=== PATIENT | female | born 1935 | race Caucasian/White ===

== ENCOUNTER 2017-04-18 17:55 | Inpatient (IN) | payer MEDICARE, BC ==
[2017-04-18 18:51] LABS: Basophils % (A) 1 %; CH 28.9; CHCM 33.1; Eosinophils # (A) 0.5 k/uL (0-0.7); Eosinophils % (A) 6 %; HCT 40.3 % (34.0-46.0); HGB 13.4 gm/dL (11.4-16.0); Luc # (Auto) 0.12; Luc % (Auto) 2; Lymphocytes % (A) 28 %; MCH 29.2 pg (25.0-35.0); MCHC 33.3 g/dL (31.0-37.0); MCV 87.7 fL (80.0-100.0); Mean Platelet Volume 7.5; Monocytes # (A) 0.5 k/uL (0-1.0); Monocytes % (A) 6 %; Neutrophils # (A) 4.2 k/uL (1.3-7.7); Neutrophils % (A) 58 %; RDW 13.8 % (11.5-15.5); WBC 7.3 k/uL (3.8-10.6); WBC (Perox) 7.12
--- NOTE | 2017-04-18 18:52 | XR ---
EXAMINATION TYPE: XR foot complete RT DATE OF EXAM: 04/18/2017 CLINICAL HISTORY: Nonhealing wound of the great toe. History of diabetes TECHNIQUE: Frontal, lateral, and oblique images of the right foot are obtained. COMPARISON: None FINDINGS: There is no acute fracture/dislocation evident in the right foot. The there is loss of renee int space of the fifth distal interphalangeal joint and to a lesser degree of the remaining distal in terphalangeal joints. Bridging osteophytes are seen of the fifth distal interphalangeal joint. Mild soft tissue swelling is seen of the first digit without evidence of subcutaneous emphysema or ra diopaque foreign body. No cortical disruption, cortical erosion, or periosteal reaction is seen. Vasc ular calcifications are noted of the dorsalis pedis artery and its branches. Prior fracture deformity is seen of the fifth metatarsal distally. IMPRESSION: 1. Soft tissue swelling of the first digit without evidence of periosteal reaction, subcutaneous emph ysema, or cortical erosion to suggest underlying osteomyelitis. 2. Prior fracture deformity of the right distal metatarsal. 3. Osteoarthritic changes. 4. There is no acute fracture or dislocation in the right foot.
[2017-04-18] MEDS ORDERED: LEVOFLOXACIN 750MG-D5W PMX 750 MG in DEXTROSE/WATER 1 150ML.BAG IVPB STA (19:00)
[2017-04-18] MEDS ORDERED: ACETAMINOPHEN TAB 325 MG TAB PO PRN ×2 (19:05→21:51)
[2017-04-18] MEDS ORDERED: NALOXONE 0.4 MG/ML 1 ML VIAL IV PRN (19:05)
--- NOTE | 2017-04-18 19:05 | ED ---
General Adult HPI - General Source: patient, family, RN notes reviewed Mode of arrival: wheelchair Limitations: physical limitation <Shaq Belcher - Last Filed: 04/18/17 19:03> <Mihai Cortez - Last Filed: 04/18/17 21:51> - General Chief complaint: Wound/Laceration Stated complaint: wound infection Time Seen by Provider: 04/18/17 18:15 - History of Present Illness Initial comments: 81-year-old female presents emergency Department with chief complaint of infection to her right foot. Patient states she's been dealing with this for a while now. Patient states she is seen in the wound Center by Dr. Khan and has had increase in her symptoms with new growth of pseudomonas. Patient was sent over here for admission. Denies any fevers or chills she does complain of increasing pain in her foot. (Shaq Belcher) - Related Data Home Medications Medication Instructions Recorded Confirmed Gabapentin [Neurontin] 100 mg PO TID 11/29/16 04/18/17 Insulin NPH/Reg Insulin 70/30 20 unit SQ W/SUPPER 11/29/16 04/18/17 [humuLIN 70/30 VIAL] Insulin NPH/Reg Insulin 70/30 35 unit SQ W/BRKFST 11/29/16 04/18/17 [humuLIN 70/30 VIAL] Vitamin B Complex 1 cap PO DAILY 11/29/16 04/18/17 metFORMIN HCL 1,000 mg PO BID-W/MEALS 11/29/16 04/18/17 Cholecalciferol [Vitamin D3] 1,000 unit PO DAILY 12/13/16 04/18/17 Nitroglycerin Sl Tabs [Nitrostat] 0.4 mg SUBLINGUAL Q5M PRN 12/13/16 04/18/17 Omeprazole [PriLOSEC] 40 mg PO AC-BRKFST 12/13/16 04/18/17 Pentoxifylline 400 mg PO TID 12/13/16 04/18/17 Sertraline HCl [Zoloft] 25 mg PO DAILY 12/13/16 04/18/17 Simvastatin [Zocor] 40 mg PO HS 12/13/16 04/18/17 Trospium Chloride [Sanctura] 20 mg PO HS 12/13/16 04/18/17 Acetaminophen Tab [Tylenol Tab] 325 mg PO Q6H PRN 03/21/17 04/18/17 Diltiazem Oral [Cardizem Oral] 30 mg PO TID 03/21/17 04/18/17 Furosemide [Lasix] 40 mg PO DAILY 03/21/17 04/18/17 Metoprolol Succinate (ER) [Toprol 25 mg PO BID 03/21/17 04/18/17 Xl] Potassium Chloride [K-Tab ER] 20 meq PO DAILY 03/21/17 04/18/17 Cephalexin [Keflex] 500 mg PO Q6H 04/11/17 04/18/17 Aspirin EC [Ecotrin Low Dose] 81 mg PO DAILY 04/18/17 04/18/17 Ibuprofen [Motrin] 200 mg PO BID PRN 04/18/17 04/18/17 Lisinopril [Zestril] 2.5 mg PO DAILY 04/18/17 04/18/17 Allergies Allergy/AdvReac Type Severity Reaction Status Date / Time morphine Allergy Rapid Verified 04/18/17 18:05 Heart Rate Review of Systems ROS Other: All systems not noted in ROS Statement are negative. <Shaq Belcher - Last Filed: 04/18/17 19:03> ROS Other: All systems not noted in ROS Statement are negative. <Mihai Cortez - Last Filed: 04/18/17 21:51> ROS Statement: Those systems with pertinent positive or pertinent negative responses have been documented in the HPI. Past Medical History Past Medical History: Coronary Artery Disease (CAD), Cancer, Diabetes Mellitus, Hearing Disorder / Deafness, Hypertension, Osteoarthritis (OA) Additional Past Medical History / Comment(s): diverticultis, rt arm fx, cervical cancer, pancreatitis, right foot infection History of Any Multi-Drug Resistant Organisms: None Reported, Other MDRO Date of last positivie culture/infection: 2016 MDRO Source:: right foot Past Surgical History: Bowel Resection, Hysterectomy, Orthopedic Surgery Past Anesthesia/Blood Transfusion Reactions: No Reported Reaction Past Psychological History: No Psychological Hx Reported Smoking Status: Former smoker Past Alcohol Use History: None Reported Past Drug Use History: None Reported - Past Family History Mother Family Medical History: No Reported History <Shaq Belcher - Last Filed: 04/18/17 19:03> General Exam Limitations: physical limitation General appearance: alert, in no apparent distress Neck exam: Present: normal inspection. Absent: tenderness, meningismus, lymphadenopathy Respiratory exam: Present: normal lung sounds bilaterally. Absent: respiratory distress, wheezes, rales, rhonchi, stridor Cardiovascular Exam: Present: regular rate, normal rhythm, normal heart sounds. Absent: systolic murmur, diastolic murmur, rubs, gallop, clicks Extremities exam: Present: other (Right foot there is a wound on the dorsal aspect of the foot just proximal to the first MTP approximately 1 cm deep 1 cm wide mildly tender) <Shaq Belcher - Last Filed: 04/18/17 19:03> Course <Shaq Belcher - Last Filed: 04/18/17 19:03> <Mihai Cortez - Last Filed: 04/18/17 21:51> Vital Signs 04/18/17 04/18/17 18:01 19:21 Temperature 97.0 F L 98.2 F Pulse Rate 77 69 Respiratory 16 20 Rate Blood Pressure 153/98 170/80 O2 Sat by Pulse 98 98 Oximetry - Reevaluation(s) Reevaluation #1: 04/18/17 21:50 21 4 3 times a day when necessary brought to my attention that patient question of a hives on the left forearm family is concerned about ALLERGIC reaction to quinolones patient has no chest pain no shortness of breath no tightening of the throat. On examination I did notice that there was area which looks like hives about 5 x 6 cm in size on the left forearm Levaquin was stopped patient was given Benadryl 50 mg IV there were no other signs of any systemic ALLERGIC reaction at this point Levaquin was discontinued and patient was started on is cefepime the patient was hemodynamically absolutely stable (Mihai Cortez) Medical Decision Making - Lab Data Result diagrams: 04/18/17 18:38 <Shaq Belcher - Last Filed: 04/18/17 19:03> - Lab Data Result diagrams: 04/18/17 18:38 04/18/17 20:08 <Mihai Cortez - Last Filed: 04/18/17 21:51> - Lab Data Lab Results 04/18/17 04/18/17 Range/Units 18:38 18:38 WBC 7.3 (3.8-10.6) k/uL RBC 4.60 (3.80-5.40) m/uL Hgb 13.4 (11.4-16.0) gm/dL Hct 40.3 (34.0-46.0) % MCV 87.7 (80.0-100.0) fL MCH 29.2 (25.0-35.0) pg MCHC 33.3 (31.0-37.0) g/dL RDW 13.8 (11.5-15.5) % Plt Count 203 (150-450) k/uL Neutrophils % 58 % Lymphocytes % 28 % Monocytes % 6 % Eosinophils % 6 % Basophils % 1 % Neutrophils # 4.2 (1.3-7.7) k/uL Lymphocytes # 2.0 (1.0-4.8) k/uL Monocytes # 0.5 (0-1.0) k/uL Eosinophils # 0.5 (0-0.7) k/uL Basophils # 0.0 (0-0.2) k/uL Plasma Lactic Acid [place] 2.0 (0.7-2.0) mmol/L Disposition <Shaq Belcher - Last Filed: 04/18/17 19:03> <Mihai Cortez - Last Filed: 04/18/17 21:51> Clinical Impression: Diabetic foot ulcer, Failure of outpatient treatment Disposition: ADMITTED IP TO THIS HOSP Condition: Good
[2017-04-18 20:43] LABS: Anion Gap 12 mmol/L; Blood Urea Nitrogen 19 mg/dL (7-17); Calcium 9.5 mg/dL (8.4-10.2); Carbon Dioxide 26 mmol/L (22-30); Chloride 103 mmol/L (98-107); Glucose 119 mg/dL (74-99); Non-African American GFR(MDRD) >60 (>60 ml/min/1.73 sqM); Potassium 4.6 mmol/L (3.5-5.1); Sodium 141 mmol/L (137-145)
[2017-04-18] MEDS ORDERED: diphenhydrAMINE 50 MG/ML 1 ML VIAL IVP STA ×2 (21:46→21:49)
[2017-04-18] MEDS ORDERED: CEFEPIME 2 GM in SODIUM CHLORIDE 0.9% 50 ML IVPB STA (21:48)
[2017-04-18] MEDS ORDERED: diphenhydrAMINE 50 MG/ML 1 ML VIAL IVP PRN (21:49)
[2017-04-18] MEDS ORDERED: NITROGLYCERIN SL TABS 0.4 MG TAB SUBLINGUAL PRN (21:51)
--- NOTE | 2017-04-18 23:02 | P.HPIM ---
History of Present Illness H&P Date: 04/18/17 Chief Complaint: Right foot History of presenting complaint: This is a pleasant 81-year-old patient of Dr. Ulysses Jaramillo. Chronic stable medical conditions include coronary artery disease, diabetes, hard of hearing, osteoarthritis, peripheral neuropathy. Patient is a long-standing wound on the ball of the right big toe and has been following at the wound care center by Dr. Luciano the probably every week. Now patient noticed that is becoming more painful red and is draining from it. Cultures taken last seen by Dr. Luciano showing Pseudomonas. Has patient is admitted to the hospital. Patient denies any fever nausea vomiting. Appetite is maintained. GEN.: None EYES: None HEENT: Decreased hearing NECK: None RESPIRATORY: None CARDIOVASCULAR: None GASTROINTESTINAL: None GENITOURINARY: None MUSCULOSKELETAL: Pain in the joints LYMPHATICS: None HEMATOLOGICAL: None PSYCHIATRY: None NEUROLOGICAL: Numbness in the feet Past medical history: Coronary artery disease, diabetes, [place] arthritis, diverticulitis, rectal cancer, peripheral neuropathy, recent pancreatitis Past surgical history: Recently stones removed leading to pancreatitis, bowel resection, hysterectomy, orthopedic surgery, cholecystectomy Social history: Patient's smoked for a smaller time remotely, no alcohol, lives by herself, uses a walker Family history: Reviewed, unremarkable VITAL SIGNS: 98.8, 74, 18, 121/46, 98% room air GENERAL: Average built BMI 31.9, sitting up, comfortable. EYES: Pupils equal. Conjunctiva normal. HEENT: External appearance of nose and ears normal, oral cavity grossly normal, decreased hearing. NECK: JVD not raised; masses not palpable. HEART: First and second heart sounds are normal; no edema. LUNGS: Respiratory rate normal; clear to auscultation. ABDOMEN: Soft, nontender, liver spleen not palpable, no masses palpable. LYMPHATICS: No lymph nodes palpable in the axilla and neck. PSYCH: Alert and oriented x3; mood and affect normal. NEUROLOGICAL: Cranial nerves grossly intact; no facial asymmetry, power grossly intact, decreased sensation distally especially the feet. DERMATOLOGICAL: Ulcer/wound with surrounding cellulitis around the ball of the big toe, with tenderness Investigations: White count 7.3, hemoglobin 13.4, potassium 4.6, BUN 19, creatinine 0.70 Wound culture growing pseudomonas aeruginosa from 1 week ago Assessment: Acute and chronic wound to diabetic ulcer following peripheral neuropathy at the ball of the right big toe and feet outpatient treatment no growing pseudomonas and culture, rule out ostia mellitus -Coronary artery disease -Diabetes mellitus type 2 chronically on insulin, causing peripheral neuropathy Chronically hard of hearing Primary osteoarthritis multiple joints bilateral special of the hands and knees Chronic gait dysfunction Pain: Consultation to ID and vascular surgery is done. Home medications be resumed. Accu-Cheks be followed. Patient started on IV cefepime. Care was discussed the patient and questions were answered. Past Medical History Past Medical History: Coronary Artery Disease (CAD), Cancer, Diabetes Mellitus, Hearing Disorder / Deafness, Hypertension, Osteoarthritis (OA) Additional Past Medical History / Comment(s): diverticultis, rt arm fx, cervical cancer, pancreatitis, right foot infection, gall stones and removal History of Any Multi-Drug Resistant Organisms: None Reported, Other MDRO Date of last positivie culture/infection: 2016 MDRO Source:: right foot Past Surgical History: Bowel Resection, Hysterectomy, Orthopedic Surgery Past Anesthesia/Blood Transfusion Reactions: No Reported Reaction Past Psychological History: No Psychological Hx Reported Smoking Status: Former smoker Past Alcohol Use History: None Reported Additional Past Alcohol Use History / Comment(s): Smoked sporadically for a few yrs, quit in her 30's. Past Drug Use History: None Reported - Past Family History Mother Family Medical History: No Reported History Medications and Allergies Home Medications Medication Instructions Recorded Confirmed Type Gabapentin [Neurontin] 100 mg PO TID 11/29/16 04/18/17 History Insulin NPH/Reg Insulin 70/30 20 unit SQ W/SUPPER 11/29/16 04/18/17 History [humuLIN 70/30 VIAL] Insulin NPH/Reg Insulin 70/30 35 unit SQ W/BRKFST 11/29/16 04/18/17 History [humuLIN 70/30 VIAL] Vitamin B Complex 1 cap PO DAILY 11/29/16 04/18/17 History metFORMIN HCL 1,000 mg PO BID-W/MEALS 11/29/16 04/18/17 History Cholecalciferol [Vitamin D3] 1,000 unit PO DAILY 12/13/16 04/18/17 History Nitroglycerin Sl Tabs [Nitrostat] 0.4 mg SUBLINGUAL Q5M PRN 12/13/16 04/18/17 History Omeprazole [PriLOSEC] 40 mg PO AC-BRKFST 12/13/16 04/18/17 History Pentoxifylline 400 mg PO TID 12/13/16 04/18/17 History Sertraline HCl [Zoloft] 25 mg PO DAILY 12/13/16 04/18/17 History Simvastatin [Zocor] 40 mg PO HS 12/13/16 04/18/17 History Trospium Chloride [Sanctura] 20 mg PO HS 12/13/16 04/18/17 History Acetaminophen Tab [Tylenol Tab] 325 mg PO Q6H PRN 03/21/17 04/18/17 History Diltiazem Oral [Cardizem Oral] 30 mg PO TID 03/21/17 04/18/17 History Furosemide [Lasix] 40 mg PO DAILY 03/21/17 04/18/17 History Metoprolol Succinate (ER) [Toprol 25 mg PO BID 03/21/17 04/18/17 History Xl] Potassium Chloride [K-Tab ER] 20 meq PO DAILY 03/21/17 04/18/17 History Cephalexin [Keflex] 500 mg PO Q6H 04/11/17 04/18/17 History Aspirin EC [Ecotrin Low Dose] 81 mg PO DAILY 04/18/17 04/18/17 History Ibuprofen [Motrin] 200 mg PO BID PRN 04/18/17 04/18/17 History Lisinopril [Zestril] 2.5 mg PO DAILY 04/18/17 04/18/17 History Allergies Allergy/AdvReac Type Severity Reaction Status Date / Time levofloxacin [From Levaquin] Allergy Mild Rash/Hives Unverified 04/18/17 22:05 morphine Allergy Rapid Verified 04/18/17 18:05 Heart Rate Results CBC & Chem 7: 04/18/17 18:38 04/18/17 20:08
[2017-04-18] MEDS: HYDROcodone/APAP 5-325MG 1 EACH TAB PO PRN (23:04)
[2017-04-18] MEDS: OXYBUTYNIN XL 5 MG TAB.ER.24 PO SCH (23:51)
[2017-04-18] MEDS: DILTIAZEM ORAL 30 MG TAB PO SCH (23:52)
[2017-04-18] MEDS: ATORVASTATIN 20 MG TAB PO SCH (23:52)
[2017-04-18] MEDS: GABAPENTIN 100 MG CAP PO SCH (23:52)
[2017-04-18] MEDS: PENTOXIFYLLINE 400 MG TABLET.ER PO SCH (23:53)
[2017-04-18] MEDS: METOPROLOL SUCCINATE (ER) 25 MG TAB.ER.24H PO SCH (23:53)
[2017-04-19] MEDS: IBUPROFEN 200 MG TAB PO PRN ×2 (03:30→08:33)
[2017-04-19] MEDS: HYDROcodone/APAP 5-325MG 1 EACH TAB PO PRN ×4 (03:32→21:00)
[2017-04-19 07:17] LABS: Glucose,Whole Blood 204 mg/dL (75-99)
[2017-04-19] MEDS: POTASSIUM CHLORIDE ER 20 MEQ TAB.ER PO SCH (07:56)
[2017-04-19] MEDS: DILTIAZEM ORAL 30 MG TAB PO SCH ×4 (07:56→20:56)
[2017-04-19] MEDS: GABAPENTIN 100 MG CAP PO SCH ×3 (07:56→20:56)
[2017-04-19] MEDS: ENOXAPARIN 40 MG/0.4 ML SYRINGE SQ SCH (07:56)
[2017-04-19] MEDS: metFORMIN 500 MG TAB PO SCH ×2 (07:56→17:27)
[2017-04-19] MEDS: LISINOPRIL 2.5 MG TAB PO SCH (07:56)
[2017-04-19] MEDS: PANTOPRAZOLE 40 MG TABLET PO SCH (07:56)
[2017-04-19] MEDS: PENTOXIFYLLINE 400 MG TABLET.ER PO SCH ×3 (07:56→17:27)
[2017-04-19] MEDS: METOPROLOL SUCCINATE (ER) 25 MG TAB.ER.24H PO SCH ×2 (07:56→20:55)
[2017-04-19] MEDS: INSULIN NPH/REG INSULIN 70/30 300 UNIT/3 ML VIAL SQ SCH ×2 (07:57→17:26)
[2017-04-19] MEDS: FUROSEMIDE 40 MG TAB PO SCH (07:57)
[2017-04-19] MEDS: SERTRALINE 25 MG TAB PO SCH (07:57)
[2017-04-19] MEDS: ASPIRIN 81 MG CHEW PO SCH (07:57)
[2017-04-19] MEDS ORDERED: CEFEPIME 2 GM in SODIUM CHLORIDE 0.9% 50 ML IVPB SCH (09:00)
[2017-04-19] MEDS: CHOLECALCIFEROL 1,000 UNIT TAB PO SCH (11:53)
[2017-04-19] MEDS: B COMPLEX-VIT C-VIT E-ZINC 1 EACH TAB PO SCH (11:53)
[2017-04-19 12:13] LABS: Glucose,Whole Blood 281 mg/dL (75-99)
[2017-04-19 12:47] VITALS: BMI 31.8
[2017-04-19] MEDS: COLLAGENASE 250 UNIT/GM OINTMENT 30 GM TUBE TOPICAL SCH (13:33)
[2017-04-19 13:43] LABS: Glucose,Whole Blood 238 mg/dL (75-99)
[2017-04-19 17:12] LABS: Glucose,Whole Blood 177 mg/dL (75-99)
[2017-04-19] MEDS ORDERED: LEVOFLOXACIN 750MG-D5W PMX 750 MG in DEXTROSE/WATER 1 150ML.BAG IVPB SCH (20:00)
[2017-04-19] MEDS: ATORVASTATIN 20 MG TAB PO SCH (20:55)
[2017-04-19] MEDS: OXYBUTYNIN XL 5 MG TAB.ER.24 PO SCH (20:55)
[2017-04-19 20:57] LABS: Glucose,Whole Blood 169 mg/dL (75-99)
[2017-04-20] MEDS: HYDROcodone/APAP 5-325MG 1 EACH TAB PO PRN ×4 (01:07→17:15)
[2017-04-20 07:49] LABS: Glucose,Whole Blood 107 mg/dL (75-99)
--- NOTE | 2017-04-20 08:15 | CONS ---
DATE OF SERVICE: 04/19/2017 Reason for consultation is right big toe diabetic foot infection with cellulitis. HISTORY OF PRESENT ILLNESS: The patient is an 81-year-old female who apparently did develop a wound on the dorsum aspect of the right big toe at the base which has been going on for a few weeks now. The patient was noticed to have more swelling and redness on the wound last Tuesday where the patient did have debridement of the wound done and she did have cultures obtained. She was subsequently started on oral Keflex. On evaluation yesterday, she was noticed to have worsening of the swelling and redness with the wound culture showing Pseudomonas aeruginosa. Hence, the patient has been admitted to the hospital. He was started on Cefepime and I was asked to see the patient for further recommendations regarding antibiotic therapy. Patient had been complaining of pain in the big toe to be mostly throbbing 6 to 7 out of 10 and no radiation. The patient did have very minimal drainage from it. Still had some surrounding swelling and redness, but denies any high grade fever or chills. The patient did have x-rays of the right foot done by the ER physician, which did show soft tissue swelling of the first digit without evidence of periosteal reaction, subcutaneous emphysema or cortical erosion. REVIEW OF SYSTEMS: CONSTITUTIONAL: Positive for weakness, but no high grade fever. EYES: No complaint. ENT: No complaint. RESPIRATORY: No complaint. CARDIOVASCULAR: No complaint. GENITOURINARY: No complaint. GASTROINTESTINAL: No complaint. MUSCULOSKELETAL: As per HPI. INTEGUMENTARY: As per HPI. PSYCHOLOGICAL: No complaint. ENDOCRINE: No complaint. NEUROLOGICAL: No complaint. PAST MEDICAL HISTORY: Significant for coronary artery disease, diabetes mellitus, osteoarthritis, diverticulitis,( ) cancer, peripheral neuropathy and pancreatitis. PAST SURGICAL HISTORY: ERCP and stone removal, bowel resection, hysterectomy, cholecystectomy. SOCIAL HISTORY: Remote history of smoking for a short time. No drinking or any drug use. FAMILY HISTORY: No pertinent findings were noticed. Allergies to LEVOFLOXACIN and MORPHINE. Medications include the patient is currently on Tylenol, [place], aspirin, Lipitor , cefepime, vitamin D3, Cardizem, Benadryl, Lovenox, Lasix, Neurontin, Advil, Humalog 70/30, Glucophage, Toprol XL, Nitrostat, Ditropan XL, Protonix and Zoloft. On examination, her blood pressure is 117/68 with a pulse of 90, temperature 96.9. She is 92% on room air. General description is an elderly female lying in bed, in no distress. No tachypnea or accessory muscle of respiration use. HEENT examination shows no pallor or scleral icterus. Oral mucous membranes dry. NECK: Trachea central. No thyromegaly. LUNGS: Unlabored breathing. Clear to auscultation anteriorly. HEART: S1, S2. Regular rate and rhythm. ABDOMEN: Soft. No tenderness. EXTREMITIES: No edema of feet. Examination of the right big toe on the dorsum, she did have a wound with slough tissue at the bases. Did have some surrounding erythema. The wound base was cleaned and recultured. NEUROLOGICALLY: The patient is awake, alert, oriented x3. Mood and affect normal. LABS: Hemoglobin is 13.4, white count is 7.3 with a BUN of 19, creatinine 0.70. Electrolytes have been normal. DIAGNOSTIC IMPRESSION AND PLAN: Patient with right diabetic foot infection with a nonhealing wound with secondary cellulitis with gram negative. Wound culture done on patient did show Pseudomonas aeruginosa. Unfortunately, the patient is resistant to LEVOFLOXACIN and cannot take the oral Cipro for treatment of the same. Subsequently, the patient will be admitted to the hospital and started on the cefepime. The x-ray is negative for any bony erosion. PLAN: 1. Local wound care with Santyl followed by moist dressing. 2. Switch antibiotic therapy to Fortaz 2 grams q.8 hour. 3. ( ) on clinical response and in view of her allergies to LEVOFLOXACIN , the patient will likely need a PICC line for outpatient IV antibiotic therapy. Thank you for this consultation. Will follow this patient along with you. WADE
[2017-04-20] MEDS: metFORMIN 500 MG TAB PO SCH ×2 (08:30→18:20)
[2017-04-20] MEDS: INSULIN NPH/REG INSULIN 70/30 300 UNIT/3 ML VIAL SQ SCH ×2 (08:30→18:20)
[2017-04-20] MEDS: LISINOPRIL 2.5 MG TAB PO SCH (08:31)
[2017-04-20] MEDS: METOPROLOL SUCCINATE (ER) 25 MG TAB.ER.24H PO SCH ×2 (08:31→21:48)
[2017-04-20] MEDS: ASPIRIN 81 MG CHEW PO SCH (08:31)
[2017-04-20] MEDS: GABAPENTIN 100 MG CAP PO SCH ×3 (08:31→21:50)
[2017-04-20] MEDS: DILTIAZEM ORAL 30 MG TAB PO SCH ×3 (08:31→21:50)
[2017-04-20] MEDS: POTASSIUM CHLORIDE ER 20 MEQ TAB.ER PO SCH (08:31)
[2017-04-20] MEDS: PANTOPRAZOLE 40 MG TABLET PO SCH (08:31)
[2017-04-20] MEDS: PENTOXIFYLLINE 400 MG TABLET.ER PO SCH ×3 (08:31→18:20)
[2017-04-20] MEDS: FUROSEMIDE 40 MG TAB PO SCH (08:31)
[2017-04-20] MEDS: SERTRALINE 25 MG TAB PO SCH (08:31)
[2017-04-20] MEDS: ENOXAPARIN 40 MG/0.4 ML SYRINGE SQ SCH ×2 (08:32→12:56)
[2017-04-20] MEDS: CHOLECALCIFEROL 1,000 UNIT TAB PO SCH (12:10)
[2017-04-20] MEDS: B COMPLEX-VIT C-VIT E-ZINC 1 EACH TAB PO SCH (12:10)
[2017-04-20 12:11] LABS: Glucose,Whole Blood 153 mg/dL (75-99)
[2017-04-20] MEDS: COLLAGENASE 250 UNIT/GM OINTMENT 30 GM TUBE TOPICAL SCH (16:27)
[2017-04-20 17:02] LABS: Glucose,Whole Blood 96 mg/dL (75-99)
[2017-04-20 21:10] LABS: Glucose,Whole Blood 76 mg/dL (75-99)
--- NOTE | 2017-04-20 21:21 | PN ---
DATE OF SERVICE: 04/20/2017 REASON FOR FOLLOWUP: Right big toe pseudomonas wound infection. INTERVAL HISTORY: The patient is afebrile. She denies significant chest pain or shortness of breath or cough. No abdominal pain or any worsening pain to the right big toe area. On examination, blood pressure is 106/73 with a pulse of 88, temperature 98. She is 90% on room air. General description is an elderly female lying in bed in no distress. RESPIRATORY SYSTEM: Unlabored breathing. Clear to auscultation anteriorly. HEART: S1, S2. Regular rate and rhythm. ABDOMEN: Soft. No tenderness. Right big toe swelling and redness are slightly improved. DIAGNOSTIC IMPRESSION AND PLAN: Patient with right big toe wound, diabetic foot wound, with secondary cellulitis ( ) patient with pseudomonas. Patient unfortunately is allergic to levofloxacin; hence no oral options are available. She will get a PICC line for outpatient IV antibiotic therapy in the form of Fortaz 2 grams q.8. PICC will be placed tomorrow once her blood culture is negative at 72 hours. WADE
[2017-04-20] MEDS: ATORVASTATIN 20 MG TAB PO SCH (21:48)
[2017-04-20] MEDS: OXYBUTYNIN XL 5 MG TAB.ER.24 PO SCH (21:50)
[2017-04-20] MEDS ORDERED: LACTULOSE 20 GM/30 ML CUP PO ONE (23:44)
[2017-04-20] MEDS ORDERED: SENNOSIDES 8.6 MG TAB PO PRN (23:45)
--- NOTE | 2017-04-20 23:46 | P.PN ---
<Destini Dent - Last Filed: 04/20/17 23:25> Progress Note - Text DATE OF SERVICE: 04/20/2017 PRESENTING COMPLAINT: Right foot pain INTERVAL HISTORY: 81-year-old female with a long-standing wound on the ball of the right big toe, noticed that it became more painful and red and had drainage coming from it. Cultures were taken and cultures revealed Pseudomonas. 04/20/2017: Patient continues to complain of pain to the right great toe. However states it is some better. Appetite is fair, ambulatory with some assistance to and from the bathroom. No BMs since day of admission. REVIEW OF SYSTEMS: Done for constitutional ,cardiovascular, GI, pulmonary dermatologic with relevant findings as above. CURRENT MEDICATIONS Tylenol, [place], aspirin, Lipitor, ceftaz edema, Santyl, Cardizem, Lasix, Neurontin, Glucophage, Toprol-XL. PHYSICAL EXAM VITAL SIGNS: Temperature 98.0 pulse 88, respirations 18, blood pressure 106/73, oxygen saturation 90% on room air. GENERAL APPEARANCE: Average build. Lying in bed, not in distress. EYES: Pupils equal. Conjunctiva normal. NECK: JVD not raised. Mass not palpable. RESPIRATORY: Respiratory effort normal. Lungs diminished to auscultation. CARDIOVASCULAR: First and second sounds normal. No edema. ABDOMEN: Soft. Liver and spleen not palpable. No tenderness. No mass palpable. PSYCHIATRY: Alert and oriented x3. Mood and affect normal. DERMATOLOGIC: Ulcer wound with surrounding cellulitis on the base of the right great toe tender to palpation. INVESTIGATIONS: None new ASSESSMENT: -Acute on chronic wound to diabetic ulcer following peripheral neuropathy at the ball of the right big toe and feet outpatient treatment no growing pseudomonas and culture, rule out ostia mellitus -Coronary artery disease -Diabetes mellitus type 2 chronically on insulin, causing peripheral neuropathy -Chronically hard of hearing -Primary osteoarthritis multiple joints bilateral special of the hands and knees -Chronic gait dysfunction PLAN: Right big toe wound with secondary cellulitis found with Pseudomonas. Patient has ALLERGIES to levofloxacin consequently there are no oral agents available once her blood cultures are negative for 72 hours decline will be placed and she will receive 2 g of Fortaz every 8 hours. Patient may require placement and extended care facility to receives said antibiotics. Plan of care has been discussed with the patient and she is agreeable. BRIDGE MANAGER statement: Patient was seen and examined by nurse practitioner eDstini Dent and all elements of the case discussed with attending Dr. Rogers <Gabino Rogers - Last Filed: 04/21/17 16:29> Progress Note - Text Attending note. Date of service-04/20/2017 This patient was seen and examined by me . I reviewed the note of my nurse practitioner, Ms. Dent. Discussed with her, additional findings as below. Comfortable. No new issues. Pain in the right foot a bit better. Getting IV antibiotics. On examination: Lungs-decreased breath sounds, cardiovascular-first seconds are normal, one to the right foot Investigations: Cultures-initially showing Pseudomonas Assessment and plan: Born on the right ball of foot initially growing Pseudomonas, on IV ceftaz. IDs planning a PICC line. Care was discussed with the patient probably will go to inpatient rehab
[2017-04-21 02:04] LABS: Glucose,Whole Blood 64 mg/dL (75-99)
[2017-04-21 02:12] LABS: Glucose,Whole Blood 87 mg/dL (75-99)
[2017-04-21 06:58] LABS: Glucose,Whole Blood 162 mg/dL (75-99)
[2017-04-21] MEDS: METOPROLOL SUCCINATE (ER) 25 MG TAB.ER.24H PO SCH ×2 (07:52→20:32)
[2017-04-21] MEDS: GABAPENTIN 100 MG CAP PO SCH ×3 (07:52→21:23)
[2017-04-21] MEDS: PENTOXIFYLLINE 400 MG TABLET.ER PO SCH ×3 (07:52→17:49)
[2017-04-21] MEDS: metFORMIN 500 MG TAB PO SCH ×2 (07:52→17:48)
[2017-04-21] MEDS: DILTIAZEM ORAL 30 MG TAB PO SCH ×3 (07:52→21:23)
[2017-04-21] MEDS: LISINOPRIL 2.5 MG TAB PO SCH (07:52)
[2017-04-21] MEDS: SERTRALINE 25 MG TAB PO SCH (07:52)
[2017-04-21] MEDS: ASPIRIN 81 MG CHEW PO SCH (07:53)
[2017-04-21] MEDS: PANTOPRAZOLE 40 MG TABLET PO SCH (07:53)
[2017-04-21] MEDS: POTASSIUM CHLORIDE ER 20 MEQ TAB.ER PO SCH (07:53)
[2017-04-21] MEDS: FUROSEMIDE 40 MG TAB PO SCH (07:53)
[2017-04-21] MEDS: HYDROcodone/APAP 5-325MG 1 EACH TAB PO PRN ×3 (07:57→20:43)
[2017-04-21] MEDS: INSULIN NPH/REG INSULIN 70/30 300 UNIT/3 ML VIAL SQ SCH ×2 (07:58→17:48)
[2017-04-21 09:07] LABS: Basophils % (A) 1 %; CH 28.5; CHCM 32.4; Eosinophils # (A) 0.4 k/uL (0-0.7); Eosinophils % (A) 6 %; HGB 13.4 gm/dL (11.4-16.0); Luc # (Auto) 0.15; Luc % (Auto) 2; Lymphocytes # (A) 1.6 k/uL (1.0-4.8); Lymphocytes % (A) 25 %; MCH 29.6 pg (25.0-35.0); MCHC 33.5 g/dL (31.0-37.0); MCV 88.3 fL (80.0-100.0); Mean Platelet Volume 7.3; Monocytes # (A) 0.5 k/uL (0-1.0); Monocytes % (A) 8 %; Neutrophils # (A) 3.9 k/uL (1.3-7.7); Neutrophils % (A) 59 %; RBC 4.53 m/uL (3.80-5.40); RDW 13.8 % (11.5-15.5); WBC 6.7 k/uL (3.8-10.6); WBC (Perox) 6.57
[2017-04-21 09:14] LABS: Anion Gap 11 mmol/L; Blood Urea Nitrogen 16 mg/dL (7-17); Calcium 9.3 mg/dL (8.4-10.2); Carbon Dioxide 28 mmol/L (22-30); Chloride 100 mmol/L (98-107); Glucose 235 mg/dL (74-99); Non-African American GFR(MDRD) >60 (>60 ml/min/1.73 sqM); Potassium 4.7 mmol/L (3.5-5.1); Sodium 139 mmol/L (137-145)
[2017-04-21] MEDS: COLLAGENASE 250 UNIT/GM OINTMENT 30 GM TUBE TOPICAL SCH (10:30)
[2017-04-21 12:05] LABS: Glucose,Whole Blood 148 mg/dL (75-99)
[2017-04-21] MEDS: B COMPLEX-VIT C-VIT E-ZINC 1 EACH TAB PO SCH (12:31)
[2017-04-21] MEDS: CHOLECALCIFEROL 1,000 UNIT TAB PO SCH (12:31)
[2017-04-21] MEDS ORDERED: LIDOCAINE 2% INJ 20 MG/ML SQ ONE (14:01)
[2017-04-21] MEDS: PIPERACILLIN-TAZOBACTAM 3.375 GM in DEXTROSE/WATER 1 50ML.BAG IVPB SCH ×2 (15:41→23:44)
[2017-04-21 17:41] LABS: Glucose,Whole Blood 120 mg/dL (75-99)
[2017-04-21] MEDS: ATORVASTATIN 20 MG TAB PO SCH (20:32)
[2017-04-21] MEDS: OXYBUTYNIN XL 5 MG TAB.ER.24 PO SCH (20:32)
[2017-04-21 20:53] LABS: Glucose,Whole Blood 143 mg/dL (75-99)
--- NOTE | 2017-04-21 23:43 | PN ---
DATE OF SERVICE: 04/21/2017 REASON FOR FOLLOWUP: Pseudomonas right big toe wound infection. INTERVAL HISTORY: The patient is afebrile. She is breathing comfortably. Denies any worsening pain to the right big toe area. The patient denies significant chest pain, shortness of breath or cough. No abdominal pain or any diarrhea. On examination, blood pressure 123/62 with a pulse of 82, temperature 98.6. She is 94% on room air. General description is an elderly female lying in bed in no distress. RESPIRATORY SYSTEM: Unlabored breathing. Clear to auscultation anteriorly. HEART: S1, S2. Regular rate and rhythm. ABDOMEN: Soft. No tenderness. Right big toe overall swelling and redness have slightly decreased. LABS: Hemoglobin is 13.4, white count 6.7 with a BUN of 16, creatinine 0.75. DIAGNOSTIC IMPRESSION AND PLAN: Patient with right big toe wound infection. Previous culture has been pseudomonas, but now the culture is showing a group D enterococcus. Antibiotic will be adjusted to Zosyn. That should cover both enterococcus as well as the pseudomonas. She is waiting for the PICC line for outpatient IV antibiotic therapy. There is currently no oral option available for the pseudomonas. MTDD
[2017-04-22] MEDS: HYDROcodone/APAP 5-325MG 1 EACH TAB PO PRN ×2 (04:57→12:41)
[2017-04-22 07:09] LABS: Glucose,Whole Blood 111 mg/dL (75-99)
[2017-04-22] MEDS: SERTRALINE 25 MG TAB PO SCH (07:49)
[2017-04-22] MEDS: PIPERACILLIN-TAZOBACTAM 3.375 GM in DEXTROSE/WATER 1 50ML.BAG IVPB SCH ×2 (07:49→14:43)
[2017-04-22] MEDS: FUROSEMIDE 40 MG TAB PO SCH (07:49)
[2017-04-22] MEDS: metFORMIN 500 MG TAB PO SCH (07:50)
[2017-04-22] MEDS: GABAPENTIN 100 MG CAP PO SCH (07:50)
[2017-04-22] MEDS: PENTOXIFYLLINE 400 MG TABLET.ER PO SCH ×2 (07:50→12:37)
[2017-04-22] MEDS: PANTOPRAZOLE 40 MG TABLET PO SCH (07:50)
[2017-04-22] MEDS: DILTIAZEM ORAL 30 MG TAB PO SCH (07:50)
[2017-04-22] MEDS: ASPIRIN 81 MG CHEW PO SCH (07:50)
[2017-04-22] MEDS: LISINOPRIL 2.5 MG TAB PO SCH (07:50)
[2017-04-22] MEDS: ENOXAPARIN 40 MG/0.4 ML SYRINGE SQ SCH (07:50)
[2017-04-22] MEDS: METOPROLOL SUCCINATE (ER) 25 MG TAB.ER.24H PO SCH (07:51)
[2017-04-22] MEDS: POTASSIUM CHLORIDE ER 20 MEQ TAB.ER PO SCH (07:51)
[2017-04-22] MEDS: INSULIN NPH/REG INSULIN 70/30 300 UNIT/3 ML VIAL SQ SCH (08:31)
--- NOTE | 2017-04-22 08:55 | PN ---
DATE OF SERVICE: 04/21/2017 PRESENTING COMPLAINT: Right foot wound. INTERVAL HISTORY: This is a patient with diabetic wound on the right foot from peripheral neuropathy. The cultures are now suggestive of group D enterococcus. Pain is better. Patient had a PICC line placed today. Antibiotics have been switched by Dr. Cortez. Tolerating a diet, comfortable. Review of systems done for constitutional, cardiovascular, GI, pulmonary, dermatological. Current medications are reviewed that include IV Zosyn. On examination, temperature 97.7, pulse 80, respirations 18, blood pressure 136/ 70, pulse ox 97% on room air. GENERAL APPEARANCE: Sitting up in bed, comfortable. EYES: Pupils equal, conjunctivae normal. NECK: JVD not raised, mass not palpable. RESPIRATORY EFFORT: None. LUNGS: Decreased breath sounds. CARDIOVASCULAR: First and second sound no edema. ABDOMEN: Soft, nontender. Liver and spleen not palpable. PSYCHIATRY: Alert and oriented x3. Mood and affect normal. DERMATOLOGY: Wound at the base of the right big toe. Local tenderness. INVESTIGATIONS: White count 6.7, potassium 4.7, would culture growing group D enterococcus. ASSESSMENT: 1. Acute on chronic wound to a diabetic ulcer from peripheral neuropathy on the ball of the right big toe, now growing Group D enterococcus. 2. Coronary artery disease. 3. 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 4. Chronically hard of hearing. 5. Primary osteoarthritis multiple joints, bilateral, especially of the hands and knees. 6. Chronic gait dysfunction. PLAN: Antibiotics have been switched to IV Zosyn. Patient has a PICC line in place. Looking [facility]. Care was discussed with the patient. WADE
--- NOTE | 2017-04-22 09:44 | PN ---
DATE OF SERVICE: 04/19/2017 PRESENTING COMPLAINT: Right foot infection. INTERVAL HISTORY: This patient was seen by me on 04/19/17. Patient has a diabetic wound on the right big toe ball. Pain is present. She is tolerating a diet, is on antibiotics. Full cultures are not back. ID is following the patient. Review of systems done for constitutional, cardiovascular, GI, pulmonary; relevant finding as above. Current medications are reviewed. On examination, temperature 96.9, pulse 90, respirations 18, blood pressure 117/ 68, pulse ox 92% on room air. GENERAL APPEARANCE: Sitting up in bed, comfortable. EYES: Pupils equal, conjunctivae normal. NECK: JVD not raised, mass not palpable. Respiratory effort normal. Lungs are clear. CARDIOVASCULAR SYSTEM: First and second sounds normal, no edema. ABDOMEN: Soft, nontender. Liver and spleen not palpable. PSYCHIATRY: Alert and oriented x3, mood and affect normal. EXTREMITIES: Wound on the ball of the right big toe, tenderness. INVESTIGATIONS: Accu-Cheks are noted. ASSESSMENT: 1. Acute on chronic wound with a diabetic ulcer following peripheral neuropathy at the ball of the right bit toe, having failed outpatient treatment Initial cultures showing pseudomonas. 2. Coronary artery disease. 3. Diabetes mellitus type 2, chronically on insulin, causing peripheral neuropathy. 4. Chronically hard of hearing. 5. Primary osteoarthritis multiple joints bilateral including the hands and knees. 6. Chronic gait dysfunction. PLAN: Continue medication and treatment plan. Care was discussed with the patient. Antibiotics will be coordinated by ID. WADE
[2017-04-22 12:15] LABS: Glucose,Whole Blood 121 mg/dL (75-99)
[2017-04-22] MEDS: COLLAGENASE 250 UNIT/GM OINTMENT 30 GM TUBE TOPICAL SCH (12:36)
[2017-04-22] MEDS: B COMPLEX-VIT C-VIT E-ZINC 1 EACH TAB PO SCH (12:36)
[2017-04-22] MEDS: CHOLECALCIFEROL 1,000 UNIT TAB PO SCH (12:36)
--- NOTE | 2017-04-22 12:50 | IR ---
PICC LINE PLACEMENT: HISTORY: Infection requiring long-term antibiotic therapy PROCEDURE: Ultrasound and fluoroscopic guidance of PICC line placement. COMPLICATIONS: None ANESTHESIA: 1. 1% Lidocaine locally. FINDINGS/TECHNIQUE: The procedure was explained to the patient. The risks, complications, benefits and alternatives were discussed and any questions were answered. Informed consent was obtained. The patient was placed supine on the fluoroscopic table and prepped and draped in the usual sterile critical access hospital ion. Utilizing a 21 gauge needle and sonographic and fluoroscopic guidance, access in the vein was achieved and there is placement of a 0.018 guidewire. The vein is patent. A 4-F sheath was placed o gabriel the guidewire. The guidewire and dilator were removed and a 4-F. PICC line was placed through th e sheath with the tip at the level of the SVC. The sheath was removed, the catheter was flushed and sutured into position. The patient was stable throughout the procedure and remained stable upon disc harge from the Department of Radiology. The vein puncture was patent under ultrasound. A hardin scale image was obtained to document patency of the vein punctured. All elements of the maximal barrier technique were utilized. FLUOROSCOPY TIME: 0.8 minute IMPRESSION: Successful PICC line placement under ultrasound and fluoroscopic guidance.
--- NOTE | 2017-04-22 14:15 | DS ---
FINAL DIAGNOSES: 1. Acute on chronic wound from diabetic ulcer following peripheral neuropathy at the ball of the right big toe having failed outpatient treatment. Cultures growing Enterococcus. 2. Coronary artery disease. 3. Diabetes mellitus type 2, chronically on insulin, causing peripheral neuropathy. 4. Chronically hard of hearing. 5. Primary osteoarthritis in multiple joints bilaterally including the hands and knees. 6. Chronic gait dysfunction. HOSPITAL COURSE: This patient follows with Dr. Oquendo as an outpatient with wound at the ball of the right big toe. It became more swollen and read and draining. Cultures came back positive for group B Enterococcus. PICC line was placed. Antibiotics were coordinated by Dr. Cortez doing much better at the time of discharge. On exam, lungs are clear. Cardiovascular: First and second sounds are normal. Some tenderness in the right toe wound at the right big toe. White count is 6.5, hemoglobin 13.4. DISCHARGE MEDICATIONS: 1. Zosyn 4.5 gram IV piggyback q.8 for two weeks with a weekly CBC and BMP. 2. Neurontin 100 mg p.o. t.i.d 3. Humulin 70/30 20 units with supper, 35 units with breakfast. 4. Vitamin B complex 1 capsule p.o. daily. 5. Metformin 1000 mg p.o b.i.d. 6. Nitrostat 0.4 sublingual q.5 p.r.n 7. Prilosec 40 mg p.o with breakfast. 8. ( ) 500 mg p.o t.i.d 9. Zoloft 25 mg p.o daily. 10. Zocor 40 mg p.o q.h.s 11. ( ) 20 mg p.o q.h.s 12. Tylenol 325 mg q.6 p.r.n 13. Cardizem 30 mg pot id 14. Lasix 40 mg p.o daily. 15. Toprol XL 25 mg p.o t.i.d 16. Potassium 20 mEq p.o daily. 17. Aspirin 81 mg p.o daily. 18. Motrin 200 mg p.o bid p.r.n 19. Zestril 2.5 p.o daily. 20. Santyl topical daily. 21. [place] 5 one tablet q.4 p.r.n. 22. Zosyn 4.5 grams IV piggyback q.8, 42. 23. Senokot 8.6 mg p.o bid p.r.n DISPOSITION: [place]. Follow with Dr. Ulysses Vega as an outpatient. [facility] , Dr. Cortez in one week. Follow with Dr. Oquendo in 3 weeks. Discharge planning more than 35 minutes. MTDD
[2017-04-22 14:30] VITALS: BP 113/62; PULSE 81; RESP 14; TEMP 97.7
--- NOTE | 2017-04-23 09:22 | PN ---
DATE OF SERVICE: 04/22/2017 REASON FOR FOLLOW UP: Right big toe diabetic foot infection with pseudomonas and enterococcus. INTERVAL HISTORY: The patient is afebrile. He is feeling better. The right big toe swelling and redness has improved after the patient was started on Zosyn yesterday. Denies significant chest pain, shortness of breath or cough. Has a PICC line. On examination, blood pressure 124/74 with a pulse of 83, temperature 98.9, she is 90% on room air. GENERAL DESCRIPTION: Middle-aged female up in the room in no distress. RESPIRATORY: Unlabored breathing. Clear to auscultation anteriorly. HEART: S1/S2 regular. ABDOMEN: Soft, no tenderness. Right foot swelling improved compared to yesterday. All cultures done here have been showing enterococcus. DIAGNOSTIC IMPRESSION: Patient right big toe ulcer with secondary cellulitis. Outpatient culture was positive for pseudomonas, culture in here showing enterococcus. Patient was on Fortaz, however, she did show much improvement compared to yesterday of which she was started on Zosyn. She will be continued on Zosyn.for at least two weeks. Local wound care with Santyl and outpatient follow up. WADE
== END 2017-04-22 16:17 | DRG 638 ==
LOC: EC 17:55 → 4MS4W 19:06
PROVIDERS: ADMIT Hospitalist; ATTEND Hospitalist
PROC: 02HV33Z Insertion of Infusion Device into Superior Vena Cava, Percutaneous Approach (ICD-10-PCS; principal; 2017-04-21 13:49)
DX: E11.628 Type 2 diabetes mellitus with other skin complications (principal); L03.115 Cellulitis of right lower limb; L97.519 Non-pressure chronic ulcer of other part of right foot with unspecified severity; E11.42 Type 2 diabetes mellitus with diabetic polyneuropathy; E11.621 Type 2 diabetes mellitus with foot ulcer; B96.5 Pseudomonas (aeruginosa) (mallei) (pseudomallei) as the cause of diseases classified elsewhere; I10 Essential (primary) hypertension; B95.2 Enterococcus as the cause of diseases classified elsewhere; I25.10 Atherosclerotic heart disease of native coronary artery without angina pectoris; R53.1 Weakness; M17.0 Bilateral primary osteoarthritis of knee; M19.041 Primary osteoarthritis, right hand; M19.042 Primary osteoarthritis, left hand; M79.1 Myalgia; H91.90 Unspecified hearing loss, unspecified ear; R26.9 Unspecified abnormalities of gait and mobility; Z79.899 Other long term (current) drug therapy; Z79.4 Long term (current) use of insulin; Z87.891 Personal history of nicotine dependence; Z85.41 Personal history of malignant neoplasm of cervix uteri; Z88.1 Allergy status to other antibiotic agents; Z88.5 Allergy status to narcotic agent; Z71.3 Dietary counseling and surveillance; Z85.048 Personal history of other malignant neoplasm of rectum, rectosigmoid junction, and anus; Z79.2 Long term (current) use of antibiotics; Z90.710 Acquired absence of both cervix and uterus; Z90.49 Acquired absence of other specified parts of digestive tract; Z86.19 Personal history of other infectious and parasitic diseases; Z87.19 Personal history of other diseases of the digestive system; Z87.81 Personal history of (healed) traumatic fracture; Z79.82 Long term (current) use of aspirin; Z79.1 Long term (current) use of non-steroidal anti-inflammatories (NSAID)
CPT/HCPCS: 36415; 36569; 76937; 77001; 80048; 83605; 85025; 87040; 87070; 87077; 87186; 87205; 96365; 99284

== ENCOUNTER 2017-11-10 13:30 | Inpatient (IN) | payer MEDICARE, BC ==
[2017-11-10] MEDS ORDERED: SODIUM CHLORIDE 0.9% 500 ML IV STA (13:56)
[2017-11-10] MEDS ORDERED: HYDROcodone/APAP 5-325MG 1 EACH TAB PO STA (13:57)
--- NOTE | 2017-11-10 14:28 | ED ---
General Adult HPI - General Chief complaint: Extremity Problem,Nontraumatic Stated complaint: Foot swelling Time Seen by Provider: 11/10/17 13:48 Source: patient, RN notes reviewed Mode of arrival: wheelchair - History of Present Illness Initial comments: 82-year-old female presents to the emergency department with a chief complaint of right foot redness and drainage. Patient states that she has had this on and off for the past year or so. Over the last today she's has increased pain increased drainage and redness to the area. She normally is no difficulty ambulating but recently she's had increased pain with ambulation to the right foot. Patient states there is no new falls traumas or injuries. She denies any chills. The home care nurse came to evaluate her and sent her in due to the increased redness and drainage. Patient denies any other symptoms at this time.Patient denies any recent fever, chills, shortness of breath, chest pain, back pain, abdominal pain, nausea vomiting, numbness or tingling, dysuria or hematuria, constipation or diarrhea, headaches or visual changes, or any other current symptoms. - Related Data Home Medications Medication Instructions Recorded Confirmed Gabapentin [Neurontin] 100 mg PO TID 11/29/16 11/10/17 Cholecalciferol [Vitamin D3] 1,000 unit PO DAILY 12/13/16 11/10/17 Nitroglycerin Sl Tabs [Nitrostat] 0.4 mg SUBLINGUAL Q5M PRN 12/13/16 11/10/17 Omeprazole [PriLOSEC] 40 mg PO DAILY 12/13/16 11/10/17 Pentoxifylline 400 mg PO TID 12/13/16 11/10/17 Sertraline HCl [Zoloft] 25 mg PO DAILY 12/13/16 11/10/17 Simvastatin [Zocor] 40 mg PO HS 12/13/16 11/10/17 Diltiazem Oral [Cardizem*] 30 mg PO TID 03/21/17 11/10/17 Furosemide [Lasix] 40 mg PO DAILY 03/21/17 11/10/17 Metoprolol Succinate (ER) [Toprol 75 mg PO BID 03/21/17 11/10/17 XL] Aspirin EC [Ecotrin Low Dose] 81 mg PO DAILY 04/18/17 11/10/17 Trospium Chloride [Sanctura] 20 mg PO HS 05/23/17 11/10/17 Ibuprofen [Motrin] 800 mg PO TID PRN 11/10/17 11/10/17 Insulin NPH/Reg Insulin 70/30 45 - 50 unit SQ HS 11/10/17 11/10/17 [humuLIN 70/30 VIAL] Insulin NPH/Reg Insulin 70/30 55 unit SQ DAILY 11/10/17 11/10/17 [humuLIN 70/30 VIAL] Lisinopril-Hctz 20-25 mg 1 tab PO DAILY 11/10/17 11/10/17 [Zestoretic 20-25] Nystatin 100,000 Unit/gm Powd 1 applic TOPICAL BID 11/10/17 11/10/17 [Mycostatin Powder] Potassium Chloride [K-Tab ER] 20 meq PO BID 11/10/17 11/10/17 SILVER sulfADIAZINE Cream 1 applic TOPICAL DAILY 11/10/17 11/10/17 [Silvadene 1% Cream] Thiamine [Vitamin B-1] 100 mg PO DAILY 11/10/17 11/10/17 Tolterodine Tartrate [Detrol LA] 4 mg PO DAILY 11/10/17 11/10/17 Vit C/E/Zn/Coppr/Lutein/Zeaxan 1 cap PO DAILY 11/10/17 11/10/17 [Preservision Areds 2 Softgel] metFORMIN HCL 1,000 mg PO BID 11/10/17 11/10/17 Allergies Allergy/AdvReac Type Severity Reaction Status Date / Time levofloxacin [From Levaquin] Allergy Mild Rash/Hives Verified 11/10/17 13:52 morphine Allergy Rapid Verified 11/10/17 13:52 Heart Rate Review of Systems ROS Statement: Those systems with pertinent positive or pertinent negative responses have been documented in the HPI. ROS Other: All systems not noted in ROS Statement are negative. Past Medical History Past Medical History: Atrial Fibrillation, Coronary Artery Disease (CAD), Cancer , Diabetes Mellitus, Hearing Disorder / Deafness, Hypertension, Osteoarthritis ( OA) Additional Past Medical History / Comment(s): diverticultis, rt arm fx, cervical cancer, pancreatitis, right foot infection, gall stones and removal, fx coccyx 08-29-17 History of Any Multi-Drug Resistant Organisms: None Reported Date of last positivie culture/infection: None MDRO Source:: None Past Surgical History: Bowel Resection, Hysterectomy, Orthopedic Surgery Additional Past Surgical History / Comment(s): Internal defibulator 09-15-17 Past Anesthesia/Blood Transfusion Reactions: No Reported Reaction Past Psychological History: No Psychological Hx Reported Smoking Status: Former smoker Past Alcohol Use History: None Reported Past Drug Use History: None Reported - Past Family History Mother Family Medical History: No Reported History General Exam - General Exam Comments Initial Comments: General: The patient is awake and alert, in no distress, and does not appear acutely ill. Neck: The neck is supple, there is no tenderness. Cardiovascular: There is a regular rate and rhythm. No murmur, rub or gallop is appreciated. Respiratory: Lungs are clear to auscultation, respirations are non-labored, breath sounds are equal. No wheezes, stridor, rales, or rhonchi. Musculoskeletal: Sensation intact with 2+ pulses throughout the right lower externa. Full range of motion of right knee right ankle and right foot. She does appear to have an open wound with some purulent drainage so stated some erythema around the area at the base of the right big toe. Some swelling noted. Neurological: CN II-XII intact, There are no obvious motor or sensory deficits. Coordination appears grossly intact. Speech is normal. Skin: Skin is warm and dry and no rashes or lesions are noted. Psychiatric: Normal mood and affect. Course Vital Signs 11/10/17 13:32 Temperature 98.1 F Pulse Rate 65 Respiratory 22 Rate Medical Decision Making - Medical Decision Making 82-year-old female presents to the emergency Department chief complaint of drainage and swelling around the right foot with associated redness. At this tenderness appear to be a right foot ulcer with associated cellulitis. Patient is also diabetic. At this time we will admit the patient due to her history of IV antibiotics for multiple weeks following an infection in the past. This was discussed with Dr. Rogers via Dr. Guadarrama who does agree to this plan. All questions have been answered. Patient will be admitted at this time. - Lab Data Result diagrams: 11/10/17 14:20 11/10/17 14:20 Lab Results 11/10/17 11/10/17 Range/Units 14:20 14:20 WBC 7.7 (3.8-10.6) k/uL RBC 4.67 (3.80-5.40) m/uL Hgb 13.7 (11.4-16.0) gm/dL Hct 41.1 (34.0-46.0) % MCV 88.1 (80.0-100.0) fL MCH 29.4 (25.0-35.0) pg MCHC 33.4 (31.0-37.0) g/dL RDW 13.0 (11.5-15.5) % Plt Count 187 (150-450) k/uL Neutrophils % 66 % Lymphocytes % 20 % Monocytes % 8 % Eosinophils % 4 % Basophils % 1 % Neutrophils # 5.1 (1.3-7.7) k/uL Lymphocytes # 1.5 (1.0-4.8) k/uL Monocytes # 0.6 (0-1.0) k/uL Eosinophils # 0.3 (0-0.7) k/uL Basophils # 0.1 (0-0.2) k/uL Sodium 142 (137-145) mmol/L Potassium 4.2 (3.5-5.1) mmol/L Chloride 102 (98-107) mmol/L Carbon Dioxide 30 (22-30) mmol/L Anion Gap 10 mmol/L BUN 27 H (7-17) mg/dL Creatinine 0.74 (0.52-1.04) mg/dL Est GFR (MDRD) Af Amer >60 (>60 ml/min/1.73 sqM) Est GFR (MDRD) Non-Af >60 (>60 ml/min/1.73 sqM) Glucose 65 L (74-99) mg/dL Calcium 9.5 (8.4-10.2) mg/dL Total Bilirubin 0.6 (0.2-1.3) mg/dL AST 19 (14-36) U/L ALT 29 (9-52) U/L Alkaline Phosphatase 86 (38-126) U/L Total Protein 6.7 (6.3-8.2) g/dL Albumin 3.9 (3.5-5.0) g/dL - Radiology Data Radiology results: report reviewed, image reviewed Disposition Clinical Impression: Cellulitis of right foot, Diabetic foot ulcer Disposition: ADMITTED IP TO THIS [facility] Condition: Stable Referrals: Ulysses Rose DO [Primary Care Provider] - 1-2 days Decision Date: 11/10/17 Decision Time: 15:54
[2017-11-10 14:56] LABS: Basophils # (A) 0.1 k/uL (0-0.2); Basophils % (A) 1 %; Eosinophils # (A) 0.3 k/uL (0-0.7); Eosinophils % (A) 4 %; HCT 41.1 % (34.0-46.0); HGB 13.7 gm/dL (11.4-16.0); Lymphocytes # (A) 1.5 k/uL (1.0-4.8); Lymphocytes % (A) 20 %; MCH 29.4 pg (25.0-35.0); MCHC 33.4 g/dL (31.0-37.0); MCV 88.1 fL (80.0-100.0); Mean Platelet Volume 7.4; Monocytes # (A) 0.6 k/uL (0-1.0); Monocytes % (A) 8 %; Neutrophils # (A) 5.1 k/uL (1.3-7.7); Neutrophils % (A) 66 %; Platelet Count 187 k/uL (150-450); RBC 4.67 m/uL (3.80-5.40); WBC 7.7 k/uL (3.8-10.6)
[2017-11-10 14:59] LABS: ALT 29 U/L (9-52); AST 19 U/L (14-36); Albumin 3.9 g/dL (3.5-5.0); Alkaline Phosphatase 86 U/L (38-126); Anion Gap 10 mmol/L; Blood Urea Nitrogen 27 mg/dL (7-17); Calcium 9.5 mg/dL (8.4-10.2); Carbon Dioxide 30 mmol/L (22-30); Chloride 102 mmol/L (98-107); Glucose 65 mg/dL (74-99); Potassium 4.2 mmol/L (3.5-5.1); Sodium 142 mmol/L (137-145); Total Bilirubin 0.6 mg/dL (0.2-1.3); Total Protein 6.7 g/dL (6.3-8.2)
--- NOTE | 2017-11-10 15:16 | XR ---
EXAMINATION TYPE: XR foot complete RT DATE OF EXAM: 11/10/2017 CLINICAL HISTORY: Right foot swelling and pain. Nonhealing wound right first digit. TECHNIQUE: Frontal, lateral, and oblique images of the right foot are obtained. COMPARISON: Right foot x-ray April 18, 2017. FINDINGS: Osseous structures are demineralized which is noted to lower radiographic sensitivity Ther e is no acute fracture/dislocation evident in the right foot. Hallex valgus positioning first metatar sophalangeal joint is present. There is marked flexion in fourth and fifth toes making evaluation at this level suboptimal. Bridging osteophytes are redemonstrated at level of fifth DIP joint. Moderate to large sized superior and inferior calcaneal spurs are redemonstrated. Anterior or dorsal vascular calcification is again seen. No new suspicious cortical destruction or periosteal reaction is identif ied. Moderate soft tissue swelling over right first digit remains present. IMPRESSION: There is no convincing radiographic evidence for acute osteomyelitis involving right jamel t in particular first toe. If clinical suspicion persists further investigation with three-phase bone scan or MRI may be warranted.
[2017-11-10] MEDS ORDERED: VANCOMYCIN IV PER PHARMACY 1 EACH MISC MISCELLANE PRN (15:43)
[2017-11-10] MEDS ORDERED: AMPICILLIN-SULBACTAM 3 GM in SODIUM CHLORIDE 0.9% 100 ML IVPB STA (15:45)
[2017-11-10] MEDS ORDERED: ONDANSETRON 4 MG/2 ML VIAL IVP PRN (15:54)
[2017-11-10] MEDS ORDERED: NALOXONE 0.4 MG/ML 1 ML VIAL IV PRN ×2 (15:54→22:35)
[2017-11-10] MEDS ORDERED: NITROGLYCERIN SL TABS 0.4 MG TAB SUBLINGUAL PRN (15:56)
[2017-11-10] MEDS ORDERED: VANCOMYCIN 1,750 MG in SODIUM CHLORIDE 0.9% 250 ML IVPB ONE (16:00)
[2017-11-10] MEDS: SODIUM CHLORIDE 0.45% 1,000 ML IV SCH (16:22)
[2017-11-10] MEDS: DILTIAZEM ORAL 30 MG TAB PO SCH ×2 (17:37→22:02)
[2017-11-10] MEDS: GABAPENTIN 100 MG CAP PO SCH ×2 (17:37→22:02)
[2017-11-10] MEDS: PENTOXIFYLLINE 400 MG TABLET.ER PO SCH ×2 (17:37→22:02)
[2017-11-10] MEDS ORDERED: TROSPIUM CHLORIDE 20 MG PO SCH (21:00)
[2017-11-10 21:51] LABS: Glucose,Whole Blood 145 mg/dL (75-99)
[2017-11-10] MEDS: METOPROLOL SUCCINATE (ER) 25 MG TAB.ER.24H PO SCH (22:03)
[2017-11-10] MEDS: POTASSIUM CHLORIDE ER 20 MEQ TAB.ER PO SCH (22:03)
[2017-11-10] MEDS: ATORVASTATIN 20 MG TAB PO SCH (22:03)
[2017-11-10] MEDS: IBUPROFEN 800 MG TAB PO PRN (22:03)
[2017-11-10] MEDS: NYSTATIN 100,000 UNIT/GM POWD 15 GM TOPICAL SCH (22:04)
[2017-11-10] MEDS ORDERED: CALCIUM CARBONATE 500 MG CHEWABLE PO PRN (22:35)
[2017-11-10] MEDS ORDERED: MELATONIN 3 MG TABLET PO PRN (22:35)
[2017-11-10] MEDS ORDERED: LORazepam 0.5 MG TAB PO PRN (22:35)
[2017-11-10] MEDS ORDERED: ACETAMINOPHEN TAB 325 MG TAB PO PRN (22:35)
[2017-11-10] MEDS ORDERED: LACTULOSE 20 GM/30 ML CUP PO PRN (22:35)
[2017-11-10] MEDS ORDERED: traMADol 50 MG TAB PO PRN (22:35)
--- NOTE | 2017-11-10 23:36 | HP ---
HISTORY AND PHYSICAL DATE OF ADMISSION: 11/10/2017 PRESENTING COMPLAINT: Right foot ulcer, painful. HISTORY OF PRESENTING COMPLAINT: This is a very pleasant 82-year-old patient of Dr. Ulysses Jaramillo. Chronic stable medical conditions include coronary artery disease, diabetes, hard of hearing, osteoarthritis, peripheral neuropathy. The patient has a chronic wound on the ball of the right big toe and follows weekly with Dr. Oquendo at the wound center. When she was last here in April, it had grown Pseudomonas. The patient has also seen Dr. Cortez from infectious disease and the final culture last admission was Enterococcus. The patient was treated with IV antibiotics. The patient 4 days ago did see Dr. Oquendo in the wound clinic, but the patient's toe is becoming much more painful, burning. The patient has poor circulation and has been draining a little bit on the dorsum and decided to come in, as she could not manage at home. Denies any fever. Appetite is fair. REVIEW OF SYSTEMS: CONSTITUTIONAL: None. HEENT: Decreased hearing. RESPIRATORY: None. CARDIOVASCULAR: None. GASTROINTESTINAL: None. MUSCULOSKELETAL: Aches and pains in different joints. DERMATOLOGICAL: As above. HEMATOLOGICAL: None. LYMPHATICS: None. PSYCHIATRY: None. NEUROLOGICAL: The patient has poor sensation in the right hand from a previous injury. PAST MEDICAL HISTORY: Atrial fibrillation, coronary artery disease, diabetes mellitus type 2, decreased hearing, hyperlipidemia, hypertension, diverticulitis, cervical cancer, pancreatitis, right foot infection, gallstones with removal, constipation, peripheral arterial disease. PAST SURGICAL HISTORY: AICD done a week ago, bowel resection, cholecystectomy, cardiac catheterization, left rotator cuff surgery , bilateral breast lumpectomy, right hand surgery with pins. SOCIAL HISTORY: Lives at a residential at [facility] in [place], has [facility], uses a walker or a 4-pronged cane. The patient does not smoke. No alcohol. FAMILY HISTORY: Coronary artery disease, diabetes. HOME MEDICATIONS: 1. [place] 20 mg q.h.s. 2. Zocor 40 mg q.h.s. 3. Nitrostat 0.4 sublingual q.5h p.r.n. 4. Humulin 70/30, 45-50 units subcu q.h.s. 5. Motrin 800 mg t.i.d. p.r.n. 6. Potassium 20 mEq p.o. b.i.d. 7. Lasix 40 mg a day. 8. Cardizem 70 mg p.o. t.i.d. 9. Detrol LA 4 mg a day. 10.Toprol-XL 75 mg b.i.d. 11.Aspirin 81 mg daily. 12.Insulin 70/30, 55 units in the morning. 13.Pamelor 100 mg a day. 14.Silvadene cream 1% topical daily. 15.Vitamin D3 1000 units p.o. daily. 16.Zoloft 25 mg p.o. daily. 17.Prilosec 40 mg p.o. daily. 18.Zestoretic 20/25, 1 tablet p.o. daily. 19.Neurontin 100 mg p.o. t.i.d. 20.Metformin 1000 mg b.i.d. 21.PreserVision 1 capsule p.o. daily. 22.Mycostatin topical b.i.d. 23.Pentoxifylline 500 mg t.i.d. ALLERGIES: To LEVAQUIN and MORPHINE. EXAMINATION: Temperature 96.5, pulse 72, respirations 16, blood pressure 120/68, pulse ox 96% on room air. GENERAL APPEARANCE: Well built, BMI 31.2. Lying in bed, tired-appearing. EYES: Pupils equal. Conjunctivae normal. HEENT: External nose and ears normal. Oral cavity normal. NECK: JVD not raised. Mass not palpable. RESPIRATORY: Effort normal. LUNGS: Fair entry. CARDIOVASCULAR: First and second sounds normal. No edema. ABDOMEN: Soft, nontender. Liver and spleen not palpable. LYMPHATIC: No lymph node palpable. PSYCHIATRY: Alert and oriented x3. Mood and affect normal. NEUROLOGICAL: Cranial nerves grossly intact. Decreased sensation in the right hand and the right hand is also weak distal to the rest. PULSES: Patient has got near absent pulses in both the feet. EXTREMITIES: The patient has got ulcer on the ball of the right big toe and also on the dorsum. Slight drainage on the dorsal aspect. Decreased sensation distally. INVESTIGATIONS: White count 7.7, hemoglobin 13.7. Potassium 4.2 BUN 27, creatinine 0.74. ASSESSMENT: 1. Acute flare up of a chronic wound on the right foot ball and also the dorsum being followed at the wound care center. Need to rule out underlying osteomyelitis, but there no fever, no white count. 2. Diabetes mellitus type 2, chronically on insulin, causing peripheral neuropathy. 3. Peripheral arterial disease. 4. Coronary artery disease. 5. Hyperlipidemia. 6. Essential hypertension. 7. Primary osteoarthritis. 8. Chronic urinary stress incontinence. 9. Essential hypertension. PLAN: Home medications are resumed, sliding insulin. Accu-Cheks will be followed. Dr. Oquendo and Dr. Cortez have been consulted. The patient has been put on IV Unasyn. Will order a bone scan to rule out any osteomyelitis. Because of the patient's neuropathic pain, will increase the patient's dose of Neurontin to 200 mg 3 times a day. Care was discussed with the patient. Questions were answered. MMODL / IJN: [id number] /
[2017-11-11 00:34] LABS: Glucose,Whole Blood 302 mg/dL (75-99)
[2017-11-11] MEDS: INSULIN NPH/REG INSULIN 70/30 300 UNIT/3 ML VIAL SQ SCH ×3 (00:35→22:15)
[2017-11-11] MEDS: AMPICILLIN-SULBACTAM 3 GM in SODIUM CHLORIDE 0.9% 100 ML IVPB SCH ×2 (02:10→10:18)
[2017-11-11] MEDS: SODIUM CHLORIDE 0.45% 1,000 ML IV SCH ×3 (05:35→23:26)
[2017-11-11] MEDS ORDERED: VANCOMYCIN 1,500 MG in SODIUM CHLORIDE 0.9% 250 ML IVPB SCH (06:00)
[2017-11-11] MEDS: DILTIAZEM ORAL 30 MG TAB PO SCH ×4 (06:14→22:14)
[2017-11-11 07:40] LABS: Glucose,Whole Blood 113 mg/dL (75-99)
[2017-11-11] MEDS: INSULIN ASPART 100 UNIT/ML 1 ML 10 ML VIAL SQ SCH ×3 (08:01→17:38)
[2017-11-11] MEDS: ASPIRIN 81 MG PO SCH (09:18)
[2017-11-11] MEDS: POTASSIUM CHLORIDE ER 20 MEQ TAB.ER PO SCH ×2 (09:18→22:15)
[2017-11-11] MEDS: FUROSEMIDE 40 MG TAB PO SCH (09:18)
[2017-11-11] MEDS: GABAPENTIN 100 MG CAP PO SCH ×3 (09:18→22:14)
[2017-11-11] MEDS: LISINOPRIL-HCTZ 20-25 MG 1 EACH TAB PO SCH (09:18)
[2017-11-11] MEDS: PANTOPRAZOLE 40 MG TABLET PO SCH (09:18)
[2017-11-11] MEDS: ENOXAPARIN 40 MG/0.4 ML SYRINGE SQ SCH (09:18)
[2017-11-11] MEDS: PENTOXIFYLLINE 400 MG TABLET.ER PO SCH ×3 (09:18→22:14)
[2017-11-11] MEDS: OXYBUTYNIN XL 5 MG TAB.ER.24 PO SCH (09:18)
[2017-11-11] MEDS: SERTRALINE 25 MG TAB PO SCH (09:18)
[2017-11-11] MEDS: METOPROLOL SUCCINATE (ER) 25 MG TAB.ER.24H PO SCH ×2 (09:19→22:14)
[2017-11-11] MEDS: NYSTATIN 100,000 UNIT/GM POWD 15 GM TOPICAL SCH ×2 (09:19→22:15)
[2017-11-11 10:00] VITALS: BMI 31.8
[2017-11-11 10:56] LABS: Basophils % (A) 0 %; Eosinophils # (A) 0.3 k/uL (0-0.7); Eosinophils % (A) 5 %; HCT 37.2 % (34.0-46.0); HGB 11.9 gm/dL (11.4-16.0); Lymphocytes # (A) 1.1 k/uL (1.0-4.8); Lymphocytes % (A) 18 %; MCH 28.5 pg (25.0-35.0); MCHC 32.1 g/dL (31.0-37.0); MCV 88.7 fL (80.0-100.0); Mean Platelet Volume 7.9; Monocytes # (A) 0.6 k/uL (0-1.0); Monocytes % (A) 10 %; Neutrophils % (A) 66 %; Platelet Count 149 k/uL (150-450); RBC 4.19 m/uL (3.80-5.40); RDW 13.3 % (11.5-15.5); WBC 6.1 k/uL (3.8-10.6)
[2017-11-11 11:21] LABS: ALT 28 U/L (9-52); AST 19 U/L (14-36); Albumin 2.8 g/dL (3.5-5.0); Alkaline Phosphatase 72 U/L (38-126); Anion Gap 9 mmol/L; Blood Urea Nitrogen 19 mg/dL (7-17); Calcium 8.1 mg/dL (8.4-10.2); Carbon Dioxide 26 mmol/L (22-30); Chloride 108 mmol/L (98-107); Glucose 131 mg/dL (74-99); Potassium 4.1 mmol/L (3.5-5.1); Sodium 143 mmol/L (137-145); Total Bilirubin 0.4 mg/dL (0.2-1.3); Total Protein 5.3 g/dL (6.3-8.2)
[2017-11-11 12:04] LABS: Glucose,Whole Blood 115 mg/dL (75-99)
[2017-11-11] MEDS: CHOLECALCIFEROL 1,000 UNIT TAB PO SCH (13:08)
[2017-11-11] MEDS: VIT A,C & E-LUTEIN-MINERALS 1 EACH TAB PO SCH (13:08)
[2017-11-11] MEDS: THIAMINE 100 MG TAB PO SCH (13:08)
[2017-11-11] MEDS: HYDROcodone/APAP 5-325MG 1 EACH TAB PO PRN ×2 (14:11→22:21)
--- NOTE | 2017-11-11 14:14 | NM ---
EXAMINATION TYPE: NM bone 3 phase DATE OF EXAM: 11/11/2017 COMPARISON: NONE HISTORY: Possible right first toe osteomyelitis Triple phase bone scintigraphy was performed following the injection of26.9 mCi Tc 99m MDP. Immediat e images and 5 hours post injection images acquired. FINDINGS: There is increased flow to the right foot. Increased soft tissue uptake noted. Increased uptake focally within the head of the first metatarsal. IMPRESSION: Findings compatible cellulitis and osteomyelitis of the right first digit.
--- NOTE | 2017-11-11 15:10 | CONS ---
CONSULTATION DATE OF CONSULTATION: 11/11/2017 REASON FOR CONSULTATION: Right foot wound and a question of osteomyelitis. HISTORY OF PRESENT ILLNESS: The patient is an 82-year-old female with a past medical history significant for a chronic nonhealing wound to the dorsal aspect of the right big toe that the patient has had for more than a year now. Patient did have a previous episode of wound infection with it and a culture that was positive for the Pseudomonas. The repeat did show enterococcus that was treated with IV antibiotic therapy. After resolution of her cellulitis, the patient continued to be [facility] Patient is now presenting to the [facility] ER on 11/10/2017 with the chief complaints of a right foot redness and drainage. Apparently, the patient has been having more swelling and redness of the right big toe. This started over the last few days prior to being admitted to the hospital. Pain described to be throbbing almost 10/10 and severe and she did have difficulty walking, bearing weight on that foot because of severe pain. The patient did mention she has significant drainage from it and radiation of the pain. The patient denies any high-grade fever, rigor or chills associated with it. The patient also had developed a superficial wound to the left foot on the big toe and the right lower leg area about a week now. No clear history of any trauma. With these symptoms, the patient was evaluated by the ER physician. The patient did have x-rays of the foot that did not show any evidence of an osteomyelitis of the right foot area. Patient did not have any high-grade fever, though white count was 7.7. Patient has been admitted to the hospital. She was started on Unasyn and vancomycin. Infectious Disease was consulted for further recommendation regarding antibiotic therapy. In the meantime, the patient also waiting for a bone scan noted by the admitting team. REVIEW OF SYSTEMS: CONSTITUTIONAL: Positive for weakness, no high-grade fever. EYES: No complaint. ENT: No complaint. RESPIRATORY: No complaint. CARDIOVASCULAR: No complaint. GENITOURINARY: No complaint. GASTROINTESTINAL: No complaint. MUSCULOSKELETAL: As per HPI. INTEGUMENTARY: As per HPI. PSYCHOLOGICAL: No complaint. ENDOCRINE: No complaint. NEUROLOGICAL: No complaint. PAST MEDICAL HISTORY: Significant for coronary artery disease, type 2 diabetes mellitus, hypertension, hyperlipidemia, atrial fibrillation, diverticulitis, colon cancer, pancreatitis, right foot infection secondary to Pseudomonas and enterococcus. PAST SURGERY HISTORY: Multiple debridement of the right foot wound, cardiac catheterization, cholecystectomy, bowel resection, AICD done, bilateral breast lumpectomy, right hand surgery. SOCIAL HISTORY: Denies any smoking, drinking, or drug use. He lives at the [facility] in [place]. FAMILY HISTORY: Positive for diabetes and coronary disease. ALLERGIES: To LEVOFLOXACIN and MORPHINE. MEDICATIONS: The patient is currently on vancomycin. She is on Unasyn, tramadol, saline, Silvadene cream, Zoloft, K-Dur, Protonix, Ditropan XL, Zofran, Mycostatin powder, Nitrostat, melatonin. Ativan, lactulose, Humulin, NovoLog, Motrin, Zestoretic, Neurontin, Lasix, Lovenox, Lipitor, aspirin, Tylenol and Beemer. PHYSICAL EXAMINATION: Blood pressure is 130/78 with a pulse of 68, temperature 96.9. She is 92% on room air. General description is an elderly female, up in the bed in no distress. No tachypnea or accessory muscle for respiration use. HEENT EXAMINATION: Shows no pallor or scleral icterus. Oral mucous membranes moist. No pharyngeal edema or thrush. NECK: Trachea central, no thyromegaly. LUNGS: Unlabored breathing, clear to auscultation anteriorly. No wheeze or crackle. HEART: S1, S2. Regular rate and rhythm. ABDOMEN: Soft, no tenderness. No organomegaly. EXTREMITIES: No edema of the feet. Examination of the right big toe, she did have a wound on the dorsal aspect with some swelling, minimal redness was noticed; however, significant tender to touch. No drainage. The patient also had a wound on the left lower leg and the left big toe area with no evidence of any surrounding redness or any slough tissue. Neurologically patient is awake, alert, oriented x3. Mood and affect normal. LABS: Hemoglobin is 11.9, white count of 6.1, BUN of 19, creatinine 0.59. Wound culture showing gram-negative bacilli. X-rays were negative for any bony changes. She did have a bone scan which is currently pending. Blood culture currently pending. DIAGNOSTIC IMPRESSION AND PLAN: Patient admitted to the hospital with right diabetic foot infection with Toñito's grade 3 in a patient who did have chronic nonhealing wound on the dorsal aspect of the right big toe with secondary cellulitis. No significant soft tissue was noticed. However, in view of the chronicity of this wound, underlying osteo will need to be ruled out. Wound culture now showing a gram-negative bacilli, in the previous episode of the Pseudomonas aeruginosa infection of the same site. PLAN: 1. We will discontinue the vancomycin to decrease risk of nephrotoxicity in the patient, currently wound culture not showing any gram-positive cocci. 2. We will discontinue the Unasyn with the wound culture showing gram-negative concern for possible Pseudomonas aeruginosa. 3. We will start the patient on Zosyn 3.375 g q.8 hours. 4. We will obtain a baseline sedimentation rate and CRP. 5. Will await for the bone scan to be finalized. 6. Depending upon the results of the bone scan, as well as the final culture, will determine her discharge antibiotic. Thank you for this consultation. Will follow this patient along with you. MMJOSIAHL / IJN: [id number] /
[2017-11-11] MEDS: PIPERACILLIN-TAZOBACTAM 3.375 GM in DEXTROSE/WATER 1 50ML.BAG IVPB SCH (16:03)
--- NOTE | 2017-11-11 16:32 | PN ---
PROGRESS NOTE DATE OF SERVICE: November 11, 2017. PRESENTING COMPLAINT: Right big toe ulcer. INTERVAL HISTORY: This is a patient presented with nonhealing ulcer of the right big toe with significant pain. No fever. I ordered a bone scan that has come back now positive showing for osteomyelitis. REVIEW OF SYSTEMS: Done for constitutional, cardiovascular, GI, pulmonary, relevant findings as above. CURRENT MEDICATIONS: Reviewed that include IV Zosyn. PHYSICAL EXAMINATION: On examination, afebrile, pulse 60, respiratory 20, blood pressure 130/78, pulse ox 92% on room air. General appearance: Sitting up in bed, awake. Eyes: Pupils equal. Conjunctivae normal. HEENT external appearance of nose and ears normal. Oral cavity normal. Neck JVD not raised. Mass not palpable. Respiratory effort: Lungs are clear. Cardiovascular: First and second sounds normal. No edema. ABDOMEN: Soft, nontender. Liver and spleen not palpable. Psychiatry: Alert and oriented times three. Mood and affect normal. Extremities: Ulcer on the right big toe both on the dorsum and on the plantar aspect with slight drainage. INVESTIGATIONS: White count 6.1, potassium 4.1, albumin 2.8, wound cultures growing gram-negative bacilli. Bone scan, possible osteomyelitis. ASSESSMENT: 1. Acute osteomyelitis of the head of the first metatarsal of the right foot with superficial wound culture growing gram-negative bacilli. 2. Diabetes mellitus type 2, chronically on insulin causing painful peripheral neuropathy. 3. Peripheral artery disease. 4. Coronary artery disease. 5. Hyperlipidemia. 6. Essential hypertension. 7. Primary osteoarthritis. 8. Chronic urinary stress incontinence. 9. Essential hypertension. PLAN: Keep the patient on IV Zosyn. The patient dose of Neurontin was doubled to 200 mg 3 times a day. Also [place] was added. Care was discussed with the patient. We will await further input from Infectious Disease, Dr. Cortez and antibiotics to be coordinated accordingly. MMODL / IJN: [id number] /
[2017-11-11 17:28] LABS: Glucose,Whole Blood 218 mg/dL (75-99)
[2017-11-11] MEDS: IBUPROFEN 800 MG TAB PO PRN (17:38)
[2017-11-11 21:36] LABS: Glucose,Whole Blood 264 mg/dL (75-99)
[2017-11-11] MEDS: ATORVASTATIN 20 MG TAB PO SCH (22:14)
[2017-11-12] MEDS: PIPERACILLIN-TAZOBACTAM 3.375 GM in DEXTROSE/WATER 1 50ML.BAG IVPB SCH ×3 (01:13→16:56)
[2017-11-12 07:05] LABS: Glucose,Whole Blood 75 mg/dL (75-99)
[2017-11-12] MEDS: INSULIN ASPART 100 UNIT/ML 1 ML 10 ML VIAL SQ SCH ×3 (08:07→17:52)
[2017-11-12] MEDS: ENOXAPARIN 40 MG/0.4 ML SYRINGE SQ SCH (08:12)
[2017-11-12] MEDS: GABAPENTIN 100 MG CAP PO SCH ×3 (08:13→21:55)
[2017-11-12] MEDS: HYDROcodone/APAP 5-325MG 1 EACH TAB PO PRN ×2 (08:13→17:53)
[2017-11-12] MEDS: OXYBUTYNIN XL 5 MG TAB.ER.24 PO SCH (08:14)
[2017-11-12] MEDS: POTASSIUM CHLORIDE ER 20 MEQ TAB.ER PO SCH ×2 (08:14→21:56)
[2017-11-12] MEDS: PANTOPRAZOLE 40 MG TABLET PO SCH (08:14)
[2017-11-12] MEDS: LISINOPRIL-HCTZ 20-25 MG 1 EACH TAB PO SCH (08:14)
[2017-11-12] MEDS: PENTOXIFYLLINE 400 MG TABLET.ER PO SCH ×3 (08:14→21:55)
[2017-11-12] MEDS: ASPIRIN 81 MG PO SCH (08:14)
[2017-11-12] MEDS: METOPROLOL SUCCINATE (ER) 25 MG TAB.ER.24H PO SCH ×2 (08:14→21:56)
[2017-11-12] MEDS: SERTRALINE 25 MG TAB PO SCH (08:14)
[2017-11-12] MEDS: DILTIAZEM ORAL 30 MG TAB PO SCH ×2 (08:14→16:57)
[2017-11-12] MEDS: FUROSEMIDE 40 MG TAB PO SCH (08:14)
--- NOTE | 2017-11-12 11:17 | CONS ---
CONSULTATION This is an 82-year-old female, she is well known to [facility]. She came to [facility] with history of redness of the right foot, big toe. Patient has an ulcer. She has [facility]. Patient had an angiogram in the past which showed severe infrapopliteal occlusive disease. We will review this angiogram again. She had a bone scan which showed cellulitis and osteo of the right big toe. Patient is on IV antibiotic. PHYSICAL EXAMINATION: Neck is supple, Trachea central. Chest is clear to auscultation. Abdomen is soft. Brachial and radial pulses were present. Femorals are 1+. Patient has a Doppler signal of the foot. Right foot has some redness and cellulitis with superficial ulcer on the dorsal aspect of the big toe. Mild tenderness noted. PLAN: Will continue with IV antibiotic and I will review the angiogram from the office and we will follow with you. MMODL / IJN: [id number] /
[2017-11-12] MEDS: SODIUM CHLORIDE 0.45% 1,000 ML IV SCH ×2 (11:38→18:15)
[2017-11-12 12:33] LABS: Glucose,Whole Blood 195 mg/dL (75-99)
[2017-11-12] MEDS: CHOLECALCIFEROL 1,000 UNIT TAB PO SCH (13:15)
[2017-11-12] MEDS: THIAMINE 100 MG TAB PO SCH (13:15)
[2017-11-12] MEDS: VIT A,C & E-LUTEIN-MINERALS 1 EACH TAB PO SCH (13:15)
[2017-11-12] MEDS: INSULIN NPH/REG INSULIN 70/30 300 UNIT/3 ML VIAL SQ SCH (13:15)
[2017-11-12] MEDS: IBUPROFEN 800 MG TAB PO PRN ×2 (13:16→21:59)
--- NOTE | 2017-11-12 15:54 | PN ---
PROGRESS NOTE DATE OF SERVICE: 11/12/2017 REASON FOR FOLLOWUP: Right diabetic foot infection with osteomyelitis. INTERVAL HISTORY: The patient is afebrile. Pain to the right leg to be slightly improved, controlled with pain medication. Still painful when she walks on it. Denies having any chest pain, shortness of breath. No cough. No abdominal pain, no diarrhea. PHYSICAL EXAMINATION: Blood pressure is 116/56 with a pulse of 58, temperature 97.2, she is 94% on room air. General description is an elderly female, lying in bed in no distress. RESPIRATORY SYSTEM: Unlabored breathing, clear to auscultation anteriorly. HEART: S1, S2. Regular rate and rhythm. ABDOMEN: Soft, no tenderness. Right foot still has swelling and redness especially at the first metatarsal head. No open wound on the dorsum. No drainage was noted. LABS: No new labs have been obtained today. Blood cultures from the wound with Pseudomonas aeruginosa. DIAGNOSTIC IMPRESSION AND PLAN: Patient with Pseudomonas aeruginosa right foot wound infection with secondary osteomyelitis, for which the patient will continue on Zosyn at this time. Await Vascular Surgery definitive consult for his surgical intervention; however, in view of the patient's allergies to LEVOFLOXACIN and oral option available, she will likely need a PICC line and outpatient antibiotic therapy. Duration will depend upon with the whether the patient has a course of amputation or no surgical intervention. MMODL / IJN: [id number] /
[2017-11-12] MEDS: NYSTATIN 100,000 UNIT/GM POWD 15 GM TOPICAL SCH ×2 (16:57→21:57)
[2017-11-12 17:35] LABS: Glucose,Whole Blood 97 mg/dL (75-99)
[2017-11-12 21:35] LABS: Glucose,Whole Blood 70 mg/dL (75-99)
[2017-11-12] MEDS: ATORVASTATIN 20 MG TAB PO SCH (21:56)
--- NOTE | 2017-11-12 23:21 | PN ---
PROGRESS NOTE DATE OF SERVICE: 11/12/2017 This 82-year-old woman who was admitted with possible acute osteomyelitis of the head of the 1st toe was admitted and is being closely monitored. Infectious Disease is evaluating the patient. No chest pain. No palpitations. No fever. EXAM: Alert and oriented x3. The pulse is 58, blood pressure 116/53, respirations 16, temperature 97.2, pulse ox 94% room air. HEENT: Conjunctivae normal. NECK: No jugular venous distention. CARDIOVASCULAR: S1, S2 muffled. RESPIRATORY: Breath sounds diminished in the bases. A few scattered rhonchi. No crackles. ABDOMEN: Soft, nontender. No mass palpable. LEGS: No edema. No swelling. Otherwise, right leg ulcer present in the left leg also. NERVOUS SYSTEM: No focal deficits. LABS: At this time show platelets 149. Other labs are noted. ASSESSMENT: 1. Acute osteomyelitis of the head of the 1st metatarsal of the right foot with a superficial wound and cellulitis growing Pseudomonas aeruginosa, which is poly sensitive. 2. Diabetes mellitus type 2, chronically on insulin, causing painful peripheral neuropathy. 3. Cellulitis of the left leg. 4. Item peripheral arterial disease. 5. Coronary artery disease. 6. Hyperlipidemia. 7. Essential hypertension with gait dysfunction. 8. Degenerative joint disease. 9. History of chronic urinary stress incontinence. RECOMMENDATIONS AND DISCUSSION: Recommend to continue current medical management and continue symptomatic treatment. Continue with the broad-spectrum IV antibiotics. Follow closely with Infectious Disease. I would also recommend the monitor closely with Infectious Disease and Vascular Surgery. Otherwise, I would also recommend PT/OT evaluation and [employer] to evaluate the home situation for possible ECF rehab. Apparently patient 8000 dollars last time further rehab. Will continue to monitor with Case Management as well as the rn social work. MMODL / IJN: [id number] / MTDD
[2017-11-12 23:49] LABS: Glucose,Whole Blood 145 mg/dL (75-99)
[2017-11-13] MEDS: INSULIN NPH/REG INSULIN 70/30 300 UNIT/3 ML VIAL SQ SCH ×3 (00:39→21:28)
[2017-11-13] MEDS: DILTIAZEM ORAL 30 MG TAB PO SCH ×4 (00:40→21:18)
[2017-11-13] MEDS: PIPERACILLIN-TAZOBACTAM 3.375 GM in DEXTROSE/WATER 1 50ML.BAG IVPB SCH ×3 (00:44→17:26)
[2017-11-13] MEDS: SODIUM CHLORIDE 0.45% 1,000 ML IV SCH ×2 (06:26→17:26)
[2017-11-13 07:50] LABS: Glucose,Whole Blood 95 mg/dL (75-99)
[2017-11-13 07:50] LABS: Glucose,Whole Blood 62 mg/dL (75-99)
[2017-11-13] MEDS: METOPROLOL SUCCINATE (ER) 25 MG TAB.ER.24H PO SCH ×2 (08:39→21:18)
[2017-11-13] MEDS: GABAPENTIN 100 MG CAP PO SCH ×3 (08:39→21:17)
[2017-11-13] MEDS: ENOXAPARIN 40 MG/0.4 ML SYRINGE SQ SCH (08:39)
[2017-11-13] MEDS: SERTRALINE 25 MG TAB PO SCH (08:40)
[2017-11-13] MEDS: LISINOPRIL-HCTZ 20-25 MG 1 EACH TAB PO SCH (08:40)
[2017-11-13] MEDS: FUROSEMIDE 40 MG TAB PO SCH (08:40)
[2017-11-13] MEDS: PENTOXIFYLLINE 400 MG TABLET.ER PO SCH ×3 (08:40→21:18)
[2017-11-13] MEDS: OXYBUTYNIN XL 5 MG TAB.ER.24 PO SCH (08:40)
[2017-11-13] MEDS: HYDROcodone/APAP 5-325MG 1 EACH TAB PO PRN ×2 (08:40→17:28)
[2017-11-13] MEDS: PANTOPRAZOLE 40 MG TABLET PO SCH (08:40)
[2017-11-13] MEDS: NYSTATIN 100,000 UNIT/GM POWD 15 GM TOPICAL SCH ×2 (08:41→21:19)
[2017-11-13] MEDS: POTASSIUM CHLORIDE ER 20 MEQ TAB.ER PO SCH ×2 (08:41→21:18)
[2017-11-13] MEDS: ASPIRIN 81 MG PO SCH (08:41)
[2017-11-13] MEDS: INSULIN ASPART 100 UNIT/ML 1 ML 10 ML VIAL SQ SCH ×3 (08:45→17:54)
[2017-11-13] MEDS: IBUPROFEN 800 MG TAB PO PRN ×2 (12:34→21:31)
[2017-11-13] MEDS: VIT A,C & E-LUTEIN-MINERALS 1 EACH TAB PO SCH (12:34)
[2017-11-13] MEDS: THIAMINE 100 MG TAB PO SCH (12:34)
[2017-11-13] MEDS: CHOLECALCIFEROL 1,000 UNIT TAB PO SCH (12:34)
[2017-11-13 12:55] LABS: Glucose,Whole Blood 240 mg/dL (75-99)
[2017-11-13 17:30] LABS: Glucose,Whole Blood 354 mg/dL (75-99)
--- NOTE | 2017-11-13 18:10 | PN ---
PROGRESS NOTE DATE OF SERVICE: 11/13/2017 This 82-year-old woman who was admitted with possible osteomyelitis of the right foot is being closely monitored. Dr. Oquendo is evaluating the patient at this time, and Dr. Cortez is also evaluating the patient for Infectious Disease point of view for possible PICC line and outpatient antibiotics also. No chest pain. No palpitations. No fever. PHYSICAL EXAM: Alert and oriented times three. The pulse is 97, blood pressure 140/26 respiration 20, temperature 98.2, pulse ox 98% room air. HEENT: Conjunctivae normal. Neck: No jugular venous distention. CARDIOVASCULAR: S1, S2. RESPIRATORY: Breath sounds diminished in the bases. No rhonchi and no crackles. ABDOMEN: Soft. Legs right foot abscess and cellulitis present. Otherwise left foot cellulitis also present. Central nervous system: No focal deficits. LABS: Platelets 149. Otherwise, CBC, BMP noted. Albumin is 2.9. ASSESSMENT: 1. Acute osteomyelitis of the head of the 1st metatarsal of the right foot with superficial wound cellulitis growing Pseudomonas aeruginosa which is polysensitive. 2. Diabetes type 2, chronically on insulin causing painful peripheral neuropathy. 3. Cellulitis of the left leg. 4. Peripheral artery disease. 5. Coronary artery disease. 6. Hyperlipidemia. 7. Essential hypertension with gait dysfunction. 8. Degenerative joint disease. 9. History of chronic urinary incontinence. DISCUSSION AND RECOMMENDATIONS: Recommend to continue current medications, management and continue with IV antibiotics. We will await input from Dr. Oquendo and as well as Dr. Cortez regarding the further plans for outpatient antibiotics. Otherwise, continue to monitor. Further recommendations to follow. Angiogram will be reviewed by Dr. Oqeundo. MMODL / IJN: [id number] /
[2017-11-13] MEDS: ATORVASTATIN 20 MG TAB PO SCH (21:18)
[2017-11-13 21:19] LABS: Glucose,Whole Blood 290 mg/dL (75-99)
--- NOTE | 2017-11-13 23:04 | PN ---
PROGRESS NOTE DATE OF SERVICE: 11/13/2017. REASON FOR FOLLOWUP: Right big toe chronic wound and osteomyelitis with Pseudomonas aeruginosa. INTERVAL HISTORY: The patient is afebrile. She is breathing comfortably. Pain to the right foot wound area has slightly improved. The patient denies having any chest pain, shortness of breath, cough, abdominal pain or diarrhea. PHYSICAL EXAMINATION: Blood pressure is 130/60, pulse of 99, temperature of 97.9. She is 94% on room air. GENERAL DESCRIPTION: An elderly female, lying in bed in no distress. RESPIRATORY SYSTEM: Unlabored breathing. Clear to auscultation anteriorly. HEART: Heart S1, S2. Regular rate and rhythm. ABDOMEN: Soft, no tenderness. Right big toe wound swelling slightly decreased. No drainage was noticed. LAB: Sedimentation rate was 23 with of 38.5. Wound culture with Pseudomonas aeruginosa. DIAGNOSTIC IMPRESSION AND PLAN: Patient with right big toe base of dorsum wound, chronic, with secondary osteomyelitis. The patient at this time will continue on Zosyn. Await possible debridement or amputation per vascular surgery, that will determine her discharge antibiotics. Family present at bedside. Their questions were answered. MMODL / IJN: [id number] /
[2017-11-14] MEDS: PIPERACILLIN-TAZOBACTAM 3.375 GM in DEXTROSE/WATER 1 50ML.BAG IVPB SCH ×3 (00:17→15:17)
[2017-11-14] MEDS: SODIUM CHLORIDE 0.45% 1,000 ML IV SCH ×3 (00:24→20:53)
[2017-11-14 07:56] LABS: Glucose,Whole Blood 95 mg/dL (75-99)
[2017-11-14] MEDS: INSULIN NPH/REG INSULIN 70/30 300 UNIT/3 ML VIAL SQ SCH ×2 (07:57→21:11)
[2017-11-14] MEDS: SERTRALINE 25 MG TAB PO SCH (07:57)
[2017-11-14] MEDS: ASPIRIN 81 MG PO SCH (07:58)
[2017-11-14] MEDS: OXYBUTYNIN XL 5 MG TAB.ER.24 PO SCH (07:58)
[2017-11-14] MEDS: GABAPENTIN 100 MG CAP PO SCH ×3 (07:58→20:51)
[2017-11-14] MEDS: DILTIAZEM ORAL 30 MG TAB PO SCH ×3 (07:58→20:51)
[2017-11-14] MEDS: LISINOPRIL-HCTZ 20-25 MG 1 EACH TAB PO SCH (07:58)
[2017-11-14] MEDS: ENOXAPARIN 40 MG/0.4 ML SYRINGE SQ SCH (07:58)
[2017-11-14] MEDS: FUROSEMIDE 40 MG TAB PO SCH (07:58)
[2017-11-14] MEDS: PENTOXIFYLLINE 400 MG TABLET.ER PO SCH ×3 (07:58→20:49)
[2017-11-14] MEDS: PANTOPRAZOLE 40 MG TABLET PO SCH (07:58)
[2017-11-14] MEDS: HYDROcodone/APAP 5-325MG 1 EACH TAB PO PRN ×2 (07:59→15:17)
[2017-11-14] MEDS: NYSTATIN 100,000 UNIT/GM POWD 15 GM TOPICAL SCH ×2 (08:00→20:53)
[2017-11-14] MEDS: POTASSIUM CHLORIDE ER 20 MEQ TAB.ER PO SCH ×2 (08:00→20:52)
[2017-11-14] MEDS: INSULIN ASPART 100 UNIT/ML 1 ML 10 ML VIAL SQ SCH ×3 (08:01→17:10)
[2017-11-14 09:03] LABS: Basophils % (A) 1 %; Eosinophils # (A) 0.3 k/uL (0-0.7); Eosinophils % (A) 5 %; HCT 39.6 % (34.0-46.0); HGB 12.5 gm/dL (11.4-16.0); Lymphocytes % (A) 15 %; MCH 28.5 pg (25.0-35.0); MCHC 31.5 g/dL (31.0-37.0); MCV 90.6 fL (80.0-100.0); Mean Platelet Volume 7.7; Monocytes # (A) 0.6 k/uL (0-1.0); Monocytes % (A) 8 %; Neutrophils # (A) 4.7 k/uL (1.3-7.7); Neutrophils % (A) 70 %; Platelet Count 203 k/uL (150-450); RBC 4.37 m/uL (3.80-5.40); WBC 6.7 k/uL (3.8-10.6)
[2017-11-14 09:16] LABS: Anion Gap 9 mmol/L; Blood Urea Nitrogen 18 mg/dL (7-17); Calcium 9.1 mg/dL (8.4-10.2); Carbon Dioxide 33 mmol/L (22-30); Chloride 99 mmol/L (98-107); Glucose 156 mg/dL (74-99); Potassium 4.2 mmol/L (3.5-5.1); Sodium 141 mmol/L (137-145)
[2017-11-14] MEDS: METOPROLOL SUCCINATE (ER) 25 MG TAB.ER.24H PO SCH ×2 (09:18→20:49)
[2017-11-14] MEDS: CHOLECALCIFEROL 1,000 UNIT TAB PO SCH (09:19)
[2017-11-14] MEDS: VIT A,C & E-LUTEIN-MINERALS 1 EACH TAB PO SCH (09:19)
[2017-11-14] MEDS: THIAMINE 100 MG TAB PO SCH (09:19)
[2017-11-14 12:22] LABS: Glucose,Whole Blood 143 mg/dL (75-99)
[2017-11-14] MEDS: IBUPROFEN 800 MG TAB PO PRN ×2 (13:59→21:05)
[2017-11-14 17:12] LABS: Glucose,Whole Blood 80 mg/dL (75-99)
--- NOTE | 2017-11-14 18:46 | P.PN ---
Subjective Progress Note Date: 11/14/17 Progress note being dictated for Dr. Lowery. Interval history: This is an 82-year-old female admitted with right foot cellulitis and multiple other medical issues. Dr. Oquendo reviewing angiogram performed at his office with further recommendations upon removing right great toe versus BKA pending. T-max 99.1. Denies chest pain, palpitations or increasing shortness of breath. Objective - Vital Signs Vital signs: Vital Signs Temp 99.1 F 11/14/17 15:00 Pulse 64 11/14/17 15:00 Resp 20 11/14/17 15:00 BP 114/75 11/14/17 15:00 Pulse Ox 92 L 11/14/17 15:00 Intake & Output 11/13/17 11/14/17 11/14/17 18:59 06:59 18:59 Intake Total 800 925 520 Balance 800 925 520 Intake: Intake, IV Titration 400 Amount Piperacillin-Tazobactam 3 50 .375 gm In Dextrose/Water 1 50ml.bag @ 12.5 mls/hr IVPB Q8HR KEVEN Rx#: [id number] Sodium Chloride 0.45% 1, 350 000 ml @ 100 mls/hr IV . Q10H KEVEN Rx#:[id number] Oral 400 925 520 Other: Voiding Method Toilet Toilet # Voids 4 3 2 # Bowel Movements 0 - Exam PHYSICAL EXAM: VITAL SIGNS: As above GENERAL: Sitting up in bed, no acute distress HEENT: Conjunctivae normal. eyes normal. NECK: No JVD. No thyroid enlargement. No LNs CARDIOVASCULAR: S1, S2 muffled. No murmur RESPIRATION: Breath sounds diminished in the bases. No rhonchi or crackles. No bronchial breathing. ABDOMEN: Soft, nontender . No guarding. no masses palpable.Bowel sounds heard. LEGS: Right great toe wound decreased swelling, no drainage, Right foot abscess cellulitis, left foot cellulitis PSYCHIATRY: Alert and oriented -3, mood and affect normal. NERVOUS SYSTEM: Cranial N 2-12 grossly normal. Moves all 4 limbs. Diffuse weakness No focal deficits. Microbiology 11/10/17 14:20 Blood Blood Culture - Preliminary No Growth after 96 hours 11/10/17 14:20 Foot - Right Gram Stain - Final 11/10/17 14:20 Foot - Right Wound Culture - Final Pseudomonas aeruginosa - Labs CBC & Chem 7: 03/05/18 08:32 11/14/17 08:32 Labs: Abnormal Lab Results - Last 24 Hours (Table) 11/13/17 11/14/17 11/14/17 Range/Units 20:42 08:32 12:10 Carbon Dioxide 33 H (22-30) mmol/L BUN 18 H (7-17) mg/dL Glucose 156 H (74-99) mg/dL POC Glucose (mg/dL) 290 H 143 H (75-99) mg/dL Microbiology - Last 24 Hours (Table) 11/10/17 14:20 Blood Culture - Preliminary Blood No Growth after 96 hours Assessment and Plan Assessment: 1.Acute osteomyelitis of the head of the first metatarsal of the right foot with superficial wound cellulitis growing pseudomonas aeruginosa, poly-sensitive 2. Diabetes type 2, chronically on insulin causing painful peripheral neuropathy 3. Cellulitis of the left leg 4. PAD 5. CAD 6. Hyperlipidemia 7. Essential hypertension with gait dysfunction 8. degenerative joint disease 9. Chronic urinary incontinence Plan: Continue on current medication regime ,monitoring and symptomatic treatment. IV antibiotics as per infectious disease. As mentioned above further recommendations from vascular surgery pending, regarding right great toe amputations versus BKA, versus debridement. Prognosis guarded. The impression and plan of care has been dictated as directed. : I performed a history and examination of this patient, discussed the same with the dictator. I agree with the dictator's note ,documented as a scribe. Any additional findings or plans will be noted.
[2017-11-14] MEDS: ATORVASTATIN 20 MG TAB PO SCH (20:50)
[2017-11-14 21:41] LABS: Glucose,Whole Blood 169 mg/dL (75-99)
--- NOTE | 2017-11-14 23:32 | PN ---
PROGRESS NOTE DATE OF SERVICE: 11/14/2017. REASON FOR FOLLOW UP: Right big toe wound infection with osteomyelitis with Pseudomonas aeruginosa. INTERVAL HISTORY: The patient is afebrile. Pain to the right foot wound area is slightly decreased. Some swelling. is slightly decreased. No drainage. Denies any chest pain, shortness of breath or cough. No abdominal pain, no diarrhea. EXAMINATION: Blood pressure is 114/75 with a pulse of 64, temperature of 99.1, she is 92% on room air. GENERAL DESCRIPTION: An elderly female lying in bed in no distress. RESPIRATORY SYSTEM: Unlabored breathing. Clear to auscultation anteriorly. HEART: S1, S2. Regular rate and rhythm. ABDOMEN: Soft, no tenderness. EXTREMITIES: Right foot wound on the dorsum of the foot at the base of the first metatarsal head, minimal soft tissue surrounding swelling. No redness. LABS: Hemoglobin is 12.5, white count 6.7, BUN of 18, creatinine 0.79. DIAGNOSTIC IMPRESSION AND PLAN: Patient with right foot dorsal wound at the base of the index finger with underlying osteomyelitis. The antibiotics will be adjusted to [place] 2 g every 8 hours. The PICC line for outpatient IV antibiotic therapy. Continue supportive care. MMODL / IJN: [id number] /
[2017-11-15] MEDS: PIPERACILLIN-TAZOBACTAM 3.375 GM in DEXTROSE/WATER 1 50ML.BAG IVPB SCH ×2 (01:07→07:26)
[2017-11-15] MEDS: SODIUM CHLORIDE 0.45% 1,000 ML IV SCH ×2 (05:21→07:27)
[2017-11-15] MEDS: PENTOXIFYLLINE 400 MG TABLET.ER PO SCH ×3 (07:25→21:37)
[2017-11-15] MEDS: FUROSEMIDE 40 MG TAB PO SCH (07:25)
[2017-11-15] MEDS: HYDROcodone/APAP 5-325MG 1 EACH TAB PO PRN ×2 (07:25→15:26)
[2017-11-15] MEDS: ASPIRIN 81 MG PO SCH (07:25)
[2017-11-15] MEDS: POTASSIUM CHLORIDE ER 20 MEQ TAB.ER PO SCH ×2 (07:25→21:37)
[2017-11-15] MEDS: SERTRALINE 25 MG TAB PO SCH (07:25)
[2017-11-15] MEDS: DILTIAZEM ORAL 30 MG TAB PO SCH ×3 (07:25→21:37)
[2017-11-15] MEDS: GABAPENTIN 100 MG CAP PO SCH ×3 (07:25→21:37)
[2017-11-15] MEDS: PANTOPRAZOLE 40 MG TABLET PO SCH (07:25)
[2017-11-15] MEDS: METOPROLOL SUCCINATE (ER) 25 MG TAB.ER.24H PO SCH ×2 (07:25→21:37)
[2017-11-15] MEDS: OXYBUTYNIN XL 5 MG TAB.ER.24 PO SCH (07:25)
[2017-11-15] MEDS: LISINOPRIL-HCTZ 20-25 MG 1 EACH TAB PO SCH (07:25)
[2017-11-15] MEDS: ENOXAPARIN 40 MG/0.4 ML SYRINGE SQ SCH (07:26)
[2017-11-15] MEDS: NYSTATIN 100,000 UNIT/GM POWD 15 GM TOPICAL SCH ×2 (07:27→21:40)
[2017-11-15] MEDS: INSULIN ASPART 100 UNIT/ML 1 ML 10 ML VIAL SQ SCH ×3 (07:37→17:29)
[2017-11-15] MEDS: INSULIN NPH/REG INSULIN 70/30 300 UNIT/3 ML VIAL SQ SCH ×2 (07:37→23:14)
[2017-11-15 07:40] LABS: Glucose,Whole Blood 339 mg/dL (75-99)
[2017-11-15 07:51] VITALS: RESP 20
[2017-11-15 08:06] LABS: Basophils % (A) 1 %; Eosinophils # (A) 0.3 k/uL (0-0.7); Eosinophils % (A) 4 %; HCT 38.3 % (34.0-46.0); HGB 12.5 gm/dL (11.4-16.0); Lymphocytes # (A) 0.7 k/uL (1.0-4.8); Lymphocytes % (A) 10 %; MCH 28.3 pg (25.0-35.0); MCHC 32.7 g/dL (31.0-37.0); MCV 86.7 fL (80.0-100.0); Mean Platelet Volume 7.6; Monocytes # (A) 0.7 k/uL (0-1.0); Monocytes % (A) 10 %; Neutrophils % (A) 74 %; Platelet Count 212 k/uL (150-450); RBC 4.42 m/uL (3.80-5.40); RDW 12.9 % (11.5-15.5); WBC 6.8 k/uL (3.8-10.6)
[2017-11-15 08:36] LABS: Anion Gap 13 mmol/L; Blood Urea Nitrogen 19 mg/dL (7-17); Calcium 8.9 mg/dL (8.4-10.2); Carbon Dioxide 29 mmol/L (22-30); Chloride 96 mmol/L (98-107); Glucose 324 mg/dL (74-99); Potassium 4.4 mmol/L (3.5-5.1); Sodium 138 mmol/L (137-145)
[2017-11-15] MEDS: IBUPROFEN 800 MG TAB PO PRN ×2 (10:52→17:31)
[2017-11-15] MEDS: VIT A,C & E-LUTEIN-MINERALS 1 EACH TAB PO SCH (10:53)
[2017-11-15] MEDS: THIAMINE 100 MG TAB PO SCH (10:53)
[2017-11-15] MEDS: CHOLECALCIFEROL 1,000 UNIT TAB PO SCH (10:53)
[2017-11-15 12:48] LABS: Glucose,Whole Blood 315 mg/dL (75-99)
[2017-11-15 17:29] LABS: Glucose,Whole Blood 235 mg/dL (75-99)
--- NOTE | 2017-11-15 19:01 | P.PN ---
Subjective Progress Note Date: 11/15/17 Progress note being dictated for Dr. Lowery. Interval history: This is an 82-year-old female admitted with right foot cellulitis and multiple other medical issues. Dr. Oquendo reviewing angiogram performed at his office with further recommendations upon removing right great toe versus BKA pending. T-max 99.1. Denies chest pain, palpitations or increasing shortness of breath. 11/15/17 scheduled for PICC line tomorrow for 6 weeks of outpatient IV antibiotics. No debridement or surgery at this time as per vascular surgery. Afebrile, T-max 99.1. Blood sugars higher today, patient did not receive at bedtime insulin last night. Denies chest pain, palpitations. Objective - Vital Signs Vital signs: Vital Signs Temp 98.2 F 11/15/17 15:00 Pulse 63 11/15/17 15:00 Resp 20 11/15/17 15:00 BP 110/64 11/15/17 15:00 Pulse Ox 92 L 11/15/17 15:00 Intake & Output 11/14/17 11/15/17 11/15/17 18:59 06:59 18:59 Intake Total 520 475 Output Total 500 Balance 520 -25 Intake: Oral 520 475 Output: Urine 500 Other: Voiding Method Toilet Toilet # Voids 2 2 2 # Bowel Movements 0 - Exam PHYSICAL EXAM: VITAL SIGNS: As above GENERAL: Sitting up in bed, no acute distress HEENT: Conjunctivae normal. eyes normal. NECK: No JVD. No thyroid enlargement. No LNs CARDIOVASCULAR: S1, S2 muffled. No murmur RESPIRATION: Breath sounds diminished in the bases. No rhonchi or crackles. ABDOMEN: Soft, nontender . No guarding. no masses palpable.Positive Bowel sounds. LEGS: Right great toe wound decreased swelling, no drainage, Right foot abscess cellulitis, left foot cellulitis PSYCHIATRY: Alert and oriented -3, mood and affect normal. NERVOUS SYSTEM: Cranial N 2-12 grossly normal. Moves all 4 limbs. Diffuse weakness No focal deficits. Microbiology 11/10/17 14:20 Blood Blood Culture - Preliminary No Growth after 120 hours 11/10/17 14:20 Foot - Right Gram Stain - Final 11/10/17 14:20 Foot - Right Wound Culture - Final Pseudomonas aeruginosa - Labs CBC & Chem 7: 11/15/17 07:26 11/15/17 07:26 Labs: Abnormal Lab Results - Last 24 Hours (Table) 11/14/17 11/15/17 11/15/17 Range/Units 21:07 07:26 07:26 Lymphocytes # 0.7 L (1.0-4.8) k/uL Chloride 96 L (98-107) mmol/L BUN 19 H (7-17) mg/dL Glucose 324 H (74-99) mg/dL POC Glucose (mg/dL) 169 H (75-99) mg/dL 11/15/17 11/15/17 11/15/17 Range/Units 07:34 11:49 17:24 Lymphocytes # (1.0-4.8) k/uL Chloride (98-107) mmol/L BUN (7-17) mg/dL Glucose (74-99) mg/dL POC Glucose (mg/dL) 339 H 315 H 235 H (75-99) mg/dL Microbiology - Last 24 Hours (Table) 11/10/17 14:20 Blood Culture - Preliminary Blood No Growth after 120 hours Assessment and Plan Assessment: 1.Acute osteomyelitis of the head of the first metatarsal of the right foot with superficial wound cellulitis growing pseudomonas aeruginosa, poly-sensitive 2. Diabetes type 2, chronically on insulin causing painful peripheral neuropathy 3. Cellulitis of the left leg 4. PAD 5. CAD 6. Hyperlipidemia 7. Essential hypertension with gait dysfunction 8. degenerative joint disease 9. Chronic urinary incontinence Plan: Continue on current medication regime ,monitoring and symptomatic treatment. Maintain IV antibiotics as per infectious disease. Scheduled for PICC line placement tomorrow. Hold Lovenox. Discharge planning in progress for [facility] subacute rehab tomorrow. Further recommendations to follow. The impression and plan of care has been dictated as directed. : I performed a history and examination of this patient, discussed the same with the dictator. I agree with the dictator's note ,documented as a scribe. Any additional findings or plans will be noted.
[2017-11-15 20:54] LABS: Glucose,Whole Blood 210 mg/dL (75-99)
[2017-11-15] MEDS: ATORVASTATIN 20 MG TAB PO SCH (21:37)
--- NOTE | 2017-11-15 21:39 | PN ---
PROGRESS NOTE DATE OF SERVICE: 11/15/2017 REASON FOR FOLLOWUP: Right foot osteomyelitis MRSA acute with associated diabetes mellitus. INTERVAL HISTORY: The patient is afebrile. She is breathing comfortably. Denies having any chest pain, cough or abdominal pain. Pain to the right foot is currently controlled. She is scheduled to get a PICC line; however, that could not be done because she got the Lovenox this morning. PHYSICAL EXAMINATION: Blood pressure 110/64 with a pulse of 63, temperature 98.2. She is 92% on room air. General description is an elderly female lying in bed in no distress. RESPIRATORY SYSTEM: Unlabored breathing. Clear to auscultation anteriorly. HEART: S1, S2. Regular rate and rhythm. ABDOMEN: Soft. No tenderness. Right foot swelling and redness slightly decreased. No drainage. LABS: Hemoglobin 12.5, white count 6.8. BUN of 19, creatinine 0.89. DIAGNOSTIC IMPRESSION AND PLAN: Patient with Pseudomonas aeruginosa, right foot, acute osteomyelitis with associated diabetes mellitus. Antibiotic adjusted to Fortaz 2 grams q.12. Continue for a total of 6 weeks with weekly monitoring of CBC, BMP and sed rate. Once the PICC line is in the patient should go to the custodial from ID standpoint. Continue with supportive care. MMODL / IJN: [id number] /
[2017-11-16] MEDS: HYDROcodone/APAP 5-325MG 1 EACH TAB PO PRN ×2 (05:48→12:46)
[2017-11-16] MEDS: SODIUM CHLORIDE 0.45% 1,000 ML IV SCH ×2 (05:49→12:42)
[2017-11-16 06:38] VITALS: BP 145/73; PULSE 85; TEMP 97.3
[2017-11-16 07:49] LABS: Glucose,Whole Blood 96 mg/dL (75-99)
[2017-11-16] MEDS: PENTOXIFYLLINE 400 MG TABLET.ER PO SCH (08:09)
[2017-11-16] MEDS: IBUPROFEN 800 MG TAB PO PRN (08:10)
[2017-11-16] MEDS: PANTOPRAZOLE 40 MG TABLET PO SCH (08:10)
[2017-11-16] MEDS: METOPROLOL SUCCINATE (ER) 25 MG TAB.ER.24H PO SCH (08:10)
[2017-11-16] MEDS: OXYBUTYNIN XL 5 MG TAB.ER.24 PO SCH (08:10)
[2017-11-16] MEDS: GABAPENTIN 100 MG CAP PO SCH (08:10)
[2017-11-16] MEDS: ASPIRIN 81 MG PO SCH (08:10)
[2017-11-16] MEDS: POTASSIUM CHLORIDE ER 20 MEQ TAB.ER PO SCH (08:10)
[2017-11-16] MEDS: SERTRALINE 25 MG TAB PO SCH (08:10)
[2017-11-16] MEDS: DILTIAZEM ORAL 30 MG TAB PO SCH (08:10)
[2017-11-16] MEDS: LISINOPRIL-HCTZ 20-25 MG 1 EACH TAB PO SCH (08:10)
[2017-11-16] MEDS: INSULIN ASPART 100 UNIT/ML 1 ML 10 ML VIAL SQ SCH ×2 (08:11→12:38)
[2017-11-16] MEDS: FUROSEMIDE 40 MG TAB PO SCH (08:11)
[2017-11-16] MEDS: NYSTATIN 100,000 UNIT/GM POWD 15 GM TOPICAL SCH (08:12)
[2017-11-16] MEDS: INSULIN NPH/REG INSULIN 70/30 300 UNIT/3 ML VIAL SQ SCH (08:12)
[2017-11-16] MEDS ORDERED: LIDOCAINE 2% INJ 20 MG/ML SQ ONE (10:18)
--- NOTE | 2017-11-16 10:45 | P.DS ---
Providers Date of admission: 11/11/17 08:31 Expected date of discharge: 11/16/17 Attending physician: Gabino Lowery Consults: 11/10/17 15:55 Consult Physician Routine Consulting Provider: Edgard Oquendo Consult Reason/Comments: DM ulcer Do you want consulting provider notified?: Yes 11/10/17 21:23 Consult Physician Routine Consulting Provider: Alejandro Cortez Consult Reason/Comments: foot infection Do you want consulting provider notified?: Yes Primary care physician: Ulysses Rose [facility] Course: Final Diagnoses: 1.Acute osteomyelitis of the head of the first metatarsal of the right foot with superficial wound cellulitis growing pseudomonas aeruginosa, poly-sensitive 2. Diabetes type 2, chronically on insulin causing painful peripheral neuropathy 3. Cellulitis of the left leg 4. PAD 5. CAD 6. Hyperlipidemia 7. Essential hypertension with gait dysfunction 8. degenerative joint disease 9. Chronic urinary incontinence Hospital course:This is an 82-year-old female admitted with right foot cellulitis and multiple other medical issues. Evaluated by vascular surgery, Dr. Oquendo and infectious disease. Maintained on IV antibiotics. No debridement or surgery at this time as per vascular surgery. PICC line placed this morning for 6 weeks of outpatient IV antibiotics as recommended per ID. Significant clinical improvement. Cleared by all consults for discharge. Patient is being discharged in a stable condition with guarded prognosis to [facility] subacute rehab. Physical Exam:VSS, alert and oriented 3, no acute distress. CV: S1, S2 muffled. RESP: Bilateral bases diminished. ABD: Soft nontender positive bowel sounds. LEGS: Right great toe wound decreased swelling, no drainage, Right foot abscess cellulitis, left foot cellulitis.NEURO: No focal deficits. Microbiology 11/10/17 14:20 Blood Blood Culture - Preliminary No Growth after 120 hours 11/10/17 14:20 Foot - Right Gram Stain - Final 11/10/17 14:20 Foot - Right Wound Culture - Final Pseudomonas aeruginosa The impression and plan of care has been dictated as directed. : I performed a history and examination of this patient, discussed the same with the dictator. I agree with the dictator's note ,documented as a scribe. Any additional findings or plans will be noted. Time taken: 35 minutes Patient Condition at Discharge: Stable Plan - Discharge Summary Discharge Rx Participant: Yes New Discharge Prescriptions: New Ceftazidime [Fortaz] 2 gm IV Q8HR #126 vial Acetaminophen Tab [Tylenol] 650 mg PO Q6HR PRN tab PRN Reason: Mild Pain Or Fever > 100.5 Gabapentin [Neurontin] 200 mg PO TID cap INSULIN LISPRO (HumaLOG) [humaLOG] 0 unit SQ ACHS #1 vial Lactulose [Cephulac] 20 gm PO DAILY PRN ml PRN Reason: Constipation traMADol HCl [Ultram] 50 mg PO Q6H PRN #20 tab PRN Reason: Moderate Pain Continue Cholecalciferol [Vitamin D3] 1,000 unit PO DAILY Sertraline HCl [Zoloft] 25 mg PO DAILY Nitroglycerin Sl Tabs [Nitrostat] 0.4 mg SUBLINGUAL Q5M PRN PRN Reason: Chest Pain Simvastatin [Zocor] 40 mg PO HS Omeprazole [PriLOSEC] 40 mg PO DAILY Pentoxifylline 400 mg PO TID Diltiazem Oral [Cardizem*] 30 mg PO TID Furosemide [Lasix] 40 mg PO DAILY Metoprolol Succinate (ER) [Toprol XL] 75 mg PO BID Aspirin EC [Ecotrin Low Dose] 81 mg PO DAILY Trospium Chloride [Sanctura] 20 mg PO HS Tolterodine Tartrate [Detrol LA] 4 mg PO DAILY Insulin NPH/Reg Insulin 70/30 [humuLIN 70/30 VIAL] 45 - 50 unit SQ HS Insulin NPH/Reg Insulin 70/30 [humuLIN 70/30 VIAL] 55 unit SQ DAILY Thiamine [Vitamin B-1] 100 mg PO DAILY SILVER sulfADIAZINE Cream [Silvadene 1% Cream] 1 applic TOPICAL DAILY Lisinopril-Hctz 20-25 mg [Zestoretic 20-25] 1 tab PO DAILY metFORMIN HCL 1,000 mg PO BID Vit C/E/Zn/Coppr/Lutein/Zeaxan [Preservision Areds 2 Softgel] 1 cap PO DAILY Nystatin 100,000 Unit/gm Powd [Mycostatin Powder] 1 applic TOPICAL BID Potassium Chloride [K-Tab ER] 20 meq PO BID Hydrocodone/Acetaminophen [Hydrocodon-Acetaminophen 5-325] 1 each PO Q8HR # 15 tablet Changed Ibuprofen [Motrin] 400 mg PO TID PRN #0 PRN Reason: Pain Discontinued Gabapentin [Neurontin] 100 mg PO TID Discharge Medication List Cholecalciferol [Vitamin D3] 1,000 unit PO DAILY 12/13/16 [History] Nitroglycerin Sl Tabs [Nitrostat] 0.4 mg SUBLINGUAL Q5M PRN 12/13/16 [History] Omeprazole [PriLOSEC] 40 mg PO DAILY 12/13/16 [History] Pentoxifylline 400 mg PO TID 12/13/16 [History] Sertraline HCl [Zoloft] 25 mg PO DAILY 12/13/16 [History] Simvastatin [Zocor] 40 mg PO HS 12/13/16 [History] Diltiazem Oral [Cardizem*] 30 mg PO TID 03/21/17 [History] Furosemide [Lasix] 40 mg PO DAILY 03/21/17 [History] Metoprolol Succinate (ER) [Toprol XL] 75 mg PO BID 03/21/17 [History] Aspirin EC [Ecotrin Low Dose] 81 mg PO DAILY 04/18/17 [History] Trospium Chloride [Sanctura] 20 mg PO HS 05/23/17 [History] Insulin NPH/Reg Insulin 70/30 [humuLIN 70/30 VIAL] 45 - 50 unit SQ HS 11/10/17 [ History] Insulin NPH/Reg Insulin 70/30 [humuLIN 70/30 VIAL] 55 unit SQ DAILY 11/10/17 [ History] Lisinopril-Hctz 20-25 mg [Zestoretic 20-25] 1 tab PO DAILY 11/10/17 [History] Nystatin 100,000 Unit/gm Powd [Mycostatin Powder] 1 applic TOPICAL BID 11/10/17 [History] Potassium Chloride [K-Tab ER] 20 meq PO BID 11/10/17 [History] SILVER sulfADIAZINE Cream [Silvadene 1% Cream] 1 applic TOPICAL DAILY 11/10/17 [ History] Thiamine [Vitamin B-1] 100 mg PO DAILY 11/10/17 [History] Tolterodine Tartrate [Detrol LA] 4 mg PO DAILY 11/10/17 [History] Vit C/E/Zn/Coppr/Lutein/Zeaxan [Preservision Areds 2 Softgel] 1 cap PO DAILY 09/29 [History] metFORMIN HCL 1,000 mg PO BID 11/10/17 [History] Acetaminophen Tab [Tylenol] 650 mg PO Q6HR PRN tab 11/16/17 [Rx] Ceftazidime [Fortaz] 2 gm IV Q8HR #126 vial 11/16/17 [Rx] Gabapentin [Neurontin] 200 mg PO TID cap 11/16/17 [Rx] Hydrocodone/Acetaminophen [Hydrocodon-Acetaminophen 5-325] 1 each PO Q8HR #15 tablet 11/16/17 [Rx] INSULIN LISPRO (HumaLOG) [humaLOG] 0 unit SQ ACHS #1 vial 11/16/17 [Rx] Ibuprofen [Motrin] 400 mg PO TID PRN #0 11/16/17 [Rx] Lactulose [Cephulac] 20 gm PO DAILY PRN ml 11/16/17 [Rx] traMADol HCl [Ultram] 50 mg PO Q6H PRN #20 tab 11/16/17 [Rx] Follow up Appointment(s)/Referral(s): Farrukh Kebede MD [STAFF PHYSICIAN] - 3 Days (at [facility]) [facility], [NON-STAFF] - Edgard Oquendo MD [STAFF PHYSICIAN] - As Needed (4-6 weeks) Alejandro Cortez MD [STAFF PHYSICIAN] - 1 Week Ulysses Rose DO [Primary Care Provider] - 1 Week (After discharge from subacute rehab) Ambulatory/Diagnostic Orders: Basic Metabolic Panel [LAB.AMB] Time Frame: 6 Weeks, Location: Determined By Patient C Reactive Protein [LAB.AMB] Location: Determined By Patient Complete Blood Count w/diff [LAB.AMB] Location: Determined By Patient Erythrocyte Sedimentation Rate [LAB.AMB] Location: Determined By Patient Patient Instructions/Handouts: Cellulitis (DC), Type 2 Diabetes in Adults (DC) Activity/Diet/Wound Care/Special Instructions: PICC: Maintain dressing changes and flushes per facility protocol Diet: Consistent carb, Accu-Cheks before meals and at bedtime with sliding scale as ordered Activity: As tolerated with assistance Wound care: Right great toe, cleanse with normal saline, use dry aquacel ag gauze to wound bed, cover with 4x4, secure with kerlix and paper tape change daily. Left medial billy, keep c/d/i with nonadherant gauze follow infectious disease protocol and RX for lab draws to monitor for [facility] IV[facility]
[2017-11-16 11:22] LABS: Basophils % (A) 1 %; Eosinophils # (A) 0.4 k/uL (0-0.7); Eosinophils % (A) 6 %; HCT 39.1 % (34.0-46.0); HGB 13.5 gm/dL (11.4-16.0); Lymphocytes # (A) 1.2 k/uL (1.0-4.8); Lymphocytes % (A) 19 %; MCH 29.5 pg (25.0-35.0); MCHC 34.6 g/dL (31.0-37.0); MCV 85.4 fL (80.0-100.0); Mean Platelet Volume 7.2; Monocytes # (A) 0.6 k/uL (0-1.0); Monocytes % (A) 10 %; Neutrophils # (A) 4.2 k/uL (1.3-7.7); Neutrophils % (A) 64 %; Platelet Count 242 k/uL (150-450); RBC 4.57 m/uL (3.80-5.40); RDW 12.7 % (11.5-15.5); WBC 6.5 k/uL (3.8-10.6)
[2017-11-16 11:23] LABS: Calcium 9.9 mg/dL (8.4-10.2)
[2017-11-16] MEDS: THIAMINE 100 MG TAB PO SCH (12:41)
[2017-11-16] MEDS: VIT A,C & E-LUTEIN-MINERALS 1 EACH TAB PO SCH (12:41)
[2017-11-16] MEDS: CHOLECALCIFEROL 1,000 UNIT TAB PO SCH (12:41)
[2017-11-16 12:47] LABS: Glucose,Whole Blood 89 mg/dL (75-99)
--- NOTE | 2017-11-16 14:10 | PN ---
PROGRESS NOTE DATE OF SERVICE: 11/16/2017. REASON FOR FOLLOWUP: Right foot osteomyelitis. INTERVAL HISTORY: The patient is afebrile. She is complaining of some pain in the right foot, wound area. Patient denies having any chest pain, shortness of breath or cough. No abdominal pain and no diarrhea. PHYSICAL EXAMINATION: Blood pressure 145/73 with a pulse of 85, temperature is 97.3, she is 94% on room air. General description is an elderly female up in the chair, in no distress. RESPIRATORY SYSTEM: Unlabored breathing, clear to auscultation. HEART: S1, S2. Regular rate and rhythm. Evaluation of the right foot, wound on the dorsal aspect at the base of the first toe with no slough tissue, some drainage was noticed. LABS: Hemoglobin is 13.5, white count 6.5, BUN of 22, creatinine 0.77. DIAGNOSTIC IMPRESSION AND PLAN: Patient with right foot osteomyelitis at the base of the big toe. Recommend local wound care with Aquacel Silver dressing dry, discontinue the . Antibiotic form of Fortaz 2 g q.8 for total of 6 weeks with weekly monitoring of CBC, BMP and sed rate in outpatient followup. Scripts were written for the patient and given to the case briefer. MMODL / IJN: [id number] /
== END 2017-11-16 14:58 | DRG 638 ==
LOC: EC 13:30 → 4MS4W 15:53 → OBSVTOIN 11-11 08:31
PROVIDERS: ADMIT Hospitalist; ATTEND Hospitalist
PROC: 02HV33Z Insertion of Infusion Device into Superior Vena Cava, Percutaneous Approach (ICD-10-PCS; principal; 2017-11-16 09:45)
DX: E11.69 Type 2 diabetes mellitus with other specified complication (principal); M86.179 Other acute osteomyelitis, unspecified ankle and foot; E11.42 Type 2 diabetes mellitus with diabetic polyneuropathy; E11.621 Type 2 diabetes mellitus with foot ulcer; E11.51 Type 2 diabetes mellitus with diabetic peripheral angiopathy without gangrene; I48.91 Unspecified atrial fibrillation; L97.519 Non-pressure chronic ulcer of other part of right foot with unspecified severity; B95.62 Methicillin resistant Staphylococcus aureus infection as the cause of diseases classified elsewhere; B96.5 Pseudomonas (aeruginosa) (mallei) (pseudomallei) as the cause of diseases classified elsewhere; E78.5 Hyperlipidemia, unspecified; H91.90 Unspecified hearing loss, unspecified ear; I10 Essential (primary) hypertension; I25.10 Atherosclerotic heart disease of native coronary artery without angina pectoris; M19.91 Primary osteoarthritis, unspecified site; L03.032 Cellulitis of left toe; N39.3 Stress incontinence (female) (male); Z79.4 Long term (current) use of insulin; Z79.82 Long term (current) use of aspirin; Z79.899 Other long term (current) drug therapy; Z82.49 Family history of ischemic heart disease and other diseases of the circulatory system; Z83.3 Family history of diabetes mellitus; Z85.038 Personal history of other malignant neoplasm of large intestine; Z85.41 Personal history of malignant neoplasm of cervix uteri; Z87.891 Personal history of nicotine dependence; Z90.710 Acquired absence of both cervix and uterus; Z88.1 Allergy status to other antibiotic agents; Z88.5 Allergy status to narcotic agent
CPT/HCPCS: 36415; 36569; 76937; 77001; 78315; 80048; 80053; 85025; 85652; 86140; 87040; 87070; 87077; 87186; 87205; 96361; 96365; 99284

== ENCOUNTER 2017-12-08 16:53 | Emergency (ER) | payer MEDICARE, BC, OTHER ==
[2017-12-08 16:59] VITALS: TEMP 98.1
[2017-12-08 17:03] LABS: Glucose,Whole Blood 176 mg/dL (75-99)
[2017-12-08] MEDS ORDERED: SODIUM CHLORIDE 0.9% 500 ML IV STA (17:20)
[2017-12-08 17:53] LABS: Basophils % (A) 0 %; Eosinophils # (A) 0.2 k/uL (0-0.7); Eosinophils % (A) 3 %; HCT 43.5 % (34.0-46.0); HGB 14.4 gm/dL (11.4-16.0); Lymphocytes # (A) 0.9 k/uL (1.0-4.8); Lymphocytes % (A) 10 %; MCHC 33.1 g/dL (31.0-37.0); MCV 84.7 fL (80.0-100.0); Mean Platelet Volume 7.5; Monocytes # (A) 0.6 k/uL (0-1.0); Monocytes % (A) 7 %; Neutrophils # (A) 7.6 k/uL (1.3-7.7); Neutrophils % (A) 80 %; Platelet Count 196 k/uL (150-450); RBC 5.14 m/uL (3.80-5.40); RDW 13.3 % (11.5-15.5); WBC 9.5 k/uL (3.8-10.6)
[2017-12-08 17:54] LABS: Appearance,Urine Clear (Clear); Bilirubin,Urine Negative (Negative); Blood,Urine Negative (Negative); Color,Urine Light Yellow; Glucose,Urine (UA) Negative (Negative); Ketones,Urine Negative (Negative); Leukocyte Esterase,Urine Negative (Negative); Nitrite,Urine Negative (Negative); Protein,Urine Trace (Negative); Urobilinogen,Urine <2.0 mg/dL (<2.0)
[2017-12-08 18:02] LABS: Albumin 4.1 g/dL (3.5-5.0); Magnesium 1.2 mg/dL (1.6-2.3); Potassium 4.8 mmol/L (3.5-5.1); Total Bilirubin 0.4 mg/dL (0.2-1.3); Total Protein 7.1 g/dL (6.3-8.2)
[2017-12-08 18:14] LABS: Creatine Kinase 27 U/L (30-135)
[2017-12-08] MEDS ORDERED: MAGNESIUM OXIDE 400 MG TAB PO STA (18:19)
--- NOTE | 2017-12-08 18:23 | ED ---
General Adult HPI - General Chief complaint: Recheck/Abnormal Lab/Rx Stated complaint: Altered Mental/Hypoglycemia Time Seen by Provider: 12/08/17 16:57 Source: EMS, RN notes reviewed, old records reviewed Mode of arrival: EMS Limitations: no limitations - History of Present Illness Initial comments: This is an 80-year-old female to the ER for evaluation. This patient presents for evaluation regards to altered mental state. Family concerned patient received wrong antibiotic today. Patient herself at this time is no complaints. Patient has history of diabetes, EMS found patient to have low blood sugar on arrival. Sugar was improved with IV dextrose, patient is somewhat this point feels much improved, she has no current complaints. - Related Data Home Medications Medication Instructions Recorded Confirmed Cholecalciferol [Vitamin D3] 1,000 unit PO DAILY@0600 12/13/16 12/08/17 Nitroglycerin Sl Tabs [Nitrostat] 0.4 mg SUBLINGUAL Q5M PRN 12/13/16 12/08/17 Pentoxifylline 400 mg PO TID@,12/13/16 12/08/17 Sertraline HCl [Zoloft] 25 mg PO DAILY 12/13/16 12/08/17 Diltiazem Oral [Cardizem*] 30 mg PO TID@,03/21/17 12/08/17 Furosemide [Lasix] 40 mg PO DAILY 03/21/17 12/08/17 Aspirin EC [Ecotrin Low Dose] 81 mg PO DAILY 04/18/17 12/08/17 Trospium Chloride [Sanctura] 20 mg PO HS 05/23/17 12/08/17 Insulin NPH/Reg Insulin 70/30 30 unit SQ 11/10/17 12/08/17 [humuLIN 70/30 VIAL] Insulin NPH/Reg Insulin 70/30 35 unit SQ DAILY@0911/10/17 12/08/17 [humuLIN 70/30 VIAL] Lisinopril-Hctz 20-25 mg 1 tab PO DAILY 11/10/17 12/08/17 [Zestoretic 20-25] Potassium Chloride [K-Tab ER] 20 meq PO BID@0900,1700 11/10/17 12/08/17 Thiamine [Vitamin B-1] 100 mg PO DAILY@0600 11/10/17 12/08/17 Tolterodine Tartrate [Detrol LA] 4 mg PO DAILY 11/10/17 12/08/17 Vit C/E/Zn/Coppr/Lutein/Zeaxan 1 cap PO DAILY@0600 11/10/17 12/08/17 [Preservision Areds 2 Softgel] metFORMIN HCL 1,000 mg PO BID@0900,1700 11/10/17 12/08/17 Amino Acids/Protein Hydrolys 30 ml PO DAILY 12/08/17 12/08/17 [Pro-Stat Supplement] Atorvastatin [Lipitor] 20 mg PO HS 12/08/17 12/08/17 Ceftazidime [Fortaz] 2 gm IV TID@,,12/08/17 12/08/17 Esomeprazole Magnesium [NexIUM] 40 mg PO DAILY 12/08/17 12/08/17 Gabapentin [Neurontin] 200 mg PO TID@09,,12/08/17 12/08/17 Hydrocodone/Acetaminophen 1 tab PO TID@,,12/08/17 12/08/17 [Hydrocodon-Acetaminophen 5-325] INSULIN LISPRO (HumaLOG) [humaLOG] See Protocol SQ ACHS 12/08/17 12/08/17 Ibuprofen [Motrin] 400 mg PO TID PRN 12/08/17 12/08/17 Omeprazole [PriLOSEC] 20 mg PO DAILY@0600 12/08/17 12/08/17 Sennosides [Senna] 8.6 mg PO HS 12/08/17 12/08/17 traMADol HCl [Ultram] 50 mg PO Q6H PRN 12/08/17 12/08/17 Previous Rx's Medication Instructions Recorded Acetaminophen Tab [Tylenol] 650 mg PO Q6HR PRN tab 11/16/17 Lactulose [Cephulac] 20 gm PO DAILY PRN ml 11/16/17 Allergies Allergy/AdvReac Type Severity Reaction Status Date / Time levofloxacin [From Levaquin] Allergy Mild Rash/Hives Verified 12/08/17 18:48 morphine Allergy Rapid Verified 12/08/17 18:48 Heart Rate Review of Systems ROS Statement: Those systems with pertinent positive or pertinent negative responses have been documented in the HPI. ROS Other: All systems not noted in ROS Statement are negative. Past Medical History Past Medical History: Atrial Fibrillation, Coronary Artery Disease (CAD), Cancer , Diabetes Mellitus, Hearing Disorder / Deafness, Hyperlipidemia, Hypertension, Osteoarthritis (OA) Additional Past Medical History / Comment(s): diverticultis, rt arm fx, cervical cancer, pancreatitis, right foot infection, gall stones and removal, FALL/fx coccyx 08-29-17, CONSTIPATION, PAD, RT FOOT WOUND HAS BEEN GOING TO THE [facility] ON MONDAYS, PAST [place]STONES History of Any Multi-Drug Resistant Organisms: None Reported Date of last positivie culture/infection: None MDRO Source:: None Past Surgical History: AICD, Bowel Resection, Cholecystectomy, Heart Catheterization, Hysterectomy, Orthopedic Surgery Additional Past Surgical History / Comment(s): Internal defibulator 09-15-17, LT ROTATOR CUFF X2, BUNIONECTOMY JACQUELINE,, JACQUELINE BREAST LUMPECTOMIES-BOTH NEG,, X2 ERCP, RT HAND SX PINS PLACED-BUT SINCE REMOVED, CATARACTS. Past Anesthesia/Blood Transfusion Reactions: No Reported Reaction Type of Cardiac Device: AICD Device Placement Date:: 09-15-17 Past Psychological History: No Psychological Hx Reported Smoking Status: Former smoker Past Alcohol Use History: None Reported Past Drug Use History: None Reported - Past Family History Mother Family Medical History: Coronary Artery Disease (CAD), Diabetes Mellitus Additional Family Medical History / Comment(s): HEART DISEASE Father Family Medical History: Coronary Artery Disease (CAD), Diabetes Mellitus General Exam Limitations: no limitations General appearance: alert, in no apparent distress Head exam: Present: atraumatic, normocephalic, normal inspection Eye exam: Present: normal appearance, PERRL, EOMI. Absent: scleral icterus, conjunctival injection, periorbital swelling ENT exam: Present: normal exam, mucous membranes moist Neck exam: Present: normal inspection. Absent: tenderness, meningismus, lymphadenopathy Respiratory exam: Present: normal lung sounds bilaterally. Absent: respiratory distress, wheezes, rales, rhonchi, stridor Cardiovascular Exam: Present: normal rhythm, irregular rhythm, normal heart sounds. Absent: systolic murmur, diastolic murmur, rubs, gallop, clicks GI/Abdominal exam: Present: soft, normal bowel sounds. Absent: distended, tenderness, guarding, rebound, rigid Extremities exam: Present: normal inspection, full ROM, normal capillary refill. Absent: tenderness, pedal edema, joint swelling, calf tenderness Back exam: Present: normal inspection Neurological exam: Present: alert, oriented X3, CN II-XII intact Psychiatric exam: Present: normal affect, normal mood Skin exam: Present: warm, dry, intact, normal color. Absent: rash Course Vital Signs 12/08/17 16:55 Temperature 98.1 F Pulse Rate 86 Respiratory 20 Rate Blood Pressure 133/87 O2 Sat by Pulse 95 Oximetry - Reevaluation(s) Reevaluation #1: 12/08/17 18:20 medical record and transfer reviewed Reevaluation #2: 12/08/17 18:21 Patient remains awake alert throughout ER stay. EKG Findings - EKG Comments: EKG Findings:: EKG shows A. fib rate of 85, QRS 88, QTC 497 Medical Decision Making - Medical Decision Making 82 female the ER for evaluation, patient has low blood sugar, patient will be discharged home - Lab Data Result diagrams: 12/08/17 17:35 12/08/17 17:35 Lab Results 12/08/17 12/08/17 12/08/17 Range/Units 17:02 17:35 17:35 WBC 9.5 (3.8-10.6) k/uL RBC 5.14 (3.80-5.40) m/uL Hgb 14.4 (11.4-16.0) gm/dL Hct 43.5 (34.0-46.0) % MCV 84.7 (80.0-100.0) fL MCH 28.0 (25.0-35.0) pg MCHC 33.1 (31.0-37.0) g/dL RDW 13.3 (11.5-15.5) % Plt Count 196 (150-450) k/uL Neutrophils % 80 % Lymphocytes % 10 % Monocytes % 7 % Eosinophils % 3 % Basophils % 0 % Neutrophils # 7.6 (1.3-7.7) k/uL Lymphocytes # 0.9 L (1.0-4.8) k/uL Monocytes # 0.6 (0-1.0) k/uL Eosinophils # 0.2 (0-0.7) k/uL Basophils # 0.0 (0-0.2) k/uL Sodium (137-145) mmol/L Potassium (3.5-5.1) mmol/L Chloride (98-107) mmol/L Carbon Dioxide (22-30) mmol/L Anion Gap mmol/L BUN (7-17) mg/dL Creatinine (0.52-1.04) mg/dL Est GFR (CKD-EPI)AfAm (>60 ml/min/1.73 sqM) Est GFR (CKD-EPI)NonAf (>60 ml/min/1.73 sqM) Glucose (74-99) mg/dL POC Glucose (mg/dL) 176 H (75-99) mg/dL POC Glu Staff Consultant ID GabeitSima segura Calcium (8.4-10.2) mg/dL Phosphorus (2.5-4.5) mg/dL Magnesium (1.6-2.3) mg/dL Total Bilirubin (0.2-1.3) mg/dL AST (14-36) U/L ALT (9-52) U/L Alkaline Phosphatase (38-126) U/L Total Creatine Kinase 27 L (30-135) U/L CK-MB (CK-2) 1.1 (0.0-2.4) ng/mL CK-MB (CK-2) Rel Index 4.1 Troponin I <0.012 (0.000-0.034) ng/mL Total Protein (6.3-8.2) g/dL Albumin (3.5-5.0) g/dL Urine Color Urine Appearance (Clear) Urine pH (5.0-8.0) Ur Specific [place] (1.001-1.035) Urine Protein (Negative) Urine Glucose (UA) (Negative) Urine Ketones (Negative) Urine Blood (Negative) Urine Nitrite (Negative) Urine Bilirubin (Negative) Urine Urobilinogen (<2.0) mg/dL Ur Leukocyte Esterase (Negative) 12/08/17 12/08/17 Range/Units 17:35 17:35 WBC (3.8-10.6) k/uL RBC (3.80-5.40) m/uL Hgb (11.4-16.0) gm/dL Hct (34.0-46.0) % MCV (80.0-100.0) fL MCH (25.0-35.0) pg MCHC (31.0-37.0) g/dL RDW (11.5-15.5) % Plt Count (150-450) k/uL Neutrophils % % Lymphocytes % % Monocytes % % Eosinophils % % Basophils % % Neutrophils # (1.3-7.7) k/uL Lymphocytes # (1.0-4.8) k/uL Monocytes # (0-1.0) k/uL Eosinophils # (0-0.7) k/uL Basophils # (0-0.2) k/uL Sodium 140 (137-145) mmol/L Potassium 4.8 (3.5-5.1) mmol/L Chloride 96 L (98-107) mmol/L Carbon Dioxide 29 (22-30) mmol/L Anion Gap 15 mmol/L BUN 33 H (7-17) mg/dL Creatinine 0.92 (0.52-1.04) mg/dL Est GFR (CKD-EPI)AfAm 67 (>60 ml/min/1.73 sqM) Est GFR (CKD-EPI)NonAf 58 (>60 ml/min/1.73 sqM) Glucose 109 H (74-99) mg/dL POC Glucose (mg/dL) (75-99) mg/dL POC Glu Staff Consultant ID Calcium 10.0 (8.4-10.2) mg/dL Phosphorus 4.0 (2.5-4.5) mg/dL Magnesium 1.2 L (1.6-2.3) mg/dL Total Bilirubin 0.4 (0.2-1.3) mg/dL AST 16 (14-36) U/L ALT 16 (9-52) U/L Alkaline Phosphatase 83 (38-126) U/L Total Creatine Kinase (30-135) U/L CK-MB (CK-2) (0.0-2.4) ng/mL CK-MB (CK-2) Rel Index Troponin I (0.000-0.034) ng/mL Total Protein 7.1 (6.3-8.2) g/dL Albumin 4.1 (3.5-5.0) g/dL Urine Color Light Yellow Urine Appearance Clear (Clear) Urine pH 5.0 (5.0-8.0) Ur Specific [place] 1.010 (1.001-1.035) Urine Protein Trace H (Negative) Urine Glucose (UA) Negative (Negative) Urine Ketones Negative (Negative) Urine Blood Negative (Negative) Urine Nitrite Negative (Negative) Urine Bilirubin Negative (Negative) Urine Urobilinogen <2.0 (<2.0) mg/dL Ur Leukocyte Esterase Negative (Negative) Disposition Clinical Impression: Hypoglycemia Disposition: HOME SELF-CARE Condition: Good Instructions: Hypoglycemia in a Person with Diabetes (ED) Referrals: Farrukh Kebede MD [Primary Care Provider] - 1-2 days
[2017-12-08 18:26] LABS: Creatine Kinase MB 1.1 ng/mL (0.0-2.4); Troponin I <0.012 ng/mL (0.000-0.034)
[2017-12-08 19:19] VITALS: BP 130/65; PULSE 68; RESP 19
[2017-12-08] MEDS ORDERED: HYDROcodone/APAP 5-325MG 1 EACH TAB PO STA (19:40)
== END 2017-12-08 19:58 | disposition home or self-care (01) ==
LOC: EC 16:53
DX: E11.649 Type 2 diabetes mellitus with hypoglycemia without coma (principal); I48.91 Unspecified atrial fibrillation; I25.10 Atherosclerotic heart disease of native coronary artery without angina pectoris; E78.5 Hyperlipidemia, unspecified; I10 Essential (primary) hypertension; Z95.5 Presence of coronary angioplasty implant and graft; Z95.810 Presence of automatic (implantable) cardiac defibrillator; Z88.1 Allergy status to other antibiotic agents; Z88.5 Allergy status to narcotic agent; Z79.4 Long term (current) use of insulin; Z79.82 Long term (current) use of aspirin; Z79.84 Long term (current) use of oral hypoglycemic drugs; Z79.899 Other long term (current) drug therapy; Z87.891 Personal history of nicotine dependence
CPT/HCPCS: 36415; 80053; 81003; 82550; 82553; 83735; 84100; 84484; 85025; 87086; 93005; 99285

== ENCOUNTER 2018-03-20 14:56 | Inpatient (IN) | payer MEDICARE, BC ==
[2018-03-20 16:48] LABS: Basophils # (A) 0.1 k/uL (0-0.2); Basophils % (A) 1 %; Eosinophils # (A) 0.2 k/uL (0-0.7); Eosinophils % (A) 2 %; HCT 43.6 % (34.0-46.0); HGB 14.8 gm/dL (11.4-16.0); Lymphocytes # (A) 2.1 k/uL (1.0-4.8); Lymphocytes % (A) 25 %; MCV 85.4 fL (80.0-100.0); Mean Platelet Volume 7.1; Monocytes # (A) 0.6 k/uL (0-1.0); Monocytes % (A) 7 %; Neutrophils # (A) 5.2 k/uL (1.3-7.7); Neutrophils % (A) 64 %; Platelet Count 185 k/uL (150-450); RBC 5.11 m/uL (3.80-5.40); RDW 15.3 % (11.5-15.5); WBC 8.2 k/uL (3.8-10.6)
[2018-03-20 16:58] LABS: Albumin 4.2 g/dL (3.5-5.0); Calcium 9.5 mg/dL (8.4-10.2); Potassium 4.8 mmol/L (3.5-5.1); Total Bilirubin 0.5 mg/dL (0.2-1.3); Total Protein 7.2 g/dL (6.3-8.2)
[2018-03-20] MEDS ORDERED: VANCOMYCIN IV PER PHARMACY 1 EACH MISC MISCELLANE PRN (20:21)
[2018-03-20] MEDS ORDERED: cefTRIAXone IN SWFI 1,000 MG/10 ML SYRINGE IVP STA (20:21)
[2018-03-20] MEDS ORDERED: VANCOMYCIN 1,500 MG in SODIUM CHLORIDE 0.9% 250 ML IVPB STA (20:24)
--- NOTE | 2018-03-20 20:25 | ED ---
General Adult HPI - General Chief complaint: Wound/Laceration Stated complaint: Dr Callaway Toe wound Time Seen by Provider: 03/20/18 19:56 Source: patient, RN notes reviewed, old records reviewed Mode of arrival: wheelchair Limitations: no limitations - History of Present Illness Initial comments: 82-year-old female with history of peripheral vascular disease and diabetes presents for evaluation of nonhealing wound on the dorsal surface of the right great toe. Patient was sent by her vascular surgeon from the wound care center for admission and IV antibiotics. Patient has had recurrent infection in this toe. Over the past one week she has been on oral antibiotics and at the wound clinic today she had increased purulence and erythema. Patient denies fever or chills. Denies pain in this foot. She has history of osteomyelitis. She has been in rehab on multiple occasions for for IV antibiotics for this nonhealing wound. - Related Data Home Medications Medication Instructions Recorded Confirmed Cholecalciferol [Vitamin D3] 1,000 unit PO DAILY@0600 12/13/16 03/20/18 Pentoxifylline 400 mg PO TID@12/13/16 03/20/18 Sertraline HCl [Zoloft] 25 mg PO DAILY 12/13/16 03/20/18 Diltiazem Oral [Cardizem*] 30 mg PO TID@,03/21/17 03/20/18 Furosemide [Lasix] 40 mg PO DAILY 03/21/17 03/20/18 Insulin NPH/Reg Insulin 70/30 30 unit SQ DAILY@0900 11/10/17 03/20/18 [humuLIN 70/30 VIAL] Lisinopril-Hctz 20-25 mg 1 tab PO DAILY 11/10/17 03/20/18 [Zestoretic 20-25] Potassium Chloride [K-Tab ER] 20 meq PO BID@0900,1700 11/10/17 03/20/18 Vit C/E/Zn/Coppr/Lutein/Zeaxan 1 cap PO DAILY@0600 11/10/17 03/20/18 [Preservision Areds 2 Softgel] metFORMIN HCL 1,000 mg PO BID@0900,1700 11/10/17 03/20/18 Gabapentin [Neurontin] 200 mg PO TID@,12/08/17 03/20/18 Omeprazole [PriLOSEC] 20 mg PO DAILY@0600 12/08/17 03/20/18 Metoprolol Succinate [Toprol XL] 75 mg PO BID 12/12/17 03/20/18 Cephalexin [Keflex] 1 cap PO TID 03/13/18 03/20/18 Previous Rx's Medication Instructions Recorded Lactulose [Cephulac] 20 gm PO DAILY PRN ml 11/16/17 Allergies Allergy/AdvReac Type Severity Reaction Status Date / Time levofloxacin [From Levaquin] Allergy Mild Rash/Hives Verified 03/20/18 20:03 morphine Allergy Rapid Verified 03/20/18 20:03 Heart Rate Review of Systems ROS Statement: Those systems with pertinent positive or pertinent negative responses have been documented in the HPI. ROS Other: All systems not noted in ROS Statement are negative. Past Medical History Past Medical History: Atrial Fibrillation, Coronary Artery Disease (CAD), Cancer , Diabetes Mellitus, Hearing Disorder / Deafness, Hyperlipidemia, Hypertension, Osteoarthritis (OA) Additional Past Medical History / Comment(s): diverticultis, rt arm fx, cervical cancer, pancreatitis, right foot infection, gall stones and removal, FALL/fx coccyx 08-29-17, CONSTIPATION, PAD, RT FOOT WOUND HAS BEEN GOING TO THE [facility] ON MONDAYS, PAST [place] History of Any Multi-Drug Resistant Organisms: None Reported Date of last positivie culture/infection: None MDRO Source:: None Past Surgical History: AICD, Bowel Resection, Cholecystectomy, Heart Catheterization, Hysterectomy, Orthopedic Surgery Additional Past Surgical History / Comment(s): Internal defibulator 09-15-17, LT ROTATOR CUFF X2, BUNIONECTOMY JACQUELINE,, JACQUELINE BREAST LUMPECTOMIES-BOTH NEG,, X2 ERCP, RT HAND SX PINS PLACED-BUT SINCE REMOVED, CATARACTS. Past Anesthesia/Blood Transfusion Reactions: No Reported Reaction Type of Cardiac Device: AICD Device Placement Date:: 09-15-17 Past Psychological History: No Psychological Hx Reported Smoking Status: Former smoker Past Alcohol Use History: None Reported Past Drug Use History: None Reported - Past Family History Mother Family Medical History: No Reported History Additional Family Medical History / Comment(s): HEART DISEASE Father Family Medical History: Coronary Artery Disease (CAD), Diabetes Mellitus General Exam Limitations: no limitations General appearance: alert, in no apparent distress Head exam: Present: atraumatic, normocephalic Eye exam: Present: normal appearance, PERRL ENT exam: Present: normal exam Neck exam: Present: normal inspection. Absent: tenderness, meningismus Respiratory exam: Present: normal lung sounds bilaterally. Absent: respiratory distress, wheezes Cardiovascular Exam: Present: regular rate, normal rhythm GI/Abdominal exam: Present: soft. Absent: distended, tenderness Extremities exam: Present: other (Erythema and purulent drainage from dorsal surface of the right great toe. There is surrounding erythema. Foot is equally warm compared to the left. There is no palpable pulse.) Neurological exam: Present: alert, oriented X3, CN II-XII intact. Absent: motor sensory deficit Psychiatric exam: Present: normal affect, normal mood Skin exam: Present: warm, dry Course Vital Signs 03/20/18 03/20/18 16:20 20:46 Temperature 98.5 F Pulse Rate 60 82 Respiratory 18 18 Rate Blood Pressure 136/65 157/89 O2 Sat by Pulse 98 97 Oximetry Medical Decision Making - Medical Decision Making Previous microbiology reviewed, patient has had pseudomonal infections in this toe in the past. She was started on cefepime and vancomycin. Laboratory studies are unremarkable, blood cultures pending. X-ray shows concern for joint space involvement and osteomyelitis as well as septic arthritis. Vascular and infectious disease will be placed on consult. - Lab Data Result diagrams: 03/20/18 16:36 03/20/18 16:36 Lab Results 03/20/18 03/20/18 03/20/18 Range/Units 16:36 16:36 16:36 WBC 8.2 (3.8-10.6) k/uL RBC 5.11 (3.80-5.40) m/uL Hgb 14.8 (11.4-16.0) gm/dL Hct 43.6 (34.0-46.0) % MCV 85.4 (80.0-100.0) fL MCH 29.0 (25.0-35.0) pg MCHC 34.0 (31.0-37.0) g/dL RDW 15.3 (11.5-15.5) % Plt Count 185 (150-450) k/uL Neutrophils % 64 % Lymphocytes % 25 % Monocytes % 7 % Eosinophils % 2 % Basophils % 1 % Neutrophils # 5.2 (1.3-7.7) k/uL Lymphocytes # 2.1 (1.0-4.8) k/uL Monocytes # 0.6 (0-1.0) k/uL Eosinophils # 0.2 (0-0.7) k/uL Basophils # 0.1 (0-0.2) k/uL Sodium 141 (137-145) mmol/L Potassium 4.8 (3.5-5.1) mmol/L Chloride 98 (98-107) mmol/L Carbon Dioxide 27 (22-30) mmol/L Anion Gap 16 mmol/L BUN 21 H (7-17) mg/dL Creatinine 0.80 (0.52-1.04) mg/dL Est GFR (CKD-EPI)AfAm 80 (>60 ml/min/1.73 sqM) Est GFR (CKD-EPI)NonAf 69 (>60 ml/min/1.73 sqM) Glucose 104 H (74-99) mg/dL Plasma Lactic Acid Lawrence 2.0 (0.7-2.0) mmol/L Calcium 9.5 (8.4-10.2) mg/dL Total Bilirubin 0.5 (0.2-1.3) mg/dL AST 31 (14-36) U/L ALT 36 (9-52) U/L Alkaline Phosphatase 68 (38-126) U/L Total Protein 7.2 (6.3-8.2) g/dL Albumin 4.2 (3.5-5.0) g/dL Disposition Clinical Impression: Failure of outpatient treatment, Osteomyelitis Disposition: ADMITTED IP TO THIS [facility] Condition: Stable Is patient prescribed a controlled substance at d/c from ED?: No Referrals: Farrukh Kebede MD [STAFF PHYSICIAN] - 1-2 days Decision to Admit Reason: Admit from EC Decision Date: 03/20/18 Decision Time: 21:14
--- NOTE | 2018-03-20 20:56 | XR ---
EXAMINATION TYPE: XR foot complete RT DATE OF EXAM: 03/20/2018 COMPARISON: 11/10/2017 HISTORY: Pain TECHNIQUE: 3 views FINDINGS: There is narrowing and spurring at the first MP joint. There is some osteopenia and erosion as well. There is evidence of old healed fracture second and fifth distal metatarsals. IMPRESSION: Compared to the last exam of 11/10/2017 there is some destructive changes in the first MP j oint with mild subluxation and significant obliteration of the joint space. This is suggestive of sep tic arthritis.
[2018-03-20] MEDS ORDERED: CEFEPIME 2 GM in SODIUM CHLORIDE 0.9% 50 ML IVPB STA (21:09)
[2018-03-20] MEDS ORDERED: NALOXONE 0.4 MG/ML 1 ML VIAL IV PRN (21:10)
[2018-03-20 21:46] LABS: Glucose,Whole Blood 78 mg/dL (75-99)
[2018-03-20] MEDS ORDERED: LACTULOSE 20 GM/30 ML CUP PO PRN (22:15)
[2018-03-20] MEDS ORDERED: NAPROXEN 250 MG TAB PO PRN (23:22)
[2018-03-21] MEDS: GABAPENTIN 100 MG CAP PO SCH ×4 (00:11→21:12)
[2018-03-21] MEDS: METOPROLOL SUCCINATE (ER) 25 MG TAB.ER.24H PO SCH ×3 (00:11→21:12)
[2018-03-21] MEDS: DILTIAZEM ORAL 30 MG TAB PO SCH ×4 (00:11→21:12)
[2018-03-21] MEDS: ACETAMINOPHEN TAB 325 MG TAB PO PRN ×2 (02:46→07:45)
[2018-03-21] MEDS: VIT A,C & E-LUTEIN-MINERALS 1 EACH TAB PO SCH (06:12)
[2018-03-21] MEDS: PANTOPRAZOLE 40 MG TABLET PO SCH (06:12)
[2018-03-21 07:02] LABS: Glucose,Whole Blood 225 mg/dL (75-99)
[2018-03-21] MEDS: INSULIN NPH/REG INSULIN 70/30 300 UNIT/3 ML VIAL SQ SCH ×2 (07:35→21:13)
[2018-03-21] MEDS: metFORMIN 500 MG TAB PO SCH ×2 (07:37→17:46)
[2018-03-21] MEDS: POTASSIUM CHLORIDE ER 20 MEQ TAB.ER PO SCH ×2 (07:38→17:46)
[2018-03-21] MEDS: LISINOPRIL-HCTZ 20-25 MG 1 EACH TAB PO SCH (07:38)
[2018-03-21] MEDS: SERTRALINE 25 MG TAB PO SCH (07:39)
[2018-03-21] MEDS: PENTOXIFYLLINE 400 MG TABLET.ER PO SCH ×3 (07:39→21:13)
[2018-03-21] MEDS ORDERED: CEFEPIME 2 GM in SODIUM CHLORIDE 0.9% 50 ML IVPB SCH (08:00)
[2018-03-21] MEDS ORDERED: INSULIN NPH/REG INSULIN 70/30 300 UNIT/3 ML VIAL SQ SCH (09:00)
[2018-03-21] MEDS: VANCOMYCIN 1,500 MG in SODIUM CHLORIDE 0.9% 250 ML IVPB SCH (09:32)
[2018-03-21 12:04] LABS: Glucose,Whole Blood 123 mg/dL (75-99)
[2018-03-21 14:14] VITALS: BMI 33.4
--- NOTE | 2018-03-21 15:34 | CONS ---
CONSULTATION DATE OF SERVICE: 03/21/2018. REASON FOR CONSULTATION: Right big toe infection. HISTORY OF PRESENT ILLNESS: The patient is an 82-year-old female who did have a history of recurrent right big toe osteomyelitis. Culture predominantly has been Pseudomonas aeruginosa last time and the patient has been admitted for the same problem was back in the beginning of November 2017. The patient was discharged to a rehab on 11/16/2017 with Fortaz 2 g q.8 hours for 6 weeks which the patient completed and by the end of therapy the patient was showing improvement in her right big toe. Over the last week or 2 the patient seemed to have more swelling and redness to the right big toe area. The patient was evaluated in the wound care center by Dr. Oquendo last week and then the patient was started on oral Keflex. She was examined in the wound care center yesterday. She was noticed to have worsening of her wound with some purulent drainage that has been cultured. The patient subsequently has been sent to the [facility] ER where the patient did have x-rays that was suggestive of destructive changes to the right distal phalangeal joint with concern for septic arthritis. The patient has been admitted hospital and ID was consulted for further recommendation of antibiotic therapy. The patient had been complaining of pain to the right big toe area more off a throbbing pain about 6 to 7/10, and no radiation. The patient did have mild drainage with surrounding swelling, redness and is painful to walk on that foot. The patient denies any high-grade fever, regular chills. Denies any chest pain or shortness of breath or cough. No abdominal pain. No diarrhea. REVIEW OF SYSTEMS: CONSTITUTIONAL: Positive for weakness but no high-grade fever. EYES: No complaint. ENT: No complaint. RESPIRATORY: No complaint. CARDIOVASCULAR: No complaint. GENITOURINARY: No complaint. GASTROINTESTINAL: No complaint. MUSCULOSKELETAL: As per HPI. INTEGUMENTARY: As per HPI. PSYCHOLOGICAL: No complaint. ENDOCRINE: No complaint. NEUROLOGIC: No complaint. PAST MEDICAL HISTORY: Coronary artery disease, type 2 diabetes mellitus, hypertension, hyperlipidemia, atrial fibrillation, diverticulitis, history of colon cancer, pancreatitis, right big toe osteomyelitis secondary to Enterococcus and Pseudomonas aeruginosa. PAST SURGERY HISTORY: right big toe wound, heart catheterization, cholecystectomy, bowel resection, AICD placement, bilateral breast lumpectomy and right knee surgery. SOCIAL HISTORY: The patient denies smoking, drinking or drug use. FAMILY HISTORY: Positive for diabetes and coronary artery disease. ALLERGIES: To LEVAQUIN AND MORPHINE. MEDICATION: Currently include the patient is on cefepime 2 g q.8h. She is on Tylenol, Cardizem, Neurontin, lisinopril, Humalog, lactulose, Glucophage, Toprol XL, Narcan, naproxen, Protonix, Bentyl, Trental, K-Dur, Zoloft and vancomycin pharmacy to dose. EXAMINATION: Blood pressure is 137/87 with a pulse of 72, temperature is 97.4. She is 92% on room air. General description is an elderly female lying in bed in no distress. No tachypnea or accessory muscle of respiration use. HEENT: Shows no pallor or scleral icterus. Oral mucosa is dry. No pharyngeal erythema or thrush. NECK: Trachea central, no thyromegaly. LUNGS: Unlabored breathing. Clear to auscultation anteriorly. No wheeze or crackle. HEART: S1, S2. Regular rate and rhythm. ABDOMEN: Soft, no tenderness. No guarding or rigidity. EXTREMITIES: No edema feet. SKIN: Examination of the right big toe is swollen and red with a wound. Some slough tissue. Tender to touch. NEUROLOGICAL: Patient is awake, alert, oriented and affect normal. LABS: Hemoglobin is 14.8, white count 8.2 with a BUN of 21, creatinine 0.80. Electrolytes have been normal. Liver enzymes are normal. Cultures were obtained yesterday, which are currently pending. No blood cultures were done. DIAGNOSTIC IMPRESSION AND PLAN: Patient with right big toe osteomyelitis with underlying septic arthritis of the metatarsophalangeal joint with a previous culture positive for and Pseudomonas aeruginosa. Could be the same pathogen though the last antibiotic has been completed more than 2 months ago. In view of the recurrent infection, the patient may benefit from a surgical debridement right big toe. However that may be concerning because of other comorbid condition and peripheral arterial disease. PLAN: 1. We will obtain baseline CBC, sedimentation rate and CRP. 2. Vancomycin pharmacy to try to 15, watching the kidney function closely. 3. Cefepime 2 g q.12h. 4. Santyl to the right big toe wound. 5. We will follow up on clinical condition and culture to further adjust medication if needed. We will discuss with vascular surgery if the plan is not for surgical amputation, the patient will need a PICC line for outpatient IV antibiotic therapy. XIOMARA / CARLOSN: [id number] /
[2018-03-21] MEDS: NAPROXEN 250 MG TAB PO SCH (15:55)
[2018-03-21] MEDS: ACETAMINOPHEN TAB 325 MG TAB PO SCH ×2 (15:56→17:42)
[2018-03-21 16:33] LABS: Glucose,Whole Blood 172 mg/dL (75-99)
[2018-03-21] MEDS: PSYLLIUM HUSK 100% 6 GM PACKET PO SCH ×2 (18:19→21:12)
[2018-03-21 20:18] LABS: Glucose,Whole Blood 204 mg/dL (75-99)
--- NOTE | 2018-03-21 21:46 | HP ---
HISTORY AND PHYSICAL DATE OF ADMISSION: 03/20/2018. DATE OF SERVICE: 03/21/2018 PRESENTING COMPLAINT: Right big toe wound. HISTORY OF PRESENTING COMPLAINT: This is a very pleasant 82-year-old patient who was here in the hospital in November of this year. The patient does follow with Dr. Ulysses Jaramillo. Chronic stable medical conditions include coronary artery disease, diabetes, hard of hearing, osteoarthritis, peripheral neuropathy. The patient has a known chronic wound on the ball of the right big toe and had been following with Dr. Oquendo at the wound center. The patient in April of 2017 had then grown Pseudomonas and also has been following with Dr. Cortez. Subsequently, she had also had grown enterococcus. The patient in November of this year yet again had osteomyelitis of the right big toe and then she was sent with Ramírez to the [facility] to complete a 6th course. The wound had actually improved. Subsequently, the patient's wound again started draining and the patient continued to see Dr. Oquendo in the wound care center and last week it again started putting out pus, infected, painful. Dr. Oquendo put the patient on Keflex with no improvement. Yesterday patient came to the wound center, looked much worse and the patient was admitted to the medical floor. The patient was started on IV cefepime and vancomycin and cultures had been sent off. Patient denies any obvious fever and chills, just feels tired and run down. REVIEW OF SYSTEMS: CONSTITUTIONAL: None. HEENT: Decreased hearing. RESPIRATORY: None. CARDIOVASCULAR: None. GASTROINTESTINAL: None. GENITOURINARY: None. MUSCULOSKELETAL: Aches and pains in different joints. DERMATOLOGICAL: As above. LYMPHATICS: None. PSYCHIATRY: None. NEUROLOGICAL: Poor sensation in the right hand from prior injury. PAST MEDICAL HISTORY: Atrial fibrillation, coronary artery disease, diabetes mellitus type 2, decreased hearing, hyperlipidemia, hypertension, diverticulitis, cervical cancer, pancreatitis, right big toe recurrent infection, osteomyelitis, gallstones with removal, constipation, peripheral artery disease. PAST SURGICAL HISTORY: AICD, bowel resection, cholecystectomy, cardiac catheterization, left rotator cuff surgery, bilateral breast lumpectomy, right hand surgery with pins. SOCIAL HISTORY: Lives at a snf at [facility] in [place]. Has home care, uses a walker or a 4-pronged cane. Does not smoke. No alcohol. FAMILY HISTORY: Coronary artery disease and diabetes. HOME MEDICATIONS: 1. Motrin 800 mg every 6 hours p.r.n. 2. Humulin 70/30, 30 units subcu b.i.d. 3. Neurontin 200 mg p.o. t.i.d. 4. Lasix 40 mg p.o. daily. 5. Cardizem 30 mg p.o. t.i.d. 6. Vitamin D3 1000 units p.o. daily. 7. Toprol-XL 25 mg p.o. b.i.d. 8. Zestoretic 20/25 one tablet p.o. daily p.r.n. 9. Lactulose 20 g p.o. daily p.r.n. 10.Metformin 1000 mg p.o. b.i.d. 11.PreserVision AREDS 2 soft gel 1 capsule p.o. daily. 12.Zoloft 25 mg p.o. daily. 13.Potassium 20 mEq p.o. b.i.d. 14.Pentoxifylline 400 mg p.o. t.i.d. 15.Prilosec 20 mg p.o. daily. ALLERGIES: To LEVAQUIN and MORPHINE. EXAMINATION: VITAL SIGNS: On presentation, temperature 98.5, pulse 60, respirations 18, blood pressure 136/65, pulse ox 98% on room air. GENERAL APPEARANCE: Well-built, BMI 33.4, lying in bed, not in distress. EYES: Pupils equal. Conjunctivae normal. HEENT: External appearance of nose and ears normal. Decreased hearing. Oral cavity normal. NECK: JVD not raised. Mass not palpable. RESPIRATORY: Effort normal. LUNGS: Fair air entry. CARDIOVASCULAR: First and second sounds normal. No edema. ABDOMEN: Soft, nontender. Liver and spleen not palpable. LYMPHATIC: No lymph node palpable in neck or axillae. PSYCHIATRY: Alert and oriented x3. Mood and affect normal. NEUROLOGICAL: Pupils equal. Cranial nerve grossly intact. Power and sensation grossly intact. EXTREMITIES: Right wound on the big toe. See more details in nursing notes. INVESTIGATIONS: White count 8.2, hemoglobin 14.8. Potassium 4.8, BUN 21, creatinine 0.8. Accu-Cheks noted. Foot x-ray shows destructive changes of the 1st MP joint, mild hallux subluxation, significant obliteration of the joint space suggestive of septic arthritis. ASSESSMENT: 1. Acute right big toe recurrent osteomyelitis in a patient who has previously grown enterococcus, Pseudomonas from that joint and last time did receive a course of Fortaz. The patient has known poor circulation and recurrent infection in that joint. It may be a better option to have this amputated, but let Infectious Disease and Dr. Oquendo make the decision if that is the best option for the patient. Of course, salvage of the limb is always a good aim. 2. 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 3. Peripheral artery disease. 4. Coronary artery disease. 5. Hyperlipidemia. 6. Essential hypertension. 7. Primary osteoarthritis. 8. Chronic urinary stress incontinence. 9. Essential hypertension. PLAN: Home medications are resumed. Cultures are pending. The patient is on IV cefepime and vancomycin. I did talk to Dr. Oquendo over the phone today. He will discuss with the patient's daughter and Dr. Cortez and determine the best route if amputation of the big toe will serve the best option or not. Accu-Cheks are to be closely followed. Care was discussed with the patient. Naproxen will be added for anti-inflammatory effect for the pain. Accu-Cheks will be closely followed. MMODL / IJN: [id number] /
[2018-03-21] MEDS ORDERED: ACETAMINOPHEN TAB 325 MG TAB ONE (23:53)
[2018-03-22] MEDS: ACETAMINOPHEN TAB 325 MG TAB PO SCH ×5 (05:25→23:26)
[2018-03-22] MEDS: PANTOPRAZOLE 40 MG TABLET PO SCH (05:32)
[2018-03-22] MEDS: VIT A,C & E-LUTEIN-MINERALS 1 EACH TAB PO SCH (05:32)
[2018-03-22 07:07] LABS: Glucose,Whole Blood 66 mg/dL (75-99)
[2018-03-22 07:29] LABS: Glucose,Whole Blood 97 mg/dL (75-99)
[2018-03-22] MEDS: SERTRALINE 25 MG TAB PO SCH (07:53)
[2018-03-22] MEDS: POTASSIUM CHLORIDE ER 20 MEQ TAB.ER PO SCH ×2 (07:53→17:17)
[2018-03-22] MEDS: PENTOXIFYLLINE 400 MG TABLET.ER PO SCH ×3 (07:54→21:55)
[2018-03-22] MEDS: metFORMIN 500 MG TAB PO SCH ×2 (07:54→17:17)
[2018-03-22] MEDS: NAPROXEN 250 MG TAB PO SCH ×3 (07:55→17:17)
[2018-03-22] MEDS: DILTIAZEM ORAL 30 MG TAB PO SCH ×3 (07:55→21:56)
[2018-03-22] MEDS: LISINOPRIL-HCTZ 20-25 MG 1 EACH TAB PO SCH (07:55)
[2018-03-22] MEDS: GABAPENTIN 100 MG CAP PO SCH ×3 (07:55→21:56)
[2018-03-22] MEDS: METOPROLOL SUCCINATE (ER) 25 MG TAB.ER.24H PO SCH ×2 (07:56→21:56)
[2018-03-22] MEDS: INSULIN NPH/REG INSULIN 70/30 300 UNIT/3 ML VIAL SQ SCH ×2 (07:57→21:56)
[2018-03-22 07:59] LABS: Anion Gap 10 mmol/L; Blood Urea Nitrogen 23 mg/dL (7-17); Carbon Dioxide 29 mmol/L (22-30); Chloride 103 mmol/L (98-107); Glucose 52 mg/dL (74-99); Potassium 4.5 mmol/L (3.5-5.1); Sodium 142 mmol/L (137-145)
[2018-03-22] MEDS: PSYLLIUM HUSK 100% 6 GM PACKET PO SCH ×4 (08:00→22:22)
--- NOTE | 2018-03-22 08:47 | CONS ---
CONSULTATION This is an 82-year-old female, well known to me from the past. Patient came this Tuesday with infected wound right foot big toe. This patient has a chronic wound foot for the past one year and we have been treating with local wound care and antibiotic. We did the angiogram. The patient has infrapopliteal occlusive disease. The patient admitted with IV antibiotic. Consult was obtained for Infectious Disease. The patient also noticed to have a blister on the second toe and superficial ulceration of the third toe. Patient has a history of diabetes, hypertension, coronary artery disease. PHYSICAL EXAMINATION: On examination, neck is supple and trachea central. CHEST: Clear on auscultation. ABDOMEN: Soft. Femorals are 1+. Posterior tibial and dorsal pedis not palpable. Right foot big toe has an open wound which is chronic and there is redness and tenderness noted with some cellulitis of the big toe. The patient was draining pus from that open wound which we took a culture when she came to the Wound Center. This patient's foot x-ray shows there is some destructive changes in the first MP joint with mild subluxation and significant obliteration of the joint space. PLAN: We will continue with IV antibiotic. I will discuss with the family and Infectious Disease. Her wound is almost more than a year and it is not healing, and she is not a candidate for any vascular bypass because she has infrapopliteal disease. We will discuss about the right big toe amputation. I am waiting for her daughter to come so we can discuss about this patient. In the meantime, we will continue with IV antibiotic. MMODL / IJN: [id number] /
[2018-03-22] MEDS ORDERED: CEFEPIME 2 GM in SODIUM CHLORIDE 0.9% 50 ML IVPB SCH (09:00)
[2018-03-22] MEDS: VANCOMYCIN 1,500 MG in SODIUM CHLORIDE 0.9% 250 ML IVPB SCH (09:21)
[2018-03-22 11:56] LABS: Glucose,Whole Blood 159 mg/dL (75-99)
[2018-03-22 14:07] LABS: C Reactive Protein <5.0 mg/L (<10.0)
[2018-03-22 17:02] LABS: Glucose,Whole Blood 75 mg/dL (75-99)
[2018-03-22 20:24] LABS: Glucose,Whole Blood 155 mg/dL (75-99)
--- NOTE | 2018-03-22 23:32 | PN ---
PROGRESS NOTE DATE OF SERVICE: 03/22/2018. REASON FOR FOLLOWUP: Right diabetic big toe osteomyelitis/septic arthritis. INTERVAL HISTORY: The patient is afebrile. She is breathing comfortably. Denies having any chest pain or shortness of breath. No cough. No abdominal pain or any diarrhea. EXAMINATION: Blood pressure is 113/60 with a pulse of 70, temperature 97.3. She is 97% on room air. General description is an elderly female up in the bed in no distress. Respiratory system: Unlabored breathing. Clear to auscultation anteriorly. HEART: S1, S2. Regular rate and rhythm. Abdomen is soft. No tenderness. The right big toes is currently swelling. Redness slightly decreased. No drainage. LABS: BUN of 23, creatinine 0.76. The wound culture finalized with Pseudomonas aeruginosa that is sensitive pathogen. DIAGNOSTIC IMPRESSION AND PLAN: Patient with right big toe septic arthritis, osteomyelitis cultures with Pseudomonas aeruginosa. Antibiotic will be adjusted to Fortaz 2 g, discontinue cefepime and vancomycin. Continue supportive care. MMODL / IJN: [id number] /
--- NOTE | 2018-03-23 00:05 | PN ---
PROGRESS NOTE DATE OF SERVICE: 03/22/2018 PRESENTING COMPLAINT: Right big toe wound. INTERVAL HISTORY: This is a patient that presented with nonhealing wound of the right big toe, going on for quite with recurrent osteomyelitis. I did speak to Dr. Oquendo last night. He today is waiting to talk to the family and make a decision whether to proceed with amputation. The patient still has pain in the right big toe. Otherwise, tolerating a diet. REVIEW OF SYSTEMS: Done for constitutional, cardiovascular, GI, pulmonary; relevant findings as above. CURRENT MEDICATIONS: Reviewed that include IV ceftazidime. EXAMINATION: Temperature 97.3, pulse 72, respirations 18, blood pressure 132/78 pulse 96% on room air. GENERAL APPEARANCE: Sitting up, awake. EYES: Pupils equal. Conjunctivae normal. HEENT: External appearance of nose and ears normal. Oral cavity normal. Decreased hearing. NECK: JVD not raised. Mass not palpable. RESPIRATORY: Effort normal. Lungs are clear. CARDIOVASCULAR: First and second sounds normal. No edema. ABDOMEN: Soft, nontender. Liver and spleen not palpable. PSYCHIATRY: Alert and oriented x3. Mood and affect normal. EXTREMITIES: Right big toe wound. INVESTIGATIONS: Potassium 4.5. CRP less than 5. ASSESSMENT: 1. Acute right big toe recurrent osteomyelitis in a patient who has had previously grown enterococcus, Pseudomonas in the setting of poor circulation and recurrent infections in that joint. Dr. Oquendo is looking at the option of amputation, will decide that with the family. The wound itself is slow to respond. 2. 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 3. Peripheral artery disease. 4. Coronary artery disease. 5. Hyperlipidemia. 6. Essential hypertension. 7. Primary osteoarthritis. 8. Chronic urinary stress incontinence. 9. Essential hypertension. PLAN: The patient was given a laxative. Other medication and antibiotics to continue. Will await further decision making from Dr. Oquendo in terms of if amputation needs to be done. MMODL / IJN: [id number] /
[2018-03-23] MEDS: PANTOPRAZOLE 40 MG TABLET PO SCH (05:38)
[2018-03-23] MEDS: VIT A,C & E-LUTEIN-MINERALS 1 EACH TAB PO SCH (05:38)
[2018-03-23] MEDS: ACETAMINOPHEN TAB 325 MG TAB PO SCH ×3 (05:38→18:32)
[2018-03-23 07:14] LABS: Glucose,Whole Blood 81 mg/dL (75-99)
[2018-03-23] MEDS: metFORMIN 500 MG TAB PO SCH ×2 (08:46→18:02)
[2018-03-23] MEDS: POTASSIUM CHLORIDE ER 20 MEQ TAB.ER PO SCH ×2 (08:46→18:32)
[2018-03-23] MEDS: PENTOXIFYLLINE 400 MG TABLET.ER PO SCH ×3 (08:46→21:57)
[2018-03-23] MEDS: GABAPENTIN 100 MG CAP PO SCH ×3 (08:46→21:37)
[2018-03-23] MEDS: NAPROXEN 250 MG TAB PO SCH ×3 (08:47→18:32)
[2018-03-23] MEDS: LISINOPRIL-HCTZ 20-25 MG 1 EACH TAB PO SCH (08:47)
[2018-03-23] MEDS: METOPROLOL SUCCINATE (ER) 25 MG TAB.ER.24H PO SCH ×2 (08:48→21:37)
[2018-03-23] MEDS: DILTIAZEM ORAL 30 MG TAB PO SCH ×3 (08:48→21:38)
[2018-03-23] MEDS: INSULIN NPH/REG INSULIN 70/30 300 UNIT/3 ML VIAL SQ SCH ×2 (08:49→21:38)
[2018-03-23] MEDS: SERTRALINE 25 MG TAB PO SCH (08:49)
[2018-03-23] MEDS: PSYLLIUM HUSK 100% 6 GM PACKET PO SCH ×2 (09:03→21:41)
--- NOTE | 2018-03-23 09:27 | CDI ---
Last Revision, August 2017 Documentation Clarification Form Date: 03/23/18 From: Patsy An RN, CCDS Admit Date: 03/20/2018 9:10:00 PM Patient Name: Natalia Vega Visit Number: [id number] Discharge Date: ATTENTION: The Clinical Documentation Specialists (CDI) and [facility] Coding Staff appreciate your assistance in clarifying documentation. Please respond to the clarification below the line at the bottom and electronically sign. The CDI & [facility] Coding staff will review the response and follow-up if needed. Please note: Queries are made part of the Legal Health Record. If you have any questions, please contact the author of this message via ITS. Dr. Alejandro Cortez Osteomyelitis has been documented in the in the past medical history, your consult and your progress notes and further clarification is needed. History/Risk Factors: Diabetes mellitus type 2, Atrial fibrillation, Coronary Artery Disease, Hypertension, Recurrent right big toe osteomyelitis Clinical Indicators: Patient was seen at the right big toe wound care center and was noticed to have worsening of her worsening of her wound with some purulent drainage. Labs on admission: WBC 8.2, BUN 21, CR 0.80, Lactic acid 2.0 X-Ray Results: suggestive of destructive changes to the right distal phalangeal joint with concern for septic arthritis. Treatment: IV Vancomycin, IV Cefepime changed to IV Fortaz Monitor labs, Blood sugars Santyl to right big toe wound In your professional opinion, please further specify the following: Acuity: Acute Chronic Subacute Unable to Determine Cause: Viral (specify organism if know): Bacterial (specify organism if know): Other (please specify): Unable to Determine Associated condition (is it related to): Diabetic Peripheral arterial disease Major osseous defect (specify site) Other (please specify): Please continue to document in your progress notes and discharge summary in order to capture severity of illness and risk of mortality. Include clinical findings that support your diagnosis. MTDD
[2018-03-23 11:10] LABS: Glucose,Whole Blood 132 mg/dL (75-99)
[2018-03-23 16:49] LABS: Glucose,Whole Blood 51 mg/dL (75-99)
[2018-03-23 17:12] LABS: Glucose,Whole Blood 67 mg/dL (75-99)
[2018-03-23 17:18] LABS: Glucose,Whole Blood 68 mg/dL (75-99)
[2018-03-23 17:46] LABS: Glucose,Whole Blood 80 mg/dL (75-99)
[2018-03-23 20:24] LABS: Glucose,Whole Blood 177 mg/dL (75-99)
--- NOTE | 2018-03-23 21:03 | PN ---
PROGRESS NOTE DATE OF SERVICE: 03/23/2018 PRESENTING COMPLAINT: Right big toe wound. INTERVAL HISTORY: Patient presented with a nonhealing wound on the right big toe and recurrent osteomyelitis. Did speak to Dr. Oquendo this afternoon. He had spoken to the patient and family; did not feel the patient will be a good candidate for amputation because of poor healing. Plan is to continue with antibiotics. REVIEW OF SYSTEMS: Done for constitutional, cardiovascular, GI, pulmonary; relevant findings as above. CURRENT MEDICATIONS: Reviewed. They include IV ceftazidime. PHYSICAL EXAMINATION: Temperature 97.5, pulse 56, respiration 16, blood pressure 107/54, pulse ox 97% on room air. GENERAL APPEARANCE: Sitting up on the edge of the bed. EYES: Pupils equal. Conjunctivae normal. HEENT: External appearance of nose and ears normal. Oral cavity normal. NECK: JVD not raised. Mass not palpable. RESPIRATORY: Effort normal. LUNGS: Fair air entry. CARDIOVASCULAR: First and second sounds normal. No edema. ABDOMEN: Soft, non-tender. Liver and spleen not palpable. PSYCHIATRY: Alert and oriented x3. Mood and affect normal. EXTREMITIES: Right foot big toe wound. INVESTIGATIONS: Accu-Cheks are noted. Blood cultures are negative. ASSESSMENT: 1. Acute right big toe wound, probably osteomyelitis, recurrent. At this point, continue to treat with IV antibiotics. 2. Diabetes mellitus, type 2, chronically on insulin, uncontrolled causing hypoglycemia, causing peripheral neuropathy. 3. Peripheral artery disease. 4. Coronary artery disease. 5. Hyperlipidemia. 6. Essential hypertension. 7. Primary osteoarthritis. 8. Chronic urinary stress incontinence. 9. Essential hypertension. PLAN: I will put in a consult for a PICC line. I spoke to Dr. Cortez from Infectious Disease. Patient will complete a course of ceftazidime at the [facility]. MMODL / IJN: [id number] /
--- NOTE | 2018-03-23 21:03 | PN ---
PROGRESS NOTE DATE OF SERVICE: 03/23/2018. REASON FOR FOLLOWUP: Right big toe acute on chronic osteomyelitis with underlying PAD secondary to Pseudomonas aeruginosa. INTERVAL HISTORY: The patient is afebrile. She is breathing comfortably. Denies having any chest pain or shortness of breath: No abdominal pain or any worsening pain to the right big toe. EXAMINATION: Blood pressure is 121/56, pulse of 83 with a temperature of 98.2. She is 97% on room air. General description is an elderly female lying in bed in no distress. RESPIRATORY SYSTEM: Unlabored breathing. Clear to auscultation anteriorly. HEART: S1, S2. Regular rate and rhythm. ABDOMEN: Soft, no tenderness. Right big toe swelling and redness slightly decreased. No drainage. LABS: No new lab has been obtained. Blood culture has been negative. DIAGNOSTIC IMPRESSION AND PLAN: Patient with right big toe acute on chronic osteomyelitis secondary to Pseudomonas aeruginosa with underlying peripheral arterial disease and type 2 diabetes mellitus being a risk factor with high risk of nonhealing of the wound after surgical resection. Hence, it has been decided no amputation of the big toe. Rather trial of the medical therapy and PICC line will be placed and the patient continue Fortaz 2 g q.8 for another 6 weeks with close outpatient followup. Weekly monitoring of CBC, BMP and sed rate. Plan of care discussed with the admitting physician. XIOMARA / CARLOSN: [id number] /
[2018-03-23 22:32] VITALS: RESP 16
[2018-03-24] MEDS: ACETAMINOPHEN TAB 325 MG TAB PO SCH ×3 (01:13→11:59)
[2018-03-24 02:00] LABS: Glucose,Whole Blood 168 mg/dL (75-99)
[2018-03-24] MEDS: VIT A,C & E-LUTEIN-MINERALS 1 EACH TAB PO SCH (06:06)
[2018-03-24] MEDS: PANTOPRAZOLE 40 MG TABLET PO SCH (06:06)
[2018-03-24 07:05] LABS: Glucose,Whole Blood 198 mg/dL (75-99)
[2018-03-24] MEDS: NAPROXEN 250 MG TAB PO SCH ×2 (09:09→12:00)
[2018-03-24] MEDS: METOPROLOL SUCCINATE (ER) 25 MG TAB.ER.24H PO SCH (09:18)
[2018-03-24] MEDS: LISINOPRIL-HCTZ 20-25 MG 1 EACH TAB PO SCH (09:18)
[2018-03-24] MEDS: metFORMIN 500 MG TAB PO SCH (09:18)
[2018-03-24] MEDS: GABAPENTIN 100 MG CAP PO SCH ×2 (09:19→12:01)
[2018-03-24] MEDS: POTASSIUM CHLORIDE ER 20 MEQ TAB.ER PO SCH (09:19)
[2018-03-24] MEDS: INSULIN NPH/REG INSULIN 70/30 300 UNIT/3 ML VIAL SQ SCH (09:19)
[2018-03-24] MEDS: PENTOXIFYLLINE 400 MG TABLET.ER PO SCH ×2 (09:20→12:01)
[2018-03-24] MEDS: PSYLLIUM HUSK 100% 6 GM PACKET PO SCH (09:20)
[2018-03-24] MEDS: DILTIAZEM ORAL 30 MG TAB PO SCH ×2 (09:20→12:01)
[2018-03-24] MEDS: SERTRALINE 25 MG TAB PO SCH (09:20)
[2018-03-24] MEDS ORDERED: LIDOCAINE 1% INJ 10MG/ML (20 ML MDV) SQ ONE (11:24)
[2018-03-24 11:52] LABS: Glucose,Whole Blood 205 mg/dL (75-99)
[2018-03-24] MEDS ORDERED: COLLAGENASE 250 UNIT/GM OINTMENT 30 GM TUBE TOPICAL SCH (14:30)
--- NOTE | 2018-03-24 15:25 | DS ---
DISCHARGE SUMMARY DATE OF ADMISSION: 03/20/2018 DATE OF DISCHARGE: 03/24/2018 FINAL DIAGNOSES: 1. Acute right big toe wound, probably osteomyelitis, recurrent, from peripheral artery disease secondary to diabetes. 2. Diabetes mellitus, type 2, chronically on insulin, uncontrolled, causing hypoglycemia causing peripheral neuropathy. 3. Peripheral artery disease. 4. Coronary artery disease. 5. Hyperlipidemia. 6. Essential hypertension. 7. Primary osteoarthritis. 8. Chronic urinary stress incontinence. 9. Essential hypertension. HOSPITAL COURSE: This is a patient with a recurrent wound to the right big toe who yet again presented with a wound to the right big toe not healing, draining pus. Blood cultures were negative. Patient was put on antibiotics per Dr. Cortez. Dr. Oquendo did speak to the family and the patient and felt it may not be a good idea to amputate because of poor wound healing. Hence patient will get a protracted course of antibiotics. Pain is otherwise controlled. On examination, lungs are clear. CARDIOVASCULAR: First and second sounds normal. DISCHARGE MEDICATIONS: 1. Vitamin D3 1000 units p.o. daily. 2. Pentoxifylline 400 mg p.o. t.i.d. 3. Zoloft 25 mg p.o. daily. 4. Cardizem 30 mg p.o. t.i.d. 5. Humulin 70/30, 30 units subcutaneously b.i.d. 6. Zestoretic 20/25 one tablet p.o. daily. 7. PreserVision AREDS 2 soft gel 1 capsule p.o. daily. 8. Metformin 1000 mg p.o. b.i.d. 9. Lactulose 20 grams p.o. daily p.r.n. 10.Prilosec 20 mg p.o. daily. 11.Toprol XL 25 mg p.o. b.i.d. 12.Fortaz 2 grams IV piggyback q.8 hours for 42 days. 13.Tylenol 650 mg q.6. 14.Santyl 1 application topically. 15.Neurontin 200 mg p.o. t.i.d. 16.Naproxen 250 mg p.o. t.i.d. 17.Metamucil 6 grams p.o. b.i.d. DISPOSITION: [facility]. Follow up with Dr. Kebede at [facility]. Follow up with Dr. Cortez in one week. Patient to follow in the wound care center with Dr. Oquendo this coming Tuesday. Wound dressing change every day with Santyl to the right great toe and that covered with dry gauze. Left toe covered with dry gauze. Case was discussed with the social/caser shoe parts. Discussion with the patient was done. Discharge planning more than 35 minutes. MMODL / CARLOSN: [id number] /
[2018-03-24 15:48] VITALS: BP 118/55; PULSE 64; TEMP 98
--- NOTE | 2018-03-27 14:43 | IR ---
EXAMINATION TYPE: IR cvc insert >=5 years DATE OF EXAM: 03/24/2018 COMPARISON: NONE CLINICAL HISTORY: Infection Needs long-term intravenous access for antibiotics. PROCEDURE: After informed consent, the skin overlying the right upper extremity vein was localized with ultrasou nd and noted to be compressible and patent. An ultrasound image was obtained and submitted on the steve english's chart. The overlying skin was prepped and draped and Lidocaine was used for local anesthesia . A skin pam was made with a scalpel. Access was gained to the vein under ultrasound guidance with a 21 gauge needle and a 0.018 inch wire was advanced. Access site was dilated with Peel-Away sheath and catheter tailored to the appropriate length and advanced such that the distal tip is at the cavo atrial junction. Spot image was obtained verifying placement. Catheter was fixed to the skin and a sterile dressing was placed following hemostasis. Catheter was aspirated and flushed with saline. P atient was discharged in stable condition without complication. Maximal barrier technique is utilized . Ultrasound image is documented on the chart. Ultrasound used with sterile technique. Fluoro time and fluoroscopic images submitted to document procedure: 1.6 minutes fluoroscopy, 383 int raoperative C-arm images IMPRESSION: STATUS POST ULTRASOUND AND FLUOROSCOPIC GUIDED PICC LINE PLACEMENT, READY FOR USE. THIS PROCEDURE WAS PERFORMED BY THE UNDERSIGNED.
== END 2018-03-24 16:35 | disposition home or self-care (01) | DRG 300 ==
LOC: EC 14:56 → 5MS5E 21:10
PROVIDERS: ADMIT Hospitalist; ATTEND Hospitalist
PROC: 02HV33Z Insertion of Infusion Device into Superior Vena Cava, Percutaneous Approach (ICD-10-PCS; principal; 2018-03-24 11:00)
DX: E11.51 Type 2 diabetes mellitus with diabetic peripheral angiopathy without gangrene (principal); M86.171 Other acute osteomyelitis, right ankle and foot; M00.9 Pyogenic arthritis, unspecified; E11.69 Type 2 diabetes mellitus with other specified complication; E11.621 Type 2 diabetes mellitus with foot ulcer; E11.42 Type 2 diabetes mellitus with diabetic polyneuropathy; B96.5 Pseudomonas (aeruginosa) (mallei) (pseudomallei) as the cause of diseases classified elsewhere; B95.2 Enterococcus as the cause of diseases classified elsewhere; L97.519 Non-pressure chronic ulcer of other part of right foot with unspecified severity; E78.5 Hyperlipidemia, unspecified; H91.90 Unspecified hearing loss, unspecified ear; I10 Essential (primary) hypertension; I25.10 Atherosclerotic heart disease of native coronary artery without angina pectoris; I48.91 Unspecified atrial fibrillation; M19.91 Primary osteoarthritis, unspecified site; N39.3 Stress incontinence (female) (male); S90.426A Blister (nonthermal), unspecified lesser toe(s), initial encounter; Z79.84 Long term (current) use of oral hypoglycemic drugs; Z79.899 Other long term (current) drug therapy; Z82.49 Family history of ischemic heart disease and other diseases of the circulatory system; Z83.3 Family history of diabetes mellitus; Z85.038 Personal history of other malignant neoplasm of large intestine; Z85.41 Personal history of malignant neoplasm of cervix uteri; Z95.810 Presence of automatic (implantable) cardiac defibrillator; Z88.1 Allergy status to other antibiotic agents; Z88.5 Allergy status to narcotic agent; Z90.49 Acquired absence of other specified parts of digestive tract; Z98.42 Cataract extraction status, left eye; Z98.41 Cataract extraction status, right eye
CPT/HCPCS: 36415; 36569; 76937; 77001; 80048; 80053; 83605; 85025; 85652; 86140; 87040; 96365; 96366; 96375; 99285

== ENCOUNTER 2018-03-31 06:52 | Inpatient (IN) | payer MEDICARE, BC ==
--- NOTE | 2018-03-31 07:21 | ED ---
General Adult HPI - General Chief complaint: Shortness of Breath Stated complaint: cynthia Time Seen by Provider: 03/31/18 07:11 Source: patient, EMS, RN notes reviewed Mode of arrival: EMS Limitations: no limitations - History of Present Illness Initial comments: Patient is a pleasant 82-year-old female presenting to the emergency Department with shortness of breath. Symptoms have been present for a couple of days however much worse last night. Minimal cough. This pain. No history of similar symptoms previously. Patient is a poor historian overall. No fevers. - Related Data Home Medications Medication Instructions Recorded Confirmed Cholecalciferol [Vitamin D3] 1,000 unit PO DAILY@0600 12/13/16 03/31/18 Pentoxifylline 400 mg PO TID@12/13/16 03/31/18 Sertraline HCl [Zoloft] 25 mg PO DAILY 12/13/16 03/31/18 Diltiazem Oral [Cardizem*] 30 mg PO TID@03/21/17 03/31/18 Insulin NPH/Reg Insulin 70/30 25 unit SQ HS 11/10/17 03/31/18 [humuLIN 70/30 VIAL] Lisinopril-Hctz 20-25 mg 1 tab PO DAILY 11/10/17 03/31/18 [Zestoretic 20-25] Vit C/E/Zn/Coppr/Lutein/Zeaxan 1 cap PO DAILY@0600 11/10/17 03/31/18 [Preservision Areds 2 Softgel] metFORMIN HCL 1,000 mg PO BID@0900,1700 11/10/17 03/31/18 Omeprazole [PriLOSEC] 20 mg PO DAILY@0600 12/08/17 03/31/18 Metoprolol Succinate [Toprol XL] 75 mg PO BID 12/12/17 03/31/18 Collagenase [Santyl] 1 applic TOPICAL DAILY PRN 03/31/18 03/31/18 Collagenase [Santyl] 1 applic TOPICAL HS 03/31/18 03/31/18 Insulin NPH/Reg Insulin 70/30 30 unit SQ QAM 03/31/18 03/31/18 [humuLIN 70/30 VIAL] Senna-S 1 tab PO BID@0900,1700 03/31/18 03/31/18 Sodium Chloride 0.9% Irrigatio 10 ml IRRIGATION TID@0600,1400,2200 03/31/18 [Saline 0.9% Irrigation] Therahoney Gel 1 applic TOPICAL DAILY PRN 03/31/18 03/31/18 Therahoney Gel 1 applic TOPICAL HS 03/31/18 03/31/18 Triad Wound Paste 1 applic TOPICAL BID 03/31/18 03/31/18 cefTAZidime [Fortaz] 2 gm IVPB TID@0600,1400,2200 03/31/18 03/31/18 Previous Rx's Medication Instructions Recorded Lactulose [Cephulac] 20 gm PO DAILY PRN ml 11/16/17 Acetaminophen Tab [Tylenol] 650 mg PO Q6HR tab 03/24/18 Gabapentin [Neurontin] 200 mg PO TID@,, #9 cap 03/24/18 Naproxen [Naprosyn] 250 mg PO TID-W/MEALS tab 03/24/18 Allergies Allergy/AdvReac Type Severity Reaction Status Date / Time levofloxacin [From Levaquin] Allergy Mild Rash/Hives Verified 03/31/18 07:16 morphine Allergy Rapid Verified 03/31/18 07:16 Heart Rate Review of Systems ROS Statement: Those systems with pertinent positive or pertinent negative responses have been documented in the HPI. ROS Other: All systems not noted in ROS Statement are negative. Constitutional: Denies: fever Eyes: Denies: eye pain ENT: Denies: ear pain Respiratory: Reports: dyspnea Cardiovascular: Denies: chest pain Endocrine: Reports: fatigue Gastrointestinal: Denies: abdominal pain Genitourinary: Denies: dysuria Musculoskeletal: Denies: back pain Skin: Denies: rash Neurological: Denies: weakness Past Medical History Past Medical History: Atrial Fibrillation, Coronary Artery Disease (CAD), Cancer , Diabetes Mellitus, GERD/Reflux, Hearing Disorder / Deafness, Hyperlipidemia, Hypertension, Osteoarthritis (OA) Additional Past Medical History / Comment(s): diverticultis, rt arm fx, cervical cancer, pancreatitis, right foot infection, gall stones and removal, FALL/fx coccyx 08-29-17, CONSTIPATION, PAD, RT FOOT (great toe) WOUND HAS BEEN GOING TO THE [facility] , [place] History of Any Multi-Drug Resistant Organisms: None Reported Date of last positivie culture/infection: None MDRO Source:: None Past Surgical History: AICD, Bowel Resection, Cholecystectomy, Heart Catheterization, Hysterectomy, Orthopedic Surgery Additional Past Surgical History / Comment(s): Internal defibulator 09-15-17, LT ROTATOR CUFF X2, BUNIONECTOMY JACQUELINE,, JACQUELINE BREAST LUMPECTOMIES-BOTH NEG,, X2 ERCP, RT HAND SX PINS PLACED-BUT SINCE REMOVED, CATARACTS. 12/01/17 picc line inserted- since removed Past Anesthesia/Blood Transfusion Reactions: No Reported Reaction Type of Cardiac Device: AICD Device Placement Date:: 09-15-17 Past Psychological History: No Psychological Hx Reported Smoking Status: Former smoker Past Alcohol Use History: None Reported Past Drug Use History: None Reported - Past Family History Mother Family Medical History: No Reported History Additional Family Medical History / Comment(s): HEART DISEASE Father Family Medical History: Coronary Artery Disease (CAD), Diabetes Mellitus General Exam Limitations: no limitations General appearance: alert, in no apparent distress Head exam: Present: atraumatic Eye exam: Present: normal appearance, PERRL ENT exam: Present: normal oropharynx Neck exam: Present: normal inspection Respiratory exam: Present: decreased breath sounds Cardiovascular Exam: Present: irregular rhythm GI/Abdominal exam: Present: soft. Absent: tenderness Extremities exam: Present: normal inspection. Absent: pedal edema, calf tenderness Back exam: Present: normal inspection Neurological exam: Present: alert Psychiatric exam: Present: normal affect, normal mood Skin exam: Present: normal color Course Vital Signs 03/31/18 03/31/18 03/31/18 06:57 08:35 08:44 Temperature 98.6 F Pulse Rate 90 87 87 Respiratory 26 H Rate Blood Pressure 178/83 O2 Sat by Pulse 90 L Oximetry 03/31/18 03/31/18 09:10 10:00 Temperature Pulse Rate 99 91 Respiratory 18 20 Rate Blood Pressure 147/104 145/72 O2 Sat by Pulse 95 96 Oximetry EKG Findings - EKG Comments: EKG Findings:: A. fib with rate of 93. PVC present. QRS 84. QT 364. QTC 452. Normal axis. Normal QRS. No acute ST change. Medical Decision Making - Medical Decision Making Patient reevaluated and is resting comfortably in bed. Patient and family updated on results and plan. Patient is currently on antibiotics for foot infection. Patient does have history of previous instrumentation: ERCP secondary to stone obstruction and her biliary ducts. Dr. Myers has been paged for admission for Dr. kebede. On earlier reevaluation patient had stated she had some abdominal discomfort actually for a couple of days. There is very mild tenderness diffusely on re-exam. - Lab Data Result diagrams: 03/31/18 07:05 03/31/18 07:05 Lab Results 03/31/18 03/31/18 03/31/18 Range/Units 07:05 07:05 07:05 WBC 8.4 (3.8-10.6) k/uL RBC 4.63 (3.80-5.40) m/uL Hgb 13.3 (11.4-16.0) gm/dL Hct 40.0 (34.0-46.0) % MCV 86.3 (80.0-100.0) fL MCH 28.8 (25.0-35.0) pg MCHC 33.3 (31.0-37.0) g/dL RDW 15.7 H (11.5-15.5) % Plt Count 159 (150-450) k/uL Neutrophils % 75 % Lymphocytes % 14 % Monocytes % 5 % Eosinophils % 4 % Basophils % 0 % Neutrophils # 6.3 (1.3-7.7) k/uL Lymphocytes # 1.2 (1.0-4.8) k/uL Monocytes # 0.4 (0-1.0) k/uL Eosinophils # 0.4 (0-0.7) k/uL Basophils # 0.0 (0-0.2) k/uL PT (9.0-12.0) sec INR (<1.2) APTT (22.0-30.0) sec D-Dimer (<0.60) mg/L FEU Sodium 138 (137-145) mmol/L Potassium 4.9 (3.5-5.1) mmol/L Chloride 103 (98-107) mmol/L Carbon Dioxide 26 (22-30) mmol/L Anion Gap 9 mmol/L BUN 17 (7-17) mg/dL Creatinine 0.50 L (0.52-1.04) mg/dL Est GFR (CKD-EPI)AfAm >90 (>60 ml/min/1.73 sqM) Est GFR (CKD-EPI)NonAf >90 (>60 ml/min/1.73 sqM) Glucose 206 H (74-99) mg/dL Calcium 9.4 (8.4-10.2) mg/dL Total Bilirubin 0.5 (0.2-1.3) mg/dL AST 40 H (14-36) U/L ALT 58 H (9-52) U/L Alkaline Phosphatase 89 (38-126) U/L Total Creatine Kinase 34 (30-135) U/L CK-MB (CK-2) 1.7 (0.0-2.4) ng/mL CK-MB (CK-2) Rel Index 5.0 Troponin I <0.012 (0.000-0.034) ng/mL NT-Pro-B Natriuret Pep pg/mL Total Protein 6.4 (6.3-8.2) g/dL Albumin 3.7 (3.5-5.0) g/dL 03/31/18 03/31/18 03/31/18 Range/Units 07:05 07:05 07:05 WBC (3.8-10.6) k/uL RBC (3.80-5.40) m/uL Hgb (11.4-16.0) gm/dL Hct (34.0-46.0) % MCV (80.0-100.0) fL MCH (25.0-35.0) pg MCHC (31.0-37.0) g/dL RDW (11.5-15.5) % Plt Count (150-450) k/uL Neutrophils % % Lymphocytes % % Monocytes % % Eosinophils % % Basophils % % Neutrophils # (1.3-7.7) k/uL Lymphocytes # (1.0-4.8) k/uL Monocytes # (0-1.0) k/uL Eosinophils # (0-0.7) k/uL Basophils # (0-0.2) k/uL PT 10.3 (9.0-12.0) sec INR 1.1 (<1.2) APTT 22.3 (22.0-30.0) sec D-Dimer 1.92 H (<0.60) mg/L FEU Sodium (137-145) mmol/L Potassium (3.5-5.1) mmol/L Chloride (98-107) mmol/L Carbon Dioxide (22-30) mmol/L Anion Gap mmol/L BUN (7-17) mg/dL Creatinine (0.52-1.04) mg/dL Est GFR (CKD-EPI)AfAm (>60 ml/min/1.73 sqM) Est GFR (CKD-EPI)NonAf (>60 ml/min/1.73 sqM) Glucose (74-99) mg/dL Calcium (8.4-10.2) mg/dL Total Bilirubin (0.2-1.3) mg/dL AST (14-36) U/L ALT (9-52) U/L Alkaline Phosphatase (38-126) U/L Total Creatine Kinase (30-135) U/L CK-MB (CK-2) (0.0-2.4) ng/mL CK-MB (CK-2) Rel Index Troponin I (0.000-0.034) ng/mL NT-Pro-B Natriuret Pep 3230 pg/mL Total Protein (6.3-8.2) g/dL Albumin (3.5-5.0) g/dL Disposition Clinical Impression: Congestive heart failure, Diverticulitis Disposition: ADMITTED IP TO THIS HOSP Is patient prescribed a controlled substance at d/c from ED?: No Referrals: Farrukh Kebede MD [Primary Care Provider] - 1-2 days Decision Time: 10:54
[2018-03-31 07:44] LABS: Basophils % (A) 0 %; Eosinophils # (A) 0.4 k/uL (0-0.7); Eosinophils % (A) 4 %; HGB 13.3 gm/dL (11.4-16.0); Lymphocytes # (A) 1.2 k/uL (1.0-4.8); Lymphocytes % (A) 14 %; MCH 28.8 pg (25.0-35.0); MCHC 33.3 g/dL (31.0-37.0); MCV 86.3 fL (80.0-100.0); Mean Platelet Volume 7.1; Monocytes # (A) 0.4 k/uL (0-1.0); Monocytes % (A) 5 %; Neutrophils # (A) 6.3 k/uL (1.3-7.7); Neutrophils % (A) 75 %; Platelet Count 159 k/uL (150-450); RBC 4.63 m/uL (3.80-5.40); RDW 15.7 % (11.5-15.5); WBC 8.4 k/uL (3.8-10.6)
--- NOTE | 2018-03-31 07:44 | XR ---
EXAMINATION TYPE: XR chest 2V DATE OF EXAM: 03/31/2018 COMPARISON: Chest x-ray July 04, 2014 HISTORY: Difficulty in breathing. TECHNIQUE: Frontal and lateral views of the chest are obtained. FINDINGS: There is chronic emphysematous change with scattered parenchymal scarring. There is blunti ng of right lateral costophrenic angle and blunting of bilateral costophrenic angles suggesting small right greater than left pleural effusions and/or pleural thickening. The cardiac silhouette size re lavell enlarged with new single lead pacemaker/AICD terminating in right ventricle. The osseous stru ctures remain demineralized. There are multiple old posterior lateral right rib fractures redemonstra farrah. IMPRESSION: Chronic emphysematous and parenchymal changes along with cardiomegaly with small to tiny right greater than left pleural effusions and/or pleural thickening.
[2018-03-31 07:50] LABS: ALT 58 U/L (9-52); AST 40 U/L (14-36); Albumin 3.7 g/dL (3.5-5.0); Alkaline Phosphatase 89 U/L (38-126); Anion Gap 9 mmol/L; Blood Urea Nitrogen 17 mg/dL (7-17); Calcium 9.4 mg/dL (8.4-10.2); Carbon Dioxide 26 mmol/L (22-30); Chloride 103 mmol/L (98-107); Glucose 206 mg/dL (74-99); Potassium 4.9 mmol/L (3.5-5.1); Sodium 138 mmol/L (137-145); Total Bilirubin 0.5 mg/dL (0.2-1.3); Total Protein 6.4 g/dL (6.3-8.2)
[2018-03-31] MEDS ORDERED: IPRATROPIUM-ALBUTEROL 3 ML NEB INHALATION STA (07:52)
[2018-03-31 07:57] LABS: Creatine Kinase 34 U/L (30-135)
[2018-03-31 07:58] LABS: INR 1.1 (<1.2); Partial Thromboplastin Time 22.3 sec (22.0-30.0); Prothrombin Time 10.3 sec (9.0-12.0)
[2018-03-31 08:10] LABS: Creatine Kinase MB 1.7 ng/mL (0.0-2.4); Troponin I <0.012 ng/mL (0.000-0.034)
--- NOTE | 2018-03-31 10:03 | CT ---
EXAMINATION TYPE: CT angio chest DATE OF EXAM: 03/31/2018 COMPARISON: Chest x-ray same date HISTORY: Shortness of breath CT DLP: 443.2 mGycm Automated exposure control for dose reduction was used. CONTRAST: CTA scan of the thorax is performed with IV Contrast, patient injected with 100 mL of Isovue 370, pul monary embolism protocol. MIP images are created and reviewed. 3D reconstructed images are created on an independent workstation and reviewed. FINDINGS: LUNGS: Interstitial is increased. There are bilateral pleural effusions posteriorly with associated a telectasis. Calcified nodule right upper lobe compatible with old granulomatous disease. Some scatte red groundglass opacity present in the perihilar locations, mild emphysematous changes noted in the u pper lobes. AORTA: No additional significant abnormality is seen. Left atrium appears prominently as does the he art. Aorta not optimally enhanced due to technique. MEDIASTINUM: There is satisfactory enhancement of the pulmonary artery and its branches, there is no CT evidence for pulmonary embolism. Retrocaval pretracheal node mildly enlarged. Small prevascular no skylar are present. Intracardiac defibrillator lead noted, there are coronary artery calcifications. Pul monary artery appears prominently. OTHER: Pneumobilia is suspected. There is a hiatal hernia suspected. Liver shows low attenuation pos sibly due to hepatic steatosis. Reflux of contrast is noted within the hepatic veins and inferior vena cava. Flowing anterior osteoph ytes within the thoracic spine suggest diffuse idiopathic skeletal hyperostosis, there is scoliosis. IMPRESSION: CONGESTIVE HEART FAILURE WITH PLEURAL EFFUSIONS, POSSIBLE PULMONARY ARTERY HYPERTENSION.. Pneumobilia , correlate for history of instrumentation. There is mediastinal adenopathy. Additional findings abov e.
--- NOTE | 2018-03-31 10:13 | CT ---
EXAMINATION TYPE: CT abdomen pelvis w con DATE OF EXAM: 03/31/2018 HISTORY: Left lower quadrant pain. CT DLP: 1426.2mGycm Automated Exposure Control for Dose Reduction was Utilized. CONTRAST: CT scan of the abdomen and pelvis is performed with IV Contrast, patient injected with 100 mL of Isov ue 370. COMPARISON: None. FINDINGS: LUNG BASES: There are small bilateral pleural effusions with associated bibasilar airspace disease th at is linear likely related to atelectasis. At least moderate three-vessel coronary artery calcificat ion is partially seen. LIVER/GB: There is mild intrahepatic biliary ductal dilatation and left-sided pneumobilia. The commo n bile duct is upper limits of normal but overall within normal limits given the patient's age. Scant amount of perihepatic fluid is seen. PANCREAS: Numerous pancreatic parenchymal calcifications are identified with severe pancreatic atroph y and ductal prominence, likely on the basis of chronic pancreatitis. No distinct pancreatic mass is identified. SPLEEN: Few scattered nonspecific too small to accurately characterize hypoattenuated splenic lesions are seen.. ADRENALS: No significant abnormality is seen. KIDNEYS: There is ar 6.3 cm exophytic left renal cyst. Smaller bilateral cystic appearing renal lesio ns are seen in addition to a solid 1.3 cm right upper pole posterior cortical exophytic lesion on ser ies 2 image 36. BOWEL: Anastomotic site is seen in the distal sigmoid colon without dilatation proximal to suggest ob struction. Multiple colonic diverticula are seen with very mild pericolonic fat stranding of the dist al sigmoid colon suggesting mild acute diverticulitis. A large ventral hernia with a wide neck is see n in the inferior right lateral abdomen with a neck measuring approximately 8.5 cm. A few loops of sm all bowel within the mid abdomen and left lower quadrant demonstrate mild small bowel wall thickening that may relate to incomplete distention. No pneumatosis coli or pneumatosis intestinalis are seen. LYMPH NODES: No greater than 1cm abdominal or pelvic lymph nodes are appreciated. OSSEOUS STRUCTURES: There are extensive degenerative changes of the osseous structures with no gross evidence of acute fracture identified.. OTHER: Extensive calcific atheromatous and noncalcific atheromatous changes are seen of the abdominal aorta and its branches. IMPRESSION: 1. Findings suggestive of very mild uncomplicated acute sigmoid diverticulitis and few loops of small bowel thickening in the left lower quadrant and mid abdomen that may be reactive, due to nondistenti on or relate to enteritis. 2. Extensive atheromatous changes of the abdominal aorta and its branches. 3. Left-sided pneumobilia and minimal intrahepatic biliary ductal dilatation of uncertain etiology. C orrelate with clinical history. 4. Sequela chronic pancreatitis with severe pancreatic atrophy. 5. Partially visualized small pleural effusions and associated bibasilar atelectasis.
[2018-03-31] MEDS ORDERED: ASPIRIN 325 MG TAB PO STA (10:57)
[2018-03-31] MEDS ORDERED: metroNIDAZOLE-NS PMX 500 MG in SALINE 1 100ML.BAG IVPB STA (11:06)
[2018-03-31] MEDS ORDERED: FUROSEMIDE 10 MG/ML 4 ML VIAL IV STA (11:07)
[2018-03-31] MEDS: NITROGLYCERIN OINT 1 INCH/GM PACKET TOPICAL SCH ×3 (11:32→21:35)
[2018-03-31] MEDS ORDERED: LACTULOSE 20 GM/30 ML CUP PO PRN (11:44)
[2018-03-31] MEDS ORDERED: POLYETHYLENE GLYCOL 3350 17 GM POWD.PACK PO PRN (11:55)
[2018-03-31] MEDS ORDERED: traMADol 50 MG TAB PO PRN (11:55)
--- NOTE | 2018-03-31 12:40 | ECHOF ---
Referral Reason:Heart Failure MEASUREMENTS -------- HEIGHT: 157.5 cm WEIGHT: 78.9 kg BP: 145/72 IVSd: 1.2 cm (0.6 - 1.1) LVIDd: 4.0 cm (3.9 - 5.3) LVPWd: 1.1 cm (0.6 - 1.1) IVSs: 1.4 cm LVIDs: 2.8 cm LVPWs: 1.3 cm LAESV Index (A-L): 45.14 ml/m Ao Diam: 3.6 cm (2.0 - 3.7) AV Cusp: 1.1 cm (1.5 - 2.6) LA Diam: 4.3 cm (2.7 - 3.8) MV E Geovani: 1.02 m/s MV DecT: 182 ms MV A Geovani: 0.45 m/s MV E/A Ratio: 2.28 AV maxP.42 mmHg AV meanP.05 mmHg RAP: 5.00 mmHg RVSP: 51.57 mmHg FINDINGS -------- Sinus rhythm. This was a technically adequate study. The left ventricular size is normal. There is mild concentric left ventricular hypertrophy. There is mild global hypokinesis of LV . Overall left ventricular systolic function is mildly impaired w ith, an EF between 45 - 50 %. The right ventricle is normal in size and function. LA is severely dilated >40 ml/m2 Electronic pacemaker lead seen in the right atrial cavity. RA appears enlarged. There is mild aortic valve sclerosis. There is no evidence of aortic regurgitation. There is mild aortic stenosis present. Peak/mean gradient across the Aortic Valve is 15.42mmHg / 10.05mmHg. The mitral valve leaflets are mildly thickened. Mild mitral annular calcification present. Mild m itral regurgitation is present. [id number] tricuspid regurgitation present. There is mild to moderate pulmonary hypertension. The right ventricular systolic pressure, as measured by Doppler, is 51.57mmHg. The pulmonic valve was not well visualized. The aortic root size is normal. Normal inferior vena cava with normal inspiratory collapse consistent with estimated right atrial pre ssure of 5 mmHg. There is no pericardial effusion. CONCLUSIONS -------- 1. Sinus rhythm. 2. This was a technically adequate study. 3. The left ventricular size is normal. 4. There is mild concentric left ventricular hypertrophy. 5. There is mild global hypokinesis of LV . 6. Overall left ventricular systolic function is mildly impaired with, an EF between 45 - 50 %. 7. LA is severely dilated >40 ml/m2 8. Electronic pacemaker lead seen in the right atrial cavity. 9. RA appears enlarged. 10. There is mild aortic valve sclerosis. 11. There is mild aortic stenosis present. 12. Peak/mean gradient across the Aortic Valve is 15.42mmHg / 10.05mmHg. 13. The mitral valve leaflets are mildly thickened. 14. Mild mitral annular calcification present. 15. Mild mitral regurgitation is present. 16. Ftxs-[id number]-rbcgwjes tricuspid regurgitation present. 17. There is mild to moderate pulmonary hypertension. 18. The right ventricular systolic pressure, as measured by Doppler, is 51.57mmHg. 19. The pulmonic valve was not well visualized. 20. The aortic root size is normal. 21. There is no pericardial effusion. MANAGER FLIGHT: Mohsen Soto RDCS
[2018-03-31 12:41] LABS: Glucose,Whole Blood 232 mg/dL (75-99)
[2018-03-31] MEDS: INSULIN NPH/REG INSULIN 70/30 300 UNIT/3 ML VIAL SQ SCH ×2 (12:42→22:05)
[2018-03-31] MEDS: INSULIN ASPART 100 UNIT/ML 1 ML 10 ML VIAL SQ SCH ×3 (12:43→21:28)
[2018-03-31] MEDS: ACETAMINOPHEN TAB 325 MG TAB PO SCH ×3 (12:44→23:17)
[2018-03-31] MEDS: COLLAGENASE 250 UNIT/GM OINTMENT 30 GM TUBE TOPICAL SCH (12:45)
[2018-03-31] MEDS: GABAPENTIN 100 MG CAP PO SCH ×2 (12:45→19:58)
[2018-03-31] MEDS: PENTOXIFYLLINE 400 MG TABLET.ER PO SCH ×2 (12:46→19:58)
[2018-03-31] MEDS ORDERED: cefTAZidime 1 GM VIAL IVPB SCH (14:00)
--- NOTE | 2018-03-31 14:10 | P.HPIM ---
History of Present Illness Patient is a pleasant 82-year-old female [facility] shortness of breath has been going on for about 3 days, doesn't have any previous history of congestive heart failure (history is not clear) does have history of atrial fibrillation not on anti-correlation because of her multiple falls in the past patient was here in the hospital was treated for acute osteomyelitis about couple weeks ago was [facility] on Ceptazidime, patient was comparing of orthopnea and does have paroxysmal nocturnal dyspnea last episode 2 days ago. Minimally elevated JVD and exam highly elevated BNP of 3000. I do not have any echocardiogram available at this time. Patient is on Cardizem which will risk and because of possibly of congestive heart failure. Patient does have bilateral pleural effusions on the CAT scan of the chest without any pulmonary embolism or pneumonic infiltrate. Patient was comparing of abdominal pain because of which the abdominal CAT scan was opted as well for a year which showed some very mild diverticulitis patient is already on a cephalosporin metronidazole was added which I believe is appropriate and patient does have a stage I sacral decubitus ulcer for which we' ll use Santyl cream and a barrier cream. Patient does have severe peripheral vascular disease and osteo-myelitis of the right great toe. Is comparing of cough without any significant sputum production. Denied any chest pain. Patient EKG showed atrial fibrillation controlled heart rate Review of Systems REVIEW OF SYSTEMS: CONSTITUTIONAL: No fever, no malaise, no fatigue. HEENT: No recent visual problems or hearing problems. Denied any sore throat. CARDIOVASCULAR: No chest pain, orthopnea, PND, no palpitations, no syncope. PULMONARY: No shortness of breath, no cough, no hemoptysis. GASTROINTESTINAL: No diarrhea, no nausea, no vomiting, no abdominal pain. Normoactive bowel sounds. NEUROLOGICAL: No headaches, no weakness, no numbness. HEMATOLOGICAL: Denies any bleeding or petechiae. GENITOURINARY: Denies any burning micturition, frequency, or urgency. MUSCULOSKELETAL/RHEUMATOLOGICAL: Denies any joint pain, swelling, or any muscle pain. ENDOCRINE: Denies any polyuria or polydipsia. The rest of the 14-point review of systems is negative. Past Medical History Past Medical History: Atrial Fibrillation, Coronary Artery Disease (CAD), Cancer , Diabetes Mellitus, GERD/Reflux, Hearing Disorder / Deafness, Hyperlipidemia, Hypertension, Osteoarthritis (OA) Additional Past Medical History / Comment(s): diverticultis, rt arm fx, cervical cancer, pancreatitis, right foot infection, gall stones and removal, FALL/fx coccyx 08-29-17, CONSTIPATION, PAD, RT FOOT (great toe) WOUND HAS BEEN GOING TO THE [facility] , [place] History of Any Multi-Drug Resistant Organisms: None Reported Date of last positivie culture/infection: None MDRO Source:: None Past Surgical History: AICD, Bowel Resection, Cholecystectomy, Heart Catheterization, Hysterectomy, Orthopedic Surgery Additional Past Surgical History / Comment(s): Internal defibulator 09-15-17, LT ROTATOR CUFF X2, BUNIONECTOMY JACQUELINE,, JACQUELINE BREAST LUMPECTOMIES-BOTH NEG,, X2 ERCP, RT HAND SX PINS PLACED-BUT SINCE REMOVED, CATARACTS. 12/01/17 picc line inserted- since removed Past Anesthesia/Blood Transfusion Reactions: No Reported Reaction Type of Cardiac Device: AICD Device Placement Date:: 09-15-17 Past Psychological History: No Psychological Hx Reported Smoking Status: Former smoker Past Alcohol Use History: None Reported Past Drug Use History: None Reported - Past Family History Mother Family Medical History: No Reported History Additional Family Medical History / Comment(s): HEART DISEASE Father Family Medical History: Coronary Artery Disease (CAD), Diabetes Mellitus Medications and Allergies Home Medications Medication Instructions Recorded Confirmed Type Cholecalciferol [Vitamin D3] 1,000 unit PO DAILY@0600 12/13/16 03/31/18 History Pentoxifylline 400 mg PO TID@,,12/13/16 03/31/18 History Sertraline HCl [Zoloft] 25 mg PO DAILY 12/13/16 03/31/18 History Diltiazem Oral [Cardizem*] 30 mg PO TID@,,03/21/17 03/31/18 History Insulin NPH/Reg Insulin 70/30 25 unit SQ HS 11/10/17 03/31/18 History [humuLIN 70/30 VIAL] Lisinopril-Hctz 20-25 mg 1 tab PO DAILY 11/10/17 03/31/18 History [Zestoretic 20-25] Vit C/E/Zn/Coppr/Lutein/Zeaxan 1 cap PO DAILY@0600 11/10/17 03/31/18 History [Preservision Areds 2 Softgel] metFORMIN HCL 1,000 mg PO BID@0900,1700 11/10/17 03/31/18 History Lactulose [Cephulac] 20 gm PO DAILY PRN ml 11/16/17 03/31/18 Rx Omeprazole [PriLOSEC] 20 mg PO DAILY@0600 12/08/17 03/31/18 History Metoprolol Succinate [Toprol XL] 75 mg PO BID 12/12/17 03/31/18 History Acetaminophen Tab [Tylenol] 650 mg PO Q6HR tab 03/24/18 03/31/18 Rx Gabapentin [Neurontin] 200 mg PO TID@, #9 cap 03/24/18 03/31/18 Rx Naproxen [Naprosyn] 250 mg PO TID-W/MEALS tab 03/24/18 03/31/18 Rx Collagenase [Santyl] 1 applic TOPICAL DAILY PRN 03/31/18 03/31/18 History Collagenase [Santyl] 1 applic TOPICAL HS 03/31/18 03/31/18 History Insulin NPH/Reg Insulin 70/30 30 unit SQ QAM 03/31/18 03/31/18 History [humuLIN 70/30 VIAL] Senna-S 1 tab PO BID@0900,1700 03/31/18 03/31/18 History Sodium Chloride 0.9% Irrigatio 10 ml IRRIGATION TID@0600,1400,2200 03/31/18 History [Saline 0.9% Irrigation] Therahoney Gel 1 applic TOPICAL DAILY PRN 03/31/18 03/31/18 History Therahoney Gel 1 applic TOPICAL HS 03/31/18 03/31/18 History Triad Wound Paste 1 applic TOPICAL BID 03/31/18 03/31/18 History cefTAZidime [Fortaz] 2 gm IVPB TID@0600,1400,2200 03/31/18 03/31/18 History Allergies Allergy/AdvReac Type Severity Reaction Status Date / Time levofloxacin [From Levaquin] Allergy Mild Rash/Hives Verified 03/31/18 07:16 morphine Allergy Rapid Verified 03/31/18 07:16 Heart Rate Physical Exam Vitals: Vital Signs Temp Pulse Resp BP Pulse Ox 03/31/18 13:26 97.6 F 55 L 18 174/72 98 03/31/18 10:00 91 20 145/72 96 03/31/18 09:10 99 18 147/104 95 03/31/18 08:44 87 03/31/18 08:35 87 03/31/18 06:57 98.6 F 90 26 H 178/83 90 L Intake and Output 03/30/18 03/31/18 03/31/18 22:59 06:59 14:59 Other: Weight 79.379 kg PHYSICAL EXAMINATION: GENERAL: The patient is alert and oriented x3, not in any acute distress. Well developed, well nourished. HEENT: Pupils are round and equally reacting to light. EOMI. No scleral icterus. No conjunctival pallor. Normocephalic, atraumatic. No pharyngeal erythema. No thyromegaly. CARDIOVASCULAR: S1 and S2 present. No murmurs, rubs, or gallops. Patient does have elevated JVD but minimal. Irregularly irregular rhythm rate controlled PULMONARY: Chest is clear to auscultation, no wheezing or crackles. ABDOMEN: Soft, nontender, nondistended, normoactive bowel sounds. No palpable organomegaly. MUSCULOSKELETAL: No joint swelling or deformity. EXTREMITIES: No cyanosis, clubbing, or pedal edema. NEUROLOGICAL: Gross neurological examination did not reveal any focal deficits. SKIN: No rashes. Results CBC & Chem 7: 03/31/18 07:05 03/31/18 07:05 Labs: Abnormal Lab Results - Last 24 Hours (Table) 03/31/18 03/31/18 03/31/18 Range/Units 07:05 07:05 07:05 RDW 15.7 H (11.5-15.5) % D-Dimer 1.92 H (<0.60) mg/L FEU Creatinine 0.50 L (0.52-1.04) mg/dL Glucose 206 H (74-99) mg/dL POC Glucose (mg/dL) (75-99) mg/dL AST 40 H (14-36) U/L ALT 58 H (9-52) U/L 03/31/18 Range/Units 12:37 RDW (11.5-15.5) % D-Dimer (<0.60) mg/L FEU Creatinine (0.52-1.04) mg/dL Glucose (74-99) mg/dL POC Glucose (mg/dL) 232 H (75-99) mg/dL AST (14-36) U/L ALT (9-52) U/L Assessment and Plan Plan: Possible congestive heart failure exacerbation and do not have any echo cardiac gram available unsure whether patient has systolic dysfunction and diastolic dysfunction echocardiogram will be obtained patient will be continued on Lasix cardiology will be consulted Cardizem will be discontinue for now -History of atrial fibrillation appears to be chronic A. fib patient appears to be in A. fib but rate controlled Not on anti-correlation at this time because of her falls in the past continue with beta sandra -Possible mild diverticulitis of the sigmoid colon for which patient is being continued on metronidazole and cephalosporin as mentioned above. -Right toe osteomyelitis for which patient is an above-mentioned antibiotics -Stage I sacral decubitus ulcer barier cream and santyl -Type 2 diabetes mellitus hold off metformin patient regarding on home regimen along with sliding scale insulin -Gastro-dysphagia reflux disease -Peripheral vascular disease: Continue with pentoxifylline -Depression continue with sertraline
[2018-03-31 16:38] LABS: Glucose,Whole Blood 221 mg/dL (75-99)
[2018-03-31] MEDS: FUROSEMIDE 10 MG/ML 4 ML VIAL IV SCH ×2 (16:56→23:17)
--- NOTE | 2018-03-31 18:28 | P.CRDCN ---
History of Present Illness Consult date: 03/31/18 Chief complaint: Shortness of breath History of present illness: This is a pleasant 82-year-old female patient who was transferred from an extended care facility to the hospital for further evaluation of shortness of breath. The patient herself is a poor historian and I spoke with the patient and her family in the emergency room. The patient does follow with a screen room operator at [facility]. The patient does have an extensive cardiac history consistent off coronary artery disease where she underwent about a year ago a heart catheterization and that revealed extensive triple-vessel coronary artery disease where the patient was told by her screen room operator that she is an amenable to any kind of revascularization and she was treated medically. Beside that she does have history of congestive heart failure, chronic atrial fibrillation for some reason she is not on any oral anticoagulation, diabetes, hypertension, and dyslipidemia. Currently she has been treated for osteomyelitis of the right foot and bilateral lower extremities ulcers related to severe underlying peripheral tear disease has been treated by Dr. Khan. She was receiving an antibiotic at [facility]. For the last several days she has been experiencing progressive exertional dyspnea and orthopnea. She also was experiencing cough with some sputum production. No fever and no chills. No chest pain or chest discomfort, dizziness or lightheadedness, feeling of heart racing or fluttering, or syncope. The patient underwent a d-dimer and came in to be slightly elevated and because of that she underwent a computed tomography scan of the chest and that revealed no PE but it did show bilateral pulmonary vascular congestions and bilateral pleural effusion. The BNP came in to be around 3000. The echocardiogram revealed mildly impaired LV function with an ejection fraction of about 45% with mild LVH and mild aortic stenosis. The chest x-ray showed bilateral pleural effusion and pleural thickening. The troponin was checked and came in to be unremarkable. Beside that the patient was experiencing some abdominal discomfort and she underwent a computed tomography scan of the abdomen which showed very mild diverticulitis which seems to be known to the patient from before. On physical examination she does have bilateral crackles throughout the lung alexander and also she does have bilateral lower extremities edema. The patient was admitted to the hospital to be started on IV Lasix at 40 mg twice a day. Her creatinine is within normal limits. Past Medical History Past Medical History: Atrial Fibrillation, Coronary Artery Disease (CAD), Cancer , Diabetes Mellitus, GERD/Reflux, Hearing Disorder / Deafness, Hyperlipidemia, Hypertension, Osteoarthritis (OA) Additional Past Medical History / Comment(s): diverticultis, rt arm fx, cervical cancer, pancreatitis, right foot infection, gall stones and removal, FALL/fx coccyx 08-29-17, CONSTIPATION, PAD, RT FOOT (great toe) WOUND HAS BEEN GOING TO THE [facility] , [place] History of Any Multi-Drug Resistant Organisms: None Reported Date of last positivie culture/infection: None MDRO Source:: None Past Surgical History: AICD, Bowel Resection, Cholecystectomy, Heart Catheterization, Hysterectomy, Orthopedic Surgery Additional Past Surgical History / Comment(s): Internal defibulator 09-15-17, LT ROTATOR CUFF X2, BUNIONECTOMY JACQUELINE,, JACQUELINE BREAST LUMPECTOMIES-BOTH NEG,, X2 ERCP, RT HAND SX PINS PLACED-BUT SINCE REMOVED, CATARACTS. 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 also has a walker, glucometer and monitor for the aicd. Smoking Status: Former smoker Past Alcohol Use History: None Reported Additional Past Alcohol Use History / Comment(s): Smoked sporadically from 1964 till 1967 Past Drug Use History: None Reported - Past Family History Mother Family Medical History: No Reported History Additional Family Medical History / Comment(s): HEART DISEASE Father Family Medical History: Coronary Artery Disease (CAD), Diabetes Mellitus Medications and Allergies Home Medications Medication Instructions Recorded Confirmed Type Cholecalciferol [Vitamin D3] 1,000 unit PO DAILY@0600 12/13/16 03/31/18 History Pentoxifylline 400 mg PO TID@,,12/13/16 03/31/18 History Sertraline HCl [Zoloft] 25 mg PO DAILY 12/13/16 03/31/18 History Diltiazem Oral [Cardizem*] 30 mg PO TID@,,03/21/17 03/31/18 History Insulin NPH/Reg Insulin 70/30 25 unit SQ HS 11/10/17 03/31/18 History [humuLIN 70/30 VIAL] Lisinopril-Hctz 20-25 mg 1 tab PO DAILY 11/10/17 03/31/18 History [Zestoretic 20-25] Vit C/E/Zn/Coppr/Lutein/Zeaxan 1 cap PO DAILY@0600 11/10/17 03/31/18 History [Preservision Areds 2 Softgel] metFORMIN HCL 1,000 mg PO BID@0900,1700 11/10/17 03/31/18 History Lactulose [Cephulac] 20 gm PO DAILY PRN ml 11/16/17 03/31/18 Rx Omeprazole [PriLOSEC] 20 mg PO DAILY@0600 12/08/17 03/31/18 History Metoprolol Succinate [Toprol XL] 75 mg PO BID 12/12/17 03/31/18 History Acetaminophen Tab [Tylenol] 650 mg PO Q6HR tab 03/24/18 03/31/18 Rx Gabapentin [Neurontin] 200 mg PO TID@ #9 cap 03/24/18 03/31/18 Rx Naproxen [Naprosyn] 250 mg PO TID-W/MEALS tab 03/24/18 03/31/18 Rx Collagenase [Santyl] 1 applic TOPICAL DAILY PRN 03/31/18 03/31/18 History Collagenase [Santyl] 1 applic TOPICAL HS 03/31/18 03/31/18 History Insulin NPH/Reg Insulin 70/30 30 unit SQ QAM 03/31/18 03/31/18 History [humuLIN 70/30 VIAL] Senna-S 1 tab PO BID@0900,1700 03/31/18 03/31/18 History Sodium Chloride 0.9% Irrigatio 10 ml IRRIGATION TID@0600,1400,2200 03/31/18 History [Saline 0.9% Irrigation] Therahoney Gel 1 applic TOPICAL DAILY PRN 03/31/18 03/31/18 History Therahoney Gel 1 applic TOPICAL HS 03/31/18 03/31/18 History Triad Wound Paste 1 applic TOPICAL BID 03/31/18 03/31/18 History cefTAZidime [Fortaz] 2 gm IVPB TID@0600,1400,2200 03/31/18 03/31/18 History Allergies Allergy/AdvReac Type Severity Reaction Status Date / Time levofloxacin [From Levaquin] Allergy Mild Rash/Hives Verified 03/31/18 07:16 morphine Allergy Rapid Verified 03/31/18 07:16 Heart Rate Physical Exam Vitals: Vital Signs Temp Pulse Pulse Pulse Resp BP BP 03/31/18 17:45 97.4 F L 88 16 135/69 03/31/18 15:20 97.5 F L 71 71 16 128/59 03/31/18 14:49 97.6 F 83 16 143/65 03/31/18 13:26 97.6 F 55 L 18 174/72 03/31/18 10:00 91 20 145/72 03/31/18 09:10 99 18 147/104 03/31/18 08:44 87 03/31/18 08:35 87 03/31/18 06:57 98.6 F 90 26 H 178/83 Pulse Ox 03/31/18 17:45 97 03/31/18 15:20 92 L 03/31/18 14:49 98 03/31/18 13:26 98 03/31/18 10:00 96 03/31/18 09:10 95 03/31/18 08:44 03/31/18 08:35 03/31/18 06:57 90 L Intake and Output 03/31/18 03/31/18 03/31/18 06:59 14:59 22:59 Output Total 1400 Balance -1400 Output: Urine 1400 Other: Weight 79.379 kg - Constitutional General appearance: no acute distress - Respiratory Respiratory: bilateral: rales - Cardiovascular Rhythm: irregularly irregular Heart sounds: normal: S1, S2 Results 03/31/18 07:05 03/31/18 07:05 Cardiac Enzymes 03/31/18 03/31/18 Range/Units 07:05 07:05 AST 40 H (14-36) U/L CK-MB (CK-2) 1.7 (0.0-2.4) ng/mL Troponin I <0.012 (0.000-0.034) ng/mL Coagulation 03/31/18 Range/Units 07:05 PT 10.3 (9.0-12.0) sec APTT 22.3 (22.0-30.0) sec CBC 03/31/18 Range/Units 07:05 WBC 8.4 (3.8-10.6) k/uL RBC 4.63 (3.80-5.40) m/uL Hgb 13.3 (11.4-16.0) gm/dL Hct 40.0 (34.0-46.0) % Plt Count 159 (150-450) k/uL Comprehensive Metabolic Panel 03/31/18 Range/Units 07:05 Sodium 138 (137-145) mmol/L Potassium 4.9 (3.5-5.1) mmol/L Chloride 103 (98-107) mmol/L Carbon Dioxide 26 (22-30) mmol/L BUN 17 (7-17) mg/dL Creatinine 0.50 L (0.52-1.04) mg/dL Glucose 206 H (74-99) mg/dL Calcium 9.4 (8.4-10.2) mg/dL AST 40 H (14-36) U/L ALT 58 H (9-52) U/L Alkaline Phosphatase 89 (38-126) U/L Total Protein 6.4 (6.3-8.2) g/dL Albumin 3.7 (3.5-5.0) g/dL Current Medications Generic Name Dose Route Start Last Admin Trade Name Freq PRN Reason Stop Dose Admin Acetaminophen 650 mg 03/31/18 12:00 03/31/18 16:55 Tylenol Tab PO 650 mg Q6HR KEVEN Administration Aspirin 325 mg 04/01/18 09:00 Aspirin PO DAILY KEVEN Collagenase 1 applic 03/31/18 12:00 03/31/18 12:45 Santyl TOPICAL 1 applic DAILY KEVEN Administration Furosemide 40 mg 03/31/18 16:00 03/31/18 16:56 Lasix IV 40 mg Q8H KEVEN Administration Gabapentin 200 mg 03/31/18 13:00 03/31/18 12:45 Neurontin PO 200 mg TID@,, KEVEN Administration Metronidazole 500 mg/ IV 100 mls @ 100 mls/hr 03/31/18 16:00 Solution IVPB Q8HR KEVEN Ceftazidime 2 gm/ Sodium 100 mls @ 100 mls/hr 03/31/18 14:00 03/31/18 14:47 Chloride IVPB 100 mls/hr 0600,1400,2200 KEVEN Administration Insulin Aspart 0 unit 03/31/18 12:30 03/31/18 16:56 Novolog SQ 3 unit ACHS [facility] Administration Protocol Insulin Human Isoph/Insulin Regular 25 unit 03/31/18 21:00 Humulin 70/30 Vial SQ HS KEVEN Insulin Human Isoph/Insulin Regular 30 unit 03/31/18 11:45 03/31/18 12:42 Humulin 70/30 Vial SQ 30 unit QAM KEVEN Administration Lactulose 20 gm 03/31/18 11:44 Cephulac PO DAILY PRN Constipation Metoprolol Succinate 75 mg 03/31/18 21:00 Toprol Xl PO BID [facility] Nitroglycerin 1 inch 03/31/18 13:00 03/31/18 16:56 Nitro-Bid Oint TOPICAL 1 inch QID [facility] Administration Pantoprazole Sodium 40 mg 04/01/18 06:00 Protonix PO DAILY@0600 [facility] Pentoxifylline 400 mg 03/31/18 13:00 03/31/18 12:46 Trental PO 400 mg TID@, [facility] Administration Polyethylene Glycol 17 gm 03/31/18 11:55 Miralax PO DAILY PRN Constipation Sertraline HCl 25 mg 04/01/18 09:00 Zoloft PO DAILY [facility] Sodium Chloride 10 ml 03/31/18 21:00 Saline Flush IV BID [facility] Tramadol HCl 50 mg 03/31/18 11:55 Ultram PO QID PRN Pain/Discomfort Intake and Output 03/31/18 03/31/18 03/31/18 06:59 14:59 22:59 Output Total 1400 Balance -1400 Output: Urine 1400 Other: Weight 79.379 kg 03/31/18 07:05 03/31/18 07:05 Assessment and Plan Assessment: Assessment #1 congestive heart failure exacerbation secondary to systolic dysfunction. Acute on chronic. #2 severe underlying coronary artery disease, according to the patient's family #3 mild ischemic cardiomyopathy with an EF of 45% #4 chronic atrial fibrillation with controlled heart rate #5 severe peripheral arterial disease/critical limb ischemia #6 multiple comorbid conditions including hypertension and dyslipidemia Plan #1 continue the current dose of Lasix IV at 40 mg twice a day #2 continue monitor the kidney function and electrolytes #3 monitor the input and output and weight daily #4 restart the patient on metoprolol to keep the A. fib controlled #5 further investigation to see why the patient is not on any oral anticoagulation. Rule out any history of GI bleeding #6 acute coronary syndrome to be ruled out #7 follow-up with the patient. Thank you for allowing us participate in her care and we will continue following up with the patient.
[2018-03-31] MEDS: metroNIDAZOLE-NS PMX 500 MG in SALINE 1 100ML.BAG IVPB SCH ×2 (19:57→23:17)
[2018-03-31] MEDS: METOPROLOL SUCCINATE (ER) 25 MG TAB.ER.24H PO SCH (19:58)
[2018-03-31 21:24] LABS: Glucose,Whole Blood 92 mg/dL (75-99)
[2018-04-01] MEDS: PANTOPRAZOLE 40 MG TABLET PO SCH (06:00)
[2018-04-01] MEDS: ACETAMINOPHEN TAB 325 MG TAB PO SCH ×4 (06:00→23:05)
[2018-04-01 06:20] LABS: Glucose,Whole Blood 72 mg/dL (75-99)
[2018-04-01] MEDS: INSULIN ASPART 100 UNIT/ML 1 ML 10 ML VIAL SQ SCH ×4 (06:21→20:52)
[2018-04-01 07:01] LABS: Anion Gap 5 mmol/L; Blood Urea Nitrogen 18 mg/dL (7-17); Carbon Dioxide 35 mmol/L (22-30); Chloride 101 mmol/L (98-107); Glucose 63 mg/dL (74-99); Potassium 3.6 mmol/L (3.5-5.1); Sodium 141 mmol/L (137-145)
[2018-04-01] MEDS: SERTRALINE 25 MG TAB PO SCH (08:07)
[2018-04-01] MEDS: PENTOXIFYLLINE 400 MG TABLET.ER PO SCH ×3 (08:07→20:32)
[2018-04-01] MEDS: FUROSEMIDE 10 MG/ML 4 ML VIAL IV SCH ×3 (08:07→23:04)
[2018-04-01] MEDS: INSULIN NPH/REG INSULIN 70/30 300 UNIT/3 ML VIAL SQ SCH ×2 (08:07→20:52)
[2018-04-01] MEDS: GABAPENTIN 100 MG CAP PO SCH ×3 (08:07→20:32)
[2018-04-01] MEDS: METOPROLOL SUCCINATE (ER) 25 MG TAB.ER.24H PO SCH ×2 (08:07→20:32)
[2018-04-01] MEDS: ASPIRIN 325 MG TAB PO SCH (08:07)
[2018-04-01] MEDS: COLLAGENASE 250 UNIT/GM OINTMENT 30 GM TUBE TOPICAL SCH (08:09)
[2018-04-01] MEDS: NITROGLYCERIN OINT 1 INCH/GM PACKET TOPICAL SCH ×4 (08:10→20:32)
[2018-04-01] MEDS: metroNIDAZOLE-NS PMX 500 MG in SALINE 1 100ML.BAG IVPB SCH ×3 (08:17→23:04)
[2018-04-01 11:33] LABS: Glucose,Whole Blood 166 mg/dL (75-99)
[2018-04-01 12:36] VITALS: BMI 32.0
--- NOTE | 2018-04-01 14:46 | P.PN ---
Subjective Progress Note Date: 04/01/18 This is a pleasant 82-year-old female patient who was transferred from an extended care facility to the hospital for further evaluation of shortness of breath. The patient herself is a poor historian and I spoke with the patient and her family in the emergency room. The patient does follow with a cook night at [facility]. The patient does have an extensive cardiac history consistent off coronary artery disease where she underwent about a year ago a heart catheterization and that revealed extensive triple-vessel coronary artery disease where the patient was told by her cook night that she is an amenable to any kind of revascularization and she was treated medically. Beside that she does have history of congestive heart failure, chronic atrial fibrillation for some reason she is not on any oral anticoagulation, diabetes, hypertension, and dyslipidemia. Currently she has been treated for osteomyelitis of the right foot and bilateral lower extremities ulcers related to severe underlying peripheral tear disease has been treated by Dr. Khan. Patient has been diuresing with IV Lasix, overall feeling much better. Sodium 141, potassium 3.6, BUN 18, creatinine 0.5. Objective - Vital Signs Vital signs: Vital Signs Temp 97.8 F 04/01/18 12:00 Pulse 80 04/01/18 12:00 Resp 18 04/01/18 12:00 BP 136/63 04/01/18 12:00 Pulse Ox 97 04/01/18 12:00 Intake & Output 03/31/18 04/01/18 04/01/18 18:59 06:59 18:59 Intake Total 500 240 Output Total 1400 3600 800 Balance -1400 -3100 -560 Weight 79.4 kg 79.4 kg Intake: Intake, IV Titration 200 Amount cefTAZidime 2 gm In 100 Sodium Chloride 0.9% 100 ml @ 100 mls/hr IVPB 0600 ,1400,2200 [facility] Rx#: [id number] metroNIDAZOLE-NS PMX 500 100 mg In Saline 1 100ml.bag @ 100 mls/hr IVPB ONCE STA Rx#:[id number] Oral 300 240 Output: Urine 1400 3600 800 Other: Voiding Method Bedside Commode - Exam GENERAL: The patient is alert and oriented x3, not in any acute distress. Well developed, well nourished. HEENT: Pupils are round and equally reacting to light. EOMI. No scleral icterus. No conjunctival pallor. Normocephalic, atraumatic. No pharyngeal erythema. No thyromegaly. CARDIOVASCULAR: S1 and S2 present. No murmurs, rubs, or gallops. Patient does have elevated JVD but minimal. Irregularly irregular rhythm rate controlled PULMONARY: Chest is clear to auscultation, no wheezing or crackles. ABDOMEN: Soft, nontender, nondistended, normoactive bowel sounds. No palpable organomegaly. MUSCULOSKELETAL: No joint swelling or deformity. EXTREMITIES: No cyanosis, clubbing, or pedal edema. NEUROLOGICAL: Gross neurological examination did not reveal any focal deficits. SKIN: No rashes. - Labs CBC & Chem 7: 03/31/18 07:05 04/01/18 06:17 Labs: Abnormal Lab Results - Last 24 Hours (Table) 03/31/18 04/01/18 04/01/18 Range/Units 16:27 06:17 06:19 Carbon Dioxide 35 H (22-30) mmol/L BUN 18 H (7-17) mg/dL Glucose 63 L (74-99) mg/dL POC Glucose (mg/dL) 221 H 72 L (75-99) mg/dL 04/01/18 Range/Units 11:31 Carbon Dioxide (22-30) mmol/L BUN (7-17) mg/dL Glucose (74-99) mg/dL POC Glucose (mg/dL) 166 H (75-99) mg/dL Assessment and Plan Plan: Assessment #1 congestive heart failure exacerbation secondary to systolic dysfunction. Acute on chronic. #2 severe underlying coronary artery disease, according to the patient's family #3 mild ischemic cardiomyopathy with an EF of 45% #4 chronic atrial fibrillation with controlled heart rate #5 severe peripheral arterial disease/critical limb ischemia #6 multiple comorbid conditions including hypertension and dyslipidemia Plan From cardiology's perspective, we'll continue current dose of IV Lasix. Continue to monitor renal function and electrolytes. Monitor intake and output along with daily weights. DNP note has been reviewed, I agree with a documented findings and plan of care. Patient was seen and examined.
--- NOTE | 2018-04-01 16:13 | P.PN ---
Subjective The patient is admitted for can start failure exacerbation patient appears to have ejection fraction of 45% patient is feeling much better today saturating at 97% on 2 L of oxygen. Patient doesn't use any onset at home patient does have history of atrial fibrillation fairly rate controlled now patient is still having some soreness in the abdomen patient is also being treated for diverticulitis. Patient is on ceftazidime for osteomyelitis and metronidazole was added because of the diverticulitis. Constitutional: Denied any fatigue denied any fever. Cardio vascular: denied any chest pain, palpitations Gastrointestinal mentioned in the goal history Pulmonary: Denied any shortness of breath cough Neurologic denied any new focal deficits Objective - Vital Signs Vital signs: Vital Signs Temp 97.9 F 04/01/18 15:37 Pulse 87 04/01/18 15:37 Resp 18 04/01/18 15:37 BP 134/60 04/01/18 15:37 Pulse Ox 92 L 04/01/18 15:37 Intake & Output 03/31/18 04/01/18 04/01/18 18:59 06:59 18:59 Intake Total 500 480 Output Total 1400 3600 800 Balance -1400 -3100 -320 Weight 79.4 kg 79.4 kg Intake: Intake, IV Titration 200 Amount cefTAZidime 2 gm In 100 Sodium Chloride 0.9% 100 ml @ 100 mls/hr IVPB 0600 ,1400,2200 [facility] Rx#: [id number] metroNIDAZOLE-NS PMX 500 100 mg In Saline 1 100ml.bag @ 100 mls/hr IVPB ONCE STA Rx#:[id number] Oral 300 480 Output: Urine 1400 3600 800 Other: Voiding Method Bedside Commode - Exam PHYSICAL EXAMINATION: GENERAL: The patient is alert and oriented x3, not in any acute distress. Well developed, well nourished. HEENT: Pupils are round and equally reacting to light. EOMI. No scleral icterus. No conjunctival pallor. Normocephalic, atraumatic. No pharyngeal erythema. No thyromegaly. CARDIOVASCULAR: S1 and S2 present. No murmurs, rubs, or gallops. PULMONARY: Chest is clear to auscultation, no wheezing or crackles. ABDOMEN: Soft, nontender, nondistended, normoactive bowel sounds. No palpable organomegaly. MUSCULOSKELETAL: No joint swelling or deformity. EXTREMITIES: No cyanosis, clubbing, or pedal edema. NEUROLOGICAL: Gross neurological examination did not reveal any focal deficits. SKIN: No rashes. - Labs CBC & Chem 7: 03/31/18 07:05 04/01/18 06:17 Labs: Abnormal Lab Results - Last 24 Hours (Table) 03/31/18 04/01/18 04/01/18 Range/Units 16:27 06:17 06:19 Carbon Dioxide 35 H (22-30) mmol/L BUN 18 H (7-17) mg/dL Glucose 63 L (74-99) mg/dL POC Glucose (mg/dL) 221 H 72 L (75-99) mg/dL 04/01/18 Range/Units 11:31 Carbon Dioxide (22-30) mmol/L BUN (7-17) mg/dL Glucose (74-99) mg/dL POC Glucose (mg/dL) 166 H (75-99) mg/dL Assessment and Plan Plan: Possible congestive heart failure exacerbation patient has chronic systolic dysfunction ejection fraction of 45% with acute exacerbation Cardizem will be discontinued and the continue with IV Lasix. -History of atrial fibrillation appears to be chronic A. fib patient appears to be in A. fib but rate controlled Not on anti-relation at this time because of her falls in the past continue with beta sandra -Possible mild diverticulitis of the sigmoid colon for which patient is being continued on metronidazole and cephalosporin as mentioned above. -Right toe osteomyelitis for which patient is an above-mentioned antibiotics -Stage I sacral decubitus ulcer barier cream and santyl -Type 2 diabetes mellitus hold off metformin patient regarding on home regimen along with sliding scale insulin -Gastro-dysphagia reflux disease -Peripheral vascular disease: Continue with pentoxifylline -Depression continue with sertraline
[2018-04-01 16:23] LABS: Glucose,Whole Blood 107 mg/dL (75-99)
[2018-04-01 20:40] LABS: Glucose,Whole Blood 243 mg/dL (75-99)
[2018-04-02 05:59] LABS: Glucose,Whole Blood 82 mg/dL (75-99)
[2018-04-02] MEDS: INSULIN ASPART 100 UNIT/ML 1 ML 10 ML VIAL SQ SCH ×4 (06:15→21:05)
[2018-04-02] MEDS: PANTOPRAZOLE 40 MG TABLET PO SCH (06:17)
[2018-04-02] MEDS: ACETAMINOPHEN TAB 325 MG TAB PO SCH ×4 (06:17→23:14)
[2018-04-02 06:37] LABS: HCT 38.4 % (34.0-46.0); HGB 12.7 gm/dL (11.4-16.0); MCH 28.2 pg (25.0-35.0); MCV 85.5 fL (80.0-100.0); Mean Platelet Volume 7.3; Platelet Count 173 k/uL (150-450); RDW 15.4 % (11.5-15.5); WBC 6.7 k/uL (3.8-10.6)
[2018-04-02 06:47] LABS: Anion Gap 6 mmol/L; Blood Urea Nitrogen 17 mg/dL (7-17); Calcium 9.2 mg/dL (8.4-10.2); Carbon Dioxide 37 mmol/L (22-30); Chloride 99 mmol/L (98-107); Glucose 69 mg/dL (74-99); Potassium 3.8 mmol/L (3.5-5.1); Sodium 142 mmol/L (137-145)
[2018-04-02] MEDS: NITROGLYCERIN OINT 1 INCH/GM PACKET TOPICAL SCH ×2 (08:31→12:13)
[2018-04-02] MEDS: ASPIRIN 325 MG TAB PO SCH (08:34)
[2018-04-02] MEDS: PENTOXIFYLLINE 400 MG TABLET.ER PO SCH ×3 (08:34→19:38)
[2018-04-02] MEDS: metroNIDAZOLE-NS PMX 500 MG in SALINE 1 100ML.BAG IVPB SCH ×3 (08:34→23:14)
[2018-04-02] MEDS: SERTRALINE 25 MG TAB PO SCH (08:34)
[2018-04-02] MEDS: GABAPENTIN 100 MG CAP PO SCH ×3 (08:34→19:37)
[2018-04-02] MEDS: METOPROLOL SUCCINATE (ER) 25 MG TAB.ER.24H PO SCH ×2 (08:34→19:38)
[2018-04-02] MEDS: FUROSEMIDE 10 MG/ML 4 ML VIAL IV SCH (08:35)
[2018-04-02] MEDS: INSULIN NPH/REG INSULIN 70/30 300 UNIT/3 ML VIAL SQ SCH ×2 (08:36→21:05)
[2018-04-02] MEDS: COLLAGENASE 250 UNIT/GM OINTMENT 30 GM TUBE TOPICAL SCH (08:38)
[2018-04-02 11:52] LABS: Glucose,Whole Blood 202 mg/dL (75-99)
--- NOTE | 2018-04-02 13:28 | PN ---
PROGRESS NOTE Ms. Vega is an 82-year-old female who presented with symptoms of dyspnea and abdominal discomfort. She has a known history of coronary disease as well history of congestive heart failure, history of persistent atrial fibrillation, and peripheral vascular disease. Her breathing is better. She is denying any chest pain. She is complaining of abdominal discomfort. She denies any nausea. Overall she is better. She feels better compared with the time she came in. She is lying supine without significant dyspnea. She continues to be on aspirin, furosemide 40 mg IV q.8 hours, insulin, metoprolol succinate 75 mg twice a day, Nitro paste, pentoxifylline and tramadol. PHYSICAL EXAMINATION: Blood pressure 133/60 with a heart rate in the 70s. LUNGS: Clear. Heart irregularly irregular S1, S2. No S3. No rub. ABDOMEN: Soft. Mild tenderness. Positive bowel sounds. No organomegaly. EXTREMITIES: No edema. LAB DATA: Lab data revealed a BUN and creatinine 17 and 0.6, potassium of 3.8, hemoglobin of 12.7. IMPRESSION: 1. Symptoms of congestive heart failure, improved with mildly impaired left ventricular systolic function. 2. Peripheral disease with osteomyelitis. 3. Abdominal discomfort. 4. Hypertension. 5. Coronary artery disease, not felt to be a candidate for intervention. 6. Persistent atrial fibrillation. The patient has not been anticoagulated in the past. The reasons are unclear to me. RECOMMENDATIONS: I will switch her to oral diuretics at this time. Continue rest of medical regimen. Increase her level of activity gradually and depending on her progress, further recommendations will be made. MMODL / IJN: [id number] /
--- NOTE | 2018-04-02 14:59 | P.PN ---
Subjective The patient is admitted for can start failure exacerbation patient appears to have ejection fraction of 45% patient is feeling much better today saturating at 97% on 2 L of oxygen. Patient doesn't use any onset at home patient does have history of atrial fibrillation fairly rate controlled now patient is still having some soreness in the abdomen patient is also being treated for diverticulitis. Patient is on ceftazidime for osteomyelitis and metronidazole was added because of the diverticulitis. 04/02/2018 This pretty status improved significantly patient is saturating well without oxygen, echo cardiac exam is still not available venous Doppler of lower extremity did not show any significant abnormality, patient is being switched to oral Lasix and monitor 1 more night possibly of discharge tomorrow abdominal pain improved Constitutional: Denied any fatigue denied any fever. Cardio vascular: denied any chest pain, palpitations Gastrointestinal mentioned in the goal history Pulmonary: Denied any shortness of breath cough Neurologic denied any new focal deficits Objective - Vital Signs Vital signs: Vital Signs Temp 96.7 F L 04/02/18 11:55 Pulse 72 04/02/18 11:55 Resp 18 04/02/18 11:55 BP 133/64 04/02/18 11:55 Pulse Ox 99 04/02/18 11:55 Intake & Output 04/01/18 04/02/18 04/02/18 18:59 06:59 18:59 Intake Total 702 360 Output Total 800 1900 600 Balance -98 -1900 -240 Weight 79.4 kg 81 kg Intake: Oral 702 360 Output: Urine 800 1900 600 Other: Voiding Method Bedside Commode # Voids 400 - Exam PHYSICAL EXAMINATION: GENERAL: The patient is alert and oriented x3, not in any acute distress. Well developed, well nourished. HEENT: Pupils are round and equally reacting to light. EOMI. No scleral icterus. No conjunctival pallor. Normocephalic, atraumatic. No pharyngeal erythema. No thyromegaly. CARDIOVASCULAR: S1 and S2 present. No murmurs, rubs, or gallops. PULMONARY: Chest is clear to auscultation, no wheezing or crackles. ABDOMEN: Soft, nontender, nondistended, normoactive bowel sounds. No palpable organomegaly. MUSCULOSKELETAL: No joint swelling or deformity. EXTREMITIES: No cyanosis, clubbing, or pedal edema. NEUROLOGICAL: Gross neurological examination did not reveal any focal deficits. SKIN: No rashes. - Labs CBC & Chem 7: 04/02/18 05:58 04/02/18 05:58 Labs: Abnormal Lab Results - Last 24 Hours (Table) 04/01/18 04/01/18 04/02/18 Range/Units 16:17 20:39 05:58 Carbon Dioxide 37 H (22-30) mmol/L Glucose 69 L (74-99) mg/dL POC Glucose (mg/dL) 107 H 243 H (75-99) mg/dL 04/02/18 Range/Units 11:43 Carbon Dioxide (22-30) mmol/L Glucose (74-99) mg/dL POC Glucose (mg/dL) 202 H (75-99) mg/dL Assessment and Plan Plan: Possible congestive heart failure exacerbation patient has chronic systolic dysfunction ejection fraction of 45% with acute exacerbation off Cardizem, being switched to oral Lasix -History of atrial fibrillation appears to be chronic A. fib patient appears to be in A. fib but rate controlled Not on anticoagulation at this time because of her falls in the past continue with beta sandra -Possible mild diverticulitis of the sigmoid colon for which patient is being continued on metronidazole and cephalosporin as mentioned above. -Right toe osteomyelitis for which patient is an above-mentioned antibiotics -Stage I sacral decubitus ulcer barier cream and santyl -Type 2 diabetes mellitus hold off metformin patient regarding on home regimen along with sliding scale insulin -Gastro-dysphagia reflux disease -Peripheral vascular disease: Continue with pentoxifylline -Depression continue with sertraline
[2018-04-02 16:17] LABS: Glucose,Whole Blood 143 mg/dL (75-99)
[2018-04-02] MEDS: FUROSEMIDE 40 MG TAB PO SCH (16:48)
[2018-04-02 20:57] LABS: Glucose,Whole Blood 230 mg/dL (75-99)
[2018-04-03] MEDS: ACETAMINOPHEN TAB 325 MG TAB PO SCH ×2 (05:52→11:58)
[2018-04-03] MEDS: PANTOPRAZOLE 40 MG TABLET PO SCH (05:52)
[2018-04-03 06:16] LABS: Glucose,Whole Blood 85 mg/dL (75-99)
[2018-04-03] MEDS: INSULIN ASPART 100 UNIT/ML 1 ML 10 ML VIAL SQ SCH ×2 (06:22→11:59)
[2018-04-03 06:55] LABS: Anion Gap 6 mmol/L; Blood Urea Nitrogen 18 mg/dL (7-17); Calcium 9.2 mg/dL (8.4-10.2); Carbon Dioxide 37 mmol/L (22-30); Chloride 98 mmol/L (98-107); Glucose 81 mg/dL (74-99); Potassium 4.1 mmol/L (3.5-5.1); Sodium 141 mmol/L (137-145)
[2018-04-03 08:13] VITALS: RESP 18
[2018-04-03] MEDS: metroNIDAZOLE-NS PMX 500 MG in SALINE 1 100ML.BAG IVPB SCH ×2 (08:15→16:13)
[2018-04-03] MEDS: METOPROLOL SUCCINATE (ER) 25 MG TAB.ER.24H PO SCH (08:22)
[2018-04-03] MEDS: FUROSEMIDE 40 MG TAB PO SCH ×2 (08:22→16:13)
[2018-04-03] MEDS: ASPIRIN 325 MG TAB PO SCH (08:22)
[2018-04-03] MEDS: SERTRALINE 25 MG TAB PO SCH (08:22)
[2018-04-03] MEDS: PENTOXIFYLLINE 400 MG TABLET.ER PO SCH ×2 (08:22→11:59)
[2018-04-03] MEDS: GABAPENTIN 100 MG CAP PO SCH ×2 (08:22→11:59)
[2018-04-03] MEDS: COLLAGENASE 250 UNIT/GM OINTMENT 30 GM TUBE TOPICAL SCH (08:23)
[2018-04-03] MEDS: INSULIN NPH/REG INSULIN 70/30 300 UNIT/3 ML VIAL SQ SCH (08:29)
[2018-04-03] MEDS ORDERED: ISOSORBIDE MONONITRATE ER 30 MG TAB.ER.24H PO SCH (09:00)
[2018-04-03] MEDS ORDERED: LISINOPRIL 5 MG TAB PO SCH (09:00)
[2018-04-03 11:30] LABS: Glucose,Whole Blood 136 mg/dL (75-99)
[2018-04-03 12:11] VITALS: BP 117/56; PULSE 76; TEMP 98.1
[2018-04-03] MEDS: LACTULOSE 20 GM/30 ML CUP PO ONE ×2 (13:17→13:23)
--- NOTE | 2018-04-03 14:23 | P.DS ---
Providers Date of admission: 03/31/18 10:57 Attending physician: Tanner Myers Consults: 03/31/18 10:57 Consult Physician Routine Consulting Provider: John Paul Tong Consult Reason/Comments: chf Do you want consulting provider notified?: Yes Primary care physician: Farrukh Kebede [facility] Hospital Course: The patient is admitted for can start failure exacerbation patient appears to have ejection fraction of 45% patient is feeling much better today saturating at 97% on 2 L of oxygen. Patient doesn't use any onset at home patient does have history of atrial fibrillation fairly rate controlled now patient is still having some soreness in the abdomen patient is also being treated for diverticulitis. Patient is on ceftazidime for osteomyelitis and metronidazole was added because of the diverticulitis. 04/02/2018 This pretty status improved significantly patient is saturating well without oxygen, echo cardiac exam is still not available venous Doppler of lower extremity did not show any significant abnormality, patient is being switched to oral Lasix and monitor 1 more night possibly of discharge tomorrow abdominal pain improved 04/03/2018 Patient is euvolemic clinically doing well will be discharged today. PHYSICAL EXAMINATION: GENERAL: The patient is alert and oriented x3, not in any acute distress. Well developed, well nourished. HEENT: Pupils are round and equally reacting to light. EOMI. No scleral icterus. No conjunctival pallor. Normocephalic, atraumatic. No pharyngeal erythema. No thyromegaly. CARDIOVASCULAR: S1 and S2 present. No murmurs, rubs, or gallops. PULMONARY: Chest is clear to auscultation, no wheezing or crackles. ABDOMEN: Soft, nontender, nondistended, normoactive bowel sounds. No palpable organomegaly. MUSCULOSKELETAL: No joint swelling or deformity. EXTREMITIES: No cyanosis, clubbing, or pedal edema. NEUROLOGICAL: Gross neurological examination did not reveal any focal deficits. SKIN: No rashes. Assessment and Plan Plan: Possible congestive heart failure exacerbation patient has chronic systolic dysfunction ejection fraction of 45%-50% with acute exacerbation patient is clinically doing well. Patient may have chronic diastolic dysfunction as well which contributed to acute exacerbation. -History of atrial fibrillation appears to be chronic A. fib patient appears to be in A. fib but rate controlled Not on anticoagulation at this time because of her falls in the past continue with beta sandra -Possible mild diverticulitis of the sigmoid colon for which patient is being continued on metronidazole and cephalosporin as mentioned above. -Right toe osteomyelitis for which patient is an above-mentioned antibiotics -Stage I sacral decubitus ulcer barier cream and santyl -Type 2 diabetes mellitus hold off metformin patient regarding on home regimen along with sliding scale insulin -Gastro-dysphagia reflux disease -Peripheral vascular disease: Continue with pentoxifylline -Depression continue with sertraline Plan - Discharge Summary Discharge Rx Participant: No New Discharge Prescriptions: New Aspirin 325 mg PO DAILY tab Furosemide [Lasix] 40 mg PO BID@0900,1600 tab Isosorbide Mononitrate ER [Imdur] 30 mg PO DAILY tab.er.24h Lisinopril [Zestril] 5 mg PO DAILY tab metroNIDAZOLE [Flagyl] 500 mg PO TID #14 tab Continue Cholecalciferol [Vitamin D3] 1,000 unit PO DAILY@0600 Sertraline HCl [Zoloft] 25 mg PO DAILY Pentoxifylline 400 mg PO TID@, Insulin NPH/Reg Insulin 70/30 [humuLIN 70/30 VIAL] 25 unit SQ HS metFORMIN HCL 1,000 mg PO BID@0900,1700 Vit C/E/Zn/Coppr/Lutein/Zeaxan [Preservision Areds 2 Softgel] 1 cap PO DAILY@ 0600 Lactulose [Cephulac] 20 gm PO DAILY PRN ml PRN Reason: Constipation Omeprazole [PriLOSEC] 20 mg PO DAILY@0600 Metoprolol Succinate [Toprol XL] 75 mg PO BID Acetaminophen Tab [Tylenol] 650 mg PO Q6HR tab Gabapentin [Neurontin] 200 mg PO TID@ #9 cap Collagenase [Santyl] 1 applic TOPICAL DAILY PRN PRN Reason: wound care/R great toe Triad Wound Paste 1 applic TOPICAL BID Therahoney Gel 1 applic TOPICAL HS Sodium Chloride 0.9% Irrigatio [Saline 0.9% Irrigation] 10 ml IRRIGATION TID@ 0600,1400,2200 Collagenase [Santyl] 1 applic TOPICAL HS cefTAZidime [Fortaz] 2 gm IVPB TID@0600,1400,2200 Senna-S 1 tab PO BID@0900,1700 Insulin NPH/Reg Insulin 70/30 [humuLIN 70/30 VIAL] 30 unit SQ QAM Therahoney Gel 1 applic TOPICAL DAILY PRN PRN Reason: wound care/L 2nd & 4th toe Discontinued Diltiazem Oral [Cardizem*] 30 mg PO TID@ Lisinopril-Hctz 20-25 mg [Zestoretic 20-25] 1 tab PO DAILY Naproxen [Naprosyn] 250 mg PO TID-W/MEALS tab Discharge Medication List Cholecalciferol [Vitamin D3] 1,000 unit PO DAILY@0600 12/13/16 [History] Pentoxifylline 400 mg PO TID@12/13/16 [History] Sertraline HCl [Zoloft] 25 mg PO DAILY 12/13/16 [History] Insulin NPH/Reg Insulin 70/30 [humuLIN 70/30 VIAL] 25 unit SQ HS 11/10/17 [ History] Vit C/E/Zn/Coppr/Lutein/Zeaxan [Preservision Areds 2 Softgel] 1 cap PO DAILY@ 0600 11/10/17 [History] metFORMIN HCL 1,000 mg PO BID@0900,1700 11/10/17 [History] Lactulose [Cephulac] 20 gm PO DAILY PRN ml 11/16/17 [Rx] Omeprazole [PriLOSEC] 20 mg PO DAILY@0600 12/08/17 [History] Metoprolol Succinate [Toprol XL] 75 mg PO BID 12/12/17 [History] Acetaminophen Tab [Tylenol] 650 mg PO Q6HR tab 03/24/18 [Rx] Gabapentin [Neurontin] 200 mg PO TID@ #9 cap 03/24/18 [Rx] Collagenase [Santyl] 1 applic TOPICAL DAILY PRN 03/31/18 [History] Collagenase [Santyl] 1 applic TOPICAL HS 03/31/18 [History] Insulin NPH/Reg Insulin 70/30 [humuLIN 70/30 VIAL] 30 unit SQ QAM 03/31/18 [ History] Senna-S 1 tab PO BID@0900,1700 03/31/18 [History] Sodium Chloride 0.9% Irrigatio [Saline 0.9% Irrigation] 10 ml IRRIGATION TID@ 0600,1400,2200 03/31/18 [History] Therahoney Gel 1 applic TOPICAL DAILY PRN 03/31/18 [History] Therahoney Gel 1 applic TOPICAL HS 03/31/18 [History] Triad Wound Paste 1 applic TOPICAL BID 03/31/18 [History] cefTAZidime [Fortaz] 2 gm IVPB TID@0600,1400,2200 03/31/18 [History] Aspirin 325 mg PO DAILY tab 04/03/18 [Rx] Furosemide [Lasix] 40 mg PO BID@0900,1600 tab 04/03/18 [Rx] Isosorbide Mononitrate ER [Imdur] 30 mg PO DAILY tab.er.24h 04/03/18 [Rx] Lisinopril [Zestril] 5 mg PO DAILY tab 04/03/18 [Rx] metroNIDAZOLE [Flagyl] 500 mg PO TID #14 tab 04/03/18 [Rx] Follow up Appointment(s)/Referral(s): Bruce Koch MD [STAFF PHYSICIAN] - 04/17/18 2:15 pm Farrukh Kebede MD [Primary Care Provider] - As Needed Edgard Oquendo MD [STAFF PHYSICIAN] - 04/10/18 2:00 pm Patient Instructions/Handouts: Heart Failure (DC), Wound Healing and Your Diet (DC), Low Sodium Diet (DC) Activity/Diet/Wound Care/Special Instructions: Patient resides at [facility] Full code at [facility] 2L NC Activity as tolerated Heart healthy consistent carb diet, terry supplement with breakfast PICC line, maintain flushes and dressing changes per facility protocol Wound care as before at [facility] on the [place], see medication reconciliation for topical treatments used and frequency Discharge Disposition: TRANSFER TO SNF/ECF
--- NOTE | 2018-04-03 14:59 | P.PN ---
Subjective Progress Note Date: 04/03/18 This is a pleasant 82-year-old female patient who was transferred from an extended care facility to the hospital for further evaluation of shortness of breath. The patient herself is a poor historian and I spoke with the patient and her family in the emergency room. The patient does follow with a supply tech at [facility]. The patient does have an extensive cardiac history consistent off coronary artery disease where she underwent about a year ago a heart catheterization and that revealed extensive triple-vessel coronary artery disease where the patient was told by her supply tech that she is an amenable to any kind of revascularization and she was treated medically. Beside that she does have history of congestive heart failure, chronic atrial fibrillation for some reason she is not on any oral anticoagulation, diabetes, hypertension, and dyslipidemia. Currently she has been treated for osteomyelitis of the right foot and bilateral lower extremities ulcers related to severe underlying peripheral tear disease has been treated by Dr. Khan. Patient has been diuresing with IV Lasix, overall feeling much better. Sodium 141, potassium 3.6, BUN 18, creatinine 0.5. 04/03/2018 Patient seen and examined today, overall feeling significantly better. Blood pressure 117/60 heart rate in the 70s. Sodium 141, potassium 4.1, BUN 18, creatinine 0.6. Objective - Vital Signs Vital signs: Vital Signs Temp 98.1 F 04/03/18 12:00 Pulse 76 04/03/18 12:00 Resp 18 04/03/18 12:00 BP 117/56 04/03/18 12:00 Pulse Ox 100 04/03/18 12:00 Intake & Output 04/02/18 04/03/18 04/03/18 18:59 06:59 18:59 Intake Total 960 300 820 Output Total 119 333 4194 Balance 360 -300 -255 Weight 81.5 kg Intake: Intake, IV Titration 100 100 Amount cefTAZidime 2 gm In 100 Sodium Chloride 0.9% 100 ml @ 100 mls/hr IVPB 0600 ,1400,2200 [facility] Rx#: [id number] metroNIDAZOLE-NS PMX 500 100 mg In Saline 1 100ml.bag @ 100 mls/hr IVPB Q8HR [facility] Rx#:[id number] Oral 960 200 720 Output: Urine 632 731 0340 Other: Voiding Method Bedside Commode - Exam GENERAL: The patient is alert and oriented x3, not in any acute distress. Well developed, well nourished. HEENT: Pupils are round and equally reacting to light. EOMI. No scleral icterus. No conjunctival pallor. Normocephalic, atraumatic. No pharyngeal erythema. No thyromegaly. CARDIOVASCULAR: S1 and S2 present. No murmurs, rubs, or gallops. Patient does have elevated JVD but minimal. Irregularly irregular rhythm rate controlled PULMONARY: Chest is clear to auscultation, no wheezing or crackles. ABDOMEN: Soft, nontender, nondistended, normoactive bowel sounds. No palpable organomegaly. MUSCULOSKELETAL: No joint swelling or deformity. EXTREMITIES: No cyanosis, clubbing, or pedal edema. NEUROLOGICAL: Gross neurological examination did not reveal any focal deficits. SKIN: No rashes. - Labs CBC & Chem 7: 04/02/18 05:58 04/03/18 05:50 Labs: Abnormal Lab Results - Last 24 Hours (Table) 04/02/18 04/02/18 04/03/18 Range/Units 16:13 20:56 05:50 Carbon Dioxide 37 H (22-30) mmol/L BUN 18 H (7-17) mg/dL POC Glucose (mg/dL) 143 H 230 H (75-99) mg/dL 04/03/18 Range/Units 11:22 Carbon Dioxide (22-30) mmol/L BUN (7-17) mg/dL POC Glucose (mg/dL) 136 H (75-99) mg/dL Assessment and Plan Plan: Assessment #1 congestive heart failure exacerbation secondary to systolic dysfunction. Acute on chronic. #2 severe underlying coronary artery disease, according to the patient's family #3 mild ischemic cardiomyopathy with an EF of 45% #4 chronic atrial fibrillation with controlled heart rate #5 severe peripheral arterial disease/critical limb ischemia #6 multiple comorbid conditions including hypertension and dyslipidemia Plan From cardiology's perspective, we'll continue current dose of POV Lasix. Discharge home once cleared by primary, a follow-up appointment will be made in the office post discharge. DNP note has been reviewed, I agree with a documented findings and plan of care. Patient was seen and examined.
[2018-04-04] MEDS ORDERED: ASPIRIN 81 MG PO SCH (09:00)
== END 2018-04-03 17:00 | DRG 292 ==
LOC: EC 06:52 → 6SEL 10:57
PROVIDERS: ADMIT Internal Medicine; ATTEND Internal Medicine
DX: I11.0 Hypertensive heart disease with heart failure (principal); K57.32 Diverticulitis of large intestine without perforation or abscess without bleeding; L97.919 Non-pressure chronic ulcer of unspecified part of right lower leg with unspecified severity; L97.929 Non-pressure chronic ulcer of unspecified part of left lower leg with unspecified severity; M86.9 Osteomyelitis, unspecified; L89.151 Pressure ulcer of sacral region, stage 1; E11.51 Type 2 diabetes mellitus with diabetic peripheral angiopathy without gangrene; E11.622 Type 2 diabetes mellitus with other skin ulcer; E11.69 Type 2 diabetes mellitus with other specified complication; I25.5 Ischemic cardiomyopathy; I48.2 Chronic atrial fibrillation; I50.43 Acute on chronic combined systolic (congestive) and diastolic (congestive) heart failure; E78.5 Hyperlipidemia, unspecified; F32.9 Major depressive disorder, single episode, unspecified; H91.90 Unspecified hearing loss, unspecified ear; I25.10 Atherosclerotic heart disease of native coronary artery without angina pectoris; I35.0 Nonrheumatic aortic (valve) stenosis; I99.8 Other disorder of circulatory system; K21.9 Gastro-esophageal reflux disease without esophagitis; M19.90 Unspecified osteoarthritis, unspecified site; Z79.4 Long term (current) use of insulin; Z79.899 Other long term (current) drug therapy; Z90.710 Acquired absence of both cervix and uterus; Z87.891 Personal history of nicotine dependence; Z85.41 Personal history of malignant neoplasm of cervix uteri; Z88.1 Allergy status to other antibiotic agents; Z88.5 Allergy status to narcotic agent; Z98.42 Cataract extraction status, left eye; Z98.41 Cataract extraction status, right eye; Z96.1 Presence of intraocular lens; Z90.49 Acquired absence of other specified parts of digestive tract; Z95.810 Presence of automatic (implantable) cardiac defibrillator; Z91.81 History of falling; Z82.49 Family history of ischemic heart disease and other diseases of the circulatory system; Z83.3 Family history of diabetes mellitus
CPT/HCPCS: 36415; 71046; 71275; 74177; 80048; 80053; 82550; 82553; 83880; 84484; 85025; 85027; 85379; 85610; 85730; 93005; 93306; 94640; 96365; 96367; 96375; 99285

== ENCOUNTER 2018-05-14 22:00 | Emergency (ER) | payer MEDICARE, BC ==
--- NOTE | 2018-05-14 22:04 | ED ---
Chest Pain HPI - General Stated Complaint: CHEST PAIN Time Seen by Provider: 05/14/18 22:03 - History of Present Illness Initial Comments: Des an 82-year-old female who presents to the emergency department today EMS from her residential facility for evaluation of an episode of altered mental status. Patient reports that he checked her sugar before dinner time and noted that it was in the 70s, she then ate dinner. Patient reports she then began to feel sweaty and unwell and was worried that she was having a problem with her sugar. Told by staff that she was doing well and she remained in the recreation room watching a movie. Patient reports she then began to feel very weak and alerted staff who checked her blood sugar told her that it was over 300 and called EMS for transport to the hospital. 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 Patient reports that she is 4 weeks into a six-week course and has been doing quite well. She reports that her foot has healed and this is the best it has looked in the past year. Patient denies any recent fevers but does report occasional chills. She denies any nausea and vomiting she reports that she's been eating well. She reports that she's been eating meals provided by the care facility. Patient denies any headaches, vision changes, shortness of breath or palpitations. When asked if she has chest pain patient states that she has had chest pain intermittently for a very long time but none today. Family at bedside states the patient has required transfer to the hospital to time since being admitted at this care facility due to hypoglycemia. Family reports that the patient is on oral hypoglycemics as well as insulin, her insulin is managed by the caregivers at the facility. - Related Data Home Medications Medication Instructions Recorded Confirmed Cholecalciferol [Vitamin D3] 1,000 unit PO DAILY@0600 12/13/16 04/24/18 Pentoxifylline 400 mg PO TID@12/13/16 04/24/18 Sertraline HCl [Zoloft] 25 mg PO DAILY 12/13/16 04/24/18 Insulin NPH/Reg Insulin 70/30 25 unit SQ HS 11/10/17 04/24/18 [humuLIN 70/30 VIAL] Vit C/E/Zn/Coppr/Lutein/Zeaxan 1 cap PO DAILY@0600 11/10/17 04/24/18 [Preservision Areds 2 Softgel] metFORMIN HCL 1,000 mg PO BID@0900,1700 11/10/17 04/24/18 Omeprazole [PriLOSEC] 20 mg PO DAILY@0600 12/08/17 04/24/18 Metoprolol Succinate [Toprol XL] 75 mg PO BID 12/12/17 04/24/18 Insulin NPH/Reg Insulin 70/30 30 unit SQ QAM 03/31/18 04/24/18 [humuLIN 70/30 VIAL] Senna-S 1 tab PO BID@0900,1700 03/31/18 04/24/18 cefTAZidime [Fortaz] 2 gm IVPB Q8HR 04/10/18 04/24/18 Previous Rx's Medication Instructions Recorded Lactulose [Cephulac] 20 gm PO DAILY PRN ml 11/16/17 Acetaminophen Tab [Tylenol] 650 mg PO Q6HR tab 03/24/18 Gabapentin [Neurontin] 200 mg PO TID@, #9 cap 03/24/18 Aspirin 81 mg PO DAILY #0 chew 04/03/18 Furosemide [Lasix] 40 mg PO BID@0900,1600 tab 04/03/18 Isosorbide Mononitrate ER [Imdur] 30 mg PO DAILY tab.er.24h 04/03/18 Lisinopril [Zestril] 5 mg PO DAILY tab 04/03/18 metroNIDAZOLE [Flagyl] 500 mg PO TID #14 tab 04/03/18 Allergies Allergy/AdvReac Type Severity Reaction Status Date / Time levofloxacin [From Levaquin] Allergy Mild Rash/Hives Verified 05/14/18 22:06 morphine Allergy Rapid Verified 05/14/18 22:06 Heart Rate Review of Systems ROS Statement: Those systems with pertinent positive or pertinent negative responses have been documented in the HPI. ROS Other: All systems not noted in ROS Statement are negative. EKG Findings - EKG Comments: EKG Findings:: EKG obtained at 2211, rate is 78, rhythm is irregularly irregular with no P waves preceding QRS, consistent with atrial fibrillation, normal intervals, QRS is 86, QTC is 462, there are no acute ST elevations or depressions. When EKG is compared to previous which was obtained on March 31, morphology is similar, as well as aberrancy noted on this EKG than previous. Past Medical History Past Medical History: Atrial Fibrillation, Coronary Artery Disease (CAD), Cancer , Diabetes Mellitus, GERD/Reflux, Hearing Disorder / Deafness, Hyperlipidemia, Hypertension, Osteoarthritis (OA) Additional Past Medical History / Comment(s): diverticultis, rt arm fx, cervical cancer, pancreatitis, right foot infection, gall stones and removal, FALL/fx coccyx 08-29-17, CONSTIPATION, PAD, RT FOOT (great toe) WOUND HAS BEEN GOING TO THE [facility] , [facility] [place] History of Any Multi-Drug Resistant Organisms: None Reported Date of last positivie culture/infection: None MDRO Source:: None Past Surgical History: AICD, Bowel Resection, Cholecystectomy, Heart Catheterization, Hysterectomy, Orthopedic Surgery Additional Past Surgical History / Comment(s): Internal defibulator 09-15-17, LT ROTATOR CUFF X2, BUNIONECTOMY JACQUELINE,, JACQUELINE BREAST LUMPECTOMIES-BOTH NEG,, X2 ERCP, RT HAND SX PINS PLACED-BUT SINCE REMOVED, CATARACTS. 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 also has a walker, glucometer and monitor for the aicd. Smoking Status: Former smoker Past Alcohol Use History: None Reported Additional Past Alcohol Use History / Comment(s): Smoked sporadically from 1964 till 1967 Past Drug Use History: None Reported - Past Family History Mother Family Medical History: No Reported History Additional Family Medical History / Comment(s): HEART DISEASE Father Family Medical History: Coronary Artery Disease (CAD), Diabetes Mellitus General Exam Limitations: no limitations General appearance: alert, in no apparent distress Head exam: Present: atraumatic, normocephalic Eye exam: Present: normal appearance, PERRL ENT exam: Present: normal exam Neck exam: Present: normal inspection Respiratory exam: Present: normal lung sounds bilaterally. Absent: respiratory distress Cardiovascular Exam: Present: regular rate, normal rhythm GI/Abdominal exam: Present: soft. Absent: distended Rectal exam: Present: deferred Extremities exam: Present: full ROM, normal capillary refill, other (Well healing wounds on the bilateral feet). Absent: pedal edema Neurological exam: Present: alert, oriented X3 Psychiatric exam: Present: normal affect, normal mood Skin exam: Present: warm, dry Course Vital Signs 05/14/18 05/14/18 05/15/18 22:02 23:11 00:02 Temperature 98.2 F 97.5 F L Pulse Rate 78 77 Pulse Rate [ 75 Supine] Respiratory 16 18 Rate Blood Pressure 145/67 154/88 O2 Sat by Pulse 95 99 Oximetry 05/15/18 05/15/18 01:04 02:49 Temperature Pulse Rate 77 70 Pulse Rate [ Supine] Respiratory 16 17 Rate Blood Pressure 151/70 124/55 O2 Sat by Pulse 97 98 Oximetry Chest Pain MDM - MDM The patient was seen and evaluated, history was obtained from the patient, review of medical record as well as family at bedside Patient had transient episode of feeling unwell and weak Patient denies any chest pain or palpitations today Broad range of labs and imaging ordered EKG was reviewed, no acute changes from previous Labs reveal significant hypomagnesemia but no other significant abnormalities Glucose is mildly elevated IV magnesium was ordered Patient remained hemodynamically stable and chest pain-free throughout her ED stay At this time I feel the patient is stable for discharge back to her extended care facility for continued management of her osteomyelitis Disposition Clinical Impression: Hypomagnesemia, Generalized weakness Disposition: HOME SELF-CARE Condition: Good Instructions: Hypomagnesemia (ED) Is patient prescribed a controlled substance at d/c from ED?: No Referrals: Farrukh Kebede MD [Primary Care Provider] - 1-2 days Time of Disposition: 02:57
[2018-05-14 22:38] LABS: Basophils % (A) 0 %; Eosinophils # (A) 0.1 k/uL (0-0.7); Eosinophils % (A) 3 %; HCT 37.5 % (34.0-46.0); Lymphocytes # (A) 1.1 k/uL (1.0-4.8); Lymphocytes % (A) 22 %; MCH 29.1 pg (25.0-35.0); MCHC 32.1 g/dL (31.0-37.0); Mean Platelet Volume 7.1; Monocytes # (A) 0.4 k/uL (0-1.0); Monocytes % (A) 8 %; Neutrophils # (A) 3.2 k/uL (1.3-7.7); Neutrophils % (A) 65 %; Platelet Count 173 k/uL (150-450); RBC 4.14 m/uL (3.80-5.40); RDW 15.1 % (11.5-15.5)
[2018-05-14 22:44] LABS: MCV 90.5 fL (80.0-100.0)
[2018-05-14 22:47] LABS: ALT 27 U/L (9-52); AST 20 U/L (14-36); Albumin 3.4 g/dL (3.5-5.0); Alkaline Phosphatase 90 U/L (38-126); Anion Gap 11 mmol/L; Blood Urea Nitrogen 24 mg/dL (7-17); Calcium 8.6 mg/dL (8.4-10.2); Carbon Dioxide 27 mmol/L (22-30); Chloride 101 mmol/L (98-107); Glucose 304 mg/dL (74-99); Potassium 4.8 mmol/L (3.5-5.1); Sodium 139 mmol/L (137-145); Total Bilirubin 0.4 mg/dL (0.2-1.3); Total Protein 6.1 g/dL (6.3-8.2)
--- NOTE | 2018-05-14 22:50 | XR ---
EXAMINATION TYPE: XR chest 2V DATE OF EXAM: 05/14/2018 COMPARISON: 03/31/2018 HISTORY: Chest pain TECHNIQUE: Frontal and lateral views of the chest are obtained. FINDINGS: There is multiple old right-sided healed rib fractures with pleural thickening. There is b lunting of right costophrenic angle. Heart is enlarged. There is no heart failure. There is left axil nubia pacemaker with the lead tip in the right ventricle. There are chest leads. IMPRESSION: Right-sided pleural scarring. Cardiomegaly. No heart failure. No acute lung disease. No significant change. Mild right-sided pulmonary scarring.
[2018-05-14 22:57] LABS: INR 1.2 (<1.2); Prothrombin Time 11.2 sec (9.0-12.0)
[2018-05-14 23:02] LABS: Creatine Kinase 26 U/L (30-135)
[2018-05-14 23:05] LABS: Partial Thromboplastin Time 21.2 sec (22.0-30.0)
[2018-05-14 23:16] LABS: Creatine Kinase MB 1.1 ng/mL (0.0-2.4); Troponin I <0.012 ng/mL (0.000-0.034)
[2018-05-14] MEDS: MAGNESIUM SULFATE-D5W PMX 1 GM in DEXTROSE/WATER 1 100ML.BAG IVPB SCH (23:47)
[2018-05-14 23:54] LABS: Appearance,Urine Clear (Clear); Bilirubin,Urine Negative (Negative); Blood,Urine Negative (Negative); Color,Urine Yellow; Glucose,Urine (UA) 4+ (Negative); Hyaline Casts,Urine 60 /lpf (0-2); Ketones,Urine Trace (Negative); Leukocyte Esterase,Urine Negative (Negative); Mucus,Urine Rare /hpf; Nitrite,Urine Negative (Negative); Protein,Urine 3+ (Negative); RBC,Urine 1 /hpf (0-5); Specific Gravity,Urine 1.017 (1.001-1.035); Squamous Epithelial Cell,Urine 1 /hpf (0-4); Urobilinogen,Urine <2.0 mg/dL (<2.0); WBC,Urine 2 /hpf (0-5)
[2018-05-15] MEDS: MAGNESIUM SULFATE-D5W PMX 1 GM in DEXTROSE/WATER 1 100ML.BAG IVPB SCH (00:53)
[2018-05-15 04:07] VITALS: BP 129/56; PULSE 72; RESP 16; TEMP 98.1
== END 2018-05-15 04:07 | disposition home or self-care (01) ==
LOC: EC 22:00
DX: E83.42 Hypomagnesemia (principal); E11.69 Type 2 diabetes mellitus with other specified complication; M86.671 Other chronic osteomyelitis, right ankle and foot; S91.302D Unspecified open wound, left foot, subsequent encounter; S91.301D Unspecified open wound, right foot, subsequent encounter; I48.91 Unspecified atrial fibrillation; I25.10 Atherosclerotic heart disease of native coronary artery without angina pectoris; I10 Essential (primary) hypertension; K21.9 Gastro-esophageal reflux disease without esophagitis; Z87.891 Personal history of nicotine dependence; Z88.1 Allergy status to other antibiotic agents; Z88.5 Allergy status to narcotic agent; Z79.4 Long term (current) use of insulin; Z79.899 Other long term (current) drug therapy; Z95.810 Presence of automatic (implantable) cardiac defibrillator; Z85.41 Personal history of malignant neoplasm of cervix uteri; Z90.710 Acquired absence of both cervix and uterus; Z98.890 Other specified postprocedural states; Z83.3 Family history of diabetes mellitus; X58.XXXD Exposure to other specified factors, subsequent encounter
CPT/HCPCS: 36415; 93005; 80053; 82550; 82553; 83735; 84484; 85025; 85610; 85730; 81001; 71046; 99285; 96365; 96366; J3475 ×2

== ENCOUNTER 2018-09-25 13:02 | Inpatient (IN) | payer MEDICARE, BC ==
[2018-09-25] MEDS ORDERED: SODIUM CHLORIDE 0.9% 1,000 ML IV STA ×2 (13:10→17:42)
--- NOTE | 2018-09-25 14:13 | ED ---
Fall HPI - General Chief Complaint: Fall Stated Complaint: fall Time Seen by Provider: 09/25/18 13:05 Source: patient, EMS Mode of arrival: EMS Limitations: altered mental status, physical limitation - History of Present Illness Initial Comments: This is a 83-year-old female the ER for evaluation status post fall. Patient's brought in by EMS, patient was found down by someone who also lives in nursing apart who had heard her fall. Patient fell while using her walker rolled forward landing on her right side. Patient denies loss of consciousness. EMS states patient's complaining of right-sided pain. 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 Witnessed: yes, by bystander Place Fall Occurred: home Loss of Consciousness: none Prolonged Down Time?: no Symptoms Prior to Fall: none Location: head Location - Extremities: Right: Shoulder, Arm, Elbow, Thigh Severity: moderate Severity scale (1-10): 3 Quality: aching Context: tripped/slipped Associated Symptoms: denies - Related Data Home Medications Medication Instructions Recorded Confirmed Pentoxifylline 400 mg PO TID 12/13/16 09/25/18 Sertraline HCl [Zoloft] 25 mg PO DAILY 12/13/16 09/25/18 Vit C/E/Zn/Coppr/Lutein/Zeaxan 1 cap PO DAILY@0600 11/10/17 09/25/18 [Preservision Areds 2 Softgel] metFORMIN HCL 1,000 mg PO BID 11/10/17 09/25/18 Diltiazem Oral [Cardizem Oral] 30 mg PO [facility] 09/25/18 09/25/18 Ergocalciferol [Vitamin D2] 50,000 unit PO Q7D 09/25/18 09/25/18 Gabapentin [Neurontin] 200 mg PO TID 09/25/18 09/25/18 INSULIN LISPRO (HumaLOG) [HumaLOG] See Protocol SQ [facility] 09/25/18 09/25/18 Ibuprofen [Motrin Ib] 200 mg PO BID 09/25/18 09/25/18 Lisinopril-Hctz 20-25 mg 1 tab PO DAILY 09/25/18 09/25/18 [Zestoretic 20-25] Magnesium Oxide [Mag-Ox] 400 mg PO BID 09/25/18 09/25/18 Omeprazole 40 mg PO DAILY 09/25/18 09/25/18 Sennosides/Docusate Sodium 1 tab PO BID PRN 09/25/18 09/25/18 [Senna-S Laxative Tablet] Thiamine [Vitamin B-1] 100 mg PO DAILY 09/25/18 09/25/18 Tolterodine Tartrate [Detrol LA] 4 mg PO DAILY 09/25/18 09/25/18 Trospium Chloride 20 mg PO HS 09/25/18 09/25/18 Vitamin B Complex 1 cap PO DAILY 09/25/18 09/25/18 Previous Rx's Medication Instructions Recorded Acetaminophen Tab [Tylenol] 650 mg PO Q6HR tab 03/24/18 Aspirin 81 mg PO DAILY #0 chew 04/03/18 Furosemide [Lasix] 40 mg PO BID@0900,1600 tab 04/03/18 Allergies Allergy/AdvReac Type Severity Reaction Status Date / Time levofloxacin [From Levaquin] Allergy Mild Rash/Hives Verified 09/25/18 14:13 morphine Allergy Rapid Verified 09/25/18 14:13 Heart Rate Review of Systems ROS Statement: Those systems with pertinent positive or pertinent negative responses have been documented in the HPI. ROS Other: All systems not noted in ROS Statement are negative. Past Medical History Past Medical History: Atrial Fibrillation, Coronary Artery Disease (CAD), Cancer , Diabetes Mellitus, GERD/Reflux, Hearing Disorder / Deafness, Hyperlipidemia, Hypertension, Osteoarthritis (OA) Additional Past Medical History / Comment(s): diverticultis, rt arm fx, cervical cancer, pancreatitis, right foot infection, gall stones and removal, FALL/fx coccyx 08-29-17, CONSTIPATION, PAD, RT FOOT (great toe) WOUND HAS BEEN GOING TO [facility] , [place],lt. foot wound History of Any Multi-Drug Resistant Organisms: None Reported Date of last positivie culture/infection: None MDRO Source:: None Past Surgical History: AICD, Bowel Resection, Cholecystectomy, Heart Catheterization, Hysterectomy, Orthopedic Surgery Additional Past Surgical History / Comment(s): Internal defibulator 09-15-17, LT ROTATOR CUFF X2, BUNIONECTOMY JACQUELINE,, JACQUELINE BREAST LUMPECTOMIES-BOTH NEG,, X2 ERCP, RT HAND SX PINS PLACED-BUT SINCE REMOVED, CATARACTS. 12/01/17 picc line inserted- since removed Past Anesthesia/Blood Transfusion Reactions: No Reported Reaction Type of Cardiac Device: AICD Device Placement Date:: 09-15-17 Past Psychological History: No Psychological Hx Reported Smoking Status: Former smoker Past Alcohol Use History: None Reported Past Drug Use History: None Reported - Past Family History Mother Family Medical History: No Reported History Additional Family Medical History / Comment(s): HEART DISEASE Father Family Medical History: Coronary Artery Disease (CAD), Diabetes Mellitus General Exam Limitations: physical limitation General appearance: alert, in no apparent distress Head exam: Present: atraumatic, normocephalic, normal inspection Eye exam: Present: normal appearance, PERRL, EOMI. Absent: scleral icterus, conjunctival injection, periorbital swelling ENT exam: Present: normal exam, mucous membranes moist Neck exam: Present: normal inspection. Absent: tenderness, meningismus, lymphadenopathy Respiratory exam: Present: normal lung sounds bilaterally. Absent: respiratory distress, wheezes, rales, rhonchi, stridor Cardiovascular Exam: Present: regular rate, normal rhythm, normal heart sounds. Absent: systolic murmur, diastolic murmur, rubs, gallop, clicks GI/Abdominal exam: Present: soft, normal bowel sounds. Absent: distended, tenderness, guarding, rebound, rigid Extremities exam: Present: normal inspection, full ROM, normal capillary refill. Absent: tenderness, pedal edema, joint swelling, calf tenderness Back exam: Present: normal inspection Neurological exam: Present: alert, oriented X3, CN II-XII intact Psychiatric exam: Present: normal affect, normal mood Skin exam: Present: warm, dry, intact, normal color. Absent: rash Course Vital Signs 09/25/18 09/25/18 09/25/18 13:19 16:24 18:33 Temperature 98.7 F 97.1 F L Pulse Rate 77 86 71 Respiratory 18 18 19 Rate Blood Pressure 134/94 98/83 130/67 O2 Sat by Pulse 95 93 L 93 L Oximetry - Reevaluation(s) Reevaluation #1: 09/25/18 14:13 Medical record is reviewed and noncontributory Medical Decision Making - Medical Decision Making 83 female the ER for evaluation, patient a fall today with humeral Fracture. Patient walks with a walker will be unable to perform her activities of daily living currently secondary to this fracture. Patient will be admitted for pain control orthopedic evaluation and possible placement - Lab Data Result diagrams: 09/25/18 14:29 09/25/18 14:29 Lab Results 09/25/18 09/25/18 09/25/18 Range/Units 14:29 14:29 14:29 WBC 11.1 H (3.8-10.6) k/uL RBC 4.57 (3.80-5.40) m/uL Hgb 13.2 (11.4-16.0) gm/dL Hct 41.6 (34.0-46.0) % MCV 91.0 (80.0-100.0) fL MCH 28.8 (25.0-35.0) pg MCHC 31.6 (31.0-37.0) g/dL RDW 15.5 (11.5-15.5) % Plt Count 191 (150-450) k/uL Neutrophils % 84 % Lymphocytes % 8 % Monocytes % 6 % Eosinophils % 1 % Basophils % 0 % Neutrophils # 9.4 H (1.3-7.7) k/uL Lymphocytes # 0.8 L (1.0-4.8) k/uL Monocytes # 0.7 (0-1.0) k/uL Eosinophils # 0.1 (0-0.7) k/uL Basophils # 0.0 (0-0.2) k/uL PT (9.0-12.0) sec INR (<1.2) APTT (22.0-30.0) sec Sodium 140 (137-145) mmol/L Potassium 5.2 H (3.5-5.1) mmol/L Chloride 102 (98-107) mmol/L Carbon Dioxide 33 H (22-30) mmol/L Anion Gap 5 mmol/L BUN 37 H (7-17) mg/dL Creatinine 0.68 (0.52-1.04) mg/dL Est GFR (CKD-EPI)AfAm >90 (>60 ml/min/1.73 sqM) Est GFR (CKD-EPI)NonAf 81 (>60 ml/min/1.73 sqM) Glucose 277 H (74-99) mg/dL Calcium 9.7 (8.4-10.2) mg/dL Phosphorus 3.4 (2.5-4.5) mg/dL Magnesium 1.7 (1.6-2.3) mg/dL Total Bilirubin 1.0 (0.2-1.3) mg/dL AST 32 (14-36) U/L ALT 46 (9-52) U/L Alkaline Phosphatase 60 (38-126) U/L Total Creatine Kinase 84 (30-135) U/L CK-MB (CK-2) 2.2 (0.0-2.4) ng/mL CK-MB (CK-2) Rel Index 2.6 Troponin I <0.012 (0.000-0.034) ng/mL Total Protein 6.5 (6.3-8.2) g/dL Albumin 3.7 (3.5-5.0) g/dL Urine Color Urine Appearance (Clear) Urine pH (5.0-8.0) Ur Specific Marshall (1.001-1.035) Urine Protein (Negative) Urine Glucose (UA) (Negative) Urine Ketones (Negative) Urine Blood (Negative) Urine Nitrite (Negative) Urine Bilirubin (Negative) Urine Urobilinogen (<2.0) mg/dL Ur Leukocyte Esterase (Negative) Urine WBC (0-5) /hpf Ur Squamous Epith Cells (0-4) /hpf 09/25/18 09/25/18 Range/Units 14:29 14:51 WBC (3.8-10.6) k/uL RBC (3.80-5.40) m/uL Hgb (11.4-16.0) gm/dL Hct (34.0-46.0) % MCV (80.0-100.0) fL MCH (25.0-35.0) pg MCHC (31.0-37.0) g/dL RDW (11.5-15.5) % Plt Count (150-450) k/uL Neutrophils % % Lymphocytes % % Monocytes % % Eosinophils % % Basophils % % Neutrophils # (1.3-7.7) k/uL Lymphocytes # (1.0-4.8) k/uL Monocytes # (0-1.0) k/uL Eosinophils # (0-0.7) k/uL Basophils # (0-0.2) k/uL PT 10.3 (9.0-12.0) sec INR 1.0 (<1.2) APTT 21.9 L (22.0-30.0) sec Sodium (137-145) mmol/L Potassium (3.5-5.1) mmol/L Chloride (98-107) mmol/L Carbon Dioxide (22-30) mmol/L Anion Gap mmol/L BUN (7-17) mg/dL Creatinine (0.52-1.04) mg/dL Est GFR (CKD-EPI)AfAm (>60 ml/min/1.73 sqM) Est GFR (CKD-EPI)NonAf (>60 ml/min/1.73 sqM) Glucose (74-99) mg/dL Calcium (8.4-10.2) mg/dL Phosphorus (2.5-4.5) mg/dL Magnesium (1.6-2.3) mg/dL Total Bilirubin (0.2-1.3) mg/dL AST (14-36) U/L ALT (9-52) U/L Alkaline Phosphatase (38-126) U/L Total Creatine Kinase (30-135) U/L CK-MB (CK-2) (0.0-2.4) ng/mL CK-MB (CK-2) Rel Index Troponin I (0.000-0.034) ng/mL Total Protein (6.3-8.2) g/dL Albumin (3.5-5.0) g/dL Urine Color Yellow Urine Appearance Clear (Clear) Urine pH 6.0 (5.0-8.0) Ur Specific Marshall 1.011 (1.001-1.035) Urine Protein Trace H (Negative) Urine Glucose (UA) 1+ H (Negative) Urine Ketones Negative (Negative) Urine Blood Negative (Negative) Urine Nitrite Negative (Negative) Urine Bilirubin Negative (Negative) Urine Urobilinogen <2.0 (<2.0) mg/dL Ur Leukocyte Esterase Moderate H (Negative) Urine WBC 3 (0-5) /hpf Ur Squamous Epith Cells <1 (0-4) /hpf - EKG Data -: EKG Interpreted by Me (EKG shows A. fib rate of 97, QRS 82, QTc 411) - Radiology Data Radiology results: report reviewed (CT brain C-spine x-ray chest and right side , right hip shows positive humerus fracture), image reviewed Disposition Clinical Impression: Fall, Right humeral fracture Disposition: ADMITTED IP TO THIS HOSP Condition: Fair Is patient prescribed a controlled substance at d/c from ED?: No
[2018-09-25 14:45] LABS: Basophils % (A) 0 %; Eosinophils # (A) 0.1 k/uL (0-0.7); Eosinophils % (A) 1 %; HCT 41.6 % (34.0-46.0); HGB 13.2 gm/dL (11.4-16.0); Lymphocytes # (A) 0.8 k/uL (1.0-4.8); Lymphocytes % (A) 8 %; MCH 28.8 pg (25.0-35.0); MCHC 31.6 g/dL (31.0-37.0); Monocytes # (A) 0.7 k/uL (0-1.0); Monocytes % (A) 6 %; Neutrophils # (A) 9.4 k/uL (1.3-7.7); Neutrophils % (A) 84 %; Platelet Count 191 k/uL (150-450); RBC 4.57 m/uL (3.80-5.40); RDW 15.5 % (11.5-15.5); WBC 11.1 k/uL (3.8-10.6)
[2018-09-25 14:54] LABS: ALT 46 U/L (9-52); AST 32 U/L (14-36); Albumin 3.7 g/dL (3.5-5.0); Alkaline Phosphatase 60 U/L (38-126); Anion Gap 5 mmol/L; Blood Urea Nitrogen 37 mg/dL (7-17); Calcium 9.7 mg/dL (8.4-10.2); Carbon Dioxide 33 mmol/L (22-30); Chloride 102 mmol/L (98-107); Glucose 277 mg/dL (74-99); Magnesium 1.7 mg/dL (1.6-2.3); Phosphorus 3.4 mg/dL (2.5-4.5); Potassium 5.2 mmol/L (3.5-5.1); Sodium 140 mmol/L (137-145); Total Protein 6.5 g/dL (6.3-8.2)
[2018-09-25 15:05] LABS: Creatine Kinase 84 U/L (30-135)
[2018-09-25 15:13] LABS: Partial Thromboplastin Time 21.9 sec (22.0-30.0); Prothrombin Time 10.3 sec (9.0-12.0)
[2018-09-25 15:19] LABS: Appearance,Urine Clear (Clear); Bilirubin,Urine Negative (Negative); Blood,Urine Negative (Negative); Color,Urine Yellow; Glucose,Urine (UA) 1+ (Negative); Ketones,Urine Negative (Negative); Leukocyte Esterase,Urine Moderate (Negative); Nitrite,Urine Negative (Negative); Protein,Urine Trace (Negative); Specific Gravity,Urine 1.011 (1.001-1.035); Squamous Epithelial Cell,Urine <1 /hpf (0-4); Urobilinogen,Urine <2.0 mg/dL (<2.0); WBC,Urine 3 /hpf (0-5)
[2018-09-25 15:38] LABS: Creatine Kinase MB 2.2 ng/mL (0.0-2.4); Troponin I <0.012 ng/mL (0.000-0.034)
[2018-09-25] MEDS ORDERED: HYDROmorphone 0.5 MG/0.5 ML SYRINGE IVP STA (16:11)
[2018-09-25] MEDS ORDERED: HYDROmorphone 1 MG/ML 1 ML SYRINGE IVP STA (16:22)
--- NOTE | 2018-09-25 16:25 | CT ---
EXAMINATION TYPE: CT brain jurgen wo con DATE OF EXAM: 09/25/2018 COMPARISON: None HISTORY: 83-year-old female with pain after Fall injury CT DLP: 1537.6 mGycm Automated exposure control for dose reduction was used. Technique: Examination of the head was done in axial plane without intravenous contrast. Coronal and sagittal reconstructions performed. CT of the cervical spine was obtained in axial plane without intravenous injection of contrast mater ial. Coronal and sagittal reformatted images were obtained from the axial views for evaluation of f ractures, spinal alignment and canal. FINDINGS: Head: There is no evidence of acute intracranial hemorrhage, acute ischemic changes, mass, mass-effect, or extra-axial fluid collection. There is no effacement of cerebral sulci or basal subarachnoid cister ns. There is no hydrocephalus. There is no midline shift. Farmer-white matter distinction is preserv ed. Atherosclerotic calcifications within the carotid siphons. Mild generalized supratentorial volume loss. No calvarial fracture. Visualized paranasal sinuses and mastoid air cells are well pneumatized. Orbits and globes appear intact. Cervical spine: Mild centrilobular emphysema. No prevertebral or paravertebral soft tissue abnormality seen. No craniocervical junction abnormalities, predental space widening, or prevertebral soft tissue swell ing. Degenerative changes at the C1 dens articulation. Discussed by complex cyst with mild to moderate multilevel degenerative disc disease. Scattered ligam entum flavum thickening as well. Changes likely result in multilevel mild spinal canal stenosis. There is preserved alignment of the cervical spine. No acute fracture is seen. Scattered facet arthropathy particularly on the left.. There is [id number] right-sided neurofor aminal stenosis at C5-C6. Sagittal and coronal reformatted images confirm above findings. COMBINED IMPRESSION: 1. No acute intracranial abnormality seen. Mild generalized atrophy. 2. No acute fracture or malalignment of the cervical spine. Mild to moderate spondylotic change.
--- NOTE | 2018-09-25 17:31 | XR ---
EXAMINATION TYPE: XR chest 2V DATE OF EXAM: 09/25/2018 COMPARISON: May 14, 2018 HISTORY: Pain after falling TECHNIQUE: Frontal and lateral views of the chest are obtained. FINDINGS: There is no heart failure. There is some blunting of left costophrenic angle. There is ruy ear density at the lung bases. There is left axillary pacemaker with lead tips in the right ventricle . Thoracic aorta is atheromatous. There are old right-sided rib fractures. IMPRESSION: Subsegmental atelectasis. This is increased slightly compared to last exam. There is rachna aring of the pleural thickening on the right lateral chest wall compared to old exam. No pneumothorax .
--- NOTE | 2018-09-25 17:35 | XR ---
EXAMINATION TYPE: XR shoulder complete RT DATE OF EXAM: 09/25/2018 COMPARISON: NONE HISTORY: Pain after falling TECHNIQUE: 4 views. There is an acute transverse fracture of the right humeral neck. There is no dislocation. The scapula appears intact. There are multiple old right-sided healed rib fractures. Impression Acute fracture right humeral neck.
--- NOTE | 2018-09-25 17:37 | XR ---
EXAMINATION TYPE: XR elbow complete RT DATE OF EXAM: 09/25/2018 COMPARISON: NONE HISTORY: Pain after falling TECHNIQUE: 3 views FINDINGS: I see no fracture nor dislocation. Elbow joint spaces are fairly normal. IMPRESSION: Negative right elbow exam.
--- NOTE | 2018-09-25 17:38 | XR ---
EXAMINATION TYPE: XR wrist complete RT DATE OF EXAM: 09/25/2018 COMPARISON: NONE HISTORY: Pain after falling TECHNIQUE: 4 views FINDINGS: There is narrowing and spurring at the first carpometacarpal joint. The radiocarpal joint i s intact. There is calcification of the triangular cartilage. There is vascular calcification. IMPRESSION: Osteoarthritis. No fracture seen.
[2018-09-25] MEDS ORDERED: HYDROmorphone 1 MG/ML 1 ML SYRINGE IVP PRN (18:15)
[2018-09-25] MEDS ORDERED: SODIUM CHLORIDE 0.9% 1,000 ML IV ONE (18:15)
[2018-09-25] MEDS ORDERED: ONDANSETRON 4 MG/2 ML VIAL IVP STA (18:17)
[2018-09-25] MEDS ORDERED: ONDANSETRON 4 MG/2 ML VIAL IVP PRN (18:17)
[2018-09-25] MEDS ORDERED: SENNOSIDES-DOCUSATE SODIUM 1 EACH TAB PO PRN (21:33)
[2018-09-25] MEDS ORDERED: NALOXONE 0.4 MG/ML 1 ML VIAL IV PRN (21:35)
[2018-09-25 21:45] LABS: Glucose,Whole Blood 315 mg/dL (75-99)
[2018-09-25] MEDS: INSULIN ASPART 100 UNIT/ML 1 ML 10 ML VIAL SQ SCH (22:10)
[2018-09-25] MEDS: GABAPENTIN 100 MG CAP PO SCH (22:10)
--- NOTE | 2018-09-25 22:17 | P.HPIM ---
History of Present Illness H&P Date: 09/25/18 Chief Complaint: Fall and right hip pain 83-year-old female with history of A. fib, diabetes mellitus. Patient presented to the hospital after sustaining a fall. She reported that she woke up this morning was trying to go to the bathroom she uses a walker to ambulate however she tripped with her nightgown and fell to the ground she couldn't get up one of the neighbors heard the thud came checking on her and found her notified EMS and was brought to the hospital. Patient admits to hitting her head but denies any loss of consciousness nausea or vomiting she denies any symptoms of dizziness lightheadedness chest pain or trouble breathing or palpitations before or after the fall. She reports that was most likely due to tripping with her nightgown. She denies loss of bladder or bowel control she denies any history of seizures. Currently she reports no pain after getting pain medications in the ER. Patient overall denies any fevers chills coughing chest pain trouble breathing denies any GI bleeding denies any abdominal pain. Patient has chronic left foot ulcer that she sees vascular surgery at wound clinic. Patient daughter notified RN that she is not in favor of surgical options. In the ER patient was found to have acute fracture of the right femoral neck, was admitted for further evaluation by orthopedics. Review of Systems Pertinent positives as noted in HPI. All other systems were reviewed and are negative Past Medical History Past Medical History: Atrial Fibrillation, Coronary Artery Disease (CAD), Cancer , Diabetes Mellitus, GERD/Reflux, Hearing Disorder / Deafness, Hyperlipidemia, Hypertension, Osteoarthritis (OA) Additional Past Medical History / Comment(s): diverticultis, rt arm fx, cervical cancer, pancreatitis, right foot infection, gall stones and removal, FALL/fx coccyx 08-29-17, CONSTIPATION, PAD, RT FOOT (great toe) WOUND HAS BEEN GOING TO THE [facility] , [facility],lt. foot wound History of Any Multi-Drug Resistant Organisms: None Reported Date of last positivie culture/infection: None MDRO Source:: None Past Surgical History: AICD, Bowel Resection, Cholecystectomy, Heart Catheterization, Hysterectomy, Orthopedic Surgery Additional Past Surgical History / Comment(s): Internal defibulator 18, LT ROTATOR CUFF X2, BUNIONECTOMY JACQUELINE,, JACQUELINE BREAST LUMPECTOMIES-BOTH NEG,, X2 ERCP, RT HAND SX PINS PLACED-BUT SINCE REMOVED, CATARACTS. 12/01/17 picc line inserted- since removed Past Anesthesia/Blood Transfusion Reactions: No Reported Reaction Type of Cardiac Device: AICD Device Placement Date:: 09-15-17 Past Psychological History: No Psychological Hx Reported Smoking Status: Former smoker Past Alcohol Use History: None Reported Past Drug Use History: None Reported - Past Family History Mother Family Medical History: No Reported History Additional Family Medical History / Comment(s): HEART DISEASE Father Family Medical History: Coronary Artery Disease (CAD), Diabetes Mellitus Medications and Allergies Home Medications Medication Instructions Recorded Confirmed Type Pentoxifylline 400 mg PO TID 12/13/16 09/25/18 History Sertraline HCl [Zoloft] 25 mg PO DAILY 12/13/16 09/25/18 History Vit C/E/Zn/Coppr/Lutein/Zeaxan 1 cap PO DAILY@0600 11/10/17 09/25/18 History [Preservision Areds 2 Softgel] metFORMIN HCL 1,000 mg PO BID 11/10/17 09/25/18 History Acetaminophen Tab [Tylenol] 650 mg PO Q6HR tab 03/24/18 09/25/18 Rx Aspirin 81 mg PO DAILY #0 chew 04/03/18 09/25/18 Rx Furosemide [Lasix] 40 mg PO BID@0900,1600 tab 04/03/18 09/25/18 Rx Diltiazem Oral [Cardizem Oral] 30 mg PO ACHS 09/25/18 09/25/18 History Ergocalciferol [Vitamin D2] 50,000 unit PO Q7D 09/25/18 09/25/18 History Gabapentin [Neurontin] 200 mg PO TID 09/25/18 09/25/18 History INSULIN LISPRO (HumaLOG) [HumaLOG] See Protocol [facility] 09/25/18 09/25/18 History Ibuprofen [Motrin Ib] 200 mg PO BID 09/25/18 09/25/18 History Lisinopril-Hctz 20-25 mg 1 tab PO DAILY 09/25/18 09/25/18 History [Zestoretic 20-25] Magnesium Oxide [Mag-Ox] 400 mg PO BID 09/25/18 09/25/18 History Omeprazole 40 mg PO DAILY 09/25/18 09/25/18 History Sennosides/Docusate Sodium 1 tab PO BID PRN 09/25/18 09/25/18 History [Senna-S Laxative Tablet] Thiamine [Vitamin B-1] 100 mg PO DAILY 09/25/18 09/25/18 History Tolterodine Tartrate [Detrol LA] 4 mg PO DAILY 09/25/18 09/25/18 History Trospium Chloride 20 mg PO HS 09/25/18 09/25/18 History Vitamin B Complex 1 cap PO DAILY 09/25/18 09/25/18 History Allergies Allergy/AdvReac Type Severity Reaction Status Date / Time levofloxacin [From Levaquin] Allergy Mild Rash/Hives Verified 09/25/18 14:13 morphine Allergy Rapid Verified 09/25/18 14:13 Heart Rate Physical Exam Vitals: Vital Signs Temp Pulse Resp BP Pulse Ox 09/25/18 18:33 97.1 F L 71 19 130/67 93 L 09/25/18 16:24 86 18 98/83 93 L 09/25/18 13:19 98.7 F 77 18 134/94 95 Intake and Output 09/25/18 09/25/18 09/25/18 06:59 14:59 22:59 Other: Weight 71.668 kg Constitutional: No acute distress, conversant, pleasant, sleepy but easily arousable and patient maintaining alertness Eyes: Anicteric sclerae, moist conjunctiva, no lid-lag Pupils equal round reactive to light ENMT: NC/AT Oropharynx clear, no erythema, exudates Neck: Supple, FROM, no masses, or JVD No carotid bruits No thyromegaly Lungs: Clear to auscultation Clear to percussion Normal respiratory effort, no accessory muscle use Cardiovascular: Heart regular in rate and rhythm, No murmurs, gallops, or rubs No peripheral edema Abdominal: Soft Nontender, no guarding, rebound or rigidity Abdomen moving with respiration Normoactive bowel sounds No hepatomegaly, No splenomegaly No palpable mass Skin: Normal temperature, tone, texture, turgor No induration No subcutaneous nodules No rash, lesions Left foot ulcer 2 x 2 centimeter over the medial aspect of the first metatarsal bone, slight erythema surrounding the ulcer no tenderness to palpation, no induration, ulcer bed is covered with yellowish discharge no granulation tissue is visible 1 cm crack over the medial aspect of the left heel again no induration or erythema no drainage Extremities: No digital cyanosis No clubbing Pedal pulses week and symmetrical Radial pulses intact and symmetrical No calf tenderness Psychiatric: Alert and oriented to person, place and not to time Appropriate affect fair judgment Neuro Muscles Strength 3-4/5 in all 4 extremities except for limited exam over the right lower extremity due to acute fracture Sensation to light touch grossly present throughout Cranial nerves II-XII grossly intact, hearing aid in place No focal sensory deficits Lymphatics: no palpable cervical or supraclavicular , or inguinal lymph nodes Results CBC & Chem 7: 09/25/18 14:29 09/25/18 14:29 Labs: Abnormal Lab Results - Last 24 Hours (Table) 09/25/18 09/25/18 09/25/18 Range/Units 14:29 14:29 14:29 WBC 11.1 H (3.8-10.6) k/uL Neutrophils # 9.4 H (1.3-7.7) k/uL Lymphocytes # 0.8 L (1.0-4.8) k/uL APTT 21.9 L (22.0-30.0) sec Potassium 5.2 H (3.5-5.1) mmol/L Carbon Dioxide 33 H (22-30) mmol/L BUN 37 H (7-17) mg/dL Glucose 277 H (74-99) mg/dL Urine Protein (Negative) Urine Glucose (UA) (Negative) Ur Leukocyte Esterase (Negative) 09/25/18 Range/Units 14:51 WBC (3.8-10.6) k/uL Neutrophils # (1.3-7.7) k/uL Lymphocytes # (1.0-4.8) k/uL APTT (22.0-30.0) sec Potassium (3.5-5.1) mmol/L Carbon Dioxide (22-30) mmol/L BUN (7-17) mg/dL Glucose (74-99) mg/dL Urine Protein Trace H (Negative) Urine Glucose (UA) 1+ H (Negative) Ur Leukocyte Esterase Moderate H (Negative) Assessment and Plan Assessment: 83-year-old female with history of diabetes mellitus, admitted as an inpatient with anticipated length of stay more than 2 days due to acute right femoral neck fracture secondary to mechanical fall. Patient denies any loss of consciousness. Patient also has history of diabetes mellitus, and hypertension. Await further orthopedic evaluation. una also has chronic left foot diabetic foot ulcer, await further evaluation from vascular surgery who sees her as OP. Plan: Acute right femoral neck fracture secondary to mechanical fall Pain control DVT prophylaxis with Lovenox Await orthopedic evaluation Per our and patient daughter was not in favor of surgical options Leukocytosis most likely reactive to above Left foot diabetic ulcer Chronic, outpatient follow-up with vascular surgery Consult to vascular surgery for further evaluation Wound care Chronic conditions History of A. fib, continue Cardizem Hypertension, continue home meds with hold parameters Diabetes mellitus, insulin sliding scale CAD, continue home meds Peripheral vascular disease DVT prophylaxis Lovenox subcu Functional status, patient uses assistive device for ambulation PT/OT evaluation Surrogate decision-maker: Patient daughter CODE STATUS: Full code Discussed with: Patient, ER, RN Anticipated discharge: 48-[address]: Short-term rehab facility A total of 60 minutes was spent on the care of this complex patient more than 50 % of the time was spent in counseling and care coordination.
--- NOTE | 2018-09-25 22:22 | P.HPADDEND ---
H&P Addendum H&P Addendum Date: 09/25/18 History of Present Illness H&P Date: 09/25/18 Chief Complaint: Fall and right side pain 83-year-old female with history of A. fib, diabetes mellitus. Patient presented to the hospital after sustaining a fall. She reported that she woke up this morning was trying to go to the bathroom she uses a walker to ambulate however she tripped with her nightgown and fell to the ground she couldn't get up one of the neighbors heard the thud came checking on her and found her notified EMS and was brought to the hospital. Patient admits to hitting her head but denies any loss of consciousness nausea or vomiting she denies any symptoms of dizziness lightheadedness chest pain or trouble breathing or palpitations before or after the fall. She reports that was most likely due to tripping with her nightgown. She denies loss of bladder or bowel control she denies any history of seizures. Currently she reports no pain after getting pain medications in the ER. Patient overall denies any fevers chills coughing chest pain trouble breathing denies any GI bleeding denies any abdominal pain. Patient has chronic left foot ulcer that she sees vascular surgery at wound clinic. Patient daughter notified RN that she is not in favor of surgical options. In the ER patient was found to have acute fracture of the right humeral neck, CT of the head was negative for any acute process , she was admitted for further evaluation by orthopedics. Review of Systems Pertinent positives as noted in HPI. All other systems were reviewed and are negative Past Medical History Past Medical History: Atrial Fibrillation, Coronary Artery Disease (CAD), Cancer , Diabetes Mellitus, GERD/Reflux, Hearing Disorder / Deafness, Hyperlipidemia, Hypertension, Osteoarthritis (OA) Additional Past Medical History / Comment(s): diverticultis, rt arm fx, cervical cancer, pancreatitis, right foot infection, gall stones and removal, FALL/fx coccyx 12-18-17, CONSTIPATION, PAD, RT FOOT (great toe) WOUND HAS BEEN GO[facility] TO [facility] , [place],lt. foot wound History of Any Multi-Drug Resistant Organisms: None Reported Date of last positivie culture/infection: None MDRO Source:: None Past Surgical History: AICD, Bowel Resection, Cholecystectomy, Heart Catheterization, Hysterectomy, Orthopedic Surgery Additional Past Surgical History / Comment(s): Internal defibulator 09-15-17, LT ROTATOR CUFF X2, BUNIONECTOMY JACQUELINE,, JACQUELINE BREAST LUMPECTOMIES-BOTH NEG,, X2 ERCP, RT HAND SX PINS PLACED-BUT SINCE REMOVED, CATARACTS. 12/01/17 picc line inserted- since removed Past Anesthesia/Blood Transfusion Reactions: No Reported Reaction Type of Cardiac Device: AICD Device Placement Date:: 09-15-17 Past Psychological History: No Psychological Hx Reported Smoking Status: Former smoker Past Alcohol Use History: None Reported Past Drug Use History: None Reported - Past Family History Mother Family Medical History: No Reported History Additional Family Medical History / Comment(s): HEART DISEASE Father Family Medical History: Coronary Artery Disease (CAD), Diabetes Mellitus Medications and Allergies Home Medications Medication Instructions Recorded Confirmed Type Pentoxifylline 400 mg PO TID 12/13/16 09/25/18 History Sertraline HCl [Zoloft] 25 mg PO DAILY 12/13/16 09/25/18 History Vit C/E/Zn/Coppr/Lutein/Zeaxan 1 cap PO DAILY@0600 11/10/17 09/25/18 History [Preservision Areds 2 Softgel] metFORMIN HCL 1,000 mg PO BID 11/10/17 09/25/18 History Acetaminophen Tab [Tylenol] 650 mg PO Q6HR tab 03/24/18 09/25/18 Rx Aspirin 81 mg PO DAILY #0 chew 04/03/18 09/25/18 Rx Furosemide [Lasix] 40 mg PO BID@0900,1600 tab 04/03/18 09/25/18 Rx Diltiazem Oral [Cardizem Oral] 30 mg PO ACHS 09/25/18 09/25/18 History Ergocalciferol [Vitamin D2] 50,000 unit PO Q7D 09/25/18 09/25/18 History Gabapentin [Neurontin] 200 mg PO TID 09/25/18 09/25/18 History INSULIN LISPRO (HumaLOG) [HumaLOG] See Protocol [facility] 09/25/18 09/25/18 History Ibuprofen [Motrin Ib] 200 mg PO BID 09/25/18 09/25/18 History Lisinopril-Hctz 20-25 mg 1 tab PO DAILY 09/25/18 09/25/18 History [Zestoretic 20-25] Magnesium Oxide [Mag-Ox] 400 mg PO BID 09/25/18 09/25/18 History Omeprazole 40 mg PO DAILY 09/25/18 09/25/18 History Sennosides/Docusate Sodium 1 tab PO BID PRN 09/25/18 09/25/18 History [Senna-S Laxative Tablet] Thiamine [Vitamin B-1] 100 mg PO DAILY 09/25/18 09/25/18 History Tolterodine Tartrate [Detrol LA] 4 mg PO DAILY 09/25/18 09/25/18 History Trospium Chloride 20 mg PO HS 09/25/18 09/25/18 History Vitamin B Complex 1 cap PO DAILY 09/25/18 09/25/18 History Allergies Allergy/AdvReac Type Severity Reaction Status Date / Time levofloxacin [From Levaquin] Allergy Mild Rash/Hives Verified 09/25/18 14:13 morphine Allergy Rapid Verified 09/25/18 14:13 Heart Rate Physical Exam Vitals: Vital Signs Temp Pulse Resp BP Pulse Ox 09/25/18 18:33 97.1 F L 71 19 130/67 93 L 09/25/18 16:24 86 18 98/83 93 L 09/25/18 13:19 98.7 F 77 18 134/94 95 Intake and Output 09/25/18 09/25/18 09/25/18 06:59 14:59 22:59 Other: Weight 71.668 kg Constitutional: No acute distress, conversant, pleasant, sleepy but easily arousable and patient maintaining alertness Eyes: Anicteric sclerae, moist conjunctiva, no lid-lag Pupils equal round reactive to light ENMT: NC/AT Oropharynx clear, no erythema, exudates Neck: Supple, FROM, no masses, or JVD No carotid bruits No thyromegaly Lungs: Clear to auscultation Clear to percussion Normal respiratory effort, no accessory muscle use Cardiovascular: Heart regular in rate and rhythm, No murmurs, gallops, or rubs No peripheral edema Abdominal: Soft Nontender, no guarding, rebound or rigidity Abdomen moving with respiration Normoactive bowel sounds No hepatomegaly, No splenomegaly No palpable mass Skin: Normal temperature, tone, texture, turgor No induration No subcutaneous nodules No rash, lesions Left foot ulcer 2 x 2 centimeter over the medial aspect of the first metatarsal bone, slight erythema surrounding the ulcer no tenderness to palpation, no induration, ulcer bed is covered with yellowish discharge no granulation tissue is visible 1 cm crack over the medial aspect of the left heel again no induration or erythema no drainage Extremities: No digital cyanosis No clubbing Pedal pulses week and symmetrical Radial pulses intact and symmetrical No calf tenderness Psychiatric: Alert and oriented to person, place and not to time Appropriate affect fair judgment Neuro Muscles Strength 3-4/5 in all 4 extremities except for limited exam over the right upper extremity due to acute fracture Sensation to light touch grossly present throughout Cranial nerves II-XII grossly intact, hearing aid in place No focal sensory deficits Lymphatics: no palpable cervical or supraclavicular , or inguinal lymph nodes Results CBC & Chem 7: 09/25/18 14:29 09/25/18 14:29 Labs: Abnormal Lab Results - Last 24 Hours (Table) 09/25/18 09/25/18 09/25/18 Range/Units 14:29 14:29 14:29 WBC 11.1 H (3.8-10.6) k/uL Neutrophils # 9.4 H (1.3-7.7) k/uL Lymphocytes # 0.8 L (1.0-4.8) k/uL APTT 21.9 L (22.0-30.0) sec Potassium 5.2 H (3.5-5.1) mmol/L Carbon Dioxide 33 H (22-30) mmol/L BUN 37 H (7-17) mg/dL Glucose 277 H (74-99) mg/dL Urine Protein (Negative) Urine Glucose (UA) (Negative) Ur Leukocyte Esterase (Negative) 09/25/18 Range/Units 14:51 WBC (3.8-10.6) k/uL Neutrophils # (1.3-7.7) k/uL Lymphocytes # (1.0-4.8) k/uL APTT (22.0-30.0) sec Potassium (3.5-5.1) mmol/L Carbon Dioxide (22-30) mmol/L BUN (7-17) mg/dL Glucose (74-99) mg/dL Urine Protein Trace H (Negative) Urine Glucose (UA) 1+ H (Negative) Ur Leukocyte Esterase Moderate H (Negative) Assessment and Plan Assessment: 83-year-old female with history of diabetes mellitus, admitted as an inpatient with anticipated length of stay more than 2 days due to acute right humeral neck fracture secondary to mechanical fall. Patient denies any loss of consciousness. Patient also has history of diabetes mellitus, and hypertension. Await further orthopedic evaluation. una also has chronic left foot diabetic foot ulcer, await further evaluation from vascular surgery who sees her as OP. Plan: Acute right humeral neck fracture secondary to mechanical fall Pain control DVT prophylaxis with Lovenox Await orthopedic evaluation Per RN , patient daughter was not in favor of surgical options Leukocytosis most likely reactive to above Left foot diabetic ulcer Chronic, outpatient follow-up with vascular surgery Consult to vascular surgery for further evaluation Wound care Chronic conditions History of A. fib, continue Cardizem Hypertension, continue home meds with hold parameters Diabetes mellitus, insulin sliding scale CAD, continue home meds Peripheral vascular disease DVT prophylaxis Lovenox subcu Functional status, patient uses assistive device for ambulation PT/OT evaluation Surrogate decision-maker: Patient daughter CODE STATUS: Full code Discussed with: Patient, ER, RN Anticipated discharge: 48-[address]: Short-term rehab facility A total of 60 minutes was spent on the care of this complex patient more than 50 % of the time was spent in counseling and care coordination.
[2018-09-25 22:29] VITALS: BMI 28.0
[2018-09-26] MEDS: ACETAMINOPHEN TAB 325 MG TAB PO SCH ×5 (02:11→23:48)
[2018-09-26 07:04] LABS: Glucose,Whole Blood 315 mg/dL (75-99)
[2018-09-26 07:22] LABS: Basophils % (A) 0 %; Eosinophils % (A) 0 %; HGB 12.5 gm/dL (11.4-16.0); Lymphocytes # (A) 1.1 k/uL (1.0-4.8); Lymphocytes % (A) 12 %; MCV 94.1 fL (80.0-100.0); Mean Platelet Volume 7.6; Monocytes # (A) 0.9 k/uL (0-1.0); Monocytes % (A) 10 %; Neutrophils # (A) 7.1 k/uL (1.3-7.7); Neutrophils % (A) 77 %; Platelet Count 170 k/uL (150-450); RBC 4.04 m/uL (3.80-5.40); RDW 15.4 % (11.5-15.5); WBC 9.3 k/uL (3.8-10.6)
--- NOTE | 2018-09-26 07:26 | P.CNOR ---
History of Present Illness - [facility] Consult date: 09/26/18 Consult reason: fracture (Right proximal humerus) History of present illness: The patient is an 83-year-old female who presents with right shoulder pain after a fall yesterday. She claims she lives at home and normally uses a walker. She denied loss of consciousness. Review of Systems Musculoskeletal: right: shoulder pain Past Medical History Past Medical History: Atrial Fibrillation, Coronary Artery Disease (CAD), Cancer , Diabetes Mellitus, GERD/Reflux, Hearing Disorder / Deafness, Hyperlipidemia, Hypertension, Osteoarthritis (OA) Additional Past Medical History / Comment(s): diverticultis, rt arm fx, cervical cancer, pancreatitis, right foot infection, gall stones and removal, FALL/fx coccyx 08-29-17, CONSTIPATION, PAD, RT FOOT (great toe) WOUND HAS BEEN GOING TO THE [facility] , PAST [place],lt. foot wound History of Any Multi-Drug Resistant Organisms: None Reported Year Discovered:: None MDRO Source:: None Past Surgical History: AICD, Bowel Resection, Cholecystectomy, Heart Catheterization, Hysterectomy, Orthopedic Surgery (Right rotator cuff surgery) Additional Past Surgical History / Comment(s): Internal defibulator 09-15-17, LT ROTATOR CUFF X2, BUNIONECTOMY JACQUELINE,, JACQUELINE BREAST LUMPECTOMIES-BOTH NEG,, X2 ERCP, RT HAND SX PINS PLACED-BUT SINCE REMOVED, CATARACTS. 12/01/17 picc line inserted- since removed Past Anesthesia/Blood Transfusion Reactions: No Reported Reaction Type of Cardiac Device: AICD Device Placement Date:: 09-15-17 Past Psychological History: No Psychological Hx Reported Additional Psychological History / Comment(s): [facility] 3 TIMES A WEEK.USES WALKER OR 4 PRONG CANE. also has a walker, glucometer and monitor for the aicd. Smoking Status: Former smoker Past Alcohol Use History: None Reported Additional Past Alcohol Use History / Comment(s): Smoked sporadically from 1964 till 1967 Past Drug Use History: None Reported - Past Family History Mother Family Medical History: No Reported History Additional Family Medical History / Comment(s): HEART DISEASE Father Family Medical History: Coronary Artery Disease (CAD), Diabetes Mellitus Medications and Allergies Home Medications Medication Instructions Recorded Confirmed Type Pentoxifylline 400 mg PO TID 12/13/16 09/25/18 History Sertraline HCl [Zoloft] 25 mg PO DAILY 12/13/16 09/25/18 History Vit C/E/Zn/Coppr/Lutein/Zeaxan 1 cap PO DAILY@0600 11/10/17 09/25/18 History [Preservision Areds 2 Softgel] metFORMIN HCL 1,000 mg PO BID 11/10/17 09/25/18 History Acetaminophen Tab [Tylenol] 650 mg PO Q6HR tab 03/24/18 09/25/18 Rx Aspirin 81 mg PO DAILY #0 chew 04/03/18 09/25/18 Rx Furosemide [Lasix] 40 mg PO BID@0900,1600 tab 04/03/18 09/25/18 Rx Diltiazem Oral [Cardizem Oral] 30 mg PO ACHS 09/25/18 09/25/18 History Ergocalciferol [Vitamin D2] 50,000 unit PO Q7D 09/25/18 09/25/18 History Gabapentin [Neurontin] 200 mg PO TID 09/25/18 09/25/18 History INSULIN LISPRO (HumaLOG) [HumaLOG] See Protocol [facility] 09/25/18 09/25/18 History Ibuprofen [Motrin Ib] 200 mg PO BID 09/25/18 09/25/18 History Lisinopril-Hctz 20-25 mg 1 tab PO DAILY 09/25/18 09/25/18 History [Zestoretic 20-25] Magnesium Oxide [Mag-Ox] 400 mg PO BID 09/25/18 09/25/18 History Omeprazole 40 mg PO DAILY 09/25/18 09/25/18 History Sennosides/Docusate Sodium 1 tab PO BID PRN 09/25/18 09/25/18 History [Senna-S Laxative Tablet] Thiamine [Vitamin B-1] 100 mg PO DAILY 09/25/18 09/25/18 History Tolterodine Tartrate [Detrol LA] 4 mg PO DAILY 09/25/18 09/25/18 History Trospium Chloride 20 mg PO HS 09/25/18 09/25/18 History Vitamin B Complex 1 cap PO DAILY 09/25/18 09/25/18 History Allergies Allergy/AdvReac Type Severity Reaction Status Date / Time levofloxacin [From Levaquin] Allergy Mild Rash/Hives Verified 09/25/18 14:13 morphine Allergy Rapid Verified 09/25/18 14:13 Heart Rate Physical Examination - Fracture right shoulder Location of fracture: Right proximal humerus, limited range of motion right shoulder Appearance: swelling (Moderate, tender proximal humerus, nontender AC/SC joints) Distal extremity neurovascularly intact: Yes Distal joint involvement: No (Nontender right elbow and wrist) Results - Labs Labs: Abnormal Lab Results - Last 24 Hours (Table) 09/25/18 09/25/18 09/25/18 Range/Units 14:29 14:29 14:29 WBC 11.1 H (3.8-10.6) k/uL Neutrophils # 9.4 H (1.3-7.7) k/uL Lymphocytes # 0.8 L (1.0-4.8) k/uL APTT 21.9 L (22.0-30.0) sec Potassium 5.2 H (3.5-5.1) mmol/L Carbon Dioxide 33 H (22-30) mmol/L BUN 37 H (7-17) mg/dL Glucose 277 H (74-99) mg/dL POC Glucose (mg/dL) (75-99) mg/dL Urine Protein (Negative) Urine Glucose (UA) (Negative) Ur Leukocyte Esterase (Negative) 09/25/18 09/25/18 09/26/18 Range/Units 14:51 21:34 07:03 WBC (3.8-10.6) k/uL Neutrophils # (1.3-7.7) k/uL Lymphocytes # (1.0-4.8) k/uL APTT (22.0-30.0) sec Potassium (3.5-5.1) mmol/L Carbon Dioxide (22-30) mmol/L BUN (7-17) mg/dL Glucose (74-99) mg/dL POC Glucose (mg/dL) 315 H 315 H (75-99) mg/dL Urine Protein Trace H (Negative) Urine Glucose (UA) 1+ H (Negative) Ur Leukocyte Esterase Moderate H (Negative) Microbiology - Last 24 Hours (Table) 09/25/18 14:51 Urine Culture - Preliminary Urine,Voided H & H 09/25/18 Range/Units 14:29 Hgb 13.2 (11.4-16.0) gm/dL Hct 41.6 (34.0-46.0) % Coagulation 09/25/18 Range/Units 14:29 INR 1.0 (<1.2) Result Diagrams: 09/25/18 14:29 09/25/18 14:29 - Diagnostic results Shoulder x-ray: image reviewed (Mildly displaced right proximal humerus fracture involving the anatomic neck) Assessment and Plan Assessment: Right proximal humerus fractureanatomic neck Insulin dependent diabetes with neuropathy/foot ulcers Atrial fibrillation Multiple medical comorbidities Plan: I talked with the patient regarding her condition and treatment options. At this point we will try initial conservative measures with use of a sling. She can ambulate once medically stable with a left-handed cane. We'll have her follow-up in the office in 1 week for reassessment.
[2018-09-26] MEDS ORDERED: INSULIN ASPART 100 UNIT/ML 1 ML 10 ML VIAL SQ SCH (07:30)
[2018-09-26 07:52] LABS: Calcium 9.1 mg/dL (8.4-10.2); Magnesium 1.7 mg/dL (1.6-2.3); Total Bilirubin 0.9 mg/dL (0.2-1.3); Total Protein 5.5 g/dL (6.3-8.2)
[2018-09-26] MEDS: HYDROmorphone 1 MG/ML 1 ML SYRINGE IVP PRN (08:11)
[2018-09-26] MEDS: INSULIN ASPART 100 UNIT/ML 1 ML 10 ML VIAL SQ SCH ×4 (08:17→20:46)
[2018-09-26] MEDS: ENOXAPARIN 40 MG/0.4 ML SYRINGE SQ SCH (08:17)
[2018-09-26] MEDS: LISINOPRIL-HCTZ 20-25 MG 1 EACH TAB PO SCH (09:35)
[2018-09-26] MEDS: GABAPENTIN 100 MG CAP PO SCH ×3 (09:35→22:31)
[2018-09-26] MEDS: OXYBUTYNIN 10 MG TAB.ER.24 PO SCH (09:35)
[2018-09-26] MEDS: ASPIRIN 81 MG PO SCH (09:35)
[2018-09-26] MEDS: PANTOPRAZOLE 40 MG TABLET PO SCH (09:35)
[2018-09-26 11:52] LABS: Glucose,Whole Blood 387 mg/dL (75-99)
--- NOTE | 2018-09-26 15:42 | P.PN ---
Subjective Progress Note Date: 09/26/18 The patient was seen and examined with daughter at the bedside. She continues to have R shuolder pain but otherwise denied any active complaints. She denied fever, chills, chest pain, SOB, nausea, vomiting, dizziness, headache, or dysuria. Objective - Vital Signs Vital signs: Vital Signs Temp 98.2 F 09/26/18 08:20 Pulse 76 09/26/18 08:20 Resp 14 09/26/18 08:20 BP 148/70 09/26/18 08:20 Pulse Ox 94 L 09/26/18 08:20 Intake & Output 09/25/18 09/26/18 09/26/18 18:59 06:59 18:59 Intake Total 1200 236 Balance 1200 236 Weight 71.668 kg 71.668 kg Intake: Intake, IV Titration 900 Amount Sodium Chloride 0.9% 1, 900 000 ml @ 100 mls/hr IV . Q10H ONE Rx#:[id number] Oral 300 236 Other: # Voids 2 - Exam General: Non-toxic, in no acute distress, appears stated age HEENT: NC/AT, anicteric sclerae, moist conjunctiva, no lid-lag, PERRLA Cardiovascular: S1/S2 wnl, no murmurs, rubs, or gallops Lungs: Clear to auscultation, normal respiratory effort, no accessory muscle use Abdominal: Soft, nontender, non-distended, no guarding, rebound, or rigidity Skin: Warm, dry Extremities: R arm medial aspect bruising, w/ tenderness, limited ROM of elbow and shoulder, able to make fist and has full ROM of wrist, radial pulses intact Psychiatric: Oriented only to person and place Neuro: CN II-XII grossly intact, Speech intact, Sensation to light touch grossly intact throughout - Labs CBC & Chem 7: 09/26/18 06:51 09/26/18 06:51 Labs: Abnormal Lab Results - Last 24 Hours (Table) 09/25/18 09/25/18 09/25/18 Range/Units 14:29 14:51 21:34 APTT 21.9 L (22.0-30.0) sec Chloride (98-107) mmol/L BUN (7-17) mg/dL Glucose (74-99) mg/dL POC Glucose (mg/dL) 315 H (75-99) mg/dL Total Protein (6.3-8.2) g/dL Albumin (3.5-5.0) g/dL Urine Protein Trace H (Negative) Urine Glucose (UA) 1+ H (Negative) Ur Leukocyte Esterase Moderate H (Negative) 09/26/18 09/26/18 09/26/18 Range/Units 06:51 07:03 11:50 APTT (22.0-30.0) sec Chloride 108 H (98-107) mmol/L BUN 38 H (7-17) mg/dL Glucose 314 H (74-99) mg/dL POC Glucose (mg/dL) 315 H 387 H (75-99) mg/dL Total Protein 5.5 L (6.3-8.2) g/dL Albumin 3.0 L (3.5-5.0) g/dL Urine Protein (Negative) Urine Glucose (UA) (Negative) Ur Leukocyte Esterase (Negative) Microbiology - Last 24 Hours (Table) 09/25/18 14:51 Urine Culture - Preliminary Urine,Voided Assessment and Plan Plan: Acute R humeral neck fracture -Orthopedic recs appreciated -C/w pain control and conservative measures w/ arm sling -Patient recommended for Rehab since she uses walker. Awaiting placement. Bilateral diabetic foot ulcers -Vascular surgery consults in place Chronic A-fib -C/w home meds: Cardizem, Aspirin HTN, CAD -C/w home meds DM -TIN with FS DVT prophy -Lovenox Discussed with: Patient, daughter Anticipated discharge date: 09/28/[address]: Rehab facility A total of 35 minutes was spent on the care of this complex patient more than 50 % of the time was spent in counseling and care coordination.
--- NOTE | 2018-09-26 16:45 | CONS ---
DATE OF CONSULTATION: 09/26/2018 This is an 83-year-old female, well known to me from the wound clinic. She has been coming to the wound clinic for local wound care of left foot big toe chronic wound. The patient has history of diabetes, coronary artery disease, peripheral vascular disease and atrial fibrillation, chronic wound of left foot big toe. The patient came because patient had a fracture of the humerus. The patient has a sling. PHYSICAL EXAMINATION: NECK: Supple. Trachea central. CHEST: Clear on auscultation. Femorals are 1+ bilaterally. Posterior tibial pulses were not palpable. Left foot big toe has a chronic wound. PLAN: We have been using Santyl cream. If the patient goes home, we will follow her in the wound clinic. MMODL / IJN: [id number] / MTDD
[2018-09-26 17:02] LABS: Glucose,Whole Blood 377 mg/dL (75-99)
[2018-09-26 20:02] LABS: Glucose,Whole Blood 324 mg/dL (75-99)
[2018-09-26] MEDS: COLLAGENASE 250 UNIT/GM OINTMENT 30 GM TUBE TOPICAL SCH (20:08)
[2018-09-26] MEDS: DILTIAZEM ORAL 30 MG TAB PO SCH (20:46)
[2018-09-27] MEDS: ACETAMINOPHEN TAB 325 MG TAB PO SCH ×3 (06:20→18:07)
[2018-09-27 07:10] LABS: Glucose,Whole Blood 258 mg/dL (75-99)
[2018-09-27] MEDS: ENOXAPARIN 40 MG/0.4 ML SYRINGE SQ SCH (08:08)
[2018-09-27] MEDS: INSULIN ASPART 100 UNIT/ML 1 ML 10 ML VIAL SQ SCH ×5 (08:08→20:39)
[2018-09-27] MEDS: GABAPENTIN 100 MG CAP PO SCH ×3 (08:09→22:19)
[2018-09-27] MEDS: LISINOPRIL-HCTZ 20-25 MG 1 EACH TAB PO SCH (08:09)
[2018-09-27] MEDS: OXYBUTYNIN 10 MG TAB.ER.24 PO SCH (08:09)
[2018-09-27] MEDS: ASPIRIN 81 MG PO SCH (08:10)
[2018-09-27] MEDS: PANTOPRAZOLE 40 MG TABLET PO SCH (08:10)
[2018-09-27] MEDS: HYDROmorphone 1 MG/ML 1 ML SYRINGE IVP PRN (09:58)
[2018-09-27 11:50] LABS: Glucose,Whole Blood 488 mg/dL (75-99)
[2018-09-27 12:02] LABS: Glucose,Whole Blood 413 mg/dL (75-99)
[2018-09-27] MEDS ORDERED: MAGNESIUM HYDROXIDE 2,400 MG/10 ML CUP PO PRN (12:34)
[2018-09-27] MEDS ORDERED: traMADol 50 MG TAB PO PRN (13:55)
--- NOTE | 2018-09-27 14:50 | P.PN ---
Subjective Progress Note Date: 09/27/18 The patient was seen and examined at the bedside. She endorsed R arm pain that has improved since prior and continued pain at the ulcers on her feet. She denied fever, chills, chest pain, SOB, nausea, vomiting, or dysuria. Objective - Vital Signs Vital signs: Vital Signs Temp 98.3 F 09/27/18 07:00 Pulse 58 L 09/27/18 07:00 Resp 16 09/27/18 07:00 BP 103/70 09/27/18 07:00 Pulse Ox 98 09/27/18 07:00 Intake & Output 09/26/18 09/27/18 09/27/18 18:59 06:59 18:59 Intake Total 236 350 Balance 236 350 Intake: Oral 236 350 Other: # Voids 2 1 - Exam General: Non-toxic, in no acute distress, appears stated age HEENT: NC/AT, anicteric sclerae, moist conjunctiva, no lid-lag, PERRLA Cardiovascular: S1/S2 wnl, no murmurs, rubs, or gallops Lungs: Clear to auscultation, normal respiratory effort, no accessory muscle use Abdominal: Soft, nontender, non-distended, no guarding, rebound, or rigidity Skin: Warm, dry Extremities: R arm medial aspect bruising, w/ tenderness, limited ROM of elbow and shoulder, able to make fist and has full ROM of wrist, radial pulses intact Psychiatric: Awake, alert, and oriented to person, place, and time Neuro: CN II-XII grossly intact, Speech intact, Sensation to light touch grossly intact throughout - Labs CBC & Chem 7: 09/26/18 06:51 09/26/18 06:51 Labs: Abnormal Lab Results - Last 24 Hours (Table) 09/26/18 09/26/18 09/27/18 Range/Units 17:00 20:00 07:07 POC Glucose (mg/dL) 377 H 324 H 258 H (75-99) mg/dL 09/27/18 09/27/18 Range/Units 11:39 11:58 POC Glucose (mg/dL) 488 H 413 H (75-99) mg/dL Microbiology - Last 24 Hours (Table) 09/25/18 14:51 Urine Culture - Final Urine,Voided Assessment and Plan Plan: Acute R humeral neck fracture -Orthopedic recs appreciated -C/w pain control and conservative measures w/ arm sling -Patient recommended for Rehab since she uses walker. Awaiting placement. Bilateral diabetic foot ulcers -Vascular surgery consult appreciated. Wound care as recommended. Chronic A-fib -C/w home meds: Cardizem, Aspirin HTN, CAD -C/w home meds Poorly controlled DM -Will started Levemir 10 U qhs w/ sliding scale. DVT prophy -Lovenox Discussed with: Patient, daughter Anticipated discharge date: 09/28/[address]: Rehab facility A total of 35 minutes was spent on the care of this complex patient more than 50 % of the time was spent in counseling and care coordination.
[2018-09-27 17:22] LABS: Glucose,Whole Blood 419 mg/dL (75-99)
[2018-09-27] MEDS ORDERED: INSULIN ASPART 100 UNIT/ML 1 ML 10 ML VIAL SQ SCH (17:30)
[2018-09-27] MEDS ORDERED: INSULIN ASPART 100 UNIT/ML 1 ML 10 ML VIAL SQ ONE (18:03)
[2018-09-27 19:39] LABS: Glucose,Whole Blood >600 mg/dL (75-99)
[2018-09-27 19:39] LABS: Glucose,Whole Blood 420 mg/dL (75-99)
[2018-09-27] MEDS: COLLAGENASE 250 UNIT/GM OINTMENT 30 GM TUBE TOPICAL SCH (20:48)
[2018-09-27] MEDS: DILTIAZEM ORAL 30 MG TAB PO SCH (20:48)
[2018-09-27] MEDS ORDERED: INSULIN DETEMIR 100 UNIT/ML 10 ML VIAL SQ SCH ×2 (21:00)
[2018-09-27 21:10] LABS: Appearance,Urine Clear (Clear); Bilirubin,Urine Negative (Negative); Blood,Urine Negative (Negative); Color,Urine Light Yellow; Glucose,Urine (UA) 4+ (Negative); Ketones,Urine Negative (Negative); Leukocyte Esterase,Urine Negative (Negative); Nitrite,Urine Negative (Negative); PH, Urine 5.5 (5.0-8.0); Protein,Urine Negative (Negative); Specific Gravity,Urine 1.015 (1.001-1.035)
[2018-09-27 21:22] LABS: Calcium 9.2 mg/dL (8.4-10.2); Potassium 4.4 mmol/L (3.5-5.1)
[2018-09-27 22:26] LABS: Glucose,Whole Blood 267 mg/dL (75-99)
[2018-09-28] MEDS: ACETAMINOPHEN TAB 325 MG TAB PO SCH ×5 (00:06→18:04)
[2018-09-28 00:09] LABS: Glucose,Whole Blood 210 mg/dL (75-99)
[2018-09-28] MEDS: HYDROmorphone 1 MG/ML 1 ML SYRINGE IVP PRN (02:21)
[2018-09-28 07:23] LABS: Glucose,Whole Blood 182 mg/dL (75-99)
[2018-09-28] MEDS ORDERED: INSULIN ASPART 100 UNIT/ML 1 ML 10 ML VIAL SQ SCH (07:30)
[2018-09-28] MEDS: INSULIN ASPART 100 UNIT/ML 1 ML 10 ML VIAL SQ SCH ×6 (07:45→18:04)
[2018-09-28] MEDS: LISINOPRIL-HCTZ 20-25 MG 1 EACH TAB PO SCH (09:26)
[2018-09-28] MEDS: OXYBUTYNIN 10 MG TAB.ER.24 PO SCH (09:31)
[2018-09-28] MEDS: PANTOPRAZOLE 40 MG TABLET PO SCH (09:31)
[2018-09-28] MEDS: ENOXAPARIN 40 MG/0.4 ML SYRINGE SQ SCH (09:31)
[2018-09-28] MEDS: GABAPENTIN 100 MG CAP PO SCH ×2 (09:31→15:23)
[2018-09-28] MEDS: ASPIRIN 81 MG PO SCH (09:31)
[2018-09-28 12:06] LABS: Glucose,Whole Blood 181 mg/dL (75-99)
--- NOTE | 2018-09-28 16:18 | P.DS ---
Providers Date of admission: 09/25/18 18:15 Expected date of discharge: 09/28/18 Attending physician: Amira Luz MD Consults: 09/25/18 21:39 Consult Physician Routine Consulting Provider: Edgard Oquendo Consult Reason/Comments: left foot diabetic foot ulcer Do you want consulting provider notified?: Yes Consult Physician Routine Consulting Provider: Liam Juarez Consult Reason/Comments: right femoral neck fracture Do you want consulting provider notified?: Yes Primary care physician: Ulysses Rose [facility] Course: The patient is an 83-year-old female with a PMH of diabetes mellitus, A. fib, hypertension, hyperlipidemia, coronary artery disease, and GERD who presented to the ED after a fall at home. The patient was walking to the bathroom with her walker when she tripped on her night gown, and fell to the ground. The neighbors heard a thump and found her on the ground and activated EMS. In the ED, the patient was found to have an acute fracture of the right humeral neck. Orthopedic was consulted and upon discussion with the family the decision was made to treat conservatively, and the patient was placed in an arm sling. Physical therapy was consulted and the patient and recommended transfer to a rehab facility. While inpatient, the patient was noted to have hyperglycemia and her insulin regimen was adjusted. She was also noted to be in A. fib with RVR and her home medications were resumed. The patient is presently stable and ready for discharge to [facility] rehab facility. Physical Examination General: Awake, alert, in no acute distress HEENT: NC/AT, anicteric sclerae, moist conjunctiva, no lid-lag, PERRLA, oropharynx clear, no erythema, exudates Cardiovascular: S1/S2 wnl, no murmurs, rubs, or gallops Lungs: Clear to auscultation, normal respiratory effort, no accessory muscle use Abdominal: Soft, nontender, non-distended, no guarding, rebound, or rigidity, normoactive bowel sounds Skin: Warm, dry Extremities: R arm medial aspect bruising w/ tenderness, radial pulses intact, conrado LE diabetic ulcers Psychiatric: Alert and oriented to person, place and time, appropriate affect, Intact judgment Neuro: CN II-XII grossly intact, sensation to light touch grossly present throughout Discharge diagnosis: Acute R humeral neck fracture; Bilateral diabetic foot ulcers; Chronic A-fib; HTN; CAD; Poorly controlled DM A total of 60 minutes of time were spent preparing this complex discharge summary. Pertinent Studies: As per above Procedures: As per above Patient Condition at Discharge: Fair Plan - Discharge Summary Discharge Rx Participant: No New Discharge Prescriptions: New Collagenase [Santyl] 1 applic TOPICAL Q24H applic Heparin Sodium,Porcine [Heparin Sodium] 5,000 unit SQ Q12HR vial Insulin Aspart [NovoLOG (formulary)] 5 unit SQ AC-TID vial Insulin Aspart [NovoLOG (formulary)] 0 unit SQ ACHS vial Insulin Detemir [Levemir] 15 unit SQ HS syr Magnesium Hydroxide [Milk of Magnesia Concentrate] 2,400 mg PO DAILY PRN ml PRN Reason: Constipation Ondansetron [Zofran] 4 mg IVP Q6HR PRN vial PRN Reason: Nausea And Vomiting traMADol HCl [Ultram] 50 mg PO Q8H PRN tab PRN Reason: Moderate Pain Continue Sertraline HCl [Zoloft] 25 mg PO DAILY Pentoxifylline 400 mg PO TID metFORMIN HCL 1,000 mg PO BID Vit C/E/Zn/Coppr/Lutein/Zeaxan [Preservision Areds 2 Softgel] 1 cap PO DAILY@ 0600 Acetaminophen Tab [Tylenol] 650 mg PO Q6HR tab Furosemide [Lasix] 40 mg PO BID@0900,1600 tab Aspirin 81 mg PO DAILY #0 chew Tolterodine Tartrate [Detrol LA] 4 mg PO DAILY Thiamine [Vitamin B-1] 100 mg PO DAILY Ergocalciferol [Vitamin D2 (DRISDOL)] 50,000 unit PO Q7D Diltiazem Oral [Cardizem*] 30 mg PO ACHS Sennosides/Docusate Sodium [Senna-S Laxative Tablet] 1 tab PO BID PRN PRN Reason: Constipation Omeprazole 40 mg PO DAILY Trospium Chloride 20 mg PO HS Magnesium Oxide [Mag-Ox] 400 mg PO BID Lisinopril-Hctz 20-25 mg [Zestoretic 20-25] 1 tab PO DAILY Gabapentin [Neurontin] 200 mg PO TID Vitamin B Complex 1 cap PO DAILY Discontinued INSULIN LISPRO (HumaLOG) [HumaLOG] See Protocol SQ [facility] Ibuprofen [Motrin Ib] 200 mg PO BID Discharge Medication List Pentoxifylline 400 mg PO TID 12/13/16 [History] Sertraline HCl [Zoloft] 25 mg PO DAILY 12/13/16 [History] Vit C/E/Zn/Coppr/Lutein/Zeaxan [Preservision Areds 2 Softgel] 1 cap PO DAILY@ 0600 11/10/17 [History] metFORMIN HCL 1,000 mg PO BID 11/10/17 [History] Acetaminophen Tab [Tylenol] 650 mg PO Q6HR tab 03/24/18 [Rx] Aspirin 81 mg PO DAILY #0 chew 04/03/18 [Rx] Furosemide [Lasix] 40 mg PO BID@0900,1600 tab 04/03/18 [Rx] Diltiazem Oral [Cardizem*] 30 mg PO ACHS 09/25/18 [History] Ergocalciferol [Vitamin D2 (DRISDOL)] 50,000 unit PO Q7D 09/25/18 [History] Gabapentin [Neurontin] 200 mg PO TID 09/25/18 [History] Lisinopril-Hctz 20-25 mg [Zestoretic 20-25] 1 tab PO DAILY 09/25/18 [History] Magnesium Oxide [Mag-Ox] 400 mg PO BID 09/25/18 [History] Omeprazole 40 mg PO DAILY 09/25/18 [History] Sennosides/Docusate Sodium [Senna-S Laxative Tablet] 1 tab PO BID PRN 09/25/18 [ History] Thiamine [Vitamin B-1] 100 mg PO DAILY 09/25/18 [History] Tolterodine Tartrate [Detrol LA] 4 mg PO DAILY 09/25/18 [History] Trospium Chloride 20 mg PO HS 09/25/18 [History] Vitamin B Complex 1 cap PO DAILY 09/25/18 [History] Collagenase [Santyl] 1 applic TOPICAL Q24H applic 09/28/18 [Rx] Heparin Sodium,Porcine [Heparin Sodium] 5,000 unit SQ Q12HR vial 09/28/18 [Rx] Insulin Aspart [NovoLOG (formulary)] 0 unit SQ ACHS vial 09/28/18 [Rx] Insulin Aspart [NovoLOG (formulary)] 5 unit SQ AC-TID vial 09/28/18 [Rx] Insulin Detemir [Levemir] 15 unit SQ HS syr 09/28/18 [Rx] Magnesium Hydroxide [Milk of Magnesia Concentrate] 2,400 mg PO DAILY PRN ml [Rx] Ondansetron [Zofran] 4 mg IVP Q6HR PRN vial 09/28/18 [Rx] traMADol HCl [Ultram] 50 mg PO Q8H PRN tab 09/28/18 [Rx] Follow up Appointment(s)/Referral(s): Ulysses Rose DO [Primary Care Provider] - 1-2 days Patient Instructions/Handouts: Fall Prevention for Older Adults (ED) Activity/Diet/Wound Care/Special Instructions: Directions for SNF: Patient with hx of Afib previously well-controlled on Cardizem 30 mg po qhs. Heart rate borderline during hospital stay. Please monitor HR and increase dose of Cardizem as warranted. Discharge Disposition: TRANSFER TO SNF/ECF
[2018-09-28 16:58] VITALS: BP 105/75; PULSE 71; RESP 12; TEMP 98
[2018-09-28 17:20] LABS: Glucose,Whole Blood 245 mg/dL (75-99)
[2018-09-28] MEDS ORDERED: HEPARIN SODIUM,PORCINE 5,000 UNIT/ML 1 ML VIAL SQ SCH (21:00)
== END 2018-09-28 18:32 | DRG 563 ==
LOC: EC 13:02 → 4SSUR 18:15
PROVIDERS: ADMIT Family Medicine; ATTEND Family Medicine
DX: S42.211A Unspecified displaced fracture of surgical neck of right humerus, initial encounter for closed fracture (principal); L97.429 Non-pressure chronic ulcer of left heel and midfoot with unspecified severity; E11.40 Type 2 diabetes mellitus with diabetic neuropathy, unspecified; E11.51 Type 2 diabetes mellitus with diabetic peripheral angiopathy without gangrene; E11.621 Type 2 diabetes mellitus with foot ulcer; I48.2 Chronic atrial fibrillation; E11.65 Type 2 diabetes mellitus with hyperglycemia; L97.529 Non-pressure chronic ulcer of other part of left foot with unspecified severity; I25.10 Atherosclerotic heart disease of native coronary artery without angina pectoris; I10 Essential (primary) hypertension; H91.90 Unspecified hearing loss, unspecified ear; M19.90 Unspecified osteoarthritis, unspecified site; E78.5 Hyperlipidemia, unspecified; K59.00 Constipation, unspecified; R41.82 Altered mental status, unspecified; K21.9 Gastro-esophageal reflux disease without esophagitis; Z79.82 Long term (current) use of aspirin; Z79.4 Long term (current) use of insulin; Z79.1 Long term (current) use of non-steroidal anti-inflammatories (NSAID); Z79.899 Other long term (current) drug therapy; Z90.710 Acquired absence of both cervix and uterus; Z90.49 Acquired absence of other specified parts of digestive tract; Z85.41 Personal history of malignant neoplasm of cervix uteri; Z87.81 Personal history of (healed) traumatic fracture; Z87.891 Personal history of nicotine dependence; Z91.81 History of falling; Z98.42 Cataract extraction status, left eye; Z98.41 Cataract extraction status, right eye; Z95.810 Presence of automatic (implantable) cardiac defibrillator; Z88.1 Allergy status to other antibiotic agents; Z88.5 Allergy status to narcotic agent; W01.0XXA Fall on same level from slipping, tripping and stumbling without subsequent striking against object, initial encounter; Y92.009 Unspecified place in unspecified non-institutional (private) residence as the place of occurrence of the external cause; Y93.01 Activity, walking, marching and hiking; Z82.49 Family history of ischemic heart disease and other diseases of the circulatory system; Z83.3 Family history of diabetes mellitus
CPT/HCPCS: 36415; 70450; 71046; 72125; 80048; 80053; 81001; 81003; 82550; 82553; 83735; 84100; 84484; 85025; 85610; 85730; 87086; 93005; 96361; 96374; 96375; 96376; 99285

== ENCOUNTER 2018-09-29 10:17 | Emergency (ER) | payer MEDICARE, BC ==
[2018-09-29 10:24] VITALS: TEMP 98.7
[2018-09-29] MEDS ORDERED: SODIUM CHLORIDE 0.9% 1,000 ML IV STA (10:38)
[2018-09-29 10:59] LABS: Basophils % (A) 0 %; Eosinophils # (A) 0.2 k/uL (0-0.7); Eosinophils % (A) 2 %; HCT 40.9 % (34.0-46.0); HGB 13.2 gm/dL (11.4-16.0); Lymphocytes # (A) 1.1 k/uL (1.0-4.8); Lymphocytes % (A) 13 %; MCH 30.2 pg (25.0-35.0); MCHC 32.3 g/dL (31.0-37.0); MCV 93.5 fL (80.0-100.0); Mean Platelet Volume 7.7; Monocytes # (A) 0.5 k/uL (0-1.0); Monocytes % (A) 6 %; Neutrophils # (A) 6.4 k/uL (1.3-7.7); Neutrophils % (A) 77 %; Platelet Count 207 k/uL (150-450); RBC 4.37 m/uL (3.80-5.40); RDW 15.6 % (11.5-15.5); WBC 8.3 k/uL (3.8-10.6)
[2018-09-29] MEDS ORDERED: DILTIAZEM DRIP BOLUS FROM BAG 1 MG SOLN IV ONE (11:02)
[2018-09-29 11:05] LABS: ALT 57 U/L (9-52); AST 29 U/L (14-36); Albumin 3.4 g/dL (3.5-5.0); Alkaline Phosphatase 77 U/L (38-126); Anion Gap 6 mmol/L; Blood Urea Nitrogen 17 mg/dL (7-17); Calcium 9.4 mg/dL (8.4-10.2); Carbon Dioxide 31 mmol/L (22-30); Chloride 101 mmol/L (98-107); Glucose 233 mg/dL (74-99); Magnesium 1.7 mg/dL (1.6-2.3); Phosphorus 2.9 mg/dL (2.5-4.5); Potassium 4.5 mmol/L (3.5-5.1); Sodium 138 mmol/L (137-145); Total Bilirubin 1.2 mg/dL (0.2-1.3); Total Protein 6.2 g/dL (6.3-8.2)
[2018-09-29] MEDS ORDERED: DILTIAZEM 5 MG/ML 5 ML VIAL IV ONE (11:15)
[2018-09-29 11:31] LABS: Creatine Kinase MB 1.9 ng/mL (0.0-2.4); Troponin I 0.034 ng/mL (0.000-0.034)
[2018-09-29 11:42] LABS: INR 0.9 (<1.2)
[2018-09-29 11:54] LABS: Partial Thromboplastin Time 21.5 sec (22.0-30.0)
--- NOTE | 2018-09-29 11:59 | ED ---
Recheck HPI - General Chief Complaint: Recheck/Abnormal Lab/Rx Stated Complaint: high heart rate Time Seen by Provider: 09/29/18 10:29 Source: EMS, RN notes reviewed, old records reviewed Mode of arrival: EMS Limitations: no limitations - History of Present Illness Initial Comments: This is an 83-year-old female the ER for evaluation. Patient transfer evaluation of elevated heart rate. Patient has known atrial fibrillation. Patient did have recent slip and fall with right humerus fracture, multiple recent hospital for placement at [facility]. I would send the patient in for evaluation of elevated heart rate. Patient herself is denying any complaints she does not feel extremely well but is improving each day. No other recent change in medications. Denies significant shortness of breath or chest pain MD Complaint: other (Elevated heart rate) -: hour(s) Initial Visit For: other (Fall with right humerus fracture) Returns Today for: other (Abnormal heart rate) Symptoms Since Prior Visit: worsening pain (Right upper extremity) Associated Symptoms: none - Related Data Home Medications Medication Instructions Recorded Confirmed Pentoxifylline 400 mg PO TID 12/13/16 09/29/18 Sertraline HCl [Zoloft] 25 mg PO DAILY 12/13/16 09/29/18 Vit C/E/Zn/Coppr/Lutein/Zeaxan 1 cap PO DAILY 11/10/17 09/29/18 [Preservision Areds 2 Softgel] metFORMIN HCL 1,000 mg PO BID 11/10/17 09/29/18 Diltiazem Oral [Cardizem*] 30 mg PO ACHS 09/25/18 09/29/18 Ergocalciferol [Vitamin D2 50,000 unit PO Q7D 09/25/18 09/29/18 (DRISDOL)] Lisinopril-Hctz 20-25 mg 1 tab PO DAILY 09/25/18 09/29/18 [Zestoretic 20-25] Magnesium Oxide [Mag-Ox] 400 mg PO BID 09/25/18 09/29/18 Omeprazole 40 mg PO DAILY 09/25/18 09/29/18 Sennosides/Docusate Sodium 1 tab PO BID PRN 09/25/18 09/29/18 [Senna-S Laxative Tablet] Thiamine [Vitamin B-1] 100 mg PO DAILY 09/25/18 09/29/18 Tolterodine Tartrate [Detrol LA] 4 mg PO DAILY 09/25/18 09/29/18 Trospium Chloride 20 mg PO HS 09/25/18 09/29/18 Vitamin B Complex 1 cap PO DAILY 09/25/18 09/29/18 Bisacodyl [Dulcolax] 10 mg RECTAL DAILY PRN 09/29/18 09/29/18 Caldesene Powder 1 applic TOPICAL BID 09/29/18 09/29/18 Insulin Aspart [NovoLOG See Protocol SQ ACHS 09/29/18 09/29/18 (formulary)] Menthol/Zinc Oxide [Calmoseptine 1 applic TOPICAL BID 09/29/18 09/29/18 Ointment] Na Phos,M-B/Na Phos,Di-Ba [Fleet 133 ml RECTAL DAILY PRN 09/29/18 09/29/18 Adult] Previous Rx's Medication Instructions Recorded Acetaminophen Tab [Tylenol] 650 mg PO Q6HR tab 03/24/18 Aspirin 81 mg PO DAILY #0 chew 04/03/18 Furosemide [Lasix] 40 mg PO BID@0900,1600 tab 04/03/18 Collagenase [Santyl] 1 applic TOPICAL Q24H applic 09/28/18 Gabapentin [Neurontin] 200 mg PO TID #30 cap 09/28/18 Heparin Sodium,Porcine [Heparin 5,000 unit SQ Q12HR vial 09/28/18 Sodium] Insulin Aspart [NovoLOG 5 unit SQ AC-TID vial 09/28/18 (formulary)] Insulin Detemir [Levemir] 15 unit SQ HS syr 09/28/18 Magnesium Hydroxide [Milk of 2,400 mg PO DAILY PRN ml 09/28/18 Magnesia Concentrate] Ondansetron [Zofran] 4 mg IVP Q6HR PRN vial 09/28/18 traMADol HCL [Ultram] 50 mg PO Q4HR PRN 3 Days #18 tab 09/28/18 Allergies Allergy/AdvReac Type Severity Reaction Status Date / Time levofloxacin [From Levaquin] Allergy Mild Rash/Hives Verified 09/29/18 10:26 morphine Allergy Rapid Verified 09/29/18 10:26 Heart Rate Review of Systems ROS Statement: Those systems with pertinent positive or pertinent negative responses have been documented in the HPI. ROS Other: All systems not noted in ROS Statement are negative. Past Medical History Past Medical History: Atrial Fibrillation, Coronary Artery Disease (CAD), Cancer , Diabetes Mellitus, GERD/Reflux, Hearing Disorder / Deafness, Hyperlipidemia, Hypertension, Osteoarthritis (OA) Additional Past Medical History / Comment(s): diverticultis, rt arm fx, cervical cancer, pancreatitis, right foot infection, gall stones and removal, FALL/fx coccyx 08-29-17, CONSTIPATION, PAD, RT FOOT (great toe) WOUND HAS BEEN GOING TO THE [facility] , PAST [place],lt. foot wound History of Any Multi-Drug Resistant Organisms: None Reported Date of last positivie culture/infection: None MDRO Source:: None Past Surgical History: AICD, Bowel Resection, Cholecystectomy, Heart Catheterization, Hysterectomy, Orthopedic Surgery Additional Past Surgical History / Comment(s): Internal defibulator 09-15-17, LT ROTATOR CUFF X2, BUNIONECTOMY JACQUELINE,, JACQUELINE BREAST LUMPECTOMIES-BOTH NEG,, X2 ERCP, RT HAND SX PINS PLACED-BUT SINCE REMOVED, CATARACTS. 12/01/17 picc line inserted- since removed Past Anesthesia/Blood Transfusion Reactions: No Reported Reaction Type of Cardiac Device: AICD Device Placement Date:: 09-15-17 Past Psychological History: No Psychological Hx Reported Smoking Status: Former smoker Past Alcohol Use History: None Reported Past Drug Use History: None Reported - Past Family History Mother Family Medical History: No Reported History Additional Family Medical History / Comment(s): HEART DISEASE Father Family Medical History: Coronary Artery Disease (CAD), Diabetes Mellitus General Exam - General Exam Comments Initial Comments: Right upper extremity has significant bruising, pain and swelling. Limitations: no limitations General appearance: alert, in no apparent distress Head exam: Present: atraumatic, normocephalic, normal inspection Eye exam: Present: normal appearance, PERRL, EOMI. Absent: scleral icterus, conjunctival injection, periorbital swelling ENT exam: Present: normal exam, mucous membranes moist Neck exam: Present: normal inspection. Absent: tenderness, meningismus, lymphadenopathy Respiratory exam: Present: normal lung sounds bilaterally. Absent: respiratory distress, wheezes, rales, rhonchi, stridor Cardiovascular Exam: Present: tachycardia, irregular rhythm, normal heart sounds. Absent: systolic murmur, diastolic murmur, rubs, gallop, clicks GI/Abdominal exam: Present: soft, normal bowel sounds. Absent: distended, tenderness, guarding, rebound, rigid Extremities exam: Present: normal inspection, full ROM, normal capillary refill. Absent: tenderness, pedal edema, joint swelling, calf tenderness Back exam: Present: normal inspection Neurological exam: Present: alert, oriented X3, CN II-XII intact Psychiatric exam: Present: normal affect, normal mood Skin exam: Present: warm, dry, intact, normal color. Absent: rash Course Vital Signs 09/29/18 09/29/18 09/29/18 10: 10:24 11:30 Temperature 98.7 F Pulse Rate 120 H 108 H Pulse Rate [ 130 H Left Sitting Pulse Oximetery ] Respiratory 16 18 Rate Blood Pressure 121/99 131/88 O2 Sat by Pulse 97 97 Oximetry 09/29/18 13:00 Temperature Pulse Rate 99 Pulse Rate [ Left Sitting Pulse Oximetery ] Respiratory 16 Rate Blood Pressure 100/82 O2 Sat by Pulse 97 Oximetry - Reevaluation(s) Reevaluation #1: 09/29/18 12:32 Medical record including prior hospitalizations reviewed Reevaluation #2: 09/29/18 12:32 Patient does have improvement heart rate here Reevaluation #3: 09/29/18 12:32 Pain is controlled Medical Decision Making - Medical Decision Making 83 female the ER for evaluation. Presents today for evaluation of elevated heart rate, A. fib with RVR. Patient is achieved improved rate control here in the emergency room and can be discharged home - Lab Data Result diagrams: 09/29/18 10:43 09/29/18 10:43 Lab Results 09/29/18 09/29/18 09/29/18 Range/Units 10:43 10:43 10:43 WBC 8.3 (3.8-10.6) k/uL RBC 4.37 (3.80-5.40) m/uL Hgb 13.2 (11.4-16.0) gm/dL Hct 40.9 (34.0-46.0) % MCV 93.5 (80.0-100.0) fL MCH 30.2 (25.0-35.0) pg MCHC 32.3 (31.0-37.0) g/dL RDW 15.6 H (11.5-15.5) % Plt Count 207 (150-450) k/uL Neutrophils % 77 % Lymphocytes % 13 % Monocytes % 6 % Eosinophils % 2 % Basophils % 0 % Neutrophils # 6.4 (1.3-7.7) k/uL Lymphocytes # 1.1 (1.0-4.8) k/uL Monocytes # 0.5 (0-1.0) k/uL Eosinophils # 0.2 (0-0.7) k/uL Basophils # 0.0 (0-0.2) k/uL PT (9.0-12.0) sec INR (<1.2) APTT (22.0-30.0) sec Sodium 138 (137-145) mmol/L Potassium 4.5 (3.5-5.1) mmol/L Chloride 101 (98-107) mmol/L Carbon Dioxide 31 H (22-30) mmol/L Anion Gap 6 mmol/L BUN 17 (7-17) mg/dL Creatinine 0.68 (0.52-1.04) mg/dL Est GFR (CKD-EPI)AfAm >90 (>60 ml/min/1.73 sqM) Est GFR (CKD-EPI)NonAf 81 (>60 ml/min/1.73 sqM) Glucose 233 H (74-99) mg/dL Calcium 9.4 (8.4-10.2) mg/dL Phosphorus 2.9 (2.5-4.5) mg/dL Magnesium 1.7 (1.6-2.3) mg/dL Total Bilirubin 1.2 (0.2-1.3) mg/dL AST 29 (14-36) U/L ALT 57 H (9-52) U/L Alkaline Phosphatase 77 (38-126) U/L Total Creatine Kinase 55 (30-135) U/L CK-MB (CK-2) 1.9 (0.0-2.4) ng/mL CK-MB (CK-2) Rel Index 3.5 Troponin I 0.034 (0.000-0.034) ng/mL Total Protein 6.2 L (6.3-8.2) g/dL Albumin 3.4 L (3.5-5.0) g/dL TSH 1.050 (0.465-4.680) mIU/L Urine Color Urine Appearance (Clear) Urine pH (5.0-8.0) Ur Specific [place] (1.001-1.035) Urine Protein (Negative) Urine Glucose (UA) (Negative) Urine Ketones (Negative) Urine Blood (Negative) Urine Nitrite (Negative) Urine Bilirubin (Negative) Urine Urobilinogen (<2.0) mg/dL Ur Leukocyte Esterase (Negative) 09/29/18 09/29/18 Range/Units 10:43 12:20 WBC (3.8-10.6) k/uL RBC (3.80-5.40) m/uL Hgb (11.4-16.0) gm/dL Hct (34.0-46.0) % MCV (80.0-100.0) fL MCH (25.0-35.0) pg MCHC (31.0-37.0) g/dL RDW (11.5-15.5) % Plt Count (150-450) k/uL Neutrophils % % Lymphocytes % % Monocytes % % Eosinophils % % Basophils % % Neutrophils # (1.3-7.7) k/uL Lymphocytes # (1.0-4.8) k/uL Monocytes # (0-1.0) k/uL Eosinophils # (0-0.7) k/uL Basophils # (0-0.2) k/uL PT 10.0 (9.0-12.0) sec INR 0.9 (<1.2) APTT 21.5 L (22.0-30.0) sec Sodium (137-145) mmol/L Potassium (3.5-5.1) mmol/L Chloride (98-107) mmol/L Carbon Dioxide (22-30) mmol/L Anion Gap mmol/L BUN (7-17) mg/dL Creatinine (0.52-1.04) mg/dL Est GFR (CKD-EPI)AfAm (>60 ml/min/1.73 sqM) Est GFR (CKD-EPI)NonAf (>60 ml/min/1.73 sqM) Glucose (74-99) mg/dL Calcium (8.4-10.2) mg/dL Phosphorus (2.5-4.5) mg/dL Magnesium (1.6-2.3) mg/dL Total Bilirubin (0.2-1.3) mg/dL AST (14-36) U/L ALT (9-52) U/L Alkaline Phosphatase (38-126) U/L Total Creatine Kinase (30-135) U/L CK-MB (CK-2) (0.0-2.4) ng/mL CK-MB (CK-2) Rel Index Troponin I (0.000-0.034) ng/mL Total Protein (6.3-8.2) g/dL Albumin (3.5-5.0) g/dL TSH (0.465-4.680) mIU/L Urine Color Yellow Urine Appearance Clear (Clear) Urine pH 6.5 (5.0-8.0) Ur Specific [place] 1.010 (1.001-1.035) Urine Protein Negative (Negative) Urine Glucose (UA) Trace H (Negative) Urine Ketones Negative (Negative) Urine Blood Negative (Negative) Urine Nitrite Negative (Negative) Urine Bilirubin Negative (Negative) Urine Urobilinogen <2.0 (<2.0) mg/dL Ur Leukocyte Esterase Negative (Negative) - EKG Data -: EKG Interpreted by Me (EKG shows A. fib with RVR rate 121, QRS 70, QTc 482) - Radiology Data Radiology results: report reviewed (CXR is negative for acute disease), image reviewed Disposition Clinical Impression: Atrial fibrillation with RVR, Postoperative pain Disposition: HOME SELF-CARE Condition: Good Instructions: A-fib (Atrial Fibrillation) (ED) Is patient prescribed a controlled substance at d/c from ED?: No Referrals: Ulysses Rose DO [Primary Care Provider] - 1-2 days
--- NOTE | 2018-09-29 12:46 | XR ---
EXAMINATION TYPE: XR chest 1V DATE OF EXAM: 09/29/2018 HISTORY: Shortness of breath. COMPARISON: 09/25/2018 TECHNIQUE: Single view of the chest is submitted. FINDINGS: Demonstrated are scattered senescent parenchymal change. There is no evidence for focal infiltrate. The heart is enlarged without overt failure. Hilar and mediastinal structures are within normal limits. Degenerative changes are seen of the dorsal spine. Multiple healed right-sided rib fractures. IMPRESSION: 1. Chronic changes without evidence for acute pulmonary disease.
[2018-09-29 13:09] LABS: Appearance,Urine Clear (Clear); Bilirubin,Urine Negative (Negative); Blood,Urine Negative (Negative); Color,Urine Yellow; Glucose,Urine (UA) Trace (Negative); Ketones,Urine Negative (Negative); Leukocyte Esterase,Urine Negative (Negative); Nitrite,Urine Negative (Negative); PH, Urine 6.5 (5.0-8.0); Protein,Urine Negative (Negative); Urobilinogen,Urine <2.0 mg/dL (<2.0)
[2018-09-29] MEDS ORDERED: SODIUM CHLORIDE 0.9% 500 ML 500 ML IV STA (13:58)
[2018-09-29] MEDS ORDERED: HYDROmorphone 0.5 MG/0.5 ML SYRINGE IVP STA (14:01)
[2018-09-29 14:41] VITALS: BP 119/88; PULSE 103; RESP 18
[2018-09-29] MEDS ORDERED: HYDROmorphone 1 MG/ML 1 ML SYRINGE IVP STA (18:42)
== END 2018-09-29 15:02 | disposition home or self-care (01) ==
LOC: EC 10:17
DX: I48.91 Unspecified atrial fibrillation (principal); G89.18 Other acute postprocedural pain; M79.601 Pain in right arm; S42.301A Unspecified fracture of shaft of humerus, right arm, initial encounter for closed fracture; I25.10 Atherosclerotic heart disease of native coronary artery without angina pectoris; I10 Essential (primary) hypertension; E11.9 Type 2 diabetes mellitus without complications; H91.90 Unspecified hearing loss, unspecified ear; K21.9 Gastro-esophageal reflux disease without esophagitis; Z87.891 Personal history of nicotine dependence; Z88.1 Allergy status to other antibiotic agents; Z88.5 Allergy status to narcotic agent; Z79.4 Long term (current) use of insulin; Z79.899 Other long term (current) drug therapy; Z85.41 Personal history of malignant neoplasm of cervix uteri; Z90.710 Acquired absence of both cervix and uterus; Z95.810 Presence of automatic (implantable) cardiac defibrillator; Z87.19 Personal history of other diseases of the digestive system; Z87.2 Personal history of diseases of the skin and subcutaneous tissue; Z82.49 Family history of ischemic heart disease and other diseases of the circulatory system; W01.0XXA Fall on same level from slipping, tripping and stumbling without subsequent striking against object, initial encounter; Z53.8 Procedure and treatment not carried out for other reasons
CPT/HCPCS: 99285; 96374; 96375; 96361; 36415; 93005; 80053; 82550; 82553; 83735; 84100; 84443; 84484; 85025; 85610; 85730; 81003; 87086; 71045; J1170

== ENCOUNTER 2018-09-29 18:09 | Inpatient (IN) | payer MEDICARE, BC ==
--- NOTE | 2018-09-29 19:38 | ED ---
General Adult HPI - General Chief complaint: Recheck/Abnormal Lab/Rx Stated complaint: A fib Source: patient, EMS Mode of arrival: EMS Limitations: physical limitation - Related Data Home Medications Medication Instructions Recorded Confirmed Pentoxifylline 400 mg PO TID 12/13/16 09/29/18 Sertraline HCl [Zoloft] 25 mg PO DAILY 12/13/16 09/29/18 Vit C/E/Zn/Coppr/Lutein/Zeaxan 1 cap PO DAILY 11/10/17 09/29/18 [Preservision Areds 2 Softgel] metFORMIN HCL 1,000 mg PO BID 11/10/17 09/29/18 Diltiazem Oral [Cardizem*] 30 mg PO ACHS 09/25/18 09/29/18 Ergocalciferol [Vitamin D2 50,000 unit PO Q7D 09/25/18 09/29/18 (DRISDOL)] Lisinopril-Hctz 20-25 mg 1 tab PO DAILY 09/25/18 09/29/18 [Zestoretic 20-25] Magnesium Oxide [Mag-Ox] 400 mg PO BID 09/25/18 09/29/18 Omeprazole 40 mg PO DAILY 09/25/18 09/29/18 Sennosides/Docusate Sodium 1 tab PO BID PRN 09/25/18 09/29/18 [Senna-S Laxative Tablet] Thiamine [Vitamin B-1] 100 mg PO DAILY 09/25/18 09/29/18 Tolterodine Tartrate [Detrol LA] 4 mg PO DAILY 09/25/18 09/29/18 Trospium Chloride 20 mg PO HS 09/25/18 09/29/18 Vitamin B Complex 1 cap PO DAILY 09/25/18 09/29/18 Bisacodyl [Dulcolax] 10 mg RECTAL DAILY PRN 09/29/18 09/29/18 Caldesene Powder 1 applic TOPICAL BID 09/29/18 09/29/18 Insulin Aspart [NovoLOG See Protocol SQ [facility] 09/29/18 09/29/18 (formulary)] Menthol/Zinc Oxide [Calmoseptine 1 applic TOPICAL BID 09/29/18 09/29/18 Ointment] Na Phos,M-B/Na Phos,Di-Ba [Fleet 133 ml RECTAL DAILY PRN 09/29/18 09/29/18 Adult] Previous Rx's Medication Instructions Recorded Acetaminophen Tab [Tylenol] 650 mg PO Q6HR tab 03/24/18 Aspirin 81 mg PO DAILY #0 chew 04/03/18 Furosemide [Lasix] 40 mg PO BID@0900,1600 tab 04/03/18 Collagenase [Santyl] 1 applic TOPICAL Q24H applic 09/28/18 Gabapentin [Neurontin] 200 mg PO TID #30 cap 09/28/18 Heparin Sodium,Porcine [Heparin 5,000 unit SQ Q12HR vial 09/28/18 Sodium] Insulin Aspart [NovoLOG 5 unit SQ AC-TID vial 09/28/18 (formulary)] Insulin Detemir [Levemir] 15 unit SQ HS syr 09/28/18 Magnesium Hydroxide [Milk of 2,400 mg PO DAILY PRN ml 09/28/18 Magnesia Concentrate] Ondansetron [Zofran] 4 mg IVP Q6HR PRN vial 09/28/18 traMADol HCL [Ultram] 50 mg PO Q4HR PRN 3 Days #18 tab 09/28/18 Allergies Allergy/AdvReac Type Severity Reaction Status Date / Time levofloxacin [From Levaquin] Allergy Mild Rash/Hives Verified 09/29/18 18:39 morphine Allergy Rapid Verified 09/29/18 18:39 Heart Rate Review of Systems ROS Statement: Those systems with pertinent positive or pertinent negative responses have been documented in the HPI. ROS Other: All systems not noted in ROS Statement are negative. Past Medical History Past Medical History: Atrial Fibrillation, Coronary Artery Disease (CAD), Cancer , Diabetes Mellitus, GERD/Reflux, Hearing Disorder / Deafness, Hyperlipidemia, Hypertension, Osteoarthritis (OA) Additional Past Medical History / Comment(s): diverticultis, rt arm fx, cervical cancer, pancreatitis, right foot infection, gall stones and removal, FALL/fx coccyx 08-29-17, CONSTIPATION, PAD, RT FOOT (great toe) WOUND HAS BEEN GOING TO THE [facility] , PAST [place],lt. foot wound History of Any Multi-Drug Resistant Organisms: None Reported Date of last positivie culture/infection: None MDRO Source:: None Past Surgical History: AICD, Bowel Resection, Cholecystectomy, Heart Catheterization, Hysterectomy, Orthopedic Surgery Additional Past Surgical History / Comment(s): Internal defibulator 09-15-17, LT ROTATOR CUFF X2, BUNIONECTOMY JACQUELINE,, JACQUELINE BREAST LUMPECTOMIES-BOTH NEG,, X2 ERCP, RT HAND SX PINS PLACED-BUT SINCE REMOVED, CATARACTS. 12/01/17 picc line inserted- since removed Past Anesthesia/Blood Transfusion Reactions: No Reported Reaction Type of Cardiac Device: AICD Device Placement Date:: 09-15-17 Past Psychological History: No Psychological Hx Reported Smoking Status: Former smoker Past Alcohol Use History: None Reported Past Drug Use History: None Reported - Past Family History Mother Family Medical History: No Reported History Additional Family Medical History / Comment(s): HEART DISEASE Father Family Medical History: Coronary Artery Disease (CAD), Diabetes Mellitus General Exam Limitations: physical limitation Course Vital Signs 09/29/18 09/29/18 09/29/18 18:15 18:41 19:00 Temperature 98.1 F Pulse Rate 126 H 119 H Pulse Rate [ 126 H [employer] ] Respiratory 20 20 Rate Blood Pressure 139/86 117/89 O2 Sat by Pulse 98 100 Oximetry 09/29/18 09/29/18 19:30 20:00 Temperature Pulse Rate 108 H 115 H Pulse Rate [ [employer] ] Respiratory 20 20 Rate Blood Pressure 117/89 140/93 O2 Sat by Pulse 98 99 Oximetry Medical Decision Making - Medical Decision Making Dictation was produced using [employer] dictation software. please excuse any grammatical, word or spelling errors. Chief Complaint: Patient is 83-year-old female past medical history major for ablation, coronary artery disease, dyslipidemia presents with A. fib with rapid ventricular rate. History of Present Illness: She was just discharged from our facility for humeral pain. Patient presents with daughter who reports that patient was evaluated by our with . She was told to come back to the emergency department for rapid ventricular rate. Patient allegedly had a heart rate of 130s. Patient has history of atrial fibrillation. She does take medications for this. Patient has no other complaints at this time however she does feel some pain to her arm. She states that she just suffered a fracture of the humerus. She was admitted recently for arm pain. The ROS documented in this emergency department record has been reviewed and confirmed by me. Those systems with pertinent positive or negative responses have been documented in the HPI. All other systems are other negative and/or noncontributory. PHYSICAL EXAM: General Impression: Alert and oriented x3, not in acute distress him a right upper extremity sling, bruising around the shoulder and right upper chest HEENT: Normocephalic atraumatic, extra-ocular movements intact, pupils equal and reactive to light bilaterally, mucous membranes moist. Cardiovascular: Heart regular rate and rhythm, S1&S2 audible, no murmurs, rubs or gallops Chest: Lungs clear to auscultation bilaterally, no rhonchi, no wheeze, no rales Abdomen: Bowel sounds present, abdomen soft, non-tender, non-distended, no organomegaly Musculoskeletal: Pulses present and equal in all extremities, no peripheral edema Motor: Power 5/5 bilaterally, no focal deficits noted Neurological: CN II-XII grossly intact, no focal motor or sensory deficits noted Skin: Intact with no visualized rashes Psych: Normal affect and mood ED course: 83 y old female sent back from jail for atrial fibrillation with rapid ventricular rate. Patient placed on Cardizem drip. Patient just had laboratory evaluation performed this morning. No need to repeat labs. Vital signs upon arrival shows heart rate of 126. Rest of vital signs within acceptable limits. EKG shows atrial fibrillation with RVR. EKG interpretation: Ventricular rate 128, atrial fibrillation, QRS 84, QTC 481. No [place] prolongation, no QTC prolongation, no ST or T-wave changes noted. Overall, this EKG is unremarkable - Lab Data Lab Results 09/29/18 Range/Units 19:43 POC Glucose (mg/dL) 249 H (75-99) mg/dL POC Glu Clinical Editor ID Disposition Clinical Impression: Atrial fibrillation Disposition: ADMITTED IP TO THIS HOSP Condition: Fair Referrals: Farrukh Kebede MD [Primary Care Provider] - 1-2 days Decision Time: 20:36
[2018-09-29 19:56] LABS: Glucose,Whole Blood 249 mg/dL (75-99)
[2018-09-29] MEDS: DILTIAZEM 50 MG in SODIUM CHLORIDE 0.9% 40 ML IV SCH (20:00)
[2018-09-29] MEDS ORDERED: NALOXONE 0.4 MG/ML 1 ML VIAL IV PRN (20:36)
[2018-09-29] MEDS ORDERED: HYDROmorphone 0.5 MG/0.5 ML SYRINGE IVP STA (20:43)
[2018-09-29 22:34] LABS: Glucose,Whole Blood 271 mg/dL (75-99)
[2018-09-29] MEDS ORDERED: NA PHOS,M-B/NA PHOS,DI-BA 133 ML ENEMA RECTAL PRN (22:47)
[2018-09-29] MEDS ORDERED: BISACODYL 10 MG SUPP RECTAL PRN (22:53)
[2018-09-29] MEDS: SODIUM CHLORIDE 0.9% 1,000 ML IV SCH (22:59)
[2018-09-29] MEDS ORDERED: COLLAGENASE 250 UNIT/GM OINTMENT 30 GM TUBE TOPICAL SCH (23:00)
[2018-09-29] MEDS: INSULIN DETEMIR 100 UNIT/ML 10 ML VIAL SQ SCH (23:01)
[2018-09-30] MEDS ORDERED: ACETAMINOPHEN TAB 325 MG TAB PO SCH
[2018-09-30] MEDS: GABAPENTIN 100 MG CAP PO SCH ×4 (00:08→22:19)
[2018-09-30] MEDS: ENOXAPARIN 40 MG/0.4 ML SYRINGE SQ SCH ×2 (00:08→23:06)
[2018-09-30] MEDS: TROSPIUM CHLORIDE 20 MG TABLET PO SCH ×2 (00:09→22:22)
[2018-09-30] MEDS: DILTIAZEM 50 MG in SODIUM CHLORIDE 0.9% 40 ML IV SCH ×3 (00:33→22:16)
[2018-09-30] MEDS: ACETAMINOPHEN TAB 325 MG TAB PO PRN ×2 (03:46→15:02)
[2018-09-30 06:10] LABS: Glucose,Whole Blood 220 mg/dL (75-99)
[2018-09-30] MEDS: INSULIN ASPART 100 UNIT/ML 1 ML 10 ML VIAL SQ SCH ×7 (07:15→22:08)
[2018-09-30] MEDS: PANTOPRAZOLE 40 MG TABLET PO SCH (07:16)
--- NOTE | 2018-09-30 08:29 | P.CRDCN ---
History of Present Illness Consult date: 09/30/18 Requesting physician: Gabino Rogers Consult reason: atrial fibrillation Chief complaint: Fall History of present illness: This is a pleasant 82-year-old female patient who was transferred from an extended care facility to the hospital with a rapid heart beat . The patient herself is a poor historian, some data was obtained from the patient herself as well as the medical record. The patient does follow with a payment specialist at [facility]. The patient does have an extensive cardiac history consistent off coronary artery disease where she underwent about a year ago a heart catheterization and that revealed extensive triple-vessel coronary artery disease where the patient was told by her payment specialist that she is not amenable to any kind of revascularization and she was treated medically. Beside that she does have history of congestive heart failure, chronic atrial fibrillation for some reason she is not on any oral anticoagulation, diabetes, hypertension, and dyslipidemia. She has been treated for osteomyelitis of the right foot and bilateral lower extremities ulcers related to severe underlying peripheral tear disease has been treated by Dr. Khan. According to the patient, she was admitted to the hospital because she experienced a fall, however according to the EMS report, they were called because patient was in a semi-Bergeron's position and was noted to have a rapid heart beat. Patient was treated here at [facility] for right broken arm after a fall on Tuesday and was discharged. A cardiology consultation was requested because of the A. fib with RVR. EKG on arrival here showed atrial fibrillation with a rapid ventricular response. Upon review of some prior medical records, it appears that the patient had a history of GI bleeding for which is not on anticoagulation at this time. The patient herself denies any history or recalling any history of bleeding in the past. Blood pressure this morning 120/ 70 with a heart rate of 118, 92% on room air. White blood cell count 8.3, hemoglobin 13.2, platelet count 207. Sodium 138, potassium 4.5, BUN 17 and creatinine 0.6. Magnesium 1.7, troponin 0.034. TSH is normal. Chest x-ray shows chronic changes without evidence for acute pulmonary disease. At present the patient is on a Cardizem drip at 5 mg per hour. Most recent echocardiogram with Doppler study was performed in March of last year which revealed an ejection fraction of 45-50%, [id number] TR mild MR and mild to moderate pulmonary hypertension. We will continue the baby aspirin daily, lisinopril hydrochlorothiazide, add small dose of beta sandra. At the time of my examination this morning, patient is quite comfortable, denies any shortness of breath, no palpitations. She is complaining of mild discomfort in her right arm , she does have a sling in place Past Medical History Past Medical History: Atrial Fibrillation, Coronary Artery Disease (CAD), Cancer , Diabetes Mellitus, GERD/Reflux, Hearing Disorder / Deafness, Hyperlipidemia, Hypertension, Osteoarthritis (OA), Skin Disorder Additional Past Medical History / Comment(s): diverticultis, rt arm fx, cervical cancer, pancreatitis, right foot infection, gall stones and removal, FALL/fx coccyx 08-29-17, CONSTIPATION, PAD, RT FOOT (great toe) WOUND HAS BEEN GOING TO THE [facility] , PAST GALLSTONES,lt. foot wound, yeast in abdominal folds History of Any Multi-Drug Resistant Organisms: None Reported Date of last positivie culture/infection: None MDRO Source:: None Past Surgical History: AICD, Bowel Resection, Cholecystectomy, Heart Catheterization, Hysterectomy, Orthopedic Surgery Additional Past Surgical History / Comment(s): Internal defibulator 09-15-17, LT ROTATOR CUFF X2, BUNIONECTOMY JACQUELINE,, JACQUELINE BREAST LUMPECTOMIES-BOTH NEG,, X2 ERCP, RT HAND SX PINS PLACED-BUT SINCE REMOVED, CATARACTS. 12/01/17 picc line inserted- since removed Past Anesthesia/Blood Transfusion Reactions: No Reported Reaction Type of Cardiac Device: AICD Device Placement Date:: 09-15-17 Past Psychological History: No Psychological Hx Reported Additional Psychological History / Comment(s): PT [facility]IVES in [facility],HAS [facility] 3 TIMES A WEEK.USES WALKER OR 4 [employer]ONG CANE. also has a walker, glucometer and monitor for the aicd. Smoking Status: Former smoker Past Alcohol Use History: None Reported Additional Past Alcohol Use History / Comment(s): Smoked sporadically from 1964 till 1967 Past Drug Use History: None Reported - Past Family History Mother Family Medical History: No Reported History Additional Family Medical History / Comment(s): HEART DISEASE Father Family Medical History: Coronary Artery Disease (CAD), Diabetes Mellitus Medications and Allergies Home Medications Medication Instructions Recorded Confirmed Type Pentoxifylline 400 mg PO TID 12/13/16 09/29/18 History Sertraline HCl [Zoloft] 25 mg PO DAILY 12/13/16 09/29/18 History Vit C/E/Zn/Coppr/Lutein/Zeaxan 1 cap PO DAILY 11/10/17 09/29/18 History [Preservision Areds 2 Softgel] metFORMIN HCL 1,000 mg PO BID 11/10/17 09/29/18 History Acetaminophen Tab [Tylenol] 650 mg PO Q6HR tab 03/24/18 09/29/18 Rx Aspirin 81 mg PO DAILY #0 chew 04/03/18 09/29/18 Rx Furosemide [Lasix] 40 mg PO BID@0900,1600 tab 04/03/18 09/29/18 Rx Diltiazem Oral [Cardizem*] 30 mg PO ACHS 09/25/18 09/29/18 History Ergocalciferol [Vitamin D2 50,000 unit PO Q7D 09/25/18 09/29/18 History (DRISDOL)] Lisinopril-Hctz 20-25 mg 1 tab PO DAILY 09/25/18 09/29/18 History [Zestoretic 20-25] Magnesium Oxide [Mag-Ox] 400 mg PO BID 09/25/18 09/29/18 History Omeprazole 40 mg PO DAILY 09/25/18 09/29/18 History Sennosides/Docusate Sodium 1 tab PO BID PRN 09/25/18 09/29/18 History [Senna-S Laxative Tablet] Thiamine [Vitamin B-1] 100 mg PO DAILY 09/25/18 09/29/18 History Tolterodine Tartrate [Detrol LA] 4 mg PO DAILY 09/25/18 09/29/18 History Trospium Chloride 20 mg PO HS 09/25/18 09/29/18 History Vitamin B Complex 1 cap PO DAILY 09/25/18 09/29/18 History Collagenase [Santyl] 1 applic TOPICAL Q24H applic 09/28/18 09/29/18 Rx Gabapentin [Neurontin] 200 mg PO TID #30 cap 09/28/18 09/29/18 Rx Heparin Sodium,Porcine [Heparin 5,000 unit SQ Q12HR vial 09/28/18 09/29/18 Rx Sodium] Insulin Aspart [NovoLOG 5 unit SQ AC-TID vial 09/28/18 09/29/18 Rx (formulary)] Insulin Detemir [Levemir] 15 unit SQ HS syr 09/28/18 09/29/18 Rx Magnesium Hydroxide [Milk of 2,400 mg PO DAILY PRN ml 09/28/18 09/29/18 Rx Magnesia Concentrate] Ondansetron [Zofran] 4 mg IVP Q6HR PRN vial 09/28/18 09/29/18 Rx traMADol HCL [Ultram] 50 mg PO Q4HR PRN 3 Days #18 tab 09/28/18 09/29/18 Rx Bisacodyl [Dulcolax] 10 mg RECTAL DAILY PRN 09/29/18 09/29/18 History Caldesene Powder 1 applic TOPICAL BID 09/29/18 09/29/18 History Insulin Aspart [NovoLOG See Protocol SQ ACHS 09/29/18 09/29/18 History (formulary)] Menthol/Zinc Oxide [Calmoseptine 1 applic TOPICAL BID 09/29/18 09/29/18 History Ointment] Na Phos,M-B/Na Phos,Di-Ba [Fleet 133 ml RECTAL DAILY PRN 09/29/18 09/29/18 History Adult] Allergies Allergy/AdvReac Type Severity Reaction Status Date / Time levofloxacin [From Levaquin] Allergy Mild Rash/Hives Verified 09/29/18 18:39 morphine Allergy Rapid Verified 09/29/18 18:39 Heart Rate Physical Exam Vitals: Vital Signs Temp Pulse Pulse Pulse Resp BP BP 09/30/18 04:00 98.3 F 120 H 18 119/73 09/30/18 00:00 97.8 F 116 H 18 131/82 09/29/18 21:50 98.1 F 120 H 120 H 18 135/75 09/29/18 21:33 98.3 F 111 H 20 116/80 09/29/18 20:00 115 H 20 140/93 09/29/18 19:30 108 H 20 117/89 09/29/18 19:00 119 H 20 117/89 09/29/18 18:41 126 H 09/29/18 18:15 98.1 F 126 H 20 139/86 Pulse Ox 09/30/18 04:00 92 L 09/30/18 00:00 100 01/18/19 21:50 99 09/29/18 21:33 95 09/29/18 20:00 99 09/29/18 19:30 98 09/29/18 19:00 100 09/29/18 18:41 09/29/18 18:15 98 Intake and Output 09/29/18 09/30/18 09/30/18 22:59 06:59 14:59 Intake Total 22.75 Output Total 100 Balance -100 22.75 Intake: Intake, IV Titration 22.75 Amount Diltiazem 50 mg In Sodium 22.75 Chloride 0.9% 40 ml @ 5 MG/HR 5 mls/hr IV .Q10H [facility] Rx#:[id number] Output: Urine 100 Other: Weight 76.9 kg 76.9 kg PHYSICAL EXAMINATION: GENERAL: 83-year-old female in no acute distress at the time of my examination HEENT: Head is atraumatic, normocephalic. Pupils equal, round. Sclera anicteric. Conjunctiva are clear. Mucous membranes of the mouth are moist. Neck is supple. There is no elevated jugular venous pressure. No carotid bruit is heard. HEART EXAMINATION: Heart S1 and S2 irregularly irregular a systolic murmur is heard. CHEST EXAMINATION: Lungs are clear to auscultation and precussion. No chest wall tenderness is noted on palpation or with deep breathing. ABDOMEN: Soft, nontender. Bowel sounds are heard. No organomegaly noted. EXTREMITIES: 1+ peripheral pulses with trace evidence of peripheral edema and no calf tenderness noted. Evidence of ulcerations noted to the lower extremities. Patient does have a sling in place her right arm NEUROLOGIC patient is awake, alert and oriented 1 . . Results Current Medications Generic Name Dose Route Start Last Admin Trade Name Freq PRN Reason Stop Dose Admin Acetaminophen 650 mg 09/29/18 23:07 09/30/18 03:46 Tylenol Tab PO 650 mg Q6HR PRN Administration Pain Aspirin 81 mg 09/30/18 09:00 Aspirin PO DAILY KEVEN Bisacodyl 10 mg 09/29/18 22:53 Dulcolax RECTAL DAILY PRN Constipation Calamine/Phenol 1 applic 09/30/18 09:00 Calmoseptine Oint TOPICAL BID KEVEN Collagenase 1 applic 09/29/18 23:00 Santyl TOPICAL Q24H [facility] Enoxaparin Sodium 40 mg 09/29/18 23:00 09/30/18 00:08 Lovenox SQ 40 mg Q24H [facility] Administration Ergocalciferol 50,000 unit 09/30/18 09:00 Vitamin D2 PO Q7D [facility] Furosemide 40 mg 09/30/18 09:00 Lasix PO BID@0900,1600 [facility] Gabapentin 200 mg 09/29/18 23:00 09/30/18 00:08 Neurontin PO 200 mg TID [facility] Administration Lisinopril/HCTZ 1 each 09/30/18 09:00 Zestoretic 20-25 PO DAILY [facility] Diltiazem HCl 50 mg/ Sodium 50 mls @ 5 mls/hr 09/29/18 19:30 09/30/18 00:33 Chloride IV 5 mg/hr .Q10H [facility] 5 mls/hr Administration 5 MG/HR Sodium Chloride 1,000 mls @ 20 mls/hr 09/29/18 20:45 09/29/18 22:59 Saline 0.9% IV Not Given .Q24H [facility] Insulin Aspart 5 unit 09/30/18 07:30 09/30/18 07:15 Novolog SQ 5 unit AC-TID [facility] Administration Insulin Aspart 0 unit 09/30/18 07:30 09/30/18 07:16 Novolog SQ 3 unit ACHS [facility] Administration Protocol Insulin Detemir 15 unit 09/29/18 21:00 09/29/18 23:01 Levemir SQ 15 unit HS [facility] Administration Magnesium Hydroxide 2,400 mg 09/29/18 22:47 Milk Of Magnesia PO DAILY PRN Constipation Magnesium Oxide 400 mg 09/30/18 09:00 Mag-Ox PO BID [facility] Metformin HCl 1,000 mg 09/30/18 09:00 Glucophage PO BID [facility] Naloxone HCl 0.2 mg 09/29/18 20:36 Narcan IV Q2M PRN Opioid Reversal Ondansetron HCl 4 mg 09/29/18 22:47 Zofran IVP Q6HR PRN Nausea And Vomiting Oxybutynin Chloride 10 mg 09/30/18 09:00 Ditropan Xl PO DAILY [facility] Pantoprazole Sodium 40 mg 09/30/18 07:30 09/30/18 07:16 Protonix PO 40 mg DAILY@0730 [facility] Administration Pentoxifylline 400 mg 09/30/18 09:00 Trental PO TID KEVEN Senna/Docusate Sodium 1 each 09/29/18 22:47 Senokot-S PO BID PRN Constipation Sertraline HCl 25 mg 09/30/18 09:00 Zoloft PO DAILY KEVEN Sodium Biphosphate/Sodium Phosphate 133 ml 09/29/18 22:47 Fleet Adult RECTAL DAILY PRN Constipation Thiamine HCl 100 mg 09/30/18 09:00 Vitamin B-1 PO DAILY KEVEN Tramadol HCl 50 mg 09/29/18 22:47 Ultram PO Q4HR PRN Severe Pain Trospium 20 mg 09/29/18 23:00 09/30/18 00:09 Sanctura PO 20 mg HS KEVEN Administration Intake and Output 09/29/18 09/30/18 09/30/18 22:59 06:59 14:59 Intake Total 22.75 Output Total 100 Balance -100 22.75 Intake: Intake, IV Titration 22.75 Amount Diltiazem 50 mg In Sodium 22.75 Chloride 0.9% 40 ml @ 5 MG/HR 5 mls/hr IV .Q10H KEVEN Rx#:[id number] Output: Urine 100 Other: Weight 76.9 kg 76.9 kg EKG Interpretations (text) EKG shows atrial fibrillation with a rapid ventricular response Assessment and Plan Plan: Assessment and plan #1 atrial fibrillation with rapid ventricular response, chronic persistent. Patient not on anticoagulation because of history of GI bleeding according to prior medical records #2 recent fall for which patient incurred a fracture to her right arm #3 severe underlying coronary artery disease according to the prior documentation and patient's family. Patient apparently underwent a heart cath with the past one to 2 years which revealed triple vessel coronary artery disease not amendable to intervention or bypass. #4 severe peripheral arterial disease/critical limb ischemia #5 hypertension 6 diabetes #7 hyperlipidemia Plan We will obtain a repeat echocardiogram with Doppler study, most recent one was performed in March of last year which revealed an ejection fraction of 45%. TSH level is normal. Continue IV Cardizem drip, add small dose of beta sandra. Further recommendations to follow. DNP note has been reviewed, I agree with a documented findings and plan of care. Patient was seen and examined.
[2018-09-30] MEDS ORDERED: NON-FORMULARY DRUG (Vit C/E/Zn/Coppr/Lutein/Zeaxan [Preservision Areds 2 Softgel] 1 CAP) PO SCH (09:00)
[2018-09-30] MEDS ORDERED: NON-FORMULARY DRUG (Vitamin B Complex [Vitamin B Complex] 1 CAP) PO SCH (09:00)
[2018-09-30] MEDS ORDERED: CALDESENE TOPICAL SCH (09:00)
[2018-09-30] MEDS: FUROSEMIDE 40 MG TAB PO SCH ×2 (09:27→15:09)
[2018-09-30] MEDS: THIAMINE 100 MG TAB PO SCH (09:27)
[2018-09-30] MEDS: METOPROLOL TARTRATE 25 MG TAB PO SCH ×2 (09:27→22:18)
[2018-09-30] MEDS: metFORMIN 500 MG TAB PO SCH ×2 (09:27→22:17)
[2018-09-30] MEDS: MENTHOL-ZINC OXIDE OINT 113 GM TUBE TOPICAL SCH ×2 (09:27→22:17)
[2018-09-30] MEDS: MAGNESIUM OXIDE 400 MG TAB PO SCH ×2 (09:27→22:17)
[2018-09-30] MEDS: ERGOCALCIFEROL 50,000 UNIT CAP PO SCH (09:27)
[2018-09-30] MEDS: ASPIRIN 81 MG PO SCH (09:27)
[2018-09-30] MEDS: SERTRALINE 25 MG TAB PO SCH (09:27)
[2018-09-30] MEDS: PENTOXIFYLLINE 400 MG TABLET.ER PO SCH ×3 (09:28→22:22)
[2018-09-30] MEDS: OXYBUTYNIN 10 MG TAB.ER.24 PO SCH (09:28)
[2018-09-30] MEDS: LISINOPRIL-HCTZ 20-25 MG 1 EACH TAB PO SCH (09:28)
[2018-09-30] MEDS: traMADol 50 MG TAB PO PRN ×3 (09:36→22:19)
[2018-09-30] MEDS: SENNOSIDES-DOCUSATE SODIUM 1 EACH TAB PO PRN (09:36)
--- NOTE | 2018-09-30 12:20 | ECHOF ---
Referral Reason:afib MEASUREMENTS -------- HEIGHT: 157.5 cm WEIGHT: 76.7 kg BP: 170/50 IVSd: 1.3 cm (0.6 - 1.1) LVIDd: 4.3 cm (3.9 - 5.3) LVPWd: 1.3 cm (0.6 - 1.1) IVSs: 1.7 cm LVIDs: 3.6 cm LVPWs: 1.3 cm LAESV Index (A-L): 56.12 ml/m Ao Diam: 3.6 cm (2.0 - 3.7) AV Cusp: 1.2 cm (1.5 - 2.6) LA Diam: 3.9 cm (2.7 - 3.8) MV E Geovani: 0.62 m/s MV DecT: 146 ms MV A Geovani: 0.03 m/s MV E/A Ratio: 19.10 AV maxP.81 mmHg AV meanP.02 mmHg RAP: 5.00 mmHg RVSP: 44.48 mmHg FINDINGS -------- Paced rhythm. This was a technically adequate study. The left ventricular size is normal. There is mild concentric left ventricular hypertrophy. Overa ll left ventricular systolic function is moderately impaired with, an EF between 35 - 40 %. The right ventricle is normal in size. The left atrium is markedly dilated. LA is severely dilated >40 ml/m2 The right atrial size is normal. There is moderate aortic valve sclerosis. Peak/mean gradient across the Aortic Valve is 12.81mmHg / 7.02mmHg. The mitral valve leaflets are mildly thickened. Mild mitral annular calcification present. Modera te mitral regurgitation is present. Mild tricuspid regurgitation present. There is mild pulmonary hypertension. The right ventricular systolic pressure, as measured by Doppler, is 44.48mmHg. There is no pulmonic regurgitation present. The aortic root size is normal. There is no pericardial effusion. CONCLUSIONS -------- 1. The left ventricular size is normal. 2. There is mild concentric left ventricular hypertrophy. 3. Overall left ventricular systolic function is moderately impaired with, an EF between 35 - 40 %. 4. The right ventricle is normal in size. 5. The left atrium is markedly dilated. 6. LA is severely dilated >40 ml/m2 7. The right atrial size is normal. 8. There is moderate aortic valve sclerosis. 9. Peak/mean gradient across the Aortic Valve is 12.81mmHg / 7.02mmHg. 10. The mitral valve leaflets are mildly thickened. 11. Mild mitral annular calcification present. 12. Moderate mitral regurgitation is present. 13. Mild tricuspid regurgitation present. 14. There is mild pulmonary hypertension. 15. The right ventricular systolic pressure, as measured by Doppler, is 44.48mmHg. 16. There is no pulmonic regurgitation present. 17. The aortic root size is normal. 18. There is no pericardial effusion. CLOTH PRINTER HELPER: Crystal Diggs RDCS
[2018-09-30] MEDS: ONDANSETRON 4 MG/2 ML VIAL IVP PRN ×2 (12:26→18:00)
[2018-09-30 12:47] LABS: Glucose,Whole Blood 174 mg/dL (75-99)
[2018-09-30] MEDS: MAGNESIUM HYDROXIDE 2,400 MG/10 ML CUP PO PRN (13:47)
[2018-09-30 14:25] LABS: Hemoglobin A1C 8.3 % (4.0-6.0)
[2018-09-30 17:09] LABS: Glucose,Whole Blood 134 mg/dL (75-99)
[2018-09-30] MEDS: DICLOFENAC SODIUM GEL 100 GM TUBE TOPICAL SCH ×2 (17:52→22:18)
[2018-09-30] MEDS: COLLAGENASE 250 UNIT/GM OINTMENT 30 GM TUBE TOPICAL SCH (20:39)
--- NOTE | 2018-09-30 21:18 | HP ---
HISTORY AND PHYSICAL DATE OF ADMISSION: 09/29/2018 DATE OF SERVICE: 09/30/2018 PRESENTING COMPLAINT: Increased heart rate. HISTORY OF PRESENTING COMPLAINT: This is a pleasant 83-year-old patient who follows with Dr. Kebede, currently a resident of [facility]. Chronic stable medical conditions include diabetes, peripheral artery disease, coronary artery disease, hyperlipidemia, hypertension, osteoarthritis, urinary stress incontinence, hypertension, hard of hearing, peripheral neuropathy. The patient also has got a right humeral neck fracture and right arm is in a sling. This happened from a fall recently. The patient was sent in and presented to the ER with the daughter. Because heart rate was up to the 130s, the patient was put on a Cardizem drip. Because of a prior GI bleed, the patient is not a candidate for anticoagulation and Cardiology was consulted. The patient is also having pain on the right part of the scalp, posteriorly where she had fallen behind the right ear, which is tender. REVIEW OF SYSTEMS: CONSTITUTIONAL: Tired. HEENT: Decreased hearing. RESPIRATORY: Some shortness of breath. CARDIOVASCULAR: As above. GASTROINTESTINAL: None. GENITOURINARY: Incontinence. MUSCULOSKELETAL: Aches and pains in different joints, especially the right arm. HEMATOLOGICAL none. LYMPHATICS: None. PSYCHIATRY none. NEUROLOGICAL: None. DERMATOLOGICAL: The patient has got an ulcer on the left foot toe, also on the left foot. PAST MEDICAL HISTORY: Atrial fibrillation, coronary artery disease, diabetes, GERD, hard of hearing, hyperlipidemia, hypertension, osteoarthritis, diverticulitis, right humeral head fracture, cervical cancer, pancreatitis, right foot osteomyelitis that had healed, gallstones. PAST SURGICAL HISTORY: AICD, bowel resection, cholecystectomy, hysterectomy, rotator cuff times two, bunionectomy, bilateral breast lumpectomy, right hand surgical pin placed, removed; cataract. SOCIAL HISTORY: Patient lives at [facility]. Uses a walker or a 4 pronged cane. No smoking. No alcohol. FAMILY HISTORY: Of heart disease. HOME MEDICATIONS: 1. Ultram 50 mg q.4 p.r.n. 2. Metformin 1000 mg b.i.d. 3. Vitamin B complex 1 capsule p.o. daily. 4. PreserVision 1 capsule p.o. daily. 5. Trospium 20 mg p.o. q.h.s. 6. Detrol LA 4 mg p.o. daily. 7. Thiamine 100 mg p.o. daily. 8. Zoloft 25 mg p.o. daily. 9. Senna S1 tablet p.o. b.i.d. p.r.n. 10.Pentoxifylline 400 mg p.o. t.i.d. 11.Zofran 4 mg IV push q.6h p.r.n. 12.Omeprazole 40 mg p.o. daily. 13.Fleet Adult p.r.n. 14.Calmoseptine 1 application topical b.i.d. 15.Magnesium oxide 400 mg p.o. b.i.d. 16.Milk of magnesia 2400 mg daily p.r.n. 17.Zestoretic 1 tablet p.o. daily. 18.Levemir 15 units subcu q.h.s. 19.NovoLog 5 units a.c. t.i.d. 20.Heparin 5000 units subcu q.12h. 21.Neurontin 200 mg t.i.d. 22.Lasix 40 mg b.i.d. 23.Vitamin D2 65195 units p.o. every 7 days. 24.Cardizem 30 mg a.c. q.h.s. 25.Santyl topical q24 on the left foot. 26. powder. 27.Dulcolax 10 mg rectally daily p.r.n. 28.Aspirin 81 mg p.o. daily. 29.Tylenol p.r.n. ALLERGIES: TO LEVAQUIN AND MORPHINE. PHYSICAL EXAMINATION: VITAL SIGNS: Vital signs on presentation, temp 98.1, pulse 126, respiration 20, blood pressure 131/86, pulse ox 98% on 2 L. GENERAL APPEARANCE: Average built, sitting up, tired appearing. EYES: Pupils equal. Conjunctivae normal. HEENT: External appearance of nose and ears normal. Oral cavity normal. NECK: JVD not raised. Mass not palpable. RESPIRATORY: Effort normal. LUNGS: Fair entry. CARDIOVASCULAR: Heart sounds irregular. No edema. ABDOMEN: Soft, nontender. Liver and spleen not palpable. LYMPHATICS: No lymph nodes palpable in the neck and axilla. PSYCHIATRY: Alert and oriented x3. Mood and affect tired-appearing. HEENT decreased hearing. Also patient is tender behind the right ear just around the mastoid area. EXTREMITIES: Right arm in a sling. INVESTIGATIONS: Accu-Cheks are noted. ASSESSMENT: 1. Persistent atrial fibrillation with rapid ventricular rate. Patient is not a candidate for anticoagulation because of prior gastrointestinal bleed. 2. Diabetes mellitus type 2, chronically on insulin. 3. Peripheral artery disease. 4. Coronary artery disease. 5. Hyperlipidemia. 6. Essential hypertension. 7. Primary osteoarthritis. 8. Chronic urinary stress incontinence. 9. Hypertension. 10.Hard of hearing. 11.Peripheral neuropathy. 12.Wound on the left foot, being followed by [facility]. [facility]qu[facility] and also seen by Dr. Cortez previously. 13.Right humeral neck fracture with arm sling in place. 14.Medical debility, uses a walker. 15.Local bone bruising behind the right ear from recent fall. PLAN: Cardiology was consulted. We will start the patient on Cardizem. Other home medications are resumed. Will alternate ice pack and heating at the site of the pain behind the right ear. We will also use some Voltaren gel that can be also used for the joints. Care was discussed with the patient. Questions were answered. Copy to Dr. Kebede. XIOMARA / BRANDO: [id number] /
[2018-09-30 21:58] LABS: Glucose,Whole Blood 131 mg/dL (75-99)
[2018-09-30] MEDS: SODIUM CHLORIDE 0.9% 1,000 ML IV SCH (22:16)
[2018-09-30] MEDS: INSULIN DETEMIR 100 UNIT/ML 10 ML VIAL SQ SCH (22:17)
[2018-10-01] MEDS: traMADol 50 MG TAB PO PRN ×2 (06:05→11:43)
[2018-10-01 06:09] LABS: Glucose,Whole Blood 107 mg/dL (75-99)
[2018-10-01] MEDS: INSULIN ASPART 100 UNIT/ML 1 ML 10 ML VIAL SQ SCH ×7 (07:01→22:00)
[2018-10-01] MEDS: PANTOPRAZOLE 40 MG TABLET PO SCH (07:05)
[2018-10-01] MEDS: THIAMINE 100 MG TAB PO SCH (08:22)
[2018-10-01] MEDS: DICLOFENAC SODIUM GEL 100 GM TUBE TOPICAL SCH ×4 (08:22→22:06)
[2018-10-01] MEDS: SERTRALINE 25 MG TAB PO SCH (08:22)
[2018-10-01] MEDS: MAGNESIUM OXIDE 400 MG TAB PO SCH ×2 (08:22→20:39)
[2018-10-01] MEDS: metFORMIN 500 MG TAB PO SCH ×2 (08:22→20:39)
[2018-10-01] MEDS: METOPROLOL TARTRATE 25 MG TAB PO SCH (08:22)
[2018-10-01] MEDS: GABAPENTIN 100 MG CAP PO SCH ×3 (08:22→22:06)
[2018-10-01] MEDS: ASPIRIN 81 MG PO SCH (08:22)
[2018-10-01] MEDS: FUROSEMIDE 40 MG TAB PO SCH ×2 (08:22→17:41)
[2018-10-01] MEDS: MENTHOL-ZINC OXIDE OINT 113 GM TUBE TOPICAL SCH ×2 (08:23→22:26)
[2018-10-01] MEDS: COLLAGENASE 250 UNIT/GM OINTMENT 30 GM TUBE TOPICAL SCH (08:23)
[2018-10-01] MEDS: LISINOPRIL-HCTZ 20-25 MG 1 EACH TAB PO SCH (08:23)
[2018-10-01] MEDS: PENTOXIFYLLINE 400 MG TABLET.ER PO SCH ×3 (08:23→22:06)
[2018-10-01] MEDS: OXYBUTYNIN 10 MG TAB.ER.24 PO SCH (08:24)
--- NOTE | 2018-10-01 09:11 | CONS ---
CONSULTATION DATE OF SERVICE: 09/30/2018. REASON FOR CONSULTATION: Left foot wound. 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 The last admission was back in March of 2018. That wound is completely healed. The patient recently did develop a wound on the medial aspect of her left big toe for which the patient was initially evaluated in the [facility] by Dr. Oquendo on 07/24/2018. The patient current local wound care has been Santyl and last evaluated with the same condition in the Wound Care was on 09/11/2018. The patient has now been brought to the ER at [facility] for evaluation of a palpitation and tachycardia with heart rates in 130s. The patient also recently had a right humeral fracture with currently in the sling. The patient denies having any fever or chills. No chest pain or cough. No abdominal pain. She did have mild pain to the left foot mostly in the heel area with the patient did have small slit wound as far as the left big toe, this wound is concerned, mild pain, dull, aching 1 to 2/10, and no radiation. There is no significant surrounding swelling, redness or any foul-smelling drainage. The patient currently not on any systemic antibiotic therapy. REVIEW OF SYSTEMS: Positive points have been mentioned in the HPI. The rest of 14 systems has been negative. PAST MEDICAL HISTORY: Coronary artery disease, type 2 diabetes mellitus, hypertension, hyperlipidemia, atrial fibrillation, diverticulitis, history of colon cancer, pancreatitis, right big toe osteomyelitis secondary Enterococcus aeruginosa. PAST SURGICAL HISTORY: Heart catheterization, cholecystectomy, bowel resection, AICD placement, bilateral breast lumpectomy and right knee surgery and debridement of the right as well as left big toe wound. SOCIAL HISTORY: The patient denies smoking, drinking, or drug use. FAMILY HISTORY: Diabetes and Crohn's disease. ALLERGIES: TO LEVAQUIN AND MORPHINE. MEDICATIONS: Medications include the patient is currently on Tylenol, aspirin, Dulcolax, Calmoseptine ointment, diltiazem, Lovenox, vitamin D2, Lasix,Neurontin, Zestoretic, NovoLog, Levemir, milk of magnesia, Mag oxide, Glucophage, Lopressor, Narcan, Zofran, Xopenex, Ditropan XL, Protonix, Trental, Senokot, Zoloft, Ultram, . PHYSICAL EXAMINATION: Blood pressure is 127/74, pulse of 95. Temperature 97.1. She is 99% on room air. General description is an elderly female lying in bed in no distress. No tachypnea or accessory muscles of respiration use. HEENT: Shows slight pallor. No scleral icterus. Oral mucosa membranes are dry. No pharyngeal erythema or thrush. Neck: Trachea is central. No thyromegaly. LUNGS: Unlabored breathing. Clear to auscultation anteriorly. No wheeze or crackles. Heart S1-S2 is irregular rhythm . ABDOMEN: Soft, no tenderness. No guarding. No rigidity. EXTREMITIES: No edema of the feet. Skin examination: No rashes or mass palpable. Examination of the left foot on the medial aspect at the base of the big toe did have a small wound with some slough tissue. No significant surrounding erythema, warm to touch or any foul-smelling drainage. NEUROLOGICAL: Patient is awake, alert, oriented times three. Mood and affect normal. LABS: The patient blood sugars 192 with hemoglobin A1C is 8.3. No CBC or BMP has been done on this patient since admission. DIAGNOSTIC IMPRESSION AND PLAN: 1. Patient with nonhealing wound to the left foot at the base of the left big toe and likely a Shanna's grade 2 with currently no evidence of secondary infection or osteomyelitis. The wound base did have slough tissue and will be recommended local wound care without need for any systemic antibiotic therapy. 2. Patient with slight pain to the left heel area, more likely pressure related with a small slit wound, possible stage II pressure ulcer. PLAN: 1. We will order Santyl to be applied to the left foot wound at the base of the big toe followed by moist dressing to be changed daily. 2. Heel protectors to the left heel. 3. No need for systemic antibiotic therapy. 4. We will follow up on clinical condition to further adjust medication if needed. Thank you for this consultation. We will follow this patient along with you. MMODL / IJN: [id number] /
[2018-10-01] MEDS: MAGNESIUM HYDROXIDE 2,400 MG/10 ML CUP PO PRN (11:43)
[2018-10-01] MEDS: DILTIAZEM 50 MG in SODIUM CHLORIDE 0.9% 40 ML IV SCH (11:44)
[2018-10-01 12:06] LABS: Glucose,Whole Blood 131 mg/dL (75-99)
--- NOTE | 2018-10-01 12:29 | P.PN ---
Subjective Progress Note Date: 10/01/18 Principal diagnosis: Atrial fibrillation with rapid ventricular response This is a pleasant 83-year-old female patient with a past medical history significant for coronary artery disease, chronic atrial fibrillation, not on any oral anticoagulation, as well as multiple comorbid conditions, was admitted to the hospital was atrial fibrillation with rapid ventricular response. Please note that the patient fell a few weeks ago and fractured her left arm. She underwent an echocardiogram which revealed impaired LV function was EF around 35% with moderate MR. There was also mild aortic stenosis. On follow-up with her today, she is feeling slightly better. The heart rate continues to be around 100 on the current dose of metoprolol which is 25 mg by mouth twice a day and also on Cardizem at 5 mg per hour. I am going to increase the dose of metoprolol to 50 mg by mouth twice a day and DC the Cardizem drip. Objective - Vital Signs Vital signs: Vital Signs Temp 97.8 F 10/01/18 08:00 Pulse 102 H 10/01/18 11:35 Resp 17 10/01/18 11:35 BP 112/70 10/01/18 11:35 Pulse Ox 96 10/01/18 11:35 Intake & Output 09/30/18 10/01/18 10/01/18 18:59 06:59 18:59 Intake Total 250 25 50 Output Total 600 Balance -350 25 50 Intake: Intake, IV Titration 50 25 50 Amount Diltiazem 50 mg In Sodium 50 25 50 Chloride 0.9% 40 ml @ 5 MG/HR 5 mls/hr IV .Q10H [facility] Rx#:[id number] Oral 200 Output: Urine 600 - Constitutional General appearance: Present: no acute distress - Respiratory Respiratory: bilateral: diminished - Cardiovascular Rhythm: irregularly irregular Heart sounds: normal: S1, S2 Abnormal Heart Sounds: Present: systolic murmur - Labs Labs: Abnormal Lab Results - Last 24 Hours (Table) 09/30/18 09/30/18 09/30/18 Range/Units 06:46 11:50 16:46 POC Glucose (mg/dL) 174 H 134 H (75-99) mg/dL Hemoglobin A1c 8.3 H (4.0-6.0) % 09/30/18 10/01/18 10/01/18 Range/Units 21:36 05:48 11:59 POC Glucose (mg/dL) 131 H 107 H 131 H (75-99) mg/dL Hemoglobin A1c (4.0-6.0) % Assessment and Plan Assessment: Assessment #1 atrial fibrillation with rapid ventricular response #2 known chronic persistent atrial fibrillation #3 coronary artery disease #4 ischemic cardiomyopathy #5 multiple comorbid conditions Plan #1 DC Cardizem IV and increase the dose of metoprolol #2 the patient is not a candidate to receive oral anticoagulation, obviously because of high risk of falling and bleeding #3 follow-up with the patient.
[2018-10-01] MEDS ORDERED: METOPROLOL TARTRATE 25 MG TAB PO STA (12:35)
[2018-10-01 16:56] LABS: Glucose,Whole Blood 108 mg/dL (75-99)
[2018-10-01] MEDS: METOPROLOL TARTRATE 50 MG TAB PO SCH (20:38)
[2018-10-01 21:10] LABS: Glucose,Whole Blood 118 mg/dL (75-99)
--- NOTE | 2018-10-01 21:59 | PN ---
PROGRESS NOTE DATE OF SERVICE: 10/01/2018 PRESENTING COMPLAINT: Increased heart rate. INTERVAL HISTORY: Patient admitted with atrial fibrillation with rapid ventricular rate. The patient had been on a Cardizem drip earlier today. Cardiology did increase the Lopressor and stop the Cardizem drip. Later today the heart rate is better controlled. The patient has got chronic pain in the fracture in the right upper extremity. The patient's also pain behind the right ear is now better. The patient did tolerate some diet. The patient also seen by Dr. Cortez from Infectious Disease. REVIEW OF SYSTEMS: Done for constitutional, cardiovascular, GI, pulmonary, musculoskeletal and findings as above. CURRENT MEDICATIONS: Reviewed that include p.o. Lasix and Lopressor 50 mg b.i.d. EXAMINATION: VITAL SIGNS: Temperature 98, pulse 85, respirations 16, blood pressure 100/61, pulse 95% on room air. GENERAL APPEARANCE: Lying in bed, awake. EYES: Pupils equal. Conjunctivae normal. NECK: JVD not raised. Mass not palpable. Respiratory effort normal. LUNGS: Fair air entry. CARDIOVASCULAR: Heart sounds irregular. No edema. ABDOMEN: Soft, nontender. Liver and spleen not palpable. PSYCHIATRY: Alert and oriented x3. Mood and affect normal. EXTREMITIES: Right arm in a sling. INVESTIGATIONS: Telemetry shows heart rate better controlled. ASSESSMENT: 1. Persistent atrial fibrillation with rapid ventricular rate on presentation, now better controlled. Patient not a candidate for anticoagulation because of prior GI bleed. 2. Diabetes mellitus type 2, chronically on insulin. 3. Peripheral artery disease. 4. Coronary artery disease. 5. Hyperlipidemia. 6. Essential hypertension. 7. Primary osteoarthritis. 8. Chronic urinary stress incontinence. 9. Hypertension. 10.Hard of hearing. 11.Peripheral neuropathy. 12.Chronic wound on the ball of the left big toe, not infected, Toñito's grade 2. 13.Stage II wound on the left heel, pressure ulcer, present on admission. 14.Right humeral neck fracture with an arm sling in place. 15.Medical debility, uses a walker. 16.Local bone bruising behind the right ear from recent fall. PLAN: Patient overall doing better, stable. Heart rate is better controlled. Dr. Cortez's consult was noted. Hopefully patient can be discharged to the [facility] tomorrow. MMODL / IJN: [id number] /
[2018-10-01] MEDS: TROSPIUM CHLORIDE 20 MG TABLET PO SCH (22:06)
[2018-10-01] MEDS: INSULIN DETEMIR 100 UNIT/ML 10 ML VIAL SQ SCH (22:06)
[2018-10-01] MEDS: ENOXAPARIN 40 MG/0.4 ML SYRINGE SQ SCH (22:07)
[2018-10-01] MEDS: SODIUM CHLORIDE 0.9% 1,000 ML IV SCH (22:26)
--- NOTE | 2018-10-01 23:49 | PN ---
PROGRESS NOTE DATE OF SERVICE: 10/01/2018. REASON FOR FOLLOWUP: Left foot wound. INTERVAL HISTORY: The patient is currently afebrile. She is breathing comfortably. She has been complaining of pain to the right upper arm area along with constipation. No worsening pain to the left foot pain. No nausea, no vomiting. PHYSICAL EXAMINATION: Blood pressure is 100/61 with a pulse of 75, temperature of 98. She is 95% on room air. General description is an elderly female lying in bed in no distress. Respiratory system: Unlabored breathing. Clear to auscultation anteriorly. Heart S1, S2. Regular rate and rhythm. Abdomen soft. No tenderness. Left foot is currently dressed up. No obvious drainage on the dressing. LABS: No new lab have been obtained today. DIAGNOSTIC IMPRESSION AND PLAN: Patient with left diabetic foot wound Shanna's stage II with no evidence of any cellulitis or osteomyelitis. The patient at this time to continue wound care with Santyl followed by moist dressing to keep the area off the pressure along with heel protectors. No need for systemic antibiotic therapy. MMODL / IJN: [id number] /
[2018-10-02] MEDS: traMADol 50 MG TAB PO PRN ×2 (00:29→04:32)
[2018-10-02 05:48] LABS: Glucose,Whole Blood 161 mg/dL (75-99)
[2018-10-02] MEDS: PANTOPRAZOLE 40 MG TABLET PO SCH (07:16)
[2018-10-02] MEDS: INSULIN ASPART 100 UNIT/ML 1 ML 10 ML VIAL SQ SCH ×7 (07:16→21:05)
[2018-10-02] MEDS: COLLAGENASE 250 UNIT/GM OINTMENT 30 GM TUBE TOPICAL SCH (09:09)
[2018-10-02] MEDS: PENTOXIFYLLINE 400 MG TABLET.ER PO SCH ×2 (09:33→15:56)
[2018-10-02] MEDS: GABAPENTIN 100 MG CAP PO SCH ×2 (09:33→15:56)
[2018-10-02] MEDS: METOPROLOL TARTRATE 50 MG TAB PO SCH ×2 (09:33→20:03)
[2018-10-02] MEDS: DICLOFENAC SODIUM GEL 100 GM TUBE TOPICAL SCH ×3 (09:33→17:59)
[2018-10-02] MEDS: LISINOPRIL-HCTZ 20-25 MG 1 EACH TAB PO SCH (09:33)
[2018-10-02] MEDS: OXYBUTYNIN 10 MG TAB.ER.24 PO SCH (09:33)
[2018-10-02] MEDS: MAGNESIUM OXIDE 400 MG TAB PO SCH (09:33)
[2018-10-02] MEDS: THIAMINE 100 MG TAB PO SCH (09:33)
[2018-10-02] MEDS: ASPIRIN 81 MG PO SCH (09:33)
[2018-10-02] MEDS: FUROSEMIDE 40 MG TAB PO SCH ×2 (09:33→15:56)
[2018-10-02] MEDS: metFORMIN 500 MG TAB PO SCH (09:33)
[2018-10-02] MEDS: SERTRALINE 25 MG TAB PO SCH (09:33)
--- NOTE | 2018-10-02 11:15 | CDI ---
Documentation Clarification Form Date: 10/02/2018 10:55:45 AM From: Amy Ruiz RN, CCDS Admit Date: 09/29/2018 8:36:00 PM Patient Name: Natalia Vega Visit Number: [id number] ATTENTION: The Clinical Documentation Specialists (CDI) and [facility] Coding Staff appreciate your assistance in clarifying documentation. Please respond to the clarification below the line at the bottom and electronically sign. The CDI & [facility] Coding staff will review the response and follow-up if needed. Please note: Queries are made part of the Legal Health Record. If you have any questions, please contact the author of this message via ITS. Dr. Gaibno Rogers CHF is documented in the cardiology Consult an requires further specificity History/Risk Factors: pad, cad, hyperlipidemia, htn, cad Clinical Indicators: 09/30 Cardiology Consult: "she does have history of congestive heart failure, chronic atrial fibrillation for some reason she is not on any oral anticoagulation, diabetes, hypertension, and dyslipidemia." VS/Pulse OX: Temp 98.1, hr 126, rr 20, b/p 139/86, spo2 98% 2l nc 09/30/18 Echocardiogram Results: Ef 35%-40% Treatment: Po Lasix 40 mg BID In your professional opinion, can you please clarify the acuity and type of CHF if known? Systolic Heart Failure: Acute Chronic Acute on Chronic Systolic & Diastolic Heart Failure: Acute Chronic Acute on Chronic Heart Failure Unable to Determine Other, please specify (Last Revision: December 2017) see dc summary. response dictataed MTDD
[2018-10-02 11:40] LABS: Glucose,Whole Blood 138 mg/dL (75-99)
--- NOTE | 2018-10-02 12:01 | P.PN ---
Subjective Progress Note Date: 10/02/18 Principal diagnosis: Atrial fibrillation with rapid ventricular response This is a pleasant 83-year-old female patient with a past medical history significant for coronary artery disease, chronic atrial fibrillation, not on any oral anticoagulation, as well as multiple comorbid conditions, was admitted to the hospital was atrial fibrillation with rapid ventricular response. Please note that the patient fell a few weeks ago and fractured her left arm. She underwent an echocardiogram which revealed impaired LV function was EF around 35% with moderate MR. There was also mild aortic stenosis. On follow-up with the patient today, October 022018, she is feeling overall better. Denies having any chest pain or discomfort. No shortness of breath. She continues to be in atrial fibrillation was controlled heart rate on the current medical regimen. She is not a candidate for anticoagulation giving her history of falling and bleeding. Objective - Vital Signs Vital signs: Vital Signs Temp 97.9 F 10/02/18 08:45 Pulse 61 10/02/18 08:45 Resp 18 10/02/18 08:45 BP 126/69 10/02/18 08:45 Pulse Ox 97 10/02/18 08:45 Intake & Output 10/01/18 10/02/18 10/02/18 18:59 06:59 18:59 Intake Total 50 100 Output Total 0 Balance 50 100 Weight 74.1 kg Intake: Intake, IV Titration 50 Amount Diltiazem 50 mg In Sodium 50 Chloride 0.9% 40 ml @ 5 MG/HR 5 mls/hr IV .Q10H [facility] Rx#:[id number] Oral 100 Output: Urine 0 Other: Voiding Method Bedside Commode # Voids 1 - Constitutional General appearance: Present: no acute distress - Respiratory Respiratory: bilateral: diminished - Cardiovascular Rhythm: irregularly irregular - Labs Labs: Abnormal Lab Results - Last 24 Hours (Table) 10/01/18 10/01/18 10/01/18 Range/Units 11:59 16:53 21:08 POC Glucose (mg/dL) 131 H 108 H 118 H (75-99) mg/dL 10/02/18 10/02/18 Range/Units 05:47 11:38 POC Glucose (mg/dL) 161 H 138 H (75-99) mg/dL Assessment and Plan Assessment: Assessment #1 atrial fibrillation with rapid ventricular response #2 known chronic persistent atrial fibrillation #3 coronary artery disease #4 ischemic cardiomyopathy #5 multiple comorbid conditions Plan #1 continue the current dose of metoprolol #2 the patient is not a candidate to receive oral anticoagulation, obviously because of high risk of falling and bleeding #3 follow-up with the patient.
[2018-10-02] MEDS: MENTHOL-ZINC OXIDE OINT 113 GM TUBE TOPICAL SCH ×2 (14:29→20:04)
--- NOTE | 2018-10-02 16:06 | PN ---
PROGRESS NOTE DATE OF SERVICE: 10/02/2018 REASON FOR FOLLOWUP: Left foot wound. INTERVAL HISTORY: The patient is currently afebrile. She is breathing comfortably. Denies having any chest pain or cough. No abdominal pain or diarrhea. PHYSICAL EXAMINATION: Blood pressure 101/53 with a pulse of 92, temperature 97.1. She is 93% on room air. General description is an elderly female lying in bed in no distress. RESPIRATORY SYSTEM: Unlabored breathing. Clear to auscultation anteriorly. HEART: S1, S2. Regular rate and rhythm. ABDOMEN: Soft. No tenderness. Left foot is currently dressed up. No obvious drainage on the dressing. DIAGNOSTIC IMPRESSION AND PLAN: Patient with left foot wound, diabetic Shanna grade 2. Local care to continue with the Santyl followed by moist dressing. Continue with supportive care. MMODL / IJN: [id number] /
[2018-10-02 16:42] LABS: Glucose,Whole Blood 125 mg/dL (75-99)
[2018-10-02] MEDS ORDERED: MAGNESIUM CITRATE 296 ML BOTTLE PO ONE (16:54)
[2018-10-02] MEDS: TROSPIUM CHLORIDE 20 MG TABLET PO SCH (20:03)
[2018-10-02 20:55] LABS: Glucose,Whole Blood 109 mg/dL (75-99)
[2018-10-02] MEDS: SODIUM CHLORIDE 0.9% 1,000 ML IV SCH (21:05)
[2018-10-02 21:38] LABS: Glucose,Whole Blood 141 mg/dL (75-99)
[2018-10-02 22:44] LABS: Anisocytosis Slight; Basophils % (A) 0 %; Eosinophils # (A) 0.2 k/uL (0-0.7); Eosinophils % (A) 2 %; HCT 43.4 % (34.0-46.0); HGB 14.4 gm/dL (11.4-16.0); Lymphocytes # (A) 1.5 k/uL (1.0-4.8); Lymphocytes % (A) 15 %; MCH 30.5 pg (25.0-35.0); MCHC 33.2 g/dL (31.0-37.0); MCV 92.1 fL (80.0-100.0); Monocytes # (A) 0.4 k/uL (0-1.0); Monocytes % (A) 4 %; Neutrophils # (A) 7.9 k/uL (1.3-7.7); Neutrophils % (A) 78 %; Platelet Count 296 k/uL (150-450); RBC 4.71 m/uL (3.80-5.40); WBC 10.1 k/uL (3.8-10.6)
[2018-10-02 22:52] LABS: Calcium 9.1 mg/dL (8.4-10.2); Potassium 3.6 mmol/L (3.5-5.1)
[2018-10-02] MEDS ORDERED: DEXTROSE 5% IN WATER 100 ML with AMIODARONE 150 MG IV ONE (23:00)
--- NOTE | 2018-10-02 23:02 | XR ---
EXAMINATION TYPE: XR abdomen 1V DATE OF EXAM: 10/02/2018 COMPARISON: NONE HISTORY: Abdominal pain TECHNIQUE: 2 view supine FINDINGS: There is no sign of intestinal obstruction or pneumoperitoneum. There are numerous amorphou s calcifications over the right upper quadrant. There is no evidence of a mass. Fecal pattern is norm al. IMPRESSION: Nonacute abdomen. Numerous calcifications over the upper abdomen and right upper quadrant consistent with chronic pancreatitis is evident on the CT scan of 03/31/2018.
[2018-10-02] MEDS ORDERED: SODIUM CHLORIDE 0.9% 2,000 ML IV ONE (23:07)
[2018-10-02] MEDS ORDERED: VANCOMYCIN IV PER PHARMACY 1 EACH MISC MISCELLANE PRN (23:09)
[2018-10-02] MEDS: NOREPINEPHRINE 4 MG in SODIUM CHLORIDE 0.9% 250 ML IV SCH (23:35)
[2018-10-02 23:36] LABS: Glucose,Whole Blood 161 mg/dL (75-99)
[2018-10-02] MEDS ORDERED: Potassium Replacement Protocol 1 EACH MISC MISCELLANE PRN (23:42)
[2018-10-02 23:52] LABS: Glucose,Whole Blood 168 mg/dL (75-99)
[2018-10-03] MEDS: AMIODARONE 450 MG in DEXTROSE 5% IN WATER 250 ML IV SCH ×8 (00:20→20:33)
[2018-10-03] MEDS: MAGNESIUM OXIDE 400 MG TAB PO SCH ×3 (00:36→20:29)
[2018-10-03] MEDS: metFORMIN 500 MG TAB PO SCH ×2 (00:36→10:12)
[2018-10-03] MEDS: GABAPENTIN 100 MG CAP PO SCH ×4 (00:37→21:35)
[2018-10-03] MEDS: PENTOXIFYLLINE 400 MG TABLET.ER PO SCH ×2 (00:37→10:11)
[2018-10-03] MEDS: SODIUM CHLORIDE 0.9% 1,000 ML IV SCH ×3 (00:38→17:26)
[2018-10-03 00:39] LABS: Appearance,Urine Clear (Clear); Bilirubin,Urine Negative (Negative); Blood,Urine Negative (Negative); Color,Urine Light Yellow; Glucose,Urine (UA) Negative (Negative); Ketones,Urine Negative (Negative); Leukocyte Esterase,Urine Negative (Negative); Nitrite,Urine Negative (Negative); PH, Urine 5.5 (5.0-8.0); Protein,Urine Negative (Negative); Specific Gravity,Urine 1.006 (1.001-1.035); Urobilinogen,Urine <2.0 mg/dL (<2.0)
[2018-10-03] MEDS: POTASSIUM CHLORIDE 10 MEQ in WATER FOR INJECTION 1 100ML.BAG IVPB SCH ×2 (00:42→01:54)
--- NOTE | 2018-10-03 01:16 | XR ---
EXAMINATION TYPE: XR chest 1V portable DATE OF EXAM: 10/03/2018 COMPARISON: 09/29/2018 HISTORY: Check tube placement TECHNIQUE: Single frontal view of the chest is obtained. FINDINGS: There is a nasogastric tube. The tip of the tube is obscured to some extent by the pacemak er leads. I think the tube is at least at the gastroesophageal junction. Tip of the tube is not defin itely seen within the stomach. There is some atelectasis at the lung bases. There is no heart failure. There is left axillary pacema ker with the lead tips over the right ventricle. There is right humeral neck fracture noted with more than 1 cm displacement. IMPRESSION: Nasogastric tube is not optimally seen but appears to be not in the stomach but at the g astroesophageal junction. Upright abdomen x-ray including the diaphragms would be definitive.
[2018-10-03] MEDS: INSULIN DETEMIR 100 UNIT/ML 10 ML VIAL SQ SCH ×2 (01:57→20:29)
[2018-10-03] MEDS ORDERED: VANCOMYCIN 1,250 MG in SODIUM CHLORIDE 0.9% 250 ML IVPB SCH (02:00)
[2018-10-03] MEDS: DICLOFENAC SODIUM GEL 100 GM TUBE TOPICAL SCH ×5 (02:00→21:35)
[2018-10-03] MEDS: ENOXAPARIN 40 MG/0.4 ML SYRINGE SQ SCH ×2 (02:01→22:32)
[2018-10-03] MEDS: PIPERACILLIN-TAZOBACTAM 3.375 GM in SODIUM CHLORIDE 0.9% 100 ML IVPB SCH ×2 (03:17→12:43)
--- NOTE | 2018-10-03 07:48 | PN ---
PROGRESS NOTE DATE OF SERVICE: 10/02/2018 PRESENTING COMPLAINT: Tired. INTERVAL HISTORY: This patient was seen by me yesterday. Patient was admitted with AFIB with rapid ventricular rate. Patient had done better in the daytime. Towards the evening, patient's heart rate went up to about 130, 140. Patient did drop the blood pressure. I did give her a fluid bolus and the blood pressure is running about the 80s. Patient started having abdominal pain. I ordered a stat abdominal x-ray, requested surgical consult. Also requested the patient be moved to the ICU with salesperson flying squad to give consultations. REVIEW OF SYSTEMS: Done for constitutional, cardiovascular, GI, pulmonary; relevant findings as above. CURRENT MEDICATIONS: Reviewed that include Lasix, Lopressor 50 b.i.d. PHYSICAL EXAMINATION: Temperature 97.5, pulse 130, respiration 18, blood pressure down 82/46. GENERAL APPEARANCE: Lying in bed, awake. EYES: Pupils equal, conjunctivae are normal. NECK: JVD not raised. Mass not palpable. RESPIRATORY: Effort normal. LUNGS: Fair entry. CARDIOVASCULAR: Heart rate is irregular. No edema. ABDOMEN: Soft. Mild tenderness. No guarding or rigidity. Liver and spleen not palpable. PSYCHIATRY: Alert and oriented x3. Mood and affect anxious. EXTREMITIES: Right arm in a sling. INVESTIGATIONS: Earlier Accu-Cheks are noted. White count 10.1, hemoglobin 14.4, potassium 3.6, BUN 34, creatinine 1.37. ASSESSMENT: 1. Persistent atrial fibrillation with rapid ventricular rate on presentation, was better controlled in the evening. Again, the rate has gone up, causing hypotension. 2. Symptomatic hypotension, probably a contribution from severe heart rate. 3. Diabetes mellitus type 2, chronically on insulin. 4. Peripheral artery disease. 5. Coronary artery disease. 6. Hyperlipidemia. 7. Essential hypertension. 8. Primary osteoarthritis. 9. Chronic kidney disease with stress incontinence. 10.Hypertension. 11.Peripheral neuropathy. 12.Chronic wound on the ball of the left big toe, not infected, Toñito's grade 2. 13.Stage II left heel pressure ulcer, present on admission. 14.Right humeral neck fracture with chronic pain with arm sling in place. 15.Medical debility, using a walker. 16.Local bruising behind the right ear in the mastoid area. PLAN: Consultation made to General Surgery. Cardiology has been informed. Patient will be moved to the ICU, given IV fluid boluses. Prognosis is guarded. Total time spent for critical care was about 40 minutes. RITESHL / IJN: [id number] /
--- NOTE | 2018-10-03 08:00 | XR ---
EXAMINATION TYPE: XR chest 1V portable DATE OF EXAM: 10/03/2018 COMPARISON: Prior chest x-ray 10/03/2018 HISTORY: Congestive heart failure, respiratory failure TECHNIQUE: Single frontal view of the chest is obtained. FINDINGS: Intracardiac defibrillator is stable, heart is enlarged. No pneumothorax or pleural effusi on. Interstitium is increased. Old rib fractures are stable. Patchy bibasilar density again seen. NG tube is coiled within the stomach. Aorta is dense. IMPRESSION: There may be a component of pulmonary venous hypertension and interstitial edema, basila r atelectasis. Cardiomegaly. Follow-up recommended.
[2018-10-03 08:02] LABS: Calcium 8.2 mg/dL (8.4-10.2); Magnesium 2.3 mg/dL (1.6-2.3); Phosphorus 4.7 mg/dL (2.5-4.5); Potassium 4.7 mmol/L (3.5-5.1)
[2018-10-03 08:02] LABS: Glucose,Whole Blood 264 mg/dL (75-99)
[2018-10-03] MEDS: INSULIN ASPART 100 UNIT/ML 1 ML 10 ML VIAL SQ SCH ×4 (08:10→17:23)
[2018-10-03] MEDS: PANTOPRAZOLE 40 MG TABLET PO SCH (08:10)
--- NOTE | 2018-10-03 08:59 | P.PN ---
Subjective Progress Note Date: 10/03/18 Principal diagnosis: Atrial fibrillation with rapid ventricular response This is a pleasant 83-year-old female patient with a past medical history significant for coronary artery disease, chronic atrial fibrillation, not on any oral anticoagulation, as well as multiple comorbid conditions, was admitted to the hospital was atrial fibrillation with rapid ventricular response. Please note that the patient fell a few weeks ago and fractured her left arm. She underwent an echocardiogram which revealed impaired LV function was EF around 35% with moderate MR. There was also mild aortic stenosis. The patient was transferred to the intensive care unit last night. During a bowel movement last night, she felt dizzy and lightheaded and the blood pressure drop and subsequently she went into A. fib with RVR. Because of that she was transferred to the intensive care unit. On follow-up with her today, October [id number], she is in the intensive care unit. She is in atrial fibrillation with heart rate around 90 beats per minutes. She is on amiodarone IV and she is on metoprolol by mouth. She is not on any anticoagulation because is known history of falling and bleeding. Beside that she is requiring small dose of Levophed which is in process to be weaned off. A chest x-ray was performed and showed a component of mild pulmonary edema. Currently the patient is on Lasix by mouth. I will obtain a BNP. We'll continue following up with her Objective - Vital Signs Vital signs: Vital Signs Temp 98.5 F 10/03/18 04:00 Pulse 96 10/03/18 07:45 Resp 9 L 10/03/18 07:45 BP 101/56 10/03/18 07:45 Pulse Ox 93 L 10/03/18 07:45 Intake & Output 10/02/18 10/03/18 10/03/18 18:59 06:59 18:59 Intake Total 580 3236.779 125.315 Output Total 0 380 40 Balance 580 2856.779 85.315 Weight 74.1 kg Intake: IV 2950 100 Piperacillin-Tazobactam 3 100 .375 gm In Sodium Chloride 0.9% 100 ml @ 25 mls/hr IVPB Q12H [facility] Rx# :[id number] Potassium Chloride 10 meq 200 In Water For Injection 1 100ml.bag @ 100 mls/hr IVPB Q1H [facility] Rx#: [id number] Sodium Chloride 0.9% 1, 400 100 000 ml @ 100 mls/hr IV . Q10H [facility] Rx#:[id number] Sodium Chloride 0.9% 2, 2000 000 ml @ 999 mls/hr IV . Q2H1M [facility] Rx#:[id number] Vancomycin 1,250 mg In 250 Sodium Chloride 0.9% 250 ml @ 125 mls/hr IVPB Q48H [facility] Rx#:[id number] Intake, IV Titration 286.779 25.315 Amount Amiodarone 450 mg In 219.841 25.315 Dextrose 5% in Water 250 ml @ 1 MG/MIN 34.53 mls/ hr IV .Q7H31M [facility] Rx#: [id number] Norepinephrine 4 mg In 66.938 Sodium Chloride 0.9% 250 ml @ Titrate IV .Q0M [facility] Rx#:[id number] Oral 580 Output: Urine 0 380 40 Other: Voiding Method Bedside Commode # Bowel Movements 0 0 - Constitutional General appearance: Present: no acute distress - Respiratory Respiratory: bilateral: diminished - Cardiovascular Rhythm: irregularly irregular Heart sounds: normal: S1, S2 - Labs CBC & Chem 7: 10/02/18 22:30 10/03/18 07:33 Labs: Abnormal Lab Results - Last 24 Hours (Table) 10/02/18 10/02/18 10/02/18 Range/Units 11:38 16:31 20:42 RDW (11.5-15.5) % Neutrophils # (1.3-7.7) k/uL Sodium (137-145) mmol/L Chloride (98-107) mmol/L Carbon Dioxide (22-30) mmol/L BUN (7-17) mg/dL Creatinine (0.52-1.04) mg/dL Glucose (74-99) mg/dL POC Glucose (mg/dL) 138 H 125 H 109 H (75-99) mg/dL Plasma Lactic Acid Lawrence (0.7-2.0) mmol/L Calcium (8.4-10.2) mg/dL Phosphorus (2.5-4.5) mg/dL 10/02/18 10/02/18 10/02/18 Range/Units 21:36 22:30 22:30 RDW 16.0 H (11.5-15.5) % Neutrophils # 7.9 H (1.3-7.7) k/uL Sodium 136 L (137-145) mmol/L Chloride 93 L (98-107) mmol/L Carbon Dioxide 32 H (22-30) mmol/L BUN 34 H (7-17) mg/dL Creatinine 1.37 H (0.52-1.04) mg/dL Glucose 156 H (74-99) mg/dL POC Glucose (mg/dL) 141 H (75-99) mg/dL Plasma Lactic Acid Lawrence (0.7-2.0) mmol/L Calcium (8.4-10.2) mg/dL Phosphorus (2.5-4.5) mg/dL 10/02/18 10/02/18 10/02/18 Range/Units 22:30 23:24 23:40 RDW (11.5-15.5) % Neutrophils # (1.3-7.7) k/uL Sodium (137-145) mmol/L Chloride (98-107) mmol/L Carbon Dioxide (22-30) mmol/L BUN (7-17) mg/dL Creatinine (0.52-1.04) mg/dL Glucose (74-99) mg/dL POC Glucose (mg/dL) 161 H 168 H (75-99) mg/dL Plasma Lactic Acid Lawrence 3.6 H* (0.7-2.0) mmol/L Calcium (8.4-10.2) mg/dL Phosphorus (2.5-4.5) mg/dL 10/03/18 10/03/18 10/03/18 Range/Units 02:39 07:33 07:49 RDW (11.5-15.5) % Neutrophils # (1.3-7.7) k/uL Sodium 135 L (137-145) mmol/L Chloride (98-107) mmol/L Carbon Dioxide (22-30) mmol/L BUN 39 H (7-17) mg/dL Creatinine 1.18 H (0.52-1.04) mg/dL Glucose 251 H (74-99) mg/dL POC Glucose (mg/dL) 264 H (75-99) mg/dL Plasma Lactic Acid Lawrence 3.1 H* (0.7-2.0) mmol/L Calcium 8.2 L (8.4-10.2) mg/dL Phosphorus 4.7 H (2.5-4.5) mg/dL Assessment and Plan Assessment: Assessment #1 atrial fibrillation with rapid ventricular response #2 known chronic persistent atrial fibrillation #3 coronary artery disease #4 ischemic cardiomyopathy #5 multiple comorbid conditions Plan #1 continue amiodarone IV. Switch her to amiodarone by mouth later on #2 continue the current dose of metoprolol unless you are and able to wean her from the levophed #3 try to wean the patient from the levophed #4 continue holding any kind of anticoagulation #5 continue Lasix by mouth #6 check the BMP
[2018-10-03 09:56] LABS: Anisocytosis Slight; HCT 40.2 % (34.0-46.0); HGB 12.7 gm/dL (11.4-16.0); MCH 29.9 pg (25.0-35.0); MCHC 31.7 g/dL (31.0-37.0); MCV 94.2 fL (80.0-100.0); Mean Platelet Volume 7.2; Platelet Count 238 k/uL (150-450); RBC 4.27 m/uL (3.80-5.40); RDW 16.4 % (11.5-15.5); WBC 20.6 k/uL (3.8-10.6)
--- NOTE | 2018-10-03 09:56 | P.PN ---
Progress Note - Text Progress Note Date: 10/03/18 Patient seen and evaluated with Aislinn Williamson, nurse practitioner. Please see full dictated report. Discussion with daughter at bedside confirms previous cholecystectomy with intrahepatic stones requiring ERCP and stone removal, within the last 5 years. X-ray reviewed consistent with chronic pancreatitis. Abdomen soft nontender. Recommend recheck of amylase lipase. Also in agreement with computed tomography scan for sepsis workup including of the chest abdomen and pelvis. Family agrees that patient is too high risk for surgical intervention. Conservative management only. Nothing by mouth advised.
[2018-10-03] MEDS: LISINOPRIL-HCTZ 20-25 MG 1 EACH TAB PO SCH (10:00)
[2018-10-03] MEDS: METOPROLOL TARTRATE 50 MG TAB PO SCH ×2 (10:02→20:19)
[2018-10-03] MEDS: OXYBUTYNIN 10 MG TAB.ER.24 PO SCH (10:11)
[2018-10-03] MEDS: PANTOPRAZOLE 40 MG/10 ML VIAL IVP SCH (10:23)
[2018-10-03] MEDS: FUROSEMIDE 40 MG TAB PO SCH ×2 (10:24→17:01)
[2018-10-03] MEDS: THIAMINE 100 MG TAB PO SCH (10:24)
[2018-10-03] MEDS: ASPIRIN 81 MG PO SCH (10:24)
[2018-10-03 10:51] LABS: Amylase <30 U/L (30-110); Lipase 14 U/L (23-300)
--- NOTE | 2018-10-03 12:06 | P.CNPUL ---
History of Present Illness Consult date: 10/03/18 Requesting physician: Gabino Rogers Reason for consult: other (Hypertension, A. fib/RVR, possible sepsis.) Chief complaint: Palpitations, hypertension, and possible sepsis. History of present illness: This is an 83-year-old white female with history of multiple medical problems including coronary artery disease, hypertension, osteoarthritis, urinary incontinence, peripheral neuropathy, patient had a recent right humeral neck fracture, and the recommendation was to keep right arm in a sling. Patient has been frequently admitted recently with mostly episodes of atrial fibrillation and RVR, however as soon as the patient goes back to halfway, she develops tachycardia again, and requires readmission to the hospital. According to the daughter this already happened 3 times. This time the patient was readmitted on 09/30/2018, and she was complaining of palpitations, patient was placed on Cardizem drip, and she was later switched to oral treatment. Last night the patient developed multiple complaints including including palpitations, low blood pressure, and she was noted to have elevated lactic acid, she was also complaining of left upper quadrant pain. Apparently the patient has not had a bowel movement in the last 8 days. Her abdomen was distended when I was notified about the patient. I did recommend transfer the patient to the ICU, and I recommended a nasogastric tube to be placed, recommended surgical consultation, and CT of the abdomen once the patient's blood pressure is stabilized. Patient was sent to the ICU, she remains on 3 g of norepinephrine at present, she did receive fluid boluses, didn't receive broad-spectrum antibiotics, and surgical consultation was initiated. Upon my evaluation today , the patient is in atrial fibrillation but rate seems to be controlled. Her blood pressure is marginal remains on 3 g of norepinephrine. Patient is having less and less abdominal pain. She does have minimal tenderness in the left upper quadrant, and she is known to have history of chronic pancreatitis. Amylase and lipase levels are pending. Patient was already seen by general surgery on consultation, and CT of the abdomen and pelvis is pending. Pulmonary -hudson the patient is feeling better, denies any cough no wheezing no shortness of breath, and no chest pain. Review of Systems 14 point review of systems were obtained, please refer to pertinent positives in HPI, otherwise remaining systems are negative. Past Medical History Past Medical History: Atrial Fibrillation, Coronary Artery Disease (CAD), Cancer , Diabetes Mellitus, GERD/Reflux, Hearing Disorder / Deafness, Hyperlipidemia, Hypertension, Osteoarthritis (OA), Skin Disorder Additional Past Medical History / Comment(s): diverticultis, rt arm fx, cervical cancer, pancreatitis, right foot infection, gall stones and removal, FALL/fx coccyx 08-29-17, CONSTIPATION, PAD, RT FOOT (great toe) WOUND HAS BEEN GOING TO [facility] , PAST [place]STONES,lt. foot wound, yeast in abdominal folds History of Any Multi-Drug Resistant Organisms: None Reported Date of last positivie culture/infection: None MDRO Source:: None Past Surgical History: AICD, Bowel Resection, Cholecystectomy, Heart Catheterization, Hysterectomy, Orthopedic Surgery Additional Past Surgical History / Comment(s): Internal defibulator 09-15-17, LT ROTATOR CUFF X2, BUNIONECTOMY JACQUELINE,, JACQUELINE BREAST LUMPECTOMIES-BOTH NEG,, X2 ERCP, RT HAND SX PINS PLACED-BUT SINCE REMOVED, CATARACTS. 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 also has a walker, glucometer and monitor for the aicd. Smoking Status: Former smoker Past Alcohol Use History: None Reported Additional Past Alcohol Use History / Comment(s): Smoked sporadically from 1964 till 1967 Past Drug Use History: None Reported - Past Family History Mother Family Medical History: No Reported History Additional Family Medical History / Comment(s): HEART DISEASE Father Family Medical History: Coronary Artery Disease (CAD), Diabetes Mellitus Medications and Allergies Home Medications Medication Instructions Recorded Confirmed Type Pentoxifylline 400 mg PO TID 12/13/16 09/29/18 History Sertraline HCl [Zoloft] 25 mg PO DAILY 12/13/16 09/29/18 History Vit C/E/Zn/Coppr/Lutein/Zeaxan 1 cap PO DAILY 11/10/17 09/29/18 History [Preservision Areds 2 Softgel] metFORMIN HCL 1,000 mg PO BID 11/10/17 09/29/18 History Acetaminophen Tab [Tylenol] 650 mg PO Q6HR tab 03/24/18 09/29/18 Rx Aspirin 81 mg PO DAILY #0 chew 04/03/18 09/29/18 Rx Furosemide [Lasix] 40 mg PO BID@0900,1600 tab 04/03/18 09/29/18 Rx Diltiazem Oral [Cardizem*] 30 mg PO ACHS 09/25/18 09/29/18 History Ergocalciferol [Vitamin D2 50,000 unit PO Q7D 09/25/18 09/29/18 History (DRISDOL)] Lisinopril-Hctz 20-25 mg 1 tab PO DAILY 09/25/18 09/29/18 History [Zestoretic 20-25] Magnesium Oxide [Mag-Ox] 400 mg PO BID 09/25/18 09/29/18 History Omeprazole 40 mg PO DAILY 09/25/18 09/29/18 History Sennosides/Docusate Sodium 1 tab PO BID PRN 09/25/18 09/29/18 History [Senna-S Laxative Tablet] Thiamine [Vitamin B-1] 100 mg PO DAILY 09/25/18 09/29/18 History Tolterodine Tartrate [Detrol LA] 4 mg PO DAILY 09/25/18 09/29/18 History Trospium Chloride 20 mg PO HS 09/25/18 09/29/18 History Vitamin B Complex 1 cap PO DAILY 09/25/18 09/29/18 History Collagenase [Santyl] 1 applic TOPICAL Q24H applic 09/28/18 09/29/18 Rx Gabapentin [Neurontin] 200 mg PO TID #30 cap 09/28/18 09/29/18 Rx Heparin Sodium,Porcine [Heparin 5,000 unit SQ Q12HR vial 09/28/18 09/29/18 Rx Sodium] Insulin Aspart [NovoLOG 5 unit SQ AC-TID vial 09/28/18 09/29/18 Rx (formulary)] Insulin Detemir [Levemir] 15 unit SQ HS syr 09/28/18 09/29/18 Rx Magnesium Hydroxide [Milk of 2,400 mg PO DAILY PRN ml 09/28/18 09/29/18 Rx Magnesia Concentrate] Ondansetron [Zofran] 4 mg IVP Q6HR PRN vial 09/28/18 09/29/18 Rx traMADol HCL [Ultram] 50 mg PO Q4HR PRN 3 Days #18 tab 09/28/18 09/29/18 Rx Bisacodyl [Dulcolax] 10 mg RECTAL DAILY PRN 09/29/18 09/29/18 History Caldesene Powder 1 applic TOPICAL BID 09/29/18 09/29/18 History Insulin Aspart [NovoLOG See Protocol SQ ACHS 09/29/18 09/29/18 History (formulary)] Menthol/Zinc Oxide [Calmoseptine 1 applic TOPICAL BID 09/29/18 09/29/18 History Ointment] Na Phos,M-B/Na Phos,Di-Ba [Fleet 133 ml RECTAL DAILY PRN 09/29/18 09/29/18 History Adult] Allergies Allergy/AdvReac Type Severity Reaction Status Date / Time levofloxacin [From Levaquin] Allergy Mild Rash/Hives Verified 09/29/18 18:39 morphine Allergy Rapid Verified 09/29/18 18:39 Heart Rate Physical Exam Vitals: Vital Signs Temp Pulse Pulse Pulse Resp BP BP 10/03/18 07:45 96 9 L 101/56 10/03/18 07:30 92 18 71/51 10/03/18 07:15 88 22 94/51 10/03/18 07:00 93 31 H 107/61 10/03/18 06:45 93 20 81/61 10/03/18 06:30 100 7 L 92/60 10/03/18 06:15 95 21 103/50 10/03/18 06:00 96 18 96/45 10/03/18 05:45 97 18 86/57 10/03/18 05:30 105 H 21 77/44 10/03/18 05:15 94 16 83/47 10/03/18 05:00 109 H 18 98/70 10/03/18 04:45 89 11 L 83/44 10/03/18 04:30 91 14 73/40 10/03/18 04:15 108 H 17 97/47 10/03/18 04:00 98.5 F 108 H 15 79/50 10/03/18 03:45 98 17 116/49 10/03/18 03:30 94 16 86/66 10/03/18 03:15 97 9 L 85/75 10/03/18 03:00 101 H 17 87/58 10/03/18 02:40 87 20 87/63 10/03/18 02:20 97 15 91/51 10/03/18 02:00 101 H 16 100/51 10/03/18 01:40 92 15 105/89 10/03/18 01:20 88 10 L 122/70 10/03/18 01:00 97 16 124/86 10/03/18 00:45 90 18 119/88 10/03/18 00:40 93 17 97/71 10/03/18 00:30 92 15 84/66 10/03/18 00:20 88 10 L 82/54 10/03/18 00:15 90 16 105/60 10/03/18 00:00 97.9 F 101 H 102 H 16 86/62 82/54 10/02/18 23:45 97.9 F 101 H 15 86/62 10/02/18 23:40 112 H 16 91/50 10/02/18 23:26 121 H 16 10/02/18 21:36 85/50 10/02/18 21:32 88/50 10/02/18 21:28 120 H 93/48 10/02/18 21:25 132 H 82/50 10/02/18 21:20 133 H 82/46 10/02/18 20:00 96.2 F L 71 18 103/59 10/02/18 15:59 97.5 F L 85 18 96/52 10/02/18 12:45 97.1 F L 92 18 101/53 Pulse Ox 10/03/18 07:45 93 L 10/03/18 07:30 10/03/18 07:15 92 L 10/03/18 07:00 10/03/18 06:45 93 L 10/03/18 06:30 10/03/18 06:15 10/03/18 06:00 95 10/03/18 05:45 97 10/03/18 05:30 91 L 10/03/18 05:15 88 L 10/03/18 05:00 98 10/03/18 04:45 98 10/03/18 04:30 93 L 10/03/18 04:15 94 L 10/03/18 04:00 97 10/03/18 03:45 90 L 10/03/18 03:30 88 L 10/03/18 03:15 89 L 10/03/18 03:00 98 10/03/18 02:40 98 10/03/18 02:20 98 10/03/18 02:00 99 10/03/18 01:40 96 10/03/18 01:20 10/03/18 01:00 100 10/03/18 00:45 100 10/03/18 00:40 10/03/18 00:30 100 10/03/18 00:20 99 10/03/18 00:15 100 10/03/18 00:00 99 10/02/18 23:45 95 10/02/18 23:40 99 10/02/18 23:26 99 10/02/18 21:36 10/02/18 21:32 10/02/18 21:28 10/02/18 21:25 10/02/18 21:20 10/02/18 20:00 95 10/02/18 15:59 97 10/02/18 12:45 93 L Intake and Output 10/02/18 10/03/18 10/03/18 22:59 06:59 14:59 Intake Total 240 3236.779 567.815 Output Total 380 200 Balance 240 2856.779 367.815 Intake: IV 2950 500 Piperacillin-Tazobactam 3 100 .375 gm In Sodium Chloride 0.9% 100 ml @ 25 mls/hr IVPB Q12H [facility] Rx# :[id number] Potassium Chloride 10 meq 200 In Water For Injection 1 100ml.bag @ 100 mls/hr IVPB Q1H [facility] Rx#: [id number] Sodium Chloride 0.9% 1, 400 500 000 ml @ 100 mls/hr IV . Q10H [facility] Rx#:[id number] Sodium Chloride 0.9% 2, 2000 000 ml @ 999 mls/hr IV . Q2H1M [facility] Rx#:[id number] Vancomycin 1,250 mg In 250 Sodium Chloride 0.9% 250 ml @ 125 mls/hr IVPB Q48H [facility] Rx#:[id number] Intake, IV Titration 286.779 67.815 Amount Amiodarone 450 mg In 219.841 25.315 Dextrose 5% in Water 250 ml @ 1 MG/MIN 34.53 mls/ hr IV .Q7H31M [facility] Rx#: [id number] Norepinephrine 4 mg In 66.938 42.5 Sodium Chloride 0.9% 250 ml @ Titrate IV .Q0M [facility] Rx#:[id number] Oral 240 Output: Urine 380 200 Other: Voiding Method Bedside Commode # Bowel Movements 0 0 Weight 74.1 kg Physical Exam: Revealed an 83-year-old female in no distress, poor historian. Head: Atraumatic, normocephalic. HEENT:[Neck is supple.] [No neck masses.] [No thyromegaly.] [No JVD.] Chest: [Diminished breath sounds at the bases no crackles or rhonchi or wheezes. Cardiac Exam: Irregular irregular rhythm. [Normal S1 and S2, no S3 gallop, 2/6 systolic murmur thought the precordium..] Abdomen: [Soft, slightly tender left upper quadrant,, no megaly, no rebound, no guarding, diminished bowel sounds. Extremities: [No clubbing, plus bipedal edema, no cyanosis.] Right upper extremity is in a sling. Limitation in range of motion of right upper extremity. Neurological Exam: Patient is lethargic, arousable, followed simple instructions , seems to be a bit confused. Skin: No rashes. Results - Laboratory Findings CBC and BMP: 10/03/18 07:33 10/03/18 07:33 Abnormal lab findings: Abnormal Labs 09/29/18 09/29/18 09/30/18 19:43 22:14 06:03 WBC RDW Neutrophils # Sodium Chloride Carbon Dioxide BUN Creatinine Glucose POC Glucose (mg/dL) 249 H 271 H 220 H Hemoglobin A1c Plasma Lactic Acid Lawrence Calcium Phosphorus Amylase Lipase 09/30/18 09/30/18 09/30/18 06:46 11:50 16:46 WBC RDW Neutrophils # Sodium Chloride Carbon Dioxide BUN Creatinine Glucose POC Glucose (mg/dL) 174 H 134 H Hemoglobin A1c 8.3 H Plasma Lactic Acid Lawrence Calcium Phosphorus Amylase Lipase 09/30/18 10/01/18 10/01/18 21:36 05:48 11:59 WBC RDW Neutrophils # Sodium Chloride Carbon Dioxide BUN Creatinine Glucose POC Glucose (mg/dL) 131 H 107 H 131 H Hemoglobin A1c Plasma Lactic Acid Lawrence Calcium Phosphorus Amylase Lipase 01/10/01/18 10/02/18 16:53 21:08 05:47 WBC RDW Neutrophils # Sodium Chloride Carbon Dioxide BUN Creatinine Glucose POC Glucose (mg/dL) 108 H 118 H 161 H Hemoglobin A1c Plasma Lactic Acid Lawrence Calcium Phosphorus Amylase Lipase 10/02/18 10/02/18 10/02/18 11:38 16:31 20:42 WBC RDW Neutrophils # Sodium Chloride Carbon Dioxide BUN Creatinine Glucose POC Glucose (mg/dL) 138 H 125 H 109 H Hemoglobin A1c Plasma Lactic Acid Lawrence Calcium Phosphorus Amylase Lipase 10/02/18 10/02/18 10/02/18 21:36 22:30 22:30 WBC RDW 16.0 H Neutrophils # 7.9 H Sodium 136 L Chloride 93 L Carbon Dioxide 32 H BUN 34 H Creatinine 1.37 H Glucose 156 H POC Glucose (mg/dL) 141 H Hemoglobin A1c Plasma Lactic Acid Lawrence Calcium Phosphorus Amylase Lipase 10/02/18 10/02/18 10/02/18 22:30 23:24 23:40 WBC RDW Neutrophils # Sodium Chloride Carbon Dioxide BUN Creatinine Glucose POC Glucose (mg/dL) 161 H 168 H Hemoglobin A1c Plasma Lactic Acid Lawrence 3.6 H* Calcium Phosphorus Amylase Lipase 10/03/18 10/03/18 10/03/18 02:39 07:33 07:33 WBC 20.6 H RDW 16.4 H Neutrophils # Sodium 135 L Chloride Carbon Dioxide BUN 39 H Creatinine 1.18 H Glucose 251 H POC Glucose (mg/dL) Hemoglobin A1c Plasma Lactic Acid Lawrence 3.1 H* Calcium 8.2 L Phosphorus 4.7 H Amylase Lipase 10/03/18 10/03/18 07:33 07:49 WBC RDW Neutrophils # Sodium Chloride Carbon Dioxide BUN Creatinine Glucose POC Glucose (mg/dL) 264 H Hemoglobin A1c Plasma Lactic Acid Lawrence Calcium Phosphorus Amylase <30 L Lipase 14 L - Diagnostic Findings Chest x-ray: image reviewed (Mild interstitial edema is suspected, minimal atelectasis at the bases noted also.) Assessment and Plan Assessment: Impression: 1 hypotension, multifactorial, I believe it is mostly secondary to atrial fibrillation with RVR, however the possibility of sepsis is not entirely ruled out. The patient sources of sepsis would be abdomen, or pulmonary although this is mostly in the differential diagnoses, at this point I believe the hypertension is mostly cardiac in nature related to atrial fibrillation with RVR. 2 abdominal pain, workup is in progress, could be related to chronic pancreatitis, strongly doubt abdominal sepsis. 3 acute interstitial edema mostly iatrogenic since the patient was given fluid boluses yesterday prior to transfer to the ICU. 4 known history of chronic atrial fibrillation, patient has contraindication to anticoagulation therapy. 5 history of ischemic cardiomyopathy and LV dysfunction. History of underlying coronary artery disease. 6 recent history of right humeral neck fracture. Treatment is conservative measures mostly at this point. Recommendation: Patient will remain in the ICU today, will titrate the levo fed down until discontinued. We will cautiously diurese the patient now that her blood pressures seems to be improving. We'll cut down IV fluids, continue empiric broad-spectrum antibiotics until cultures are available until CT of the abdomen and pelvis is available. Repeat lactic acid level is showing improvement. Renal functioning is also improving. We'll continue to follow Time with Patient: Greater than 30
--- NOTE | 2018-10-03 12:37 | CT ---
EXAMINATION TYPE: CT abdomen pelvis wo con DATE OF EXAM: 10/03/2018 COMPARISON: None HISTORY: Abdominal pain CT DLP: 915 mGycm Automated exposure control for dose reduction was used. TECHNIQUE: Helical acquisition of images was performed from the lung bases through the pelvis. FINDINGS: LUNG BASES: Small bilateral pleural effusions are seen and there is a dense coronary artery calcifica tion with cardiomegaly and basilar consolidation. Cardiac leads results in artifact there appears to be in NG tube coursing into the abdomen. LIVER/GB: No significant abnormality is appreciated. PANCREAS: No significant abnormality is seen. SPLEEN: No significant abnormality is seen. ADRENALS: No significant abnormality is seen. KIDNEYS: No obvious hydronephrosis or nephrolithiasis. Hyperdense lesion involving both kidneys are i ndeterminate by noncontrast technique. Although hemorrhagic cyst is in the differential. Malignant ne oplasm not excluded. Larger 4 cm simple appearing left renal cyst. ADENOPATHY: None visualized. OSSEOUS STRUCTURES: Hypertrophic and degenerative changes of vertebral column. Question chronic rib deformities.. BOWEL: Wall thickening left colon and sigmoid colon and mild induration of the pericolonic fat withi n the left pelvis correlate for a mild colitis or diverticulitis. OTHER: Large [place] right inguinal hernia noted. Bowel gas pattern nonspecific. There does appear to be extensive vascular calcifications. Bladder is decompressed containing a Saldivar catheter and air. IMPRESSION: 1. Wall thickening with induration of the pericolonic fat within the left pelvis correlate for a coli tis or mild diverticulitis. 2. Wide mouth left-sided abdominal wall hernia laterally to the right. 3. Dense coronary artery calcification. 4. Small bilateral effusions and basilar infiltrate. 5. Indeterminate renal lesions correlate with ultrasound. See above.
[2018-10-03] MEDS: MENTHOL-ZINC OXIDE OINT 113 GM TUBE TOPICAL SCH ×2 (12:44→20:33)
[2018-10-03] MEDS: SERTRALINE 25 MG TAB PO SCH (12:50)
[2018-10-03 12:53] LABS: Glucose,Whole Blood 193 mg/dL (75-99)
--- NOTE | 2018-10-03 14:54 | P.GSCN ---
<Aislinn Williamson A - Last Filed: 10/03/18 14:52> History of Present Illness Consult date: 10/03/18 Reason for Consult: abdominal pain Requesting physician: Gabino Rogers History of present illness: CHIEF COMPLAINT: Abdominal pain HISTORY OF PRESENT ILLNESS: 83-year-old female who was admitted to the hospital due to atrial fibrillation with RVR. General surgery was consulted due to abdominal pain. Patient is currently in the ICU. She is lethargic and unable to provide thorough history. HPI is obtained from nursing staff and daughter at bedside. Apparently, the patient has not had a bowel movement in over a week. She was using the bedside commode last night and did have a bowel movement. However, she vasovagaled and A-team was called. She was transferred to the ICU for closer monitoring. NG tube was inserted. Approximately 400cc of light brown drainage. Patients daughter reports history of cholecystectomy. She reports last year the patient developed pancreatitis and was found to have stones. She required ERCP with stone retrieval and stent placement. Discussion was held with daughter regarding patient condition and comorbidities. Patients daughter agrees that patient is too high risk for surgical intervention. PAST MEDICAL HISTORY: See list. PAST SURGICAL HISTORY: See list. MEDICATIONS: See list. ALLERGIES: See list. SOCIAL HISTORY: No illicit drug use. REVIEW OF SYSTEMS: Unable to really obtain due to lethargy PHYSICAL EXAM: VITAL SIGNS: Currently stable-on vasopressors. GENERAL: Well-developed in no acute distress-lethargic. HEENT: NG tube intact to LIS. No sclera icterus. Extraocular movements grossly intact. Moist buccal mucosa. Head is atraumatic, normocephalic. No nasal drainage. NECK: Supple without lymphadenopathy. CHEST: Non-labored respirations and equal bilateral excursions. CARDIOVASCULAR: Irregular rhythm. Palpable 2+ radial pulses. ABDOMEN: Soft. Nondistended. No pain or tenderness noted upon palpation of all 4 quadrants. NG tube intact with light brown drainage. MUSCULOSKELETAL: No clubbing, cyanosis or edema. NEUROLOGIC: No focal or lateralizing signs. Cranial nerves II through XII grossly intact. PSYCH: Lethargic. SKIN: Well perfused. Good skin turgor. IMAGING: Per radiologist dictation: 1. X-ray abdomen: Nonacute abdomen. Numerous calcifications over the upper abdomen and right upper quadrant consistent with chronic pancreatitis 2. CT abdomen/pelvis: Wall thickening with induration of the pericolonic fat within the left pelvis correlate for colitis or mild diverticulitis. Wide mouth left-sided abdominal wall hernia. Small bilateral effusions and bilateral infiltrates. ASSESSMENT: 1. Abdominal pain, patient reported no bowel movement for 8 days, +BM yesterday , abdominal pain seems to be resolving 2. Wall thickening with induration of the pericolonic fat within the left pelvis correlate for colitis or mild diverticulitis per CT 3. History of chronic pancreatitis 4. History of cholecystectomy, many years ago per daughter 5. History of intrahepatic stones, requiring ERCP with stone retrieval and stent placement, last year per daughter 6. Hypotension, with possible sepsis 7. Afib with RVR PLAN: 1. Recommend CT scan which has been completed 2. Check amylase and lipase. If elevated, will consult GI 3. Conservative management. No surgical intervention advised 4. NPO. Bowel rest 5. Continue NG tube Nurse practitioner note has been reviewed by physician. Signing provider agrees with the documented findings, assessment, and plan of care. Past Medical History Past Medical History: Atrial Fibrillation, Coronary Artery Disease (CAD), Cancer , Diabetes Mellitus, GERD/Reflux, Hearing Disorder / Deafness, Hyperlipidemia, Hypertension, Osteoarthritis (OA), Skin Disorder Additional Past Medical History / Comment(s): diverticultis, rt arm fx, cervical cancer, pancreatitis, right foot infection, gall stones and removal, FALL/fx coccyx 08-29-17, CONSTIPATION, PAD, RT FOOT (great toe) WOUND HAS BEEN GOING TO THE [facility] , PAST GALLSTONES,lt. foot wound, yeast in abdominal folds History of Any Multi-Drug Resistant Organisms: None Reported Year Discovered:: None MDRO Source:: None Past Surgical History: AICD, Bowel Resection, Cholecystectomy, Heart Catheterization, Hysterectomy, Orthopedic Surgery Additional Past Surgical History / Comment(s): Internal defibulator 09-15-17, LT ROTATOR CUFF X2, BUNIONECTOMY JACQUELINE,, JACQUELINE BREAST LUMPECTOMIES-BOTH NEG,, X2 ERCP, RT HAND SX PINS PLACED-BUT SINCE REMOVED, CATARACTS. 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 also has a walker, glucometer and monitor for the aicd. Smoking Status: Former smoker Past Alcohol Use History: None Reported Additional Past Alcohol Use History / Comment(s): Smoked sporadically from 1964 till 1967 Past Drug Use History: None Reported - Past Family History Mother Family Medical History: No Reported History Additional Family Medical History / Comment(s): HEART DISEASE Father Family Medical History: Coronary Artery Disease (CAD), Diabetes Mellitus Medications and Allergies Home Medications Medication Instructions Recorded Confirmed Type Pentoxifylline 400 mg PO TID 12/13/16 09/29/18 History Sertraline HCl [Zoloft] 25 mg PO DAILY 12/13/16 09/29/18 History Vit C/E/Zn/Coppr/Lutein/Zeaxan 1 cap PO DAILY 11/10/17 09/29/18 History [Preservision Areds 2 Softgel] metFORMIN HCL 1,000 mg PO BID 11/10/17 09/29/18 History Acetaminophen Tab [Tylenol] 650 mg PO Q6HR tab 03/24/18 09/29/18 Rx Aspirin 81 mg PO DAILY #0 chew 04/03/18 09/29/18 Rx Furosemide [Lasix] 40 mg PO BID@0900,1600 tab 04/03/18 09/29/18 Rx Diltiazem Oral [Cardizem*] 30 mg PO ACHS 09/25/18 09/29/18 History Ergocalciferol [Vitamin D2 50,000 unit PO Q7D 09/25/18 09/29/18 History (DRISDOL)] Lisinopril-Hctz 20-25 mg 1 tab PO DAILY 09/25/18 09/29/18 History [Zestoretic 20-25] Magnesium Oxide [Mag-Ox] 400 mg PO BID 09/25/18 09/29/18 History Omeprazole 40 mg PO DAILY 09/25/18 09/29/18 History Sennosides/Docusate Sodium 1 tab PO BID PRN 09/25/18 09/29/18 History [Senna-S Laxative Tablet] Thiamine [Vitamin B-1] 100 mg PO DAILY 09/25/18 09/29/18 History Tolterodine Tartrate [Detrol LA] 4 mg PO DAILY 09/25/18 09/29/18 History Trospium Chloride 20 mg PO HS 09/25/18 09/29/18 History Vitamin B Complex 1 cap PO DAILY 09/25/18 09/29/18 History Collagenase [Santyl] 1 applic TOPICAL Q24H applic 09/28/18 09/29/18 Rx Gabapentin [Neurontin] 200 mg PO TID #30 cap 09/28/18 09/29/18 Rx Heparin Sodium,Porcine [Heparin 5,000 unit SQ Q12HR vial 09/28/18 09/29/18 Rx Sodium] Insulin Aspart [NovoLOG 5 unit SQ AC-TID vial 09/28/18 09/29/18 Rx (formulary)] Insulin Detemir [Levemir] 15 unit SQ HS syr 09/28/18 09/29/18 Rx Magnesium Hydroxide [Milk of 2,400 mg PO DAILY PRN ml 09/28/18 09/29/18 Rx Magnesia Concentrate] Ondansetron [Zofran] 4 mg IVP Q6HR PRN vial 09/28/18 09/29/18 Rx traMADol HCL [Ultram] 50 mg PO Q4HR PRN 3 Days #18 tab 09/28/18 09/29/18 Rx Bisacodyl [Dulcolax] 10 mg RECTAL DAILY PRN 09/29/18 09/29/18 History Caldesene Powder 1 applic TOPICAL BID 09/29/18 09/29/18 History Insulin Aspart [NovoLOG See Protocol SQ ACHS 09/29/18 09/29/18 History (formulary)] Menthol/Zinc Oxide [Calmoseptine 1 applic TOPICAL BID 09/29/18 09/29/18 History Ointment] Na Phos,M-B/Na Phos,Di-Ba [Fleet 133 ml RECTAL DAILY PRN 09/29/18 09/29/18 History Adult] Allergies Allergy/AdvReac Type Severity Reaction Status Date / Time levofloxacin [From Levaquin] Allergy Mild Rash/Hives Verified 09/29/18 18:39 morphine Allergy Rapid Verified 09/29/18 18:39 Heart Rate Surgical - Exam Vital Signs Temp Pulse Resp BP Pulse Ox 98.1 F 126 H 20 139/86 98 09/29/18 18:15 09/29/18 18:15 09/29/18 18:15 09/29/18 18:15 09/29/18 18:15 Results - Labs 10/03/18 07:33 10/03/18 07:33 Abnormal Lab Results - Last 24 Hours (Table) 10/02/18 10/02/18 10/02/18 Range/Units 16:31 20:42 21:36 WBC (3.8-10.6) k/uL RDW (11.5-15.5) % Neutrophils # (1.3-7.7) k/uL Sodium (137-145) mmol/L Chloride (98-107) mmol/L Carbon Dioxide (22-30) mmol/L BUN (7-17) mg/dL Creatinine (0.52-1.04) mg/dL Glucose (74-99) mg/dL POC Glucose (mg/dL) 125 H 109 H 141 H (75-99) mg/dL Plasma Lactic Acid Lawrence (0.7-2.0) mmol/L Calcium (8.4-10.2) mg/dL Phosphorus (2.5-4.5) mg/dL Amylase (30-110) U/L Lipase (23-300) U/L 10/02/18 10/02/18 10/02/18 Range/Units 22:30 22:30 22:30 WBC (3.8-10.6) k/uL RDW 16.0 H (11.5-15.5) % Neutrophils # 7.9 H (1.3-7.7) k/uL Sodium 136 L (137-145) mmol/L Chloride 93 L (98-107) mmol/L Carbon Dioxide 32 H (22-30) mmol/L BUN 34 H (7-17) mg/dL Creatinine 1.37 H (0.52-1.04) mg/dL Glucose 156 H (74-99) mg/dL POC Glucose (mg/dL) (75-99) mg/dL Plasma Lactic Acid Lawrence 3.6 H* (0.7-2.0) mmol/L Calcium (8.4-10.2) mg/dL Phosphorus (2.5-4.5) mg/dL Amylase (30-110) U/L Lipase (23-300) U/L 10/02/18 10/02/18 10/03/18 Range/Units 23:24 23:40 02:39 WBC (3.8-10.6) k/uL RDW (11.5-15.5) % Neutrophils # (1.3-7.7) k/uL Sodium (137-145) mmol/L Chloride (98-107) mmol/L Carbon Dioxide (22-30) mmol/L BUN (7-17) mg/dL Creatinine (0.52-1.04) mg/dL Glucose (74-99) mg/dL POC Glucose (mg/dL) 161 H 168 H (75-99) mg/dL Plasma Lactic Acid Lawrence 3.1 H* (0.7-2.0) mmol/L Calcium (8.4-10.2) mg/dL Phosphorus (2.5-4.5) mg/dL Amylase (30-110) U/L Lipase (23-300) U/L 10/03/18 10/03/18 10/03/18 Range/Units 07:33 07:33 07:33 WBC 20.6 H (3.8-10.6) k/uL RDW 16.4 H (11.5-15.5) % Neutrophils # (1.3-7.7) k/uL Sodium 135 L (137-145) mmol/L Chloride (98-107) mmol/L Carbon Dioxide (22-30) mmol/L BUN 39 H (7-17) mg/dL Creatinine 1.18 H (0.52-1.04) mg/dL Glucose 251 H (74-99) mg/dL POC Glucose (mg/dL) (75-99) mg/dL Plasma Lactic Acid Lawrence (0.7-2.0) mmol/L Calcium 8.2 L (8.4-10.2) mg/dL Phosphorus 4.7 H (2.5-4.5) mg/dL Amylase <30 L (30-110) U/L Lipase 14 L (23-300) U/L 10/03/18 10/03/18 Range/Units 07:49 12:38 WBC (3.8-10.6) k/uL RDW (11.5-15.5) % Neutrophils # (1.3-7.7) k/uL Sodium (137-145) mmol/L Chloride (98-107) mmol/L Carbon Dioxide (22-30) mmol/L BUN (7-17) mg/dL Creatinine (0.52-1.04) mg/dL Glucose (74-99) mg/dL POC Glucose (mg/dL) 264 H 193 H (75-99) mg/dL Plasma Lactic Acid Lawrence (0.7-2.0) mmol/L Calcium (8.4-10.2) mg/dL Phosphorus (2.5-4.5) mg/dL Amylase (30-110) U/L Lipase (23-300) U/L Microbiology - Last 24 Hours (Table) 10/03/18 01:06 Gram Stain - Preliminary Ankle - Left Wound Culture - Preliminary 10/03/18 00:25 Urine Culture - Preliminary Urine,Catheterized Diabetes panel 10/02/18 10/03/18 Range/Units 22:30 07:33 Sodium 136 L 135 L (137-145) mmol/L Potassium 3.6 4.7 (3.5-5.1) mmol/L Chloride 93 L 101 (98-107) mmol/L Carbon Dioxide 32 H 25 (22-30) mmol/L BUN 34 H 39 H (7-17) mg/dL Creatinine 1.37 H 1.18 H (0.52-1.04) mg/dL Glucose 156 H 251 H (74-99) mg/dL Calcium 9.1 8.2 L (8.4-10.2) mg/dL Calcium panel 10/02/18 10/03/18 Range/Units 22:30 07:33 Calcium 9.1 8.2 L (8.4-10.2) mg/dL Phosphorus 4.7 H (2.5-4.5) mg/dL Pituitary panel 10/02/18 10/03/18 Range/Units 22:30 07:33 Sodium 136 L 135 L (137-145) mmol/L Potassium 3.6 4.7 (3.5-5.1) mmol/L Chloride 93 L 101 (98-107) mmol/L Carbon Dioxide 32 H 25 (22-30) mmol/L BUN 34 H 39 H (7-17) mg/dL Creatinine 1.37 H 1.18 H (0.52-1.04) mg/dL Glucose 156 H 251 H (74-99) mg/dL Calcium 9.1 8.2 L (8.4-10.2) mg/dL Adrenal panel 10/02/18 10/03/18 Range/Units 22:30 07:33 Sodium 136 L 135 L (137-145) mmol/L Potassium 3.6 4.7 (3.5-5.1) mmol/L Chloride 93 L 101 (98-107) mmol/L Carbon Dioxide 32 H 25 (22-30) mmol/L BUN 34 H 39 H (7-17) mg/dL Creatinine 1.37 H 1.18 H (0.52-1.04) mg/dL Glucose 156 H 251 H (74-99) mg/dL Calcium 9.1 8.2 L (8.4-10.2) mg/dL Assessment and Plan (1) Abdominal pain Current Visit: Yes Status: Acute Code(s): R10.9 - UNSPECIFIED ABDOMINAL PAIN SNOMED Code(s): 80123321 (2) History of cholecystectomy Current Visit: Yes Status: Acute Code(s): Z90.49 - ACQUIRED ABSENCE OF OTHER SPECIFIED PARTS OF DIGESTIVE TRACT SNOMED Code(s): 344912738 (3) History of cholelithiasis Current Visit: Yes Status: Acute Code(s): Z87.19 - PERSONAL HISTORY OF OTHER DISEASES OF THE DIGESTIVE SYSTEM SNOMED Code(s): 859700265 (4) Chronic pancreatitis Current Visit: Yes Status: Acute Code(s): K86.1 - OTHER CHRONIC PANCREATITIS SNOMED Code(s): 689775106 (5) Atrial fibrillation Current Visit: Yes Status: Acute Code(s): I48.91 - UNSPECIFIED ATRIAL FIBRILLATION SNOMED Code(s): 90789595 (6) Atrial fibrillation with RVR Current Visit: No Status: Acute Code(s): I48.91 - UNSPECIFIED ATRIAL FIBRILLATION SNOMED Code(s): 936761681276920 <Ximena Hendrickson N - Last Filed: 10/03/18 15:27> Surgical - Exam Vital Signs Temp Pulse Resp BP Pulse Ox 98.1 F 126 H 20 139/86 98 09/29/18 18:15 09/29/18 18:15 09/29/18 18:15 09/29/18 18:15 09/29/18 18:15 Results - Labs 10/03/18 07:33 10/03/18 07:33 Abnormal Lab Results - Last 24 Hours (Table) 10/02/18 10/02/18 10/02/18 Range/Units 16:31 20:42 21:36 WBC (3.8-10.6) k/uL RDW (11.5-15.5) % Neutrophils # (1.3-7.7) k/uL Sodium (137-145) mmol/L Chloride (98-107) mmol/L Carbon Dioxide (22-30) mmol/L BUN (7-17) mg/dL Creatinine (0.52-1.04) mg/dL Glucose (74-99) mg/dL POC Glucose (mg/dL) 125 H 109 H 141 H (75-99) mg/dL Plasma Lactic Acid Lawrence (0.7-2.0) mmol/L Calcium (8.4-10.2) mg/dL Phosphorus (2.5-4.5) mg/dL Amylase (30-110) U/L Lipase (23-300) U/L 10/02/18 10/02/18 10/02/18 Range/Units 22:30 22:30 22:30 WBC (3.8-10.6) k/uL RDW 16.0 H (11.5-15.5) % Neutrophils # 7.9 H (1.3-7.7) k/uL Sodium 136 L (137-145) mmol/L Chloride 93 L (98-107) mmol/L Carbon Dioxide 32 H (22-30) mmol/L BUN 34 H (7-17) mg/dL Creatinine 1.37 H (0.52-1.04) mg/dL Glucose 156 H (74-99) mg/dL POC Glucose (mg/dL) (75-99) mg/dL Plasma Lactic Acid Lawrence 3.6 H* (0.7-2.0) mmol/L Calcium (8.4-10.2) mg/dL Phosphorus (2.5-4.5) mg/dL Amylase (30-110) U/L Lipase (23-300) U/L 10/02/18 10/02/18 10/03/18 Range/Units 23:24 23:40 02:39 WBC (3.8-10.6) k/uL RDW (11.5-15.5) % Neutrophils # (1.3-7.7) k/uL Sodium (137-145) mmol/L Chloride (98-107) mmol/L Carbon Dioxide (22-30) mmol/L BUN (7-17) mg/dL Creatinine (0.52-1.04) mg/dL Glucose (74-99) mg/dL POC Glucose (mg/dL) 161 H 168 H (75-99) mg/dL Plasma Lactic Acid Lawrence 3.1 H* (0.7-2.0) mmol/L Calcium (8.4-10.2) mg/dL Phosphorus (2.5-4.5) mg/dL Amylase (30-110) U/L Lipase (23-300) U/L 10/03/18 10/03/18 10/03/18 Range/Units 07:33 07:33 07:33 WBC 20.6 H (3.8-10.6) k/uL RDW 16.4 H (11.5-15.5) % Neutrophils # (1.3-7.7) k/uL Sodium 135 L (137-145) mmol/L Chloride (98-107) mmol/L Carbon Dioxide (22-30) mmol/L BUN 39 H (7-17) mg/dL Creatinine 1.18 H (0.52-1.04) mg/dL Glucose 251 H (74-99) mg/dL POC Glucose (mg/dL) (75-99) mg/dL Plasma Lactic Acid Lawrence (0.7-2.0) mmol/L Calcium 8.2 L (8.4-10.2) mg/dL Phosphorus 4.7 H (2.5-4.5) mg/dL Amylase <30 L (30-110) U/L Lipase 14 L (23-300) U/L 10/03/18 10/03/18 Range/Units 07:49 12:38 WBC (3.8-10.6) k/uL RDW (11.5-15.5) % Neutrophils # (1.3-7.7) k/uL Sodium (137-145) mmol/L Chloride (98-107) mmol/L Carbon Dioxide (22-30) mmol/L BUN (7-17) mg/dL Creatinine (0.52-1.04) mg/dL Glucose (74-99) mg/dL POC Glucose (mg/dL) 264 H 193 H (75-99) mg/dL Plasma Lactic Acid Lawrence (0.7-2.0) mmol/L Calcium (8.4-10.2) mg/dL Phosphorus (2.5-4.5) mg/dL Amylase (30-110) U/L Lipase (23-300) U/L Microbiology - Last 24 Hours (Table) 10/03/18 01:06 Gram Stain - Preliminary Ankle - Left Wound Culture - Preliminary 10/03/18 00:25 Urine Culture - Preliminary Urine,Catheterized Diabetes panel 10/02/18 10/03/18 Range/Units 22:30 07:33 Sodium 136 L 135 L (137-145) mmol/L Potassium 3.6 4.7 (3.5-5.1) mmol/L Chloride 93 L 101 (98-107) mmol/L Carbon Dioxide 32 H 25 (22-30) mmol/L BUN 34 H 39 H (7-17) mg/dL Creatinine 1.37 H 1.18 H (0.52-1.04) mg/dL Glucose 156 H 251 H (74-99) mg/dL Calcium 9.1 8.2 L (8.4-10.2) mg/dL Calcium panel 10/02/18 10/03/18 Range/Units 22:30 07:33 Calcium 9.1 8.2 L (8.4-10.2) mg/dL Phosphorus 4.7 H (2.5-4.5) mg/dL Pituitary panel 10/02/18 10/03/18 Range/Units 22:30 07:33 Sodium 136 L 135 L (137-145) mmol/L Potassium 3.6 4.7 (3.5-5.1) mmol/L Chloride 93 L 101 (98-107) mmol/L Carbon Dioxide 32 H 25 (22-30) mmol/L BUN 34 H 39 H (7-17) mg/dL Creatinine 1.37 H 1.18 H (0.52-1.04) mg/dL Glucose 156 H 251 H (74-99) mg/dL Calcium 9.1 8.2 L (8.4-10.2) mg/dL Adrenal panel 10/02/18 10/03/18 Range/Units 22:30 07:33 Sodium 136 L 135 L (137-145) mmol/L Potassium 3.6 4.7 (3.5-5.1) mmol/L Chloride 93 L 101 (98-107) mmol/L Carbon Dioxide 32 H 25 (22-30) mmol/L BUN 34 H 39 H (7-17) mg/dL Creatinine 1.37 H 1.18 H (0.52-1.04) mg/dL Glucose 156 H 251 H (74-99) mg/dL Calcium 9.1 8.2 L (8.4-10.2) mg/dL - Imaging CT scan - abdomen: report reviewed, image reviewed CT scan - pelvis: report reviewed, image reviewed Assessment and Plan Plan: CT of the abdomen and pelvis personally reviewed. Due to patients body habitus, has severe laxity of abdominal wall. No small obstruction noted. No need for surgical intervention. Conservative management. IV antibiotics for colitis.
[2018-10-03] MEDS: COLLAGENASE 250 UNIT/GM OINTMENT 30 GM TUBE TOPICAL SCH (16:59)
[2018-10-03 17:11] LABS: Glucose,Whole Blood 196 mg/dL (75-99)
--- NOTE | 2018-10-03 18:15 | PN ---
PROGRESS NOTE DATE OF SERVICE: 10/03/2018. REASON FOR FOLLOWUP: 1. Sepsis. 2. Left foot wound. INTERVAL HISTORY: The patient did have significant change in her clinical condition last night. Apparently the patient was on bedside commode, the patient did have an acute episode of unresponsiveness. The patient was hypertensive and tachycardic. He has been given multiple fluid boluses and subsequently patient has been transferred to ICU. The patient did spike a fever of 99.92 with highest. She has multiple fluid boluses and currently getting Levophed at 5 mics per the RN. The patient is lethargic on Ventimask. No nausea, vomiting or any diarrhea reported by the nursing staff. She was unable to provide any history. REVIEW OF SYSTEMS: Positive points have been mentioned in HPI. The rest of the systems have been negative. Past medical and surgical history unchanged. Medication reviewed. PHYSICAL EXAMINATION: Blood pressure 96/60 with a pulse of 89, temperature 99.9, he is 99% on Venti mask. General description is an elderly female lying in bed in no distress. HEENT examination: No pallor or scleral icterus. Oral mucosa membranes dry. Lungs unlabored breathing, decreased breath sounds in the bases. No wheeze or crackles. Heart S1, S2 tachycardic. Irregular rhythm. ABDOMEN: Soft, mild distended. No guarding. No rigidity. No organomegaly. EXTREMITIES: No edema of the feet. Examination of the left foot medial border wound with some necrotic fat, but no sign of surrounding redness. Foot was felt to be cold to touch. No foul smelling drainage. Neurological: The patient is currently lethargic. LABS: Hemoglobin is 12.4, white count 20.6 with a BUN of 39, creatinine 1.18. Lactic acid 3.1. Blood culture obtained currently pending. The patient did have a CT abdomen and pelvis which raises the possibility of colitis, but no evidence of any abscess or perforation. DIAGNOSTIC IMPRESSION AND PLAN: 1. Patient with sepsis. Source is likely abdominal. The patient did have a history of atrial fibrillation with RVR, now with evidence of colitis with a question of possible ischemic colitis to be the likely etiology versus diverticulitis. The patient did have a history of constipation. Did not have any bowel movements for almost 7 days so it was relieved with some laxative. We will need to cover for the enteric gram negative both aerobes and anaerobes in this patient who has previous history of Pseudomonas infection. 2. Patient with left medial foot wound currently with some slough tissue, but no evidence of any significant cellulitis. Clinically doubt postoperative infection. PLAN: 1. Zosyn 3.375 g q.8 hours. 2. Santyl to the left medial foot wound to be changed daily. 3. We will follow up on clinical condition and cultures to further adjust medication if needed. Daughter was present at bedside. Questions and concerns were answered. MMODL / IJN: [id number] /
[2018-10-03] MEDS: OXYBUTYNIN CHLORIDE 5 MG TAB PO SCH (20:29)
[2018-10-03] MEDS: TROSPIUM CHLORIDE 20 MG TABLET PO SCH (20:30)
[2018-10-03] MEDS: NOREPINEPHRINE 4 MG in SODIUM CHLORIDE 0.9% 250 ML IV SCH (23:30)
[2018-10-03 23:58] LABS: Glucose,Whole Blood 146 mg/dL (75-99)
[2018-10-04] MEDS: INSULIN ASPART 100 UNIT/ML 1 ML 10 ML VIAL SQ SCH ×6 (00:29→21:44)
[2018-10-04] MEDS: PIPERACILLIN-TAZOBACTAM 3.375 GM in SODIUM CHLORIDE 0.9% 100 ML IVPB SCH ×3 (00:35→21:43)
[2018-10-04] MEDS: traMADol 50 MG TAB PO PRN ×2 (04:59→10:25)
[2018-10-04 05:28] LABS: Anisocytosis Slight; HCT 34.3 % (34.0-46.0); HGB 11.2 gm/dL (11.4-16.0); MCH 30.3 pg (25.0-35.0); MCHC 32.6 g/dL (31.0-37.0); MCV 92.9 fL (80.0-100.0); Mean Platelet Volume 6.6; Platelet Count 237 k/uL (150-450); RDW 16.3 % (11.5-15.5); WBC 11.4 k/uL (3.8-10.6)
[2018-10-04 05:37] LABS: Anion Gap 4 mmol/L; Blood Urea Nitrogen 29 mg/dL (7-17); Calcium 8.2 mg/dL (8.4-10.2); Carbon Dioxide 31 mmol/L (22-30); Chloride 102 mmol/L (98-107); Glucose 81 mg/dL (74-99); Phosphorus 2.4 mg/dL (2.5-4.5); Potassium 3.2 mmol/L (3.5-5.1); Sodium 137 mmol/L (137-145)
[2018-10-04] MEDS ORDERED: Potassium Replacement Protocol 1 EACH MISC MISCELLANE PRN (06:02)
[2018-10-04 06:21] LABS: Glucose,Whole Blood 66 mg/dL (75-99)
[2018-10-04] MEDS ORDERED: DEXTROSE 50%-WATER 50 ML SYRINGE IVP STA (06:26)
[2018-10-04] MEDS: SODIUM CHLORIDE 0.9% 1,000 ML IV SCH ×2 (06:28→16:27)
[2018-10-04] MEDS: POTASSIUM BICARBONATE/CIT AC 20 MEQ TABLET.EFF NG-TUBE SCH ×2 (06:34→08:40)
[2018-10-04 06:57] LABS: Glucose,Whole Blood 237 mg/dL (75-99)
--- NOTE | 2018-10-04 07:23 | PN ---
PROGRESS NOTE DATE OF SERVICE: 10/03/2018 PRESENTING COMPLAINT: Tired. INTERVAL HISTORY: Patient admitted with AFIB with rapid ventricular rate. Patient became hypotensive and went with rapid ventricular rate, had to be moved to the ICU. Also having abdominal pain. This morning when I saw the patient, patient is on Levophed 2 mcg, tired, run down. CT scan of the abdomen was suggestive of colitis. REVIEW OF SYSTEMS: Cannot be done as patient is rather exhausted. CURRENT MEDICATIONS: Reviewed that include subcu Lovenox, p.o. Lasix, Levemir, Lopressor p.o., IV Levophed, IV Zosyn, IV vancomycin. PHYSICAL EXAMINATION: On examination, afebrile, pulse 98, respiration 14, blood pressure 92/65, pulse ox 92% on 40% Venti mask. GENERAL APPEARANCE: Lying in bed, tired with a Venti mask in place. EYES: Pupils equal, conjunctivae normal. NECK: JVD unable to assess. Mass not palpable. RESPIRATORY: Effort normal. LUNGS: Fair entry. CARDIOVASCULAR: Heart sounds irregular, no edema. ABDOMEN: Soft. Minimal tenderness. No guarding or rigidity. PSYCHIATRY: Patient lethargic, but arousable. EXTREMITIES: Right arm currently not in a sling. INVESTIGATIONS: White count 20.6, potassium 4.7, BUN 39, creatinine 1.18. CT scan was suggestive of colitis on the left side. ASSESSMENT: 1. Persistent atrial fibrillation, rapid ventricular rate on presentation. 2. Acute hypotension could be related to atrial fibrillation with rapid ventricular rate. 3. Acute abdomen CT scan suggestive of colitis. This could be ischemic colitis from hypotension, embolic phenomenon is a possibility. 4. Diabetes mellitus type 2, chronically on insulin. 5. Peripheral artery disease. 6. Coronary artery disease. 7. Hyperlipidemia. 8. Essential hypertension. 9. Primary osteoarthritis. 10.Chronic kidney disease. 11.Peripheral neuropathy. 12.Chronic wound on the ball of the left big toe, not infected, Beal's grade 2. 13.Stage II left heel pressure ulcer present on admission. 14.Right humeral neck fracture with chronic pain. 15.Medical debility. Uses a walker at baseline. 16.Hypotensive shock, probably from rapid atrial fibrillation requiring pressor support. PLAN: Spoke to the family at the bedside. Continue current medication and treatment plan and supportive care. Patient on empirical antibiotics including IV vancomycin and Zosyn. Also on Levophed. I told the nurse to get the right arm back in a sling. MMODL / IJN: [id number] /
--- NOTE | 2018-10-04 07:41 | XR ---
EXAMINATION TYPE: XR chest 1V portable DATE OF EXAM: 10/04/2018 COMPARISON: Prior chest x-ray 10/03/2018 HISTORY: Congestive heart failure TECHNIQUE: Single frontal view of the chest is obtained. FINDINGS: NG tube is present with the distal tip coursing to the inferior extent of the exam. Defibr illator is stable. Patient is rotated, there are cardiac leads. No pneumothorax. Bibasilar patchy den sities present. Old traumatic changes along the right chest wall are stable. Interstitium is mildly i ncreased. Heart remains enlarged. IMPRESSION: There may be basilar effusions, atelectasis, correlate for possible interstitial edema. Follow-up PA and lateral chest x-ray recommended when stable.
--- NOTE | 2018-10-04 07:50 | P.PN ---
Subjective Progress Note Date: 10/04/18 Principal diagnosis: Atrial fibrillation with rapid ventricular response This is a pleasant 83-year-old female patient with a past medical history significant for coronary artery disease, chronic atrial fibrillation, not on any oral anticoagulation, as well as multiple comorbid conditions, was admitted to the hospital was atrial fibrillation with rapid ventricular response. Please note that the patient fell a few weeks ago and fractured her left arm. She underwent an echocardiogram which revealed impaired LV function was EF around 35% with moderate MR. There was also mild aortic stenosis. The patient was transferred to the intensive care unit last night. During a bowel movement last night, she felt dizzy and lightheaded and the blood pressure drop and subsequently she went into A. fib with RVR. Because of that she was transferred to the intensive care unit. On follow-up with the patient today, October 042018, the patient continues to be in atrial fibrillation was controlled heart rate. Currently she is on amiodarone by mouth as well as metoprolol by mouth. She is not on any oral anticoagulation because of her history of falling and bleeding. She is off norepinephrine completely. Objective - Vital Signs Vital signs: Vital Signs Temp 99.2 F 10/04/18 04:00 Pulse 85 10/04/18 06:30 Resp 11 L 10/04/18 06:30 BP 124/57 10/04/18 06:30 Pulse Ox 96 10/04/18 06:30 Intake & Output 10/03/18 10/04/18 10/04/18 18:59 06:59 18:59 Intake Total 0667.549 4532.023 Output Total 1615 1850 Balance 86.278 -637.977 Weight 121.2 kg Intake: IV 1400 1100 Piperacillin-Tazobactam 3 100 .375 gm In Sodium Chloride 0.9% 100 ml @ 25 mls/hr IVPB Q12H [facility] Rx# :[id number] Sodium Chloride 0.9% 1, 1300 1100 000 ml @ 100 mls/hr IV . Q10H [facility] Rx#:[id number] Intake, IV Titration 301.278 112.023 Amount Amiodarone 450 mg In 177.778 61.273 Dextrose 5% in Water 250 ml @ 1 MG/MIN 34.53 mls/ hr IV .Q7H31M [facility] Rx#: [id number] Norepinephrine 4 mg In 123.5 50.75 Sodium Chloride 0.9% 250 ml @ Titrate IV .Q0M [facility] Rx#:[id number] Output: Gastric Drainage 300 Urine 1315 1850 Other: Voiding Method Indwelling Catheter Indwelling Catheter # Bowel Movements 1 - Constitutional General appearance: Present: no acute distress - Respiratory Respiratory: bilateral: diminished - Cardiovascular Rhythm: irregularly irregular Heart sounds: normal: S1, S2 - Labs CBC & Chem 7: 10/04/18 04:42 10/04/18 04:42 Labs: Abnormal Lab Results - Last 24 Hours (Table) 10/03/18 10/03/18 10/03/18 Range/Units 07:33 07:33 07:33 WBC 20.6 H (3.8-10.6) k/uL RBC (3.80-5.40) m/uL Hgb (11.4-16.0) gm/dL RDW 16.4 H (11.5-15.5) % Sodium 135 L (137-145) mmol/L Potassium (3.5-5.1) mmol/L Carbon Dioxide (22-30) mmol/L BUN 39 H (7-17) mg/dL Creatinine 1.18 H (0.52-1.04) mg/dL Glucose 251 H (74-99) mg/dL POC Glucose (mg/dL) (75-99) mg/dL Calcium 8.2 L (8.4-10.2) mg/dL Phosphorus 4.7 H (2.5-4.5) mg/dL Amylase <30 L (30-110) U/L Lipase 14 L (23-300) U/L 10/03/18 10/03/18 10/03/18 Range/Units 07:49 12:38 16:59 WBC (3.8-10.6) k/uL RBC (3.80-5.40) m/uL Hgb (11.4-16.0) gm/dL RDW (11.5-15.5) % Sodium (137-145) mmol/L Potassium (3.5-5.1) mmol/L Carbon Dioxide (22-30) mmol/L BUN (7-17) mg/dL Creatinine (0.52-1.04) mg/dL Glucose (74-99) mg/dL POC Glucose (mg/dL) 264 H 193 H 196 H (75-99) mg/dL Calcium (8.4-10.2) mg/dL Phosphorus (2.5-4.5) mg/dL Amylase (30-110) U/L Lipase (23-300) U/L 10/03/18 10/04/18 10/04/18 Range/Units 23:47 04:42 04:42 WBC 11.4 H (3.8-10.6) k/uL RBC 3.70 L (3.80-5.40) m/uL Hgb 11.2 L (11.4-16.0) gm/dL RDW 16.3 H (11.5-15.5) % Sodium (137-145) mmol/L Potassium 3.2 L (3.5-5.1) mmol/L Carbon Dioxide 31 H (22-30) mmol/L BUN 29 H (7-17) mg/dL Creatinine (0.52-1.04) mg/dL Glucose (74-99) mg/dL POC Glucose (mg/dL) 146 H (75-99) mg/dL Calcium 8.2 L (8.4-10.2) mg/dL Phosphorus 2.4 L (2.5-4.5) mg/dL Amylase (30-110) U/L Lipase (23-300) U/L 10/04/18 10/04/18 Range/Units 06:09 06:45 WBC (3.8-10.6) k/uL RBC (3.80-5.40) m/uL Hgb (11.4-16.0) gm/dL RDW (11.5-15.5) % Sodium (137-145) mmol/L Potassium (3.5-5.1) mmol/L Carbon Dioxide (22-30) mmol/L BUN (7-17) mg/dL Creatinine (0.52-1.04) mg/dL Glucose (74-99) mg/dL POC Glucose (mg/dL) 66 L 237 H (75-99) mg/dL Calcium (8.4-10.2) mg/dL Phosphorus (2.5-4.5) mg/dL Amylase (30-110) U/L Lipase (23-300) U/L Microbiology - Last 24 Hours (Table) 10/03/18 00:39 Blood Culture - Preliminary Blood No Growth after 24 hours 10/03/18 01:06 Gram Stain - Preliminary Ankle - Left Wound Culture - Preliminary 10/03/18 00:25 Urine Culture - Preliminary Urine,Catheterized Assessment and Plan Assessment: Assessment #1 atrial fibrillation with rapid ventricular response #2 known chronic persistent atrial fibrillation #3 coronary artery disease #4 ischemic cardiomyopathy #5 multiple comorbid conditions Plan #1 continue the current dose of metoprolol at 400 mg by mouth twice a day #2 continue the current dose of metoprolol unless you are and able to wean her from the levophed #3 continue holding anticoagulation. #4 follow-up with the patient
[2018-10-04] MEDS: PANTOPRAZOLE 40 MG/10 ML VIAL IVP SCH (08:40)
[2018-10-04] MEDS: MAGNESIUM HYDROXIDE 2,400 MG/10 ML CUP PO PRN (08:40)
[2018-10-04] MEDS: ASPIRIN 81 MG PO SCH (08:41)
[2018-10-04] MEDS: SERTRALINE 25 MG TAB PO SCH (08:41)
[2018-10-04] MEDS: OXYBUTYNIN CHLORIDE 5 MG TAB PO SCH ×2 (08:41→21:45)
[2018-10-04] MEDS: GABAPENTIN 100 MG CAP PO SCH ×3 (08:41→21:46)
[2018-10-04] MEDS: AMIODARONE 200 MG TAB PO SCH ×2 (08:42→21:44)
[2018-10-04] MEDS: FUROSEMIDE 40 MG TAB PO SCH ×2 (08:42→16:25)
[2018-10-04] MEDS: THIAMINE 100 MG TAB PO SCH (08:44)
[2018-10-04] MEDS: MAGNESIUM OXIDE 400 MG TAB PO SCH ×2 (08:58→21:44)
[2018-10-04] MEDS ORDERED: VANCOMYCIN 1,250 MG in SODIUM CHLORIDE 0.9% 250 ML IVPB SCH (10:00)
[2018-10-04] MEDS: DICLOFENAC SODIUM GEL 100 GM TUBE TOPICAL SCH ×4 (10:28→21:46)
[2018-10-04 11:23] LABS: Glucose,Whole Blood 85 mg/dL (75-99)
[2018-10-04] MEDS: COLLAGENASE 250 UNIT/GM OINTMENT 30 GM TUBE TOPICAL SCH (11:52)
[2018-10-04] MEDS: MENTHOL-ZINC OXIDE OINT 113 GM TUBE TOPICAL SCH ×2 (11:52→21:47)
[2018-10-04] MEDS: VANCOMYCIN 1,250 MG in SODIUM CHLORIDE 0.9% 250 ML IVPB SCH (11:53)
--- NOTE | 2018-10-04 11:57 | P.PN ---
Subjective Progress Note Date: 10/04/18 Principal diagnosis: Recurrent episodes of atrial fibrillation with RVR associated with hypotension. This is an 83-year-old white female with history of multiple medical problems including coronary artery disease, hypertension, osteoarthritis, urinary incontinence, peripheral neuropathy, patient had a recent right humeral neck fracture, and the recommendation was to keep right arm in a sling. Patient has been frequently admitted recently with mostly episodes of atrial fibrillation and RVR, however as soon as the patient goes back to retirement, she develops tachycardia again, and requires readmission to the hospital. According to the daughter this already happened 3 times. This time the patient was readmitted on 09/30/2018, and she was complaining of palpitations, patient was placed on Cardizem drip, and she was later switched to oral treatment. Last night the patient developed multiple complaints including including palpitations, low blood pressure, and she was noted to have elevated lactic acid, she was also complaining of left upper quadrant pain. Apparently the patient has not had a bowel movement in the last 8 days. Her abdomen was distended when I was notified about the patient. I did recommend transfer the patient to the ICU, and I recommended a nasogastric tube to be placed, recommended surgical consultation, and CT of the abdomen once the patient's blood pressure is stabilized. Patient was sent to the ICU, she remains on 3 g of norepinephrine at present, she did receive fluid boluses, didn't receive broad-spectrum antibiotics, and surgical consultation was initiated. Upon my evaluation today , the patient is in atrial fibrillation but rate seems to be controlled. Her blood pressure is marginal remains on 3 g of norepinephrine. Patient is having less and less abdominal pain. She does have minimal tenderness in the left upper quadrant, and she is known to have history of chronic pancreatitis. Amylase and lipase levels are pending. Patient was already seen by general surgery on consultation, and CT of the abdomen and pelvis is pending. Pulmonary -[place] the patient is feeling better, denies any cough no wheezing no shortness of breath, and no chest pain. Patient was reevaluated today on 10/04/2018, patient remains in the ICU, and her atrial fibrillation seems to be much better control. She is now on oral amiodarone, she is off norepinephrine, and she is not on any anticoagulation therapy because of contraindication. Patient is relatively asymptomatic, she has some vague discomfort in her left hip area, denies any shortness of breath, no cough, no wheezing, no chest pain. Her echocardiogram did show evidence of severe LV dysfunction and ejection fraction of 35%, and she had a mitral regurgitation that's moderate as well as mild aortic stenosis. All labs were reviewed today, she has a slightly low potassium, otherwise the labs were relatively unremarkable. Chest x-ray showed mostly bibasilar atelectasis, and minimal interstitial edema is suspected Objective - Vital Signs Vital signs: Vital Signs Temp 98.4 F 10/04/18 09:00 Pulse 100 10/04/18 10:30 Resp 28 H 10/04/18 10:30 BP 99/55 10/04/18 10:30 Pulse Ox 96 10/04/18 10:30 Intake & Output 10/03/18 10/04/18 10/04/18 18:59 06:59 18:59 Intake Total 8659.564 7661.023 500 Output Total 1615 1850 345 Balance 86.278 -637.977 155 Weight 121.2 kg 80.2 kg Intake: IV 1400 1100 500 Piperacillin-Tazobactam 3 100 .375 gm In Sodium Chloride 0.9% 100 ml @ 25 mls/hr IVPB Q12H [facility] Rx# :[id number] Sodium Chloride 0.9% 1, 1300 1100 500 000 ml @ 100 mls/hr IV . Q10H [facility] Rx#:[id number] Intake, IV Titration 301.278 112.023 Amount Amiodarone 450 mg In 177.778 61.273 Dextrose 5% in Water 250 ml @ 1 MG/MIN 34.53 mls/ hr IV .Q7H31M [facility] Rx#: [id number] Norepinephrine 4 mg In 123.5 50.75 Sodium Chloride 0.9% 250 ml @ Titrate IV .Q0M [facility] Rx#:[id number] Output: Gastric Drainage 300 Urine 1315 1850 345 Other: Voiding Method Indwelling Catheter Indwelling Catheter # Bowel Movements 1 - Exam Physical Exam: Revealed an 83-year-old female in no distress, Head: Atraumatic, normocephalic. HEENT:[Neck is supple.] [No neck masses.] [No thyromegaly.] [No JVD.] Chest: [Diminished breath sounds at the bases no crackles or rhonchi or wheezes. Cardiac Exam: Irregular irregular rhythm. [Normal S1 and S2, no S3 gallop, 2/6 systolic murmur thought the precordium..] Abdomen: [Soft, slightly tender left upper quadrant,, no megaly, no rebound, no guarding, diminished bowel sounds. Extremities: [No clubbing, plus bipedal edema, no cyanosis.] Right upper extremity is in a sling. Limitation in range of motion of right upper extremity. Lower extremities are wrapped with sterile dressings. Neurological Exam: Alert oriented 3, no gross focal neurologic deficit, her lethargy has significantly improved in the last 24 hours. Skin: No rashes. However lower extremities are wrapped with sterile dressings, she had superficial ulceration on lower extremities above the ankles. - Labs CBC & Chem 7: 10/04/18 04:42 10/04/18 04:42 Labs: Abnormal Lab Results - Last 24 Hours (Table) 10/03/18 10/03/18 10/03/18 Range/Units 12:38 16:59 23:47 WBC (3.8-10.6) k/uL RBC (3.80-5.40) m/uL Hgb (11.4-16.0) gm/dL RDW (11.5-15.5) % Potassium (3.5-5.1) mmol/L Carbon Dioxide (22-30) mmol/L BUN (7-17) mg/dL POC Glucose (mg/dL) 193 H 196 H 146 H (75-99) mg/dL Calcium (8.4-10.2) mg/dL Phosphorus (2.5-4.5) mg/dL 10/04/18 10/04/18 10/04/18 Range/Units 04:42 04:42 06:09 WBC 11.4 H (3.8-10.6) k/uL RBC 3.70 L (3.80-5.40) m/uL Hgb 11.2 L (11.4-16.0) gm/dL RDW 16.3 H (11.5-15.5) % Potassium 3.2 L (3.5-5.1) mmol/L Carbon Dioxide 31 H (22-30) mmol/L BUN 29 H (7-17) mg/dL POC Glucose (mg/dL) 66 L (75-99) mg/dL Calcium 8.2 L (8.4-10.2) mg/dL Phosphorus 2.4 L (2.5-4.5) mg/dL 10/04/18 Range/Units 06:45 WBC (3.8-10.6) k/uL RBC (3.80-5.40) m/uL Hgb (11.4-16.0) gm/dL RDW (11.5-15.5) % Potassium (3.5-5.1) mmol/L Carbon Dioxide (22-30) mmol/L BUN (7-17) mg/dL POC Glucose (mg/dL) 237 H (75-99) mg/dL Calcium (8.4-10.2) mg/dL Phosphorus (2.5-4.5) mg/dL Microbiology - Last 24 Hours (Table) 10/03/18 00:25 Urine Culture - Final Urine,Catheterized 10/03/18 01:06 Gram Stain - Preliminary Ankle - Left Wound Culture - Preliminary Gram Neg Bacilli 10/03/18 00:39 Blood Culture - Preliminary Blood No Growth after 24 hours Assessment and Plan Assessment: Impression: 1 recurrent episodes of atrial fibrillation with RVR, associated with hypotension requiring pressors. Strongly doubt sepsis. Although her left ankle wound culture was positive for gram-negative bacilli, final identification is pending, blood cultures remain negative. 2 abdominal pain, workup is in progress, could be related to chronic pancreatitis, strongly doubt abdominal sepsis. 3 acute interstitial edema mostly iatrogenic since the patient was given fluid boluses yesterday prior to transfer to the ICU. 4 known history of chronic atrial fibrillation, patient has contraindication to anticoagulation therapy. 5 history of ischemic cardiomyopathy and LV dysfunction. History of underlying coronary artery disease. 6 recent history of right humeral neck fracture. Treatment is conservative measures mostly at this point. Recommendation: Continue present antibiotics coverage, continue amiodarone, continue Lasix, subcu Lovenox, Protonix, Zosyn, and vancomycin for now. May change the antibiotics depending on the final cultures in the next 24 hours. In the meantime I believe the patient could be transferred out of the ICU to a monitor bed on selective today. We'll continue to follow. She is presently hemodynamically stable, and off norepinephrine. Time with Patient: Less than 30
--- NOTE | 2018-10-04 12:01 | P.PN ---
<Aislinn Williamson Natty - Last Filed: 10/04/18 11:56> Subjective Progress Note Date: 10/04/18 CHIEF COMPLAINT: Abdominal pain HISTORY OF PRESENT ILLNESS: Patient examined at the bedside. She is awake and alert. NG tube intact. Currently clamped. Patient denies nausea or vomiting. Passing flatus. She complains of mild right sided abdominal pain. She reports known history of two hernias for many years that have not caused her any problems. PHYSICAL EXAM: VITAL SIGNS: Currently stable GENERAL: Well-developed in no acute distress HEENT: NG tube intact to LIS. No sclera icterus. Extraocular movements grossly intact. Moist buccal mucosa. Head is atraumatic, normocephalic. No nasal drainage. NECK: Supple without lymphadenopathy. CHEST: Non-labored respirations and equal bilateral excursions. CARDIOVASCULAR: Irregular rhythm. Palpable 2+ radial pulses. ABDOMEN: Soft. Nondistended. Mild pain upon palpation of left and right lower quadrants, more pain on right MUSCULOSKELETAL: No clubbing, cyanosis or edema. NEUROLOGIC: No focal or lateralizing signs. Cranial nerves II through XII grossly intact. PSYCH: Awake and alert. SKIN: Well perfused. Good skin turgor. IMAGING: Per radiologist dictation: 1. X-ray abdomen: Nonacute abdomen. Numerous calcifications over the upper abdomen and right upper quadrant consistent with chronic pancreatitis 2. CT abdomen/pelvis: Wall thickening with induration of the pericolonic fat within the left pelvis correlate for colitis or mild diverticulitis. Wide mouth left-sided abdominal wall hernia. Small bilateral effusions and bilateral infiltrates. ASSESSMENT: 1. Abdominal pain, patient reported no bowel movement for 8 days, +BM yesterday , abdominal pain seems to be resolving 2. Wall thickening with induration of the pericolonic fat within the left pelvis correlate for colitis or mild diverticulitis per CT 3. History of chronic pancreatitis 4. History of cholecystectomy, many years ago per daughter 5. History of intrahepatic stones, requiring ERCP with stone retrieval and stent placement, last year per daughter 6. Hypotension 7. Afib with RVR 8. Known history of hernia x 2 per patient without obstruction PLAN: 1. Patient may be started on clear liquid diet 2. Discontinue NG tube 3. No surgical intervention required Nurse practitioner note has been reviewed by physician. Signing provider agrees with the documented findings, assessment, and plan of care. Objective - Vital Signs Vital signs: Vital Signs Temp 98.4 F 10/04/18 09:00 Pulse 100 10/04/18 10:30 Resp 28 H 10/04/18 10:30 BP 99/55 10/04/18 10:30 Pulse Ox 96 10/04/18 10:30 Intake & Output 10/03/18 10/04/18 10/04/18 18:59 06:59 18:59 Intake Total 0264.516 6461.023 500 Output Total 1615 1850 345 Balance 86.278 -637.977 155 Weight 121.2 kg 80.2 kg Intake: IV 1400 1100 500 Piperacillin-Tazobactam 3 100 .375 gm In Sodium Chloride 0.9% 100 ml @ 25 mls/hr IVPB Q12H [facility] Rx# :[id number] Sodium Chloride 0.9% 1, 1300 1100 500 000 ml @ 100 mls/hr IV . Q10H [facility] Rx#:[id number] Intake, IV Titration 301.278 112.023 Amount Amiodarone 450 mg In 177.778 61.273 Dextrose 5% in Water 250 ml @ 1 MG/MIN 34.53 mls/ hr IV .Q7H31M [facility] Rx#: [id number] Norepinephrine 4 mg In 123.5 50.75 Sodium Chloride 0.9% 250 ml @ Titrate IV .Q0M [facility] Rx#:[id number] Output: Gastric Drainage 300 Urine 1315 1850 345 Other: Voiding Method Indwelling Catheter Indwelling Catheter # Bowel Movements 1 - Labs CBC & Chem 7: 10/04/18 04:42 10/04/18 04:42 Labs: Abnormal Lab Results - Last 24 Hours (Table) 10/03/18 10/03/18 10/03/18 Range/Units 12:38 16:59 23:47 WBC (3.8-10.6) k/uL RBC (3.80-5.40) m/uL Hgb (11.4-16.0) gm/dL RDW (11.5-15.5) % Potassium (3.5-5.1) mmol/L Carbon Dioxide (22-30) mmol/L BUN (7-17) mg/dL POC Glucose (mg/dL) 193 H 196 H 146 H (75-99) mg/dL Calcium (8.4-10.2) mg/dL Phosphorus (2.5-4.5) mg/dL 10/04/18 10/04/18 10/04/18 Range/Units 04:42 04:42 06:09 WBC 11.4 H (3.8-10.6) k/uL RBC 3.70 L (3.80-5.40) m/uL Hgb 11.2 L (11.4-16.0) gm/dL RDW 16.3 H (11.5-15.5) % Potassium 3.2 L (3.5-5.1) mmol/L Carbon Dioxide 31 H (22-30) mmol/L BUN 29 H (7-17) mg/dL POC Glucose (mg/dL) 66 L (75-99) mg/dL Calcium 8.2 L (8.4-10.2) mg/dL Phosphorus 2.4 L (2.5-4.5) mg/dL 10/04/18 Range/Units 06:45 WBC (3.8-10.6) k/uL RBC (3.80-5.40) m/uL Hgb (11.4-16.0) gm/dL RDW (11.5-15.5) % Potassium (3.5-5.1) mmol/L Carbon Dioxide (22-30) mmol/L BUN (7-17) mg/dL POC Glucose (mg/dL) 237 H (75-99) mg/dL Calcium (8.4-10.2) mg/dL Phosphorus (2.5-4.5) mg/dL Microbiology - Last 24 Hours (Table) 10/03/18 00:25 Urine Culture - Final Urine,Catheterized 10/03/18 01:06 Gram Stain - Preliminary Ankle - Left Wound Culture - Preliminary Gram Neg Bacilli 10/03/18 00:39 Blood Culture - Preliminary Blood No Growth after 24 hours Assessment and Plan (1) Abdominal pain Current Visit: Yes Status: Acute Code(s): R10.9 - UNSPECIFIED ABDOMINAL PAIN SNOMED Code(s): 29516822 (2) History of cholecystectomy Current Visit: Yes Status: Acute Code(s): Z90.49 - ACQUIRED ABSENCE OF OTHER SPECIFIED PARTS OF DIGESTIVE TRACT SNOMED Code(s): 753069480 (3) History of cholelithiasis Current Visit: Yes Status: Acute Code(s): Z87.19 - PERSONAL HISTORY OF OTHER DISEASES OF THE DIGESTIVE SYSTEM SNOMED Code(s): 640216589 (4) Chronic pancreatitis Current Visit: Yes Status: Acute Code(s): K86.1 - OTHER CHRONIC PANCREATITIS SNOMED Code(s): 934482803 (5) Atrial fibrillation Current Visit: Yes Status: Acute Code(s): I48.91 - UNSPECIFIED ATRIAL FIBRILLATION SNOMED Code(s): 37736767 (6) Atrial fibrillation with RVR Current Visit: No Status: Acute Code(s): I48.91 - UNSPECIFIED ATRIAL FIBRILLATION SNOMED Code(s): 898565082089232 <Ximena Hendrickson N - Last Filed: 10/04/18 13:36> Objective - Vital Signs Vital signs: Vital Signs Temp 98.8 F 10/04/18 12:00 Pulse 100 10/04/18 13:00 Resp 18 10/04/18 13:00 BP 100/52 10/04/18 13:00 Pulse Ox 97 10/04/18 13:00 Intake & Output 10/03/18 10/04/18 10/04/18 18:59 06:59 18:59 Intake Total 7414.038 4327.023 850 Output Total 1615 1850 595 Balance 86.278 -637.977 255 Weight 121.2 kg 80.2 kg Intake: IV 1400 1100 850 Piperacillin-Tazobactam 3 100 100 .375 gm In Sodium Chloride 0.9% 100 ml @ 25 mls/hr IVPB Q12H [facility] Rx# :[id number] Sodium Chloride 0.9% 1, 1300 1100 500 000 ml @ 100 mls/hr IV . Q10H [facility] Rx#:[id number] Vancomycin 1,250 mg In 250 Sodium Chloride 0.9% 250 ml @ 125 mls/hr IVPB Q48H [facility] Rx#:[id number] Intake, IV Titration 301.278 112.023 Amount Amiodarone 450 mg In 177.778 61.273 Dextrose 5% in Water 250 ml @ 1 MG/MIN 34.53 mls/ hr IV .Q7H31M [facility] Rx#: [id number] Norepinephrine 4 mg In 123.5 50.75 Sodium Chloride 0.9% 250 ml @ Titrate IV .Q0M [facility] Rx#:[id number] Output: Gastric Drainage 300 Urine 1312 3911 021 Other: Voiding Method Indwelling Catheter Indwelling Catheter Indwelling Catheter # Bowel Movements 1 - Labs CBC & Chem 7: 10/04/18 04:42 10/04/18 04:42 Labs: Abnormal Lab Results - Last 24 Hours (Table) 10/03/18 10/03/18 10/04/18 Range/Units 16:59 23:47 04:42 WBC 11.4 H (3.8-10.6) k/uL RBC 3.70 L (3.80-5.40) m/uL Hgb 11.2 L (11.4-16.0) gm/dL RDW 16.3 H (11.5-15.5) % Potassium (3.5-5.1) mmol/L Carbon Dioxide (22-30) mmol/L BUN (7-17) mg/dL POC Glucose (mg/dL) 196 H 146 H (75-99) mg/dL Calcium (8.4-10.2) mg/dL Phosphorus (2.5-4.5) mg/dL 10/04/18 10/04/18 10/04/18 Range/Units 04:42 06:09 06:45 WBC (3.8-10.6) k/uL RBC (3.80-5.40) m/uL Hgb (11.4-16.0) gm/dL RDW (11.5-15.5) % Potassium 3.2 L (3.5-5.1) mmol/L Carbon Dioxide 31 H (22-30) mmol/L BUN 29 H (7-17) mg/dL POC Glucose (mg/dL) 66 L 237 H (75-99) mg/dL Calcium 8.2 L (8.4-10.2) mg/dL Phosphorus 2.4 L (2.5-4.5) mg/dL Microbiology - Last 24 Hours (Table) 10/03/18 00:25 Urine Culture - Final Urine,Catheterized 10/03/18 01:06 Gram Stain - Preliminary Ankle - Left Wound Culture - Preliminary Gram Neg Bacilli 10/03/18 00:39 Blood Culture - Preliminary Blood No Growth after 24 hours Assessment and Plan Plan: Patient seen and evaluated with [facility]. Imaging reviewed with non-obstructive abdominal wall hernias. Patient is clinically doing much better compared to yesterday. No surgical intervention as high risk also family not seeking surgical intervention. Conservative management with IV antibiotics and IV fluid hydration. May start liquid diet.
[2018-10-04] MEDS: LISINOPRIL-HCTZ 20-25 MG 1 EACH TAB PO SCH (12:05)
[2018-10-04] MEDS: METOPROLOL TARTRATE 50 MG TAB PO SCH ×2 (12:05→21:45)
[2018-10-04 12:20] LABS: Glucose,Whole Blood 82 mg/dL (75-99)
[2018-10-04 17:26] LABS: Glucose,Whole Blood 206 mg/dL (75-99)
[2018-10-04] MEDS: POTASSIUM CHLORIDE ER 20 MEQ TAB.ER PO SCH ×2 (17:59→21:43)
[2018-10-04 21:00] LABS: Glucose,Whole Blood 336 mg/dL (75-99)
[2018-10-04] MEDS: INSULIN DETEMIR 100 UNIT/ML 10 ML VIAL SQ SCH (21:44)
[2018-10-04] MEDS: TROSPIUM CHLORIDE 20 MG TABLET PO SCH (21:45)
--- NOTE | 2018-10-04 22:53 | PN ---
PROGRESS NOTE DATE OF SERVICE: 10/04/2018 REASON FOR FOLLOWUP: 1. Sepsis, possible abdominal source. 2. Left foot wound, diabetic, Shanna's grade 2. INTERVAL HISTORY: The patient is afebrile. She is more awake and alert today. She is breathing comfortably, currently off pressor support. No nausea. No vomiting. Mild lower abdominal pain. No diarrhea. PHYSICAL EXAMINATION: Blood pressure 113/57, pulse of 93, temperature 99.2. She is 97% on 2 L nasal cannula. General description is an elderly female up in the chair in no distress. RESPIRATORY SYSTEM: Unlabored breathing. Clear to auscultation anteriorly. ABDOMEN: Soft. Mildly tender in left lower quadrant area. Left foot is currently dressed; no obvious drainage on the dressing. LABS: Hemoglobin 11.2, white count down to 11.4. BUN of 29, creatinine 0.72. DIAGNOSTIC IMPRESSION AND PLAN: 1. Patient with sepsis. Source is likely abdominal. Patient did have evidence of colitis, possibly ischemic. The patient has a history of atrial fibrillation with RVR. Patient is currently covered with Zosyn. Continue to follow, watching her clinical course closely. 2. Left foot wound. Local care with Santyl. Keep the area off pressure. Family present at bedside. Their questions were answered. MMODL / IJN: [id number] /
[2018-10-05] MEDS: SODIUM CHLORIDE 0.9% 1,000 ML IV SCH ×2 (00:21→10:55)
[2018-10-05] MEDS: ENOXAPARIN 40 MG/0.4 ML SYRINGE SQ SCH ×2 (00:21→21:39)
[2018-10-05] MEDS: VANCOMYCIN 1,250 MG in SODIUM CHLORIDE 0.9% 250 ML IVPB SCH ×2 (02:45→17:17)
[2018-10-05 05:18] LABS: HCT 30.3 % (34.0-46.0); HGB 9.9 gm/dL (11.4-16.0); MCH 30.6 pg (25.0-35.0); MCHC 32.7 g/dL (31.0-37.0); MCV 93.8 fL (80.0-100.0); Mean Platelet Volume 6.9; Platelet Count 205 k/uL (150-450); RBC 3.23 m/uL (3.80-5.40); RDW 15.6 % (11.5-15.5); WBC 7.9 k/uL (3.8-10.6)
[2018-10-05] MEDS: PIPERACILLIN-TAZOBACTAM 3.375 GM in SODIUM CHLORIDE 0.9% 100 ML IVPB SCH ×3 (05:26→23:43)
[2018-10-05 05:28] LABS: Anion Gap 1 mmol/L; Blood Urea Nitrogen 19 mg/dL (7-17); Carbon Dioxide 32 mmol/L (22-30); Chloride 103 mmol/L (98-107); Glucose 105 mg/dL (74-99); Magnesium 1.7 mg/dL (1.6-2.3); Phosphorus 1.8 mg/dL (2.5-4.5); Potassium 3.9 mmol/L (3.5-5.1); Sodium 136 mmol/L (137-145)
[2018-10-05] MEDS ORDERED: Phosphorus Replacement Protoco 1 EACH MISC MISCELLANE PRN (05:45)
[2018-10-05] MEDS ORDERED: Magnesium Replacement Protocol 1 EACH MISC MISCELLANE PRN (05:46)
[2018-10-05 07:11] LABS: Glucose,Whole Blood 67 mg/dL (75-99)
[2018-10-05] MEDS: INSULIN ASPART 100 UNIT/ML 1 ML 10 ML VIAL SQ SCH ×4 (07:15→21:37)
--- NOTE | 2018-10-05 07:15 | P.PN ---
Subjective Progress Note Date: 10/05/18 Principal diagnosis: Atrial fibrillation with rapid ventricular response This is a pleasant 83-year-old female patient with a past medical history significant for coronary artery disease, chronic atrial fibrillation, not on any oral anticoagulation, as well as multiple comorbid conditions, was admitted to the hospital was atrial fibrillation with rapid ventricular response. Please note that the patient fell a few weeks ago and fractured her left arm. She underwent an echocardiogram which revealed impaired LV function was EF around 35% with moderate MR. There was also mild aortic stenosis. The patient was transferred to the intensive care unit last night. During a bowel movement last night, she felt dizzy and lightheaded and the blood pressure drop and subsequently she went into A. fib with RVR. Because of that she was transferred to the intensive care unit. On follow-up with the patient today, October 052018, the patient continues to be in atrial fibrillation was controlled heart rate. Currently she is on amiodarone by mouth as well as metoprolol by mouth. She is not on any oral anticoagulation because of her history of falling and bleeding. The patient can be transferred out of the ICU. Objective - Vital Signs Vital signs: Vital Signs Temp 97.8 F 10/05/18 04:00 Pulse 69 10/05/18 04:00 Resp 17 10/05/18 04:00 BP 104/59 10/05/18 04:00 Pulse Ox 98 10/05/18 04:00 Intake & Output 10/04/18 10/05/18 10/05/18 18:59 06:59 18:59 Intake Total 1250 900 Output Total 945 1020 Balance 305 -120 Weight 80.2 kg Intake: IV 1250 900 Piperacillin-Tazobactam 3 100 200 .375 gm In Sodium Chloride 0.9% 100 ml @ 25 mls/hr IVPB Q12H [facility] Rx# :[id number] Sodium Chloride 0.9% 1, 900 700 000 ml @ 100 mls/hr IV . Q10H [facility] Rx#:[id number] Vancomycin 1,250 mg In 250 Sodium Chloride 0.9% 250 ml @ 125 mls/hr IVPB Q48H [facility] Rx#:[id number] Output: Urine 945 1020 Other: Voiding Method Indwelling Catheter Indwelling Catheter # Bowel Movements 1 - Constitutional General appearance: Present: no acute distress - Respiratory Respiratory: bilateral: CTA - Cardiovascular Rhythm: irregularly irregular Heart sounds: normal: S1, S2 - Labs CBC & Chem 7: 10/05/18 04:33 10/05/18 04:33 Labs: Abnormal Lab Results - Last 24 Hours (Table) 10/04/18 10/04/18 10/04/18 Range/Units 14:16 17:14 20:49 RBC (3.80-5.40) m/uL Hgb (11.4-16.0) gm/dL Hct (34.0-46.0) % RDW (11.5-15.5) % Sodium (137-145) mmol/L Potassium 3.3 L (3.5-5.1) mmol/L Carbon Dioxide (22-30) mmol/L BUN (7-17) mg/dL Glucose (74-99) mg/dL POC Glucose (mg/dL) 206 H 336 H (75-99) mg/dL Calcium (8.4-10.2) mg/dL Phosphorus (2.5-4.5) mg/dL 10/05/18 10/05/18 10/05/18 Range/Units 04:33 04:33 07:00 RBC 3.23 L (3.80-5.40) m/uL Hgb 9.9 L (11.4-16.0) gm/dL Hct 30.3 L (34.0-46.0) % RDW 15.6 H (11.5-15.5) % Sodium 136 L (137-145) mmol/L Potassium (3.5-5.1) mmol/L Carbon Dioxide 32 H (22-30) mmol/L BUN 19 H (7-17) mg/dL Glucose 105 H (74-99) mg/dL POC Glucose (mg/dL) 67 L (75-99) mg/dL Calcium 8.0 L (8.4-10.2) mg/dL Phosphorus 1.8 L (2.5-4.5) mg/dL Microbiology - Last 24 Hours (Table) 10/03/18 00:39 Blood Culture - Preliminary Blood No Growth after 48 hours 10/03/18 00:25 Urine Culture - Final Urine,Catheterized 10/03/18 01:06 Gram Stain - Preliminary Ankle - Left Wound Culture - Preliminary Gram Neg Bacilli Assessment and Plan Assessment: Assessment #1 atrial fibrillation with rapid ventricular response #2 known chronic persistent atrial fibrillation #3 coronary artery disease #4 ischemic cardiomyopathy #5 multiple comorbid conditions Plan #1 continue the current dose of metoprolol at 400 mg by mouth twice a day #2 continue the current dose of metoprolol unless you are and able to wean her from the levophed #3 continue holding anticoagulation. #4 follow-up with the patient
[2018-10-05 07:24] LABS: Glucose,Whole Blood 99 mg/dL (75-99)
--- NOTE | 2018-10-05 07:27 | PN ---
PROGRESS NOTE DATE OF SERVICE: 10/04/2018 PRESENTING COMPLAINT: Tired. INTERVAL HISTORY: This patient is seen by me yesterday evening in the ICU. Admitted with AFIB with rapid ventricular rate. Then patient on the floor, became hypotensive with rapid ventricular rate. Moved to the ICU, also had abdominal pain. Patient was on pressors. Patient was taken off pressors this morning, doing better. Patient also felt to have underlying colitis. Abdominal pain is much improved. Had an NG tube that was taken out. REVIEW OF SYSTEMS: Done for constitutional, cardiovascular, GI, pulmonary; relevant findings as above. CURRENT MEDICATIONS: Reviewed that include p.o. Lasix, Lopressor, IV Zosyn and vancomycin. PHYSICAL EXAMINATION: Temperature 97.8, pulse 52, respiration 22, blood pressure 101/70, pulse ox 98% on 2 L. GENERAL APPEARANCE: Sitting up, more comfortable. EYES: Pupils equal, conjunctivae are normal. NECK: JVD not raised. Mass not palpable. RESPIRATORY: Effort normal. LUNGS: Fair entry. CARDIOVASCULAR: Heart is irregular, edema. ABDOMEN: Soft. Minimal tenderness. No guarding. PSYCHIATRY: Awake, answering questions. INVESTIGATIONS: Accu-Cheks are noted. White count 11.4, hemoglobin 11.2, potassium 3.2, BUN 29, creatinine 0.72. ASSESSMENT: 1. Persistent atrial fibrillation with rapid ventricular rate on presentation. 2. Acute hypertension, could be related to atrial fibrillation. 3. Acute colitis, could be ischemic, embolic phenomenon cannot be ruled out. 4. Diabetes mellitus type 2, chronically on insulin. 5. Peripheral artery disease. 6. Coronary artery disease. 7. Hyperlipidemia. 8. Essential hypertension. 9. Primary osteoarthritis. 10.Chronic kidney disease. 11.Peripheral neuropathy. 12.Chronic wound on the ball of the left big toe, not infected, Beal's grade 2. 13.Stage II left heel pressure ulcer, present on admission. 14.Right humeral neck fracture with chronic pain. 15.Medical debility, uses a walker at bedside. 16.Hypertensive shock, probably from rapid ventricular rate, requiring pressure support, now support is discontinued. PLAN: Patient is in ICU. Continue current medication and treatment plan and antibiotics. Heart rate is better controlled. Patient is given clear liquids. Will see how she does. MMODL / IJN: [id number] /
--- NOTE | 2018-10-05 09:07 | XR ---
EXAMINATION TYPE: XR chest 1V portable DATE OF EXAM: 10/05/2018 COMPARISON: 10/04/2018 HISTORY: Shortness of breath TECHNIQUE: Single frontal view of the chest is obtained. FINDINGS: Evidence of the previous trauma the left humerus with displaced fracture. Chronic appearin g rib deformities noted. Bilateral consolidation and pleural effusion. Cardiomegaly and cardiac devic e seen. No pneumothorax. Arthropathy of the shoulders. IMPRESSION: Bilateral consolidation and pleural effusion. Correlate for pneumonia versus CHF.
[2018-10-05] MEDS: MAGNESIUM SULFATE-D5W PMX 1 GM in DEXTROSE/WATER 1 100ML.BAG IVPB SCH ×2 (09:14→11:27)
[2018-10-05] MEDS: SERTRALINE 25 MG TAB PO SCH (09:15)
[2018-10-05] MEDS: THIAMINE 100 MG TAB PO SCH (09:15)
[2018-10-05] MEDS: PANTOPRAZOLE 40 MG TABLET PO SCH (09:15)
[2018-10-05] MEDS: GABAPENTIN 100 MG CAP PO SCH ×3 (09:15→21:39)
[2018-10-05] MEDS: AMIODARONE 200 MG TAB PO SCH ×2 (09:15→21:36)
[2018-10-05] MEDS: ASPIRIN 81 MG PO SCH (09:15)
[2018-10-05] MEDS: FUROSEMIDE 40 MG TAB PO SCH ×2 (09:16→15:44)
[2018-10-05] MEDS: OXYBUTYNIN CHLORIDE 5 MG TAB PO SCH ×2 (09:16→21:38)
[2018-10-05] MEDS: MAGNESIUM HYDROXIDE 2,400 MG/10 ML CUP PO PRN (09:17)
[2018-10-05] MEDS: DICLOFENAC SODIUM GEL 100 GM TUBE TOPICAL SCH ×4 (09:25→21:42)
[2018-10-05] MEDS: MAGNESIUM OXIDE 400 MG TAB PO SCH ×2 (09:33→21:37)
[2018-10-05] MEDS: METOPROLOL TARTRATE 50 MG TAB PO SCH ×2 (09:40→21:37)
[2018-10-05] MEDS: LISINOPRIL-HCTZ 20-25 MG 1 EACH TAB PO SCH (10:31)
[2018-10-05] MEDS: POTASSIUM PHOSPHATE 10 MMOL in SODIUM CHLORIDE 0.9% 250 ML IV SCH ×2 (10:31→13:44)
[2018-10-05] MEDS: MENTHOL-ZINC OXIDE OINT 113 GM TUBE TOPICAL SCH (10:54)
[2018-10-05] MEDS: COLLAGENASE 250 UNIT/GM OINTMENT 30 GM TUBE TOPICAL SCH (10:54)
[2018-10-05 11:12] LABS: Glucose,Whole Blood 173 mg/dL (75-99)
--- NOTE | 2018-10-05 11:14 | CDI ---
Documentation Clarification Form Date: 10/02/2018 10:55:45 AM From: Amy Ruiz RN, CCDS Admit Date: 09/29/2018 8:36:00 PM Patient Name: Natalia Vega Visit Number: [id number] ATTENTION: The Clinical Documentation Specialists (CDI) and [facility] Coding Staff appreciate your assistance in clarifying documentation. Please respond to the clarification below the line at the bottom and electronically sign. The CDI & [facility] Coding staff will review the response and follow-up if needed. Please note: Queries are made part of the Legal Health Record. If you have any questions, please contact the author of this message via ITS. Dr. Koch CHF is documented in the cardiology Consult an requires further specificity History/Risk Factors: pad, cad, hyperlipidemia, htn, cad Clinical Indicators: 09/30 Cardiology Consult: "she does have history of congestive heart failure, chronic atrial fibrillation for some reason she is not on any oral anticoagulation, diabetes, hypertension, and dyslipidemia." VS/Pulse OX: Temp 98.1, hr 126, rr 20, b/p 139/86, spo2 98% 2l nc 09/30/18 Echocardiogram Results: Ef 35%-40% Treatment: Po Lasix 40 mg BID In your professional opinion, can you please clarify the acuity and type of CHF if known? Chronic Systolic Heart Failure: Chronic Systolic & Diastolic Heart Failure: Unable to Determine Other, please specify MTDD
[2018-10-05] MEDS: traMADol 50 MG TAB PO PRN ×3 (12:18→21:38)
--- NOTE | 2018-10-05 12:30 | CDI ---
Documentation Clarification Form Date: 10/05/2018 12:09:46 PM From: Amy Ruiz RN, CCDS Admit Date: 09/21/2018 4:05:00 AM Patient Name: Sandy Garibay Visit Number: [id number] ATTENTION: The Clinical Documentation Specialists (CDI) and [facility] Coding Staff appreciate your assistance in clarifying documentation. Please respond to the clarification below the line at the bottom and electronically sign. The CDI & [facility] Coding staff will review the response and follow-up if needed. Please note: Queries are made part of the Legal Health Record. If you have any questions, please contact the author of this message via ITS. Dr. Livan Lowery CHF is documented in the Pulmonary Progress Notes: 10/03-10/04 History/Risk Factors: Asthma, CP, COPD, DM, GERD, Hyperlipidemia, Seizure Disorder, Vascular DIs, CKD Stage 3 Clinical Indicators: 10/03 Pulmonary Progress Notes: "There is bilateral consolidation and pleural effusions consistent with pneumonia and a component of CHF." 10/03 VS/Pulse OX: Temp 97.6, HR 69, RR 17, B/P 132/60, SPo2 94% 6l NC BNP: 2030 09/27 Echocardiogram Results: EF 60-65% 10/03 Chest X Ray: "Possible subsegmental atelectatic changes correlate to exclude pulmonary venous hypertension and interstitial edema. Small pleural effusions may be present" Treatment: Diamox 250mg IVP Q 12 hrs Several Doses of IVP 40mg Lasix, currently 40 mg IVP QD In your professional opinion, can you please clarify the acuity and type of CHF if known? Diastolic Heart Failure: Acute Chronic Acute on Chronic Systolic & Diastolic Heart Failure: Acute Chronic Acute on Chronic Heart Failure Unable to Determine Other, please specify (Last Revision: December 2017) MTDD
--- NOTE | 2018-10-05 12:42 | P.PN ---
<Aislinn Williamson Natty - Last Filed: 10/05/18 12:40> Subjective Progress Note Date: 10/05/18 CHIEF COMPLAINT: Abdominal pain HISTORY OF PRESENT ILLNESS: Patient examined at the bedside. She is awake and alert. Sitting in the chair. Tolerating clear liquid diet. Reports minimal abdominal pain. +BM this morning. PHYSICAL EXAM: VITAL SIGNS: Currently stable GENERAL: Well-developed in no acute distress HEENT: No sclera icterus. Extraocular movements grossly intact. Moist buccal mucosa. Head is atraumatic, normocephalic. No nasal drainage. NECK: Supple without lymphadenopathy. CHEST: Non-labored respirations and equal bilateral excursions. CARDIOVASCULAR: Irregular rhythm. Palpable 2+ radial pulses. ABDOMEN: Soft. Nondistended. MUSCULOSKELETAL: No clubbing, cyanosis or edema. NEUROLOGIC: No focal or lateralizing signs. Cranial nerves II through XII grossly intact. PSYCH: Awake and alert. SKIN: Well perfused. Good skin turgor. IMAGING: Per radiologist dictation: 1. X-ray abdomen: Nonacute abdomen. Numerous calcifications over the upper abdomen and right upper quadrant consistent with chronic pancreatitis 2. CT abdomen/pelvis: Wall thickening with induration of the pericolonic fat within the left pelvis correlate for colitis or mild diverticulitis. Wide mouth left-sided abdominal wall hernia. Small bilateral effusions and bilateral infiltrates. ASSESSMENT: 1. Abdominal pain, patient reported no bowel movement for 8 days, +BM yesterday , abdominal pain resolved 2. Wall thickening with induration of the pericolonic fat within the left pelvis correlate for colitis or mild diverticulitis per CT 3. History of chronic pancreatitis 4. History of cholecystectomy, many years ago per daughter 5. History of intrahepatic stones, requiring ERCP with stone retrieval and stent placement, last year per daughter 6. Hypotension 7. Afib with RVR 8. Known history of hernia x 2 per patient without obstruction PLAN: 1. Advance diet 2. No surgical intervention required Nurse practitioner note has been reviewed by physician. Signing provider agrees with the documented findings, assessment, and plan of care. Objective - Vital Signs Vital signs: Vital Signs Temp 96.9 F L 10/05/18 11:11 Pulse 89 10/05/18 08:00 Resp 20 10/05/18 11:11 BP 115/56 10/05/18 11:11 Pulse Ox 98 10/05/18 08:10 Intake & Output 10/04/18 10/05/18 10/05/18 18:59 06:59 18:59 Intake Total 1250 900 200 Output Total 945 1020 250 Balance 305 -120 -50 Weight 80.2 kg Intake: IV 1250 900 100 Piperacillin-Tazobactam 3 100 200 .375 gm In Sodium Chloride 0.9% 100 ml @ 25 mls/hr IVPB Q12H [facility] Rx# :[id number] Sodium Chloride 0.9% 1, 900 700 100 000 ml @ 100 mls/hr IV . Q10H [facility] Rx#:[id number] Vancomycin 1,250 mg In 250 Sodium Chloride 0.9% 250 ml @ 125 mls/hr IVPB Q48H [facility] Rx#:[id number] Intake, IV Titration 100 Amount Magnesium Sulfate-D5w Pmx 100 1 gm In Dextrose/Water 1 100ml.bag @ 100 mls/hr IVPB Q1H [facility] Rx#: [id number] Output: Urine 945 1020 250 Other: Voiding Method Indwelling Catheter Indwelling Catheter Indwelling Catheter # Bowel Movements 1 1 - Labs CBC & Chem 7: 10/05/18 04:33 10/05/18 04:33 Labs: Abnormal Lab Results - Last 24 Hours (Table) 10/04/18 10/04/18 10/04/18 Range/Units 14:16 17:14 20:49 RBC (3.80-5.40) m/uL Hgb (11.4-16.0) gm/dL Hct (34.0-46.0) % RDW (11.5-15.5) % Sodium (137-145) mmol/L Potassium 3.3 L (3.5-5.1) mmol/L Carbon Dioxide (22-30) mmol/L BUN (7-17) mg/dL Glucose (74-99) mg/dL POC Glucose (mg/dL) 206 H 336 H (75-99) mg/dL Calcium (8.4-10.2) mg/dL Phosphorus (2.5-4.5) mg/dL 10/05/18 10/05/18 10/05/18 Range/Units 04:33 04:33 07:00 RBC 3.23 L (3.80-5.40) m/uL Hgb 9.9 L (11.4-16.0) gm/dL Hct 30.3 L (34.0-46.0) % RDW 15.6 H (11.5-15.5) % Sodium 136 L (137-145) mmol/L Potassium (3.5-5.1) mmol/L Carbon Dioxide 32 H (22-30) mmol/L BUN 19 H (7-17) mg/dL Glucose 105 H (74-99) mg/dL POC Glucose (mg/dL) 67 L (75-99) mg/dL Calcium 8.0 L (8.4-10.2) mg/dL Phosphorus 1.8 L (2.5-4.5) mg/dL 10/05/18 Range/Units 11:09 RBC (3.80-5.40) m/uL Hgb (11.4-16.0) gm/dL Hct (34.0-46.0) % RDW (11.5-15.5) % Sodium (137-145) mmol/L Potassium (3.5-5.1) mmol/L Carbon Dioxide (22-30) mmol/L BUN (7-17) mg/dL Glucose (74-99) mg/dL POC Glucose (mg/dL) 173 H (75-99) mg/dL Calcium (8.4-10.2) mg/dL Phosphorus (2.5-4.5) mg/dL Microbiology - Last 24 Hours (Table) 10/03/18 01:06 Gram Stain - Final Ankle - Left Wound Culture - Final Stenotrophomonas maltophilia 10/03/18 00:39 Blood Culture - Preliminary Blood No Growth after 48 hours 10/03/18 00:25 Urine Culture - Final Urine,Catheterized Assessment and Plan (1) Abdominal pain Current Visit: Yes Status: Acute Code(s): R10.9 - UNSPECIFIED ABDOMINAL PAIN SNOMED Code(s): 18795436 (2) History of cholecystectomy Current Visit: Yes Status: Acute Code(s): Z90.49 - ACQUIRED ABSENCE OF OTHER SPECIFIED PARTS OF DIGESTIVE TRACT SNOMED Code(s): 321722217 (3) History of cholelithiasis Current Visit: Yes Status: Acute Code(s): Z87.19 - PERSONAL HISTORY OF OTHER DISEASES OF THE DIGESTIVE SYSTEM SNOMED Code(s): 197196762 (4) Chronic pancreatitis Current Visit: Yes Status: Acute Code(s): K86.1 - OTHER CHRONIC PANCREATITIS SNOMED Code(s): 404112644 (5) Atrial fibrillation Current Visit: Yes Status: Acute Code(s): I48.91 - UNSPECIFIED ATRIAL FIBRILLATION SNOMED Code(s): 76632507 (6) Atrial fibrillation with RVR Current Visit: No Status: Acute Code(s): I48.91 - UNSPECIFIED ATRIAL FIBRILLATION SNOMED Code(s): 289551410306233 <Ximena Hendrickson N - Last Filed: 10/05/18 16:49> Objective - Vital Signs Vital signs: Vital Signs Temp 97.1 F L 10/05/18 16:00 Pulse 80 10/05/18 16:00 Resp 18 10/05/18 16:00 BP 114/66 10/05/18 16:00 Pulse Ox 100 10/05/18 16:00 Intake & Output 10/04/18 10/05/18 10/05/18 18:59 06:59 18:59 Intake Total 1250 900 440 Output Total 945 1020 250 Balance 305 -120 190 Weight 80.2 kg 80.2 kg Intake: IV 1250 900 100 Piperacillin-Tazobactam 3 100 200 .375 gm In Sodium Chloride 0.9% 100 ml @ 25 mls/hr IVPB Q12H [facility] Rx# :[id number] Sodium Chloride 0.9% 1, 900 700 100 000 ml @ 100 mls/hr IV . Q10H [facility] Rx#:[id number] Vancomycin 1,250 mg In 250 Sodium Chloride 0.9% 250 ml @ 125 mls/hr IVPB Q48H [facility] Rx#:[id number] Intake, IV Titration 100 Amount Magnesium Sulfate-D5w Pmx 100 1 gm In Dextrose/Water 1 100ml.bag @ 100 mls/hr IVPB Q1H [facility] Rx#: [id number] Oral 240 Output: Urine 945 1020 250 Other: Voiding Method Indwelling Catheter Indwelling Catheter Indwelling Catheter # Bowel Movements 1 1 - Labs CBC & Chem 7: 10/05/18 04:33 10/05/18 04:33 Labs: Abnormal Lab Results - Last 24 Hours (Table) 10/04/18 10/04/18 10/05/18 Range/Units 17:14 20:49 04:33 RBC 3.23 L (3.80-5.40) m/uL Hgb 9.9 L (11.4-16.0) gm/dL Hct 30.3 L (34.0-46.0) % RDW 15.6 H (11.5-15.5) % Sodium (137-145) mmol/L Carbon Dioxide (22-30) mmol/L BUN (7-17) mg/dL Glucose (74-99) mg/dL POC Glucose (mg/dL) 206 H 336 H (75-99) mg/dL Calcium (8.4-10.2) mg/dL Phosphorus (2.5-4.5) mg/dL 10/05/18 10/05/18 10/05/18 Range/Units 04:33 07:00 11:09 RBC (3.80-5.40) m/uL Hgb (11.4-16.0) gm/dL Hct (34.0-46.0) % RDW (11.5-15.5) % Sodium 136 L (137-145) mmol/L Carbon Dioxide 32 H (22-30) mmol/L BUN 19 H (7-17) mg/dL Glucose 105 H (74-99) mg/dL POC Glucose (mg/dL) 67 L 173 H (75-99) mg/dL Calcium 8.0 L (8.4-10.2) mg/dL Phosphorus 1.8 L (2.5-4.5) mg/dL 10/05/18 Range/Units 16:25 RBC (3.80-5.40) m/uL Hgb (11.4-16.0) gm/dL Hct (34.0-46.0) % RDW (11.5-15.5) % Sodium (137-145) mmol/L Carbon Dioxide (22-30) mmol/L BUN (7-17) mg/dL Glucose (74-99) mg/dL POC Glucose (mg/dL) 275 H (75-99) mg/dL Calcium (8.4-10.2) mg/dL Phosphorus (2.5-4.5) mg/dL Microbiology - Last 24 Hours (Table) 10/03/18 01:06 Gram Stain - Final Ankle - Left Wound Culture - Final Stenotrophomonas maltophilia 10/03/18 00:39 Blood Culture - Preliminary Blood No Growth after 48 hours Assessment and Plan Plan: Patient seen and evaluated. Patient doing much better. She is having bowel movements. No surgical intervention per patient. Patient is clinically stable.
[2018-10-05] MEDS: SULFAMETHOX-TMP 800-160MG 1 EACH TAB PO SCH (13:44)
[2018-10-05 14:26] VITALS: BMI 32.3
[2018-10-05 16:38] LABS: Glucose,Whole Blood 275 mg/dL (75-99)
[2018-10-05 21:15] LABS: Glucose,Whole Blood 216 mg/dL (75-99)
[2018-10-05] MEDS: INSULIN DETEMIR 100 UNIT/ML 10 ML VIAL SQ SCH (21:37)
--- NOTE | 2018-10-05 23:03 | PN ---
PROGRESS NOTE DATE OF SERVICE: 10/05/2018 REASON FOR FOLLOWUP: 1. Colitis, possibly ischemic. 2. Left foot wound. INTERVAL HISTORY: The patient is currently afebrile. She has been breathing comfortably. Denies having any chest pain or shortness of breath. Occasional cough. Does have some pain to the left lower abdominal area but no worsening. Denies having any diarrhea. PHYSICAL EXAMINATION: Blood pressure is 114/66, pulse of 80, temperature 97.1. She is 100% on 2 L nasal cannula. General description is an elderly female up in the chair in no distress. RESPIRATORY SYSTEM: Unlabored breathing. Clear to auscultation anteriorly. CARDIOVASCULAR: S1, S2. Regular rate and rhythm. ABDOMEN: Soft, non-tender. Left toe wound is currently dressed up. No obvious drainage on the dressing. LABS: Hemoglobin is 9.9, white count 7.9. BUN of 19, creatinine 0.62. The left medial foot wound with stenotrophomonas. Blood cultures have been negative. DIAGNOSTIC IMPRESSION AND PLAN: 1. Patient with an episode of sepsis. Source is likely ischemic colitis. Patient is currently being treated medically on Zosyn; to continue for now. 2. Patient with a left foot wound, culture positive for stenotrophomonas. Bactrim DS will be added. Continue with local care with Santyl. Keep the area off pressure. MMODL / IJN: [id number] /
--- NOTE | 2018-10-05 23:06 | PN ---
PROGRESS NOTE DATE OF SERVICE: October 05, 2018. PRESENT COMPLAINT: Tired. INTERVAL HISTORY: This patient initially was admitted with atrial fibrillation with rapid ventricular rate and then was moved to the ICU after patient became hypotensive with rapid ventricular rate. Also was having abdominal pain. Vent on 2 pressors. The patient also felt to have underlying colitis. The patient did tolerate a clear liquid diet. Very slight abdominal pain. The right arm has been in sling. REVIEW OF SYSTEMS: Done for constitutional, cardiovascular, GI, pulmonary; relevant findings as above. CURRENT MEDICATIONS: Reviewed that include p.o. Cordarone, Lovenox subcu, p.o. Lasix, IV Zosyn, IV vancomycin. PHYSICAL EXAMINATION: VITAL SIGNS: Temperature 97.1, pulse 80, respiratory 18, blood pressure 114/66, pulse ox 100 percent on 2 L. GENERAL APPEARANCE: Lying in bed, awake, more awake. EYES: Pupils equal. Conjunctivae normal. NECK: JVD not raised. Mass not palpable. RESPIRATORY: Effort normal. LUNGS: Fair air entry. CARDIOVASCULAR: Heart sounds irregular. Minimal edema. ABDOMEN: Soft. Minimal tenderness. Liver and spleen not palpable. PSYCHIATRY: Awake, answering questions appropriately. Right arm in a sling. INVESTIGATIONS: White count 7.9, hemoglobin 9.9, potassium 3.9, BUN 19, creatinine 0.62. ASSESSMENT: 1. Persistent atrial fibrillation rapid ventricular rate on presentation. 2. Acute colitis could be ischemic. 3. Diabetes mellitus type 2, chronically on insulin. 4. Peripheral artery disease. 5. Coronary artery disease. 6. Hyperlipidemia. 7. Essential hypertension. 8. Primary osteoarthritis. 9. Peripheral neuropathy. 10.Chronic wound on the left, ball of the left big toe, not infected Shanna's grade 2. 11.Stage II left heel pressure ulcer present on admission. 12.Right humeral neck fracture with chronic pain, right arm in a sling. 13.Medical debility uses a walker at bedside. 14.Chronic congestive heart failure exacerbation from systolic dysfunction ejection fraction 35-40 percent. 15.Moderate mitral regurgitation, nonrheumatic. 16.Moderate aortic valve sclerosis. PLAN: Continue current medication and treatment plan. The patient is doing somewhat better. Appears to be more relaxed. Diet was advanced today. MMODL / IJN: [id number] /
[2018-10-06 06:06] LABS: Glucose,Whole Blood 123 mg/dL (75-99)
[2018-10-06] MEDS: MENTHOL-ZINC OXIDE OINT 113 GM TUBE TOPICAL SCH ×3 (06:16→21:30)
[2018-10-06] MEDS: SULFAMETHOX-TMP 800-160MG 1 EACH TAB PO SCH ×3 (06:16→21:29)
[2018-10-06] MEDS: TROSPIUM CHLORIDE 20 MG TABLET PO SCH ×2 (06:17→21:29)
[2018-10-06] MEDS: SODIUM CHLORIDE 0.9% 1,000 ML IV SCH ×2 (06:22→12:50)
[2018-10-06] MEDS: PANTOPRAZOLE 40 MG TABLET PO SCH (06:25)
[2018-10-06] MEDS: PIPERACILLIN-TAZOBACTAM 3.375 GM in SODIUM CHLORIDE 0.9% 100 ML IVPB SCH ×3 (06:25→21:30)
[2018-10-06] MEDS: INSULIN ASPART 100 UNIT/ML 1 ML 10 ML VIAL SQ SCH ×4 (07:50→21:30)
[2018-10-06] MEDS ORDERED: VANCOMYCIN TROUGH DUE 1 EACH MISC MISCELLANE ONE (09:00)
[2018-10-06] MEDS: AMIODARONE 200 MG TAB PO SCH ×2 (09:19→21:29)
[2018-10-06] MEDS: GABAPENTIN 100 MG CAP PO SCH ×3 (09:19→21:28)
[2018-10-06] MEDS: OXYBUTYNIN CHLORIDE 5 MG TAB PO SCH ×2 (09:20→21:29)
[2018-10-06] MEDS: FUROSEMIDE 40 MG TAB PO SCH ×2 (09:20→16:07)
[2018-10-06] MEDS: LISINOPRIL-HCTZ 20-25 MG 1 EACH TAB PO SCH (09:21)
[2018-10-06] MEDS: MAGNESIUM OXIDE 400 MG TAB PO SCH ×2 (09:21→21:28)
[2018-10-06] MEDS: THIAMINE 100 MG TAB PO SCH (09:21)
[2018-10-06] MEDS: METOPROLOL TARTRATE 50 MG TAB PO SCH ×2 (09:21→21:28)
[2018-10-06] MEDS: SERTRALINE 25 MG TAB PO SCH (09:22)
[2018-10-06] MEDS: DICLOFENAC SODIUM GEL 100 GM TUBE TOPICAL SCH ×4 (09:23→22:32)
[2018-10-06] MEDS: COLLAGENASE 250 UNIT/GM OINTMENT 30 GM TUBE TOPICAL SCH (09:24)
[2018-10-06] MEDS: ASPIRIN 81 MG PO SCH (09:29)
[2018-10-06 09:33] LABS: HCT 33.7 % (34.0-46.0); HGB 10.7 gm/dL (11.4-16.0); MCHC 31.8 g/dL (31.0-37.0); MCV 94.6 fL (80.0-100.0); Mean Platelet Volume 6.6; Platelet Count 274 k/uL (150-450); RBC 3.57 m/uL (3.80-5.40); RDW 15.6 % (11.5-15.5); WBC 7.1 k/uL (3.8-10.6)
--- NOTE | 2018-10-06 09:47 | P.PN ---
<Aislinn Williamson - Last Filed: 10/06/18 09:45> Subjective Progress Note Date: 10/06/18 CHIEF COMPLAINT: Abdominal pain HISTORY OF PRESENT ILLNESS: Patient examined at the bedside. She is awake and alert. Sitting in the chair. Tolerating PO intake. She is eating oatmeal and eggs this morning. Denies abdominal pain. Patient passing flatus and having BMs. PHYSICAL EXAM: VITAL SIGNS: Currently stable GENERAL: Well-developed in no acute distress HEENT: No sclera icterus. Extraocular movements grossly intact. Moist buccal mucosa. Head is atraumatic, normocephalic. No nasal drainage. NECK: Supple without lymphadenopathy. CHEST: Non-labored respirations and equal bilateral excursions. CARDIOVASCULAR: Irregular rhythm. Palpable 2+ radial pulses. ABDOMEN: Soft. Nondistended. MUSCULOSKELETAL: No clubbing, cyanosis or edema. NEUROLOGIC: No focal or lateralizing signs. Cranial nerves II through XII grossly intact. PSYCH: Awake and alert. SKIN: Well perfused. Good skin turgor. IMAGING: Per radiologist dictation: 1. X-ray abdomen: Nonacute abdomen. Numerous calcifications over the upper abdomen and right upper quadrant consistent with chronic pancreatitis 2. CT abdomen/pelvis: Wall thickening with induration of the pericolonic fat within the left pelvis correlate for colitis or mild diverticulitis. Wide mouth left-sided abdominal wall hernia. Small bilateral effusions and bilateral infiltrates. ASSESSMENT: 1. Abdominal pain, patient reported no bowel movement for 8 days, +BM yesterday , abdominal pain resolved 2. Wall thickening with induration of the pericolonic fat within the left pelvis correlate for colitis or mild diverticulitis per CT 3. History of chronic pancreatitis 4. History of cholecystectomy, many years ago per daughter 5. History of intrahepatic stones, requiring ERCP with stone retrieval and stent placement, last year per daughter 6. Hypotension 7. Afib with RVR 8. Known history of hernia x 2 per patient without obstruction PLAN: Patient is tolerating diet. Abdominal pain has resolved. We will sign off. Please re-consult if needed. Nurse practitioner note has been reviewed by physician. Signing provider agrees with the documented findings, assessment, and plan of care. Objective - Vital Signs Vital signs: Vital Signs Temp 98.2 F 10/06/18 08:20 Pulse 85 10/06/18 08:20 Resp 18 10/06/18 08:20 BP 132/70 10/06/18 08:20 Pulse Ox 100 10/06/18 04:00 Intake & Output 10/05/18 10/06/18 10/06/18 18:59 06:59 18:59 Intake Total 440 120 Output Total 250 1900 Balance 190 -1780 Weight 80.2 kg 79.5 kg Intake: IV 100 Sodium Chloride 0.9% 1, 100 000 ml @ 100 mls/hr IV . Q10H KEVEN Rx#:[id number] Intake, IV Titration 100 Amount Magnesium Sulfate-D5w Pmx 100 1 gm In Dextrose/Water 1 100ml.bag @ 100 mls/hr IVPB Q1H KEVEN Rx#: [id number] Oral 240 120 Output: Urine 250 1900 Other: Voiding Method Indwelling Catheter Bedside Commode # Voids 1 # Bowel Movements 1 - Labs CBC & Chem 7: 10/06/18 09:14 10/05/18 04:33 Labs: Abnormal Lab Results - Last 24 Hours (Table) 10/05/18 10/05/18 10/05/18 Range/Units 11:09 16:25 21:14 RBC (3.80-5.40) m/uL Hgb (11.4-16.0) gm/dL Hct (34.0-46.0) % RDW (11.5-15.5) % POC Glucose (mg/dL) 173 H 275 H 216 H (75-99) mg/dL 10/06/18 10/06/18 Range/Units 05:55 09:14 RBC 3.57 L (3.80-5.40) m/uL Hgb 10.7 L (11.4-16.0) gm/dL Hct 33.7 L (34.0-46.0) % RDW 15.6 H (11.5-15.5) % POC Glucose (mg/dL) 123 H (75-99) mg/dL Microbiology - Last 24 Hours (Table) 10/03/18 00:39 Blood Culture - Preliminary Blood No Growth after 72 hours 10/03/18 01:06 Gram Stain - Final Ankle - Left Wound Culture - Final Stenotrophomonas maltophilia Assessment and Plan (1) Abdominal pain Current Visit: Yes Status: Acute Code(s): R10.9 - UNSPECIFIED ABDOMINAL PAIN SNOMED Code(s): 23481252 (2) History of cholecystectomy Current Visit: Yes Status: Acute Code(s): Z90.49 - ACQUIRED ABSENCE OF OTHER SPECIFIED PARTS OF DIGESTIVE TRACT SNOMED Code(s): 498366559 (3) History of cholelithiasis Current Visit: Yes Status: Acute Code(s): Z87.19 - PERSONAL HISTORY OF OTHER DISEASES OF THE DIGESTIVE SYSTEM SNOMED Code(s): 168313428 (4) Chronic pancreatitis Current Visit: Yes Status: Acute Code(s): K86.1 - OTHER CHRONIC PANCREATITIS SNOMED Code(s): 584876512 (5) Atrial fibrillation Current Visit: Yes Status: Acute Code(s): I48.91 - UNSPECIFIED ATRIAL FIBRILLATION SNOMED Code(s): 82686143 (6) Atrial fibrillation with RVR Current Visit: No Status: Acute Code(s): I48.91 - UNSPECIFIED ATRIAL FIBRILLATION SNOMED Code(s): 242862649811314 <Ximena Hendrickson N - Last Filed: 10/08/18 12:18> Objective - Vital Signs Vital signs: Vital Signs Temp 97.4 F L 10/08/18 07:48 Pulse 68 10/08/18 07:48 Resp 16 10/08/18 07:48 BP 106/63 10/08/18 07:48 Pulse Ox 100 10/08/18 07:48 Intake & Output 10/07/18 10/08/18 10/08/18 18:59 06:59 18:59 Intake Total 720 100 Output Total 900 Balance -180 100 Weight 75.7 kg Intake: Oral 720 100 Output: Urine 900 Other: Voiding Method Bedside Commode # Voids 1 - Labs CBC & Chem 7: 10/07/18 06:32 10/07/18 06:32 Labs: Abnormal Lab Results - Last 24 Hours (Table) 10/07/18 10/07/18 10/08/18 Range/Units 17:04 19:53 06:12 POC Glucose (mg/dL) 190 H 289 H 160 H (75-99) mg/dL 10/08/18 Range/Units 10:50 POC Glucose (mg/dL) 235 H (75-99) mg/dL Microbiology - Last 24 Hours (Table) 10/03/18 00:39 Blood Culture - Preliminary Blood No Growth after 120 hours Assessment and Plan Plan: Patient may follow-up as outpatient. No acute surgical intervention needed. Please re-consult if needed.
[2018-10-06 10:03] LABS: Anion Gap 3 mmol/L; Blood Urea Nitrogen 14 mg/dL (7-17); Calcium 8.6 mg/dL (8.4-10.2); Carbon Dioxide 33 mmol/L (22-30); Chloride 101 mmol/L (98-107); Glucose 116 mg/dL (74-99); Magnesium 1.7 mg/dL (1.6-2.3); Phosphorus 2.5 mg/dL (2.5-4.5); Potassium 4.7 mmol/L (3.5-5.1); Sodium 137 mmol/L (137-145)
[2018-10-06 11:23] LABS: Glucose,Whole Blood 145 mg/dL (75-99)
[2018-10-06] MEDS: traMADol 50 MG TAB PO PRN (11:44)
--- NOTE | 2018-10-06 14:34 | P.PN ---
Subjective Progress Note Date: 10/06/18 Principal diagnosis: Atrial fibrillation with rapid ventricular response This is a pleasant 83-year-old female patient with a past medical history significant for coronary artery disease, chronic atrial fibrillation, not on any oral anticoagulation, as well as multiple comorbid conditions, was admitted to the hospital was atrial fibrillation with rapid ventricular response. Please note that the patient fell a few weeks ago and fractured her left arm. She underwent an echocardiogram which revealed impaired LV function was EF around 35% with moderate MR. There was also mild aortic stenosis. On follow-up with the patient today, October 062018, the patient continues to be in atrial fibrillation was controlled heart rate. Currently she is on amiodarone by mouth as well as metoprolol by mouth. She is not on any oral anticoagulation because of her history of falling and bleeding. The patient was transferred out of the ICU yesterday. Objective - Vital Signs Vital signs: Vital Signs Temp 97.3 F L 10/06/18 12:15 Pulse 69 10/06/18 12:15 Resp 18 10/06/18 12:15 BP 119/58 10/06/18 12:15 Pulse Ox 100 10/06/18 12:15 Intake & Output 10/05/18 10/06/18 10/06/18 18:59 06:59 18:59 Intake Total 440 120 Output Total 250 1900 Balance 190 -1780 Weight 80.2 kg 79.5 kg Intake: IV 100 Sodium Chloride 0.9% 1, 100 000 ml @ 100 mls/hr IV . Q10H KEVEN Rx#:[id number] Intake, IV Titration 100 Amount Magnesium Sulfate-D5w Pmx 100 1 gm In Dextrose/Water 1 100ml.bag @ 100 mls/hr IVPB Q1H KEVEN Rx#: [id number] Oral 240 120 Output: Urine 250 1900 Other: Voiding Method Indwelling Catheter Bedside Commode # Voids 1 # Bowel Movements 1 - Constitutional General appearance: Present: no acute distress - Respiratory Respiratory: bilateral: CTA - Cardiovascular Rhythm: irregularly irregular Heart sounds: normal: S1, S2 - Labs CBC & Chem 7: 10/06/18 09:14 10/06/18 09:14 Labs: Abnormal Lab Results - Last 24 Hours (Table) 10/05/18 10/05/18 10/06/18 Range/Units 16:25 21:14 05:55 RBC (3.80-5.40) m/uL Hgb (11.4-16.0) gm/dL Hct (34.0-46.0) % RDW (11.5-15.5) % Carbon Dioxide (22-30) mmol/L Glucose (74-99) mg/dL POC Glucose (mg/dL) 275 H 216 H 123 H (75-99) mg/dL 10/06/18 10/06/18 10/06/18 Range/Units 09:14 09:14 11:18 RBC 3.57 L (3.80-5.40) m/uL Hgb 10.7 L (11.4-16.0) gm/dL Hct 33.7 L (34.0-46.0) % RDW 15.6 H (11.5-15.5) % Carbon Dioxide 33 H (22-30) mmol/L Glucose 116 H (74-99) mg/dL POC Glucose (mg/dL) 145 H (75-99) mg/dL Microbiology - Last 24 Hours (Table) 10/03/18 00:39 Blood Culture - Preliminary Blood No Growth after 72 hours 10/03/18 01:06 Gram Stain - Final Ankle - Left Wound Culture - Final Stenotrophomonas maltophilia Assessment and Plan Assessment: Assessment #1 atrial fibrillation with rapid ventricular response #2 known chronic persistent atrial fibrillation #3 coronary artery disease #4 ischemic cardiomyopathy #5 multiple comorbid conditions Plan #1 continue the current dose of metoprolol at 400 mg by mouth twice a day #2 continue the current dose of metoprolol unless you are and able to wean her from the levophed #3 continue holding anticoagulation. #4 follow-up with the patient
[2018-10-06 16:23] LABS: Glucose,Whole Blood 117 mg/dL (75-99)
[2018-10-06] MEDS: SENNOSIDES-DOCUSATE SODIUM 1 EACH TAB PO PRN (19:04)
[2018-10-06 21:01] LABS: Glucose,Whole Blood 211 mg/dL (75-99)
[2018-10-06] MEDS: ENOXAPARIN 40 MG/0.4 ML SYRINGE SQ SCH (21:29)
[2018-10-06] MEDS: INSULIN DETEMIR 100 UNIT/ML 10 ML VIAL SQ SCH (21:29)
--- NOTE | 2018-10-06 22:28 | PN ---
PROGRESS NOTE DATE OF SERVICE: 10/06/2018 REASON FOR FOLLOWUP: 1. Colitis, possibly ischemic. 2. Left foot wound. INTERVAL HISTORY: The patient is currently afebrile. She is breathing comfortably. Denies having any chest pain or shortness of breath or cough. No abdominal pain or any diarrhea. PHYSICAL EXAMINATION: Blood pressure is 98/45 with a pulse of 60, temperature of 98. She is 100% on 2 L nasal cannula. General description is an elderly female lying in bed in no distress. RESPIRATORY SYSTEM: Unlabored breathing. Decreased breath sounds in the bases. No wheeze. HEART: S1, S2. Regular rate and rhythm. ABDOMEN: Soft. No tenderness. Left foot is currently dressed up. No obvious drainage on the dressing. LABS: Hemoglobin is 10.7, white count 7.1 with a BUN of 14, creatinine 0.64. DIAGNOSTIC IMPRESSION AND PLAN: 1. Patient with an episode of sepsis with evidence of colitis, possibly ischemic. Patient is currently covered with Zosyn, to continue for now. 2. Left foot wound; culture positive for methicillin-resistant Staphylococcus aeruginosa superficial culture with a question Continue with Santyl and the oral Bactrim DS. Continue with supportive care. MMODL / IJN: [id number] /
--- NOTE | 2018-10-06 22:55 | PN ---
PROGRESS NOTE DATE OF SERVICE: 10/06/2018 PRESENTING COMPLAINT: Tired. INTERVAL HISTORY: This patient was admitted with atrial fibrillation with rapid ventricular rate. She was moved to the ICU after she became hypotensive with rapid ventricular rate. She was also found to have colitis. Patient is now doing better, back on the medical floor. Tolerating a diet, has been advanced yesterday. Ate better. Abdominal pain is improved. REVIEW OF SYSTEMS: Done for constitutional, cardiovascular, GI, pulmonary; relevant findings as above. CURRENT MEDICATIONS: Reviewed. They include IV Zosyn. PHYSICAL EXAMINATION: Temperature 98, pulse 63, respiration 18, blood pressure 98/45, pulse ox 100% on 2 L. GENERAL APPEARANCE: Lying in bed, more comfortable. EYES: Pupils equal. Conjunctivae normal. NECK: JVD not raised. Mass not palpable. RESPIRATORY: Effort normal. LUNGS: Fair air entry. CARDIOVASCULAR: Heart sounds irregular. No edema. ABDOMEN: Soft, nontender. Liver and spleen not palpable. PSYCHIATRY: Alert, oriented x3. Mood and affect normal. EXTREMITIES: Right arm in a sling. INVESTIGATIONS: White count 7.1, hemoglobin 10.7, potassium 4.7. ASSESSMENT: 1. Persistent atrial fibrillation rapid ventricular rate on presentation, now better controlled. 2. Acute colitis, probably ischemic. 3. Diabetes mellitus, type 2, chronically on insulin. 4. Peripheral artery disease. 5. Coronary artery disease. 6. Hyperlipidemia. 7. Essential hypertension. 8. Primary osteoarthritis. 9. Peripheral neuropathy. 10.Chronic wound on the left wall of the left big toe, not infected, Shanna's grade 2. 11.Stage II left heel pressure ulcer, present on admission. 12.Right humeral neck fracture with chronic pain. Right arm in a sling. 13.Medical debility. Uses a walker at the bedside. 14.Chronic congestive heart failure exacerbation from systolic dysfunction, ejection fraction 35% to 40%. 15.Moderate mitral regurgitation, non-rheumatic. 16.Moderate aortic valve sclerosis. PLAN: Patient continues to improve slowly. Continue current medication and treatment plan. Patient should be able to be switched over to hopefully oral antibiotics. Will probably discharge the patient to the [facility] tomorrow after discussion with Dr. Cortez from ID. MMODL / IJN: [id number] /
[2018-10-06] MEDS: ACETAMINOPHEN TAB 325 MG TAB PO PRN (23:59)
[2018-10-07] MEDS: PIPERACILLIN-TAZOBACTAM 3.375 GM in SODIUM CHLORIDE 0.9% 100 ML IVPB SCH ×3 (04:24→21:32)
[2018-10-07 06:58] LABS: Glucose,Whole Blood 167 mg/dL (75-99)
[2018-10-07] MEDS: ACETAMINOPHEN TAB 325 MG TAB PO PRN ×2 (06:58→21:50)
[2018-10-07] MEDS: INSULIN ASPART 100 UNIT/ML 1 ML 10 ML VIAL SQ SCH ×4 (06:59→21:51)
[2018-10-07] MEDS: PANTOPRAZOLE 40 MG TABLET PO SCH (06:59)
[2018-10-07 07:15] LABS: HCT 31.7 % (34.0-46.0); HGB 10.4 gm/dL (11.4-16.0); MCH 30.6 pg (25.0-35.0); Mean Platelet Volume 6.6; Platelet Count 254 k/uL (150-450); RBC 3.41 m/uL (3.80-5.40); RDW 15.7 % (11.5-15.5); WBC 5.5 k/uL (3.8-10.6)
[2018-10-07 07:53] LABS: Calcium 8.9 mg/dL (8.4-10.2); Magnesium 1.6 mg/dL (1.6-2.3); Potassium 4.2 mmol/L (3.5-5.1)
[2018-10-07] MEDS: GABAPENTIN 100 MG CAP PO SCH ×3 (09:13→21:50)
[2018-10-07] MEDS: LISINOPRIL-HCTZ 20-25 MG 1 EACH TAB PO SCH (09:13)
[2018-10-07] MEDS: THIAMINE 100 MG TAB PO SCH (09:13)
[2018-10-07] MEDS: ERGOCALCIFEROL 50,000 UNIT CAP PO SCH (09:13)
[2018-10-07] MEDS: SULFAMETHOX-TMP 800-160MG 1 EACH TAB PO SCH ×2 (09:13→23:23)
[2018-10-07] MEDS: METOPROLOL TARTRATE 50 MG TAB PO SCH ×2 (09:13→21:50)
[2018-10-07] MEDS: SERTRALINE 25 MG TAB PO SCH (09:13)
[2018-10-07] MEDS: AMIODARONE 200 MG TAB PO SCH ×2 (09:13→21:50)
[2018-10-07] MEDS: DICLOFENAC SODIUM GEL 100 GM TUBE TOPICAL SCH ×4 (09:14→21:52)
[2018-10-07] MEDS: FUROSEMIDE 40 MG TAB PO SCH ×2 (09:14→21:13)
[2018-10-07] MEDS: MAGNESIUM OXIDE 400 MG TAB PO SCH ×2 (09:14→21:50)
[2018-10-07] MEDS: OXYBUTYNIN CHLORIDE 5 MG TAB PO SCH ×2 (09:14→21:50)
[2018-10-07] MEDS: ASPIRIN 81 MG PO SCH (09:14)
[2018-10-07] MEDS: COLLAGENASE 250 UNIT/GM OINTMENT 30 GM TUBE TOPICAL SCH (09:15)
[2018-10-07] MEDS: MENTHOL-ZINC OXIDE OINT 113 GM TUBE TOPICAL SCH ×2 (09:15→21:52)
[2018-10-07 11:17] LABS: Glucose,Whole Blood 183 mg/dL (75-99)
--- NOTE | 2018-10-07 11:54 | P.PN ---
Subjective Progress Note Date: 10/07/18 Principal diagnosis: Atrial fibrillation with rapid ventricular response This is a pleasant 83-year-old female patient with a past medical history significant for coronary artery disease, chronic atrial fibrillation, not on any oral anticoagulation, as well as multiple comorbid conditions, was admitted to the hospital was atrial fibrillation with rapid ventricular response. Please note that the patient fell a few weeks ago and fractured her left arm. She underwent an echocardiogram which revealed impaired LV function was EF around 35% with moderate MR. There was also mild aortic stenosis. On follow-up with the patient today, October 072018, the patient continues to be in atrial fibrillation was controlled heart rate. Currently she is on amiodarone by mouth as well as metoprolol by mouth. She is not on any oral anticoagulation because of her history of falling and bleeding. The patient can be discharged home Objective - Vital Signs Vital signs: Vital Signs Temp 97.5 F L 10/07/18 07:56 Pulse 69 10/07/18 07:56 Resp 16 10/07/18 07:56 BP 94/60 10/07/18 07:56 Pulse Ox 96 10/07/18 07:56 Intake & Output 10/06/18 10/07/18 10/07/18 18:59 06:59 18:59 Intake Total 240 Output Total 1700 1800 900 Balance -1700 -1800 -660 Weight 78.5 kg Intake: Oral 240 Output: Urine 1700 1800 900 Other: Voiding Method Bedside Commode # Voids 1 - Constitutional General appearance: Present: no acute distress - Respiratory Respiratory: bilateral: diminished - Cardiovascular Rhythm: irregularly irregular Heart sounds: normal: S1, S2 - Labs CBC & Chem 7: 10/07/18 06:32 10/07/18 06:32 Labs: Abnormal Lab Results - Last 24 Hours (Table) 10/06/18 10/06/18 10/06/18 Range/Units 11:18 16:19 21:00 RBC (3.80-5.40) m/uL Hgb (11.4-16.0) gm/dL Hct (34.0-46.0) % RDW (11.5-15.5) % Sodium (137-145) mmol/L Chloride (98-107) mmol/L Carbon Dioxide (22-30) mmol/L Glucose (74-99) mg/dL POC Glucose (mg/dL) 145 H 117 H 211 H (75-99) mg/dL 10/07/18 10/07/18 10/07/18 Range/Units 06:32 06:32 06:45 RBC 3.41 L (3.80-5.40) m/uL Hgb 10.4 L (11.4-16.0) gm/dL Hct 31.7 L (34.0-46.0) % RDW 15.7 H (11.5-15.5) % Sodium 135 L (137-145) mmol/L Chloride 96 L (98-107) mmol/L Carbon Dioxide 35 H (22-30) mmol/L Glucose 169 H (74-99) mg/dL POC Glucose (mg/dL) 167 H (75-99) mg/dL Microbiology - Last 24 Hours (Table) 10/03/18 00:39 Blood Culture - Preliminary Blood No Growth after 96 hours Assessment and Plan Assessment: Assessment #1 atrial fibrillation with rapid ventricular response #2 known chronic persistent atrial fibrillation #3 coronary artery disease #4 ischemic cardiomyopathy #5 multiple comorbid conditions Plan #1 continue the current dose of amiodarone #2 continue the current dose of metoprolol #3 continue holding anticoagulation. #4 the patient can be discharged home
[2018-10-07 18:47] LABS: Glucose,Whole Blood 190 mg/dL (75-99)
[2018-10-07 19:54] LABS: Glucose,Whole Blood 289 mg/dL (75-99)
--- NOTE | 2018-10-07 20:29 | PN ---
PROGRESS NOTE DATE OF SERVICE: 10/07/2018 PRESENTING COMPLAINT: Tired. INTERVAL HISTORY: Patient admitted with atrial fibrillation with rapid ventricular rate, went to the ICU for becoming hypertensive with rapid ventricular rate. Also developed acute colitis for which she is on antibiotics. Doing better. No abdominal pain. Had a small bowel movement. Tolerating a diet. Overall feeling better. REVIEW OF SYSTEMS: Done for constitutional, cardiovascular, GI, pulmonary; relevant findings as above. CURRENT MEDICATIONS: Reviewed that include IV Zosyn. PHYSICAL EXAMINATION: VITAL SIGNS: Temperature 97.5, pulse 59, respiration 16, blood pressure 94/60, pulse ox 96% on 2 L. GENERAL APPEARANCE: Sitting up, more comfortable. EYES: Pupils equal. Conjunctivae normal. NECK: JVD not raised. Mass not palpable. RESPIRATORY: Effort normal. LUNGS are clear. CARDIOVASCULAR: Heart sounds irregular. No edema. ABDOMEN: Soft, nontender. Liver and spleen not palpable. PSYCHIATRY: Alert and oriented times three. Mood and affect normal. EXTREMITIES: Right arm in a sling. INVESTIGATIONS: Telemetry reviewed. Heart rate, atrial fibrillation with controlled. White count 5.5, hemoglobin 10.4, potassium 4.2, creatinine 0.9. Accu-Cheks are noted. ASSESSMENT: 1. Persistent atrial fibrillation rapid ventricular rate on presentation, now controlled. 2. Acute ischemic colitis with clinical improvement. 3. Diabetes mellitus type 2, chronically on insulin. 4. Peripheral artery disease. 5. Coronary artery disease. 6. Hyperlipidemia. 7. Essential hypertension. 8. Primary osteoarthritis. 9. Peripheral neuropathy. 10.Chronic wound on the left big toe, not infected, Toñito's grade 2. 11.Stage II left heel pressure ulcer, present on admission. 12.Right humeral neck fracture with chronic pain, right arm in a sling. 13.Medical debility, uses a walker at the bedside. 14.Chronic congestive heart failure from systolic dysfunction EF 35-40 percent. 15.Moderate mitral regurgitation, nonrheumatic. 16.Moderate aortic valve sclerosis. PLAN: The patient will be switched over to oral Augmentin. The patient is supposed to go to the [facility] today. The computer system is down. Hence paperwork could not be done. MMODL / IJN: [id number] /
[2018-10-07] MEDS: TROSPIUM CHLORIDE 20 MG TABLET PO SCH (21:50)
[2018-10-07] MEDS: SENNOSIDES-DOCUSATE SODIUM 1 EACH TAB PO PRN (21:51)
[2018-10-07] MEDS: AMOXIC-POT CLAV 875-125MG 1 EACH TAB PO SCH (21:51)
[2018-10-07] MEDS: ENOXAPARIN 40 MG/0.4 ML SYRINGE SQ SCH (21:51)
[2018-10-07] MEDS: INSULIN DETEMIR 100 UNIT/ML 10 ML VIAL SQ SCH (23:23)
[2018-10-08 06:13] LABS: Glucose,Whole Blood 160 mg/dL (75-99)
[2018-10-08] MEDS: traMADol 50 MG TAB PO PRN ×3 (06:33→21:34)
[2018-10-08] MEDS: INSULIN ASPART 100 UNIT/ML 1 ML 10 ML VIAL SQ SCH ×4 (06:34→21:35)
[2018-10-08] MEDS: PANTOPRAZOLE 40 MG TABLET PO SCH (06:34)
--- NOTE | 2018-10-08 07:22 | PN ---
PROGRESS NOTE DATE OF SERVICE: 10/07/2018 REASON FOR FOLLOW UP: 1. Colitis, possibly ischemic. 2. Left foot wound. INTERVAL HISTORY: The patient is currently afebrile. She is breathing comfortably. Abdominal pain has improved. Denies any further diarrhea. No nausea, no vomiting. Denies pain to the left foot area. PHYSICAL EXAMINATION: Blood pressure is 111/57, pulse of 75, temperature is 97.1 she is 100% on 2 L nasal cannula. GENERAL DESCRIPTION: An elderly female lying in bed in no distress. RESPIRATORY SYSTEM: Unlabored breathing, clear to auscultation anteriorly. HEART: S1, S2. Regular rate and rhythm. ABDOMEN: Soft, no tenderness. Right foot is currently dressed up, no obvious drainage on the dressing. LABS: Hemoglobin is 10.4, white count 5.5 with a BUN of 16, creatinine 0.90. DIAGNOSTIC IMPRESSION AND PLAN: 1. Patient with left foot wound, wound culture growing MRSA, currently on Bactrim. Local wound care to continue with Santyl. 2. Patient with episode of sepsis with concern for possible ischemic colitis. Currently covered with Zosyn. Hopefully transition to oral antibiotic as the patient continues to improve. Continue supportive care. MMODL / IJN: [id number] /
[2018-10-08] MEDS: OXYBUTYNIN CHLORIDE 5 MG TAB PO SCH ×2 (08:35→21:35)
[2018-10-08] MEDS: FUROSEMIDE 40 MG TAB PO SCH ×2 (08:35→15:03)
[2018-10-08] MEDS: SERTRALINE 25 MG TAB PO SCH (08:35)
[2018-10-08] MEDS: SULFAMETHOX-TMP 800-160MG 1 EACH TAB PO SCH ×2 (08:35→21:35)
[2018-10-08] MEDS: ASPIRIN 81 MG PO SCH (08:35)
[2018-10-08] MEDS: LISINOPRIL-HCTZ 20-25 MG 1 EACH TAB PO SCH (08:35)
[2018-10-08] MEDS: MAGNESIUM OXIDE 400 MG TAB PO SCH ×2 (08:35→21:35)
[2018-10-08] MEDS: THIAMINE 100 MG TAB PO SCH (08:35)
[2018-10-08] MEDS: GABAPENTIN 100 MG CAP PO SCH ×3 (08:36→21:34)
[2018-10-08] MEDS: METOPROLOL TARTRATE 50 MG TAB PO SCH ×2 (08:36→21:34)
[2018-10-08] MEDS: DICLOFENAC SODIUM GEL 100 GM TUBE TOPICAL SCH ×4 (08:36→21:36)
[2018-10-08] MEDS: AMOXIC-POT CLAV 875-125MG 1 EACH TAB PO SCH ×2 (08:36→21:34)
[2018-10-08] MEDS: COLLAGENASE 250 UNIT/GM OINTMENT 30 GM TUBE TOPICAL SCH (08:36)
[2018-10-08] MEDS: MENTHOL-ZINC OXIDE OINT 113 GM TUBE TOPICAL SCH ×2 (08:36→21:36)
[2018-10-08] MEDS: AMIODARONE 200 MG TAB PO SCH ×2 (08:36→21:35)
[2018-10-08 10:52] LABS: Glucose,Whole Blood 235 mg/dL (75-99)
--- NOTE | 2018-10-08 13:09 | P.PN ---
Subjective Progress Note Date: 10/08/18 Principal diagnosis: Atrial fibrillation with rapid ventricular response This is a pleasant 83-year-old female patient with a past medical history significant for coronary artery disease, chronic atrial fibrillation, not on any oral anticoagulation, as well as multiple comorbid conditions, was admitted to the hospital was atrial fibrillation with rapid ventricular response. Please note that the patient fell a few weeks ago and fractured her left arm. She underwent an echocardiogram which revealed impaired LV function was EF around 35% with moderate MR. There was also mild aortic stenosis. On follow-up with the patient today, October 082018, the patient continues to be in atrial fibrillation was controlled heart rate. Currently she is on amiodarone by mouth as well as metoprolol by mouth. She is not on any oral anticoagulation because of her history of falling and bleeding. The patient can be discharged home Objective - Vital Signs Vital signs: Vital Signs Temp 97.4 F L 10/08/18 07:48 Pulse 67 10/08/18 12:00 Resp 16 10/08/18 12:00 BP 103/50 10/08/18 12:00 Pulse Ox 100 10/08/18 12:00 Intake & Output 10/07/18 10/08/18 10/08/18 18:59 06:59 18:59 Intake Total 720 100 Output Total 900 Balance -180 100 Weight 75.7 kg Intake: Oral 720 100 Output: Urine 900 Other: Voiding Method Bedside Commode # Voids 1 - Constitutional General appearance: Present: no acute distress - Respiratory Respiratory: bilateral: diminished - Cardiovascular Rhythm: irregularly irregular Heart sounds: normal: S1, S2 - Labs CBC & Chem 7: 10/07/18 06:32 10/07/18 06:32 Labs: Abnormal Lab Results - Last 24 Hours (Table) 10/07/18 10/07/18 10/08/18 Range/Units 17:04 19:53 06:12 POC Glucose (mg/dL) 190 H 289 H 160 H (75-99) mg/dL 10/08/18 Range/Units 10:50 POC Glucose (mg/dL) 235 H (75-99) mg/dL Microbiology - Last 24 Hours (Table) 10/03/18 00:39 Blood Culture - Preliminary Blood No Growth after 120 hours Assessment and Plan Assessment: Assessment #1 atrial fibrillation with rapid ventricular response #2 known chronic persistent atrial fibrillation #3 coronary artery disease #4 ischemic cardiomyopathy #5 multiple comorbid conditions Plan #1 continue the current dose of amiodarone #2 continue the current dose of metoprolol #3 continue holding anticoagulation. #4 the patient can be discharged home
[2018-10-08] MEDS: SENNOSIDES-DOCUSATE SODIUM 1 EACH TAB PO PRN (15:03)
[2018-10-08 16:44] LABS: Glucose,Whole Blood 170 mg/dL (75-99)
--- NOTE | 2018-10-08 16:49 | DS ---
DISCHARGE SUMMARY DATE OF ADMISSION: 09/29/2018 DATE OF DISCHARGE: 10/08/2018 FINAL DIAGNOSES: 1. Persistent atrial fibrillation with rapid ventricular rate on presentation. 2. Acute ischemic colitis, left-sided. 3. Diabetes mellitus type 2, chronically on insulin. 4. Peripheral artery disease. 5. Coronary artery disease. 6. Hyperlipidemia. 7. Essential hypertension. 8. Primary osteoarthritis. 9. Peripheral neuropathy idiopathic. 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 11.Stage II left heel ulcer, present on admission. 12.Right humeral neck fracture with chronic pain, right arm in sling, being followed by Dr. Juarez. 13.Medical debility uses a walker at bedside. 14.Chronic congestive heart failure from systolic dysfunction, EF 35-40 percent with acute exacerbation. 15.Moderate mitral regurgitation, nonrheumatic. 16.Moderate aortic valve sclerosis. 17.Cardiogenic shock from atrial fibrillation with rapid ventricular rate. HOSPITAL COURSE: This patient presented with atrial fibrillation with rapid ventricular rate, then became actually hypotensive and transferred to the ICU and also went into CHF. The patient also found to have acute colitis for which she was put on IV Zosyn, switched over to then Augmentin for the left foot. She has been getting Bactrim by Dr. Cortez. Doing much better. Right arm is in a sling. Recently had a fracture of the right humerus. Seen by Dr. Juarez. Patient tolerating a diet. Abdomen is soft, nontender. Discussed with Dr. Cortez from ID. The patient will be switched from IV Zosyn to Augmentin. Remains on Bactrim for another 1 week. PHYSICAL EXAMINATION: VITAL SIGNS: Temperature 97.4, pulse 58, respiratory rate 16, blood pressure 106/63, pulse ox 100 percent on 2 L. ABDOMEN: Soft, nontender. PSYCH: AO x3. Right arm in a sling. INVESTIGATIONS: Accu-Cheks are noted. White count 5.5, hemoglobin 10.4, potassium 4.2, BUN 16, creatinine 0.9. DISCHARGE MEDICATIONS: 1. Pentoxifylline 4 mg p.o. t.i.d. 2. Zoloft 25 mg p.o. daily. 3. PreserVision 2 soft gel 1 capsule p.o. daily. 4. Metformin 1000 mg p.o. b.i.d. 5. Tylenol 650 mg p.o. q.6. 6. Aspirin 81 mg a day. 7. Lasix 40 mg b.i.d. 8. Vitamin D2 63560 units every 7 days. 9. Zestoretic 20/25 1 tablet p.o. daily. 10.Magnesium oxide 400 mg p.o. b.i.d. 11.Omeprazole 40 mg p.o. daily. 12.Senna S1 tablet p.o. b.i.d. p.r.n. 13.Thiamine 100 mg p.o. daily. 14.Detrol LA 4 mg p.o. daily. 15. 20 mg p.o. q.h.s. 16.Vitamin B complex 1 capsule p.o. daily. 17.Santyl topical Q 24 hours. 18.NovoLog 5 units a.c. t.i.d. 19.Levemir 15 units subcu q.h.s. 20.Accu-Cheks a.c. and q.h.s. sliding scale. 21.Milk of magnesia 2400 mg p.o. daily p.r.n. 22.Dulcolax 10 mg rectally daily p.r.n. 23. topical b.i.d. 24.NovoLog per protocol. 25.Calmoseptine topical b.i.d. 26.Fleet Adult p.r.n. daily. 27.Cordarone 200 mg p.o. b.i.d. 28.Augmentin 875 1 tab p.o. q.12h 14 tablets. 29.Motrin gel 2 g topical q.i.d. 30.Neurontin 200 mg p.o. t.i.d. 31.Lopressor 50 mg p.o. b.i.d. 32.Bactrim DS 1 tablet p.o. b.i.d., 14 tablets. 33.Ultram 50 mg q.6h p.r.n. Right arm to remain in the sling. CONSULTATIONS: Dr. Hendrickson from General surgery for acute abdomen. Dr. Choe for Pulmonary Critical Care; Dr. Cortez from Infectious Disease, Dr. Koch from Cardiology. DISPOSITION: [facility]. FOLLOWUP: Follow up with Dr. Boston in [facility], follow up with Dr. Kebede. DC from there, Dr. Hendrickson on October 24 2018; Dr. Cortez in 2 weeks at the wound center, Dr. Peterson Juarez, orthopedics in 1 week. Local wound to continue as per Dr. Cortez. Discussion and discharge planning more than [address] Kebede and Dr. Boston. MMODL / IJN: [id number] /
[2018-10-08 20:30] LABS: Glucose,Whole Blood 230 mg/dL (75-99)
[2018-10-08] MEDS: ENOXAPARIN 40 MG/0.4 ML SYRINGE SQ SCH (21:34)
[2018-10-08] MEDS: INSULIN DETEMIR 100 UNIT/ML 10 ML VIAL SQ SCH (21:34)
[2018-10-08] MEDS: TROSPIUM CHLORIDE 20 MG TABLET PO SCH (21:35)
--- NOTE | 2018-10-08 23:43 | PN ---
PROGRESS NOTE DATE OF SERVICE: 10/08/2018. REASON FOR FOLLOW UP: Left foot wound with positive cultures with Stenotrophomonas, colitis possibly ischemic, left gluteal stage II pressure ulcer. INTERVAL HISTORY: The patient is currently afebrile. She is breathing comfortably. Denies having any chest pain or cough. No abdominal pain. No diarrhea or worsening pain to the left foot area. PHYSICAL EXAMINATION: Blood pressure is 111/63 with a pulse of 79, temperature 97, she is 93% on room air. GENERAL DESCRIPTION: An elderly female up in the chair in no distress. RESPIRATORY SYSTEM: Unlabored breathing. Clear to auscultation anteriorly. HEART: S1, S2. Regular rate and rhythm. ABDOMEN: Soft, no tenderness. EXTREMITIES: Left foot medial border wound with slough tissue with surrounding necrosis and minimal surround redness. No drainage. The patient did have a stage II pressure ulcer in the left scrotal area with no cellulitis. LABS: Hemoglobin is 10.4, white count 5.5, BUN of 15, creatinine 0.90. DIAGNOSTIC IMPRESSION/PLAN: 1. Patient with left foot nonhealing wound, diabetic foot ulcer, with positive cultures with Stenotrophomonas, possible skin marifer. Currently on a short course of oral Bactrim DS. Local wound care to continue with Santyl. She will need further surgical debridement by Vascular Surgery. 2. Colitis, possible ischemic, on oral Augmentin. Continue for about a week. 3. Stage II sacral wound. Local wound care with Aquacel Silver dressing. Keep the area off the pressure. MMODL / IJN: [id number] /
[2018-10-09 06:07] LABS: Glucose,Whole Blood 224 mg/dL (75-99)
[2018-10-09] MEDS: traMADol 50 MG TAB PO PRN (06:37)
[2018-10-09] MEDS: INSULIN ASPART 100 UNIT/ML 1 ML 10 ML VIAL SQ SCH ×2 (06:37→12:16)
[2018-10-09] MEDS: PANTOPRAZOLE 40 MG TABLET PO SCH (06:37)
[2018-10-09] MEDS: MAGNESIUM HYDROXIDE 2,400 MG/10 ML CUP PO PRN (06:37)
[2018-10-09] MEDS: SULFAMETHOX-TMP 800-160MG 1 EACH TAB PO SCH (08:20)
[2018-10-09] MEDS: AMOXIC-POT CLAV 875-125MG 1 EACH TAB PO SCH (08:20)
[2018-10-09] MEDS: OXYBUTYNIN CHLORIDE 5 MG TAB PO SCH (08:20)
[2018-10-09] MEDS: METOPROLOL TARTRATE 50 MG TAB PO SCH (08:20)
[2018-10-09] MEDS: MAGNESIUM OXIDE 400 MG TAB PO SCH (08:20)
[2018-10-09] MEDS: THIAMINE 100 MG TAB PO SCH (08:20)
[2018-10-09] MEDS: AMIODARONE 200 MG TAB PO SCH (08:20)
[2018-10-09] MEDS: GABAPENTIN 100 MG CAP PO SCH (08:20)
[2018-10-09] MEDS: FUROSEMIDE 40 MG TAB PO SCH (08:20)
[2018-10-09] MEDS: SERTRALINE 25 MG TAB PO SCH (08:21)
[2018-10-09] MEDS: DICLOFENAC SODIUM GEL 100 GM TUBE TOPICAL SCH ×2 (08:21→12:55)
[2018-10-09] MEDS: COLLAGENASE 250 UNIT/GM OINTMENT 30 GM TUBE TOPICAL SCH (08:21)
[2018-10-09] MEDS: ASPIRIN 81 MG PO SCH (08:21)
[2018-10-09] MEDS: LISINOPRIL-HCTZ 20-25 MG 1 EACH TAB PO SCH (08:22)
[2018-10-09] MEDS: MENTHOL-ZINC OXIDE OINT 113 GM TUBE TOPICAL SCH (08:22)
[2018-10-09 08:27] VITALS: RESP 16
[2018-10-09 12:05] VITALS: BP 96/56; PULSE 67; TEMP 97.2
[2018-10-09 12:14] LABS: Glucose,Whole Blood 118 mg/dL (75-99)
--- NOTE | 2018-10-09 12:50 | PN ---
PROGRESS NOTE DATE OF SERVICE: 10/09/2018 REASON FOR FOLLOWUP: 1. Colitis possible ischemia. 2. Left foot wound. 3. Left gluteal wound. INTERVAL HISTORY: The patient is currently afebrile. She is breathing comfortably. Denies having any chest pain or shortness of breath. Occasional cough. No abdominal pain, no diarrhea. PHYSICAL EXAMINATION: On examination, blood pressure is 106/58 with a pulse of 64, temperature is 97.6. She is 96% on room air. General description is an elderly female up in the chair in no distress. RESPIRATORY SYSTEM: Unlabored breathing, clear to auscultation anteriorly. HEART: S1, S2. Regular rate and rhythm. ABDOMEN: Soft. No tenderness. LABS: No new labs have been obtained today. DIAGNOSTIC IMPRESSION AND PLAN: 1. Patient with a colitis, possibly ischemic. Currently on Augmentin show clinical improvement, continue for another week to finish the course of therapy. 2. Left foot wound. Local wound care with Santyl, short course of oral Bactrim DS. The patient will follow with Dr. Oquendo in the wound care center. 3. Left gluteal stage II pressure ulcer. Local wound care with Aquacel Silver dressing. Keep the area off the pressure and dry. MMODL / IJN: [id number] /
--- NOTE | 2018-10-09 14:27 | P.PN ---
Subjective Progress Note Date: 10/09/18 This is a pleasant 83-year-old patient with past medical history significant for coronary artery disease, chronic persistent atrial fibrillation , not on anticoagulation, multiple comorbid conditions who initially came to the hospital because of A. fib with RVR. Patient also experienced a fall a few weeks ago, and has a fracture to her right arm. Blood pressure this morning 106 /50 with a heart rate in the 60s, 96% on room air. Arrangements are being made for possible discharge home today. Objective - Vital Signs Vital signs: Vital Signs Temp 97.2 F L 10/09/18 12:00 Pulse 67 10/09/18 12:00 Resp 16 10/09/18 12:00 BP 96/56 10/09/18 12:00 Pulse Ox 95 10/09/18 12:00 Intake & Output 10/08/18 10/09/18 10/09/18 18:59 06:59 18:59 Intake Total 100 Output Total 2100 Balance 100 -2100 Weight 75.7 kg Intake: Oral 100 Output: Urine 2100 Other: Voiding Method Bedside Commode # Voids 2 - Exam PHYSICAL EXAMINATION: GENERAL: 83-year-old female in no acute distress at the time of my examination HEENT: Head is atraumatic, normocephalic. Pupils equal, round. Sclera anicteric. Conjunctiva are clear. Mucous membranes of the mouth are moist. Neck is supple. There is no elevated jugular venous pressure. No Carotid bruit is heard. HEART EXAMINATION: Heart S1, S2 irregularly irregular . No murmur or gallop heard. CHEST EXAMINATION: Lungs reveal diminished air entry to bilateral bases. No chest wall tenderness is noted on palpation or with deep breathing. ABDOMEN: Soft, nontender. Bowel sounds are heard. No organomegaly noted. EXTREMITIES: 2+ peripheral pulses with no evidence of peripheral edema and no calf tenderness noted. NEUROLOGIC patient is awake, alert and oriented X3. . - Labs CBC & Chem 7: 10/07/18 06:32 10/07/18 06:32 Labs: Abnormal Lab Results - Last 24 Hours (Table) 10/08/18 10/08/18 10/09/18 Range/Units 16:43 20:27 06:06 POC Glucose (mg/dL) 170 H 230 H 224 H (75-99) mg/dL 10/09/18 Range/Units 11:53 POC Glucose (mg/dL) 118 H (75-99) mg/dL Microbiology - Last 24 Hours (Table) 10/03/18 00:39 Blood Culture - Final Blood No Growth after 144 hours Assessment and Plan Plan: Assessment and plan #1 atrial fibrillation with rapid ventricular response, chronic persistent. Patient not on anticoagulation because of history of GI bleeding according to prior medical records #2 recent fall for which patient incurred a fracture to her right arm #3 severe underlying coronary artery disease according to the prior documentation and patient's family. Patient apparently underwent a heart cath with the past one to 2 years which revealed triple vessel coronary artery disease not amendable to intervention or bypass. #4 severe peripheral arterial disease/critical limb ischemia #5 hypertension 6 diabetes #7 hyperlipidemia Plan From cardiology's perspective, we will recommend to continue the patient on her current medications. She may be able to be discharged once cleared by primary. DNP note has been reviewed, I agree with a documented findings and plan of care. Patient was seen and examined.
== END 2018-10-09 13:23 | DRG 308 ==
LOC: EC 18:09 → 3SCARD 20:36 → 2SICU 10-02 22:55 → 3SCARD 10-05 10:09
PROVIDERS: ADMIT Hospitalist; ATTEND Hospitalist
DX: I48.1 Persistent atrial fibrillation (principal); I50.23 Acute on chronic systolic (congestive) heart failure; A41.9 Sepsis, unspecified organism; K55.039 Acute (reversible) ischemia of large intestine, extent unspecified; R57.0 Cardiogenic shock; I13.0 Hypertensive heart and chronic kidney disease with heart failure and stage 1 through stage 4 chronic kidney disease, or unspecified chronic kidney disease; J98.11 Atelectasis; K86.1 Other chronic pancreatitis; L97.919 Non-pressure chronic ulcer of unspecified part of right lower leg with unspecified severity; K55.9 Vascular disorder of intestine, unspecified; I48.2 Chronic atrial fibrillation; I11.0 Hypertensive heart disease with heart failure; E11.22 Type 2 diabetes mellitus with diabetic chronic kidney disease; E11.42 Type 2 diabetes mellitus with diabetic polyneuropathy; E11.51 Type 2 diabetes mellitus with diabetic peripheral angiopathy without gangrene; E11.622 Type 2 diabetes mellitus with other skin ulcer; E78.5 Hyperlipidemia, unspecified; G89.29 Other chronic pain; H91.90 Unspecified hearing loss, unspecified ear; I08.0 Rheumatic disorders of both mitral and aortic valves; I25.10 Atherosclerotic heart disease of native coronary artery without angina pectoris; I25.5 Ischemic cardiomyopathy; I27.20 Pulmonary hypertension, unspecified; I99.8 Other disorder of circulatory system; K21.9 Gastro-esophageal reflux disease without esophagitis; K59.00 Constipation, unspecified; L89.622 Pressure ulcer of left heel, stage 2; M19.90 Unspecified osteoarthritis, unspecified site; L89.322 Pressure ulcer of left buttock, stage 2; N18.9 Chronic kidney disease, unspecified; N39.3 Stress incontinence (female) (male); S42.211D Unspecified displaced fracture of surgical neck of right humerus, subsequent encounter for fracture with routine healing; W19.XXXD Unspecified fall, subsequent encounter; Z91.81 History of falling; Z79.4 Long term (current) use of insulin; Z79.82 Long term (current) use of aspirin; Z79.899 Other long term (current) drug therapy; Z82.49 Family history of ischemic heart disease and other diseases of the circulatory system; Z83.3 Family history of diabetes mellitus; Z85.038 Personal history of other malignant neoplasm of large intestine; Z85.41 Personal history of malignant neoplasm of cervix uteri; Z87.891 Personal history of nicotine dependence; Z90.49 Acquired absence of other specified parts of digestive tract; Z90.710 Acquired absence of both cervix and uterus; Z95.810 Presence of automatic (implantable) cardiac defibrillator; R51 Headache; Z98.49 Cataract extraction status, unspecified eye; Z83.79 Family history of other diseases of the digestive system
CPT/HCPCS: 36415; 71045; 74018; 74176; 80048; 80053; 81003; 82150; 82550; 82553; 83036; 83605; 83690; 83735; 83880; 84100; 84132; 84443; 84484; 85025; 85027; 85610; 85730; 87040; 87070; 87077; 87086; 87186; 87205; 93005; 93306; 96361; 96374; 96375; 99285

== ENCOUNTER 2018-10-13 16:18 | Inpatient (IN) | payer MEDICARE, BC ==
[2018-10-13] MEDS ORDERED: SODIUM CHLORIDE 0.9% 1,000 ML IV STA ×2 (16:21)
--- NOTE | 2018-10-13 16:29 | ED ---
General Adult HPI - General Stated complaint: ABNORMAL LABS Time Seen by Provider: 10/13/18 16:21 Source: patient, EMS, RN notes reviewed Mode of arrival: EMS Limitations: no limitations - History of Present Illness Initial comments: 83-year-old female presents emergency Department from [facility] for abnormal labs. Patient reportedly noted to be in renal failure. Patient states that she has not been taking any new medications. Denies any history of renal failure. Patient states that she does feel weak and rundown. Denies chest pain or shortness of breath. Patient physician reports that this most likely related to her diuretic. Patient states that she has been eating and drinking well. - Related Data Home Medications Medication Instructions Recorded Confirmed Pentoxifylline 400 mg PO TID@0800,1200,1700 12/13/16 10/13/18 Vit C/E/Zn/Coppr/Lutein/Zeaxan 1 cap PO DAILY@1700 11/10/17 10/13/18 [Preservision Areds 2 Softgel] metFORMIN HCL 1,000 mg PO BID 11/10/17 10/13/18 Ergocalciferol [Vitamin D2 50,000 unit PO Q7D 09/25/18 10/13/18 (DRISDOL)] Magnesium Oxide [Mag-Ox] 400 mg PO BID 09/25/18 10/13/18 Omeprazole 40 mg PO DAILY 09/25/18 10/13/18 Sennosides/Docusate Sodium 1 tab PO BID PRN 09/25/18 10/13/18 [Senna-S Laxative Tablet] Thiamine [Vitamin B-1] 100 mg PO DAILY 09/25/18 10/13/18 Tolterodine Tartrate [Detrol LA] 4 mg PO DAILY 09/25/18 10/13/18 Trospium Chloride 20 mg PO HS@2100 09/25/18 10/13/18 Vitamin B Complex 1 cap PO DAILY@1700 09/25/18 10/13/18 Insulin Aspart [NovoLOG See Protocol SQ ACHS 09/29/18 10/13/18 (formulary)] Menthol/Zinc Oxide [Calmoseptine 1 applic TOPICAL BID 09/29/18 10/13/18 Ointment] Na Phos,M-B/Na Phos,Di-Ba [Fleet 133 ml RECTAL DAILY PRN 09/29/18 10/13/18 Adult] Collagenase [Santyl] 1 applic TOPICAL Q24H 10/13/18 10/13/18 Furosemide [Lasix] 40 mg PO BID@0600,1400 10/13/18 10/13/18 Insulin Detemir [Levemir] 15 unit SQ HS@2100 10/13/18 10/13/18 Lisinopril-Hctz 20-12.5 mg 1 tab PO DAILY 10/13/18 10/13/18 [Zestoretic 20-12.5] Ondansetron HCl [Zofran] 4 mg PO DIRECTED PRN 10/13/18 10/13/18 Prostat 30 ml TOPICAL BID 10/13/18 10/13/18 Sertraline HCl [Zoloft] 25 mg PO DAILY 10/13/18 10/13/18 Previous Rx's Medication Instructions Recorded Acetaminophen Tab [Tylenol] 650 mg PO Q6HR tab 03/24/18 Aspirin 81 mg PO DAILY #0 chew 04/03/18 Insulin Aspart [NovoLOG 5 unit SQ AC-TID vial 09/28/18 (formulary)] Magnesium Hydroxide [Milk of 2,400 mg PO DAILY PRN ml 09/28/18 Magnesia Concentrate] Amiodarone [Cordarone] 200 mg PO BID tab 10/08/18 Amoxic-Pot Clav 875-125Mg 1 each PO Q12HR #14 tab 10/08/18 [Augmentin 875-125] Diclofenac Sodium Gel [Voltaren 2 gm TOPICAL QID tube 10/08/18 Gel] Gabapentin [Neurontin] 200 mg PO TID #7 cap 10/08/18 Metoprolol Tartrate [Lopressor] 50 mg PO BID tab 10/08/18 Sulfamethox-Tmp 800-160Mg [Bactrim 1 each PO BID #14 tab 10/08/18 DS 800-160 mg] traMADol HCL [Ultram] 50 mg PO Q4HR PRN 3 Days #7 tab 10/08/18 Allergies Allergy/AdvReac Type Severity Reaction Status Date / Time levofloxacin [From Levaquin] Allergy Mild Rash/Hives Verified 10/13/18 16:36 morphine Allergy Rapid Verified 10/13/18 16:36 Heart Rate Review of Systems ROS Statement: Those systems with pertinent positive or pertinent negative responses have been documented in the HPI. ROS Other: All systems not noted in ROS Statement are negative. Past Medical History Past Medical History: Atrial Fibrillation, Coronary Artery Disease (CAD), Cancer , Diabetes Mellitus, GERD/Reflux, Hearing Disorder / Deafness, Hyperlipidemia, Hypertension, Osteoarthritis (OA), Skin Disorder Additional Past Medical History / Comment(s): diverticultis, rt arm fx, cervical cancer, pancreatitis, right foot infection, gall stones and removal, FALL/fx coccyx 08-29-17, CONSTIPATION, PAD, RT FOOT (great toe) WOUND HAS BEEN GOING TO [facility] , PAST GALLSTONES,lt. foot wound, yeast in abdominal folds History of Any Multi-Drug Resistant Organisms: None Reported Date of last positivie culture/infection: None MDRO Source:: None Past Surgical History: AICD, Bowel Resection, Cholecystectomy, Heart Catheterization, Hysterectomy, Orthopedic Surgery Additional Past Surgical History / Comment(s): Internal defibulator 09-15-17, LT ROTATOR CUFF X2, BUNIONECTOMY JACQUELINE,, JACQUELINE BREAST LUMPECTOMIES-BOTH NEG,, X2 ERCP, RT HAND SX PINS PLACED-BUT SINCE REMOVED, CATARACTS. 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 also has a walker, glucometer and monitor for the aicd. Smoking Status: Former smoker Past Alcohol Use History: None Reported Additional Past Alcohol Use History / Comment(s): Smoked sporadically from 1964 till 1967 Past Drug Use History: None Reported - Past Family History Mother Family Medical History: No Reported History Additional Family Medical History / Comment(s): HEART DISEASE Father Family Medical History: Coronary Artery Disease (CAD), Diabetes Mellitus General Exam General appearance: alert, in no apparent distress Head exam: Present: atraumatic, normocephalic, normal inspection Eye exam: Present: normal appearance, PERRL, EOMI. Absent: scleral icterus, conjunctival injection, periorbital swelling ENT exam: Present: normal exam, normal oropharynx, mucous membranes moist Neck exam: Present: normal inspection, full ROM. Absent: tenderness, meningismus, lymphadenopathy Respiratory exam: Present: normal lung sounds bilaterally. Absent: respiratory distress, wheezes, rales, rhonchi, stridor Cardiovascular Exam: Present: regular rate, normal rhythm, normal heart sounds. Absent: systolic murmur, diastolic murmur, rubs, gallop, clicks GI/Abdominal exam: Present: soft, normal bowel sounds. Absent: distended, tenderness, guarding, rebound, rigid Neurological exam: Present: alert, oriented X3, CN II-XII intact Psychiatric exam: Present: normal affect, normal mood Course Vital Signs 10/13/18 10/13/18 16:25 18:12 Temperature 97.9 F Pulse Rate 112 H 87 Respiratory 16 18 Rate Blood Pressure 80/45 81/46 O2 Sat by Pulse 95 95 Oximetry EKG Findings - EKG Comments: EKG Findings:: EKG performed at 16:37 A. fib with RVR rate of 101 QRS 16 QT/QTC 390/505 Medical Decision Making - Lab Data Result diagrams: 10/13/18 16:48 10/13/18 16:48 Lab Results 10/13/18 10/13/18 Range/Units 16:48 16:48 WBC 11.3 H (3.8-10.6) k/uL RBC 4.16 (3.80-5.40) m/uL Hgb 12.9 (11.4-16.0) gm/dL Hct 38.7 (34.0-46.0) % MCV 93.1 (80.0-100.0) fL MCH 31.0 (25.0-35.0) pg MCHC 33.3 (31.0-37.0) g/dL RDW 15.9 H (11.5-15.5) % Plt Count 475 H (150-450) k/uL Neutrophils % 82 % Lymphocytes % 11 % Monocytes % 4 % Eosinophils % 2 % Basophils % 0 % Neutrophils # 9.3 H (1.3-7.7) k/uL Lymphocytes # 1.2 (1.0-4.8) k/uL Monocytes # 0.4 (0-1.0) k/uL Eosinophils # 0.2 (0-0.7) k/uL Basophils # 0.0 (0-0.2) k/uL Sodium 132 L (137-145) mmol/L Potassium 6.0 H (3.5-5.1) mmol/L Chloride 95 L (98-107) mmol/L Carbon Dioxide 22 (22-30) mmol/L Anion Gap 15 mmol/L BUN 72 H (7-17) mg/dL Creatinine 2.98 H (0.52-1.04) mg/dL Est GFR (CKD-EPI)AfAm 16 (>60 ml/min/1.73 sqM) Est GFR (CKD-EPI)NonAf 14 (>60 ml/min/1.73 sqM) Glucose 86 (74-99) mg/dL Calcium 9.0 (8.4-10.2) mg/dL Total Bilirubin 0.7 (0.2-1.3) mg/dL AST 21 (14-36) U/L ALT 22 (9-52) U/L Alkaline Phosphatase 120 (38-126) U/L Total Protein 5.9 L (6.3-8.2) g/dL Albumin 3.1 L (3.5-5.0) g/dL Disposition Clinical Impression: Hyperkalemia, Acute renal failure, Atrial fibrillation with RVR Disposition: ADMITTED IP TO THIS HOSP Condition: Fair Referrals: Ulysses Rose DO [Primary Care Provider] - 1-2 days
[2018-10-13 16:58] LABS: Basophils % (A) 0 %; Eosinophils # (A) 0.2 k/uL (0-0.7); Eosinophils % (A) 2 %; HCT 38.7 % (34.0-46.0); HGB 12.9 gm/dL (11.4-16.0); Lymphocytes # (A) 1.2 k/uL (1.0-4.8); Lymphocytes % (A) 11 %; MCHC 33.3 g/dL (31.0-37.0); MCV 93.1 fL (80.0-100.0); Mean Platelet Volume 6.4; Monocytes # (A) 0.4 k/uL (0-1.0); Monocytes % (A) 4 %; Neutrophils # (A) 9.3 k/uL (1.3-7.7); Neutrophils % (A) 82 %; Platelet Count 475 k/uL (150-450); RBC 4.16 m/uL (3.80-5.40); RDW 15.9 % (11.5-15.5); WBC 11.3 k/uL (3.8-10.6)
[2018-10-13 17:08] LABS: Albumin 3.1 g/dL (3.5-5.0); Total Bilirubin 0.7 mg/dL (0.2-1.3); Total Protein 5.9 g/dL (6.3-8.2)
[2018-10-13] MEDS ORDERED: DEXTROSE 50%-WATER 50 ML SYRINGE IVP STA (18:24)
[2018-10-13] MEDS ORDERED: INSULIN REGULAR 100 UNIT/ML VIAL IV ONE (18:25)
[2018-10-13] MEDS ORDERED: ALBUTEROL NEBULIZED 2.5 MG/3 ML INHALATION STA (19:10)
[2018-10-13] MEDS ORDERED: NALOXONE 0.4 MG/ML 1 ML VIAL IV PRN (19:12)
[2018-10-13 20:04] LABS: Appearance,Urine Clear (Clear); Bilirubin,Urine Negative (Negative); Blood,Urine Negative (Negative); Color,Urine Yellow; Glucose,Urine (UA) Negative (Negative); Ketones,Urine Negative (Negative); Leukocyte Esterase,Urine Negative (Negative); Nitrite,Urine Negative (Negative); Protein,Urine Negative (Negative); Specific Gravity,Urine 1.013 (1.001-1.035); Urobilinogen,Urine <2.0 mg/dL (<2.0)
[2018-10-14] MEDS: ACETAMINOPHEN TAB 325 MG TAB PO PRN (00:12)
[2018-10-14] MEDS ORDERED: COLLAGENASE 250 UNIT/GM OINTMENT 30 GM TUBE TOPICAL SCH (00:15)
[2018-10-14 00:49] LABS: Glucose,Whole Blood 102 mg/dL (75-99)
--- NOTE | 2018-10-14 01:00 | P.HPIM ---
History of Present Illness H&P Date: 10/13/18 Chief Complaint: abnormal labs 83-year-old female with history of recent right humeral fracture. Patient recently been hospitalized and discharged few days ago when she was having A. fib with RVR agnostic have ischemic colitis and found to have left big toe Ulcer for which she's been treated for Augmentin and Bactrim respectively. Patient also been treated conservatively for with her right humeral fracture with arm sling and outpatient follow-up with orthopedic. Patient has been at [facility] however she was sent to our hospital today due to abnormal labs as she was found to have acute kidney injury and hyperkalemia otherwise patient denies any chest pain or trouble breathing she denies any fevers or chills denies any coughing denies any bleeding she denies any abdominal pain. Patient does complain of feeling generally weak and rundown. In the ER patient was given insulin and D50 to treat hyperkalemia, she was started on IV fluid hydration. And admitted for further care Review of Systems Pertinent positives as noted in HPI. All other systems were reviewed and are negative Past Medical History Past Medical History: Atrial Fibrillation, Coronary Artery Disease (CAD), Cancer , Diabetes Mellitus, GERD/Reflux, Hearing Disorder / Deafness, Hyperlipidemia, Hypertension, Osteoarthritis (OA), Skin Disorder Additional Past Medical History / Comment(s): diverticultis, rt arm fx, cervical cancer, pancreatitis, right foot infection, gall stones and removal, FALL/fx coccyx 08-29-17, CONSTIPATION, PAD, RT FOOT (great toe) WOUND HAS BEEN GOING TO [facility] , PAST GALLSTONES,lt. foot wound, yeast in abdominal folds History of Any Multi-Drug Resistant Organisms: None Reported Date of last positivie culture/infection: None MDRO Source:: None Past Surgical History: AICD, Bowel Resection, Cholecystectomy, Heart Catheterization, Hysterectomy, Orthopedic Surgery Additional Past Surgical History / Comment(s): Internal defibulator 09-15-17, LT ROTATOR CUFF X2, BUNIONECTOMY JACQUELINE,, JACQUELINE BREAST LUMPECTOMIES-BOTH NEG,, X2 ERCP, RT HAND SX PINS PLACED-BUT SINCE REMOVED, CATARACTS. 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 also has a walker, glucometer and monitor for the aicd. Smoking Status: Former smoker Past Alcohol Use History: None Reported Additional Past Alcohol Use History / Comment(s): Smoked sporadically from 1964 till 1967 Past Drug Use History: None Reported - Past Family History Mother Family Medical History: No Reported History Additional Family Medical History / Comment(s): HEART DISEASE Father Family Medical History: Coronary Artery Disease (CAD), Diabetes Mellitus Medications and Allergies Home Medications Medication Instructions Recorded Confirmed Type Pentoxifylline 400 mg PO TID@0800,1200,1700 12/13/16 10/13/18 History Vit C/E/Zn/Coppr/Lutein/Zeaxan 1 cap PO DAILY@1700 11/10/17 10/13/18 History [Preservision Areds 2 Softgel] metFORMIN HCL 1,000 mg PO BID 11/10/17 10/13/18 History Acetaminophen Tab [Tylenol] 650 mg PO Q6HR tab 03/24/18 10/13/18 Rx Aspirin 81 mg PO DAILY #0 chew 04/03/18 10/13/18 Rx Ergocalciferol [Vitamin D2 50,000 unit PO Q7D 09/25/18 10/13/18 History (DRISDOL)] Magnesium Oxide [Mag-Ox] 400 mg PO BID 09/25/18 10/13/18 History Omeprazole 40 mg PO DAILY 09/25/18 10/13/18 History Sennosides/Docusate Sodium 1 tab PO BID PRN 09/25/18 10/13/18 History [Senna-S Laxative Tablet] Thiamine [Vitamin B-1] 100 mg PO DAILY 09/25/18 10/13/18 History Tolterodine Tartrate [Detrol LA] 4 mg PO DAILY 09/25/18 10/13/18 History Trospium Chloride 20 mg PO HS@2100 09/25/18 10/13/18 History Vitamin B Complex 1 cap PO DAILY@1700 09/25/18 10/13/18 History Insulin Aspart [NovoLOG 5 unit SQ AC-TID vial 09/28/18 10/13/18 Rx (formulary)] Magnesium Hydroxide [Milk of 2,400 mg PO DAILY PRN ml 09/28/18 10/13/18 Rx Magnesia Concentrate] Insulin Aspart [NovoLOG See Protocol SQ ACHS 09/29/18 10/13/18 History (formulary)] Menthol/Zinc Oxide [Calmoseptine 1 applic TOPICAL BID 09/29/18 10/13/18 History Ointment] Na Phos,M-B/Na Phos,Di-Ba [Fleet 133 ml RECTAL DAILY PRN 09/29/18 10/13/18 History Adult] Amiodarone [Cordarone] 200 mg PO BID tab 10/08/18 10/13/18 Rx Amoxic-Pot Clav 875-125Mg 1 each PO Q12HR #14 tab 10/08/18 10/13/18 Rx [Augmentin 875-125] Diclofenac Sodium Gel [Voltaren 2 gm TOPICAL QID tube 10/08/18 10/13/18 Rx Gel] Gabapentin [Neurontin] 200 mg PO TID #7 cap 10/08/18 10/13/18 Rx Metoprolol Tartrate [Lopressor] 50 mg PO BID tab 10/08/18 10/13/18 Rx Sulfamethox-Tmp 800-160Mg [Bactrim 1 each PO BID #14 tab 10/08/18 10/13/18 Rx DS 800-160 mg] traMADol HCL [Ultram] 50 mg PO Q4HR PRN 3 Days #7 tab 10/08/18 10/13/18 Rx Collagenase [Santyl] 1 applic TOPICAL Q24H 10/13/18 10/13/18 History Furosemide [Lasix] 40 mg PO BID@0600,1400 10/13/18 10/13/18 History Insulin Detemir [Levemir] 15 unit SQ HS@2100 10/13/18 10/13/18 History Lisinopril-Hctz 20-12.5 mg 1 tab PO DAILY 10/13/18 10/13/18 History [Zestoretic 20-12.5] Ondansetron HCl [Zofran] 4 mg PO DIRECTED PRN 10/13/18 10/13/18 History Prostat 30 ml TOPICAL BID 10/13/18 10/13/18 History Sertraline HCl [Zoloft] 25 mg PO DAILY 10/13/18 10/13/18 History Allergies Allergy/AdvReac Type Severity Reaction Status Date / Time levofloxacin [From Levaquin] Allergy Mild Rash/Hives Verified 10/13/18 16:36 morphine Allergy Rapid Verified 10/13/18 16:36 Heart Rate Physical Exam Vitals: Vital Signs Temp Pulse Resp BP Pulse Ox 10/13/18 19:59 97.0 F L 99 16 88/61 95 10/13/18 19:52 97.0 F L 10/13/18 19:46 88 10/13/18 19:38 88 10/13/18 19:30 92 17 85/54 94 L 10/13/18 19:00 87 17 74/54 94 L 10/13/18 18:30 101 H 16 82/49 94 L 10/13/18 18:12 87 18 81/46 95 10/13/18 18:00 99 15 86/75 95 10/13/18 17:30 106 H 16 74/46 96 10/13/18 16:48 80/45 10/13/18 16:25 97.9 F 112 H 16 80/45 95 Intake and Output 10/13/18 10/13/18 10/13/18 06:59 14:59 22:59 Other: Weight 73.936 kg Constitutional: No acute distress, conversant, pleasant Eyes: Anicteric sclerae, moist conjunctiva, Pupils equal round reactive to light ENMT: NC/AT, dry mucous membranes Oropharynx clear, no erythema, no exudates Neck: Supple, FROM, no masses, or JVD No carotid bruits No thyromegaly Lungs: Good breath sounds overall, some respiratory rales at left lung base Clear to percussion Normal respiratory effort, no accessory muscle use Cardiovascular: Heart regular normal S1 and S2 Systolic murmurs, no gallops, or rubs No peripheral edema Abdominal: Soft Nontender, no guarding, rebound or rigidity Abdomen moving with respiration Normoactive bowel sounds No hepatomegaly, No splenomegaly No palpable mass No abdominal wall hernia noted Skin: Normal temperature, tone, texture, turgor No induration No subcutaneous nodules No rash, lesions There is 2 small ulcers 1 over the left heel and the other one with a scab over the right middle toe over the dorsum, I third ulcers over the medial aspect of the left big toe with slight yellowish discharge and slight surrounding erythema no induration Extremities: No digital cyanosis No clubbing Pedal pulses intact and symmetrical Radial pulses intact and symmetrical No calf tenderness Psychiatric: Alert and oriented to person, and place not oriented to time Appropriate affect fair judgment Neuro Muscles Strength -4/5 in all 4 extremities Sensation to light touch grossly present throughout Cranial nerves II-XII grossly intact Decreased sensation over bilateral feet and lower legs to the touch Lymphatics: no palpable cervical or supraclavicular , or inguinal lymph nodes Results CBC & Chem 7: 10/13/18 16:48 10/13/18 16:48 Labs: Abnormal Lab Results - Last 24 Hours (Table) 10/13/18 10/13/18 Range/Units 16:48 16:48 WBC 11.3 H (3.8-10.6) k/uL RDW 15.9 H (11.5-15.5) % Plt Count 475 H (150-450) k/uL Neutrophils # 9.3 H (1.3-7.7) k/uL Sodium 132 L (137-145) mmol/L Potassium 6.0 H (3.5-5.1) mmol/L Chloride 95 L (98-107) mmol/L BUN 72 H (7-17) mg/dL Creatinine 2.98 H (0.52-1.04) mg/dL Total Protein 5.9 L (6.3-8.2) g/dL Albumin 3.1 L (3.5-5.0) g/dL Assessment and Plan Assessment: 83-year-old female with history of A. fib and right humeral fracture admitted as an inpatient with anticipated length of stay more than 2 days due to acute kidney injury and hyperkalemia. Patient was transferred from our [facility] hospital to our facility due to abnormal labs and feeling generalized weakness. Patient has left toe diabetic ulcer.which is currently on antibiotics at the nursing facility Plan: Acute kidney injury most likely prerenal ATN Hyperkalemia IV fluid hydration, gentle due to history of systolic CHF Monitor renal function Monitor urine output Avoid nephrotoxic meds Hold GABI inhibitor's and diuretics Patient given insulin and D50 for hyperkalemia will repeat potassium level at midnight Generalized debility PT/OT Diabetic foot ulcers over the left big toe left heel and right middle toe Wound care Continue antibiotics with Bactrim Recent ischemic colitis patient is being treated with Augmentin since last discharged a few days ago Hypotension Hold lisinopril for darin Hold parameters on metoprolol Gentle IV fluid hydration Chronic conditions Right humeral fracture, continue with arm sling and pain control Systolic CHF with left ventricular ejection fraction 3540 percent currently compensated Coronary artery disease and peripheral arterial disease continue with aspirin Plavix Hyperlipidemia continue statin Neuropathy continue with Neurontin Atrial fibrillation currently rate controlled DVT prophylaxis on heparin subcu 3 times a day Preformed a thorough record review from recent hospitalization for right humeral fracture patient treated conservatively with orthopedic recommending only arm sling and pain control, also being treated for ischemic colitis and left toe diabetic foot ulcer CODE STATUS:*No code Discussed with: Patient, ER, RN Anticipated discharge: 48-[address]: Extended care facility A total of 60 minutes was spent on the care of this complex patient more than 50 % of the time was spent in counseling and care coordination.
[2018-10-14 01:16] LABS: Calcium 8.2 mg/dL (8.4-10.2); Potassium 5.2 mmol/L (3.5-5.1)
[2018-10-14] MEDS: INSULIN DETEMIR 100 UNIT/ML 10 ML VIAL SQ SCH ×2 (01:24→20:40)
[2018-10-14] MEDS: GABAPENTIN 100 MG CAP PO SCH ×4 (01:25→20:41)
[2018-10-14] MEDS: AMIODARONE 200 MG TAB PO SCH ×3 (01:26→20:33)
[2018-10-14] MEDS: traMADol 50 MG TAB PO PRN ×2 (01:26→14:45)
[2018-10-14] MEDS: DICLOFENAC SODIUM GEL 100 GM TUBE TOPICAL SCH ×5 (01:27→20:33)
[2018-10-14] MEDS ORDERED: INSULIN REGULAR 100 UNIT/ML VIAL IV ONE (01:41)
[2018-10-14] MEDS ORDERED: DEXTROSE 50%-WATER 50 ML SYRINGE IVP STA (01:41)
[2018-10-14 06:41] LABS: Glucose,Whole Blood 115 mg/dL (75-99)
[2018-10-14] MEDS: INSULIN ASPART 100 UNIT/ML 1 ML 10 ML VIAL SQ SCH ×4 (06:42→20:41)
[2018-10-14] MEDS: PANTOPRAZOLE 40 MG TABLET PO SCH (08:18)
[2018-10-14] MEDS: ASPIRIN 81 MG PO SCH (08:18)
[2018-10-14] MEDS: METOPROLOL TARTRATE 50 MG TAB PO SCH ×2 (08:18→20:33)
[2018-10-14] MEDS: HEPARIN SODIUM,PORCINE 5,000 UNIT/ML 1 ML VIAL SQ SCH ×2 (08:18→17:48)
[2018-10-14] MEDS: SERTRALINE 25 MG TAB PO SCH (08:19)
[2018-10-14 08:33] LABS: Albumin 2.8 g/dL (3.5-5.0); Calcium 8.6 mg/dL (8.4-10.2); Potassium 5.6 mmol/L (3.5-5.1); Total Bilirubin 0.7 mg/dL (0.2-1.3); Total Protein 5.5 g/dL (6.3-8.2)
[2018-10-14] MEDS ORDERED: NON-FORMULARY DRUG (Tolterodine Tartrate [Detrol La] 4 MG) PO SCH (09:00)
[2018-10-14] MEDS ORDERED: AMOXIC-POT CLAV 875-125MG 1 EACH TAB PO SCH ×2 (09:00→21:00)
[2018-10-14] MEDS ORDERED: SULFAMETHOX-TMP 800-160MG 1 EACH TAB PO SCH ×2 (09:00→21:00)
[2018-10-14] MEDS: PENTOXIFYLLINE 400 MG TABLET.ER PO SCH ×3 (10:15→18:30)
[2018-10-14] MEDS ORDERED: SODIUM POLYSTYRENE SULFONATE 15 GM/60 ML BOTTLE PO STA (10:43)
[2018-10-14] MEDS ORDERED: BISACODYL 5 MG TABLET.DR PO STA (10:45)
[2018-10-14 11:31] LABS: Glucose,Whole Blood 153 mg/dL (75-99)
[2018-10-14] MEDS ORDERED: CALCIUM GLUCONATE 1,000 MG in SODIUM CHLORIDE 0.9% 100 ML IVPB ONE (15:00)
--- NOTE | 2018-10-14 15:01 | P.PN ---
Subjective Progress Note Date: 10/14/18 Patient is an 83-year-old female with a PMH of recent right humeral fracture ( treated conservatively with sling and outpatient follow-up), diabetes mellitus with bilateral diabetic foot ulcers, coronary artery disease, hypertension, hyperlipidemia, and A. fib, was recently discharged from the hospital on 2018 after a prolonged course for A. fib with RVR, septic shock possibly secondary to colitis, MICU stay, and was discharged on Augmentin and Bactrim. The patient was sent from [facility] after she was discovered to have abnormal labs with NYDIA along with hyperkalemia. She was subsequently admitted under the medicine service for further management. ID was consulted for antibiotic management. The patient was seen and examined at the bedside. The patient denied any active complaints though notes that she just feels fatigued. She however denied chest pain, shortness of breath, palpitations, nausea, vomiting, abdominal pain, or diarrhea. Objective - Vital Signs Vital signs: Vital Signs Temp 97.8 F 10/14/18 12:39 Pulse 73 10/14/18 12:39 Resp 18 10/14/18 12:39 BP 90/52 10/14/18 12:39 Pulse Ox 95 10/14/18 12:39 Intake & Output 10/13/18 10/14/18 10/14/18 18:59 06:59 18:59 Intake Total 615 200 Output Total 250 Balance 365 200 Weight 73.936 kg 74 kg Intake: Intake, IV Titration 375 Amount Sodium Chloride 0.9% 1, 375 000 ml @ 75 mls/hr IV . [id number] STA Rx#:[id number] Oral 240 200 Output: Urine 250 Other: Voiding Method Bedpan # Voids 2 3 - Exam General: Non-toxic, in no acute distress, appears stated age, overweight HEENT: NC/AT, anicteric sclerae, moist conjunctiva, no lid-lag, PERRLA Cardiovascular: S1/S2 wnl, systolic murmur , rubs, or gallops Lungs: Clear to auscultation, normal respiratory effort, no accessory muscle use Abdominal: Soft, non-tender, non-distended, no guarding, rebound, or rigidity Skin: Warm, dry Extremities: Ulcers on the left heel, left big toe medial aspect, right third toe, some surrounding erythema and small amounts of discharge Psychiatric: Alert and oriented to person, place and time, appropriate affect Neuro: CN II-XII grossly intact, Strength 4/5 in all 4 extremities, Speech intact, Sensation to light touch grossly intact throughout - Labs CBC & Chem 7: 10/13/18 16:48 10/14/18 07:39 Labs: Abnormal Lab Results - Last 24 Hours (Table) 10/13/18 10/13/18 10/14/18 Range/Units 16:48 16:48 00:39 WBC 11.3 H (3.8-10.6) k/uL RDW 15.9 H (11.5-15.5) % Plt Count 475 H (150-450) k/uL Neutrophils # 9.3 H (1.3-7.7) k/uL Sodium 132 L 132 L (137-145) mmol/L Potassium 6.0 H 5.2 H (3.5-5.1) mmol/L Chloride 95 L (98-107) mmol/L BUN 72 H 69 H (7-17) mg/dL Creatinine 2.98 H 2.73 H (0.52-1.04) mg/dL Glucose (74-99) mg/dL POC Glucose (mg/dL) (75-99) mg/dL Calcium 8.2 L (8.4-10.2) mg/dL Total Protein 5.9 L (6.3-8.2) g/dL Albumin 3.1 L (3.5-5.0) g/dL 10/14/18 10/14/18 10/14/18 Range/Units 00:48 06:37 07:39 WBC (3.8-10.6) k/uL RDW (11.5-15.5) % Plt Count (150-450) k/uL Neutrophils # (1.3-7.7) k/uL Sodium 134 L (137-145) mmol/L Potassium 5.6 H (3.5-5.1) mmol/L Chloride (98-107) mmol/L BUN 65 H (7-17) mg/dL Creatinine 2.28 H (0.52-1.04) mg/dL Glucose 109 H (74-99) mg/dL POC Glucose (mg/dL) 102 H 115 H (75-99) mg/dL Calcium (8.4-10.2) mg/dL Total Protein 5.5 L (6.3-8.2) g/dL Albumin 2.8 L (3.5-5.0) g/dL 10/14/18 Range/Units 11:29 WBC (3.8-10.6) k/uL RDW (11.5-15.5) % Plt Count (150-450) k/uL Neutrophils # (1.3-7.7) k/uL Sodium (137-145) mmol/L Potassium (3.5-5.1) mmol/L Chloride (98-107) mmol/L BUN (7-17) mg/dL Creatinine (0.52-1.04) mg/dL Glucose (74-99) mg/dL POC Glucose (mg/dL) 153 H (75-99) mg/dL Calcium (8.4-10.2) mg/dL Total Protein (6.3-8.2) g/dL Albumin (3.5-5.0) g/dL Assessment and Plan Plan: NYDIA on CKD, improved -Continue to hold GABI inhibitor and diuretics -Monitor BMP -CXR in am Hyperkalemia -Received 30 g of Kayexalate -Will repeat BMP and monitor levels Atrial fibrillation -Rate controlled Diabetic foot ulcers -ID consulted, awaiting recs -Resume Bactrim DM -TIN with Levemir 15 U qhs Recently admitted for ischemic colitis -Resume Augmentin, consult ID Borderline blood pressure -Holding antihypertensives Right humeral fracture -Arm sling -Continue with pain control Chronic systolic CHF, compensated -Lasix currently being held Coronary artery disease -Continue with aspirin, Plavix DVT//GI proph -Heparin -Protonix
[2018-10-14 16:05] LABS: Glucose,Whole Blood 221 mg/dL (75-99)
[2018-10-14 19:06] LABS: Calcium 10.6 mg/dL (8.4-10.2); Potassium 5.2 mmol/L (3.5-5.1)
[2018-10-14 20:28] LABS: Glucose,Whole Blood 208 mg/dL (75-99)
[2018-10-15] MEDS: TROSPIUM CHLORIDE 20 MG TABLET PO SCH ×2 (00:52→21:11)
[2018-10-15] MEDS: HEPARIN SODIUM,PORCINE 5,000 UNIT/ML 1 ML VIAL SQ SCH ×3 (01:01→18:22)
[2018-10-15] MEDS: traMADol 50 MG TAB PO PRN ×2 (01:38→18:22)
--- NOTE | 2018-10-15 03:07 | CONS ---
CONSULTATION DATE OF SERVICE: 10/14/2018. REASON FOR CONSULTATION: 1. Left diabetic foot wound. 2. Left gluteal pressure ulcer. HISTORY OF PRESENT ILLNESS: The patient is an 83 -year-old female who was recently admitted to this facility. The patient did have a wound to her left big toe medial side with the patient has . The patient did have local wound cultures obtained. patient was started on Bactrim DS. During that admission, the patient also had evidence of sepsis thought to be related to ischemic colitis for which the patient was with Zosyn and subsequently transitioned to oral Augmentin. The patient was recently discharged to the [facility] to continue on 1 week course of oral Bactrim DS as well as Augmentin. Apparently, the patient did have blood work done by the [facility]. She was noticed to be in acute renal failure with elevated creatinine as well as potassium. Subsequently the patient has been brought in to the [facility] ER for further management of the same. The patient denies any chest pain or shortness of breath or cough. No abdominal pain. Currently with no diarrhea or any worsening pain to her left big toe wound area. REVIEW OF SYSTEMS: Positive points have been mentioned in HPI. The rest of the systems have been negative. MEDICAL HISTORY: diabetes mellitus, hypertension, hyperlipidemia, atrial fibrillation, diverticulitis, colon cancer, Enterococcus and Pseudomonas aeruginosa and left diabetic foot wound culture positive for Stenotrophomonas. PAST SURGICAL HISTORY: Cholecystectomy, bowel resection, AICD placement, bilateral breast lumpectomy, right knee surgery, big toe. SOCIAL HISTORY: The patient denies smoking, drinking or drug use. FAMILY HISTORY: Positive for diabetes and Crohn's disease. ALLERGIES: TO LEVAQUIN AND MORPHINE. MEDICATIONS: The patient is currently on Bactrim DS 1 twice a day. Augmentin 875 b.i.d. She is on Tylenol, aspirin, baclofen, Neurontin, heparin, NovoLog, Levemir, Lopressor, Narcan Protonix, doxycycline; Senokot, Zoloft . PHYSICAL EXAMINATION: Blood pressure is 100/48, pulse of 88, temperature of 98.2. She is 98% on room air. General description is an elderly female, lying in bed in no distress. No tachypnea or accessory muscles of respiration use. HEENT: Shows slight pallor. No scleral icterus. Oral mucosal membranes are dry. No pharyngeal erythema or thrush. Neck: Trachea central. No thyromegaly. Lungs unlabored breathing. Clear to auscultation anteriorly. No wheeze or crackles. Heart S1, S2. Regular rate and rhythm. ABDOMEN: Soft. No tenderness. No guarding. No rigidity. Extremities: No edema of the feet. Left big toe wound currently did have some necrotic area. There is no surrounding cellulitis or any swelling, redness or drainage. Examination of the left gluteal area, the patient did have a stage II small pressure ulcer but no evidence of any surrounding cellulitis. Neurological: The patient is awake, alert, oriented times three. Mood and affect normal. LABS: BUN of 57, creatinine down to 1.58, admission was 2.98, potassium is 5.2. Hemoglobin is 12.8, white count 11.3. UA has been negative. DIAGNOSTIC IMPRESSION AND PLAN: Patient with left diabetic foot ulcer in this patient who does have a Shanna's grade 2 wound to the left big toe medial side and the wound is currently covered with , but no evidence of any cellulitis. The patient admitted to the hospital with elevated creatinine as well as potassium more likely secondary to the Bactrim DS which was given to the patient for local wound culture positive for Stenotrophomonas, however, currently clinically doubt any evidence of secondary cellulitis. PLAN: 1. Discontinue the Bactrim DS as well as Augmentin. 2. Recommend local wound care with dry dressing to keep the area dry and avoid any or moisturizing agent. 3. We will apply Medihoney to the left gluteal wound area and keep the area off the pressure. 4. We will follow up on clinical condition and culture to further adjust medication if needed. Thank you for this consultation. Will follow this patient along with you. MMODL / IJN: [id number] /
[2018-10-15 05:49] LABS: Glucose,Whole Blood 81 mg/dL (75-99)
[2018-10-15] MEDS: INSULIN ASPART 100 UNIT/ML 1 ML 10 ML VIAL SQ SCH ×4 (05:49→21:15)
[2018-10-15] MEDS: ACETAMINOPHEN TAB 325 MG TAB PO PRN (07:03)
[2018-10-15 07:16] LABS: HCT 36.7 % (34.0-46.0); HGB 12.3 gm/dL (11.4-16.0); MCH 31.1 pg (25.0-35.0); MCHC 33.4 g/dL (31.0-37.0); MCV 93.1 fL (80.0-100.0); Mean Platelet Volume 6.2; Platelet Count 350 k/uL (150-450); RBC 3.95 m/uL (3.80-5.40); RDW 15.9 % (11.5-15.5); WBC 7.1 k/uL (3.8-10.6)
[2018-10-15 07:26] LABS: Calcium 8.8 mg/dL (8.4-10.2); Potassium 4.7 mmol/L (3.5-5.1)
[2018-10-15] MEDS: PENTOXIFYLLINE 400 MG TABLET.ER PO SCH ×3 (07:57→18:21)
[2018-10-15] MEDS: AMIODARONE 200 MG TAB PO SCH ×2 (07:58→21:10)
[2018-10-15] MEDS: ASPIRIN 81 MG PO SCH (07:58)
[2018-10-15] MEDS: DICLOFENAC SODIUM GEL 100 GM TUBE TOPICAL SCH ×4 (07:58→21:13)
[2018-10-15] MEDS: GABAPENTIN 100 MG CAP PO SCH ×3 (07:58→21:10)
[2018-10-15] MEDS: PANTOPRAZOLE 40 MG TABLET PO SCH (07:59)
[2018-10-15] MEDS: METOPROLOL TARTRATE 50 MG TAB PO SCH ×2 (07:59→21:11)
[2018-10-15] MEDS: SERTRALINE 25 MG TAB PO SCH (07:59)
[2018-10-15] MEDS: SENNOSIDES-DOCUSATE SODIUM 1 EACH TAB PO PRN ×2 (07:59→21:11)
--- NOTE | 2018-10-15 08:11 | XR ---
EXAMINATION TYPE: XR chest 1V portable DATE OF EXAM: 10/15/2018 HISTORY: Shortness of breath. COMPARISON: 10/05/2018 TECHNIQUE: Single view of the chest is submitted. FINDINGS: Demonstrated are scattered senescent parenchymal change. There is no evidence for focal infiltrate. Basilar pleural thickening. Pacer device is unchanged. The heart is stable. Hilar and mediastinal structures are within normal limits. Degenerative changes are seen of the dorsal spine. IMPRESSION: 1. Chronic changes without evidence for acute pulmonary disease.
[2018-10-15 12:15] LABS: Glucose,Whole Blood 133 mg/dL (75-99)
--- NOTE | 2018-10-15 15:15 | P.PN ---
Subjective Progress Note Date: 10/15/18 Patient is an 83-year-old female with a PMH of recent right humeral fracture ( treated conservatively with sling and outpatient follow-up), diabetes mellitus with bilateral diabetic foot ulcers, coronary artery disease, hypertension, hyperlipidemia, and A. fib, was recently discharged from the hospital on 2018 after a prolonged course for A. fib with RVR, septic shock possibly secondary to colitis, MICU stay, and was discharged on Augmentin and Bactrim. The patient was sent from [facility] after she was discovered to have abnormal labs with NYDIA along with hyperkalemia. She was subsequently admitted under the medicine service for further management. ID was consulted for antibiotic management and recommended discontinuing both bactrim and augmentin. The patient was seen and examined at the bedside. She was in good spirits and denied any active complaints. She denied fever, chills, chest pain, SOB, nausea , or vomiting. Objective - Vital Signs Vital signs: Vital Signs Temp 97.6 F 10/15/18 13:23 Pulse 63 10/15/18 13:23 Resp 20 10/15/18 13:23 BP 91/54 10/15/18 13:23 Pulse Ox 99 10/15/18 13:23 Intake & Output 10/14/18 10/15/18 10/15/18 18:59 06:59 18:59 Intake Total 400 340 120 Output Total 350 400 Balance 400 -10 -280 Weight 74 kg Intake: Intake, IV Titration 100 Amount Calcium Gluconate 1,000 100 mg In Sodium Chloride 0.9 % 100 ml @ 100 mls/hr IVPB ONCE ONE Rx#: [id number] Oral 400 240 120 Output: Urine 350 400 Other: Voiding Method Bedside Commode # Voids 3 3 - Exam General: Non-toxic, in no acute distress, appears stated age, overweight HEENT: NC/AT, anicteric sclerae, moist conjunctiva, no lid-lag, PERRLA Cardiovascular: S1/S2 wnl, systolic murmur, no rubs, or gallops Lungs: Clear to auscultation, normal respiratory effort, no accessory muscle use Abdominal: Soft, non-tender, non-distended, no guarding, rebound, or rigidity Skin: Warm, dry Extremities: Ulcers on the left heel, left big toe medial aspect, right third toe, minimal erythema and discharge Psychiatric: Alert and oriented to person, place and time, appropriate affect Neuro: CN II-XII grossly intact, Strength 4/5 in all 4 extremities, Speech intact, Sensation to light touch grossly intact throughout - Labs CBC & Chem 7: 10/15/18 06:38 10/15/18 06:38 Labs: Abnormal Lab Results - Last 24 Hours (Table) 10/14/18 10/14/18 10/14/18 Range/Units 16:03 18:26 20:26 RDW (11.5-15.5) % Sodium 129 L (137-145) mmol/L Potassium 5.2 H (3.5-5.1) mmol/L Chloride 97 L (98-107) mmol/L BUN 57 H (7-17) mg/dL Creatinine 1.85 H (0.52-1.04) mg/dL Glucose 229 H (74-99) mg/dL POC Glucose (mg/dL) 221 H 208 H (75-99) mg/dL Calcium 10.6 H (8.4-10.2) mg/dL 10/15/18 10/15/18 10/15/18 Range/Units 06:38 06:38 11:41 RDW 15.9 H (11.5-15.5) % Sodium 134 L (137-145) mmol/L Potassium (3.5-5.1) mmol/L Chloride (98-107) mmol/L BUN 45 H (7-17) mg/dL Creatinine 1.34 H (0.52-1.04) mg/dL Glucose (74-99) mg/dL POC Glucose (mg/dL) 133 H (75-99) mg/dL Calcium (8.4-10.2) mg/dL Assessment and Plan Plan: NYDIA on CKD, improved -Continue to hold GABI inhibitor and diuretics -Monitor BMP -CXR reviewed Hyperkalemia, resolved Atrial fibrillation -Rate controlled -Not on AC due to hx of GI bleeding Diabetic foot ulcers -ID consulted, recs appreciated -Wound care DM -TIN with Levemir 15 U qhs Borderline blood pressure -Holding antihypertensives Right humeral fracture -Arm sling -Continue with pain control Chronic systolic CHF, compensated -Lasix currently being held Coronary artery disease -Continue with aspirin, Plavix DVT//GI proph -Heparin -Protonix Discussed with: Patient Anticipated discharge date: 10/16/[address]: [facility] A total of 35 minutes was spent on the care of this complex patient more than 50 % of the time was spent in counseling and care coordination.
[2018-10-15 16:35] LABS: Glucose,Whole Blood 170 mg/dL (75-99)
[2018-10-15] MEDS ORDERED: NA PHOS,M-B/NA PHOS,DI-BA 133 ML ENEMA RECTAL ONE (19:03)
[2018-10-15 20:52] LABS: Glucose,Whole Blood 238 mg/dL (75-99)
[2018-10-15] MEDS: INSULIN DETEMIR 100 UNIT/ML 10 ML VIAL SQ SCH (21:12)
--- NOTE | 2018-10-15 23:50 | PN ---
PROGRESS NOTE DATE OF SERVICE: 10/15/2018. REASON FOR FOLLOWUP: 1. Left diabetic foot ulcer. 2. Right gluteal stage II pressure ulcer. INTERVAL HISTORY: The patient is afebrile. She is more awake and alert. She is breathing comfortably. Denies having any chest pain, cough, no abdominal pain, or any on the left flank gluteal wound area. PHYSICAL EXAMINATION: Blood pressure is 119/54 with a pulse of 63. Temperature 97.8. She is 95% on room air. General description is an elderly female lying in bed in no distress. Respiratory system: Unlabored breathing. Clear to auscultation anteriorly. Heart S1, S2. Regular rate and rhythm. Abdomen soft, no tenderness. Left foot is currently dressed up. No obvious drainage on the dressing. LABS: Hemoglobin 12.2, white count 7.9, BUN of 45, creatinine 1.34. DIAGNOSTIC IMPRESSION AND PLAN: 1. Patient with left diabetic foot ulcer. The wound is currently covered with dry with no evidence of any surrounding cellulitis. Recommend no local cream. Keep the area dry and off pressure. Previous culture positive for Stenotrophomonas in a patient with elevated creatinine and more likely related to the Bactrim. Patient which has been discontinued. Creatinine has improved. No need for further antibiotic therapy at this point. 2. The patient with left gluteal wound. Local wound care with keep the area off the pressure and dry. Continue supportive care. MMODL / IJN: [id number] /
[2018-10-16] MEDS: HEPARIN SODIUM,PORCINE 5,000 UNIT/ML 1 ML VIAL SQ SCH ×4 (01:49→23:12)
[2018-10-16 06:13] LABS: HCT 35.9 % (34.0-46.0); HGB 11.6 gm/dL (11.4-16.0); MCHC 32.3 g/dL (31.0-37.0); MCV 93.1 fL (80.0-100.0); Mean Platelet Volume 6.2; Platelet Count 350 k/uL (150-450); RBC 3.86 m/uL (3.80-5.40); RDW 15.5 % (11.5-15.5); WBC 8.8 k/uL (3.8-10.6)
[2018-10-16 06:15] LABS: Glucose,Whole Blood 161 mg/dL (75-99)
[2018-10-16 06:29] LABS: Calcium 8.7 mg/dL (8.4-10.2); Potassium 4.3 mmol/L (3.5-5.1)
[2018-10-16] MEDS: INSULIN ASPART 100 UNIT/ML 1 ML 10 ML VIAL SQ SCH ×4 (06:49→21:21)
[2018-10-16] MEDS: GABAPENTIN 100 MG CAP PO SCH ×3 (09:22→21:21)
[2018-10-16] MEDS: PANTOPRAZOLE 40 MG TABLET PO SCH (09:22)
[2018-10-16] MEDS: SENNOSIDES-DOCUSATE SODIUM 1 EACH TAB PO PRN (09:23)
[2018-10-16] MEDS: PENTOXIFYLLINE 400 MG TABLET.ER PO SCH ×3 (09:23→17:50)
[2018-10-16] MEDS: METOPROLOL TARTRATE 50 MG TAB PO SCH ×2 (09:23→21:21)
[2018-10-16] MEDS: SERTRALINE 25 MG TAB PO SCH (09:23)
[2018-10-16] MEDS: AMIODARONE 200 MG TAB PO SCH ×2 (09:23→21:21)
[2018-10-16] MEDS: ASPIRIN 81 MG PO SCH (09:23)
[2018-10-16] MEDS: DICLOFENAC SODIUM GEL 100 GM TUBE TOPICAL SCH ×4 (09:24→21:22)
[2018-10-16] MEDS ORDERED: DOCUSATE 100 MG CAP PO PRN (09:24)
[2018-10-16] MEDS: SENNOSIDES 8.6 MG TAB PO SCH (09:27)
[2018-10-16] MEDS ORDERED: POLYETHYLENE GLYCOL 3350 17 GM POWD.PACK PO STA (09:48)
--- NOTE | 2018-10-16 10:31 | XR ---
EXAMINATION TYPE: XR abdomen 2V DATE OF EXAM: 10/16/2018 COMPARISON: 10/02/2018 HISTORY: Constipation TECHNIQUE: One view abdominal series FINDINGS: The osseous structures are intact. The bowel gas pattern is nonspecific. Bilateral lower lobe subseg mental consolidation and small effusion. Vascular calcifications are noted. There are calcifications in the right paraspinal region which could be related to the pancreas. Retained fecal debris througho ut the colon. Arthropathy of the hips and diffuse osteopenia. IMPRESSION: 1. Nonspecific abdomen with no diagnostic evidence of obstruction or 2 bilateral lower lobe infiltrat e and small effusion. 3. There are calcifications in the midabdomen which are nonspecific could be associated with the panc reas as described by recent CT scan. This can be associated with chronic pancreatitis.
[2018-10-16 11:29] LABS: Glucose,Whole Blood 199 mg/dL (75-99)
[2018-10-16 11:34] VITALS: BMI 29.7
--- NOTE | 2018-10-16 14:25 | P.PN ---
Subjective Progress Note Date: 10/16/18 (delayed cahrting seen at 0930) Principal diagnosis: hyperkalemia Patient is an 83-year-old female with a past medical history of recent right humeral fracture, recent ischemic colitis, recent A. fib with RVR all during her hospitalization in September 2018. She also has a history of coronary artery disease, diabetes mellitus, dyslipidemia, and hypertension. She was sent back in from [facility] on 10/13 for hyperkalemia and acute kidney injury. On initial evaluation in the ER she was found have an elevated white blood cell count of 13.3. Sodium of 132, potassium 6, creatinine 2.98 and BUN of 72. She was given temporizing measures and was admitted for further treatment of her acute kidney injury and hyperkalemia. Her antibiotics were held secondary to her renal function. She was seen by ID who felt that the infection had been fully treated in her foot and she would be able to come off antibiotics. She had been on them secondary to infected great toe ulcer. She developed constipation and received an enema on 10/15 with 2 small bowel movements. Patient seen and examined at bedside. She complains of abdominal and rectal pain secondary to no bowel movement in 10 days. She denies any nausea or vomiting. States she feels tired and is having pain all over. Denies any chest pain or shortness of breath. We discussed obtaining an x-ray and increasing her bowel regiment. We also discussed that she'll return of a [place] when she has a bowel movement. Daughter was updated on results of x-ray not showing any signs of obstruction. Will try lactulose this afternoon if no response to senna and MiraLAX. Objective - Vital Signs Vital signs: Vital Signs Temp 97.4 F L 10/16/18 12:00 Pulse 65 10/16/18 12:00 Resp 16 10/16/18 12:00 BP 112/50 10/16/18 12:00 Pulse Ox 96 10/16/18 12:00 Intake & Output 10/15/18 10/16/18 10/16/18 18:59 06:59 18:59 Intake Total 360 240 Output Total 2250 100 Balance -1890 140 Weight 73.6 kg 73.6 kg Intake: Oral 360 240 Output: Urine 2250 100 Other: Voiding Method Bedside Commode # Voids 3 1 - Exam General: non toxic, mild distress due to pain, appears at stated age, obese Derm: warm, dry Head: atraumatic, normocephalic, symmetric Eyes: EOMI, no lid lag, anicteric sclera Mouth: no lip lesion, mucus membranes moist Cardiovascular: S1S2 reg, no murmur, positive posterior tibial pulse bilateral, Lungs: decreased bs bilateral, no rhonchi, no rales , no accessory muscle use Abdominal:+ BS, soft, nontender to palpation, no guarding, no appreciable organomegaly Ext: no gross muscle atrophy, no edema, no contractures Neuro: CN II-XI grossly intact, no focal neuro deficits Psych: Alert, oriented, appropriate affect - Labs CBC & Chem 7: 10/16/18 05:42 10/16/18 05:42 Labs: Abnormal Lab Results - Last 24 Hours (Table) 10/15/18 10/15/18 10/16/18 Range/Units 16:34 20:51 05:42 Sodium 136 L (137-145) mmol/L BUN 27 H (7-17) mg/dL Glucose 162 H (74-99) mg/dL POC Glucose (mg/dL) 170 H 238 H (75-99) mg/dL 10/16/18 10/16/18 Range/Units 06:12 11:18 Sodium (137-145) mmol/L BUN (7-17) mg/dL Glucose (74-99) mg/dL POC Glucose (mg/dL) 161 H 199 H (75-99) mg/dL Assessment and Plan Assessment: Constipation -X-ray of abdomen ordered and obtained today-no obstruction and -Trial of senna and MiraLAX, when necessary Colace. If no results by this afternoon add lactulose NYDIA with hyperkalemia and chronic kidney disease stage III, resolved -Resume GABI inhibitor, diuretics on hold -Continue to hold diuretics with continued elevation of BUN -Repeat basic metabolic profile in 3-4 days A. fib -Rate controlled -Not chronically on anticoagulation secondary to GI bleed -Continue with amiodarone and metoprolol Diabetes mellitus, with hyperglycemia and neuropathy -Continue with Levemir and sliding scale -Follow blood sugars -A1C 8.3 09/30/18 Diabetic foot ulcer, Beal screen 2 -No additional antibiotics needed at this point in time -ID rocks:-Keep area dry, offload pressure Left gluteal wound, stage II pressure ulcer, present on admission -ID recommendations: Local wound care with offloading of the area, keep clean and dry medihoney applied Chronic systolic CHF with EF 35-40% - off diuretics due to dehydration - resume ACEI, on BB - will need f/u with cardio after discharge. DVT prophylaxis: Heparin Discussed with: Patient, nursing, daughter Anticipated discharge: 24-48 hours and seems bowel movement is obtained Anticipated discharge place: Return to [facility] A total of 35 minutes was spent on the care of this complex patient more than 50 % of the time was spent in counseling and care coordination.
[2018-10-16] MEDS ORDERED: LACTULOSE 20 GM/30 ML CUP PO ONE (14:46)
[2018-10-16] MEDS: LISINOPRIL 10 MG TAB PO SCH (15:28)
[2018-10-16 16:35] LABS: Glucose,Whole Blood 193 mg/dL (75-99)
[2018-10-16 21:07] LABS: Glucose,Whole Blood 228 mg/dL (75-99)
[2018-10-16] MEDS: INSULIN DETEMIR 100 UNIT/ML 10 ML VIAL SQ SCH (21:21)
[2018-10-16] MEDS: TROSPIUM CHLORIDE 20 MG TABLET PO SCH (21:22)
--- NOTE | 2018-10-17 05:21 | PN ---
PROGRESS NOTE DATE OF SERVICE: 10/16/2018 REASON FOR FOLLOWUP: 1. Left diabetic foot ulcer. 2. Left gluteal pressure ulcer. INTERVAL HISTORY: The patient is currently afebrile. She is breathing comfortably. Denies having any chest pain or any cough. No abdominal pain or any worsening pain to the left foot wound area. PHYSICAL EXAMINATION: On examination, blood pressure 144/62 with a pulse of 65, temperature 98. She is 99% on room air. General description is an elderly female, lying in bed in no distress. RESPIRATORY SYSTEM: Unlabored breathing, clear to auscultation anteriorly. HEART: S1, S2. Regular rate and rhythm. ABDOMEN: Soft, nontender. Left foot wound with dried out . No significant surrounding redness, warmth or any foul-smelling drainage. LABS: White count of 8.8 with a BUN of 27, creatinine 1.0. DIAGNOSTIC IMPRESSION AND PLAN: 1. Patient with diabetic foot ulcer left foot with dry skin and though no definite cellulitis. Recommend to keep the area dry without any and off the pressure. 2. Left gluteal pressure ulcer. Local care with [facility]. Keep the area off the pressure. Daughter was present at bedside. Questions were answered. MMODL / IJN: [id number] /
[2018-10-17 05:50] LABS: Glucose,Whole Blood 73 mg/dL (75-99)
[2018-10-17] MEDS: INSULIN ASPART 100 UNIT/ML 1 ML 10 ML VIAL SQ SCH ×2 (05:53→12:17)
[2018-10-17 06:31] LABS: HCT 37.1 % (34.0-46.0); HGB 11.7 gm/dL (11.4-16.0); MCH 29.5 pg (25.0-35.0); MCHC 31.6 g/dL (31.0-37.0); MCV 93.3 fL (80.0-100.0); Mean Platelet Volume 6.9; Platelet Count 349 k/uL (150-450); RBC 3.98 m/uL (3.80-5.40); RDW 15.5 % (11.5-15.5); WBC 7.1 k/uL (3.8-10.6)
[2018-10-17 06:54] LABS: Calcium 9.2 mg/dL (8.4-10.2); Potassium 4.4 mmol/L (3.5-5.1)
[2018-10-17 07:41] VITALS: RESP 16
[2018-10-17] MEDS ORDERED: HYDROCHLOROTHIAZIDE 12.5 MG CAP PO SCH (09:00)
[2018-10-17] MEDS: SERTRALINE 25 MG TAB PO SCH (09:09)
[2018-10-17] MEDS: GABAPENTIN 100 MG CAP PO SCH (09:09)
[2018-10-17] MEDS: AMIODARONE 200 MG TAB PO SCH (09:10)
[2018-10-17] MEDS: SENNOSIDES 8.6 MG TAB PO SCH (09:10)
[2018-10-17] MEDS: METOPROLOL TARTRATE 50 MG TAB PO SCH (09:10)
[2018-10-17] MEDS: PENTOXIFYLLINE 400 MG TABLET.ER PO SCH ×2 (09:10→12:17)
[2018-10-17] MEDS: ASPIRIN 81 MG PO SCH (09:10)
[2018-10-17] MEDS: PANTOPRAZOLE 40 MG TABLET PO SCH (09:10)
[2018-10-17] MEDS: HEPARIN SODIUM,PORCINE 5,000 UNIT/ML 1 ML VIAL SQ SCH (09:10)
[2018-10-17] MEDS: LISINOPRIL 10 MG TAB PO SCH (09:10)
[2018-10-17] MEDS: DICLOFENAC SODIUM GEL 100 GM TUBE TOPICAL SCH ×2 (09:11→12:22)
[2018-10-17] MEDS: traMADol 50 MG TAB PO PRN (10:24)
--- NOTE | 2018-10-17 11:24 | P.DS ---
Providers Date of admission: 10/13/18 19:21 Expected date of discharge: 10/17/18 Attending physician: Amira Luz MD Consults: 10/14/18 01:40 Consult Physician Routine Consulting Provider: Alejandro Cortez Consult Reason/Comments: diabetic foot ulcer, history of colitis Do you want consulting provider notified?: Yes Primary care physician: Ulysses Rose Hospital Course: Discharge Diagnosis: Constipation NYDIA with hyperkalemia on CKD III DM 2 with hyperglycemia and neuropathy A fib Left gluteal wound, POA Diabetic wager garde 2 ulcer Chronic systolic CHF Hospital Course: Patient is an 83-year-old female with a past medical history of recent right humeral fracture, recent ischemic colitis, recent A. fib with RVR all during her hospitalization in September 2018. She also has a history of coronary artery disease, diabetes mellitus, dyslipidemia, and hypertension. She was sent back in from [facility] on 10/13 for hyperkalemia and acute kidney injury. On initial evaluation in the ER she was found have an elevated white blood cell count of 13.3. Sodium of 132, potassium 6, creatinine 2.98 and BUN of 72. She was given temporizing measures and was admitted for further treatment of her acute kidney injury and hyperkalemia. Her antibiotics were held secondary to her renal function. She was seen by ID who felt that the infection had been fully treated in her foot and she would be able to come off antibiotics. She had been on them secondary to infected great toe ulcer. Her diuretics and lisinopril where held and she was placed on gentle IVF, her renal function improved. Lisinopril and HCTZ where restarted and she tolerated these well. She developed constipation and received an enema, lactulose, and miralax with resolution. She has been struggling with constipation and should be maintained on colace BID and prn laculose if no bowel movement in 2 days. She should continue to follow with Dr. Oquendo regarding her ulcer. She also will need to see Dr. Tillman in approximately 1-2 weeks regarding her fracture. She should have medahoney applied to her sacral ulcer and frequnet turns. I did recommended repeat BMP in 3-5 days for recheck of renal function and potassium levels. She will need assistance with feeding at this time. She had one episode of slgihtly low blood sugar on the morning of 10/16 due to decreased oral intake the day prior and levemir dose decreased to 12 units. Patient seen and examined at bedside.Still with pain in shoulder and rectum but better than yesterday. No nausea or vomiting. Breathing feels short due to sling but no cough. Still feeling tired. Vital signs reviewed and stable. General: non toxic, no distress, appears at stated age Derm: warm, dry Cardiovascular: S1S2 reg, no murmur, positive posterior tibial pulse bilateral, Lungs: Decreased bs bilateral, no rhonchi, no rales , no accessory muscle use Abdominal: soft, nontender to palpation, no guarding, no appreciable organomegaly Ext: right arm in sling, no gross muscle atrophy, no edema, no contractures Neuro: CN II-XI grossly intact, no focal neuro deficits Psych: Alert, oriented, appropriate affect A total of 45 minutes of time were spent preparing this complex discharge summary . Pertinent Studies: Acute abdominal series-no obstruction Patient Condition at Discharge: Fair Plan - Discharge Summary Discharge Rx Participant: Yes New Discharge Prescriptions: New Docusate [Colace] 100 mg PO BID #0 cap Hydrochlorothiazide [Hydrodiuril] 12.5 mg PO DAILY cap Insulin Detemir [Levemir] 12 unit SQ HS@2100 #0 syr Lactulose 15 gm PO DAILY PRN #60 ml PRN Reason: Constipation Continue Pentoxifylline 400 mg PO TID@0800,1200,1700 metFORMIN HCL 1,000 mg PO BID Vit C/E/Zn/Coppr/Lutein/Zeaxan [Preservision Areds 2 Softgel] 1 cap PO DAILY@ 1700 Acetaminophen Tab [Tylenol] 650 mg PO Q6HR tab Aspirin 81 mg PO DAILY #0 chew Tolterodine Tartrate [Detrol LA] 4 mg PO DAILY Thiamine [Vitamin B-1] 100 mg PO DAILY Ergocalciferol [Vitamin D2 (DRISDOL)] 50,000 unit PO Q7D Omeprazole 40 mg PO DAILY Magnesium Oxide [Mag-Ox] 400 mg PO BID Vitamin B Complex 1 cap PO DAILY@1700 Insulin Aspart [NovoLOG (formulary)] See Protocol SQ ACHS Amiodarone [Cordarone] 200 mg PO BID tab Diclofenac Sodium Gel [Voltaren Gel] 2 gm TOPICAL QID tube Metoprolol Tartrate [Lopressor] 50 mg PO BID tab Gabapentin [Neurontin] 200 mg PO TID #7 cap Sertraline HCl [Zoloft] 25 mg PO DAILY Lisinopril-Hctz 20-12.5 mg [Zestoretic 20-12.5] 1 tab PO DAILY Prostat 30 ml TOPICAL BID Ondansetron HCl [Zofran] 4 mg PO DIRECTED PRN PRN Reason: Nausea traMADol HCL [Ultram] 50 mg PO Q4HR PRN 3 Days #7 tab PRN Reason: Severe Pain Discontinued Sennosides/Docusate Sodium [Senna-S Laxative Tablet] 1 tab PO BID PRN PRN Reason: Constipation Trospium Chloride 20 mg PO HS@2100 Insulin Aspart [NovoLOG (formulary)] 5 unit SQ AC-TID vial Magnesium Hydroxide [Milk of Magnesia Concentrate] 2,400 mg PO DAILY PRN ml PRN Reason: Constipation Menthol/Zinc Oxide [Calmoseptine Ointment] 1 applic TOPICAL BID Na Phos,M-B/Na Phos,Di-Ba [Fleet Adult] 133 ml RECTAL DAILY PRN PRN Reason: Constipation Amoxic-Pot Clav 875-125Mg [Augmentin 875-125] 1 each PO Q12HR #14 tab Sulfamethox-Tmp 800-160Mg [Bactrim DS 800-160 mg] 1 each PO BID #14 tab Furosemide [Lasix] 40 mg PO BID@0600,1400 Insulin Detemir [Levemir] 15 unit SQ HS@2100 No Action Collagenase [Santyl] 1 applic TOPICAL Q24H Discharge Medication List Pentoxifylline 400 mg PO TID@0800,1200,1700 12/13/16 [History] Vit C/E/Zn/Coppr/Lutein/Zeaxan [Preservision Areds 2 Softgel] 1 cap PO DAILY@ 1700 11/10/17 [History] metFORMIN HCL 1,000 mg PO BID 11/10/17 [History] Acetaminophen Tab [Tylenol] 650 mg PO Q6HR tab 03/24/18 [Rx] Aspirin 81 mg PO DAILY #0 chew 04/03/18 [Rx] Ergocalciferol [Vitamin D2 (DRISDOL)] 50,000 unit PO Q7D 09/25/18 [History] Magnesium Oxide [Mag-Ox] 400 mg PO BID 09/25/18 [History] Omeprazole 40 mg PO DAILY 09/25/18 [History] Thiamine [Vitamin B-1] 100 mg PO DAILY 09/25/18 [History] Tolterodine Tartrate [Detrol LA] 4 mg PO DAILY 09/25/18 [History] Vitamin B Complex 1 cap PO DAILY@1700 09/25/18 [History] Insulin Aspart [NovoLOG (formulary)] See Protocol SQ ACHS 09/29/18 [History] Amiodarone [Cordarone] 200 mg PO BID tab 10/08/18 [Rx] Diclofenac Sodium Gel [Voltaren Gel] 2 gm TOPICAL QID tube 10/08/18 [Rx] Gabapentin [Neurontin] 200 mg PO TID #7 cap 10/08/18 [Rx] Metoprolol Tartrate [Lopressor] 50 mg PO BID tab 10/08/18 [Rx] Collagenase [Santyl] 1 applic TOPICAL Q24H 10/13/18 [History] Lisinopril-Hctz 20-12.5 mg [Zestoretic 20-12.5] 1 tab PO DAILY 10/13/18 [History ] Ondansetron HCl [Zofran] 4 mg PO DIRECTED PRN 10/13/18 [History] Prostat 30 ml TOPICAL BID 10/13/18 [History] Sertraline HCl [Zoloft] 25 mg PO DAILY 10/13/18 [History] Docusate [Colace] 100 mg PO BID #0 cap 10/17/18 [Rx] Hydrochlorothiazide [Hydrodiuril] 12.5 mg PO DAILY cap 10/17/18 [Rx] Insulin Detemir [Levemir] 12 unit SQ HS@2100 #0 syr 10/17/18 [Rx] Lactulose 15 gm PO DAILY PRN #60 ml 10/17/18 [Rx] traMADol HCL [Ultram] 50 mg PO Q4HR PRN 3 Days #7 tab 10/17/18 [Rx] Follow up Appointment(s)/Referral(s): Ulysses Rose DO [Primary Care Provider] - 1-2 days Liam Juarez MD [STAFF PHYSICIAN] - 1 Week Edgard Oquendo MD [STAFF PHYSICIAN] - 10/23/18 Activity/Diet/Wound Care/Special Instructions: carb consistent diet None weight bearing right arm Medihoney to left glutel ulcer daily and cover, off load wound Toe ulcer keep clean and dry off load wound Feed assistance with meals, instructions on how to feed with one hand Accucheck with meals and at night Encourage oral intake, provider with waterh q4 hours and encourage to drink BMP in 3-5 days DX: NYDIA and hyperkalemia Discharge Disposition: TRANSFER TO SNF/ECF
[2018-10-17 11:40] VITALS: BP 118/60; PULSE 71; TEMP 98.1
[2018-10-17 11:49] LABS: Glucose,Whole Blood 164 mg/dL (75-99)
[2018-10-17 12:35] LABS: Glucose,Whole Blood 182 mg/dL (75-99)
--- NOTE | 2018-10-17 17:40 | PN ---
PROGRESS NOTE DATE OF SERVICE: 10/17/2018. REASON FOR FOLLOWUP: 1. Left diabetic foot ulcer. 2. Left gluteal pressure ulcer stage II. INTERVAL HISTORY: The patient was seen on rounds earlier this afternoon. The patient has been afebrile. She is breathing comfortably. No chest pain. No cough. No abdominal pain. in the left foot area. PHYSICAL EXAMINATION: Blood pressure is 118/60 with a pulse of 71, temperature 98.1. She is 96% on room air. General description is an elderly female up in the chair in no distress. Respiratory system: Unlabored breathing. Clear to auscultation anteriorly. Heart S1, S2. Regular rate and rhythm. Abdomen is soft. No tenderness. Left foot is currently dressed up. No obvious drainage on the dressing. LABS: White count 7.1, creatinine 0.85. DIAGNOSTIC IMPRESSION AND PLAN: 1. Patient with left diabetic foot ulcer currently with dry necrotic skin with no evidence of any cellulitis. Recommend local wound care to keep the area dry. The communicated to her wound care physician, Dr. Oquendo who will be re- evaluating the patient. 2. The patient with a stage II sacral pressure ulcer with no evidence of any cellulitis. Local wound care with Medihoney. Continue supportive care. MMODL / IJN: [id number] /
[2018-10-17] MEDS ORDERED: INSULIN DETEMIR 100 UNIT/ML 10 ML VIAL SQ SCH (21:00)
== END 2018-10-17 15:42 | DRG 683 ==
LOC: EC 16:18 → 3SCARD 19:21
PROVIDERS: ADMIT Family Medicine; ATTEND Family Medicine
DX: N17.0 Acute kidney failure with tubular necrosis (principal); S42.301A Unspecified fracture of shaft of humerus, right arm, initial encounter for closed fracture; E11.52 Type 2 diabetes mellitus with diabetic peripheral angiopathy with gangrene; I13.0 Hypertensive heart and chronic kidney disease with heart failure and stage 1 through stage 4 chronic kidney disease, or unspecified chronic kidney disease; I50.22 Chronic systolic (congestive) heart failure; E11.22 Type 2 diabetes mellitus with diabetic chronic kidney disease; E11.40 Type 2 diabetes mellitus with diabetic neuropathy, unspecified; E11.621 Type 2 diabetes mellitus with foot ulcer; E11.65 Type 2 diabetes mellitus with hyperglycemia; E78.5 Hyperlipidemia, unspecified; E86.0 Dehydration; E87.5 Hyperkalemia; H91.90 Unspecified hearing loss, unspecified ear; I25.10 Atherosclerotic heart disease of native coronary artery without angina pectoris; I48.91 Unspecified atrial fibrillation; K21.9 Gastro-esophageal reflux disease without esophagitis; K59.00 Constipation, unspecified; L89.152 Pressure ulcer of sacral region, stage 2; L97.529 Non-pressure chronic ulcer of other part of left foot with unspecified severity; N18.3 Chronic kidney disease, stage 3 (moderate); T50.2X5A Adverse effect of carbonic-anhydrase inhibitors, benzothiadiazides and other diuretics, initial encounter; Z79.4 Long term (current) use of insulin; Z79.82 Long term (current) use of aspirin; Z79.899 Other long term (current) drug therapy; Z82.49 Family history of ischemic heart disease and other diseases of the circulatory system; Z83.3 Family history of diabetes mellitus; Z85.038 Personal history of other malignant neoplasm of large intestine; Z85.41 Personal history of malignant neoplasm of cervix uteri; Z87.891 Personal history of nicotine dependence; Z90.710 Acquired absence of both cervix and uterus; Z95.810 Presence of automatic (implantable) cardiac defibrillator; Z88.1 Allergy status to other antibiotic agents; Z88.5 Allergy status to narcotic agent; Z90.49 Acquired absence of other specified parts of digestive tract; Z98.42 Cataract extraction status, left eye; Z98.41 Cataract extraction status, right eye; T37.0X5A Adverse effect of sulfonamides, initial encounter
CPT/HCPCS: 36415; 51701; 71045; 74019; 80048; 80053; 81003; 85025; 85027; 93005; 94640; 96361; 96374; 99284

== ENCOUNTER 2019-04-23 22:00 | Observation (INO) | payer MEDICARE, BC ==
--- NOTE | 2019-04-23 23:03 | ED ---
General Adult HPI - General Chief complaint: Extremity Injury, Upper Stated complaint: shoulder pain Time Seen by Provider: 04/23/19 22:17 Source: family, EMS Mode of arrival: EMS Limitations: no limitations - History of Present Illness Initial comments: Dictation was produced using H[employer] dictation software. please excuse any grammatical, word or spelling errors. Chief Complaint: 83-year-old female with multiple comorbidities presents from assisted for nausea vomiting, abdominal pain and left shoulder pain. History of Present Illness: His 83-year-old female she has multiple comorbidities. Patient is status. she was brought here from [facility]. patient had allegedly multiple episodes of nausea vomiting and right upper quadrant abdominal pain today. she is status post cholecystectomy several years ago however she still has stone formation given that she has abnormal morphology of her common bile doubt. patient had his ercp recently with retrieval of multiple gallstones. patient also has complaint of left shoulder pain. she is being transferred and developed left shoulder/left clavicle pain. patient is chronically debilitated. patient states he does have significant left shoulder pain and right upper quadrant pain. patient feels fine at the moment she was given pain medications by ems that has improved her symptoms. discussed patient case with dr. Kebede who is concerned about dehydration. The ROS documented in this emergency department record has been reviewed and confirmed by me. Those systems with pertinent positive or negative responses have been documented in the HPI. All other systems are other negative and/or noncontributory. PHYSICAL EXAM: General Impression: Alert and oriented x3, not in acute distress HEENT: Normocephalic atraumatic, extra-ocular movements intact, pupils equal and reactive to light bilaterally, mucous membranes moist. Cardiovascular: Heart regular rate and rhythm, S1&S2 audible, no murmurs, rubs or gallops Chest: Lungs clear to auscultation bilaterally, no rhonchi, no wheeze, no rales Abdomen: Bowel sounds present, abdomen soft, non-tender, non-distended, no organomegaly Musculoskeletal: Pulses present and equal in all extremities, no peripheral edema, tenderness to palpation of the left mid clavicle. Diffuse tenderness to palpation of the left shoulder, positive abdominal tenderness in the epigastric and right upper quadrant region. Motor: no focal deficits noted Neurological: CN II-XII grossly intact, no focal motor or sensory deficits noted Skin: Intact with no visualized rashes Psych: Normal affect and mood ED course: 83-year-old female presents with left shoulder pain and right upper quadrant pain from the assisted. Vital signs upon arrival are within acceptable limits. Laboratory evaluation obtained. CBC unremarkable coag panel unremarkable. Patient has a history of atrial fibrillation. Medications were reviewed patient is on eliquis. EKG shows atrial fibrillation however this is chronic. Metabo lic panel shows elevated be in to creatinine ratio suggestive of dehydration. Glucose 63. This point is unclear what is causing patient's hypoglycemia however likely caused by insulin, poor intake given recent nausea and vomiting or secondary to medications. Lescol patient was given parenteral glucose. Patient also given intravenous fluids. Rest of labs unremarkable. No concern of biliary duct obstruction. Shoulder x-ray clavicle x-ray chest x-ray and abdominal x-ray was obtained. Chest x-ray positive for vascular congestion with small to moderate pleural effusions. Patient not showing signs of respiratory distress. Patient given some intravenous fluids. We'll have patient admitted for hyperglycemia, dehydration. Request by patient's primary care physician Dr. Kebede. Patient and daughter are understandable and agreeable with disposition. Urine studies are pending. EKG interpretation: Ventricular rate 82, A. fib, QS 92, QTC 408. No ME prolongation, no QTC prolongation, no ST or T-wave changes noted. EKG compared to figure first 2018 showing no changes. Overall, this EKG is unremarkable - Related Data Home Medications Medication Instructions Recorded Confirmed Pentoxifylline 400 mg PO TID@0800,1200,1700 12/13/16 04/23/19 Vit C/E/Zn/Coppr/Lutein/Zeaxan 1 cap PO DAILY@1700 11/10/17 04/23/19 [Preservision Areds 2 Softgel] metFORMIN HCL 1,000 mg PO BID@0800,1700 11/10/17 04/23/19 Ergocalciferol [Vitamin D2 50,000 unit PO WE 09/25/18 04/23/19 (DRISDOL)] Magnesium Oxide [Mag-Ox] 400 mg PO BID@0800,1700 09/25/18 04/23/19 Omeprazole 40 mg PO DAILY@0800 09/25/18 04/23/19 Thiamine [Vitamin B-1] 100 mg PO DAILY@1700 09/25/18 04/23/19 Tolterodine Tartrate [Detrol LA] 4 mg PO DAILY@0800 09/25/18 04/23/19 Vitamin B Complex 1 cap PO DAILY@1700 09/25/18 04/23/19 Collagenase [Santyl] 1 applic TOPICAL Q24H 10/13/18 04/23/19 Ondansetron HCl [Zofran] 4 mg PO QID PRN 10/13/18 04/23/19 Sertraline HCl [Zoloft] 25 mg PO DAILY 10/13/18 04/23/19 Magnesium Hydroxide [Milk of 30 ml PO DIRECTED PRN 11/13/18 04/23/19 Magnesia Concentrate] Na Phos,M-B/Na Phos,Di-Ba [Fleet 1 bottle RECTAL DAILY PRN 11/13/18 04/23/19 Adult] Simethicone 80 mg PO TID@0800,1200,1700 11/27/18 04/23/19 Acetaminophen Tab [Tylenol] 650 mg PO Q6HR PRN 04/23/19 04/23/19 Apixaban [Eliquis] 5 mg PO BID@0800,1700 04/23/19 04/23/19 Aspirin 81 mg PO DAILY@1700 04/23/19 04/23/19 Bisacodyl [Dulcolax] 10 mg RECTAL DAILY PRN 04/23/19 04/23/19 Docusate [Colace] 100 mg PO BID@0800,1700 04/23/19 04/23/19 Furosemide [Lasix] 20 mg PO BID@0600,1400 04/23/19 04/23/19 Gabapentin [Neurontin] 200 mg PO TID@0600,1400,2100 04/23/19 04/23/19 INSULIN ASPART (NovoLOG) [NovoLOG 2 unit SQ AC-TID 04/23/19 04/23/19 (formulary)] Insulin Glargine [Lantus] 8 unit SQ DAILY@0700 04/23/19 04/23/19 Liquacel (Amino Acids) 30 ml PO BID@0800,1700 04/23/19 04/23/19 Lisinopril [Prinivil] 20 mg PO DAILY@0800 04/23/19 04/23/19 Metoprolol Tartrate [Lopressor] 50 mg PO BID@0800,1700 04/23/19 04/23/19 Potassium Chloride ER [K-Dur 10] 10 meq PO BID@0800,1700 04/23/19 04/23/19 Talc-Zinc Oxide Powder 81-15% 1 applic TOPICAL BID@0800,1700 04/23/19 04/23/19 Ursodiol 300 mg PO BID@0800,2100 04/23/19 04/23/19 guaiFENesin [guaiFENesin Oral 200 mg PO Q4H PRN 04/23/19 04/23/19 Solution] Previous Rx's Medication Instructions Recorded Diclofenac Sodium Gel [Voltaren 2 gm TOPICAL QID tube 10/08/18 Gel] traMADol HCL [Ultram] 50 mg PO Q4HR PRN 3 Days #7 tab 10/17/18 Allergies Allergy/AdvReac Type Severity Reaction Status Date / Time levofloxacin [From Levaquin] Allergy Mild Rash/Hives Verified 04/23/19 22:31 morphine Allergy Rapid Verified 04/23/19 22:31 Heart Rate Review of Systems ROS Statement: Those systems with pertinent positive or pertinent negative responses have been documented in the HPI. ROS Other: All systems not noted in ROS Statement are negative. Past Medical History Past Medical History: Atrial Fibrillation, Coronary Artery Disease (CAD), Cancer, Diabetes Mellitus, GERD/Reflux, Hearing Disorder / Deafness, Hyperlipidemia, Hypertension, Osteoarthritis (OA), Skin Disorder Additional Past Medical History / Comment(s): diverticultis, rt arm fx, cervical cancer, pancreatitis, right foot infection, gall stones and removal, FALL/fx coccyx 08-29-17, CONSTIPATION, PAD, RT FOOT (great toe) WOUND HAS BEEN GOING TO THE [facility] , PAST [place],lt. foot wound, yeast in abdominal folds History of Any Multi-Drug Resistant Organisms: ESBL Date of last positivie culture/infection: 01/23/19 ESBL E.coli MDRO Source:: Urine Past Surgical History: AICD, Bowel Resection, Cholecystectomy, Heart Catheterization, Hysterectomy, Orthopedic Surgery Additional Past Surgical History / Comment(s): Internal defibulator 18, LT ROTATOR CUFF X2, BUNIONECTOMY JACQUELINE,, JACQUELINE BREAST LUMPECTOMIES-BOTH NEG,, X2 ERCP, RT HAND SX PINS PLACED-BUT SINCE REMOVED, CATARACTS. 12/01/17 picc line inserted- since removed Past Anesthesia/Blood Transfusion Reactions: No Reported Reaction Type of Cardiac Device: AICD Device Placement Date:: 09-15-17 Past Psychological History: No Psychological Hx Reported Smoking Status: Former smoker Past Alcohol Use History: None Reported Past Drug Use History: None Reported - Past Family History Mother Family Medical History: No Reported History Additional Family Medical History / Comment(s): HEART DISEASE Father Family Medical History: Coronary Artery Disease (CAD), Diabetes Mellitus General Exam Limitations: no limitations Course Vital Signs 04/23/19 04/24/19 04/24/19 22:02 00:47 01:37 Temperature 98.9 F Pulse Rate 80 87 Respiratory 16 17 Rate Blood Pressure 105/74 98/66 110/66 O2 Sat by Pulse 97 95 Oximetry Medical Decision Making - Lab Data Result diagrams: 04/24/19 00:26 04/24/19 00:26 Lab Results 04/24/19 04/24/19 04/24/19 Range/Units 00:26 00:26 00:26 WBC 10.0 (3.8-10.6) k/uL RBC 3.82 (3.80-5.40) m/uL Hgb 11.0 L (11.4-16.0) gm/dL Hct 34.5 (34.0-46.0) % MCV 90.5 (80.0-100.0) fL MCH 28.8 (25.0-35.0) pg MCHC 31.9 (31.0-37.0) g/dL RDW 15.6 H (11.5-15.5) % Plt Count 283 (150-450) k/uL Neutrophils % 70 % Lymphocytes % 17 % Monocytes % 10 % Eosinophils % 2 % Basophils % 0 % Neutrophils # 7.0 (1.3-7.7) k/uL Lymphocytes # 1.7 (1.0-4.8) k/uL Monocytes # 1.0 (0-1.0) k/uL Eosinophils # 0.2 (0-0.7) k/uL Basophils # 0.0 (0-0.2) k/uL PT (9.0-12.0) sec INR (<1.2) APTT (22.0-30.0) sec Sodium 135 L (137-145) mmol/L Potassium 4.4 (3.5-5.1) mmol/L Chloride 101 (98-107) mmol/L Carbon Dioxide 26 (22-30) mmol/L Anion Gap 8 mmol/L BUN 30 H (7-17) mg/dL Creatinine 0.55 (0.52-1.04) mg/dL Est GFR (CKD-EPI)AfAm >90 (>60 ml/min/1.73 sqM) Est GFR (CKD-EPI)NonAf 87 (>60 ml/min/1.73 sqM) Glucose 63 L (74-99) mg/dL Plasma Lactic Acid Lawrence 2.0 (0.7-2.0) mmol/L Calcium 8.6 (8.4-10.2) mg/dL Magnesium 1.6 (1.6-2.3) mg/dL Total Bilirubin 0.4 (0.2-1.3) mg/dL Conjugated Bilirubin 0.0 (0.0-0.3) mg/dL Unconjugated Bilirubin 0.3 (0.0-1.1) mg/dL Delta Bilirubin 0.1 (0.0-0.2) mg/dL AST 13 L (14-36) U/L ALT 14 (9-52) U/L Alkaline Phosphatase 87 (38-126) U/L Troponin I (0.000-0.034) ng/mL Total Protein 5.5 L (6.3-8.2) g/dL Albumin 2.5 L (3.5-5.0) g/dL Lipase 180 (23-300) U/L 04/24/19 04/24/19 Range/Units 00:26 00:26 WBC (3.8-10.6) k/uL RBC (3.80-5.40) m/uL Hgb (11.4-16.0) gm/dL Hct (34.0-46.0) % MCV (80.0-100.0) fL MCH (25.0-35.0) pg MCHC (31.0-37.0) g/dL RDW (11.5-15.5) % Plt Count (150-450) k/uL Neutrophils % % Lymphocytes % % Monocytes % % Eosinophils % % Basophils % % Neutrophils # (1.3-7.7) k/uL Lymphocytes # (1.0-4.8) k/uL Monocytes # (0-1.0) k/uL Eosinophils # (0-0.7) k/uL Basophils # (0-0.2) k/uL PT 11.6 (9.0-12.0) sec INR 1.1 (<1.2) APTT 28.4 (22.0-30.0) sec Sodium (137-145) mmol/L Potassium (3.5-5.1) mmol/L Chloride (98-107) mmol/L Carbon Dioxide (22-30) mmol/L Anion Gap mmol/L BUN (7-17) mg/dL Creatinine (0.52-1.04) mg/dL Est GFR (CKD-EPI)AfAm (>60 ml/min/1.73 sqM) Est GFR (CKD-EPI)NonAf (>60 ml/min/1.73 sqM) Glucose (74-99) mg/dL Plasma Lactic Acid Lawrence (0.7-2.0) mmol/L Calcium (8.4-10.2) mg/dL Magnesium (1.6-2.3) mg/dL Total Bilirubin (0.2-1.3) mg/dL Conjugated Bilirubin (0.0-0.3) mg/dL Unconjugated Bilirubin (0.0-1.1) mg/dL Delta Bilirubin (0.0-0.2) mg/dL AST (14-36) U/L ALT (9-52) U/L Alkaline Phosphatase (38-126) U/L Troponin I <0.012 (0.000-0.034) ng/mL Total Protein (6.3-8.2) g/dL Albumin (3.5-5.0) g/dL Lipase (23-300) U/L Disposition Clinical Impression: Dehydration, Hypoglycemia Disposition: ADMITTED IP TO THIS HOSP Condition: Fair Referrals: Farrukh Kebede MD [Primary Care Provider] - 1-2 days Decision Time: 01:41
--- NOTE | 2019-04-23 23:44 | XR ---
EXAM: XR Abdomen, 2 views CLINICAL HISTORY: ITS.REASON XR Reason: Pain TECHNIQUE: 2 supine views of the abdomen. COMPARISON: No relevant prior studies available. FINDINGS: There is no clear free air on limited supine assessment. Bowel gas pattern is nonobstructive. The colon is aerated, but not pathologically distended. Presumed splenic arterial calcifications. Degenerative changes of the spine and pubic symphysis and to a lesser degree the hips. Separately dictated chest radiograph. IMPRESSION: Nonobstructive bowel gas pattern. No clear free air on supine assessment.
--- NOTE | 2019-04-23 23:45 | XR ---
EXAM: XR Chest, 1 View CLINICAL HISTORY: ITS.REASON XR Reason: Pain TECHNIQUE: Frontal view of the chest. COMPARISON: No relevant prior studies available. FINDINGS: There are small-moderate bilateral pleural effusions. Vascular congestion. The heart is enlarged. There is a single lead pacer device in a left subclavian approach. No pneumothorax. There are chronic- appearing deformities of the ribs and the right humerus. IMPRESSION: Vascular congestion with [id number] pleural effusions. Cardiomegaly. Pacer device.
--- NOTE | 2019-04-23 23:58 | XR ---
EXAM: XR Left Clavicle Complete, 2 or More Views CLINICAL HISTORY: ITS.REASON XR Reason: Pain TECHNIQUE: Frontal and lordotic views of the left clavicle. COMPARISON: No relevant prior studies available. FINDINGS: Bones/joints: Osteopenia. No acute fracture. No dislocation. Degeneration with osteophyte formation at the acromioclavicular joints Soft tissues: Pacer device. IMPRESSION: No fracture
--- NOTE | 2019-04-24 | XR ---
EXAM: XR Left Shoulder Complete, 2 or More Views CLINICAL HISTORY: ITS.REASON XR Reason: Pain TECHNIQUE: Two or more views of the left shoulder. COMPARISON: No relevant prior studies available. FINDINGS: Bones/joints: Osteopenia. No acute fracture. No dislocation. Degeneration of the left acromioclavicular and glenohumeral joints. Soft tissues: Visualized. IMPRESSION: No fracture or dislocation
[2019-04-24 00:42] LABS: Basophils % (A) 0 %; Eosinophils # (A) 0.2 k/uL (0-0.7); Eosinophils % (A) 2 %; HCT 34.5 % (34.0-46.0); Lymphocytes # (A) 1.7 k/uL (1.0-4.8); Lymphocytes % (A) 17 %; MCH 28.8 pg (25.0-35.0); MCHC 31.9 g/dL (31.0-37.0); MCV 90.5 fL (80.0-100.0); Mean Platelet Volume 6.7; Monocytes % (A) 10 %; Neutrophils % (A) 70 %; Platelet Count 283 k/uL (150-450); RBC 3.82 m/uL (3.80-5.40); RDW 15.6 % (11.5-15.5)
[2019-04-24 00:53] LABS: ALT 14 U/L (9-52); AST 13 U/L (14-36); African American GFR (CKD) >90 (>60 ml/min/1.73 sqM); Albumin 2.5 g/dL (3.5-5.0); Alkaline Phosphatase 87 U/L (38-126); Anion Gap 8 mmol/L; Bilirubin, Delta 0.1 mg/dL (0.0-0.2); Bilirubin,Unconjugated 0.3 mg/dL (0.0-1.1); Blood Urea Nitrogen 30 mg/dL (7-17); Calcium 8.6 mg/dL (8.4-10.2); Carbon Dioxide 26 mmol/L (22-30); Chloride 101 mmol/L (98-107); Glucose 63 mg/dL (74-99); Magnesium 1.6 mg/dL (1.6-2.3); Non-African American GFR(CKD) 87 (>60 ml/min/1.73 sqM); Potassium 4.4 mmol/L (3.5-5.1); Sodium 135 mmol/L (137-145); Total Bilirubin 0.4 mg/dL (0.2-1.3); Total Protein 5.5 g/dL (6.3-8.2)
[2019-04-24 00:54] LABS: INR 1.1 (<1.2); Partial Thromboplastin Time 28.4 sec (22.0-30.0); Prothrombin Time 11.6 sec (9.0-12.0)
[2019-04-24] MEDS ORDERED: SODIUM CHLORIDE 0.9% 500 ML IV STA (01:13)
[2019-04-24] MEDS ORDERED: DEXTROSE 50% SYRINGE 50 ML IVP STA (01:13)
[2019-04-24] MEDS ORDERED: NALOXONE 0.4 MG/ML 1 ML VIAL IV PRN (01:41)
[2019-04-24] MEDS ORDERED: ONDANSETRON 4 MG/2 ML VIAL IVP PRN (01:41)
[2019-04-24] MEDS ORDERED: ACETAMINOPHEN TAB 325 MG TAB PO PRN ×2 (01:41→01:42)
[2019-04-24] MEDS ORDERED: ONDANSETRON 4 MG TAB PO PRN (01:42)
[2019-04-24] MEDS ORDERED: SODIUM CHLORIDE 0.9% 1,000 ML IV SCH ×2 (01:45→16:00)
[2019-04-24 02:00] LABS: Glucose,Whole Blood 196 mg/dL (75-99)
[2019-04-24 02:07] VITALS: RESP 18
[2019-04-24] MEDS: FUROSEMIDE 20 MG TAB PO SCH ×2 (06:15→14:19)
[2019-04-24] MEDS: GABAPENTIN 100 MG CAP PO SCH ×3 (06:16→20:13)
[2019-04-24 06:53] LABS: Glucose,Whole Blood 61 mg/dL (75-99)
[2019-04-24 07:18] LABS: Glucose,Whole Blood 58 mg/dL (75-99)
[2019-04-24 07:44] LABS: Glucose,Whole Blood 86 mg/dL (75-99)
[2019-04-24] MEDS: PANTOPRAZOLE 40 MG/10 ML VIAL IV SCH (08:52)
[2019-04-24] MEDS: METOPROLOL TARTRATE 50 MG TAB PO SCH ×2 (08:52→17:09)
[2019-04-24] MEDS: APIXABAN 5 MG TAB PO SCH ×2 (08:52→17:09)
[2019-04-24] MEDS: MAGNESIUM OXIDE 400 MG TAB PO SCH ×2 (08:53→17:07)
[2019-04-24] MEDS: DICLOFENAC SODIUM GEL 100 GM TUBE TOPICAL SCH ×4 (08:54→20:09)
[2019-04-24 10:49] LABS: Appearance,Urine Clear (Clear); Bilirubin,Urine Negative (Negative); Blood,Urine Negative (Negative); Budding Yeast,Urine Few /hpf; Color,Urine Yellow; Glucose,Urine (UA) Negative (Negative); Hyaline Casts,Urine 3 /lpf (0-2); Hyphae Yeast, Urine Rare /hpf; Ketones,Urine Negative (Negative); Leukocyte Esterase,Urine Moderate (Negative); Mucus,Urine Rare /hpf; Nitrite,Urine Negative (Negative); Protein,Urine Negative (Negative); RBC,Urine 1 /hpf (0-5); Specific Gravity,Urine 1.016 (1.001-1.035); WBC,Urine 15 /hpf (0-5)
[2019-04-24 11:42] LABS: Glucose,Whole Blood 94 mg/dL (75-99)
[2019-04-24] MEDS ORDERED: BISACODYL 10 MG SUPP RECTAL STA (15:48)
[2019-04-24] MEDS ORDERED: BISACODYL 10 MG SUPP RECTAL PRN (15:55)
[2019-04-24] MEDS ORDERED: MAGNESIUM HYDROXIDE 2,400 MG/10 ML CUP PO PRN (15:55)
[2019-04-24] MEDS ORDERED: DOCUSATE 100 MG CAP PO PRN (15:55)
[2019-04-24] MEDS ORDERED: guaiFENesin SYRUP 100MG/5ML 200 MG/10 ML CUP PO PRN (15:55)
--- NOTE | 2019-04-24 16:01 | P.HPIM ---
History of Present Illness This is a pleasant 83 years old female with past medical history of diabetes mellitus, hypertension, hyperlipidemia, coronary artery disease. Patient was sent from assisted for nausea vomiting, abdominal pain and left shoulder pain. Patient is poor historian she, she knows where she is at, she knows her name but she cannot give much information and she cannot tell the date. When I saw the patient looks comfortable with no abdominal pain. She is eating and drinking well, however she is a bit sleepy. And she was hypoglycemic this morning in the 50s. As per request patient was on 8 units of Lantus +2 units of NovoLog before meals 3 times a day, also she was on metformin 1000 twice a day which is on hold. Patient Sugar shows low sites 58 this morning, corrected and currently 94 Vitals are stable and patient is afebrile.. CBC, BMP and liver enzymes were unremarkable. Sugar is controlled. Patient has mild hyponatremia at 135. Urine is a slightly suspicious for infection. EKG showing atrial fibrillation with a rate of 82, shoulder x-ray: No fracture, clavicle x-ray: No fracture, abdominal x-ray: Nonobstructive or free air pattern. Chest x-ray: Vascular congestion with small to moderate pleural effusion On admission patient got a bolus of 500 mL of normal saline, and started on normal saline infusion at 60 L/h. She got 1 time dose of D50. Review of Systems CONSTITUTIONAL: No fever, no malaise, no fatigue. HEENT: No recent visual problems or hearing problems. Denied any sore throat. CARDIOVASCULAR: No orthopnea, PND, no palpitations, no syncope. PULMONARY: No shortness of breath, no cough, no hemoptysis. GASTROINTESTINAL: No diarrhea, no nausea, no vomiting, no abdominal pain. Normoactive bowel sounds. NEUROLOGICAL: No headaches, no weakness, no numbness. HEMATOLOGICAL: Denies any bleeding or petechiae. GENITOURINARY: Denies any burning micturition, frequency, or urgency. MUSCULOSKELETAL/RHEUMATOLOGICAL: Denies any joint pain, swelling, or any muscle pain. ENDOCRINE: Denies any polyuria or polydipsia. Past Medical History Past Medical History: Atrial Fibrillation, Coronary Artery Disease (CAD), Cancer, Diabetes Mellitus, GERD/Reflux, Hearing Disorder / Deafness, Hyperlipidemia, Hypertension, Osteoarthritis (OA), Skin Disorder Additional Past Medical History / Comment(s): diverticultis, rt arm fx, cervical cancer, pancreatitis, right foot infection, gall stones and removal, FALL/fx coccyx 08-29-17, CONSTIPATION, PAD, RT FOOT (great toe) WOUND HAS BEEN [facility] TO [facility] , PAST [place],lt. foot wound, yeast in abdominal folds History of Any Multi-Drug Resistant Organisms: ESBL Date of last positivie culture/infection: 01/23/19 ESBL E.coli MDRO Source:: Urine Past Surgical History: AICD, Bowel Resection, Cholecystectomy, Heart Catheterization, Hysterectomy, Orthopedic Surgery Additional Past Surgical History / Comment(s): Internal defibulator 09-15-17, LT ROTATOR CUFF X2, BUNIONECTOMY JACQUELINE,, JACQUELINE BREAST LUMPECTOMIES-BOTH NEG,, X2 ERCP, RT HAND SX PINS PLACED-BUT SINCE REMOVED, CATARACTS. 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 also has a walker, glucometer and monitor for the aicd. Smoking Status: Former smoker Past Alcohol Use History: None Reported Additional Past Alcohol Use History / Comment(s): Smoked sporadically from 1964 till 1967 Past Drug Use History: None Reported - Past Family History Mother Family Medical History: No Reported History Additional Family Medical History / Comment(s): HEART DISEASE Father Family Medical History: Coronary Artery Disease (CAD), Diabetes Mellitus Medications and Allergies Home Medications Medication Instructions Recorded Confirmed Type Pentoxifylline 400 mg PO TID@0800,1200,1700 12/13/16 04/23/19 History Vit C/E/Zn/Coppr/Lutein/Zeaxan 1 cap PO DAILY@1700 11/10/17 04/23/19 History [Preservision Areds 2 Softgel] metFORMIN HCL 1,000 mg PO BID@0800,1700 11/10/17 04/23/19 History Ergocalciferol [Vitamin D2 50,000 unit PO WE 09/25/18 04/23/19 History (DRISDOL)] Magnesium Oxide [Mag-Ox] 400 mg PO BID@0800,1700 09/25/18 04/23/19 History Omeprazole 40 mg PO DAILY@0800 09/25/18 04/23/19 History Thiamine [Vitamin B-1] 100 mg PO DAILY@1700 09/25/18 04/23/19 History Tolterodine Tartrate [Detrol LA] 4 mg PO DAILY@0800 09/25/18 04/23/19 History Vitamin B Complex 1 cap PO DAILY@1700 09/25/18 04/23/19 History Diclofenac Sodium Gel [Voltaren 2 gm TOPICAL QID tube 10/08/18 04/23/19 Rx Gel] Collagenase [Santyl] 1 applic TOPICAL Q24H 10/13/18 04/23/19 History Ondansetron HCl [Zofran] 4 mg PO QID PRN 10/13/18 04/23/19 History Sertraline HCl [Zoloft] 25 mg PO DAILY 10/13/18 04/23/19 History traMADol HCL [Ultram] 50 mg PO Q4HR PRN 3 Days #7 tab 10/17/18 04/23/19 Rx Magnesium Hydroxide [Milk of 30 ml PO DIRECTED PRN 11/13/18 04/23/19 History Magnesia Concentrate] Na Phos,M-B/Na Phos,Di-Ba [Fleet 1 bottle RECTAL DAILY PRN 11/13/18 04/23/19 History Adult] Simethicone 80 mg PO TID@0800,1200,1700 11/27/18 04/23/19 History Acetaminophen Tab [Tylenol] 650 mg PO Q6HR PRN 04/23/19 04/23/19 History Apixaban [Eliquis] 5 mg PO BID@0800,1700 04/23/19 04/23/19 History Aspirin 81 mg PO DAILY@1700 04/23/19 04/23/19 History Bisacodyl [Dulcolax] 10 mg RECTAL DAILY PRN 04/23/19 04/23/19 History Docusate [Colace] 100 mg PO BID@0800,1700 04/23/19 04/23/19 History Furosemide [Lasix] 20 mg PO BID@0600,1400 04/23/19 04/23/19 History Gabapentin [Neurontin] 200 mg PO TID@0600,1400,2100 04/23/19 04/23/19 History INSULIN ASPART (NovoLOG) [NovoLOG 2 unit SQ AC-TID 04/23/19 04/23/19 History (formulary)] Insulin Glargine [Lantus] 8 unit SQ DAILY@0700 04/23/19 04/23/19 History Liquacel (Amino Acids) 30 ml PO BID@0800,1700 04/23/19 04/23/19 History Lisinopril [Prinivil] 20 mg PO DAILY@0800 04/23/19 04/23/19 History Metoprolol Tartrate [Lopressor] 50 mg PO BID@0800,1700 04/23/19 04/23/19 History Potassium Chloride ER [K-Dur 10] 10 meq PO BID@0800,1700 04/23/19 04/23/19 History Talc-Zinc Oxide Powder 81-15% 1 applic TOPICAL BID@0800,1700 04/23/19 04/23/19 History Ursodiol 300 mg PO BID@0800,2100 04/23/19 04/23/19 History guaiFENesin [guaiFENesin Oral 200 mg PO Q4H PRN 04/23/19 04/23/19 History Solution] Allergies Allergy/AdvReac Type Severity Reaction Status Date / Time levofloxacin [From [place]] Allergy Mild Rash/Hives Verified 04/23/19 22:31 morphine Allergy Rapid Verified 04/23/19 22:31 Heart Rate Physical Exam Vitals: Vital Signs Temp Pulse Pulse Resp BP BP Pulse Ox 04/24/19 15:10 98.0 F 66 18 112/68 99 04/24/19 12:00 74 18 04/24/19 08:00 74 18 04/24/19 07:35 97.8 F 74 18 106/60 97 04/24/19 03:07 97.5 F L 65 18 133/78 93 L 04/24/19 02:05 98.4 F 75 18 99 04/24/19 02:00 65 18 04/24/19 01:37 110/66 04/24/19 00:47 87 17 98/66 95 04/23/19 22:02 98.9 F 80 16 105/74 97 Intake and Output 08/04/24/19 04/24/19 06:59 14:59 22:59 Intake Total 730 Balance 730 Intake: Oral 730 Other: Voiding Method Bedpan # Voids 1 GENERAL: The patient is alert and oriented x1-2, not in any acute distress. Well developed, well nourished. HEENT: Pupils are round and equally reacting to light. EOMI. No scleral icterus. No conjunctival pallor. Normocephalic, atraumatic. No pharyngeal erythema. No thyromegaly. CARDIOVASCULAR: S1 and S2 present. No murmurs, rubs, or gallops. PULMONARY: Chest is clear to auscultation, no wheezing or crackles. ABDOMEN: Soft, nontender, nondistended, normoactive bowel sounds. No palpable organomegaly. MUSCULOSKELETAL: No joint swelling or deformity. EXTREMITIES: No cyanosis, clubbing, or pedal edema. NEUROLOGICAL: Gross neurological examination did not reveal any focal deficits. SKIN: No rashes. Results CBC & Chem 7: 04/24/19 00:26 04/24/19 00:26 Labs: Abnormal Lab Results - Last 24 Hours (Table) 04/24/19 04/24/19 04/24/19 Range/Units 00:26 00:26 01:58 Hgb 11.0 L (11.4-16.0) gm/dL RDW 15.6 H (11.5-15.5) % Sodium 135 L (137-145) mmol/L BUN 30 H (7-17) mg/dL Glucose 63 L (74-99) mg/dL POC Glucose (mg/dL) 196 H (75-99) mg/dL AST 13 L (14-36) U/L Total Protein 5.5 L (6.3-8.2) g/dL Albumin 2.5 L (3.5-5.0) g/dL Ur Leukocyte Esterase (Negative) Urine WBC (0-5) /hpf Hyaline Casts (0-2) /lpf Urine Mucus (None) /hpf Urine Yeast (Budding) (None) /hpf 04/24/19 04/24/19 04/24/19 Range/Units 06:50 07:16 10:25 Hgb (11.4-16.0) gm/dL RDW (11.5-15.5) % Sodium (137-145) mmol/L BUN (7-17) mg/dL Glucose (74-99) mg/dL POC Glucose (mg/dL) 61 L 58 L (75-99) mg/dL AST (14-36) U/L Total Protein (6.3-8.2) g/dL Albumin (3.5-5.0) g/dL Ur Leukocyte Esterase Moderate H (Negative) Urine WBC 15 H (0-5) /hpf Hyaline Casts 3 H (0-2) /lpf Urine Mucus Rare H (None) /hpf Urine Yeast (Budding) Few H (None) /hpf Thrombosis Risk Factor Assmnt - Choose All That Apply Any of the Below Risk Factors Present?: No Other Risk Factors: Yes Each Risk Factor Represents 2 Points: Patient confined to bed Each Risk Factor Represents 3 Points: Age 75 years or older Thrombosis Risk Factor Assessment Total Risk Factor Score: 5 Thrombosis Risk Factor Assessment Level: High Risk Assessment and Plan Assessment: Mild gastroenteritis with nausea vomiting and abdominal pain, improving Mild confusion versus baseline dementia. diabetes mellitus with hyperglycemia Hypertension and Hyperlipidemia History of coronary artery disease History of atrial fibrillation Osteoarthritis Plan: This is a pleasant 83 years old female who presents with gastric-LIKE picture. Patient is poor historian, baseline is unknown, so I recommend doing CAT scan of the brain to rule out acute illness especially patient is on Eliquis. And aspirin. Hold insulin and Lantus. Hold metformin. Follow-up sugar. Check CT of the brain as she is on blood thinners and possible confusion although this could be her baseline Labs and medication were reviewed.. Continue same treatment. Continue with symptomatic treatment. Resume home medication. Monitor lytes and vitals. DVT and GI prophylaxis. Further recommendations of the clinical course of the patient DVT prophylaxis: On Eliquis GI Prophylaxis: Protonix Prognosis is guarded
[2019-04-24 16:14] LABS: Glucose,Whole Blood 172 mg/dL (75-99)
[2019-04-24] MEDS ORDERED: ASPIRIN 81 MG PO SCH (17:00)
[2019-04-24] MEDS: PENTOXIFYLLINE 400 MG TABLET.ER PO SCH (17:07)
[2019-04-24] MEDS: POTASSIUM CHLORIDE ER 10 MEQ TAB.ER.PRT PO SCH (17:07)
[2019-04-24] MEDS: SIMETHICONE 80 MG CHEWABLE PO SCH (17:08)
[2019-04-24] MEDS ORDERED: COLLAGENASE 250 UNIT/GM OINTMENT 30 GM TUBE TOPICAL SCH (17:15)
--- NOTE | 2019-04-24 18:56 | CONS ---
DATE OF CONSULTATION: 04/24/2019 This is an 83-year-old white female, well known to me from the wound center. The patient has history of peripheral vascular disease. She had atherectomy in the past and we have been taking care of her local wound care of both lower extremities involving the toes on the lateral aspect of the foot. The patient has been admitted because of dehydration and low lower blood sugar. I was consulted for wound care of both feet. PHYSICAL EXAMINATION: Patient was seen in her room. She is lying comfortably in bed. NECK: Supple. Trachea central. CHEST: Clear. ABDOMEN: Soft. Femorals are 1+ bilateral. The patient has bilateral Doppler signal on the foot. The patient has a wound on the both feet the medial and lateral aspect, and of the toes. We have been using Santyl cream which will continue. If the patient goes back to [facility], we will follow up in the wound clinic. She had already appointment next Tuesday to the Wound Clinic. No surgical intervention needed at this point. Thank you for this consultation. MMODL / IJN: [id number] / WADE
[2019-04-24] MEDS: URSODIOL 300 MG CAP PO SCH (20:13)
[2019-04-24 20:53] LABS: Glucose,Whole Blood 219 mg/dL (75-99)
--- NOTE | 2019-04-24 22:11 | CT ---
EXAMINATION: CT brain wo con DATE AND TIME: 04/24/2019 7:14 PM CLINICAL INDICATION: PHH; poss confusion TECHNIQUE: Standard departmental protocol.; 1099.4; COMPARISON: 09/25/2018 CT FINDINGS: The calvarium is intact. There is no intracranial hemorrhage. There is no intracranial mass or mass effect. No definite new intra-axial or extra-axial attenuation defect. The paranasal sinuses, middle ear cavities, and mastoid sinus air cells are clear. The orbits are unremarkable. IMPRESSION: NO ACUTE PROCESS.
[2019-04-25] MEDS: FUROSEMIDE 20 MG TAB PO SCH ×2 (05:52→15:49)
[2019-04-25] MEDS: GABAPENTIN 100 MG CAP PO SCH ×2 (05:52→15:49)
[2019-04-25 06:44] LABS: Glucose,Whole Blood 254 mg/dL (75-99)
[2019-04-25] MEDS ORDERED: LISINOPRIL 20 MG TAB PO SCH (08:00)
[2019-04-25] MEDS ORDERED: NON FORMULARY DRUG (Omeprazole [Omeprazole] 40 MG) PO SCH (08:00)
[2019-04-25] MEDS: PANTOPRAZOLE 40 MG/10 ML VIAL IV SCH (08:26)
[2019-04-25] MEDS: traMADol 50 MG TAB PO PRN ×2 (08:26→15:48)
[2019-04-25] MEDS: POTASSIUM CHLORIDE ER 10 MEQ TAB.ER.PRT PO SCH (08:27)
[2019-04-25] MEDS: METOPROLOL TARTRATE 50 MG TAB PO SCH (08:27)
[2019-04-25] MEDS: APIXABAN 5 MG TAB PO SCH (08:27)
[2019-04-25] MEDS: MAGNESIUM OXIDE 400 MG TAB PO SCH (08:27)
[2019-04-25] MEDS: SIMETHICONE 80 MG CHEWABLE PO SCH ×2 (08:27→12:17)
[2019-04-25] MEDS: PENTOXIFYLLINE 400 MG TABLET.ER PO SCH ×2 (08:28→12:17)
[2019-04-25] MEDS: URSODIOL 300 MG CAP PO SCH (08:28)
[2019-04-25] MEDS: DICLOFENAC SODIUM GEL 100 GM TUBE TOPICAL SCH ×2 (08:28→15:45)
[2019-04-25 08:41] VITALS: BP 125/63; PULSE 69; TEMP 98.8
[2019-04-25] MEDS ORDERED: SERTRALINE 25 MG TAB PO SCH (09:00)
[2019-04-25] MEDS ORDERED: ERGOCALCIFEROL 50,000 UNIT CAP PO SCH (09:00)
[2019-04-25 11:44] LABS: Glucose,Whole Blood 264 mg/dL (75-99)
[2019-04-25] MEDS ORDERED: LACTULOSE 20 GM/30 ML CUP PO ONE (14:50)
--- NOTE | 2019-04-25 15:03 | P.DS ---
Providers Date of admission: 04/24/19 01:42 Attending physician: Livan Lowery Consults: 04/24/19 15:51 Consult Physician Routine Consulting Provider: Edgard Oquendo Consult Reason/Comments: bilat diabetic foot ulcers Do you want consulting provider notified?: Yes Primary care physician: Farrukh Kebede Hospital Course: Diagnoses: Mild gastroenteritis with nausea vomiting and abdominal pain, resolved Urinary retention. Saldivar catheter is placed Mild confusion versus baseline dementia. Improvement bilateral diabetic foot ulcers diabetes mellitus with hypoglycemia, corrected Hypertension Hyperlipidemia History of coronary artery disease History of atrial fibrillation Osteoarthritis Hospital course: This is a pleasant 83 years old female with past medical history of diabetes mellitus, hypertension, hyperlipidemia, coronary artery disease. Patient was sent from alf for nausea vomiting, abdominal pain and left shoulder pain. Patient is poor historian she, she knows where she is at, she knows her name but she cannot give much information and she cannot tell the date. When I saw the patient looks comfortable with no abdominal pain. She is eating and drinking well, on admission she was on admission patient was hypoglycemic mostly related to her not eating and nausea vomiting. metformin and insulin both Lantus and NovoLog were held and her sugars been corrected. Recommended to discharge the patient on metformin and insulin sliding scale. Patient was treated symptomatically and with parenteral hydration, patient showed interval improvement in her nausea vomiting are resolved, she is able to tolerate diet well. However she still constipation. Supple bowel regiment is provided patient looks at baseline she is confused. Computed tomography scan of the head was done in view of her on Eliquis, result shows no acute process intracranially. Dr. Oquendo vascular surgeon evaluated the patient for her diabetic foot ulcer and he recommended out patient follow-up in the wound clinic. Also patient was found to have urinary retention with more than 500 mL, Saldivar catheter was placed. Recommended renal ultrasound as an outpatient. Serum creatinine is normal at 0.5 and her GFR is 87-90. Patient is back to her baseline. She denies chest pain or dyspnea. No abdominal pain. No leg swelling. No fever. No leukocytosis. And she is hemodynamically stable Initially patient's suspected to have urinary tract infection however urine culture came back showing only skin marifer, no leukocytosis and no fever and patient has no urinary symptoms. No need for antibiotics upon discharge Problems and management plan were discussed with the patient and he verbalized understanding and acceptance Patient was found stable and can be discharged home however he needs follow-up as an outpatient. We recommend patient follow up with her primary care doctor within 1 week. Also recommended that patient follow up with the wound clinic and Dr. Oquendo for her diabetic foot ulcer. Recommended to do renal ultrasound as an outpatient and outpatient follow-up with urologist recommended to lower the Ultram to 25 mg when necessary instead to 50 mg. Gen: patient is a AAOx1-2, no distress CVS: S1-S2, RRR, no murmur Lungs: B/L CTA, no wheezing Abdomen: soft, no distention, no tenderness, positive bowel sounds Extremity: no leg edema or induration. Bilateral diabetic foot ulcer with no signs of inflammation or infection . Dressing is in place Time spent more than 35 minutes Patient Condition at Discharge: Fair Plan - Discharge Summary Discharge Rx Participant: No New Discharge Prescriptions: No Action RX: Pentoxifylline 400 mg PO TID@0800,1200,1700 RX: metFORMIN HCL 1,000 mg PO BID@0800,1700 RX: Vit C/E/Zn/Coppr/Lutein/Zeaxan [Preservision Areds 2 Softgel] 1 cap PO DAILY@1700 RX: Tolterodine Tartrate [Detrol LA] 4 mg PO DAILY@0800 RX: Thiamine [Vitamin B-1] 100 mg PO DAILY@1700 RX: Ergocalciferol [Vitamin D2 (DRISDOL)] 50,000 unit PO WE RX: Omeprazole 40 mg PO DAILY@0800 RX: Magnesium Oxide [Mag-Ox] 400 mg PO BID@0800,1700 RX: Vitamin B Complex 1 cap PO DAILY@1700 RX: Diclofenac Sodium Gel [Voltaren Gel] 2 gm TOPICAL QID tube RX: Sertraline HCl [Zoloft] 25 mg PO DAILY RX: Collagenase [Santyl] 1 applic TOPICAL Q24H RX: Ondansetron HCl [Zofran] 4 mg PO QID PRN PRN Reason: Nausea RX: traMADol HCL [Ultram] 50 mg PO Q4HR PRN 3 Days #7 tab PRN Reason: Severe Pain Magnesium Hydroxide [Milk of Magnesia Concentrate] 30 ml PO DIRECTED PRN PRN Reason: Constipation Na Phos,M-B/Na Phos,Di-Ba [Fleet Adult] 1 bottle RECTAL DAILY PRN PRN Reason: Constipation RX: Simethicone 80 mg PO TID@0800,1200,1700 RX: Acetaminophen Tab [Tylenol] 650 mg PO Q6HR PRN PRN Reason: Pain guaiFENesin [guaiFENesin Oral Solution] 200 mg PO Q4H PRN PRN Reason: Cough INSULIN ASPART (NovoLOG) [NovoLOG (formulary)] 2 unit SQ AC-TID Gabapentin [Neurontin] 200 mg PO TID@0600,1400,2100 Bisacodyl [Dulcolax] 10 mg RECTAL DAILY PRN PRN Reason: Constipation RX: Ursodiol 300 mg PO BID@0800,2100 Talc-Zinc Oxide Powder 81-15% 1 applic TOPICAL BID@0800,1700 Potassium Chloride ER [K-Dur 10] 10 meq PO BID@0800,1700 RX: Metoprolol Tartrate [Lopressor] 50 mg PO BID@0800,1700 Liquacel (Amino Acids) 30 ml PO BID@0800,1700 Furosemide [Lasix] 20 mg PO BID@0600,1400 Lisinopril [Prinivil] 20 mg PO DAILY@0800 RX: Docusate [Colace] 100 mg PO BID@0800,1700 Apixaban [Eliquis] 5 mg PO BID@0800,1700 Insulin Glargine [Lantus] 8 unit SQ DAILY@0700 RX: Aspirin 81 mg PO DAILY@1700 Discharge Medication List RX: Pentoxifylline 400 mg PO TID@0800,1200,1700 12/13/16 [History] RX: Vit C/E/Zn/Coppr/Lutein/Zeaxan [Preservision Areds 2 Softgel] 1 cap PO DAILY@1700 11/10/17 [History] RX: metFORMIN HCL 1,000 mg PO BID@0800,1700 11/10/17 [History] RX: Ergocalciferol [Vitamin D2 (DRISDOL)] 50,000 unit PO WE 09/25/18 [History] RX: Magnesium Oxide [Mag-Ox] 400 mg PO BID@0800,1700 09/25/18 [History] RX: Omeprazole 40 mg PO DAILY@0800 09/25/18 [History] RX: Thiamine [Vitamin B-1] 100 mg PO DAILY@1700 09/25/18 [History] RX: Tolterodine Tartrate [Detrol LA] 4 mg PO DAILY@0800 09/25/18 [History] RX: Vitamin B Complex 1 cap PO DAILY@1700 09/25/18 [History] RX: Diclofenac Sodium Gel [Voltaren Gel] 2 gm TOPICAL QID tube 10/08/18 [Rx] RX: Collagenase [Santyl] 1 applic TOPICAL Q24H 10/13/18 [History] RX: Ondansetron HCl [Zofran] 4 mg PO QID PRN 10/13/18 [History] RX: Sertraline HCl [Zoloft] 25 mg PO DAILY 10/13/18 [History] RX: traMADol HCL [Ultram] 50 mg PO Q4HR PRN 3 Days #7 tab 10/17/18 [Rx] Magnesium Hydroxide [Milk of Magnesia Concentrate] 30 ml PO DIRECTED PRN 11/13/18 [History] Na Phos,M-B/Na Phos,Di-Ba [Fleet Adult] 1 bottle RECTAL DAILY PRN 11/13/18 [History] RX: Simethicone 80 mg PO TID@0800,1200,1700 11/27/18 [History] Apixaban [Eliquis] 5 mg PO BID@0800,1700 04/23/19 [History] Bisacodyl [Dulcolax] 10 mg RECTAL DAILY PRN 04/23/19 [History] Furosemide [Lasix] 20 mg PO BID@0600,1400 04/23/19 [History] Gabapentin [Neurontin] 200 mg PO TID@0600,1400,2100 04/23/19 [History] INSULIN ASPART (NovoLOG) [NovoLOG (formulary)] 2 unit SQ AC-TID 04/23/19 [History] Insulin Glargine [Lantus] 8 unit SQ DAILY@0700 04/23/19 [History] Liquacel (Amino Acids) 30 ml PO BID@0800,1700 04/23/19 [History] Lisinopril [Prinivil] 20 mg PO DAILY@0800 04/23/19 [History] Potassium Chloride ER [K-Dur 10] 10 meq PO BID@0800,1700 04/23/19 [History] RX: Acetaminophen Tab [Tylenol] 650 mg PO Q6HR PRN 04/23/19 [History] RX: Aspirin 81 mg PO DAILY@17004/23/19 [History] RX: Docusate [Colace] 100 mg PO BID@0800,17004/23/19 [History] RX: Metoprolol Tartrate [Lopressor] 50 mg PO BID@0800,17004/23/19 [History] RX: Ursodiol 300 mg PO BID@0800,2100 04/23/19 [History] Talc-Zinc Oxide Powder 81-15% 1 applic TOPICAL BID@0800,17004/23/19 [History] guaiFENesin [guaiFENesin Oral Solution] 200 mg PO Q4H PRN 04/23/19 [History] Follow up Appointment(s)/Referral(s): Farrukh Kebede MD [Primary Care Provider] - 1-2 days
[2019-04-25 16:30] LABS: Glucose,Whole Blood 340 mg/dL (75-99)
== END 2019-04-25 17:08 ==
LOC: EC 22:00 → 1SOBS 04-24 01:42
PROVIDERS: ADMIT Hospitalist; ATTEND Hospitalist
DX: K52.9 Noninfective gastroenteritis and colitis, unspecified (principal); E11.649 Type 2 diabetes mellitus with hypoglycemia without coma; E11.65 Type 2 diabetes mellitus with hyperglycemia; I48.2 Chronic atrial fibrillation; I25.10 Atherosclerotic heart disease of native coronary artery without angina pectoris; I11.9 Hypertensive heart disease without heart failure; E87.1 Hypo-osmolality and hyponatremia; J90 Pleural effusion, not elsewhere classified; E78.5 Hyperlipidemia, unspecified; M25.512 Pain in left shoulder; E11.621 Type 2 diabetes mellitus with foot ulcer; L97.519 Non-pressure chronic ulcer of other part of right foot with unspecified severity; L97.529 Non-pressure chronic ulcer of other part of left foot with unspecified severity; E11.51 Type 2 diabetes mellitus with diabetic peripheral angiopathy without gangrene; R33.9 Retention of urine, unspecified; M19.90 Unspecified osteoarthritis, unspecified site; K21.9 Gastro-esophageal reflux disease without esophagitis; H91.90 Unspecified hearing loss, unspecified ear; M85.80 Other specified disorders of bone density and structure, unspecified site; R41.0 Disorientation, unspecified; K59.00 Constipation, unspecified; Z79.82 Long term (current) use of aspirin; Z79.01 Long term (current) use of anticoagulants; Z79.4 Long term (current) use of insulin; Z79.899 Other long term (current) drug therapy; Z88.1 Allergy status to other antibiotic agents; Z88.5 Allergy status to narcotic agent; Z74.01 Bed confinement status; Z87.891 Personal history of nicotine dependence; Z95.810 Presence of automatic (implantable) cardiac defibrillator; Z90.49 Acquired absence of other specified parts of digestive tract; Z87.19 Personal history of other diseases of the digestive system; Z85.41 Personal history of malignant neoplasm of cervix uteri; Z87.81 Personal history of (healed) traumatic fracture; Z16.12 Extended spectrum beta lactamase (ESBL) resistance; Z90.710 Acquired absence of both cervix and uterus; Z98.49 Cataract extraction status, unspecified eye; Z82.49 Family history of ischemic heart disease and other diseases of the circulatory system; Z83.3 Family history of diabetes mellitus
CPT/HCPCS: 96365; 96366; 96375 ×2; 96376; 96361; 99285; 36415; 93005; 80053; 82248; 83605; 83690; 83735; 84484; 85025; 85610; 85730; 81001; 87086; 73030; 73000; 71045; 74018; 70450; G0378 ×2; J0696; C9113 ×2; 96374

== ENCOUNTER 2019-04-28 16:32 | Inpatient (IN) | payer MEDICARE, BC ==
[2019-04-28 16:39] LABS: Glucose,Whole Blood 146 mg/dL (75-99)
--- NOTE | 2019-04-28 16:47 | ED ---
General Adult HPI - General Stated complaint: UNRESPONSIVE Time Seen by Provider: 04/28/19 16:34 - History of Present Illness Initial comments: Dictation was produced using [employer] dictation software. please excuse any grammatical, word or spelling errors. Chief Complaint: 83-year-old female presents with being unresponsive. History of Present Illness: 83-year-old female sent in from senior care. She was found to be unresponsive at the senior care. Patient is brought in from [facility]. Patient is a no code however she is brought to the emergency department. Request by family. Patient was recently admitted discharged from our facility for mild hypoglycemia, nausea and vomiting. Patient unable to provide HPI this time secondary to mental status. Blood pressures at the senior care were significantly low. EMS reports that her blood pressure was measured to be 40s and 50s systolic. She has past medical history of A. fib, diabetes. AICD. He missed reports that her sugar was checked at the senior care found to be 132. PHYSICAL EXAM: General Impression: Lethargic HEENT: Normocephalic atraumatic, extra-ocular movements intact, pupils equal and reactive to light bilaterally, dry mucous membranes Cardiovascular: Heart regular rate and rhythm, S1&S2 audible, no murmurs, rubs or gallops Chest: Lungs clear to auscultation bilaterally, no rhonchi, no wheeze, no rales Abdomen: Bowel sounds present, abdomen soft, non-tender, non-distended, no organomegaly Musculoskeletal: Weak and thready pulses, no peripheral edema Motor: no focal deficits noted Neurological: no focal motor or sensory deficits noted Skin: Intact with no visualized rashes, pale ED course: 83-year-old female who is currently DO NOT RESUSCITATE status transferred from senior care for being unresponsive. Vital signs upon arrival shows blood pressure of 48/20, heart rate of 135. She is 90% on room air. Patient at bedside couple minutes after patient's arrival. They endorse that patient is no code and a sense that they don't want CPR, central venous catheter, vasopressors or mechanical ventilation. They are willing to have medical treatments performed. Discussed with family that if patient was full code she would receive cardioversion for unstable atrial fibrillation. They wanted some time to decide if they want to have this procedure performed. They are agreeable to medical therapy. Patient received intravenous fluids with Minimal improvement. Laboratory evaluation obtained mild leukocytosis of 13.9 slightly secondary to stress. Coag panel unremarkable. The gas shows pH of 7.28 with a pCO2 of 52. Discussed concerning for respiratory acidosis. Metabolic panel shows lactic acidosis of 6.1. Rest of labs are unremarkable. Chest x-ray shows signs of congestive heart failure. CT of the abdomen and pelvis was obtained showing trace fluid consolidation and atelectasis in the lower lobes. Otherwise no other findings. He should still continues to be hypotensive. Family does not want any more intervention to be performed. Patient be admitted for hospice care. Hospice was consult it. Discussed patient care with because that was went except patient's care. EKG shows atrial fibrillation rapid ventricular rate 139, QS 90, QTc 505 - Related Data Home Medications Medication Instructions Recorded Confirmed Pentoxifylline 400 mg PO TID@0800,1200,1700 12/13/16 04/28/19 Vit C/E/Zn/Coppr/Lutein/Zeaxan 1 cap PO DAILY@1700 11/10/17 04/28/19 [Preservision Areds 2 Softgel] metFORMIN HCL 1,000 mg PO BID@0800,1700 11/10/17 04/28/19 Ergocalciferol [Vitamin D2 50,000 unit PO WE 09/25/18 04/28/19 (DRISDOL)] Magnesium Oxide [Mag-Ox] 400 mg PO BID@0800,1700 09/25/18 04/28/19 Omeprazole 40 mg PO DAILY@0800 09/25/18 04/28/19 Thiamine [Vitamin B-1] 100 mg PO DAILY@1700 09/25/18 04/28/19 Tolterodine Tartrate [Detrol LA] 4 mg PO DAILY@0800 09/25/18 04/28/19 Vitamin B Complex 1 cap PO DAILY@1700 09/25/18 04/28/19 Collagenase [Santyl] 1 applic TOPICAL Q24H 10/13/18 04/28/19 Ondansetron HCl [Zofran] 4 mg PO QID PRN 10/13/18 04/28/19 Sertraline HCl [Zoloft] 25 mg PO DAILY 10/13/18 04/28/19 Magnesium Hydroxide [Milk of 30 ml PO Q48H PRN 11/13/18 04/28/19 Magnesia Concentrate] Na Phos,M-B/Na Phos,Di-Ba [Fleet 1 dose RECTAL DAILY PRN 11/13/18 04/28/19 Adult] Simethicone 80 mg PO TID@0800,1200,1700 11/27/18 04/28/19 Apixaban [Eliquis] 5 mg PO BID@0800,1700 04/23/19 04/28/19 Aspirin 81 mg PO DAILY@1700 04/23/19 04/28/19 Bisacodyl [Dulcolax] 10 mg RECTAL DAILY PRN 04/23/19 04/28/19 Docusate [Colace] 100 mg PO BID@0800,1700 04/23/19 04/28/19 Furosemide [Lasix] 20 mg PO BID@0600,1400 04/23/19 04/28/19 Gabapentin [Neurontin] 200 mg PO TID@0600,1400,2100 04/23/19 04/28/19 Liquacel (Amino Acids) 30 ml PO BID@0800,1700 04/23/19 04/28/19 Lisinopril [Prinivil] 20 mg PO DAILY@0800 04/23/19 04/28/19 Metoprolol Tartrate [Lopressor] 50 mg PO BID@0800,1700 04/23/19 04/28/19 Potassium Chloride ER [K-Dur 10] 10 meq PO BID@0800,1700 04/23/19 04/28/19 Talc-Zinc Oxide Powder 81-15% 1 applic TOPICAL BID@0800,1700 04/23/19 04/28/19 Ursodiol 300 mg PO BID@0800,2100 04/23/19 04/28/19 guaiFENesin [guaiFENesin Oral 200 mg PO Q4H PRN 04/23/19 04/28/19 Solution] Midodrine HCl [ProAmantine] 2.5 mg PO BID 04/28/19 04/28/19 Previous Rx's Medication Instructions Recorded Diclofenac Sodium Gel [Voltaren 2 gm TOPICAL QID tube 10/08/18 Gel] Acetaminophen Tab [Tylenol] 325 mg PO Q6HR PRN tab 04/25/19 INSULIN ASPART (NovoLOG) [NovoLOG See Protocol SQ AC-TID #1 vial 04/25/19 (formulary)] traMADol HCL [Ultram] 25 mg PO Q4HR PRN 2 Days #8 tab 04/25/19 Allergies Allergy/AdvReac Type Severity Reaction Status Date / Time levofloxacin [From Levaquin] Allergy Mild Rash/Hives Verified 04/28/19 17:28 morphine AdvReac Rapid Verified 04/28/19 17:28 Heart Rate Review of Systems ROS Statement: Those systems with pertinent positive or pertinent negative responses have been documented in the HPI. ROS Other: All systems not noted in ROS Statement are negative. Past Medical History Past Medical History: Atrial Fibrillation, Coronary Artery Disease (CAD), Cancer, Diabetes Mellitus, GERD/Reflux, Hearing Disorder / Deafness, Hyperlipidemia, Hypertension, Osteoarthritis (OA), Skin Disorder Additional Past Medical History / Comment(s): diverticultis, rt arm fx, cervical cancer, pancreatitis, right foot infection, gall stones and removal, FALL/fx co ccyx 08-29-17, CONSTIPATION, PAD, RT FOOT (great toe) WOUND HAS BEEN GOING TO [facility] , PAST GALLSTONES,lt. foot wound, yeast in abdominal folds History of Any Multi-Drug Resistant Organisms: ESBL Date of last positivie culture/infection: 01/23/19 ESBL E.coli MDRO Source:: Urine Past Surgical History: AICD, Bowel Resection, Cholecystectomy, Heart Catheterization, Hysterectomy, Orthopedic Surgery Additional Past Surgical History / Comment(s): Internal defibulator 09-15-17, LT ROTATOR CUFF X2, BUNIONECTOMY JACQUELINE,, JACQUELINE BREAST LUMPECTOMIES-BOTH NEG,, X2 ERCP, RT HAND SX PINS PLACED-BUT SINCE REMOVED, CATARACTS. 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 also has a walker, glucometer and monitor for the aicd. Smoking Status: Former smoker Past Alcohol Use History: None Reported Additional Past Alcohol Use History / Comment(s): Smoked sporadically from 1964 till 1967 Past Drug Use History: None Reported - Past Family History Mother Family Medical History: No Reported History Additional Family Medical History / Comment(s): HEART DISEASE Father Family Medical History: Coronary Artery Disease (CAD), Diabetes Mellitus Course Vital Signs 04/28/19 04/28/19 04/28/19 16:32 17:00 17:10 Temperature 97.6 F Pulse Rate 135 H 128 H 118 H Respiratory 22 39 H 30 H Rate Blood Pressure 48/20 115/102 57/31 O2 Sat by Pulse 90 L 67 L 93 L Oximetry 04/28/19 04/28/19 04/28/19 17:20 17:30 17:40 Temperature Pulse Rate 151 H 131 H 128 H Respiratory 36 H 30 H 31 H Rate Blood Pressure 56/43 110/59 107/69 O2 Sat by Pulse 94 L 95 94 L Oximetry 04/28/19 04/28/19 17:50 18:29 Temperature Pulse Rate 124 H 112 H Respiratory 31 H 20 Rate Blood Pressure 68/27 68/42 O2 Sat by Pulse 96 92 L Oximetry Medical Decision Making - Lab Data Result diagrams: 04/28/19 16:17 04/28/19 16:17 Lab Results 04/28/19 04/28/19 04/28/19 Range/Units 16:17 16:17 16:17 WBC 13.9 H (3.8-10.6) k/uL RBC 5.03 (3.80-5.40) m/uL Hgb 14.4 (11.4-16.0) gm/dL Hct 47.0 H (34.0-46.0) % MCV 93.4 (80.0-100.0) fL MCH 28.7 (25.0-35.0) pg MCHC 30.7 L (31.0-37.0) g/dL RDW 15.4 (11.5-15.5) % Plt Count 374 (150-450) k/uL Neutrophils % 70 % Lymphocytes % 22 % Monocytes % 5 % Eosinophils % 1 % Basophils % 0 % Neutrophils # 9.8 H (1.3-7.7) k/uL Lymphocytes # 3.0 (1.0-4.8) k/uL Monocytes # 0.7 (0-1.0) k/uL Eosinophils # 0.2 (0-0.7) k/uL Basophils # 0.1 (0-0.2) k/uL Hypochromasia Slight PT (9.0-12.0) sec INR (<1.2) APTT (22.0-30.0) sec VBG pH (7.31-7.41) VBG pCO2 (37-51) mmHg VBG HCO3 (24-28) mmol/L Sodium 135 L (137-145) mmol/L Potassium 4.5 (3.5-5.1) mmol/L Chloride 98 (98-107) mmol/L Carbon Dioxide 24 (22-30) mmol/L Anion Gap 13 mmol/L BUN 23 H (7-17) mg/dL Creatinine 0.75 (0.52-1.04) mg/dL Est GFR (CKD-EPI)AfAm 85 (>60 ml/min/1.73 sqM) Est GFR (CKD-EPI)NonAf 74 (>60 ml/min/1.73 sqM) Glucose 166 H (74-99) mg/dL POC Glucose (mg/dL) (75-99) mg/dL POC Glu Hydraulic Blocker ID Plasma Lactic Acid Lawrence 6.1 H* (0.7-2.0) mmol/L Calcium 9.2 (8.4-10.2) mg/dL Magnesium 1.6 (1.6-2.3) mg/dL Total Bilirubin 0.4 (0.2-1.3) mg/dL AST 22 (14-36) U/L ALT 11 (9-52) U/L Alkaline Phosphatase 128 H (38-126) U/L Creatine Kinase 27 L (30-135) U/L Troponin I (0.000-0.034) ng/mL Total Protein 6.3 (6.3-8.2) g/dL Albumin 2.9 L (3.5-5.0) g/dL Lipase (23-300) U/L 04/28/19 04/28/19 04/28/19 Range/Units 16:17 16:17 16:17 WBC (3.8-10.6) k/uL RBC (3.80-5.40) m/uL Hgb (11.4-16.0) gm/dL Hct (34.0-46.0) % MCV (80.0-100.0) fL MCH (25.0-35.0) pg MCHC (31.0-37.0) g/dL RDW (11.5-15.5) % Plt Count (150-450) k/uL Neutrophils % % Lymphocytes % % Monocytes % % Eosinophils % % Basophils % % Neutrophils # (1.3-7.7) k/uL Lymphocytes # (1.0-4.8) k/uL Monocytes # (0-1.0) k/uL Eosinophils # (0-0.7) k/uL Basophils # (0-0.2) k/uL Hypochromasia PT 12.6 H (9.0-12.0) sec INR 1.2 H (<1.2) APTT 22.5 (22.0-30.0) sec VBG pH 7.28 L (7.31-7.41) VBG pCO2 52 H (37-51) mmHg VBG HCO3 24 (24-28) mmol/L Sodium (137-145) mmol/L Potassium (3.5-5.1) mmol/L Chloride (98-107) mmol/L Carbon Dioxide (22-30) mmol/L Anion Gap mmol/L BUN (7-17) mg/dL Creatinine (0.52-1.04) mg/dL Est GFR (CKD-EPI)AfAm (>60 ml/min/1.73 sqM) Est GFR (CKD-EPI)NonAf (>60 ml/min/1.73 sqM) Glucose (74-99) mg/dL POC Glucose (mg/dL) (75-99) mg/dL POC Glu Hydraulic Blocker ID Plasma Lactic Acid Lawrence (0.7-2.0) mmol/L Calcium (8.4-10.2) mg/dL Magnesium (1.6-2.3) mg/dL Total Bilirubin (0.2-1.3) mg/dL AST (14-36) U/L ALT (9-52) U/L Alkaline Phosphatase (38-126) U/L Creatine Kinase (30-135) U/L Troponin I <0.012 (0.000-0.034) ng/mL Total Protein (6.3-8.2) g/dL Albumin (3.5-5.0) g/dL Lipase (23-300) U/L 04/28/19 04/28/19 Range/Units 16:17 16:38 WBC (3.8-10.6) k/uL RBC (3.80-5.40) m/uL Hgb (11.4-16.0) gm/dL Hct (34.0-46.0) % MCV (80.0-100.0) fL MCH (25.0-35.0) pg MCHC (31.0-37.0) g/dL RDW (11.5-15.5) % Plt Count (150-450) k/uL Neutrophils % % Lymphocytes % % Monocytes % % Eosinophils % % Basophils % % Neutrophils # (1.3-7.7) k/uL Lymphocytes # (1.0-4.8) k/uL Monocytes # (0-1.0) k/uL Eosinophils # (0-0.7) k/uL Basophils # (0-0.2) k/uL Hypochromasia PT (9.0-12.0) sec INR (<1.2) APTT (22.0-30.0) sec VBG pH (7.31-7.41) VBG pCO2 (37-51) mmHg VBG HCO3 (24-28) mmol/L Sodium (137-145) mmol/L Potassium (3.5-5.1) mmol/L Chloride (98-107) mmol/L Carbon Dioxide (22-30) mmol/L Anion Gap mmol/L BUN (7-17) mg/dL Creatinine (0.52-1.04) mg/dL Est GFR (CKD-EPI)AfAm (>60 ml/min/1.73 sqM) Est GFR (CKD-EPI)NonAf (>60 ml/min/1.73 sqM) Glucose (74-99) mg/dL POC Glucose (mg/dL) 146 H (75-99) mg/dL POC Glu Hydraulic Blocker ID Krissy Bob Plasma Lactic Acid Lawrence (0.7-2.0) mmol/L Calcium (8.4-10.2) mg/dL Magnesium (1.6-2.3) mg/dL Total Bilirubin (0.2-1.3) mg/dL AST (14-36) U/L ALT (9-52) U/L Alkaline Phosphatase (38-126) U/L Creatine Kinase (30-135) U/L Troponin I (0.000-0.034) ng/mL Total Protein (6.3-8.2) g/dL Albumin (3.5-5.0) g/dL Lipase 98 (23-300) U/L Disposition Clinical Impression: Atrial fibrillation with RVR, End of life care Disposition: ADMITTED IP TO THIS [facility] Condition: Critical Referrals: Farrukh Kebede MD [Primary Care Provider] - 1-2 days Decision Time: 19:25
[2019-04-28] MEDS ORDERED: SODIUM CHLORIDE 0.9% 1,000 ML IV ONE ×2 (16:53→17:00)
[2019-04-28 17:23] LABS: Basophils # (A) 0.1 k/uL (0-0.2); Basophils % (A) 0 %; Eosinophils # (A) 0.2 k/uL (0-0.7); Eosinophils % (A) 1 %; HGB 14.4 gm/dL (11.4-16.0); Hypochromasia Slight; Lymphocytes % (A) 22 %; MCH 28.7 pg (25.0-35.0); MCHC 30.7 g/dL (31.0-37.0); MCV 93.4 fL (80.0-100.0); Monocytes # (A) 0.7 k/uL (0-1.0); Monocytes % (A) 5 %; Neutrophils # (A) 9.8 k/uL (1.3-7.7); Neutrophils % (A) 70 %; Platelet Count 374 k/uL (150-450); RBC 5.03 m/uL (3.80-5.40); RDW 15.4 % (11.5-15.5); WBC 13.9 k/uL (3.8-10.6)
--- NOTE | 2019-04-28 17:24 | XR ---
EXAMINATION TYPE: XR chest 1V portable DATE OF EXAM: 04/28/2019 COMPARISON: 04/23/2019 HISTORY: Difficulty breathing TECHNIQUE: Single frontal view of the chest is obtained. FINDINGS: There are bilateral pleural effusions. Heart is enlarged. There is left axillary pacemaker with the lead tip over the right ventricle. There are multiple old right-sided rib fractures. IMPRESSION: Changes consistent with congestive heart failure with improvement in the pulmonary conge stion compared to last exam.
[2019-04-28 17:28] LABS: VBG PH 7.28 (7.31-7.41)
[2019-04-28 17:35] LABS: INR 1.2 (<1.2); Partial Thromboplastin Time 22.5 sec (22.0-30.0); Prothrombin Time 12.6 sec (9.0-12.0)
[2019-04-28 17:36] LABS: Albumin 2.9 g/dL (3.5-5.0); Calcium 9.2 mg/dL (8.4-10.2); Magnesium 1.6 mg/dL (1.6-2.3); Potassium 4.5 mmol/L (3.5-5.1); Total Bilirubin 0.4 mg/dL (0.2-1.3); Total Protein 6.3 g/dL (6.3-8.2)
[2019-04-28] MEDS ORDERED: ONDANSETRON 4 MG/2 ML VIAL IVP STA (17:58)
[2019-04-28] MEDS ORDERED: DEXTROSE 5% IN WATER 100 ML with AMIODARONE 150 MG IV ONE (18:01)
[2019-04-28] MEDS ORDERED: AMIODARONE 360 MG in DEXTROSE 5% IN WATER 200 ML IV ONE ×2 (18:02)
--- NOTE | 2019-04-28 18:40 | CT ---
EXAMINATION TYPE: CT abdomen pelvis w con DATE OF EXAM: 04/28/2019 COMPARISON: 10/03/2018 HISTORY: abdominal pain, nausea, vomiting. hx of cervical ca, pancreatitis. CT DLP: 1151.6 mGycm Automated exposure control for dose reduction was used. TECHNIQUE: Helical acquisition of images was performed from the lung bases through the pelvis. CONTRAST: Performed without Oral Contrast and with IV Contrast, patient injected with 100 mL of Isovue 300. FINDINGS: There are large bilateral pleural effusions. There is basilar pulmonary infiltrates and atelectasis. Heart is enlarged. There is right lower lobe consolidation and atelectasis. There is air in the anterior biliary tree. There are multiple calcifications in the pancreas consiste nt with chronic pancreatitis. There is no focal liver defect. Spleen appears normal. There is no adrenal mass. There are multiple bilateral renal cortical cysts that measure up to 6.5 cm . There is no hydronephrosis. Ureters are not dilated. There is no evidence of retroperitoneal adenop athy. There is no ascites. There is retained fecal material in the sigmoid colon and transverse colon and descending colon. There is no evidence of free air. There is right lower quadrant anterior abdominal wall hernia contai ns multiple loops of small bowel. I see no sign of small bowel obstruction. There is multilevel lumbar spondylotic changes. There is no significant compression deformity. Bony p ori is intact. Bladder distends smoothly. There is no inguinal adenopathy. IMPRESSION: THERE IS EVIDENCE OF CONSTIPATION SIMILAR TO OLD EXAM. ATHEROSCLEROTIC VASCULAR DISEASE. RIGHT LOWER QUADRANT VENTRAL HERNIA UNCHANGED. CHANGES IN THE PANCREAS CONSISTENT WITH CHRONIC PANCREATITIS UNCHANGED. THERE IS AIR IN THE BILIARY T REE THAT IS A CHANGE COMPARED TO OLD EXAM AND CONSISTENT WITH REFLUX. THERE IS SIGNIFICANT INCREASED PLEURAL FLUID AND CONSOLIDATION AND ATELECTASIS IN THE LOWER LOBES COM PARED TO OLD EXAM AND CONSISTENT WITH CHRONIC CONGESTIVE HEART FAILURE.
[2019-04-28] MEDS ORDERED: NALOXONE 0.4 MG/ML 1 ML VIAL IV PRN (19:19)
[2019-04-28] MEDS ORDERED: fentaNYL (PF) 50 MCG/ML 5 ML AMP IVP PRN (19:20)
[2019-04-28] MEDS: SODIUM CHLORIDE 0.9% 1,000 ML IV SCH (21:46)
[2019-04-28 23:05] LABS: Mucus,Urine Moderate /hpf; RBC,Urine 22 /hpf (0-5); WBC,Urine >182 /hpf (0-5)
[2019-04-28 23:07] LABS: Appearance,Urine Turbid (Clear); Bilirubin,Urine Negative (Negative); Blood,Urine Moderate (Negative); Budding Yeast,Urine Many /hpf; Color,Urine Yellow; Glucose,Urine (UA) Negative (Negative); Ketones,Urine Negative (Negative); Leukocyte Esterase,Urine Large (Negative); Nitrite,Urine Negative (Negative); Protein,Urine 1+ (Negative); Specific Gravity,Urine 1.017 (1.001-1.035); Urobilinogen,Urine <2.0 mg/dL (<2.0)
[2019-04-28] MEDS: NOREPINEPHRINE 4 MG in SODIUM CHLORIDE 0.9% 250 ML IV SCH (23:20)
[2019-04-28 23:33] LABS: Glucose,Whole Blood 192 mg/dL (75-99)
[2019-04-29] MEDS: MEROPENEM 1 GM in SODIUM CHLORIDE 0.9% 100 ML IVPB SCH ×2 (00:40→13:36)
[2019-04-29] MEDS: AMIODARONE 300 MG in DEXTROSE 5% IN WATER 250 ML IV SCH ×6 (01:46→22:00)
[2019-04-29 02:33] LABS: Glucose,Whole Blood 154 mg/dL (75-99)
[2019-04-29] MEDS: ACETAMINOPHEN TAB 325 MG TAB PO PRN (05:29)
[2019-04-29] MEDS: NOREPINEPHRINE 4 MG in SODIUM CHLORIDE 0.9% 250 ML IV SCH ×4 (05:47→21:41)
[2019-04-29] MEDS: SODIUM CHLORIDE 0.9% 1,000 ML IV SCH ×5 (05:48→22:00)
[2019-04-29 05:52] LABS: Anisocytosis Slight; HCT 47.9 % (34.0-46.0); HGB 14.6 gm/dL (11.4-16.0); Hypochromasia Marked; MCH 29.3 pg (25.0-35.0); MCHC 30.5 g/dL (31.0-37.0); MCV 96.1 fL (80.0-100.0); Mean Platelet Volume 7.9; Platelet Count 365 k/uL (150-450); RBC 4.98 m/uL (3.80-5.40); WBC 48.5 k/uL (3.8-10.6)
[2019-04-29 06:08] LABS: Band Neutrophils % 2 %; Lymphocytes # (M) 1.94 k/uL (1.0-4.8); Monocytes # (M) 0.97 k/uL (0-1.0); Myelocytes # (M) 0.49 k/uL (0); Myelocytes % 1 %; Neutrophils % (M) 93 %; Nucleated Red Blood Cells 0 /100 WBC (0-0); Total Cells Counted 200; Toxic Vacuolation Present
[2019-04-29 06:18] LABS: African American GFR (CKD) 49 (>60 ml/min/1.73 sqM); Anion Gap 22 mmol/L; Blood Urea Nitrogen 26 mg/dL (7-17); Calcium 9.2 mg/dL (8.4-10.2); Carbon Dioxide 17 mmol/L (22-30); Chloride 100 mmol/L (98-107); Glucose 187 mg/dL (74-99); Potassium 4.5 mmol/L (3.5-5.1); Sodium 139 mmol/L (137-145)
[2019-04-29] MEDS ORDERED: AMIODARONE 300 MG in DEXTROSE 5% IN WATER 250 ML IV SCH ×2 (06:35)
--- NOTE | 2019-04-29 06:50 | XR ---
EXAMINATION TYPE: XR chest 1V DATE OF EXAM: 04/29/2019 HISTORY: SOB. REFERENCE: Previous study dated 04/28/2019. FINDINGS: There is a unipolar pacemaker place on the left. The heart is enlarged. There is bibasilar airspace disease. There are bilateral effusions. There are multiple old right-sided rib fractures. There is some improvement in the degree of pulmonary edema. IMPRESSION: IMPROVING CHANGES OF HEART FAILURE.
[2019-04-29 07:17] LABS: Glucose,Whole Blood 146 mg/dL (75-99)
[2019-04-29] MEDS: INSULIN ASPART (NovoLOG) 100 UNIT/ML VIAL SQ SCH ×4 (07:44→21:23)
[2019-04-29] MEDS: PANTOPRAZOLE 40 MG/10 ML VIAL IV SCH (08:35)
[2019-04-29] MEDS: APIXABAN 5 MG TAB PO SCH ×2 (10:19→21:23)
[2019-04-29] MEDS: ASPIRIN 81 MG PO SCH (10:19)
[2019-04-29] MEDS ORDERED: BISACODYL 10 MG SUPP RECTAL PRN (11:17)
[2019-04-29] MEDS ORDERED: guaiFENesin SYRUP 100MG/5ML 200 MG/10 ML CUP PO PRN (11:17)
[2019-04-29] MEDS ORDERED: NA PHOS,M-B/NA PHOS,DI-BA 133 ML ENEMA RECTAL PRN (11:17)
[2019-04-29] MEDS: SODIUM CHLORIDE 0.9% 50 ML with VASOPRESSIN 20 UNIT IVPB SCH ×2 (11:49)
[2019-04-29] MEDS: FLUCONAZOLE IN NACL,ISO-OSM 200 MG in SALINE 1 100ML.BAG IVPB SCH (11:51)
[2019-04-29 11:56] LABS: Glucose,Whole Blood 170 mg/dL (75-99)
--- NOTE | 2019-04-29 12:28 | P.HPIM ---
History of Present Illness 83-year-old female [facility] resident with fairly good memory as per the family although functionality is bit poor does have bilateral chronic diabetic foot ulcers follows up in known care found unresponsive at [facility] doesn't have a Saldivar catheter found to be septic with the A. fib with rapid ventricular rate. Patient is a highly elevated white blood cell count no fever or white blood cell count is 40,000. Possible source of infection is believed to be urinary tract infection with significant abnormal urine, her bilateral leg wounds are mostly stage III, it appeared to be infected. Wound cultures were obtained. Patient is awake today with answer questions. Patient has significantly low urine output patient is presently on IV fluids, norepinephrine drip. Initially was told past family wanted her 3 hospice at this time patient is not hospice and the family wanted us to continue the care. Blood cultures and urine cultures were obtained as well as chest x-ray showed a left pleural effusions and pulmonary edema yesterday and pulmonary edema is better today. Patient is presently on norepinephrine and vasopressin. Patient on meropenem and fluconazole was started by clock mechanic. Patient is very minimal output patient is receiving the and 25 mL of IV normal saline along with that patient received fluid boluses. Patient abdominal CAT scan which showed constipation and some of the changes as mentioned above. No obvious abscess on the CAT scan of the abdomen. Patient's serum creatinine is 1.3. Review of Systems REVIEW OF SYSTEMS: CONSTITUTIONAL: Retired lethargic HEENT: No recent visual problems or hearing problems. Denied any sore throat. CARDIOVASCULAR: No chest pain, orthopnea, PND, no palpitations, no syncope. PULMONARY: No shortness of breath, no cough, no hemoptysis. GASTROINTESTINAL: No diarrhea, no nausea, no vomiting, no abdominal pain. NEUROLOGICAL: No headaches, no weakness, no numbness. HEMATOLOGICAL: Denies any bleeding or petechiae. GENITOURINARY: Denies any burning micturition, frequency, or urgency. MUSCULOSKELETAL/RHEUMATOLOGICAL: Denies any joint pain, swelling, or any muscle pain. ENDOCRINE: Denies any polyuria or polydipsia. The rest of the 14-point review of systems is negative. Past Medical History Past Medical History: Atrial Fibrillation, Coronary Artery Disease (CAD), Cancer , Diabetes Mellitus, GERD/Reflux, Hearing Disorder / Deafness, Hyperlipidemia, Hypertension, Osteoarthritis (OA), Skin Disorder Additional Past Medical History / Comment(s): diverticultis, rt arm fx, cervical cancer, pancreatitis, right foot infection, gall stones and removal, FALL/fx coccyx 08-29-17, CONSTIPATION, PAD, RT FOOT (great toe) WOUND HAS BEEN GOING TO THE [facility] , PAST GALLSTONES,lt. foot wound, yeast in abdominal folds History of Any Multi-Drug Resistant Organisms: ESBL Date of last positivie culture/infection: 01/23/19 ESBL E.coli MDRO Source:: Urine Past Surgical History: AICD, Bowel Resection, Cholecystectomy, Heart Catheterization, Hysterectomy, Orthopedic Surgery Additional Past Surgical History / Comment(s): Internal defibulator 09-15-17, LT ROTATOR CUFF X2, BUNIONECTOMY JACQUELINE,, JACQUELINE BREAST LUMPECTOMIES-BOTH NEG,, X2 ERCP, RT HAND SX PINS PLACED-BUT SINCE REMOVED, CATARACTS. 12/01/17 picc line inserted- since removed Past Anesthesia/Blood Transfusion Reactions: No Reported Reaction Type of Cardiac Device: AICD Device Placement Date:: 09-15-17 Past Psychological History: No Psychological Hx Reported Additional Psychological History / Comment(s): PT LIVES IN [facility]. PT USES WHEEL CHAIR. Smoking Status: Former smoker Past Alcohol Use History: None Reported Additional Past Alcohol Use History / Comment(s): Smoked sporadically from 1964 till 1967 Past Drug Use History: None Reported - Past Family History Mother Family Medical History: No Reported History Additional Family Medical History / Comment(s): HEART DISEASE Father Family Medical History: Coronary Artery Disease (CAD), Diabetes Mellitus Medications and Allergies Home Medications Medication Instructions Recorded Confirmed Type Pentoxifylline 400 mg PO TID@0800,1200,1700 12/13/16 04/28/19 History Vit C/E/Zn/Coppr/Lutein/Zeaxan 1 cap PO DAILY@1700 11/10/17 04/28/19 History [Preservision Areds 2 Softgel] metFORMIN HCL 1,000 mg PO BID@0800,1700 11/10/17 04/28/19 History Ergocalciferol [Vitamin D2 50,000 unit PO WE 09/25/18 04/28/19 History (DRISDOL)] Magnesium Oxide [Mag-Ox] 400 mg PO BID@0800,1700 09/25/18 04/28/19 History Omeprazole 40 mg PO DAILY@0800 09/25/18 04/28/19 History Thiamine [Vitamin B-1] 100 mg PO DAILY@1700 09/25/18 04/28/19 History Tolterodine Tartrate [Detrol LA] 4 mg PO DAILY@0800 09/25/18 04/28/19 History Vitamin B Complex 1 cap PO DAILY@1700 09/25/18 04/28/19 History Diclofenac Sodium Gel [Voltaren 2 gm TOPICAL QID tube 10/08/18 04/28/19 Rx Gel] Collagenase [Santyl] 1 applic TOPICAL Q24H 10/13/18 04/28/19 History Ondansetron HCl [Zofran] 4 mg PO QID PRN 10/13/18 04/28/19 History Sertraline HCl [Zoloft] 25 mg PO DAILY 10/13/18 04/28/19 History Magnesium Hydroxide [Milk of 30 ml PO Q48H PRN 11/13/18 04/28/19 History Magnesia Concentrate] Na Phos,M-B/Na Phos,Di-Ba [Fleet 1 dose RECTAL DAILY PRN 11/13/18 04/28/19 History Adult] Simethicone 80 mg PO TID@0800,1200,1700 11/27/18 04/28/19 History Apixaban [Eliquis] 5 mg PO BID@0800,1700 04/23/19 04/28/19 History Aspirin 81 mg PO DAILY@1700 04/23/19 04/28/19 History Bisacodyl [Dulcolax] 10 mg RECTAL DAILY PRN 04/23/19 04/28/19 History Docusate [Colace] 100 mg PO BID@0800,1700 04/23/19 04/28/19 History Furosemide [Lasix] 20 mg PO BID@0600,1400 04/23/19 04/28/19 History Gabapentin [Neurontin] 200 mg PO TID@0600,1400,2100 04/23/19 04/28/19 History Liquacel (Amino Acids) 30 ml PO BID@0800,1700 04/23/19 04/28/19 History Lisinopril [Prinivil] 20 mg PO DAILY@0800 04/23/19 04/28/19 History Metoprolol Tartrate [Lopressor] 50 mg PO BID@0800,1700 04/23/19 04/28/19 History Potassium Chloride ER [K-Dur 10] 10 meq PO BID@0800,1700 04/23/19 04/28/19 History Talc-Zinc Oxide Powder 81-15% 1 applic TOPICAL BID@0800,1700 04/23/19 04/28/19 History Ursodiol 300 mg PO BID@0800,2100 04/23/19 04/28/19 History guaiFENesin [guaiFENesin Oral 200 mg PO Q4H PRN 04/23/19 04/28/19 History Solution] Acetaminophen Tab [Tylenol] 325 mg PO Q6HR PRN tab 04/25/19 04/28/19 Rx INSULIN ASPART (NovoLOG) [NovoLOG See Protocol SQ AC-TID #1 vial 04/25/19 04/28/19 Rx (formulary)] traMADol HCL [Ultram] 25 mg PO Q4HR PRN 2 Days #8 tab 04/25/19 04/28/19 Rx Midodrine HCl [ProAmantine] 2.5 mg PO BID 04/28/19 04/28/19 History Allergies Allergy/AdvReac Type Severity Reaction Status Date / Time levofloxacin [From Levaquin] Allergy Mild Rash/Hives Verified 04/28/19 17:28 morphine AdvReac Rapid Verified 04/28/19 17:28 Heart Rate Physical Exam Vitals: Vital Signs Temp Pulse Pulse Resp BP BP Pulse Ox 04/29/19 11:45 108 H 15 100/41 97 04/29/19 11:30 125 H 15 97/56 97 04/29/19 11:15 118 H 15 98/56 98 04/29/19 11:00 121 H 14 118/40 99 04/29/19 10:15 112 H 20 101/61 96 04/29/19 10:00 125 H 19 112/54 98 04/29/19 09:45 130 H 16 116/60 04/29/19 09:30 137 H 19 80/46 04/29/19 09:15 129 H 17 92/64 95 04/29/19 09:00 133 H 16 97/61 97 04/29/19 08:45 116 H 16 98/36 98 04/29/19 08:30 133 H 19 62/48 94 L 04/29/19 08:15 123 H 16 91/45 04/29/19 08:00 98 F 118 H 17 96/50 97 18 07:45 112 H 17 89/65 04/29/19 07:30 110 H 22 94/54 04/29/19 07:15 120 H 16 93/73 04/29/19 07:00 133 H 16 99/67 95 04/29/19 06:45 109 H 16 95/51 04/29/19 06:30 109 H 16 82/48 95 04/29/19 06:15 101 H 22 79/59 04/29/19 06:00 92 24 80/33 95 04/29/19 05:45 101 H 20 103/73 04/29/19 05:30 121 H 21 97/84 04/29/19 05:15 105 H 11 L 98/64 04/29/19 05:00 106 H 20 110/82 94 L 04/29/19 04:45 101 H 17 90/56 04/29/19 04:30 108 H 18 93/65 04/29/19 04:15 101 H 15 115/50 100 04/29/19 04:00 97.3 F L 96 94 17 103/70 100 04/29/19 03:45 89 15 90/47 95 18 03:30 112 H 15 90/52 90 L 04/29/19 03:15 94 14 86/46 90 L 04/29/19 03:00 112 H 16 81/49 99 18 02:45 86 15 70/47 98 18 02:30 89 19 70/37 100 18 02:15 93 20 79/33 100 18 02:00 92 12 79/33 95 18/ 01:45 93 14 109/86 04/29/19 01:30 96 23 86/40 94 L 18 01:15 104 H 15 75/46 97 18 01:00 87 10 L 92/59 96 18 00:50 96 16 101/48 95 18 00:40 97 17 85/41 97 04/29/19 00:30 89 16 93/46 96 04/29/19 00:20 91 16 96/56 97 04/29/19 00:10 89 16 80/48 95 04/29/19 00:00 90 17 82/27 04/28/19 23:50 75 17 81/58 04/28/19 23:40 93 17 104/64 04/28/19 23:30 90 17 78/55 97 04/28/19 23:20 97.5 F L 87 21 63/36 97 04/28/19 23:15 94 12 04/28/19 22:41 45/35 04/28/19 22:29 98 04/28/19 22:15 97.4 F L 60/42 04/28/19 22:10 94 17 59/44 96 04/28/19 20:10 103 H 75/55 04/28/19 20:00 110 H 79/38 04/28/19 19:58 102 H 20 78/39 93 L 04/28/19 19:30 121 H 22 60/36 94 L 04/28/19 19:20 99 41/25 04/28/19 19:00 108 H 26 H 67/56 04/28/19 18:50 120 H 29 H 83/53 04/28/19 18:40 105 H 26 H 58/32 04/28/19 18:30 120 H 27 H 68/29 04/28/19 18:29 112 H 20 68/42 92 L 04/28/19 18:10 93/66 04/28/19 18:00 124 H 29 H 115/89 04/28/19 17:50 124 H 31 H 68/27 96 04/28/19 17:40 128 H 31 H 107/69 94 L 04/28/19 17:30 131 H 30 H 110/59 95 04/28/19 17:20 151 H 36 H 56/43 94 L 04/28/19 17:10 118 H 30 H 57/31 93 L 04/28/19 17:00 128 H 39 H 115/102 67 L 04/28/19 16:32 97.6 F 135 H 22 48/20 90 L Intake and Output 04/28/19 04/29/19 04/29/19 22:59 06:59 14:59 Intake Total 1812.832 0974.693 Output Total 63 19 Balance 7813.154 8128.693 Intake: IV 900 500 Meropenem 1 gm In Sodium 100 Chloride 0.9% 100 ml @ 200 mls/hr IVPB Q12H KEVEN Rx#:[id number] Sodium Chloride 0.9% 1, 800 500 000 ml @ 100 mls/hr IV . Q10H KEVEN Rx#:[id number] Intake, IV Titration 321.097 692.693 Amount Amiodarone 300 mg In 250 Dextrose 5% in Water 250 ml @ 0.5 MG/MIN 25 mls/hr IV .Q10H KEVEN Rx#: [id number] Norepinephrine 4 mg In 321.097 442.693 Sodium Chloride 0.9% 250 ml @ 0.05 MCG/KG/MIN 12. 789 mls/hr IV .[id number] KEVEN Rx#:[id number] Output: Urine 63 19 Other: Voiding Method Indwelling Catheter Weight 67.132 kg 67.132 kg PHYSICAL EXAMINATION: GENERAL: The patient is alert and oriented x3, not in any acute distress. Thin built HEENT: Pupils are round and equally reacting to light. EOMI. No scleral icterus. No conjunctival pallor. Normocephalic, atraumatic. No pharyngeal erythema. No thyromegaly. CARDIOVASCULAR: S1 and S2 present. No murmurs, rubs, or gallops. PULMONARY: Chest is clear to auscultation, no wheezing or crackles. ABDOMEN: Soft, nontender, nondistended, normoactive bowel sounds. No palpable organomegaly. MUSCULOSKELETAL: No joint swelling or deformity. EXTREMITIES: No cyanosis, clubbing, or pedal edema. NEUROLOGICAL: Gross neurological examination did not reveal any focal deficits. SKIN: Bilateral foot ulcers chronic diabetic has mentioned above Results CBC & Chem 7: 04/29/19 05:35 04/29/19 05:35 Labs: Abnormal Lab Results - Last 24 Hours (Table) 04/28/19 04/28/19 04/28/19 Range/Units 16:17 16:17 16:17 WBC 13.9 H (3.8-10.6) k/uL Hct 47.0 H (34.0-46.0) % MCHC 30.7 L (31.0-37.0) g/dL RDW (11.5-15.5) % Neutrophils # 9.8 H (1.3-7.7) k/uL Neutrophils # (Manual) (1.3-7.7) k/uL Myelocytes # (Manual) (0) k/uL PT (9.0-12.0) sec INR (<1.2) VBG pH (7.31-7.41) VBG pCO2 (37-51) mmHg Sodium 135 L (137-145) mmol/L Carbon Dioxide (22-30) mmol/L BUN 23 H (7-17) mg/dL Creatinine (0.52-1.04) mg/dL Glucose 166 H (74-99) mg/dL POC Glucose (mg/dL) (75-99) mg/dL Plasma Lactic Acid Lawrence 6.1 H* (0.7-2.0) mmol/L Alkaline Phosphatase 128 H (38-126) U/L Creatine Kinase 27 L (30-135) U/L Albumin 2.9 L (3.5-5.0) g/dL Urine Appearance (Clear) Urine Protein (Negative) Urine Blood (Negative) Ur Leukocyte Esterase (Negative) Urine RBC (0-5) /hpf Urine WBC (0-5) /hpf Urine WBC Clumps (None) /hpf Urine Mucus (None) /hpf Urine Yeast (Budding) (None) /hpf 04/28/19 04/28/19 04/28/19 Range/Units 16:17 16:17 16:38 WBC (3.8-10.6) k/uL Hct (34.0-46.0) % MCHC (31.0-37.0) g/dL RDW (11.5-15.5) % Neutrophils # (1.3-7.7) k/uL Neutrophils # (Manual) (1.3-7.7) k/uL Myelocytes # (Manual) (0) k/uL PT 12.6 H (9.0-12.0) sec INR 1.2 H (<1.2) VBG pH 7.28 L (7.31-7.41) VBG pCO2 52 H (37-51) mmHg Sodium (137-145) mmol/L Carbon Dioxide (22-30) mmol/L BUN (7-17) mg/dL Creatinine (0.52-1.04) mg/dL Glucose (74-99) mg/dL POC Glucose (mg/dL) 146 H (75-99) mg/dL Plasma Lactic Acid Lawrence (0.7-2.0) mmol/L Alkaline Phosphatase (38-126) U/L Creatine Kinase (30-135) U/L Albumin (3.5-5.0) g/dL Urine Appearance (Clear) Urine Protein (Negative) Urine Blood (Negative) Ur Leukocyte Esterase (Negative) Urine RBC (0-5) /hpf Urine WBC (0-5) /hpf Urine WBC Clumps (None) /hpf Urine Mucus (None) /hpf Urine Yeast (Budding) (None) /hpf 04/28/19 04/28/19 04/28/19 Range/Units 20:40 22:14 23:20 WBC (3.8-10.6) k/uL Hct (34.0-46.0) % MCHC (31.0-37.0) g/dL RDW (11.5-15.5) % Neutrophils # (1.3-7.7) k/uL Neutrophils # (Manual) (1.3-7.7) k/uL Myelocytes # (Manual) (0) k/uL PT (9.0-12.0) sec INR (<1.2) VBG pH (7.31-7.41) VBG pCO2 (37-51) mmHg Sodium (137-145) mmol/L Carbon Dioxide (22-30) mmol/L BUN (7-17) mg/dL Creatinine (0.52-1.04) mg/dL Glucose (74-99) mg/dL POC Glucose (mg/dL) 192 H (75-99) mg/dL Plasma Lactic Acid Lawrence 7.3 H* (0.7-2.0) mmol/L Alkaline Phosphatase (38-126) U/L Creatine Kinase (30-135) U/L Albumin (3.5-5.0) g/dL Urine Appearance Turbid H (Clear) Urine Protein 1+ H (Negative) Urine Blood Moderate H (Negative) Ur Leukocyte Esterase Large H (Negative) Urine RBC 22 H (0-5) /hpf Urine WBC >182 H (0-5) /hpf Urine WBC Clumps Many H (None) /hpf Urine Mucus Moderate H (None) /hpf Urine Yeast (Budding) Many H (None) /hpf 04/29/19 04/29/19 04/29/19 Range/Units 00:51 02:28 05:35 WBC 48.5 H (3.8-10.6) k/uL Hct 47.9 H (34.0-46.0) % MCHC 30.5 L (31.0-37.0) g/dL RDW 16.0 H (11.5-15.5) % Neutrophils # (1.3-7.7) k/uL Neutrophils # (Manual) 46.00 H (1.3-7.7) k/uL Myelocytes # (Manual) 0.49 H (0) k/uL PT (9.0-12.0) sec INR (<1.2) VBG pH (7.31-7.41) VBG pCO2 (37-51) mmHg Sodium (137-145) mmol/L Carbon Dioxide (22-30) mmol/L BUN (7-17) mg/dL Creatinine (0.52-1.04) mg/dL Glucose (74-99) mg/dL POC Glucose (mg/dL) 154 H (75-99) mg/dL Plasma Lactic Acid Lawrence 9.3 H* (0.7-2.0) mmol/L Alkaline Phosphatase (38-126) U/L Creatine Kinase (30-135) U/L Albumin (3.5-5.0) g/dL Urine Appearance (Clear) Urine Protein (Negative) Urine Blood (Negative) Ur Leukocyte Esterase (Negative) Urine RBC (0-5) /hpf Urine WBC (0-5) /hpf Urine WBC Clumps (None) /hpf Urine Mucus (None) /hpf Urine Yeast (Budding) (None) /hpf 04/29/19 04/29/19 04/29/19 Range/Units 05:35 05:35 07:03 WBC (3.8-10.6) k/uL Hct (34.0-46.0) % MCHC (31.0-37.0) g/dL RDW (11.5-15.5) % Neutrophils # (1.3-7.7) k/uL Neutrophils # (Manual) (1.3-7.7) k/uL Myelocytes # (Manual) (0) k/uL PT (9.0-12.0) sec INR (<1.2) VBG pH (7.31-7.41) VBG pCO2 (37-51) mmHg Sodium (137-145) mmol/L Carbon Dioxide 17 L (22-30) mmol/L BUN 26 H (7-17) mg/dL Creatinine 1.19 H (0.52-1.04) mg/dL Glucose 187 H (74-99) mg/dL POC Glucose (mg/dL) 146 H (75-99) mg/dL Plasma Lactic Acid Lawrence 12.6 H* (0.7-2.0) mmol/L Alkaline Phosphatase (38-126) U/L Creatine Kinase (30-135) U/L Albumin (3.5-5.0) g/dL Urine Appearance (Clear) Urine Protein (Negative) Urine Blood (Negative) Ur Leukocyte Esterase (Negative) Urine RBC (0-5) /hpf Urine WBC (0-5) /hpf Urine WBC Clumps (None) /hpf Urine Mucus (None) /hpf Urine Yeast (Budding) (None) /hpf 04/29/19 Range/Units 11:29 WBC (3.8-10.6) k/uL Hct (34.0-46.0) % MCHC (31.0-37.0) g/dL RDW (11.5-15.5) % Neutrophils # (1.3-7.7) k/uL Neutrophils # (Manual) (1.3-7.7) k/uL Myelocytes # (Manual) (0) k/uL PT (9.0-12.0) sec INR (<1.2) VBG pH (7.31-7.41) VBG pCO2 (37-51) mmHg Sodium (137-145) mmol/L Carbon Dioxide (22-30) mmol/L BUN (7-17) mg/dL Creatinine (0.52-1.04) mg/dL Glucose (74-99) mg/dL POC Glucose (mg/dL) 170 H (75-99) mg/dL Plasma Lactic Acid Lawrence (0.7-2.0) mmol/L Alkaline Phosphatase (38-126) U/L Creatine Kinase (30-135) U/L Albumin (3.5-5.0) g/dL Urine Appearance (Clear) Urine Protein (Negative) Urine Blood (Negative) Ur Leukocyte Esterase (Negative) Urine RBC (0-5) /hpf Urine WBC (0-5) /hpf Urine WBC Clumps (None) /hpf Urine Mucus (None) /hpf Urine Yeast (Budding) (None) /hpf Microbiology - Last 24 Hours (Table) 04/28/19 22:14 Urine Culture - Preliminary Urine,Catheterized Assessment and Plan Plan: -Septic shock: Possible source of infection being urinary tract infection, continue with pressor support and wean off as tolerated can he with IV fluids as mentioned above can you the above-mentioned antibiotics at his meropenem on flucanazole. Infectious disease will evaluate the patient. -Atrial fibrillation with rapid ventricular rate patient is presently on amiodarone metoprolol is being held because of septic shock and the patient is requiring 2 pressors at this time. Patient is is again Eliquis which will be continued. Atrial fibrillation was postdated by sepsis -Toxic encephalopathy and unresponsiveness secondary to sepsis and septic shock. -Coronary artery disease 10-type diabetes mellitus off on metformin and continue with sliding scale insulin. -Gastric reflux disease -Hyperlipidemia 7 hypertension, patient is presently hypotensive for above mentioned chronic medical problems patient will be resumed on appropriate home medications -Patient will need GI prophylaxis because of sepsis
--- NOTE | 2019-04-29 12:30 | P.CNPUL ---
History of Present Illness Consult date: 04/29/19 Chief complaint: Diminished level of consciousness History of present illness: This is an 83-year-old female patient with multiple medical problems and comorbidities was [facility] because of altered mentation. The patient developed progressive worsening in her level of consciousness and [facility] facility. The patient was transferred to the hospital upon the request of the family. The patient apparently had some nausea and emesis prior to her coming to the hospital. Despite her altered mentation and diminished level of consciousness, she continued to move all 4 extremities. In the ED, the patient was found to be hypotensive with a systolic blood pressure in the mid 40s. The patient was found to be in atrial fibrillation with rapid ventricular response and the patient is known to have long-term atrial fibrillation and the patient has been on long-term and to coagulation with Eliquis. Noted the patient has co ngestion heart failure and the patient has an AICD in place. The patient has also severe peripheral vascular disease and the patient has diabetic foot ulcers lower extremities bilaterally at the level of the first metatarsal joint medially and this is a stage IV ulcer with draining material and previous cultures have indicated growth with pseudomonas aeruginosa, Enterobacter and stenotrophomonas. Furthermore, the patient has had previous UTIs and on 01/23/2019 urine culture was positive for pseudomonas aeruginosa and E. coli. Note that the pseudomonas was an ESBL producing organism. During this current admission, the patient got transferred to the intensive care unit. Initially there was the idea of making her hospice. Later on the family changes their mind and he wanted resuscitation. Based on this, the patient was given IV fluids and immediately 2 L was infused. She was started on pressors. Urine was obtained after a Saldivar catheter insertion and the urine was quite cloudy and dirty and purulent. The UA was consistent with infection and it included yeast. Based on this, a combination of meropenem and Diflucan was started. This morning, the patient is still in a shock state. Lactic acid is gradually climbed up from a baseline of 6.1 up to 12.6. The patient has become progressively more hypotensive. The patient become pressor dependent and norepinephrine infusion is running at 30 mcg/m. The patient also has nearly absent urine output at this point in time. Extremities are extremely cold and clammy. In fact no palpable pulses in the feet bilaterally. Posterior tibialis pulses can be obtained only by Doppler signal. No dorsalis pedis with Doppler significant and the legs bilaterally. The white cell count on today's evaluation up to 47. Despite all this, she is able to answer some simple questions. Atelectatic discussion with the daughter the bedside. We have decided to more resuscitation. Note that the chest x-ray in the emergency showed some CHF findings. CAT scan of the abdomen and pelvis showed trace fluid in the lung bases along with some compressive atelectasis in the lung bases. No other abnormalities were noted. She remains in atrial fibrillation. Amiodarone is still running at a maintenance 0.5 mg per minute to control heart rate. Review of Systems Constitutional: Reports chronic pain, Reports fatigue, Reports lethargy, Reports poor appetite, Reports sweats, Reports weight loss Eyes: bilateral decreased vision, denies blurred vision, denies bulging eye Ears: bilateral: decreased hearing, deny: ear discharge, earache, tinnitus Ears, nose, mouth and throat: Denies headache, Denies sore throat Breasts: absent: as per HPI, change in shape, gynecomastia, masses, nipple discharge, pain, skin changes, swelling Cardiovascular: Reports decreased exercise tolerance (In fact the patient is nonambulatory and she is a [facility].), Reports irregular heart beat, Reports leg edema, Reports paroxysmal nocturnal dyspnea, Reports rapid heart beat, Reports shortness of breath Respiratory: Reports dyspnea Gastrointestinal: Reports nausea, Reports vomiting Genitourinary: Reports as per HPI (Frequent urinary tract infections), Reports stress incontinence, Reports urge incontinence, Reports urinary frequency Menstruation: Reports as per HPI Musculoskeletal: Reports as per HPI (Wounds of lower extremity), Reports muscle weakness Musculoskeletal: absent: ankle pain, ankle stiffness, ankle swelling Integumentary: Reports wounds (Stage IV in the feet bilaterally) Neurological: Reports ataxia, Reports balance difficulties, Reports confusion, Reports gait dysfunction, Reports hearing difficulties, Reports lack of coordination, Reports numbness, Reports weakness, Reports visual changes Psychiatric: Reports as per HPI, Reports confusion Endocrine: Reports as per HPI Hematologic/Lymphatic: Reports as per HPI Allergic/Immunologic: Reports as per HPI Past Medical History Past Medical History: Atrial Fibrillation, Coronary Artery Disease (CAD), Cancer, Diabetes Mellitus, GERD/Reflux, Hearing Disorder / Deafness, Hyperlipidemia, Hypertension, Osteoarthritis (OA), Skin Disorder Additional Past Medical History / Comment(s): Coronary artery disease, congestion heart failure with an ejection fraction of 35-40%, history of AICD placement, history of chronic atrial fibrillation, diabetes mellitus, diabetic ulcers in the feet bilaterally, chronic infected diabetic wounds, recurrent UTI, hypertension, impaired hearing, hyperlipidemia, acid reflux, history of cervical cancer, history of diverticulosis/diverticulitis, history of right arm fracture, history of chronic pancreatitis, history of gallstones, severe peripheral vascular disease, history of cutaneous fungal infection/Kate, [facility] resident and the patient resides at [facility]. History of Any Multi-Drug Resistant Organisms: ESBL Date of last positivie culture/infection: 01/23/19 ESBL E.coli MDRO Source:: Urine Past Surgical History: AICD, Bowel Resection, Cholecystectomy, Heart Catheterization, Hysterectomy, Orthopedic Surgery Additional Past Surgical History / Comment(s): AICD defibulator 09-15-17, LT ROTATOR CUFF X2, BUNIONECTOMY JACQUELINE,, JACQUELINE BREAST LUMPECTOMIES-BOTH NEG,, X2 ERCP, RT HAND SX PINS PLACED-BUT SINCE REMOVED, CATARACTS. 12/01/17 picc line inserted- since removed Past Anesthesia/Blood Transfusion Reactions: No Reported Reaction Type of Cardiac Device: AICD Device Placement Date:: 09-15-17 Past Psychological History: No Psychological Hx Reported Additional Psychological History / Comment(s): PT LIVES IN [facility]. PT USES WHEEL [employer]. Smoking Status: Former smoker Past Alcohol Use History: None Reported Additional Past Alcohol Use History / Comment(s): Smoked sporadically from 1964 till 1967 Past Drug Use History: None Reported - Past Family History Mother Family Medical History: No Reported History Additional Family Medical History / Comment(s): HEART DISEASE runs in the patient's family. Daughter is healthy at this point in time. has been . Father Family Medical History: Coronary Artery Disease (CAD), Diabetes Mellitus Medications and Allergies Home Medications Medication Instructions Recorded Confirmed Type Pentoxifylline 400 mg PO TID@0800,1200,1700 12/13/16 04/28/19 History Vit C/E/Zn/Coppr/Lutein/Zeaxan 1 cap PO DAILY@1700 11/10/17 04/28/19 History [Preservision Areds 2 Softgel] metFORMIN HCL 1,000 mg PO BID@0800,1700 11/10/17 04/28/19 History Ergocalciferol [Vitamin D2 50,000 unit PO WE 09/25/18 04/28/19 History (DRISDOL)] Magnesium Oxide [Mag-Ox] 400 mg PO BID@0800,1700 09/25/18 04/28/19 History Omeprazole 40 mg PO DAILY@0800 09/25/18 04/28/19 History Thiamine [Vitamin B-1] 100 mg PO DAILY@1700 09/25/18 04/28/19 History Tolterodine Tartrate [Detrol LA] 4 mg PO DAILY@0800 09/25/18 04/28/19 History Vitamin B Complex 1 cap PO DAILY@1700 09/25/18 04/28/19 History Diclofenac Sodium Gel [Voltaren 2 gm TOPICAL QID tube 10/08/18 04/28/19 Rx Gel] Collagenase [Santyl] 1 applic TOPICAL Q24H 10/13/18 04/28/19 History Ondansetron HCl [Zofran] 4 mg PO QID PRN 10/13/18 04/28/19 History Sertraline HCl [Zoloft] 25 mg PO DAILY 10/13/18 04/28/19 History Magnesium Hydroxide [Milk of 30 ml PO Q48H PRN 11/13/18 04/28/19 History Magnesia Concentrate] Na Phos,M-B/Na Phos,Di-Ba [Fleet 1 dose RECTAL DAILY PRN 11/13/18 04/28/19 History Adult] Simethicone 80 mg PO TID@0800,1200,1700 11/27/18 04/28/19 History Apixaban [Eliquis] 5 mg PO BID@0800,1700 04/23/19 04/28/19 History Aspirin 81 mg PO DAILY@1700 04/23/19 04/28/19 History Bisacodyl [Dulcolax] 10 mg RECTAL DAILY PRN 04/23/19 04/28/19 History Docusate [Colace] 100 mg PO BID@0800,1700 04/23/19 04/28/19 History Furosemide [Lasix] 20 mg PO BID@0600,1400 04/23/19 04/28/19 History Gabapentin [Neurontin] 200 mg PO TID@0600,1400,2100 04/23/19 04/28/19 History Liquacel (Amino Acids) 30 ml PO BID@0800,1700 04/23/19 04/28/19 History Lisinopril [Prinivil] 20 mg PO DAILY@0800 04/23/19 04/28/19 History Metoprolol Tartrate [Lopressor] 50 mg PO BID@0800,1700 04/23/19 04/28/19 History Potassium Chloride ER [K-Dur 10] 10 meq PO BID@0800,1700 04/23/19 04/28/19 History Talc-Zinc Oxide Powder 81-15% 1 applic TOPICAL BID@0800,1700 04/23/19 04/28/19 History Ursodiol 300 mg PO BID@0800,2100 04/23/19 04/28/19 History guaiFENesin [guaiFENesin Oral 200 mg PO Q4H PRN 04/23/19 04/28/19 History Solution] Acetaminophen Tab [Tylenol] 325 mg PO Q6HR PRN tab 04/25/19 04/28/19 Rx INSULIN ASPART (NovoLOG) [NovoLOG See Protocol SQ AC-TID #1 vial 04/25/19 04/28/19 Rx (formulary)] traMADol HCL [Ultram] 25 mg PO Q4HR PRN 2 Days #8 tab 04/25/19 04/28/19 Rx Midodrine HCl [ProAmantine] 2.5 mg PO BID 04/28/19 04/28/19 History Allergies Allergy/AdvReac Type Severity Reaction Status Date / Time levofloxacin [From [facility]] Allergy Mild Rash/Hives Verified 04/28/19 17:28 morphine AdvReac Rapid Verified 04/28/19 17:28 Heart Rate Physical Exam Vitals: Vital Signs Temp Pulse Pulse Resp BP BP Pulse Ox 04/29/19 11:45 108 H 15 100/41 97 04/29/19 11:30 125 H 15 97/56 97 04/29/19 11:15 118 H 15 98/56 98 04/29/19 11:00 121 H 14 118/40 99 04/29/19 10:15 112 H 20 101/61 96 04/29/19 10:00 125 H 19 112/54 98 04/29/19 09:45 130 H 16 116/60 04/29/19 09:30 137 H 19 80/46 04/29/19 09:15 129 H 17 92/64 95 04/29/19 09:00 133 H 16 97/61 97 04/29/19 08:45 116 H 16 98/36 98 18 08:30 133 H 19 62/48 94 L 04/29/19 08:15 123 H 16 91/45 04/29/19 08:00 98 F 118 H 17 96/50 97 04/29/19 07:45 112 H 17 89/65 04/29/19 07:30 110 H 22 94/54 04/29/19 07:15 120 H 16 93/73 04/29/19 07:00 133 H 16 99/67 95 04/29/19 06:45 109 H 16 95/51 04/29/19 06:30 109 H 16 82/48 95 04/29/19 06:15 101 H 22 79/59 04/29/19 06:00 92 24 80/33 95 04/29/19 05:45 101 H 20 103/73 04/29/19 05:30 121 H 21 97/84 04/29/19 05:15 105 H 11 L 98/64 04/29/19 05:00 106 H 20 110/82 94 L 04/29/19 04:45 101 H 17 90/56 04/29/19 04:30 108 H 18 93/65 04/29/19 04:15 101 H 15 115/50 100 04/29/19 04:00 97.3 F L 96 94 17 103/70 100 04/29/19 03:45 89 15 90/47 95 04/29/19 03:30 112 H 15 90/52 90 L 04/29/19 03:15 94 14 86/46 90 L 04/29/19 03:00 112 H 16 81/49 99 18 02:45 86 15 70/47 98 18 02:30 89 19 70/37 100 18 02:15 93 20 79/33 100 18 02:00 92 12 79/33 95 18 01:45 93 14 109/86 04/29/19 01:30 96 23 86/40 94 L 04/29/19 01:15 104 H 15 75/46 97 04/29/19 01:00 87 10 L 92/59 96 04/29/19 00:50 96 16 101/48 95 04/29/19 00:40 97 17 85/41 97 04/29/19 00:30 89 16 93/46 96 04/29/19 00:20 91 16 96/56 97 04/29/19 00:10 89 16 80/48 95 04/29/19 00:00 90 17 82/27 04/28/19 23:50 75 17 81/58 04/28/19 23:40 93 17 104/64 04/28/19 23:30 90 17 78/55 97 04/28/19 23:20 97.5 F L 87 21 63/36 97 04/28/19 23:15 94 12 04/28/19 22:41 45/35 04/28/19 22:29 98 04/28/19 22:15 97.4 F L 60/42 04/28/19 22:10 94 17 59/44 96 04/28/19 20:10 103 H 75/55 04/28/19 20:00 110 H 79/38 04/28/19 19:58 102 H 20 78/39 93 L 04/28/19 19:30 121 H 22 60/36 94 L 04/28/19 19:20 99 41/25 04/28/19 19:00 108 H 26 H 67/56 04/28/19 18:50 120 H 29 H 83/53 04/28/19 18:40 105 H 26 H 58/32 04/28/19 18:30 120 H 27 H 68/29 04/28/19 18:29 112 H 20 68/42 92 L 04/28/19 18:10 93/66 04/28/19 18:00 124 H 29 H 115/89 04/28/19 17:50 124 H 31 H 68/27 96 04/28/19 17:40 128 H 31 H 107/69 94 L 04/28/19 17:30 131 H 30 H 110/59 95 04/28/19 17:20 151 H 36 H 56/43 94 L 04/28/19 17:10 118 H 30 H 57/31 93 L 04/28/19 17:00 128 H 39 H 115/102 67 L 04/28/19 16:32 97.6 F 135 H 22 48/20 90 L Intake and Output 04/28/19 04/29/19 04/29/19 22:59 06:59 14:59 Intake Total 1008.185 3292.693 Output Total 63 19 Balance 5548.423 5692.693 Intake: IV 900 500 Meropenem 1 gm In Sodium 100 Chloride 0.9% 100 ml @ 200 mls/hr IVPB Q12H KEVEN Rx#:[id number] Sodium Chloride 0.9% 1, 800 500 000 ml @ 100 mls/hr IV . Q10H KEVEN Rx#:[id number] Intake, IV Titration 321.097 692.693 Amount Amiodarone 300 mg In 250 Dextrose 5% in Water 250 ml @ 0.5 MG/MIN 25 mls/hr IV .Q10H KEVEN Rx#: [id number] Norepinephrine 4 mg In 321.097 442.693 Sodium Chloride 0.9% 250 ml @ 0.05 MCG/KG/MIN 12. 789 mls/hr IV .[id number] KEVEN Rx#:[id number] Output: Urine 63 19 Other: Voiding Method Indwelling Catheter Weight 67.132 kg Lethargic, comfortable not in significant respiratory distress. The patient is resting comfortably in bed. She seems to be in a shock state. Head exam was generally normal. There was no scleral icterus or corneal arcus. Mucous membranes were moist. Neck was supple and without jugular venous distension, thyromegaly, or carotid bruits. Carotids were easily palpable bilaterally. There was no adenopathy. Lungs sounds are diminished bilaterally along with some limited bibasilar crackles. Heart sounds are irregular S1-S2 consistent with atrial fibrillation with rapid ventricular response. She is still tachycardic. No significant murmurs appreciated on examination. Abdominal exam revealed normal bowel sounds. The abdomen was soft, non-tender, and without masses, organomegaly, or appreciable enlargement of the abdominal aorta. Extremities revealed no pulses in the feet bilaterally. Assessment dorsalis pedis and posterior tibialis by palpation yet the posterior tibialis are obtained by Doppler signal. The patient has wounds which are open and deep a stage IV in the metatarsal joint bilaterally mainly over the medial aspect of the foot and the wound is probably 3 x 4 cm in size with a based covered by some necrotic and purulent material. The arms and the hands are quite cold and cyanotic at this stage. Skin as mentioned above. The patient's cold and clammy. There is cyanosis. No digital clubbing at this point in time. The foot ulcers or discussed above. Neurologically she is lethargic and on and off confused. She opens her eyes and sometimes she seems to be appropriate and she was able to recognize her daughter at the bedside. She is moving all 4 extremities. She withdraws to painful stimulation. Motor function is extremely weak probably 3/5 symmetrically in all 4 extremities. Results - Laboratory Findings CBC and BMP: 04/29/19 05:35 04/29/19 05:35 PT/INR, D-dimer PT 12.6 sec (9.0-12.0) H 04/28/19 16:17 INR 1.2 (<1.2) H 04/28/19 16:17 Abnormal lab findings: Abnormal Labs 04/28/19 04/28/19 04/28/19 16:17 16:17 16:17 WBC 13.9 H Hct 47.0 H MCHC 30.7 L RDW Neutrophils # 9.8 H Neutrophils # (Manual) Myelocytes # (Manual) PT INR VBG pH VBG pCO2 Sodium 135 L Carbon Dioxide BUN 23 H Creatinine Glucose 166 H POC Glucose (mg/dL) Plasma Lactic Acid Lawrence 6.1 H* Alkaline Phosphatase 128 H Creatine Kinase 27 L Albumin 2.9 L Urine Appearance Urine Protein Urine Blood Ur Leukocyte Esterase Urine RBC Urine WBC Urine WBC Clumps Urine Mucus Urine Yeast (Budding) 04/28/19 04/28/19 04/28/19 16:17 16:17 16:38 WBC Hct MCHC RDW Neutrophils # Neutrophils # (Manual) Myelocytes # (Manual) PT 12.6 H INR 1.2 H VBG pH 7.28 L VBG pCO2 52 H Sodium Carbon Dioxide BUN Creatinine Glucose POC Glucose (mg/dL) 146 H Plasma Lactic Acid Lawrence Alkaline Phosphatase Creatine Kinase Albumin Urine Appearance Urine Protein Urine Blood Ur Leukocyte Esterase Urine RBC Urine WBC Urine WBC Clumps Urine Mucus Urine Yeast (Budding) 04/28/19 04/28/19 04/28/19 20:40 22:14 23:20 WBC Hct MCHC RDW Neutrophils # Neutrophils # (Manual) Myelocytes # (Manual) PT INR VBG pH VBG pCO2 Sodium Carbon Dioxide BUN Creatinine Glucose POC Glucose (mg/dL) 192 H Plasma Lactic Acid Lawrence 7.3 H* Alkaline Phosphatase Creatine Kinase Albumin Urine Appearance Turbid H Urine Protein 1+ H Urine Blood Moderate H Ur Leukocyte Esterase Large H Urine RBC 22 H Urine WBC >182 H Urine WBC Clumps Many H Urine Mucus Moderate H Urine Yeast (Budding) Many H 04/29/19 04/29/19 04/29/19 00:51 02:28 05:35 WBC 48.5 H Hct 47.9 H MCHC 30.5 L RDW 16.0 H Neutrophils # Neutrophils # (Manual) 46.00 H Myelocytes # (Manual) 0.49 H PT INR VBG pH VBG pCO2 Sodium Carbon Dioxide BUN Creatinine Glucose POC Glucose (mg/dL) 154 H Plasma Lactic Acid Lawrence 9.3 H* Alkaline Phosphatase Creatine Kinase Albumin Urine Appearance Urine Protein Urine Blood Ur Leukocyte Esterase Urine RBC Urine WBC Urine WBC Clumps Urine Mucus Urine Yeast (Budding) 04/29/19 04/29/19 04/29/19 05:35 05:35 07:03 WBC Hct MCHC RDW Neutrophils # Neutrophils # (Manual) Myelocytes # (Manual) PT INR VBG pH VBG pCO2 Sodium Carbon Dioxide 17 L BUN 26 H Creatinine 1.19 H Glucose 187 H POC Glucose (mg/dL) 146 H Plasma Lactic Acid Lawrence 12.6 H* Alkaline Phosphatase Creatine Kinase Albumin Urine Appearance Urine Protein Urine Blood Ur Leukocyte Esterase Urine RBC Urine WBC Urine WBC Clumps Urine Mucus Urine Yeast (Budding) 04/29/19 11:29 WBC Hct MCHC RDW Neutrophils # Neutrophils # (Manual) Myelocytes # (Manual) PT INR VBG pH VBG pCO2 Sodium Carbon Dioxide BUN Creatinine Glucose POC Glucose (mg/dL) 170 H Plasma Lactic Acid Lawrence Alkaline Phosphatase Creatine Kinase Albumin Urine Appearance Urine Protein Urine Blood Ur Leukocyte Esterase Urine RBC Urine WBC Urine WBC Clumps Urine Mucus Urine Yeast (Budding) - Diagnostic Findings Chest x-ray: image reviewed Assessment and Plan Plan: 1 septic shock likely secondary to underlying UTI. Consider gram-negative UTI as the patient has had previous ESBL producing pseudomonas aeruginosa and E. coli. Candidal infection with secondary septicemia cannot be completely excluded. Another source of sepsis in her stage IV open wounds in lower extremities/feet bilaterally 2 severe hypotension secondary to septic shock currently pressor dependent 3 acute lactic acidosis secondary to above with progressive increase in lactic acid levels 4 acute kidney injury Is on the rise and the patient is oliguric/anuric 5 acute leukocytosis secondary to above 6 coronary artery disease 7 CHF with ejection fraction of 35% at baseline and the patient has an AICD in place 8 A. 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 DNR/DNI CODE STATUS. Plan Discussed the case with a daughter the bedside. This carries a very high mortality. Unfortunately the prognosis poor specially that she has a very baseline poor performance and functional status and she has multiple comorbidities as mentioned above. As for her septic shock, she is showing signs of multisystem organ failure. For now we'll given an additional 2 L of IV fluids. We'll continue the Merrem and Diflucan. We'll continue pressors. Add vasopressin. Watch for urine output. Watch for day progression lactic acid level. She has a DNR/DNI CODE STATUS. Local wound care. Blood sugar control. Resume aspirin. Resume Eliquis. May be a candidate for hospice care or comfort care measures at a later stage. We'll continue to follow.
[2019-04-29] MEDS ORDERED: NOREPINEPHRINE IV SCH (13:00)
[2019-04-29] MEDS ORDERED: SODIUM CHLORIDE 0.9% IV SCH (13:00)
[2019-04-29] MEDS: SIMETHICONE 80 MG CHEWABLE PO SCH ×2 (13:50→18:36)
[2019-04-29] MEDS: PENTOXIFYLLINE 400 MG TABLET.ER PO SCH ×2 (13:50→17:58)
[2019-04-29] MEDS ORDERED: Magnesium Replacement Protocol 1 EACH MISC MISCELLANE PRN (14:42)
[2019-04-29] MEDS: MAGNESIUM SULFATE-D5W PMX 1 GM in DEXTROSE/WATER 1 100ML.BAG IVPB SCH ×2 (16:17→19:08)
[2019-04-29] MEDS ORDERED: ASPIRIN 81 MG PO SCH (17:00)
[2019-04-29 17:04] LABS: Glucose,Whole Blood 203 mg/dL (75-99)
[2019-04-29] MEDS: DOCUSATE 100 MG CAP PO SCH (17:41)
[2019-04-29] MEDS: THIAMINE 100 MG TAB PO SCH (17:42)
[2019-04-29] MEDS: ONDANSETRON 4 MG/2 ML VIAL IVP PRN (18:39)
[2019-04-29] MEDS ORDERED: COLLAGENASE 250 UNIT/GM OINTMENT 30 GM TUBE TOPICAL SCH (21:00)
[2019-04-29 21:10] LABS: Glucose,Whole Blood 264 mg/dL (75-99)
[2019-04-29] MEDS: URSODIOL 300 MG CAP PO SCH (21:23)
[2019-04-30] MEDS: MEROPENEM 1 GM in SODIUM CHLORIDE 0.9% 100 ML IVPB SCH ×3 (01:02→23:07)
[2019-04-30] MEDS: SODIUM CHLORIDE 0.9% 50 ML with VASOPRESSIN 20 UNIT IVPB SCH ×4 (01:02→03:03)
[2019-04-30 01:09] LABS: Glucose,Whole Blood 224 mg/dL (75-99)
[2019-04-30] MEDS: INSULIN ASPART (NovoLOG) 100 UNIT/ML VIAL SQ SCH ×5 (01:09→20:20)
[2019-04-30] MEDS: NOREPINEPHRINE 4 MG in SODIUM CHLORIDE 0.9% 250 ML IV SCH ×4 (05:52→17:09)
[2019-04-30 06:51] LABS: Glucose,Whole Blood 116 mg/dL (75-99)
[2019-04-30 07:01] LABS: Basophils # (A) 0.1 k/uL (0-0.2); Basophils % (A) 0 %; Eosinophils # (A) 0.2 k/uL (0-0.7); Eosinophils % (A) 1 %; HCT 33.3 % (34.0-46.0); Hypochromasia Slight; Lymphocytes # (A) 0.6 k/uL (1.0-4.8); Lymphocytes % (A) 3 %; MCH 29.7 pg (25.0-35.0); MCHC 32.6 g/dL (31.0-37.0); Mean Platelet Volume 7.7; Monocytes # (A) 0.7 k/uL (0-1.0); Monocytes % (A) 4 %; Neutrophils # (A) 18.6 k/uL (1.3-7.7); Neutrophils % (A) 92 %; Platelet Count 286 k/uL (150-450); RBC 3.65 m/uL (3.80-5.40); RDW 15.9 % (11.5-15.5); WBC 20.4 k/uL (3.8-10.6)
[2019-04-30 07:07] LABS: HGB 10.8 gm/dL (11.4-16.0)
[2019-04-30 07:08] LABS: MCV 91.1 fL (80.0-100.0)
[2019-04-30] MEDS: AMIODARONE 300 MG in DEXTROSE 5% IN WATER 250 ML IV SCH ×4 (08:28→19:10)
[2019-04-30] MEDS: DOCUSATE 100 MG CAP PO SCH ×2 (08:29→15:42)
[2019-04-30] MEDS: PENTOXIFYLLINE 400 MG TABLET.ER PO SCH ×3 (08:55→17:15)
[2019-04-30] MEDS: SERTRALINE 25 MG TAB PO SCH (08:55)
[2019-04-30] MEDS: FLUCONAZOLE IN NACL,ISO-OSM 200 MG in SALINE 1 100ML.BAG IVPB SCH (08:55)
[2019-04-30] MEDS: SIMETHICONE 80 MG CHEWABLE PO SCH ×3 (08:55→17:15)
[2019-04-30] MEDS: OXYBUTYNIN 10 MG TAB.ER.24 PO SCH (08:55)
[2019-04-30] MEDS: ASPIRIN 81 MG PO SCH (08:55)
[2019-04-30] MEDS: APIXABAN 5 MG TAB PO SCH ×2 (08:55→20:20)
[2019-04-30] MEDS: PANTOPRAZOLE 40 MG/10 ML VIAL IV SCH (08:55)
[2019-04-30] MEDS: URSODIOL 300 MG CAP PO SCH ×2 (08:55→20:21)
[2019-04-30 10:01] LABS: Calcium 7.7 mg/dL (8.4-10.2); Magnesium 1.9 mg/dL (1.6-2.3); Potassium 4.1 mmol/L (3.5-5.1)
[2019-04-30 11:26] LABS: Glucose,Whole Blood 271 mg/dL (75-99)
[2019-04-30] MEDS ORDERED: MEROPENEM 1 GM in SODIUM CHLORIDE 0.9% 100 ML IVPB SCH (12:00)
[2019-04-30] MEDS: ACETAMINOPHEN TAB 325 MG TAB PO PRN ×2 (12:30→20:20)
[2019-04-30] MEDS: SODIUM CHLORIDE 0.9% 1,000 ML IV SCH ×2 (12:31→20:21)
--- NOTE | 2019-04-30 12:57 | P.PN ---
Subjective 82-year-old pleasant female was admitted with septic shock most probably because of urinary tract infection patient did have symptoms of UTI before admission was actually found unresponsive doing much better with lactic acid has come down to 2.4 patient vasopressin will be discontinued patient will be continued on nor epinephrine. Urine cultures were positive for Kate urine output improved patient creatinine Around 2.9 because of which I'm increasing her dose of meropenem infectious disease was consulted patient has bilateral leg wounds will need local wound care and probably not the source of infection. Constitutional: Denied any fatigue denied any fever. Cardio vascular: denied any chest pain, palpitations Gastrointestinal denied any nausea vomiting Pulmonary: Denied any shortness of breath cough Neurologic denied any new focal deficits All inpatient medications were reviewed and appropriate changes in these medications as dictated in the interval history and assessment and plan. Objective - Vital Signs Vital signs: Vital Signs Temp 98.4 F 04/30/19 12:00 Pulse 116 H 04/30/19 12:15 Resp 16 04/30/19 12:15 BP 110/60 04/30/19 12:15 Pulse Ox 91 L 04/30/19 12:15 Intake & Output 04/29/19 04/30/19 04/30/19 18:59 06:59 18:59 Intake Total 3892.906 2438.305 890.241 Output Total 419 1860 860 Balance 3473.906 578.305 30.241 Weight 67.132 kg 72.8 kg Intake: IV 3200 1675 500 Amiodarone 300 mg In 275 Dextrose 5% in Water 250 ml @ 0.5 MG/MIN 25 mls/hr IV .Q10H [facility] Rx#: [id number] Meropenem 1 gm In Sodium 100 200 Chloride 0.9% 100 ml @ 200 mls/hr IVPB Q12H [facility] Rx#:[id number] Sodium Chloride 0.9% 1, 3100 1200 500 000 ml @ 100 mls/hr IV . Q10H [facility] Rx#:[id number] Intake, IV Titration 692.906 703.305 390.241 Amount Amiodarone 300 mg In 50 Dextrose 5% in Water 250 ml @ 0.5 MG/MIN 25 mls/hr IV .Q10H [facility] Rx#: [id number] Amiodarone 300 mg In 250 Dextrose 5% in Water 250 ml @ 0.5 MG/MIN 25 mls/hr IV .Q10H [facility] Rx#: [id number] Amiodarone 300 mg In 250 Dextrose 5% in Water 250 ml @ 0.5 MG/MIN 25 mls/hr IV .Q10H [facility] Rx#: [id number] Fluconazole in NaCl,Iso- 100 Osm 200 mg In Saline 1 100ml.bag @ 100 mls/hr IVPB DAILY [facility] Rx#: [id number] Norepinephrine 4 mg In 442.693 Sodium Chloride 0.9% 250 ml @ 0.05 MCG/KG/MIN 12. 789 mls/hr IV .[id number] [facility] Rx#:[id number] Norepinephrine 4 mg In 267.300 40.241 Sodium Chloride 0.9% 250 ml @ 0.23 MCG/KG/MIN 58. 828 mls/hr IV .Q4H20M [facility] Rx#:[id number] Norepinephrine 8 mg In 0.213 386.005 Sodium Chloride 0.9% 500 ml 500 ml @ 0.05 MCG/KG/ MIN 12.789 mls/hr IV . Q24H [facility] Rx#:[id number] Oral 60 Output: Urine 419 1860 860 Other: Voiding Method Indwelling Catheter Indwelling Catheter Indwelling Catheter # Bowel Movements 2 - Exam PHYSICAL EXAMINATION: GENERAL: The patient is alert and oriented x3, not in any acute distress. Thin built HEENT: Pupils are round and equally reacting to light. EOMI. No scleral icterus. No conjunctival pallor. Normocephalic, atraumatic. No pharyngeal erythema. No thyromegaly. CARDIOVASCULAR: S1 and S2 present. No murmurs, rubs, or gallops. PULMONARY: Chest is clear to auscultation, no wheezing or crackles. ABDOMEN: Soft, nontender, nondistended, normoactive bowel sounds. No palpable organomegaly. MUSCULOSKELETAL: No joint swelling or deformity. EXTREMITIES: No cyanosis, clubbing, or pedal edema. NEUROLOGICAL: Gross neurological examination did not reveal any focal deficits. SKIN: Bilateral foot ulcers chronic diabetic as mentioned above - Labs CBC & Chem 7: 04/30/19 06:38 04/30/19 09:02 Labs: Abnormal Lab Results - Last 24 Hours (Table) 04/29/19 04/29/19 04/29/19 Range/Units 13:55 16:50 21:08 WBC (3.8-10.6) k/uL RBC (3.80-5.40) m/uL Hgb (11.4-16.0) gm/dL Hct (34.0-46.0) % RDW (11.5-15.5) % Neutrophils # (1.3-7.7) k/uL Lymphocytes # (1.0-4.8) k/uL Sodium (137-145) mmol/L Carbon Dioxide (22-30) mmol/L BUN (7-17) mg/dL Glucose (74-99) mg/dL POC Glucose (mg/dL) 203 H 264 H (75-99) mg/dL Plasma Lactic Acid Lawrence 10.6 H* (0.7-2.0) mmol/L Calcium (8.4-10.2) mg/dL 04/30/19 04/30/19 04/30/19 Range/Units 01:06 06:38 06:38 WBC 20.4 H (3.8-10.6) k/uL RBC 3.65 L (3.80-5.40) m/uL Hgb 10.8 L D (11.4-16.0) gm/dL Hct 33.3 L (34.0-46.0) % RDW 15.9 H (11.5-15.5) % Neutrophils # 18.6 H (1.3-7.7) k/uL Lymphocytes # 0.6 L (1.0-4.8) k/uL Sodium (137-145) mmol/L Carbon Dioxide (22-30) mmol/L BUN (7-17) mg/dL Glucose (74-99) mg/dL POC Glucose (mg/dL) 224 H (75-99) mg/dL Plasma Lactic Acid Lawrence 2.2 H* (0.7-2.0) mmol/L Calcium (8.4-10.2) mg/dL 04/30/19 04/30/19 04/30/19 Range/Units 06:47 09:02 11:23 WBC (3.8-10.6) k/uL RBC (3.80-5.40) m/uL Hgb (11.4-16.0) gm/dL Hct (34.0-46.0) % RDW (11.5-15.5) % Neutrophils # (1.3-7.7) k/uL Lymphocytes # (1.0-4.8) k/uL Sodium 135 L (137-145) mmol/L Carbon Dioxide 21 L (22-30) mmol/L BUN 26 H (7-17) mg/dL Glucose 151 H (74-99) mg/dL POC Glucose (mg/dL) 116 H 271 H (75-99) mg/dL Plasma Lactic Acid Lawrence (0.7-2.0) mmol/L Calcium 7.7 L (8.4-10.2) mg/dL Microbiology - Last 24 Hours (Table) 04/28/19 22:14 Urine Culture - Final Urine,Catheterized Kate albicans 04/29/19 00:51 Blood Culture - Preliminary Blood No Growth after 24 hours Assessment and Plan Plan: -Septic shock: Possible source of infection being urinary tract infection, continue with pressor support and wean off as tolerated can he with IV fluids as mentioned above can you the above-mentioned antibiotics at his meropenem on flucanazole. Infectious disease will evaluate the patient. -Atrial fibrillation with rapid ventricular rate patient is presently on amiodarone metoprolol is being held because of septic shock and the patient is requiring 2 pressors at this time. Patient is is again Eliquis which will be co ntinued. Atrial fibrillation was postdated by sepsis. Patient is presently rate controlled -Toxic encephalopathy and unresponsiveness secondary to sepsis and septic shock. -Coronary artery disease -The start failure chronic systolic dysfunction he of around 35% patient is actually hypovolemic secondary to sepsis but need to be cautious with fluids 10-type2 diabetes mellitus off on metformin and continue with sliding scale insulin. -Gastric reflux disease -Hyperlipidemia 7 hypertension, patient is presently hypotensive for above mentioned chronic medical problems patient will be resumed on appropriate home medications -Patient will need GI prophylaxis because of sepsis
--- NOTE | 2019-04-30 12:58 | P.PN ---
Subjective Progress Note Date: 04/30/19 Principal diagnosis: Septic shock secondary to urinary tract infection This is an 83-year-old female patient with multiple medical problems and comorbidities was transferred from [facility] because of altered mentation. The patient developed progressive worsening in her level of consciousness and [facility] facility. The patient was transferred to the hospital upon the request of the family. The patient apparently had some nausea and emesis prior to her coming to the hospital. Despite her altered mentation and diminished level of consciousness, she continued to move all 4 extremities. In the ED, the patient was found to be hypotensive with a systolic blood pressure in the mid 40s. The patient was found to be in atrial fibrillation with rapid ventricular response a nd the patient is known to have long-term atrial fibrillation and the patient has been on long-term and to coagulation with Eliquis. Noted the patient has congestion heart failure and the patient has an AICD in place. The patient has also severe peripheral vascular disease and the patient has diabetic foot ulcers lower extremities bilaterally at the level of the first metatarsal joint medially and this is a stage IV ulcer with draining material and previous cultures have indicated growth with pseudomonas aeruginosa, Enterobacter and stenotrophomonas. Furthermore, the patient has had previous UTIs and on 01/23/2019 urine culture was positive for pseudomonas aeruginosa and E. coli. Note that the pseudomonas was an ESBL producing organism.During this current admission, the patient got transferred to the intensive care unit. Initially there was the idea of making her hospice. Later on the family changes their mind and he wanted resuscitation. Based on this, the patient was given IV fluids and immediately 2 L was infused. She was started on pressors. Urine was obtained after a Saldivar catheter insertion and the urine was quite cloudy and dirty and purulent. The UA was consistent with infection and it included yeast. Based on this, a combination of meropenem and Diflucan was started. This morning, the patient is still in a shock state. Lactic acid is gradually climbed up from a baseline of 6.1 up to 12.6. The patient has become progressively more hypotensive. The patient become pressor dependent and norepinephrine infusion is running at 30 mcg/m. The patient also has nearly absent urine output at this point in time. Extremities are extremely cold and clammy. In fact no palpable pulses in the feet bilaterally. Posterior tibialis pulses can be obtained only by Doppler signal. No dorsalis pedis with Doppler significant and the legs bilaterally. The white cell count on today's evaluation up to 47. Despite all this, she is able to answer some simple questions. Atelectatic discussion with the daughter the bedside. We have decided to more resuscitation. Note that the chest x-ray in the emergency showed some CHF findings. CAT scan of the abdomen and pelvis showed trace fluid in the lung bases along with some compressive atelectasis in the lung bases. No other abnormalities were noted. She remains in atrial fibrillation. Amiodarone is still running at a maintenance 0.5 mg per minute to control heart rate. Patient was reevaluated today on 04/30/2019, remains in the ICU, she remains on 1.5 mcg/m of norepinephrine, and 0.03 units of vasopressin for low blood pressure. Patient is asymptomatic, she is resting in bed, does not seem to be in any form of distress. Remains on broad-spectrum antibiotics coverage for her urinary tract infection, and infectious disease consultation was initiated. She is receiving Merrem and she is back on her usual cardiac meds including amiodarone and Eliquis. Patient will likely need a PICC line, hence I will arrange for one to be done today, otherwise I would have to place a central line. Urine culture is positive for Kate, blood cultures are negative so far. CBC showed leukocytosis with WBC count of 20.4, hemoglobin of 10.8. Electrolytes and renal profile are normal. Lactic acid today is 2.2. Objective - Vital Signs Vital signs: Vital Signs Temp 98.4 F 04/30/19 12:00 Pulse 116 H 04/30/19 12:15 Resp 16 04/30/19 12:15 BP 110/60 04/30/19 12:15 Pulse Ox 91 L 04/30/19 12:15 Intake & Output 04/29/19 04/30/19 04/30/19 18:59 06:59 18:59 Intake Total 3892.906 2438.305 890.241 Output Total 419 1860 860 Balance 3473.906 578.305 30.241 Weight 67.132 kg 72.8 kg Intake: IV 3200 1675 500 Amiodarone 300 mg In 275 Dextrose 5% in Water 250 ml @ 0.5 MG/MIN 25 mls/hr IV .Q10H [facility] Rx#: [id number] Meropenem 1 gm In Sodium 100 200 Chloride 0.9% 100 ml @ 200 mls/hr IVPB Q12H [facility] Rx#:[id number] Sodium Chloride 0.9% 1, 3100 1200 500 000 ml @ 100 mls/hr IV . Q10H [facility] Rx#:[id number] Intake, IV Titration 692.906 703.305 390.241 Amount Amiodarone 300 mg In 50 Dextrose 5% in Water 250 ml @ 0.5 MG/MIN 25 mls/hr IV .Q10H [facility] Rx#: [id number] Amiodarone 300 mg In 250 Dextrose 5% in Water 250 ml @ 0.5 MG/MIN 25 mls/hr IV .Q10H [facility] Rx#: [id number] Amiodarone 300 mg In 250 Dextrose 5% in Water 250 ml @ 0.5 MG/MIN 25 mls/hr IV .Q10H [facility] Rx#: [id number] Fluconazole in NaCl,Iso- 100 Osm 200 mg In Saline 1 100ml.bag @ 100 mls/hr IVPB DAILY [facility] Rx#: [id number] Norepinephrine 4 mg In 442.693 Sodium Chloride 0.9% 250 ml @ 0.05 MCG/KG/MIN 12. 789 mls/hr IV .[id number] [facility] Rx#:[id number] Norepinephrine 4 mg In 267.300 40.241 Sodium Chloride 0.9% 250 ml @ 0.23 MCG/KG/MIN 58. 828 mls/hr IV .Q4H20M [facility] Rx#:[id number] Norepinephrine 8 mg In 0.213 386.005 Sodium Chloride 0.9% 500 ml 500 ml @ 0.05 MCG/KG/ MIN 12.789 mls/hr IV . Q24H [facility] Rx#:[id number] Oral 60 Output: Urine 419 1860 860 Other: Voiding Method Indwelling Catheter Indwelling Catheter Indwelling Catheter # Bowel Movements 2 - Exam Physical Exam: Revealed 83-year-old female in no distress. Very pleasant, daughter is at bedside. Head: Atraumatic, normocephalic. HEENT:[Neck is supple.] [No neck masses.] [No thyromegaly.] [No JVD.] PERRLA, EOMI, no icterus. Chest: [Symmetrical chest expansion, minimal crackles at the bases, no rhonchi and no wheezes. Cardiac Exam: Irregular irregular rhythm. [Normal S1 and S2, no S3 gallop, no murmur.] Abdomen: [Soft, nontender, no megaly, no rebound, no guarding, normal bowel sounds.] Extremities: [No clubbing, 1+ bipedal edema, no cyanosis, multiple foot ulcers were noted, wrapped with sterile dressing, been evaluated in the past by vascular surgery and infectious disease for her ulcers. Neurological Exam: Alert and oriented 3. [No focal neurologic deficit.] Psychiatric: Normal mood, affect and normal mental status examination. Musculoskeletal: Generally weak, otherwise unremarkable, no deformities, no limitation in range of motion. - Labs CBC & Chem 7: 04/30/19 06:38 04/30/19 09:02 Labs: Abnormal Lab Results - Last 24 Hours (Table) 04/29/19 04/29/19 04/29/19 Range/Units 13:55 16:50 21:08 WBC (3.8-10.6) k/uL RBC (3.80-5.40) m/uL Hgb (11.4-16.0) gm/dL Hct (34.0-46.0) % RDW (11.5-15.5) % Neutrophils # (1.3-7.7) k/uL Lymphocytes # (1.0-4.8) k/uL Sodium (137-145) mmol/L Carbon Dioxide (22-30) mmol/L BUN (7-17) mg/dL Glucose (74-99) mg/dL POC Glucose (mg/dL) 203 H 264 H (75-99) mg/dL Plasma Lactic Acid Lawrence 10.6 H* (0.7-2.0) mmol/L Calcium (8.4-10.2) mg/dL 04/30/19 04/30/19 04/30/19 Range/Units 01:06 06:38 06:38 WBC 20.4 H (3.8-10.6) k/uL RBC 3.65 L (3.80-5.40) m/uL Hgb 10.8 L D (11.4-16.0) gm/dL Hct 33.3 L (34.0-46.0) % RDW 15.9 H (11.5-15.5) % Neutrophils # 18.6 H (1.3-7.7) k/uL Lymphocytes # 0.6 L (1.0-4.8) k/uL Sodium (137-145) mmol/L Carbon Dioxide (22-30) mmol/L BUN (7-17) mg/dL Glucose (74-99) mg/dL POC Glucose (mg/dL) 224 H (75-99) mg/dL Plasma Lactic Acid Lawrence 2.2 H* (0.7-2.0) mmol/L Calcium (8.4-10.2) mg/dL 04/30/19 04/30/19 04/30/19 Range/Units 06:47 09:02 11:23 WBC (3.8-10.6) k/uL RBC (3.80-5.40) m/uL Hgb (11.4-16.0) gm/dL Hct (34.0-46.0) % RDW (11.5-15.5) % Neutrophils # (1.3-7.7) k/uL Lymphocytes # (1.0-4.8) k/uL Sodium 135 L (137-145) mmol/L Carbon Dioxide 21 L (22-30) mmol/L BUN 26 H (7-17) mg/dL Glucose 151 H (74-99) mg/dL POC Glucose (mg/dL) 116 H 271 H (75-99) mg/dL Plasma Lactic Acid Lawrence (0.7-2.0) mmol/L Calcium 7.7 L (8.4-10.2) mg/dL Microbiology - Last 24 Hours (Table) 04/28/19 22:14 Urine Culture - Final Urine,Catheterized Kate albicans 04/29/19 00:51 Blood Culture - Preliminary Blood No Growth after 24 hours Assessment and Plan Assessment: Impression: 1 septic shock secondary to urinary tract infection, felt to be most likely ESBL producing pseudomonas and E. coli unless for otherwise. 2 acute lactic acidosis secondary to sepsis and septic shock 3 acute kidney injury secondary to sepsis and septic shock 4 multiple comorbidities including atrial fibrillation LV dysfunction ejection fraction of 35% and previous AICD placement, underlying coronary artery disease, type 2 diabetes, diabetic foot ulcers, history of hypertension, history of cervical cancer, history of diverticular disease, history of chronic pancreatitis, severe peripheral vessel occlusive disease involving lower extremities, and medical debility. Recommendation: Continue present treatment plan including antibiotics, cardiac meds, initiated and infectious disease consultation, discussed CODE STATUS with the daughter and with the patient, patient is DO NOT RESUSCITATE. Prognosis is definitely poor and guarded. We'll continue to follow. Time with Patient: Less than 30
[2019-04-30] MEDS: ONDANSETRON 4 MG/2 ML VIAL IVP PRN ×2 (13:38→19:54)
[2019-04-30] MEDS ORDERED: LIDOCAINE 1% INJ 10MG/ML (20 ML MDV) SQ ONE (15:35)
--- NOTE | 2019-04-30 15:59 | XR ---
EXAMINATION TYPE: XR chest 1V portable DATE OF EXAM: 04/30/2019 COMPARISON: Prior chest x-ray 04/29/2019 HISTORY: Status post PICC line TECHNIQUE: Single frontal view of the chest is obtained. FINDINGS: Patient is markedly rotated. Right-sided PICC line has been placed in the interval is over lying the region of the cavoatrial junction. No evident pneumothorax or other significant interval ch buddy. IMPRESSION: No evident complication status post PICC line placement.
--- NOTE | 2019-04-30 16:20 | IR ---
EXAMINATION TYPE: IR cvc insert >=5 years DATE OF EXAM: 04/30/2019 COMPARISON: NONE HISTORY: Sepsis, needs long-term intravenous access for antibiotics, total parenteral nutrition FINDINGS: Maximal barrier technique was utilized. The skin overlying the right basilic vein was loca lized with ultrasound and noted to be compressible and patent by ultrasound. An ultrasound image was obtained and submitted on patient's chart. Sterile technique utilized with the ultrasound machine. T he skin overlying was prepped and draped and Lidocaine used for local anesthesia. A skin pam was ma de with a scalpel. Access was gained to the vein under direct ultrasound guidance with a 21-gauge ne edle and a 0.018 inch wire was advanced. Access site was dilated with a peel-away sheath and the cat heter tailored to length. Catheter advanced centrally and a post procedure chest x-ray verified plac ement with the tip near the cavoatrial junction. Catheter was fixed to the skin and a sterile dressi ng placed. Hemostasis achieved and the catheter was aspirated and flushed with sterile saline. The patient remained in stable condition. IMPRESSION: STATUS POST ULTRASOUND GUIDED PICC LINE PLACEMENT, READY FOR USE. THIS PROCEDURE WAS PER FORMED BY THE UNDERSIGNED.
[2019-04-30 16:59] LABS: Glucose,Whole Blood 334 mg/dL (75-99)
[2019-04-30] MEDS: THIAMINE 100 MG TAB PO SCH (17:15)
[2019-04-30 20:17] LABS: Glucose,Whole Blood 199 mg/dL (75-99)
--- NOTE | 2019-05-01 00:12 | P.CONS ---
History of Present Illness - Reason for Consult Consult date: 04/30/19 Bilateral lower extremity wound and UTI Requesting physician: Cj Choe - Chief Complaint Unresponsiveness and hypotension - History of Present Illness Patient is a 83-year-old female is currently a resident of [facility] patient was sent to the ER from the long-term for evaluation of mental status changes and significant hypotension. The symptom going on for the day before the patient was sent to the, located history of any fever or chills on arrival to the ER the patient was hypertensive with a systolic 40 patient had been recently treated with IV fluid she also have elevated white count but no temperature patient noticed to have significantly positive UA CT also have a CT of abdominal pelvis which shows bilateral pleural effusion and consolidation some chronic changes to the pancreas but no intra- abdominal abscess patient has been treated with the meropenem as she had previously grown ESBL E. coli in addition pseudomonas aeruginosa patient blood pressures subsequent stabilizing still requiring low-dose Lopressor support she did have a history of wound on bilateral feet area for which infectious disease was positive today for further recommendation. Patient has been complaining some pain to the foot wound area more of a dull aching pain and no significant radiation there is no purulent drainage from any of these wound or surrounding redness patient denies having any chest pain and some shortness of breath on minimal exertion tender however, cannot be given a sputum no nausea no vomiting and no choking on the food Review of Systems Positive points has been mentioned in HPI rest of the systems are negative Past Medical History Past Medical History: Atrial Fibrillation, Coronary Artery Disease (CAD), Cancer, Diabetes Mellitus, GERD/Reflux, Hearing Disorder / Deafness, Hyperlipidemia, Hypertension, Osteoarthritis (OA), Skin Disorder Additional Past Medical History / Comment(s): Coronary artery disease, congestion heart failure with an ejection fraction of 35-40%, history of AICD placement, history of chronic atrial fibrillation, diabetes mellitus, diabetic ulcers in the feet bilaterally, chronic infected diabetic wounds, recurrent UTI, hypertension, impaired hearing, hyperlipidemia, acid reflux, history of cervical cancer, history of diverticulosis/diverticulitis, history of right arm fracture, history of chronic pancreatitis, history of gallstones, severe peripheral vascular disease, history of cutaneous fungal infection/Kate, long-term resident and the patient resides at medical [place]. History of Any Multi-Drug Resistant Organisms: ESBL Year Discovered:: 01/23/19 ESBL E.coli MDRO Source:: Urine Past Surgical History: AICD, Bowel Resection, Cholecystectomy, Heart Catheterization, Hysterectomy, Orthopedic Surgery Additional Past Surgical History / Comment(s): AICD defibulator 09-15-17, LT ROTATOR CUFF X2, BUNIONECTOMY JACQUELINE,, JACQUELINE BREAST LUMPECTOMIES-BOTH NEG,, X2 ERCP, RT HAND SX PINS PLACED-BUT SINCE REMOVED, CATARACTS. 12/01/17 picc line inserted- since removed Past Anesthesia/Blood Transfusion Reactions: No Reported Reaction Type of Cardiac Device: AICD Device Placement Date:: 09-15-17 Past Psychological History: No Psychological Hx Reported Additional Psychological History / Comment(s): PT LIVES IN [facility]. PT USES WHE[employer]. Smoking Status: Former smoker Past Alcohol Use History: None Reported Additional Past Alcohol Use History / Comment(s): Smoked sporadically from 1964 till 1967 Past Drug Use History: None Reported - Past Family History Mother Family Medical History: No Reported History Additional Family Medical History / Comment(s): HEART DISEASE runs in the patient's family. Daughter is healthy at this point in time. has been . Father Family Medical History: Coronary Artery Disease (CAD), Diabetes Mellitus Medications and Allergies Home Medications Medication Instructions Recorded Confirmed Type Pentoxifylline 400 mg PO TID@0800,1200,1700 12/13/16 04/28/19 History Vit C/E/Zn/Coppr/Lutein/Zeaxan 1 cap PO DAILY@1700 11/10/17 04/28/19 History [Preservision Areds 2 Softgel] metFORMIN HCL 1,000 mg PO BID@0800,1700 11/10/17 04/28/19 History Ergocalciferol [Vitamin D2 50,000 unit PO WE 09/25/18 04/28/19 History (DRISDOL)] Magnesium Oxide [Mag-Ox] 400 mg PO BID@0800,1700 09/25/18 04/28/19 History Omeprazole 40 mg PO DAILY@0800 09/25/18 04/28/19 History Thiamine [Vitamin B-1] 100 mg PO DAILY@1700 09/25/18 04/28/19 History Tolterodine Tartrate [Detrol LA] 4 mg PO DAILY@0800 09/25/18 04/28/19 History Vitamin B Complex 1 cap PO DAILY@1700 09/25/18 04/28/19 History Diclofenac Sodium Gel [Voltaren 2 gm TOPICAL QID tube 10/08/18 04/28/19 Rx Gel] Collagenase [Santyl] 1 applic TOPICAL Q24H 10/13/18 04/28/19 History Ondansetron HCl [Zofran] 4 mg PO QID PRN 10/13/18 04/28/19 History Sertraline HCl [Zoloft] 25 mg PO DAILY 10/13/18 04/28/19 History Magnesium Hydroxide [Milk of 30 ml PO Q48H PRN 11/13/18 04/28/19 History Magnesia Concentrate] Na Phos,M-B/Na Phos,Di-Ba [Fleet 1 dose RECTAL DAILY PRN 11/13/18 04/28/19 History Adult] Simethicone 80 mg PO TID@0800,1200,1700 11/27/18 04/28/19 History Apixaban [Eliquis] 5 mg PO BID@0800,1700 04/23/19 04/28/19 History Aspirin 81 mg PO DAILY@1700 04/23/19 04/28/19 History Bisacodyl [Dulcolax] 10 mg RECTAL DAILY PRN 04/23/19 04/28/19 History Docusate [Colace] 100 mg PO BID@0800,1700 04/23/19 04/28/19 History Furosemide [Lasix] 20 mg PO BID@0600,1400 04/23/19 04/28/19 History Gabapentin [Neurontin] 200 mg PO TID@0600,1400,2100 04/23/19 04/28/19 History Liquacel (Amino Acids) 30 ml PO BID@0800,1700 04/23/19 04/28/19 History Lisinopril [Prinivil] 20 mg PO DAILY@0800 04/23/19 04/28/19 History Metoprolol Tartrate [Lopressor] 50 mg PO BID@0800,1700 04/23/19 04/28/19 History Potassium Chloride ER [K-Dur 10] 10 meq PO BID@0800,1700 04/23/19 04/28/19 History Talc-Zinc Oxide Powder 81-15% 1 applic TOPICAL BID@0800,1700 04/23/19 04/28/19 History Ursodiol 300 mg PO BID@0800,2100 /08/3004/28/19 History guaiFENesin [guaiFENesin Oral 200 mg PO Q4H PRN 04/23/19 04/28/19 History Solution] Acetaminophen Tab [Tylenol] 325 mg PO Q6HR PRN tab 04/25/19 04/28/19 Rx INSULIN ASPART (NovoLOG) [NovoLOG See Protocol SQ AC-TID #1 vial 04/25/19 04/28/19 Rx (formulary)] traMADol HCL [Ultram] 25 mg PO Q4HR PRN 2 Days #8 tab 04/25/19 04/28/19 Rx Midodrine HCl [ProAmantine] 2.5 mg PO BID 04/28/19 04/28/19 History Allergies Allergy/AdvReac Type Severity Reaction Status Date / Time levofloxacin [From Levaquin] Allergy Mild Rash/Hives Verified 04/28/19 17:28 morphine AdvReac Rapid Verified 04/28/19 17:28 Heart Rate Physical Exam Vitals: Vital Signs Temp Pulse Resp BP Pulse Ox 04/30/19 12:15 116 H 16 110/60 91 L 04/30/19 12:00 98.4 F 100 23 99/57 91 L 04/30/19 11:45 105 H 12 99/57 95 04/30/19 11:30 124 H 21 89/66 91 L 04/30/19 11:15 113 H 28 H 89/66 91 L 04/30/19 11:00 111 H 20 116/78 91 L 04/30/19 10:45 113 H 22 116/78 91 L 04/30/19 10:30 109 H 21 102/84 91 L 04/30/19 10:15 94 25 H 102/84 04/30/19 10:00 103 H 25 H 98/65 04/30/19 09:45 128 H 13 98/65 04/30/19 09:30 109 H 15 108/52 04/30/19 09:15 98 12 108/52 81 L 04/30/19 09:00 96 19 119/96 04/30/19 08:45 106 H 22 119/96 96 04/30/19 08:30 106 H 22 88/65 98 04/30/19 08:15 112 H 21 88/65 95 04/30/19 08:00 98.4 F 113 H 23 111/53 95 04/30/19 07:45 114 H 26 H 111/53 97 04/30/19 07:30 106 H 22 104/70 97 04/30/19 07:15 97 19 104/70 96 04/30/19 07:00 106 H 23 100/61 98 04/30/19 06:45 101 H 22 106/58 97 04/30/19 06:30 110 H 22 113/66 96 04/30/19 06:15 116 H 15 105/53 96 04/30/19 06:00 100 22 93/52 96 04/30/19 05:45 103 H 23 102/61 96 04/30/19 05:30 110 H 23 101/80 98 04/30/19 05:15 98 13 106/52 98 04/30/19 05:00 96 21 103/54 96 04/30/19 04:45 96 22 113/59 97 04/30/19 04:30 131 H 18 93/53 97 04/30/19 04:15 113 H 22 89/52 97 04/30/19 04:00 97.7 F 103 H 15 105/53 96 04/30/19 03:45 110 H 19 113/54 98 04/30/19 03:30 111 H 22 96/57 98 04/30/19 03:15 102 H 21 112/61 97 04/30/19 03:00 121 H 25 H 114/54 96 04/30/19 02:45 112 H 23 94/62 96 04/30/19 02:30 112 H 22 112/44 97 04/30/19 02:15 118 H 22 104/57 95 04/30/19 02:00 121 H 22 104/56 96 04/30/19 01:45 103 H 20 109/51 97 04/30/19 01:30 115 H 22 127/60 95 04/30/19 01:15 108 H 19 120/46 97 04/30/19 01:00 99.2 F 111 H 21 105/65 97 04/30/19 00:45 124 H 24 100/63 96 04/30/19 00:30 120 H 23 97/65 95 04/30/19 00:15 110 H 16 111/59 95 04/30/19 00:00 111 H 17 126/62 97 04/29/19 23:45 112 H 21 110/63 98 04/29/19 23:30 124 H 20 94/65 95 04/29/19 23:15 121 H 27 H 105/64 97 04/29/19 23:00 112 H 20 76/42 98 04/29/19 22:45 125 H 20 114/56 96 04/29/19 22:30 99 22 108/40 95 04/29/19 22:00 134 H 22 123/57 95 04/29/19 21:45 113 H 21 111/63 97 04/29/19 21:30 110 H 25 H 123/61 94 L 04/29/19 21:15 129 H 25 H 107/59 96 04/29/19 21:00 117 H 20 112/74 96 04/29/19 20:45 142 H 21 101/64 94 L 04/29/19 20:36 95 04/29/19 20:30 140 H 23 117/51 97 04/29/19 20:15 121 H 20 108/55 95 04/29/19 20:00 99.7 F H 118 H 23 106/55 95 04/29/19 19:46 104 H 18 113/60 96 04/29/19 19:31 105 H 18 81/64 96 04/29/19 19:15 104 H 17 117/66 98 04/29/19 19:00 107 H 19 123/52 97 04/29/19 18:00 120 H 24 100/47 98 04/29/19 17:00 112 H 19 104/61 98 04/29/19 16:00 98.0 F 108 H 16 104/47 98 04/29/19 15:00 118 H 17 99/60 99 04/29/19 14:15 112 H 20 101/70 99 04/29/19 14:00 97 16 98/58 96 04/29/19 13:45 112 H 16 104/57 96 04/29/19 13:30 130 H 16 104/50 98 04/29/19 13:15 107 H 16 101/59 97 04/29/19 13:00 122 H 13 107/47 99 04/29/19 12:45 118 H 14 106/65 99 Intake and Output 04/29/19 04/30/19 04/30/19 22:59 06:59 14:59 Intake Total 2561.525 6644.320 890.241 Output Total 745 1440 860 Balance 577.198 76.320 30.241 Intake: IV 875 1200 500 Amiodarone 300 mg In 75 200 Dextrose 5% in Water 250 ml @ 0.5 MG/MIN 25 mls/hr IV .Q10H KEVEN Rx#: [id number] Meropenem 1 gm In Sodium 100 100 Chloride 0.9% 100 ml @ 200 mls/hr IVPB Q12H KEVEN Rx#:[id number] Sodium Chloride 0.9% 1, 700 900 500 000 ml @ 100 mls/hr IV . Q10H KEVEN Rx#:[id number] Intake, IV Titration 387.198 316.320 390.241 Amount Amiodarone 300 mg In 50 Dextrose 5% in Water 250 ml @ 0.5 MG/MIN 25 mls/hr IV .Q10H KEVEN Rx#: [id number] Amiodarone 300 mg In 250 Dextrose 5% in Water 250 ml @ 0.5 MG/MIN 25 mls/hr IV .Q10H KEVEN Rx#: [id number] Fluconazole in NaCl,Iso- 100 Osm 200 mg In Saline 1 100ml.bag @ 100 mls/hr IVPB DAILY KEVEN Rx#: [id number] Norepinephrine 4 mg In 0.98 266.320 40.241 Sodium Chloride 0.9% 250 ml @ 0.23 MCG/KG/MIN 58. 828 mls/hr IV .Q4H20M KEVEN Rx#:[id number] Norepinephrine 8 mg In 386.218 Sodium Chloride 0.9% 500 ml 500 ml @ 0.05 MCG/KG/ MIN 12.789 mls/hr IV . Q24H KEVEN Rx#:[id number] Oral 60 Output: Urine 745 1440 860 Other: Voiding Method Indwelling Catheter Indwelling Catheter Indwelling Catheter # Bowel Movements 2 Weight 72.8 kg GENERAL DESCRIPTION: Elderly female lying in bed, no distress. No tachypnea or accessory muscle of respiration use. HEENT: Shows Pallor , no scleral icterus. Oral mucous membrane is dry. No phary ngeal erythema or thrush NECK: Trachea central, no thyromegaly. LUNGS: Unlabored breathing. Decreased breath sound at the base. No wheeze or crackle. HEART: S1, S2, regular rate and rhythm. No loud murmur ABDOMEN: Soft, no tenderness , guarding or rigidity, no organomegaly EXTREMITIES: Patient had did have a wound on the medial aspect of the right foot as well as on the medial and the lateral aspect of the left foot wound base did have some slough tissue but no surrounding redness or any foul-smelling drainage SKIN: No rash, no masses palpable. NEUROLOGICAL: The patient is awake, alert, oriented x2, mood and affect normal. Results CBC & Chem 7: 04/30/19 06:38 04/30/19 09:02 Labs: Abnormal Lab Results - Last 24 Hours (Table) 04/29/19 04/29/19 04/29/19 Range/Units 13:55 16:50 21:08 WBC (3.8-10.6) k/uL RBC (3.80-5.40) m/uL Hgb (11.4-16.0) gm/dL Hct (34.0-46.0) % RDW (11.5-15.5) % Neutrophils # (1.3-7.7) k/uL Lymphocytes # (1.0-4.8) k/uL Sodium (137-145) mmol/L Carbon Dioxide (22-30) mmol/L BUN (7-17) mg/dL Glucose (74-99) mg/dL POC Glucose (mg/dL) 203 H 264 H (75-99) mg/dL Plasma Lactic Acid Lawrence 10.6 H* (0.7-2.0) mmol/L Calcium (8.4-10.2) mg/dL 04/30/19 04/30/19 04/30/19 Range/Units 01:06 06:38 06:38 WBC 20.4 H (3.8-10.6) k/uL RBC 3.65 L (3.80-5.40) m/uL Hgb 10.8 L D (11.4-16.0) gm/dL Hct 33.3 L (34.0-46.0) % RDW 15.9 H (11.5-15.5) % Neutrophils # 18.6 H (1.3-7.7) k/uL Lymphocytes # 0.6 L (1.0-4.8) k/uL Sodium (137-145) mmol/L Carbon Dioxide (22-30) mmol/L BUN (7-17) mg/dL Glucose (74-99) mg/dL POC Glucose (mg/dL) 224 H (75-99) mg/dL Plasma Lactic Acid Lawrence 2.2 H* (0.7-2.0) mmol/L Calcium (8.4-10.2) mg/dL 04/30/19 04/30/19 04/30/19 Range/Units 06:47 09:02 11:23 WBC (3.8-10.6) k/uL RBC (3.80-5.40) m/uL Hgb (11.4-16.0) gm/dL Hct (34.0-46.0) % RDW (11.5-15.5) % Neutrophils # (1.3-7.7) k/uL Lymphocytes # (1.0-4.8) k/uL Sodium 135 L (137-145) mmol/L Carbon Dioxide 21 L (22-30) mmol/L BUN 26 H (7-17) mg/dL Glucose 151 H (74-99) mg/dL POC Glucose (mg/dL) 116 H 271 H (75-99) mg/dL Plasma Lactic Acid Lawrence (0.7-2.0) mmol/L Calcium 7.7 L (8.4-10.2) mg/dL Microbiology - Last 24 Hours (Table) 04/28/19 22:14 Urine Culture - Final Urine,Catheterized Kate albicans 04/29/19 00:51 Blood Culture - Preliminary Blood No Growth after 24 hours Assessment and Plan Assessment: 1-patient presented to hospital with sepsis in this patient who did have significantly low blood pressure elevated white count source is likely urinary tract infection in this patient who did have previous history of UTI from ESBL E. coli and pseudomonas aeruginosa however currently not showing chronic and albicans in this patient with no history of Saldivar cath patient at the long-term 2-patient with bilateral diabetic foot wound with no evidence of any cellulitis (1) Sepsis Current Visit: Yes Status: Acute Code(s): A41.9 - SEPSIS, UNSPECIFIED ORGANISM SNOMED Code(s): 42157728 (2) UTI (urinary tract infection) Current Visit: Yes Status: Acute Code(s): N39.0 - URINARY TRACT INFECTION, SITE NOT SPECIFIED SNOMED Code(s): 38081306 (3) Wound, open, foot Current Visit: Yes Status: Acute Code(s): S91.309A - UNSPECIFIED OPEN WOUND, UNSPECIFIED FOOT, INITIAL ENCOUNTER SNOMED Code(s): 577775334 Plan: 1-patient is currently covered with meropenem 1 g every 12hr and Diflucan to continue while waiting for clinical condition to stabilize 2-local wound care to bilateral feet wound with aziza followed by faisal magana to change daily 3-IV fluids we will follow on clinical condition and culture to further adjust medication if needed Thank you for this consultation will follow this patient along with you Time with Patient: Greater than 30
[2019-05-01] MEDS: NOREPINEPHRINE 4 MG in SODIUM CHLORIDE 0.9% 250 ML IV SCH ×6 (03:18→22:58)
[2019-05-01] MEDS: AMIODARONE 300 MG in DEXTROSE 5% IN WATER 250 ML IV SCH ×2 (03:18)
[2019-05-01] MEDS: ACETAMINOPHEN TAB 325 MG TAB PO PRN ×3 (03:57→19:10)
[2019-05-01 05:39] LABS: Basophils % (A) 0 %; Eosinophils # (A) 0.1 k/uL (0-0.7); Eosinophils % (A) 0 %; HCT 32.6 % (34.0-46.0); HGB 10.3 gm/dL (11.4-16.0); Hypochromasia Slight; Lymphocytes # (A) 0.6 k/uL (1.0-4.8); Lymphocytes % (A) 4 %; MCH 28.7 pg (25.0-35.0); MCHC 31.6 g/dL (31.0-37.0); MCV 90.9 fL (80.0-100.0); Mean Platelet Volume 7.2; Monocytes # (A) 0.7 k/uL (0-1.0); Monocytes % (A) 5 %; Neutrophils # (A) 12.5 k/uL (1.3-7.7); Neutrophils % (A) 89 %; Platelet Count 239 k/uL (150-450); RBC 3.59 m/uL (3.80-5.40); RDW 15.8 % (11.5-15.5); WBC 14.1 k/uL (3.8-10.6)
[2019-05-01 05:50] LABS: African American GFR (CKD) >90 (>60 ml/min/1.73 sqM); Anion Gap 7 mmol/L; Blood Urea Nitrogen 19 mg/dL (7-17); Calcium 7.9 mg/dL (8.4-10.2); Carbon Dioxide 23 mmol/L (22-30); Chloride 107 mmol/L (98-107); Glucose 136 mg/dL (74-99); Sodium 137 mmol/L (137-145)
[2019-05-01] MEDS ORDERED: Potassium Replacement Protocol 1 EACH MISC MISCELLANE PRN (05:57)
[2019-05-01] MEDS: POTASSIUM CHLORIDE 20 MEQ in WATER FOR INJECTION 1 100ML.BAG IVPB SCH ×2 (06:08→07:43)
[2019-05-01 07:12] LABS: Glucose,Whole Blood 128 mg/dL (75-99)
[2019-05-01] MEDS: SODIUM CHLORIDE 0.9% 50 ML with VASOPRESSIN 20 UNIT IVPB SCH ×6 (07:22→17:40)
[2019-05-01] MEDS: INSULIN ASPART (NovoLOG) 100 UNIT/ML VIAL SQ SCH ×4 (07:25→20:53)
[2019-05-01] MEDS: DOCUSATE 100 MG CAP PO SCH ×2 (07:27→16:28)
[2019-05-01] MEDS: FLUCONAZOLE IN NACL,ISO-OSM 100 MG in SALINE 1 50ML.BAG IVPB SCH (07:42)
[2019-05-01] MEDS: URSODIOL 300 MG CAP PO SCH ×2 (07:43→20:54)
[2019-05-01] MEDS: SIMETHICONE 80 MG CHEWABLE PO SCH ×3 (07:43→17:40)
[2019-05-01] MEDS: SERTRALINE 25 MG TAB PO SCH (07:43)
[2019-05-01] MEDS: ASPIRIN 81 MG PO SCH (07:43)
[2019-05-01] MEDS: PANTOPRAZOLE 40 MG/10 ML VIAL IV SCH (07:43)
[2019-05-01] MEDS: APIXABAN 5 MG TAB PO SCH ×2 (07:43→20:54)
[2019-05-01] MEDS: OXYBUTYNIN 10 MG TAB.ER.24 PO SCH (07:43)
[2019-05-01] MEDS: PENTOXIFYLLINE 400 MG TABLET.ER PO SCH ×3 (07:43→17:40)
[2019-05-01] MEDS: SODIUM CHLORIDE 0.9% 1,000 ML IV SCH ×2 (07:44→17:40)
--- NOTE | 2019-05-01 11:21 | XR ---
EXAMINATION TYPE: XR chest 1V portable DATE OF EXAM: 05/01/2019 COMPARISON: Prior chest x-ray 04/30/2019 HISTORY: Fluid overload TECHNIQUE: Single frontal view of the chest is obtained. FINDINGS: The patient is rotated. Right-sided PICC line is present, distal tip is coursing into the superior vena cava region. Intracardiac defibrillator lead is stable, generator in the left pectoral region. There is basilar increased density bilaterally, hemidiaphragms are obscured. No evident pneum othorax. Heart is likely enlarged. There is chronic posttraumatic change to the proximal right humeru s. IMPRESSION: Rotated exam. Cardiomegaly and basilar effusions, correlate for congestive heart failure . Pneumonia not excluded.
[2019-05-01] MEDS: POTASSIUM CHLORIDE 10 MEQ in WATER FOR INJECTION 1 100ML.BAG IVPB SCH ×2 (11:31→13:33)
[2019-05-01] MEDS: ONDANSETRON 4 MG/2 ML VIAL IVP PRN (11:31)
[2019-05-01] MEDS: MEROPENEM 1 GM in SODIUM CHLORIDE 0.9% 100 ML IVPB SCH (11:32)
[2019-05-01 11:35] LABS: Glucose,Whole Blood 357 mg/dL (75-99)
--- NOTE | 2019-05-01 12:10 | P.PN ---
Subjective Progress Note Date: 05/01/19 Principal diagnosis: 82-year-old pleasant female was admitted with septic shock most probably because of urinary tract infection patient did have symptoms of UTI before admission was actually found unresponsive doing much better with lactic acid has come down to 2.4 patient vasopressin will be discontinued patient will be continued on nor epinephrine. Urine cultures were positive for Kate urine output improved patient creatinine Around 2.9 because of which I'm increasing her dose of meropenem infectious disease was consulted patient has bilateral leg wounds will need local wound care and probably not the source of infection. Constitutional: Denied any fatigue denied any fever. Cardio vascular: denied any chest pain, palpitations Gastrointestinal denied any nausea vomiting Pulmonary: Denied any shortness of breath cough Neurologic denied any new focal deficits 05/01/2019 This is an 82-year-old female who is currently in the ICU and being closely monitored. Patient is sitting up in the bed in no acute distress with daughter at the bedside. Patient is currently on 2 L of oxygen via nasal cannula and normally is not O2 dependent at [facility]. Oxygen saturations have been in the high 80s to low 90s. Patient denies any shortness of breath or chest pain at th is time. Patient is having a little bit of abdominal discomfort in the mid epigastric region. Patient states that she is eating small amounts and denies any nausea or vomiting at this time. Patient is afebrile. Patient is having some low blood pressure readings but per the patient and family member this is normal for her. Patient was currently on an amiodarone drip and being closely monitored. Awaiting cardiology recommendations. Patient does have a Saldivar catheter in place and is draining clear yellow urine. Objective - Vital Signs Vital signs: Vital Signs Temp 98.2 F 05/01/19 08:00 Pulse 124 H 05/01/19 11:00 Resp 24 05/01/19 11:00 BP 108/68 05/01/19 11:00 Pulse Ox 90 L 05/01/19 11:00 Intake & Output 04/30/19 05/01/19 05/01/19 18:59 06:59 18:59 Intake Total 2891.264 4584.177 650 Output Total 1100 1700 148 Balance 654.640 -263.823 502 Weight 73.5 kg Intake: IV 1100 1300 600 Meropenem 1 gm In Sodium 100 100 Chloride 0.9% 100 ml @ 200 mls/hr IVPB Q12H [facility] Rx#:[id number] Potassium Chloride 20 meq 200 In Water For Injection 1 100ml.bag @ 50 mls/hr IVPB Q2H [facility] Rx#: [id number] Sodium Chloride 0.9% 1, 1000 1200 400 000 ml @ 100 mls/hr IV . Q10H [facility] Rx#:[id number] Intake, IV Titration 534.640 136.177 50 Amount Amiodarone 300 mg In 250 Dextrose 5% in Water 250 ml @ 0.5 MG/MIN 25 mls/hr IV .Q10H [facility] Rx#: [id number] Amiodarone 300 mg In 75 25 Dextrose 5% in Water 250 ml @ 0.5 MG/MIN 25 mls/hr IV .Q10H [facility] Rx#: [id number] Fluconazole in NaCl,Iso- 50 Osm 100 mg In Saline 1 50ml.bag @ 50 mls/hr IVPB DAILY [facility] Rx#:[id number] Fluconazole in NaCl,Iso- 100 Osm 200 mg In Saline 1 100ml.bag @ 100 mls/hr IVPB DAILY [facility] Rx#: [id number] Norepinephrine 4 mg In 109.640 111.177 0 Sodium Chloride 0.9% 250 ml @ 0.23 MCG/KG/MIN 58. 828 mls/hr IV .Q4H20M [facility] Rx#:[id number] Oral 120 Output: Urine 1100 1700 148 Other: Voiding Method Indwelling Catheter Indwelling Catheter Indwelling Catheter # Bowel Movements 2 2 1 - Exam Gen: This is a 83-year-old female sitting up in bed in no acute distress. Daughter is at the bedside. Vital signs are stable. Blood pressure is 99/73, pulse is 94 and in A. fib, respirations are 18, 90% on 2 L, temp is 98.2 oral. HEENT: Head is atraumatic, normocephalic. Pupils equal, round. Sclerae is anicteric. NECK: Supple. No JVD. No lymphadenopathy. No thyromegaly. LUNGS: Diminished breath sounds at the bases otherwise clear to auscultation. No wheezes or rhonchi. No intercostal retractions. HEART: S1 and S2 are heard, irregularly irregular, in A. fib ABDOMEN: Soft. Bowel sounds are present. No masses. Mild tenderness on deep palpation EXTREMITIES: No pedal edema. No calf tenderness. NEUROLOGICAL: Patient is awake, alert and oriented x3. Cranial nerves 2 through 12 are grossly intact. No focal deficits. SKIN: Chronic diabetic bilateral foot ulcers - Labs CBC & Chem 7: 05/01/19 05:25 05/01/19 09:55 Labs: Abnormal Lab Results - Last 24 Hours (Table) 04/30/19 04/30/19 05/01/19 Range/Units 16:44 20:14 05:25 WBC 14.1 H (3.8-10.6) k/uL RBC 3.59 L (3.80-5.40) m/uL Hgb 10.3 L (11.4-16.0) gm/dL Hct 32.6 L (34.0-46.0) % RDW 15.8 H (11.5-15.5) % Neutrophils # 12.5 H (1.3-7.7) k/uL Lymphocytes # 0.6 L (1.0-4.8) k/uL Potassium (3.5-5.1) mmol/L BUN (7-17) mg/dL Glucose (74-99) mg/dL POC Glucose (mg/dL) 334 H 199 H (75-99) mg/dL Calcium (8.4-10.2) mg/dL 05/01/19 05/01/19 Range/Units 05:25 06:57 WBC (3.8-10.6) k/uL RBC (3.80-5.40) m/uL Hgb (11.4-16.0) gm/dL Hct (34.0-46.0) % RDW (11.5-15.5) % Neutrophils # (1.3-7.7) k/uL Lymphocytes # (1.0-4.8) k/uL Potassium 3.0 L (3.5-5.1) mmol/L BUN 19 H (7-17) mg/dL Glucose 136 H (74-99) mg/dL POC Glucose (mg/dL) 128 H (75-99) mg/dL Calcium 7.9 L (8.4-10.2) mg/dL Microbiology - Last 24 Hours (Table) 04/29/19 00:51 Blood Culture - Preliminary Blood No Growth after 48 hours 04/28/19 22:14 Urine Culture - Final Urine,Catheterized Kate albicans Assessment and Plan Assessment: Septic shock: Possible source of infection being urinary tract infection, vasopressin was discontinued and norepinephrine is on hold. Continue with IV fluids at 100 mL per hour. Currently still on IV antibiotics in the form of meropenem and also on flucanazole for Kate in the urine. Infectious disease is following. -Atrial fibrillation with rapid ventricular rate patient is presently on amiodar one metoprolol is being held because of septic shock and the patient is requiring 2 pressors at this time. Patient is on Eliquis which will be continued. Atrial fibrillation was postdated by sepsis. Patient is presently rate controlled -Toxic encephalopathy and unresponsiveness secondary to sepsis and septic shock. -Coronary artery disease -Congestive heart failure chronic systolic dysfunction EF of around 35% patient is actually hypovolemic secondary to sepsis but need to be cautious with fluids type2 diabetes mellitus off of metformin and continue with sliding scale insulin. -Gastric reflux disease -Hyperlipidemia hypertension, patient is presently hypotensive for above mentioned chronic medical problems patient will be resumed on appropriate home medications. -Patient will need GI prophylaxis because of sepsis Hypokalemia, replaced: Current potassium is 3.7 Recommendations and discussion Recommend continue current medications, management, and symptomatic treatment. Patient is currently off 2 pressors and being monitored closely. Patient's blood sugars have been up and down and will be closely monitored. Continue coverage with sliding scale insulin. Family is at the bedside. Patient is a long-term resident for [facility]. Cardiology and pulmonary are following closely as well as infectious disease. Patient is currently still on IV antibiotics in the form of meropenem. Patient's potassium was replaced and is currently 3.7. Will continue to monitor vital signs and labs closely. Guarded prognosis. Further recommendations to follow.
--- NOTE | 2019-05-01 12:28 | CONS ---
CONSULTATION Mrs. Vega is an 83-year-old female who was transferred from [facility] with progressive change in mental status and was found to have a urosepsis. Cardiology consultation was requested because of atrial fibrillation. Patient has a known history of cardiomyopathy, status post ICD implantation. She is followed by nursing project coordinator in [place]. Has underwent cardiac catheterization about 2 years ago and was found to have diffuse triple-vessel disease and not amenable to any intervention. She also has a history of peripheral vascular disease and nonhealing ulcers followed by Dr. Oquendo. She has history of ICD implantation done about 2 years ago. The patient is awake, alert at this time, hard of hearing. The history is obtained from her and from her daughter. She came in with the change in mental status and was quite hypotensive and was found to have atrial fibrillation with rapid ventricular response. She is off her pressors at this time and continued to be on IV amiodarone. Her lactic acid was quite elevated on presentation. The patient denies any chest pain. According to her, breathing is stable. She is quite limited in her physical activity. She has no peripheral edema. No dizziness, palpitation or recent syncope. Her coronary risk factors are positive for a history of diabetes, hypertension. She is a nonsmoker. MEDICATIONS: Her medications include midodrine, potassium, magnesium, metoprolol tartrate 50 mg twice a day, metformin, aspirin, Eliquis 5 mg twice a day, Lasix 20 mg twice a day, Prinivil 20 mg daily, Zoloft, pentoxifylline, insulin, gabapentin, magnesium. REVIEW OF SYSTEMS: RESPIRATORY SYSTEM: She has no recent wheezing. No cough. No documented obstructive lung disease. GI SYSTEM: She felt nauseated, but no vomiting. No GI bleeding. SYSTEM: She had evidence of urinary tract infection. NERVOUS SYSTEM. No documented history of stroke or seizure. PHYSICAL EXAMINATION: She is an 83-year-old female, alert, hard of hearing, no apparent distress. Blood pressure 108/60 with the heart rate in the 100s. HEAD: Normocephalic. EYES: Sclerae anicteric. NECK: No bruit. LUNGS: With mild decrease in breath sounds, no wheezes. HEART: Irregular, irregular, S1, S2. No S3 with systolic murmur at the base 2/6. No diastolic murmur, no rub. ABDOMEN: Soft, obese, nontender. EXTREMITIES: Dressing in place. Decreased distal pulses. LAB DATA: Lab data revealed a white blood cell 14.1, hemoglobin of 10.3. BUN and creatinine 19 and 0.53. Her potassium has been replaced and is up to 3.7. She had leukocytosis up to 48.5. Her EKG is consistent with atrial fibrillation with nonspecific ST-T wave changes and a rate of 139. Her chest x-ray shows cardiomegaly with mild congestion. IMPRESSION: 1. Urinary tract infection with sepsis, improving. Patient is on antibiotics. She has been followed by Dr. Choe. She had septic shock on presentation. 2. Atrial fibrillation, anticoagulated with episode of rapid ventricular response. 3. History of cardiomyopathy, status post ICD implant. 4. History of severe coronary artery disease, not amenable to revascularization. 5. Diabetic foot ulcer. 6. History of hypertension. 7. Prior history of chronic pancreatitis with prior ERCP intervention. RECOMMENDATION: From the cardiac standpoint, I will stop the IV Cardizem. I will switch her to oral Cardizem I will re-initiate the beta sandra at low dose. I will initiate treatment with a statin. Continue rest of medical regimen. Depending on her progress, further recommendation will be made. I will repeat the echocardiogram to re-evaluate the left ventricular systolic function. Once her blood pressure is stabilized, then the GABI inhibitor will be re-initiated. Thank you for this consult. We will follow with you. MMJOSIAHL / IJN: [id number] /
--- NOTE | 2019-05-01 12:53 | P.PN ---
Subjective Progress Note Date: 05/01/19 Principal diagnosis: Septic shock secondary to urinary tract infection This is an 83-year-old female patient with multiple medical problems and comorbidities was [facility] because of altered mentation. The patient developed progressive worsening in her level of consciousness and [facility] facility. The patient was transferred to the hospital upon the request of the family. The patient apparently had some nausea and emesis prior to her coming to the hospital. Despite her altered mentation and diminished level of consciousness, she continued to move all 4 extremities. In the ED, the patient was found to be hypotensive with a systolic blood pressure in the mid 40s. The patient was found to be in atrial fibrillation with rapid ventricular response a nd the patient is known to have long-term atrial fibrillation and the patient has been on long-term and to coagulation with Eliquis. Noted the patient has congestion heart failure and the patient has an AICD in place. The patient has also severe peripheral vascular disease and the patient has diabetic foot ulcers lower extremities bilaterally at the level of the first metatarsal joint medially and this is a stage IV ulcer with draining material and previous cultures have indicated growth with pseudomonas aeruginosa, Enterobacter and stenotrophomonas. Furthermore, the patient has had previous UTIs and on 01/23/2019 urine culture was positive for pseudomonas aeruginosa and E. coli. Note that the pseudomonas was an ESBL producing organism.During this current admission, the patient got transferred to the intensive care unit. Initially there was the idea of making her hospice. Later on the family changes their mind and he wanted resuscitation. Based on this, the patient was given IV fluids and immediately 2 L was infused. She was started on pressors. Urine was obtained after a Saldivar catheter insertion and the urine was quite cloudy and dirty and purulent. The UA was consistent with infection and it included yeast. Based on this, a combination of meropenem and Diflucan was started. This morning, the patient is still in a shock state. Lactic acid is gradually climbed up from a baseline of 6.1 up to 12.6. The patient has become progressively more hypotensive. The patient become pressor dependent and norepinephrine infusion is running at 30 mcg/m. The patient also has nearly absent urine output at this point in time. Extremities are extremely cold and clammy. In fact no palpable pulses in the feet bilaterally. Posterior tibialis pulses can be obtained only by Doppler signal. No dorsalis pedis with Doppler significant and the legs bilaterally. The white cell count on today's evaluation up to 47. Despite all this, she is able to answer some simple questions. Atelectatic discussion with the daughter the bedside. We have decided to more resuscitation. Note that the chest x-ray in the emergency showed some CHF findings. CAT scan of the abdomen and pelvis showed trace fluid in the lung bases along with some compressive atelectasis in the lung bases. No other abnormalities were noted. She remains in atrial fibrillation. Amiodarone is still running at a maintenance 0.5 mg per minute to control heart rate. Patient was reevaluated today on 04/30/2019, remains in the ICU, she remains on 1.5 mcg/m of norepinephrine, and 0.03 units of vasopressin for low blood pressure. Patient is asymptomatic, she is resting in bed, does not seem to be in any form of distress. Remains on broad-spectrum antibiotics coverage for her urinary tract infection, and infectious disease consultation was initiated. She is receiving Merrem and she is back on her usual cardiac meds including amiodarone and Eliquis. Patient will likely need a PICC line, hence I will arrange for one to be done today, otherwise I would have to place a central line. Urine culture is positive for Kate, blood cultures are negative so far. CBC showed leukocytosis with WBC count of 20.4, hemoglobin of 10.8. Electrolytes and renal profile are normal. Lactic acid today is 2.2. Reevaluated today on 05/01/2019, remains in the ICU, she is presently off norepinephrine, off vasopressin, maintained on amiodarone which will be discontinued hopefully today. Patient is doing much better compared to yesterday, remains on antibiotics for presumptive sepsis and septic shock secondary to urinary tract infection. Patient is currently on 2 L/m via nasal cannula of oxygen. O2 saturation is in the low 90s. Denies any shortness of breath, no cough, no wheezing, no nausea, no abdominal discomfort. Cardiology will address her amiodarone drip. She is now in atrial fibrillation with irregular rate in the range of 120. Labs were reviewed potassium is low being corrected as per protocol. Renal profile is normal. Hemoglobin is 10.3. Blood cultures remain negative and the last 48 hours. Objective - Vital Signs Vital signs: Vital Signs Temp 98.2 F 05/01/19 08:00 Pulse 124 H 05/01/19 11:00 Resp 24 05/01/19 11:00 BP 108/68 05/01/19 11:00 Pulse Ox 90 L 05/01/19 11:00 Intake & Output 04/30/19 05/01/19 05/01/19 18:59 06:59 18:59 Intake Total 7692.186 6098.177 950 Output Total 1100 1700 223 Balance 654.640 -263.823 727 Weight 73.5 kg Intake: IV 1100 1300 800 .9 50 ml/hour 100 Meropenem 1 gm In Sodium 100 100 Chloride 0.9% 100 ml @ 200 mls/hr IVPB Q12H KEVEN Rx#:[id number] Potassium Chloride 20 meq 300 In Water For Injection 1 100ml.bag @ 50 mls/hr IVPB Q2H [facility] Rx#: [id number] Sodium Chloride 0.9% 1, 1000 1200 400 000 ml @ 100 mls/hr IV . Q10H [facility] Rx#:[id number] Intake, IV Titration 534.640 136.177 150 Amount Amiodarone 300 mg In 250 Dextrose 5% in Water 250 ml @ 0.5 MG/MIN 25 mls/hr IV .Q10H [facility] Rx#: [id number] Amiodarone 300 mg In 75 25 Dextrose 5% in Water 250 ml @ 0.5 MG/MIN 25 mls/hr IV .Q10H [facility] Rx#: [id number] Fluconazole in NaCl,Iso- 50 Osm 100 mg In Saline 1 50ml.bag @ 50 mls/hr IVPB DAILY [facility] Rx#:[id number] Fluconazole in NaCl,Iso- 100 Osm 200 mg In Saline 1 100ml.bag @ 100 mls/hr IVPB DAILY [facility]EVEN Rx#: [id number] Meropenem 1 gm In Sodium 100 Chloride 0.9% 100 ml @ 200 mls/hr IVPB Q12H [facility] Rx#:[id number] Norepinephrine 4 mg In 109.640 111.177 0 Sodium Chloride 0.9% 250 ml @ 0.23 MCG/KG/MIN 58. 828 mls/hr IV .Q4H20M [facility]EVEN Rx#:[id number] Oral 120 Output: Urine 1100 1700 223 Other: Voiding Method Indwelling Catheter Indwelling Catheter Indwelling Catheter # Bowel Movements 2 2 1 - Exam Physical Exam: Revealed 83-year-old female in no distress. On 2 L nasal cannula. Head: Atraumatic, normocephalic. HEENT:[Neck is supple.] [No neck masses.] [No thyromegaly.] [No JVD.] PERRLA, EOMI, no icterus. Chest: [Symmetrical chest expansion, minimal crackles at the bases, no rhonchi and no wheezes. Cardiac Exam: Irregular irregular rhythm. [Normal S1 and S2, no S3 gallop, no murmur.] Abdomen: [Soft, nontender, no megaly, no rebound, no guarding, normal bowel sounds.] Extremities: [No clubbing, 1+ bipedal edema, no cyanosis, multiple foot ulcers were noted, wrapped with sterile dressing, been evaluated in the past by vascular surgery and infectious disease for her ulcers. Neurological Exam: Alert and oriented 3. [No focal neurologic deficit.] Psychiatric: Normal mood, affect and normal mental status examination. Musculoskeletal: Generally weak, no gross focal deficit. - Labs CBC & Chem 7: 05/01/19 05:25 05/01/19 09:55 Labs: Abnormal Lab Results - Last 24 Hours (Table) 04/30/19 04/30/19 05/01/19 Range/Units 16:44 20:14 05:25 WBC 14.1 H (3.8-10.6) k/uL RBC 3.59 L (3.80-5.40) m/uL Hgb 10.3 L (11.4-16.0) gm/dL Hct 32.6 L (34.0-46.0) % RDW 15.8 H (11.5-15.5) % Neutrophils # 12.5 H (1.3-7.7) k/uL Lymphocytes # 0.6 L (1.0-4.8) k/uL Potassium (3.5-5.1) mmol/L BUN (7-17) mg/dL Glucose (74-99) mg/dL POC Glucose (mg/dL) 334 H 199 H (75-99) mg/dL Calcium (8.4-10.2) mg/dL 05/01/19 05/01/19 05/01/19 Range/Units 05:25 06:57 11:32 WBC (3.8-10.6) k/uL RBC (3.80-5.40) m/uL Hgb (11.4-16.0) gm/dL Hct (34.0-46.0) % RDW (11.5-15.5) % Neutrophils # (1.3-7.7) k/uL Lymphocytes # (1.0-4.8) k/uL Potassium 3.0 L (3.5-5.1) mmol/L BUN 19 H (7-17) mg/dL Glucose 136 H (74-99) mg/dL POC Glucose (mg/dL) 128 H 357 H (75-99) mg/dL Calcium 7.9 L (8.4-10.2) mg/dL Microbiology - Last 24 Hours (Table) 04/29/19 00:51 Blood Culture - Preliminary Blood No Growth after 48 hours 04/28/19 22:14 Urine Culture - Final Urine,Catheterized Kate albicans Assessment and Plan Assessment: Impression: 1 septic shock secondary to urinary tract infection, felt to be most likely ESBL producing pseudomonas and E. coli unless proven otherwise 2 acute lactic acidosis secondary to sepsis and septic shock 3 acute kidney injury secondary to sepsis and septic shock 4 multiple comorbidities including atrial fibrillation LV dysfunction ejection fraction of 35% and previous AICD placement, underlying coronary artery disease, type 2 diabetes, diabetic foot ulcers, history of hypertension, history of cervical cancer, history of diverticular disease, history of chronic pancreatitis, severe peripheral vessel occlusive disease involving lower extremities, and medical debility. Recommendation: Continue antibiotics Switch IV amiodarone to oral amiodarone Continue GI and DVT prophylaxis Discontinued pressors patient is hemodynamically stable at present off pressors Continue insulin as per protocol Incentive spirometry We'll continue to monitor in the ICU for the next 24 hours. And will follow Time with Patient: Less than 30
[2019-05-01] MEDS: AMIODARONE 200 MG TAB PO SCH ×2 (13:29→20:54)
[2019-05-01] MEDS: METOPROLOL TARTRATE 25 MG TAB PO SCH ×2 (13:32→20:54)
[2019-05-01 16:56] LABS: Glucose,Whole Blood 184 mg/dL (75-99)
--- NOTE | 2019-05-01 17:00 | ECHOF ---
Referral Reason:cm MEASUREMENTS -------- HEIGHT: 157.5 cm WEIGHT: 73.5 kg BP: 102/81 RVIDd: 3.7 cm (< 3.3) IVSd: 1.3 cm (0.6 - 1.1) LVIDd: 3.2 cm (3.9 - 5.3) LVPWd: 1.3 cm (0.6 - 1.1) IVSs: 1.6 cm LVIDs: 3.1 cm LVPWs: 1.1 cm LA Diam: 5.0 cm (2.7 - 3.8) LAESV Index (A-L): 56.63 ml/m Ao Diam: 3.3 cm (2.0 - 3.7) AV Cusp: 1.2 cm (1.5 - 2.6) LA Diam: 3.8 cm (2.7 - 3.8) MV EXCURSION: 13.644 mm (> 18.000) MV EF SLOPE: 62 mm/s (70 - 150) EPSS: 2.0 cm MV E Geovani: 0.79 m/s MV DecT: 157 ms MV A Geovani: 0.32 m/s MV E/A Ratio: 2.42 AV maxP.77 mmHg AV meanP.11 mmHg RAP: 5.00 mmHg RVSP: 41.17 mmHg FINDINGS -------- Atrial fibrillation. Paced rhythm. This was a technically adequate study. The left ventricular size is normal. There is mild concentric left ventricular hypertrophy. Overa ll left ventricular systolic function is moderate-severely impaired with, an EF between 30 - 35 %. The right ventricle is mildly enlarged. The left atrium is markedly dilated. LA is severely dilated >40 ml/m2 The right atrial size is normal. There is mild aortic stenosis present. Peak/mean gradient across the Aortic Valve is 16.77mmHg / 9. 11mmHg. Mild mitral annular calcification present. Moderate mitral regurgitation is present. Mild tricuspid regurgitation present. There is mild pulmonary hypertension. The right ventricular systolic pressure, as measured by Doppler, is 41.17mmHg. There is no pulmonic regurgitation present. The aortic root size is normal. There is no pericardial effusion. CONCLUSIONS -------- 1. Atrial fibrillation. 2. Paced rhythm. 3. This was a technically adequate study. 4. The left ventricular size is normal. 5. There is mild concentric left ventricular hypertrophy. 6. Overall left ventricular systolic function is moderate-severely impaired with, an EF between 30 - 35 %. 7. The right ventricle is mildly enlarged. 8. The left atrium is markedly dilated. 9. LA is severely dilated >40 ml/m2 10. The right atrial size is normal. 11. There is mild aortic stenosis present. 12. Peak/mean gradient across the Aortic Valve is 16.77mmHg / 9.11mmHg. 13. Mild mitral annular calcification present. 14. Moderate mitral regurgitation is present. 15. Mild tricuspid regurgitation present. 16. There is mild pulmonary hypertension. 17. The right ventricular systolic pressure, as measured by Doppler, is 41.17mmHg. 18. There is no pulmonic regurgitation present. 19. The aortic root size is normal. 20. There is no pericardial effusion. ELEMENTARY READING TUTOR: Crystal Diggs RDCS
[2019-05-01] MEDS: THIAMINE 100 MG TAB PO SCH (17:40)
--- NOTE | 2019-05-01 19:53 | PN ---
PROGRESS NOTE DATE OF SERVICE: 05/01/2019 REASON FOR FOLLOWUP: 1. Bilateral diabetic foot wounds. 2. UTI with sepsis. INTERVAL HISTORY: The patient is currently afebrile. The patient is hemodynamically stable. The patient is currently off the pressor support. Denies having any chest pain or cough. No abdominal pain or any diarrhea or any worsening pain to the right foot area. PHYSICAL EXAMINATION: Blood pressure 105/52 with a pulse of 77, temperature 98.7. She is 91% on 2 L nasal cannula. General description is an elderly female lying in bed in no distress. RESPIRATORY SYSTEM: Unlabored breathing. Clear to auscultation anteriorly. HEART: S1, S2. Regular rate and rhythm. ABDOMEN: Soft. No tenderness. Bilateral foot wounds currently dressed up. RN mentioned the patient did have a stage II pressure ulcer on the sacral area with no slough or cellulitis. LABS: Hemoglobin 10.3, white count down to 14.1. BUN of 19, creatinine 0.53. DIAGNOSTIC IMPRESSION AND PLAN: 1. Patient admitted to hospital with sepsis, concern for a urinary tract infection. Initial culture showing Kate albicans. Patient is currently covered with Diflucan. 2. Bilateral diabetic foot wounds with no cellulitis. Local wound care with Medihoney. 3. Stage II sacral wound. Local wound care with Aquacel Silver dressing. Keep the area off pressure. MMODL / IJN: [id number] /
[2019-05-01 20:52] LABS: Glucose,Whole Blood 168 mg/dL (75-99)
[2019-05-01] MEDS ORDERED: HYDROcodone/APAP 5-325MG 1 EACH TAB PO STA (21:18)
[2019-05-02] MEDS ORDERED: SODIUM CHLORIDE 0.9% 500 ML 500 ML IV ONE (00:01)
[2019-05-02] MEDS: MEROPENEM 1 GM in SODIUM CHLORIDE 0.9% 100 ML IVPB SCH ×3 (00:04→23:19)
[2019-05-02] MEDS: NOREPINEPHRINE 4 MG in SODIUM CHLORIDE 0.9% 250 ML IV SCH ×5 (02:05→23:10)
[2019-05-02] MEDS ORDERED: FUROSEMIDE 10 MG/ML 2 ML VIAL IV ONE (02:05)
[2019-05-02 05:08] LABS: African American GFR (CKD) >90 (>60 ml/min/1.73 sqM); Anion Gap 6 mmol/L; Blood Urea Nitrogen 17 mg/dL (7-17); Calcium 7.8 mg/dL (8.4-10.2); Carbon Dioxide 23 mmol/L (22-30); Chloride 107 mmol/L (98-107); Glucose 89 mg/dL (74-99); Potassium 3.6 mmol/L (3.5-5.1); Sodium 136 mmol/L (137-145)
[2019-05-02] MEDS: SODIUM CHLORIDE 0.9% 1,000 ML IV SCH ×3 (05:57→23:45)
[2019-05-02] MEDS: SODIUM CHLORIDE 0.9% 50 ML with VASOPRESSIN 20 UNIT IVPB SCH ×4 (05:58→17:56)
[2019-05-02 06:57] LABS: Glucose,Whole Blood 88 mg/dL (75-99)
[2019-05-02] MEDS: INSULIN ASPART (NovoLOG) 100 UNIT/ML VIAL SQ SCH ×4 (07:09→21:45)
[2019-05-02] MEDS ORDERED: Phosphorus Replacement Protoco 1 EACH MISC MISCELLANE PRN (07:34)
--- NOTE | 2019-05-02 07:48 | PN ---
PROGRESS NOTE Mrs. Vega is an 83-year-old female who presented with sepsis and was in the ICU for fluid resuscitation. She is feeling well this morning. She is denying any symptoms of chest discomfort. Her breathing is stable. She denies any dizziness or palpitation. She has a known history of chronic persistent atrial fibrillation, history of severe cardiomyopathy, status post ICD implant as well as a history of coronary disease that is not amenable to revascularization. Her medical regimen was adjusted yesterday and she continues to be at this time on amiodarone 400 mg twice a day, Eliquis 5 mg twice a day, aspirin 81 mg daily, Lipitor 40 mg daily and metoprolol tartrate 25 mg twice a day. PHYSICAL EXAMINATION: Blood pressure 113/90 with the heart rate in the 80s. LUNGS: Clear. HEART: Irregular, irregular. S1, S2. No S3 with systolic murmur. No diastolic murmur. No rub. ABDOMEN: Soft, obese, nontender. EXTREMITIES: Dressing in place with chronic stasis changes. LAB DATA: Lab data revealed BUN and creatinine of 17 and 0.42, potassium 3.6. IMPRESSION: 1. Urosepsis, being treated. Hemodynamically stable. Septic shock resolved at this point. 2. History of atrial fibrillation, persistent and anticoagulated, rate controlled. 3. History of severe cardiomyopathy, status post ICD implantation. Her echocardiogram showed a severely impaired left ventricular systolic function. 4. History of coronary artery disease. 5. History of peripheral vascular disease. RECOMMENDATION: From the cardiac standpoint, I will cut down the dose of the amiodarone to 200 mg twice a day. I will add an GABI inhibitor to her regimen. Continue to increase her activity gradually. Follow her blood pressure and heart rate and depending on her progress, further recommendation will be made. MMODL / IJN: [id number] /
[2019-05-02] MEDS ORDERED: POTASSIUM CHLORIDE ER 20 MEQ TAB.ER PO SCH (08:00)
[2019-05-02 08:19] LABS: Basophils % (A) 0 %; Eosinophils # (A) 0.3 k/uL (0-0.7); Eosinophils % (A) 3 %; HCT 35.3 % (34.0-46.0); HGB 11.2 gm/dL (11.4-16.0); Hypochromasia Slight; Lymphocytes # (A) 0.9 k/uL (1.0-4.8); Lymphocytes % (A) 10 %; MCH 29.2 pg (25.0-35.0); MCHC 31.7 g/dL (31.0-37.0); Mean Platelet Volume 7.1; Monocytes # (A) 0.4 k/uL (0-1.0); Monocytes % (A) 4 %; Neutrophils # (A) 7.5 k/uL (1.3-7.7); Neutrophils % (A) 83 %; Platelet Count 234 k/uL (150-450); RBC 3.84 m/uL (3.80-5.40)
[2019-05-02] MEDS: ASPIRIN 81 MG PO SCH (09:47)
[2019-05-02] MEDS: LISINOPRIL 2.5 MG TAB PO SCH ×2 (09:47→21:12)
[2019-05-02] MEDS: DOCUSATE 100 MG CAP PO SCH ×2 (09:47→16:18)
[2019-05-02] MEDS: OXYBUTYNIN 10 MG TAB.ER.24 PO SCH (09:47)
[2019-05-02] MEDS: ATORVASTATIN 40 MG TAB PO SCH (09:47)
[2019-05-02] MEDS: METOPROLOL TARTRATE 25 MG TAB PO SCH ×2 (09:47→21:12)
[2019-05-02] MEDS: SERTRALINE 25 MG TAB PO SCH (09:48)
[2019-05-02] MEDS: AMIODARONE 200 MG TAB PO SCH ×2 (09:48→21:11)
[2019-05-02] MEDS: URSODIOL 300 MG CAP PO SCH ×2 (09:48→21:12)
[2019-05-02] MEDS: APIXABAN 5 MG TAB PO SCH ×2 (09:48→21:11)
[2019-05-02] MEDS: FLUCONAZOLE IN NACL,ISO-OSM 100 MG in SALINE 1 50ML.BAG IVPB SCH (09:48)
[2019-05-02] MEDS: SIMETHICONE 80 MG CHEWABLE PO SCH ×3 (09:48→16:18)
[2019-05-02] MEDS: SPIRONOLACTONE 25 MG TAB PO SCH (09:48)
[2019-05-02] MEDS: PENTOXIFYLLINE 400 MG TABLET.ER PO SCH ×3 (09:48→16:18)
[2019-05-02] MEDS: PANTOPRAZOLE 40 MG/10 ML VIAL IV SCH (09:49)
[2019-05-02] MEDS: MAGNESIUM SULFATE-D5W PMX 1 GM in DEXTROSE/WATER 1 100ML.BAG IVPB SCH ×3 (10:03→16:17)
[2019-05-02 12:07] LABS: Glucose,Whole Blood 225 mg/dL (75-99)
--- NOTE | 2019-05-02 12:16 | P.PN ---
Subjective Progress Note Date: 05/02/19 Principal diagnosis: Septic shock secondary to urinary tract infection This is an 83-year-old female patient with multiple medical problems and comorbidities was transferred from detention because of altered mentation. The patient developed progressive worsening in her level of consciousness and [facility] facility. The patient was transferred to the hospital upon the request of the family. The patient apparently had some nausea and emesis prior to her coming to the hospital. Despite her altered mentation and diminished level of consciousness, she continued to move all 4 extremities. In the ED, the patient was found to be hypotensive with a systolic blood pressure in the mid 40s. The patient was found to be in atrial fibrillation with rapid ventricular response a nd the patient is known to have long-term atrial fibrillation and the patient has been on long-term and to coagulation with Eliquis. Noted the patient has congestion heart failure and the patient has an AICD in place. The patient has also severe peripheral vascular disease and the patient has diabetic foot ulcers lower extremities bilaterally at the level of the first metatarsal joint medially and this is a stage IV ulcer with draining material and previous cultures have indicated growth with pseudomonas aeruginosa, Enterobacter and stenotrophomonas. Furthermore, the patient has had previous UTIs and on 01/23/2019 urine culture was positive for pseudomonas aeruginosa and E. coli. Note that the pseudomonas was an ESBL producing organism.During this current admission, the patient got transferred to the intensive care unit. Initially there was the idea of making her hospice. Later on the family changes their mind and he wanted resuscitation. Based on this, the patient was given IV fluids and immediately 2 L was infused. She was started on pressors. Urine was obtained after a Saldivar catheter insertion and the urine was quite cloudy and dirty and purulent. The UA was consistent with infection and it included yeast. Based on this, a combination of meropenem and Diflucan was started. This morning, the patient is still in a shock state. Lactic acid is gradually climbed up from a baseline of 6.1 up to 12.6. The patient has become progressively more hypotensive. The patient become pressor dependent and norepinephrine infusion is running at 30 mcg/m. The patient also has nearly absent urine output at this point in time. Extremities are extremely cold and clammy. In fact no palpable pulses in the feet bilaterally. Posterior tibialis pulses can be obtained only by Doppler signal. No dorsalis pedis with Doppler significant and the legs bilaterally. The white cell count on today's evaluation up to 47. Despite all this, she is able to answer some simple questions. Atelectatic discussion with the daughter the bedside. We have decided to more resuscitation. Note that the chest x-ray in the emergency showed some CHF findings. CAT scan of the abdomen and pelvis showed trace fluid in the lung bases along with some compressive atelectasis in the lung bases. No other abnormalities were noted. She remains in atrial fibrillation. Amiodarone is still running at a maintenance 0.5 mg per minute to control heart rate. Patient was reevaluated today on 04/30/2019, remains in the ICU, she remains on 1.5 mcg/m of norepinephrine, and 0.03 units of vasopressin for low blood pressure. Patient is asymptomatic, she is resting in bed, does not seem to be in any form of distress. Remains on broad-spectrum antibiotics coverage for her urinary tract infection, and infectious disease consultation was initiated. She is receiving Merrem and she is back on her usual cardiac meds including amiodarone and Eliquis. Patient will likely need a PICC line, hence I will arrange for one to be done today, otherwise I would have to place a central line. Urine culture is positive for Kate, blood cultures are negative so far. CBC showed leukocytosis with WBC count of 20.4, hemoglobin of 10.8. Electrolytes and renal profile are normal. Lactic acid today is 2.2. Reevaluated today on 05/01/2019, remains in the ICU, she is presently off norepinephrine, off vasopressin, maintained on amiodarone which will be discontinued hopefully today. Patient is doing much better compared to yesterday, remains on antibiotics for presumptive sepsis and septic shock secondary to urinary tract infection. Patient is currently on 2 L/m via nasal cannula of oxygen. O2 saturation is in the low 90s. Denies any shortness of breath, no cough, no wheezing, no nausea, no abdominal discomfort. Cardiology will address her amiodarone drip. She is now in atrial fibrillation with irregular rate in the range of 120. Labs were reviewed potassium is low being corrected as per protocol. Renal profile is normal. Hemoglobin is 10.3. Blood cultures remain negative and the last 48 hours. Reevaluated today on 05/02/2019, patient remains hemodynamically stable, she had slightly drops in her blood pressure last night, but responded well to fluid boluses. Remains off vasopressors. Patient is on oral amiodarone, she is in atrial fibrillation, but rate seems to be fairly well controlled. Patient denies any specific complaints. Denies any shortness of breath no cough no wh eezing. Remains on antibiotics for her urinary tract infection, and she is followed by infectious disease on the case. Could have considered transferring the patient out of the ICU today except for her intermittent episodes of hypotension. Renal status is normal, and she has a good urine output. Objective - Vital Signs Vital signs: Vital Signs Temp 98.2 F 05/02/19 04:00 Pulse 82 05/02/19 07:00 Resp 20 05/02/19 07:00 BP 113/92 05/02/19 07:00 Pulse Ox 97 05/02/19 07:00 Intake & Output 05/01/19 05/02/19 05/02/19 18:59 06:59 18:59 Intake Total 1250 600 50 Output Total 428 1105 60 Balance 822 -505 -10 Weight 75.5 kg 75.5 kg Intake: IV 1100 600 50 .9 50 ml/hour 400 600 50 Potassium Chloride 20 meq 300 In Water For Injection 1 100ml.bag @ 50 mls/hr IVPB Q2H KEVEN Rx#: [id number] Sodium Chloride 0.9% 1, 400 000 ml @ 100 mls/hr IV . Q10H [facility]EVEN Rx#:[id number] Intake, IV Titration 150 Amount Fluconazole in NaCl,Iso- 50 Osm 100 mg In Saline 1 50ml.bag @ 50 mls/hr IVPB DAILY KEVEN Rx#:[id number] Meropenem 1 gm In Sodium 100 Chloride 0.9% 100 ml @ 200 mls/hr IVPB Q12H [facility]EVEN Rx#:[id number] Norepinephrine 4 mg In 0 Sodium Chloride 0.9% 250 ml @ 0.23 MCG/KG/MIN 58. 828 mls/hr IV .Q4H20M KEVEN Rx#:[id number] Output: Urine 428 1105 60 Other: Voiding Method Indwelling Catheter Indwelling Catheter # Bowel Movements 1 1 - Exam Physical Exam: Revealed 83-year-old female in no distress. Pleasant, asymptomatic. Head: Atraumatic, normocephalic. HEENT:[Neck is supple.] [No neck masses.] [No thyromegaly.] [No JVD.] PERRLA, EOMI, no icterus. Chest: [Symmetrical chest expansion, no crackles or rhonchi or wheezes Cardiac Exam: Irregular irregular rhythm. [Normal S1 and S2, no S3 gallop, no murmur.] Abdomen: [Soft, nontender, no megaly, no rebound, no guarding, normal bowel sounds.] Extremities: [No clubbing, 1+ bipedal edema, no cyanosis, multiple foot ulcers were noted, wrapped with sterile dressing, been evaluated in the past by vascular surgery and infectious disease for her ulcers. Neurological Exam: Alert and oriented 3. [No focal neurologic deficit.] Psychiatric: Normal mood, affect and normal mental status examination. Musculoskeletal: Generally weak, no gross focal deficit. - Labs CBC & Chem 7: 05/02/19 08:03 05/02/19 04:38 Labs: Abnormal Lab Results - Last 24 Hours (Table) 05/01/19 05/01/19 05/02/19 Range/Units 16:53 20:48 04:38 Hgb (11.4-16.0) gm/dL RDW (11.5-15.5) % Lymphocytes # (1.0-4.8) k/uL Sodium 136 L (137-145) mmol/L Creatinine 0.42 L (0.52-1.04) mg/dL POC Glucose (mg/dL) 184 H 168 H (75-99) mg/dL Calcium 7.8 L (8.4-10.2) mg/dL Magnesium (1.6-2.3) mg/dL 05/02/19 05/02/19 05/02/19 Range/Units 08:03 08:03 12:04 Hgb 11.2 L (11.4-16.0) gm/dL RDW 16.0 H (11.5-15.5) % Lymphocytes # 0.9 L (1.0-4.8) k/uL Sodium (137-145) mmol/L Creatinine (0.52-1.04) mg/dL POC Glucose (mg/dL) 225 H (75-99) mg/dL Calcium (8.4-10.2) mg/dL Magnesium 1.4 L (1.6-2.3) mg/dL Microbiology - Last 24 Hours (Table) 04/29/19 00:51 Blood Culture - Preliminary Blood No Growth after 72 hours Assessment and Plan Assessment: Impression: 1 septic shock secondary to urinary tract infection, felt to be most likely ESBL producing pseudomonas and E. coli unless proven otherwise 2 acute lactic acidosis secondary to sepsis and septic shock 3 acute kidney injury secondary to sepsis and septic shock 4 multiple comorbidities including atrial fibrillation LV dysfunction ejection fraction of 35% and previous AICD placement, underlying coronary artery disease, type 2 diabetes, diabetic foot ulcers, history of hypertension, history of cervical cancer, history of diverticular disease, history of chronic pancreatitis, severe peripheral vessel occlusive disease involving lower extremities, and medical debility. Recommendation: Continue antibiotics Continue oral amiodarone. Fluid boluses as needed and increase IV fluid maintenance. Continue GI and DVT prophylaxis Continue insulin as per protocol Incentive spirometry Could consider transferring the patient out of the ICU later today if her blood pressure remains stable. We'll continue to follow Time with Patient: Less than 30
[2019-05-02] MEDS: ACETAMINOPHEN TAB 325 MG TAB PO PRN (12:28)
[2019-05-02] MEDS: THIAMINE 100 MG TAB PO SCH (16:18)
--- NOTE | 2019-05-02 16:33 | PN ---
PROGRESS NOTE DATE OF SERVICE: 05/02/2019 REASON FOR FOLLOWUP: 1. Diabetic foot wounds bilaterally. 2. Stage II sacral wound. 3. UTI. INTERVAL HISTORY: The patient is currently afebrile. The patient is awake and alert. She is hemodynamically stable, not requiring any pressor support. No chest pain. Some shortness of breath. Denies any abdominal pain or any diarrhea. PHYSICAL EXAMINATION: Blood pressure 106/78 with a pulse of 67, temperature 98.2. She is 95% on room air. General description is an elderly female lying in bed in no distress. RESPIRATORY SYSTEM: Unlabored breathing. Clear to auscultation anteriorly. HEART: S1, S2. Regular rate and rhythm. ABDOMEN: Soft. No tenderness. Bilateral foot wounds are currently dressed up. No obvious drainage on the dressing. LABS: Hemoglobin is 11.2, white count of 9.0, BUN of 17, creatinine 0.42. Urine with Kate albicans. Blood cultures have been negative. DIAGNOSTIC IMPRESSION AND PLAN: 1. Patient admitted to hospital with sepsis. Source is likely urinary. The patient did have significantly positive UA. Urine has been finalized with Kate albicans. Currently covered with Diflucan. Meropenem can be safely discontinued. 2. Patient with stage II pressure ulcer on the sacrum area. Local wound care with dry Aquacel Silver dressing. 3. Bilateral diabetic foot wounds. Local wound care with Medihoney. Keep the area off pressure. Continue with supportive care. Daughter at the bedside. Questions were answered. MMODL / IJN: [id number] /
--- NOTE | 2019-05-02 17:03 | P.PN ---
Subjective Progress Note Date: 05/02/19 Principal diagnosis: 82-year-old pleasant female was admitted with septic shock most probably because of urinary tract infection patient did have symptoms of UTI before admission was actually found unresponsive doing much better with lactic acid has come down to 2.4 patient vasopressin will be discontinued patient will be continued on nor epinephrine. Urine cultures were positive for Kate urine output improved patient creatinine Around 2.9 because of which I'm increasing her dose of meropenem infectious disease was consulted patient has bilateral leg wounds will need local wound care and probably not the source of infection. Constitutional: Denied any fatigue denied any fever. Cardio vascular: denied any chest pain, palpitations Gastrointestinal denied any nausea vomiting Pulmonary: Denied any shortness of breath cough Neurologic denied any new focal deficits 05/01/2019 This is an 82-year-old female who is currently in the ICU and being closely monitored. Patient is sitting up in the bed in no acute distress with daughter at the bedside. Patient is currently on 2 L of oxygen via nasal cannula and normally is not O2 dependent at [facility]. Oxygen saturations have been in the high 80s to low 90s. Patient denies any shortness of breath or chest pain at th is time. Patient is having a little bit of abdominal discomfort in the mid epigastric region. Patient states that she is eating small amounts and denies any nausea or vomiting at this time. Patient is afebrile. Patient is having some low blood pressure readings but per the patient and family member this is normal for her. Patient was currently on an amiodarone drip and being closely monitored. Awaiting cardiology recommendations. Patient does have a Saldivar catheter in place and is draining clear yellow urine. 05/02/2019 Patient is still being closely monitored in the ICU for periods of hypotension that responded with gentle fluid boluses. Patient is currently eating followed by cardiology as well and on oral amiodarone. Infectious disease is following the patient as well. Patient is afebrile. Patient is denying any shortness of breath, chest pain or palpitations at this time. Patient denies any nausea or vomiting. Patient is currently still on 2 L of oxygen via nasal cannula. Guarded prognosis Objective - Vital Signs Vital signs: Vital Signs Temp 98.2 F 05/02/19 04:00 Pulse 82 05/02/19 07:00 Resp 20 05/02/19 07:00 BP 113/92 05/02/19 07:00 Pulse Ox 97 05/02/19 07:00 Intake & Output 05/01/19 05/02/19 05/02/19 18:59 06:59 18:59 Intake Total 1250 600 133.125 Output Total 428 1105 60 Balance 822 -505 73.125 Weight 75.5 kg 75.5 kg Intake: IV 1100 600 50 .9 50 ml/hour 400 600 50 Potassium Chloride 20 meq 300 In Water For Injection 1 100ml.bag @ 50 mls/hr IVPB Q2H [facility]EN Rx#: [id number] Sodium Chloride 0.9% 1, 400 000 ml @ 100 mls/hr IV . Q10H KEVEN Rx#:[id number] Intake, IV Titration 150 83.125 Amount Fluconazole in NaCl,Iso- 50 Osm 100 mg In Saline 1 50ml.bag @ 50 mls/hr IVPB DAILY [facility]EVEN Rx#:[id number] Meropenem 1 gm In Sodium 100 Chloride 0.9% 100 ml @ 200 mls/hr IVPB Q12H [facility]EVEN Rx#:[id number] Norepinephrine 4 mg In 0 83.125 Sodium Chloride 0.9% 250 ml @ 0.23 MCG/KG/MIN 58. 828 mls/hr IV .Q4H20M KEVEN Rx#:[id number] Output: Urine 428 1105 60 Other: Voiding Method Indwelling Catheter Indwelling Catheter # Bowel Movements 1 1 - Exam Gen: This is a 83-year-old female sitting up in bed in no acute distress. Daughter is at the bedside. Vital signs are stable. HEENT: Head is atraumatic, normocephalic. Pupils equal, round. Sclerae is anicteric. NECK: Supple. No JVD. No lymphadenopathy. No thyromegaly. LUNGS: Diminished breath sounds at the bases otherwise clear to auscultation. No wheezes or rhonchi. No intercostal retractions. HEART: S1 and S2 are heard, irregularly irregular, in A. fib ABDOMEN: Soft. Bowel sounds are present. No masses. Mild tenderness on deep palpation EXTREMITIES: No pedal edema. No calf tenderness. NEUROLOGICAL: Patient is awake, alert and oriented x3. Cranial nerves 2 through 12 are grossly intact. No focal deficits. SKIN: Chronic diabetic bilateral foot ulcers that have been wrapped in dressing is dry and intact. - Labs CBC & Chem 7: 05/02/19 08:03 05/02/19 04:38 Labs: Abnormal Lab Results - Last 24 Hours (Table) 05/01/19 05/01/19 05/02/19 Range/Units 16:53 20:48 04:38 Hgb (11.4-16.0) gm/dL RDW (11.5-15.5) % Lymphocytes # (1.0-4.8) k/uL Sodium 136 L (137-145) mmol/L Creatinine 0.42 L (0.52-1.04) mg/dL POC Glucose (mg/dL) 184 H 168 H (75-99) mg/dL Calcium 7.8 L (8.4-10.2) mg/dL Magnesium (1.6-2.3) mg/dL 05/02/19 05/02/19 05/02/19 Range/Units 08:03 08:03 12:04 Hgb 11.2 L (11.4-16.0) gm/dL RDW 16.0 H (11.5-15.5) % Lymphocytes # 0.9 L (1.0-4.8) k/uL Sodium (137-145) mmol/L Creatinine (0.52-1.04) mg/dL POC Glucose (mg/dL) 225 H (75-99) mg/dL Calcium (8.4-10.2) mg/dL Magnesium 1.4 L (1.6-2.3) mg/dL Microbiology - Last 24 Hours (Table) 04/29/19 00:51 Blood Culture - Preliminary Blood No Growth after 72 hours Assessment and Plan Assessment: Septic shock: Possible source of infection being urinary tract infection, vasopressin was discontinued and norepinephrine is on hold. Continue with IV fluids at 100 mL per hour. Currently still on IV antibiotics in the form of meropenem and also on flucanazole for Kate in the urine. Infectious disease is following. -Atrial fibrillation with rapid ventricular rate patient is presently on oral amiodarone. Cardiology is following. Patient is on Eliquis which will be continued. Atrial fibrillation was postdated by sepsis. Patient is presently rate controlled -Toxic encephalopathy and unresponsiveness secondary to sepsis and septic shock. -Coronary artery disease -Congestive heart failure chronic systolic dysfunction EF of around 35% patient is actually hypovolemic secondary to sepsis but need to be cautious with fluids type2 diabetes mellitus off of metformin and continue with sliding scale insul in. -Gastric reflux disease -Hyperlipidemia hypertension, patient is presently hypotensive for above mentioned chronic medical problems patient will be resumed on appropriate home medications. Patient is responding with gentle IV boluses and is currently being closely monitored in the ICU. -Patient will need GI prophylaxis because of sepsis Hypokalemia, replaced: Current potassium is 3.6 Hypomagnesemia: Being replaced this morning's labs showed 1.4 Recommendations and discussion Recommend continue current medications, management, and symptomatic treatment. Patient is currently off 2 pressors and being monitored closely. Patient's blood sugars have been up and down and will be closely monitored. Continue coverage with sliding scale insulin. Family is at the bedside. Patient is a long-term resident for [facility]. Cardiology and pulmonary are following closely as well as infectious disease. Patient is currently still on IV antibiotics in the form of meropenem which will be discontinued per infectious disease. Patient's potassium was replaced and is currently 3.6. Magnesium is being replaced today. Will continue to monitor vital signs and labs closely. Guarded prognosis. Further recommendations to follow.
[2019-05-02 17:11] LABS: Glucose,Whole Blood 196 mg/dL (75-99)
[2019-05-02] MEDS: ONDANSETRON 4 MG/2 ML VIAL IVP PRN (17:50)
[2019-05-02] MEDS ORDERED: FUROSEMIDE 10 MG/ML 4 ML VIAL IV STA (18:17)
[2019-05-02 21:42] LABS: Glucose,Whole Blood 106 mg/dL (75-99)
[2019-05-02 21:42] LABS: Glucose,Whole Blood 511 mg/dL (75-99)
[2019-05-03] MEDS: POTASSIUM CHLORIDE ER 20 MEQ TAB.ER PO SCH ×2 (01:15)
[2019-05-03] MEDS: SODIUM CHLORIDE 0.9% 50 ML with VASOPRESSIN 20 UNIT IVPB SCH ×4 (03:35→13:17)
[2019-05-03] MEDS: NOREPINEPHRINE 4 MG in SODIUM CHLORIDE 0.9% 250 ML IV SCH ×3 (03:36→12:24)
[2019-05-03 05:13] LABS: Anisocytosis Slight; HCT 30.5 % (34.0-46.0); MCH 29.6 pg (25.0-35.0); MCHC 32.8 g/dL (31.0-37.0); MCV 90.2 fL (80.0-100.0); Mean Platelet Volume 7.5; Platelet Count 230 k/uL (150-450); RBC 3.39 m/uL (3.80-5.40); RDW 16.6 % (11.5-15.5); WBC 10.3 k/uL (3.8-10.6)
[2019-05-03 05:46] LABS: African American GFR (CKD) >90 (>60 ml/min/1.73 sqM); Anion Gap 3 mmol/L; Blood Urea Nitrogen 14 mg/dL (7-17); Calcium 7.5 mg/dL (8.4-10.2); Carbon Dioxide 27 mmol/L (22-30); Chloride 106 mmol/L (98-107); Glucose 161 mg/dL (74-99); Magnesium 1.6 mg/dL (1.6-2.3); Potassium 3.9 mmol/L (3.5-5.1); Sodium 136 mmol/L (137-145)
[2019-05-03] MEDS ORDERED: POTASSIUM CHLORIDE ER 20 MEQ TAB.ER PO SCH (06:00)
[2019-05-03] MEDS: MAGNESIUM SULFATE-D5W PMX 1 GM in DEXTROSE/WATER 1 100ML.BAG IVPB SCH ×2 (06:37→07:58)
[2019-05-03 06:44] LABS: Glucose,Whole Blood 141 mg/dL (75-99)
[2019-05-03] MEDS: INSULIN ASPART (NovoLOG) 100 UNIT/ML VIAL SQ SCH ×4 (06:45→20:43)
[2019-05-03] MEDS: SIMETHICONE 80 MG CHEWABLE PO SCH ×4 (08:00→17:33)
[2019-05-03] MEDS: ATORVASTATIN 40 MG TAB PO SCH (08:00)
[2019-05-03] MEDS: AMIODARONE 200 MG TAB PO SCH ×2 (08:00→20:37)
[2019-05-03] MEDS: APIXABAN 5 MG TAB PO SCH (08:00)
[2019-05-03] MEDS: ASPIRIN 81 MG PO SCH (08:00)
[2019-05-03] MEDS: PENTOXIFYLLINE 400 MG TABLET.ER PO SCH ×3 (08:00→17:32)
[2019-05-03] MEDS: OXYBUTYNIN 10 MG TAB.ER.24 PO SCH (08:00)
[2019-05-03] MEDS: FLUCONAZOLE 100 MG TAB PO SCH (08:00)
[2019-05-03] MEDS: URSODIOL 300 MG CAP PO SCH ×2 (08:00→20:37)
[2019-05-03] MEDS: DOCUSATE 100 MG CAP PO SCH ×2 (08:00→17:32)
[2019-05-03] MEDS: METOPROLOL TARTRATE 25 MG TAB PO SCH ×2 (08:00→20:37)
[2019-05-03] MEDS: SERTRALINE 25 MG TAB PO SCH (08:00)
[2019-05-03] MEDS: PANTOPRAZOLE 40 MG TABLET PO SCH (08:00)
[2019-05-03] MEDS: ONDANSETRON 4 MG/2 ML VIAL IVP PRN (08:04)
--- NOTE | 2019-05-03 11:07 | PN ---
PROGRESS NOTE Mrs. Vega is an 83-year-old female with known history of severe ischemic cardiomyopathy, history of coronary artery disease, status post ICD implant and chronic persistent atrial fibrillation who presented with urosepsis. She is awake, alert, denying any chest pain. Her breathing has been stable. She is off the vasopressor. Hemodynamically, she has been stable without significant tachycardia or hypotension. She continues to be at this time on amiodarone 200 mg twice a day, Eliquis 5 mg twice a day, aspirin 81 mg daily, lisinopril 2.5 mg twice a day, metoprolol tartrate 25 mg twice a day. PHYSICAL EXAMINATION: Blood pressure 107/80 with the heart rate in the 90s. LUNGS: Clear, no wheezes. HEART: Irregular, irregular. S1, S2. No S3. No rub appreciated with a systolic murmur. No gallop. ABDOMEN: Soft, nontender. Positive bowel sounds. No organomegaly. EXTREMITIES: No edema and dressing noted for the foot ulcer. LAB DATA: Lab data revealed BUN and creatinine of 14 and 0.37, potassium 3.9, hemoglobin of 10. IMPRESSION: 1. Status post urosepsis and septic shock, improving. 2. Chronic persistent atrial fibrillation, anticoagulated. 3. History of severe cardiomyopathy, status post ICD implant. 4. History of coronary artery disease. 5. Diabetes. 6. Severe peripheral vascular disease. RECOMMENDATION: From the cardiac standpoint, we will continue current therapy. Increase her level of activity. Follow her heart rate when she is stable, then I would recommend to decrease the dose of her amiodarone to 200 mg daily. Depending on her progress, further recommendation will be made. MMODL / IJN: [id number] /
[2019-05-03 12:20] LABS: Glucose,Whole Blood 165 mg/dL (75-99)
[2019-05-03] MEDS: LISINOPRIL 2.5 MG TAB PO SCH ×2 (12:28→23:12)
[2019-05-03] MEDS: SPIRONOLACTONE 25 MG TAB PO SCH (12:28)
[2019-05-03] MEDS: SODIUM CHLORIDE 0.9% 1,000 ML IV SCH ×2 (12:28→23:12)
[2019-05-03] MEDS: MEROPENEM 1 GM in SODIUM CHLORIDE 0.9% 100 ML IVPB SCH (12:43)
[2019-05-03] MEDS: DRONABINOL 2.5 MG CAP PO SCH ×2 (12:43→17:33)
--- NOTE | 2019-05-03 13:41 | P.PN ---
Subjective Progress Note Date: 05/03/19 Principal diagnosis: Septic shock secondary to urinary tract infection This is an 83-year-old female patient with multiple medical problems and comorbidities was [facility] because of altered mentation. The patient developed progressive worsening in her level of consciousness and [facility] facility. The patient was transferred to the hospital upon the request of the family. The patient apparently had some nausea and emesis prior to her coming to the hospital. Despite her altered mentation and diminished level of consciousness, she continued to move all 4 extremities. In the ED, the patient was found to be hypotensive with a systolic blood pressure in the mid 40s. The patient was found to be in atrial fibrillation with rapid ventricular response a nd the patient is known to have long-term atrial fibrillation and the patient has been on long-term and to coagulation with Eliquis. Noted the patient has congestion heart failure and the patient has an AICD in place. The patient has also severe peripheral vascular disease and the patient has diabetic foot ulcers lower extremities bilaterally at the level of the first metatarsal joint medially and this is a stage IV ulcer with draining material and previous cultures have indicated growth with pseudomonas aeruginosa, Enterobacter and stenotrophomonas. Furthermore, the patient has had previous UTIs and on 01/23/2019 urine culture was positive for pseudomonas aeruginosa and E. coli. Note that the pseudomonas was an ESBL producing organism.During this current admission, the patient got transferred to the intensive care unit. Initially there was the idea of making her hospice. Later on the family changes their mind and he wanted resuscitation. Based on this, the patient was given IV fluids and immediately 2 L was infused. She was started on pressors. Urine was obtained after a Saldivar catheter insertion and the urine was quite cloudy and dirty and purulent. The UA was consistent with infection and it included yeast. Based on this, a combination of meropenem and Diflucan was started. This morning, the patient is still in a shock state. Lactic acid is gradually climbed up from a baseline of 6.1 up to 12.6. The patient has become progressively more hypotensive. The patient become pressor dependent and norepinephrine infusion is running at 30 mcg/m. The patient also has nearly absent urine output at this point in time. Extremities are extremely cold and clammy. In fact no palpable pulses in the feet bilaterally. Posterior tibialis pulses can be obtained only by Doppler signal. No dorsalis pedis with Doppler significant and the legs bilaterally. The white cell count on today's evaluation up to 47. Despite all this, she is able to answer some simple questions. Atelectatic discussion with the daughter the bedside. We have decided to more resuscitation. Note that the chest x-ray in the emergency showed some CHF findings. CAT scan of the abdomen and pelvis showed trace fluid in the lung bases along with some compressive atelectasis in the lung bases. No other abnormalities were noted. She remains in atrial fibrillation. Amiodarone is still running at a maintenance 0.5 mg per minute to control heart rate. Patient was reevaluated today on 04/30/2019, remains in the ICU, she remains on 1.5 mcg/m of norepinephrine, and 0.03 units of vasopressin for low blood pressure. Patient is asymptomatic, she is resting in bed, does not seem to be in any form of distress. Remains on broad-spectrum antibiotics coverage for her urinary tract infection, and infectious disease consultation was initiated. She is receiving Merrem and she is back on her usual cardiac meds including amiodarone and Eliquis. Patient will likely need a PICC line, hence I will arrange for one to be done today, otherwise I would have to place a central line. Urine culture is positive for Kate, blood cultures are negative so far. CBC showed leukocytosis with WBC count of 20.4, hemoglobin of 10.8. Electrolytes and renal profile are normal. Lactic acid today is 2.2. Reevaluated today on 05/01/2019, remains in the ICU, she is presently off norepinephrine, off vasopressin, maintained on amiodarone which will be discontinued hopefully today. Patient is doing much better compared to yesterday, remains on antibiotics for presumptive sepsis and septic shock secondary to urinary tract infection. Patient is currently on 2 L/m via nasal cannula of oxygen. O2 saturation is in the low 90s. Denies any shortness of breath, no cough, no wheezing, no nausea, no abdominal discomfort. Cardiology will address her amiodarone drip. She is now in atrial fibrillation with irregular rate in the range of 120. Labs were reviewed potassium is low being corrected as per protocol. Renal profile is normal. Hemoglobin is 10.3. Blood cultures remain negative and the last 48 hours. Reevaluated today on 05/02/2019, patient remains hemodynamically stable, she had slightly drops in her blood pressure last night, but responded well to fluid boluses. Remains off vasopressors. Patient is on oral amiodarone, she is in atrial fibrillation, but rate seems to be fairly well controlled. Patient denies any specific complaints. Denies any shortness of breath no cough no wh eezing. Remains on antibiotics for her urinary tract infection, and she is followed by infectious disease on the case. Could have considered transferring the patient out of the ICU today except for her intermittent episodes of hypotension. Renal status is normal, and she has a good urine output. Patient was reevaluated today on 05/03/2019, patient is doing much better, remains hemodynamically stable, no major issues overnight, she had a bit of a low urine output responded well to diuretics. Patient remains on antibiotics, and I plan to transfer the patient out of the ICU to a monitor bed on . All labs from today were reviewed. Objective - Vital Signs Vital signs: Vital Signs Temp 98.4 F 05/03/19 12:00 Pulse 112 H 05/03/19 13:00 Resp 25 H 05/03/19 13:00 BP 113/89 05/03/19 13:00 Pulse Ox 95 05/03/19 13:00 Intake & Output 05/02/19 05/03/19 05/03/19 18:59 06:59 18:59 Intake Total 2129.125 1550 900 Output Total 437 2945 247 Balance 1692.125 -1395 653 Weight 75.5 kg 80.876 kg Intake: IV 1150 1300 600 .9 50 ml/hour 50 Sodium Chloride 0.9% 1, 1100 1300 600 000 ml @ 100 mls/hr IV . Q10H [facility] Rx#:[id number] Intake, IV Titration 533.125 100 Amount Fluconazole in NaCl,Iso- 50 Osm 100 mg In Saline 1 50ml.bag @ 50 mls/hr IVPB DAILY [facility] Rx#:[id number] Magnesium Sulfate-D5w Pmx 300 100 1 gm In Dextrose/Water 1 100ml.bag @ 100 mls/hr IVPB Q1H [facility] Rx#: [id number] Meropenem 1 gm In Sodium 100 Chloride 0.9% 100 ml @ 200 mls/hr IVPB Q12H [facility] Rx#:[id number] Norepinephrine 4 mg In 83.125 Sodium Chloride 0.9% 250 ml @ 0.23 MCG/KG/MIN 58. 828 mls/hr IV .Q4H20M [facility] Rx#:[id number] Oral 446 250 200 Output: Urine 437 1865 460 Other: Voiding Method Indwelling Catheter Indwelling Catheter Indwelling Catheter - Exam Physical Exam: Revealed 83-year-old female in no distress. Pleasant, asymptomatic. Head: Atraumatic, normocephalic. HEENT:[Neck is supple.] [No neck masses.] [No thyromegaly.] [No JVD.] PERRLA, EOMI, no icterus. Chest: [Symmetrical chest expansion, no crackles or rhonchi or wheezes Cardiac Exam: Irregular irregular rhythm. [Normal S1 and S2, no S3 gallop, no murmur.] Abdomen: [Soft, nontender, no megaly, no rebound, no guarding, normal bowel sounds.] Extremities: [No clubbing, 1+ bipedal edema, no cyanosis, multiple foot ulcers were noted, wrapped with sterile dressing, been evaluated in the past by vascular surgery and infectious disease for her ulcers. Neurological Exam: Alert and oriented 3. [No focal neurologic deficit.] Psychiatric: Normal mood, affect and normal mental status examination. Musculoskeletal: No gross focal deficit. No limitation in range of motion - Labs CBC & Chem 7: 05/03/19 04:56 05/03/19 11:12 Labs: Abnormal Lab Results - Last 24 Hours (Table) 05/02/19 05/02/19 05/02/19 Range/Units 17:08 21:25 21:27 RBC (3.80-5.40) m/uL Hgb (11.4-16.0) gm/dL Hct (34.0-46.0) % RDW (11.5-15.5) % Sodium (137-145) mmol/L Potassium (3.5-5.1) mmol/L Creatinine (0.52-1.04) mg/dL Glucose (74-99) mg/dL POC Glucose (mg/dL) 196 H 511 H 106 H (75-99) mg/dL Calcium (8.4-10.2) mg/dL 05/02/19 05/03/19 05/03/19 Range/Units 21:32 04:56 04:56 RBC 3.39 L (3.80-5.40) m/uL Hgb 10.0 L (11.4-16.0) gm/dL Hct 30.5 L (34.0-46.0) % RDW 16.6 H (11.5-15.5) % Sodium 136 L (137-145) mmol/L Potassium 3.2 L (3.5-5.1) mmol/L Creatinine 0.37 L (0.52-1.04) mg/dL Glucose 161 H (74-99) mg/dL POC Glucose (mg/dL) (75-99) mg/dL Calcium 7.5 L (8.4-10.2) mg/dL 05/03/19 05/03/19 Range/Units 06:40 12:16 RBC (3.80-5.40) m/uL Hgb (11.4-16.0) gm/dL Hct (34.0-46.0) % RDW (11.5-15.5) % Sodium (137-145) mmol/L Potassium (3.5-5.1) mmol/L Creatinine (0.52-1.04) mg/dL Glucose (74-99) mg/dL POC Glucose (mg/dL) 141 H 165 H (75-99) mg/dL Calcium (8.4-10.2) mg/dL Microbiology - Last 24 Hours (Table) 04/29/19 00:51 Blood Culture - Preliminary Blood No Growth after 96 hours Assessment and Plan Assessment: Impression: 1 septic shock secondary to urinary tract infection, felt to be most likely ESBL producing pseudomonas and E. coli unless proven otherwise 2 acute lactic acidosis secondary to sepsis and septic shock 3 acute kidney injury secondary to sepsis and septic shock 4 multiple comorbidities including atrial fibrillation LV dysfunction ejection fraction of 35% and previous AICD placement, underlying coronary artery disease, type 2 diabetes, diabetic foot ulcers, history of hypertension, history of cervical cancer, history of diverticular disease, history of chronic pancreatitis, severe peripheral vessel occlusive disease involving lower extremities, and medical debility. Recommendation: Continue antibiotics Continue oral amiodarone. Continue GI and DVT prophylaxis Continue insulin as per protocol Incentive spirometry Could consider transferring the patient out of the ICU today, and we'll continue to follow Time with Patient: Less than 30
[2019-05-03] MEDS ORDERED: IOPAMIDOL-300 CONTRAST 30 ML VIAL (ORAL USE) PO PRN (13:58)
[2019-05-03] MEDS: IOPAMIDOL-300 CONTRAST 30 ML VIAL (ORAL USE) PO PRN ×2 (14:36→15:30)
--- NOTE | 2019-05-03 15:35 | P.PN ---
Subjective Progress Note Date: 05/03/19 Principal diagnosis: 82-year-old pleasant female was admitted with septic shock most probably because of urinary tract infection patient did have symptoms of UTI before admission was actually found unresponsive doing much better with lactic acid has come down to 2.4 patient vasopressin will be discontinued patient will be continued on nor epinephrine. Urine cultures were positive for Kate urine output improved patient creatinine Around 2.9 because of which I'm increasing her dose of meropenem infectious disease was consulted patient has bilateral leg wounds will need local wound care and probably not the source of infection. Constitutional: Denied any fatigue denied any fever. Cardio vascular: denied any chest pain, palpitations Gastrointestinal denied any nausea vomiting Pulmonary: Denied any shortness of breath cough Neurologic denied any new focal deficits 05/01/2019 This is an 82-year-old female who is currently in the ICU and being closely monitored. Patient is sitting up in the bed in no acute distress with daughter at the bedside. Patient is currently on 2 L of oxygen via nasal cannula and normally is not O2 dependent at [facility]. Oxygen saturations have been in the high 80s to low 90s. Patient denies any shortness of breath or chest pain at th is time. Patient is having a little bit of abdominal discomfort in the mid epigastric region. Patient states that she is eating small amounts and denies any nausea or vomiting at this time. Patient is afebrile. Patient is having some low blood pressure readings but per the patient and family member this is normal for her. Patient was currently on an amiodarone drip and being closely monitored. Awaiting cardiology recommendations. Patient does have a Saldivar catheter in place and is draining clear yellow urine. 05/02/2019 Patient is still being closely monitored in the ICU for periods of hypotension that responded with gentle fluid boluses. Patient is currently eating followed by cardiology as well and on oral amiodarone. Infectious disease is following the patient as well. Patient is afebrile. Patient is denying any shortness of breath, chest pain or palpitations at this time. Patient denies any nausea or vomiting. Patient is currently still on 2 L of oxygen via nasal cannula. Guarded prognosis 05/03/2019 Patient is lying in bed resting but easily arousable in no acute distress. Patient is currently on room air and oxygenating well. Daughter is at the bedside. Per community health nurse staff patient has not been eating very well and she has not had much of an appetite. Per daughter she normally does not eat very much and picks at her food throughout the day. Marinol was ordered and discussed with the daughter. Patient has been having some mild abdominal discomfort and a CT of the abdomen with contrast was ordered. Patient denies any chest pains, shortness of breath, or palpitations at this time. Patient denies any vomiting or nausea. Patient remains afebrile. Infectious disease is following. Patient states that she does have some discomfort of her bilateral feet due to the diabetic ulcers that is currently being managed with medihoney and dressing changes. Patient is currently awaiting a transfer from the ICU to [facility] for continued monitoring. Guarded prognosis. Objective - Vital Signs Vital signs: Vital Signs Temp 98.4 F 05/03/19 12:00 Pulse 112 H 05/03/19 13:00 Resp 25 H 05/03/19 13:00 BP 113/89 05/03/19 13:00 Pulse Ox 95 05/03/19 13:00 Intake & Output 05/02/19 05/03/19 05/03/19 18:59 06:59 18:59 Intake Total 2129.125 1550 900 Output Total 437 2945 247 Balance 1692.125 -1395 653 Weight 75.5 kg 80.876 kg Intake: IV 1150 1300 600 .9 50 ml/hour 50 Sodium Chloride 0.9% 1, 1100 1300 600 000 ml @ 100 mls/hr IV . Q10H [facility] Rx#:[id number] Intake, IV Titration 533.125 100 Amount Fluconazole in NaCl,Iso- 50 Osm 100 mg In Saline 1 50ml.bag @ 50 mls/hr IVPB DAILY [facility] Rx#:[id number] Magnesium Sulfate-D5w Pmx 300 100 1 gm In Dextrose/Water 1 100ml.bag @ 100 mls/hr IVPB Q1H [facility] Rx#: [id number] Meropenem 1 gm In Sodium 100 Chloride 0.9% 100 ml @ 200 mls/hr IVPB Q12H [facility] Rx#:[id number] Norepinephrine 4 mg In 83.125 Sodium Chloride 0.9% 250 ml @ 0.23 MCG/KG/MIN 58. 828 mls/hr IV .Q4H20M [facility] Rx#:[id number] Oral 446 250 200 Output: Urine 437 2945 247 Other: Voiding Method Indwelling Catheter Indwelling Catheter Indwelling Catheter - Exam Gen: This is a 83-year-old female lying in bed in no acute distress. Daughter is at the bedside. Vital signs are stable. Blood pressure is 97/55, pulse is 74, respirations are 19, oxygen is 95% on room air, temp is 98.4F HEENT: Head is atraumatic, normocephalic. Pupils equal, round. Sclerae is anicteric. NECK: Supple. No JVD. No lymphadenopathy. No thyromegaly. LUNGS: Diminished breath sounds at the bases otherwise clear to auscultation. No wheezes or rhonchi. No intercostal retractions. HEART: S1 and S2 are heard, irregularly irregular, in A. fib ABDOMEN: Soft. Bowel sounds are present. No masses. Mild tenderness on deep palpation in the mid epigastric area EXTREMITIES: No pedal edema. No calf tenderness. Bilateral Kerlex dressings to both feet are dry and intact NEUROLOGICAL: Patient is asleep but arousable, alert and oriented x3. Cranial nerves 2 through 12 are grossly intact. No focal deficits. SKIN: Chronic diabetic bilateral foot ulcers that have been wrapped in dressing is dry and intact. - Labs CBC & Chem 7: 05/03/19 04:56 05/03/19 11:12 Labs: Abnormal Lab Results - Last 24 Hours (Table) 05/02/19 05/02/19 05/02/19 Range/Units 17:08 21:25 21:27 RBC (3.80-5.40) m/uL Hgb (11.4-16.0) gm/dL Hct (34.0-46.0) % RDW (11.5-15.5) % Sodium (137-145) mmol/L Potassium (3.5-5.1) mmol/L Creatinine (0.52-1.04) mg/dL Glucose (74-99) mg/dL POC Glucose (mg/dL) 196 H 511 H 106 H (75-99) mg/dL Calcium (8.4-10.2) mg/dL 05/02/19 05/03/19 05/03/19 Range/Units 21:32 04:56 04:56 RBC 3.39 L (3.80-5.40) m/uL Hgb 10.0 L (11.4-16.0) gm/dL Hct 30.5 L (34.0-46.0) % RDW 16.6 H (11.5-15.5) % Sodium 136 L (137-145) mmol/L Potassium 3.2 L (3.5-5.1) mmol/L Creatinine 0.37 L (0.52-1.04) mg/dL Glucose 161 H (74-99) mg/dL POC Glucose (mg/dL) (75-99) mg/dL Calcium 7.5 L (8.4-10.2) mg/dL 05/03/19 05/03/19 Range/Units 06:40 12:16 RBC (3.80-5.40) m/uL Hgb (11.4-16.0) gm/dL Hct (34.0-46.0) % RDW (11.5-15.5) % Sodium (137-145) mmol/L Potassium (3.5-5.1) mmol/L Creatinine (0.52-1.04) mg/dL Glucose (74-99) mg/dL POC Glucose (mg/dL) 141 H 165 H (75-99) mg/dL Calcium (8.4-10.2) mg/dL Microbiology - Last 24 Hours (Table) 04/29/19 00:51 Blood Culture - Preliminary Blood No Growth after 96 hours Assessment and Plan Assessment: Septic shock: Possible source of infection being urinary tract infection. Currently still on IV antibiotics in the form of meropenem and also on flucanazole for Kate in the urine. Infectious disease is following. May discontinue meropenem. -Atrial fibrillation with rapid ventricular rate patient is presently on oral amiodarone. Cardiology is following. Patient is on Eliquis which will be continued. Atrial fibrillation was postdated by sepsis. Patient is presently rate controlled -Toxic encephalopathy and unresponsiveness secondary to sepsis and septic shock. -Coronary artery disease -Congestive heart failure chronic systolic dysfunction EF of around 35% patient is actually hypovolemic secondary to sepsis but need to be cautious with fluids type2 diabetes mellitus off of metformin and continue with sliding scale insulin. -Gastric reflux disease -Hyperlipidemia hypertension, patient is presently hypotensive for above mentioned chronic medical problems patient will be resumed on appropriate home medications. Patient is responding with gentle IV boluses and is currently being closely monitored in the ICU. -Patient will need GI prophylaxis because of sepsis Hypokalemia, replaced: Current potassium is 4.7 Hypomagnesemia: Being replaced this morning's labs showed 1.6 Poor oral intake: Per daughter patient is a very picky eater but doesn't eat much. Magic cups and Marinol ordered. Will continue to monitor intake and output. Recommendations and discussion Recommend continue current medications, management, and symptomatic treatment. Patient is awaiting for transfer out of the ICU to the selective unit with telemetry. Patient continue to have mild abdominal discomfort and a CT of the abdomen was ordered. Will await report. Patient's blood sugars have been up and down and will be closely monitored. Continue coverage with sliding scale insulin. Family is at the bedside. Patient is a long-term resident for [facility]. Cardiology and pulmonary are following closely as well as infectious d isease. Patient is currently still on IV antibiotics in the form of meropenem which will be discontinued per infectious disease. Urine culture showed Kate which is being covered with Diflucan per infectious disease recommendations. Patient's potassium was replaced yesterday and is currently 4.7. Magnesium is being replaced today. Will continue to monitor vital signs and labs closely. Guarded prognosis. Further recommendations to follow.
[2019-05-03] MEDS: ACETAMINOPHEN TAB 325 MG TAB PO PRN ×2 (15:57→23:14)
--- NOTE | 2019-05-03 16:32 | CT ---
EXAMINATION TYPE: CT abdomen pelvis w con DATE OF EXAM: 05/03/2019 HISTORY: Generalized pain CT DLP: 1610.9mGycm Automated Exposure Control for Dose Reduction was Utilized. CONTRAST: CT scan of the abdomen and pelvis is performed with IV Contrast, patient injected with 100 mL of Isov ue 300. COMPARISON: CT abdomen and pelvis from 5 days ago. FINDINGS: LUNG BASES: Small to moderate-sized bilateral pleural effusions with associated compressive atelectas is appear slightly larger in size from recent study. There is large pulmonary embolism occupying the anterior portion of the right pulmonary artery axial image 7 extending into right middle and lower lo be pulmonary arteries. Additional filling defect left lower lobe segmental branch axial image 12 is n oted on current study. There is coronary artery calcification. There is cardiomegaly with moderate bi atrial dilatation. LIVER/GB: Central pneumobilia redemonstrated. Gallbladder presumed surgically absent as is not visual ized. PANCREAS: Pancreatic atrophy with ductal dilatation and calcifications redemonstrated. CT findings co nsistent with chronic of chronic pancreatitis SPLEEN: No significant abnormality is seen. ADRENALS: No significant abnormality is seen. KIDNEYS: Cortical thinning with simple appearing thin-walled cysts in both kidneys are redemonstrated . Saldivar catheter is seen within decompressed bladder.. BOWEL: Evaluation of the bowel slightly suboptimal as oral contrast only reaches the level of the mid small bowel. Stomach is poorly distended and thus suboptimally evaluated. No suspicious small or lar ge bowel dilatation. There is moderate wall thickening involving the left colon extending through the rectum with mucosal irregularity and mild to moderate surrounding inflammatory change. UTERUS/ADNEXA: Uterus surgically absent or markedly atrophic. LYMPH NODES: No greater than 1cm abdominal or pelvic lymph nodes are appreciated. OSSEOUS STRUCTURES: Multilevel spurring of the spine is redemonstrated osseous structures are deminer alized. OTHER: Stable small right inguinal hernia containing fluid as well as nondilated small bowel loops. M ild/moderate soft tissue anasarca is new from prior. Moderate to severe predominantly calcified plaque of the aorta extends into branch vessels. IMPRESSION: 1. Partial visualization of significant right-sided pulmonary embolism with smaller left lower lobe p ulmonary embolism. 2. Small to moderate-sized bilateral pleural effusions partially imaged, right greater than left. Inc reased in size from prior study. 3. There is new [id number] colitis from splenic flexure to rectum. Differential includes infect ious, inflammatory, and ischemic etiologies. Correlate clinically. No bowel obstruction. Critical results of pulmonary embolism communicated to patient's ICU nurse via telephone at time of d ictation. A Red level critical message alert has been initiated for Cj Choe via the [employer] Results System on 05/03/2019 4:30 PM. This message alert has been sent to Cj Choe via the prefe rences provided by the clinician for the receipt of Radiology Critical Findings. Message ID [id number].
[2019-05-03] MEDS ORDERED: HEPARIN SODIUM,PORCINE 10,000 UNIT/ML 1 ML VIAL IV ONE (16:35)
[2019-05-03] MEDS ORDERED: HEPARIN SODIUM,PORCINE 5,000 UNIT/ML 1 ML VIAL IV PRN (16:35)
[2019-05-03 17:13] LABS: Anisocytosis Slight; Basophils % (A) 0 %; Eosinophils # (A) 0.1 k/uL (0-0.7); Eosinophils % (A) 1 %; HCT 34.3 % (34.0-46.0); HGB 10.7 gm/dL (11.4-16.0); Hypochromasia Moderate; Lymphocytes # (A) 0.9 k/uL (1.0-4.8); Lymphocytes % (A) 9 %; MCH 29.3 pg (25.0-35.0); MCHC 31.3 g/dL (31.0-37.0); MCV 93.3 fL (80.0-100.0); Mean Platelet Volume 7.5; Monocytes # (A) 0.6 k/uL (0-1.0); Monocytes % (A) 6 %; Neutrophils # (A) 8.5 k/uL (1.3-7.7); Neutrophils % (A) 82 %; Platelet Count 218 k/uL (150-450); RBC 3.67 m/uL (3.80-5.40); RDW 16.3 % (11.5-15.5); WBC 10.3 k/uL (3.8-10.6)
[2019-05-03 17:16] LABS: Glucose,Whole Blood 114 mg/dL (75-99)
[2019-05-03 17:17] LABS: INR 1.1 (<1.2); Partial Thromboplastin Time 27.4 sec (22.0-30.0); Prothrombin Time 11.8 sec (9.0-12.0)
[2019-05-03] MEDS: THIAMINE 100 MG TAB PO SCH (17:33)
[2019-05-03] MEDS: HEPARIN SOD,PORK IN 0.45% NACL 25,000 UNIT in 0.45% NACL 1 250ML.BAG IV SCH (17:46)
--- NOTE | 2019-05-03 17:52 | PN ---
PROGRESS NOTE DATE OF SERVICE: 05/03/2019. REASON FOR FOLLOWUP: 1. Bilateral diabetic foot wounds. 2. Stage II sacral pressure ulcer. 3. UTI. INTERVAL HISTORY: The patient is currently afebrile. The patient has been breathing comfortably. Her main symptom remains feeling weak and tired and no nausea, no vomiting. No abdominal pain and no diarrhea. PHYSICAL EXAMINATION: On examination, her blood pressure is 113/87 with a pulse of 80, temperature 98.4. She is 95% on room air. General description is an elderly female lying in bed in no distress. RESPIRATORY SYSTEM: Unlabored breathing. Clear to auscultation anteriorly. HEART: S1, S2. Regular rate and rhythm. ABDOMEN: Soft. No tenderness. Foot wounds with minimal surrounding redness or any drainage. LABS: White count 10.3, creatinine 0.37. DIAGNOSTIC IMPRESSION AND PLAN: 1. Patient admitted to hospital with sepsis, possible urinary tract infection. Urine showing only Kate albicans. The patient is on therapy with oral Diflucan. Meropenem can be safely discontinued. 2. Patient with bilateral foot wounds. Local wound care to continue with [facility]. 3. Stage II sacral wound. Continue with Aquacel Silver dressing and keep the area off pressure. Daughter at the bedside. Questions were answered. MMODL / IJN: [id number] /
[2019-05-03 20:41] LABS: Glucose,Whole Blood 157 mg/dL (75-99)
[2019-05-03] MEDS: FUROSEMIDE 10 MG/ML 2 ML VIAL IV SCH (20:43)
[2019-05-04 06:20] LABS: Glucose,Whole Blood 95 mg/dL (75-99)
[2019-05-04 06:32] LABS: Anisocytosis Slight; Basophils % (A) 0 %; Eosinophils # (A) 0.2 k/uL (0-0.7); Eosinophils % (A) 2 %; HCT 32.3 % (34.0-46.0); HGB 10.4 gm/dL (11.4-16.0); Lymphocytes # (A) 1.4 k/uL (1.0-4.8); Lymphocytes % (A) 13 %; MCH 29.1 pg (25.0-35.0); MCHC 32.3 g/dL (31.0-37.0); MCV 90.2 fL (80.0-100.0); Mean Platelet Volume 7.8; Monocytes # (A) 0.7 k/uL (0-1.0); Monocytes % (A) 7 %; Neutrophils # (A) 7.8 k/uL (1.3-7.7); Neutrophils % (A) 75 %; Platelet Count 217 k/uL (150-450); RBC 3.58 m/uL (3.80-5.40); RDW 17.3 % (11.5-15.5); WBC 10.4 k/uL (3.8-10.6)
[2019-05-04] MEDS: DRONABINOL 2.5 MG CAP PO SCH ×2 (06:35→16:50)
[2019-05-04] MEDS: SODIUM CHLORIDE 0.9% 1,000 ML IV SCH ×2 (06:35→21:29)
[2019-05-04] MEDS: INSULIN ASPART (NovoLOG) 100 UNIT/ML VIAL SQ SCH ×4 (06:36→21:39)
[2019-05-04] MEDS: ASPIRIN 81 MG PO SCH (08:07)
[2019-05-04] MEDS: ATORVASTATIN 40 MG TAB PO SCH (08:07)
[2019-05-04] MEDS: PANTOPRAZOLE 40 MG TABLET PO SCH (08:07)
[2019-05-04] MEDS: SERTRALINE 25 MG TAB PO SCH (08:07)
[2019-05-04] MEDS: PENTOXIFYLLINE 400 MG TABLET.ER PO SCH ×3 (08:08→16:50)
[2019-05-04] MEDS: SIMETHICONE 80 MG CHEWABLE PO SCH ×3 (08:08→16:50)
[2019-05-04] MEDS: FUROSEMIDE 10 MG/ML 2 ML VIAL IV SCH ×2 (08:08→21:38)
[2019-05-04] MEDS: AMIODARONE 200 MG TAB PO SCH ×2 (08:08→21:38)
[2019-05-04] MEDS: DOCUSATE 100 MG CAP PO SCH ×2 (08:08→16:50)
[2019-05-04] MEDS: SPIRONOLACTONE 25 MG TAB PO SCH (08:08)
[2019-05-04] MEDS: LISINOPRIL 2.5 MG TAB PO SCH (08:08)
[2019-05-04] MEDS: URSODIOL 300 MG CAP PO SCH ×2 (08:08→21:39)
[2019-05-04] MEDS: FLUCONAZOLE 100 MG TAB PO SCH (08:08)
[2019-05-04] MEDS: METOPROLOL TARTRATE 25 MG TAB PO SCH ×2 (08:08→21:38)
[2019-05-04] MEDS: OXYBUTYNIN 10 MG TAB.ER.24 PO SCH (08:10)
[2019-05-04] MEDS: APIXABAN 5 MG TAB PO SCH ×2 (11:05→21:38)
[2019-05-04] MEDS: HEPARIN SOD,PORK IN 0.45% NACL 25,000 UNIT in 0.45% NACL 1 250ML.BAG IV SCH (11:10)
[2019-05-04 11:23] LABS: Glucose,Whole Blood 122 mg/dL (75-99)
--- NOTE | 2019-05-04 12:12 | P.PN ---
Subjective Progress Note Date: 05/04/19 Principal diagnosis: Septic shock secondary to urinary tract infection This is an 83-year-old female patient with multiple medical problems and comorbidities was transferred from senior care because of altered mentation. The patient developed progressive worsening in her level of consciousness and [facility] facility. The patient was transferred to the hospital upon the request of the family. The patient apparently had some nausea and emesis prior to her coming to the hospital. Despite her altered mentation and diminished level of consciousness, she continued to move all 4 extremities. In the ED, the patient was found to be hypotensive with a systolic blood pressure in the mid 40s. The patient was found to be in atrial fibrillation with rapid ventricular response and the patient is known to have long-term atrial fibrillation and the patient has been on long-term and to coagulation with Eliquis. Noted the patient has congestion heart failure and the patient has an AICD in place. The patient has also severe peripheral vascular disease and the patient has diabetic foot ulcers lower extremities bilaterally at the level of the first metatarsal joint medially and this is a stage IV ulcer with draining material and previous cultures have indicated growth with pseudomonas aeruginosa, Enterobacter and stenotrophomonas. Furthermore, the patient has had previous UTIs and on 01/23/2019 urine culture was positive for pseudomonas aeruginosa and E. coli. Note that the pseudomonas was an ESBL producing organism.During this current admission, the patient got transferred to the intensive care unit. Initially there was the idea of making her hospice. Later on the family changes their mind and he wanted resuscitation. Based on this, the patient was given IV fluids and immediately 2 L was infused. She was started on pressors. Urine was obtained after a Saldivar catheter insertion and the urine was quite cloudy and dirty and purulent. The UA was consistent with infection and it included yeast. Based on this, a combination of meropenem and Diflucan was started. This morning, the patient is still in a shock state. Lactic acid is gradually climbed up from a baseline of 6.1 up to 12.6. The patient has become progressively more hypotensive. The patient become pressor dependent and norepinephrine infusion is running at 30 mcg/m. The patient also has nearly absent urine output at this point in time. Extremities are extremely cold and clammy. In fact no palpable pulses in the feet bilaterally. Posterior tibialis pulses can be obtained only by Doppler signal. No dorsalis pedis with Doppler significant and the legs bilaterally. The white cell count on today's evaluation up to 47. Despite all this, she is able to answer some simple questi ons. Atelectatic discussion with the daughter the bedside. We have decided to more resuscitation. Note that the chest x-ray in the emergency showed some CHF findings. CAT scan of the abdomen and pelvis showed trace fluid in the lung bases along with some compressive atelectasis in the lung bases. No other abnormalities were noted. She remains in atrial fibrillation. Amiodarone is still running at a maintenance 0.5 mg per minute to control heart rate. Patient was reevaluated today on 04/30/2019, remains in the ICU, she remains on 1.5 mcg/m of norepinephrine, and 0.03 units of vasopressin for low blood pressure. Patient is asymptomatic, she is resting in bed, does not seem to be in any form of distress. Remains on broad-spectrum antibiotics coverage for her urinary tract infection, and infectious disease consultation was initiated. She is receiving Merrem and she is back on her usual cardiac meds including amiodarone and Eliquis. Patient will likely need a PICC line, hence I will arrange for one to be done today, otherwise I would have to place a central line. Urine culture is positive for Kate, blood cultures are negative so far. CBC showed leukocytosis with WBC count of 20.4, hemoglobin of 10.8. Electrolytes and renal profile are normal. Lactic acid today is 2.2. Reevaluated today on 05/01/2019, remains in the ICU, she is presently off norepinephrine, off vasopressin, maintained on amiodarone which will be discontinued hopefully today. Patient is doing much better compared to yesterday, remains on antibiotics for presumptive sepsis and septic shock second tania to urinary tract infection. Patient is currently on 2 L/m via nasal cannula of oxygen. O2 saturation is in the low 90s. Denies any shortness of breath, no cough, no wheezing, no nausea, no abdominal discomfort. Cardiology will address her amiodarone drip. She is now in atrial fibrillation with irregular rate in the range of 120. Labs were reviewed potassium is low being corrected as per protocol. Renal profile is normal. Hemoglobin is 10.3. Blood cultures remain negative and the last 48 hours. Reevaluated today on 05/02/2019, patient remains hemodynamically stable, she had slightly drops in her blood pressure last night, but responded well to fluid boluses. Remains off vasopressors. Patient is on oral amiodarone, she is in atrial fibrillation, but rate seems to be fairly well controlled. Patient denies any specific complaints. Denies any shortness of breath no cough no w heezing. Remains on antibiotics for her urinary tract infection, and she is followed by infectious disease on the case. Could have considered transferring the patient out of the ICU today except for her intermittent episodes of hypotension. Renal status is normal, and she has a good urine output. Patient was reevaluated today on 05/03/2019, patient is doing much better, remains hemodynamically stable, no major issues overnight, she had a bit of a low urine output responded well to diuretics. Patient remains on antibiotics, and I plan to transfer the patient out of the ICU to a monitor bed on the [facility]. All labs from today were reviewed. On 05/04/2019 patient seen in follow-up on the [facility] care unit, she is laying comfortably in bed, in no acute distress, denies any dyspnea, she is on room air, with a pulse ox of 98%, she is afebrile, hemodynamically stable, yesterday patient had CT of abdomen and pelvis and there was incidental finding of significant right-sided pulmonary embolism with smaller left lower lobe pulmonary embolism and a small to moderate-sized bilateral pleural effusions right greater than left. Patient was started on IV heparin for anticoagulation, clinically patient denies any pulmonary symptoms, no hemoptysis, no chest pain, she remains in A. fib with a controlled rate. She was started on IV Lasix, at 20 mg every 12 hours. And patient is making large amount of urine. We'll decrease the IV fluids to KVO, we'll continue with IV steroids, patient remains on antibiotics, urine culture was positive for Kate albicans, blood culture showed no growth. Objective - Vital Signs Vital signs: Vital Signs Temp 97.8 F 05/04/19 08:16 Pulse 94 05/04/19 08:16 Resp 17 05/04/19 08:16 BP 129/74 05/04/19 08:16 Pulse Ox 98 05/04/19 08:16 Intake & Output 05/03/19 05/04/19 05/04/19 18:59 06:59 18:59 Intake Total 1650 1301.587 140 Output Total 450 725 Balance 1200 576.587 140 Weight 81.5 kg Intake: IV 1200 1140 20 Invasive Line 4 40 20 Sodium Chloride 0.9% 1, 1200 1100 000 ml @ 100 mls/hr IV . Q10H KEVEN Rx#:[id number] Intake, IV Titration 100 161.587 0 Amount Heparin Sod,Pork in 0.45% 161.587 0 NaCl 25,000 unit In 0.45 % NaCl 1 250ml.bag @ 18 UNITS/KG/HR 14.558 mls/hr IV .[id number] KEVEN Rx#: [id number] Magnesium Sulfate-D5w Pmx 100 1 gm In Dextrose/Water 1 100ml.bag @ 100 mls/hr IVPB Q1H KEVEN Rx#: [id number] Oral 350 120 Output: Urine 450 725 Other: Voiding Method Indwelling Catheter Indwelling Catheter Indwelling Catheter - Exam GENERAL EXAM: Alert, pleasant, 83-year-old white female, on room air, comfortable no signs of respiratory distress comfortable in no apparent distress. HEAD: Normocephalic/atraumatic. EYES: Normal reaction of pupils, equal size. Conjunctiva pink, sclera white. NOSE: Clear with pink turbinates. THROAT: No erythema or exudates. NECK: No masses, no JVD, no thyroid enlargement, no adenopathy. CHEST: No chest wall deformity. Symmetrical expansion. LUNGS: Diminished breath sounds at bilateral lower lobes, dullness to perc ussion, right greater than the left, no wheezes, no rhonchi CVS: Regular rate and rhythm, normal S1 and S2, no gallops, no murmurs, no rubs ABDOMEN: Soft, nontender. No hepatosplenomegaly, normal bowel sounds, no guarding or rigidity. EXTREMITIES: No clubbing, 1+ bipedal edema, no cyanosis, 2+ pulses and upper and lower extremities. Patient has multiple foot ulcers, wrapped with sterile dressing, being followed by vascular surgery and infectious disease MUSCULOSKELETAL: Muscle strength and tone normal. SPINE: No scoliosis or deformity SKIN: No rashes CENTRAL NERVOUS SYSTEM: Alert and oriented -3. No focal deficits, tone is normal in all 4 extremities. PSYCHIATRIC: Alert and oriented -3. Appropriate affect. Intact judgment and insight. - Labs CBC & Chem 7: 05/04/19 06:13 05/03/19 11:12 Labs: Abnormal Lab Results - Last 24 Hours (Table) 05/03/19 05/03/19 05/03/19 Range/Units 12:16 16:50 17:12 RBC 3.67 L (3.80-5.40) m/uL Hgb 10.7 L (11.4-16.0) gm/dL Hct (34.0-46.0) % RDW 16.3 H (11.5-15.5) % Neutrophils # 8.5 H (1.3-7.7) k/uL Lymphocytes # 0.9 L (1.0-4.8) k/uL APTT (22.0-30.0) sec POC Glucose (mg/dL) 165 H 114 H (75-99) mg/dL Phosphorus (2.5-4.5) mg/dL 05/03/19 05/04/19 05/04/19 Range/Units 20:37 00:15 06:13 RBC (3.80-5.40) m/uL Hgb (11.4-16.0) gm/dL Hct (34.0-46.0) % RDW (11.5-15.5) % Neutrophils # (1.3-7.7) k/uL Lymphocytes # (1.0-4.8) k/uL APTT >200.0 H* (22.0-30.0) sec POC Glucose (mg/dL) 157 H (75-99) mg/dL Phosphorus 2.0 L (2.5-4.5) mg/dL 05/04/19 05/04/19 05/04/19 Range/Units 06:13 06:13 11:18 RBC 3.58 L (3.80-5.40) m/uL Hgb 10.4 L (11.4-16.0) gm/dL Hct 32.3 L (34.0-46.0) % RDW 17.3 H (11.5-15.5) % Neutrophils # 7.8 H (1.3-7.7) k/uL Lymphocytes # (1.0-4.8) k/uL APTT 114.8 H* (22.0-30.0) sec POC Glucose (mg/dL) 122 H (75-99) mg/dL Phosphorus (2.5-4.5) mg/dL Microbiology - Last 24 Hours (Table) 04/29/19 00:51 Blood Culture - Preliminary Blood No Growth after 120 hours Assessment and Plan Plan: Assessment: 1 septic shock secondary to urinary tract infection, felt to be most likely ESBL producing pseudomonas and E. coli unless proven otherwise 2 acute lactic acidosis secondary to sepsis and septic shock, improved 3 acute pulmonary embolism, incidental finding on the CT of abdomen and pelvis, likely patient is asymptomatic, CT abdomen and pelvis with contrast showed significant right-sided pulmonary embolism with smaller left lower lobe pulmonary embolism 4 moderately sized bilateral pleural effusions, right greater than the left, she has been started on IV diuretics 5 acute kidney injury secondary to sepsis and septic shock 6 multiple comorbidities including atrial fibrillation LV dysfunction ejection fraction of 35% and previous AICD placement, underlying coronary artery disease, type 2 diabetes, diabetic foot ulcers, history of hypertension, history of cervical cancer, history of diverticular disease, history of chronic pancreatitis, severe peripheral vessel occlusive disease involving lower extremities, and medical debility. Plan: Pulmonary embolisms were an incidental finding on the CT of abdomen and pelvis, clinically patient denies any pulmonary complaints, she is on room air, maintaining good saturations. Patient has been started on IV heparin, she can be switched over to oral Eliquis per cardiology, no plans for thoracentesis at this time, we'll continue with IV diuresis. Cutback to IV fluids to KVO. Continue the antibiotics, hemodynamic patient is stable, no altered mentation. Daily labs, renal profile and electrolytes, we'll continue to follow I performed a history & physical examination of the patient and discussed their management with my nurse practitioner, Beatrice Fierro. I reviewed the nurse practitioner's note and agree with the documented findings and plan of care. Lung sounds are positive for diminished breath sounds. The findings and the impression was discussed with the patient. I attest to the documentation by the nurse practitioner. Time with Patient: Less than 30
--- NOTE | 2019-05-04 13:57 | PN ---
PROGRESS NOTE Mrs. Vega is an 83-year-old female with known history of chronic persistent atrial fibrillation, history coronary artery disease not amenable to surgical intervention, history of severe peripheral vascular disease who presented with urosepsis, history of severe ischemic cardiomyopathy, status post ICD implant, yesterday underwent a CAT scan that revealed evidence of pulmonary embolism. She was switched to heparin. She denies any chest pain. Her breathing is stable. She denies any dizziness or palpitation. She denies any nausea. She continues to be at this time on the IV heparin. Her Eliquis was held. She is on amiodarone 200 mg twice a day, aspirin 81 mg daily, lisinopril 2.5 mg twice a day, metoprolol tartrate 25 mg twice a day, pentoxifylline, spironolactone 25 mg daily. PHYSICAL EXAMINATION: Blood pressure 129/70 with the heart rate in the 70s. LUNGS: No wheezes with decreased breath sounds at the bases. HEART: Irregular, irregular. S1, S2. No S3. No rub. ABDOMEN: Soft, nontender. EXTREMITIES: Dressing bilaterally with chronic stasis. LAB DATA: Lab data revealed a hemoglobin of 10.4. IMPRESSION: 1. Pulmonary embolism, being treated. 2. Persistent chronic atrial fibrillation anticoagulated with controlled ventricular response. 3. Severe cardiomyopathy, status post ICD implant. 4. History of coronary artery disease. 5. Peripheral vascular disease. 6. Hyperlipidemia. 7. Urosepsis and septic shock, resolved. RECOMMENDATION: From the cardiac standpoint, I will stop the heparin and switch her to Eliquis 10 mg twice a day. We will continue on the present dose of beta sandra. I will increase her GABI inhibitor gradually. Follow her renal function, increase her level of activity and depending on her progress, further recommendation will be made. MMODL / IJN: [id number] /
--- NOTE | 2019-05-04 16:25 | P.PN ---
Subjective Progress Note Date: 05/04/19 Principal diagnosis: 82-year-old pleasant female was admitted with septic shock most probably because of urinary tract infection patient did have symptoms of UTI before admission was actually found unresponsive doing much better with lactic acid has come down to 2.4 patient vasopressin will be discontinued patient will be continued on nor epinephrine. Urine cultures were positive for Kate urine output improved patient creatinine Around 2.9 because of which I'm increasing her dose of meropenem infectious disease was consulted patient has bilateral leg wounds will need local wound care and probably not the source of infection. Constitutional: Denied any fatigue denied any fever. Cardio vascular: denied any chest pain, palpitations Gastrointestinal denied any nausea vomiting Pulmonary: Denied any shortness of breath cough Neurologic denied any new focal deficits 05/01/2019 This is an 82-year-old female who is currently in the ICU and being closely monitored. Patient is sitting up in the bed in no acute distress with daughter at the bedside. Patient is currently on 2 L of oxygen via nasal cannula and normally is not O2 dependent at [facility]. Oxygen saturations have been in the high 80s to low 90s. Patient denies any shortness of breath or chest pain at th is time. Patient is having a little bit of abdominal discomfort in the mid epigastric region. Patient states that she is eating small amounts and denies any nausea or vomiting at this time. Patient is afebrile. Patient is having some low blood pressure readings but per the patient and family member this is normal for her. Patient was currently on an amiodarone drip and being closely monitored. Awaiting cardiology recommendations. Patient does have a Saldivar catheter in place and is draining clear yellow urine. 05/02/2019 Patient is still being closely monitored in the ICU for periods of hypotension that responded with gentle fluid boluses. Patient is currently eating followed by cardiology as well and on oral amiodarone. Infectious disease is following the patient as well. Patient is afebrile. Patient is denying any shortness of breath, chest pain or palpitations at this time. Patient denies any nausea or vomiting. Patient is currently still on 2 L of oxygen via nasal cannula. Guarded prognosis 05/03/2019 Patient is lying in bed resting but easily arousable in no acute distress. Patient is currently on room air and oxygenating well. Daughter is at the bedside. Per staff forester patient has not been eating very well and she has not had much of an appetite. Per daughter she normally does not eat very much and picks at her food throughout the day. Marinol was ordered and discussed with the daughter. Patient has been having some mild abdominal discomfort and a CT of the abdomen with contrast was ordered. Patient denies any chest pains, shortness of breath, or palpitations at this time. Patient denies any vomiting or nausea. Patient remains afebrile. Infectious disease is following. Patient states that she does have some discomfort of her bilateral feet due to the diabetic ulcers that is currently being managed with medihoney and dressing changes. Patient is currently awaiting a transfer from the ICU to [facility] for continued monitoring. Guarded prognosis. 05/04/2019 Patient is sitting up in bed in no acute distress and currently on room air m aintaining her oxygen saturations. Patient is being closely monitored. Pulmonary and cardiology are following. Infectious disease is following as well. Patient denies any chest pain, shortness of breath, or palpitations at this time. Daughter is at the bedside. Patient states that she has been eating a little more since the Marinol was started yesterday and tolerating well. Patient denies any nausea or vomiting. Patient is afebrile. Patient CT of the abdomen showed some pulmonary embolisms that were incidental findings and patient was placed on a heparin drip. Per cardiology and pulmonary patient was started on oral anticoagulant of Eliquis today. Patient continues to have a Saldivar catheter in place which is draining well of clear yellow urine. Patient is having some mild discomfort in her feet and she has been due to the diabetic ulcers. Bilateral legs are elevated on some pillows at this time. Dressings are being changed daily along with the use of medihoney per infectious disease recommendations. Guarded prognosis Active Medications Acetaminophen (Tylenol Tab) 650 mg PO Q6HR PRN PRN Reason: Mild Pain or Fever > 100.5 Last Admin: 05/03/19 23:14 Dose: 650 mg Documented by: Amiodarone HCl (Cordarone) 200 mg PO BID [facility] Last Admin: 05/04/19 08:08 Dose: 200 mg Documented by: Apixaban (Eliquis) 10 mg PO BID [facility] Last Admin: 05/04/19 11:05 Dose: 10 mg Documented by: Aspirin (Aspirin) 81 mg PO DAILY [facility] Last Admin: 05/04/19 08:07 Dose: 81 mg Documented by: Atorvastatin Calcium (Lipitor) 40 mg PO DAILY [facility] Last Admin: 05/04/19 08:07 Dose: 40 mg Documented by: Bisacodyl (Dulcolax) 10 mg RECTAL DAILY PRN PRN Reason: Constipation Docusate Sodium (Colace) 100 mg PO BID@0800,1700 [facility] Last Admin: 05/04/19 08:08 Dose: 100 mg Documented by: Dronabinol (Marinol) 2.5 mg PO AC-BID [facility] Last Admin: 05/04/19 06:35 Dose: 2.5 mg Documented by: Fluconazole (Diflucan) 100 mg PO DAILY [facility] Last Admin: 05/04/19 08:08 Dose: 100 mg Documented by: Furosemide (Lasix) 20 mg IV Q12HR [facility] Last Admin: 05/04/19 08:08 Dose: 20 mg Documented by: Guaifenesin (Robitussin) 200 mg PO Q4H PRN PRN Reason: Cough Sodium Chloride (Saline 0.9%) 1,000 mls @ 20 mls/hr IV .Q24H [facility] Last Admin: 05/04/19 06:35 Dose: 100 mls/hr Documented by: Insulin Aspart (Novolog) 0 unit SQ ACHS [facility]; Protocol Last Admin: 05/04/19 11:30 Dose: Not Given Documented by: Lisinopril (Zestril) 5 mg PO BID [facility] Metoprolol Tartrate (Lopressor) 25 mg PO BID [facility] Last Admin: 05/04/19 08:08 Dose: 25 mg Documented by: Miscellaneous Information (Magnesium Per Protocol) 1 each MISCELLANE DAILY PRN; Protocol PRN Reason: Per Protocol Miscellaneous Information (Potassium Per Protocol) 1 each MISCELLANE DAILY PRN; Protocol PRN Reason: Per Protocol Miscellaneous Information (Phosphorus Per Protocol) 1 each MISCELLANE DAILY PRN; Protocol PRN Reason: Per Protocol Naloxone HCl (Narcan) 0.2 mg IV Q2M PRN PRN Reason: Opioid Reversal Ondansetron HCl (Zofran) 4 mg IVP Q6HR PRN PRN Reason: Nausea And Vomiting Last Admin: 05/03/19 08:04 Dose: 4 mg Documented by: Oxybutynin Chloride (Ditropan Xl) 10 mg PO DAILY@0800 [facility] Last Admin: 08/23/19 08:10 Dose: 10 mg Documented by: Pantoprazole Sodium (Protonix) 40 mg PO DAILY [facility] Last Admin: 05/04/19 08:07 Dose: 40 mg Documented by: Pentoxifylline (Trental) 400 mg PO TID@0800,1200,1700 [facility] Last Admin: 05/04/19 11:05 Dose: 400 mg Documented by: Sertraline HCl (Zoloft) 25 mg PO DAILY [facility] Last Admin: 05/04/19 08:07 Dose: 25 mg Documented by: Simethicone (Mylicon Chew) 80 mg PO TID@0800,1200,1700 [facility] Last Admin: 05/04/19 11:05 Dose: 80 mg Documented by: Sodium Biphosphate/Sodium Phosphate (Fleet Adult) 133 ml RECTAL DAILY PRN PRN Reason: Constipation Sodium Chloride (Saline Flush) 20 ml IV Q4HR PRN PRN Reason: PICC Line Sodium Chloride (Saline Flush) 10 ml IV WEEKLY [facility] Sodium Chloride (Saline Flush) 10 ml IV Q4HR PRN PRN Reason: PICC Line Spironolactone (Aldactone) 25 mg PO DAILY [facility] Last Admin: 05/04/19 08:08 Dose: 25 mg Documented by: Thiamine HCl (Vitamin B-1) 100 mg PO DAILY@1700 [facility] Last Admin: 05/03/19 17:33 Dose: 100 mg Documented by: Ursodiol (Actigall) 300 mg PO BID@0800,2100 [facility] Last Admin: 05/04/19 08:08 Dose: 300 mg Documented by: Objective - Vital Signs Vital signs: Vital Signs Temp 97.8 F 05/04/19 12:09 Pulse 80 05/04/19 12:09 Resp 17 05/04/19 12:09 BP 143/80 05/04/19 12:09 Pulse Ox 97 05/04/19 12:09 Intake & Output 05/03/19 05/04/19 05/04/19 18:59 06:59 18:59 Intake Total 1650 1301.587 160 Output Total 450 725 Balance 1200 576.587 160 Weight 81.5 kg Intake: IV 1200 1140 40 Invasive Line 4 40 40 Sodium Chloride 0.9% 1, 1200 1100 000 ml @ 100 mls/hr IV . Q10H [facility] Rx#:[id number] Intake, IV Titration 100 161.587 0 Amount Heparin Sod,Pork in 0.45% 161.587 0 NaCl 25,000 unit In 0.45 % NaCl 1 250ml.bag @ 18 UNITS/KG/HR 14.558 mls/hr IV .[id number] [facility] Rx#: [id number] Magnesium Sulfate-D5w Pmx 100 1 gm In Dextrose/Water 1 100ml.bag @ 100 mls/hr IVPB Q1H [facility] Rx#: [id number] Oral 350 120 Output: Urine 450 725 Other: Voiding Method Indwelling Catheter Indwelling Catheter Indwelling Catheter - Exam Gen: This is a 83-year-old female sitting up in bed in no acute distress. Daughter is at the bedside. Vital signs are stable. Blood pressure is 129/74, pulse is 80, respirations are 16, oxygen is 98% on room air, temp is 97.8 HEENT: Head is atraumatic, normocephalic. Pupils equal, round. Sclerae is anicteric. NECK: Supple. No JVD. No lymphadenopathy. No thyromegaly. LUNGS: Diminished breath sounds at the bases otherwise clear to auscultation. No wheezes or rhonchi. No intercostal retractions. HEART: S1 and S2 are heard, irregularly irregular, in A. fib rate controlled ABDOMEN: Soft. Bowel sounds are present. No masses. No tenderness EXTREMITIES: No pedal edema. No calf tenderness. Bilateral Kerlex dressings to both feet are dry and intact. Bilateral legs are elevated on pillows NEUROLOGICAL: Patient is awake, alert and oriented x3. Cranial nerves 2 through 12 are grossly intact. No focal deficits. SKIN: Chronic diabetic bilateral foot ulcers that have been wrapped in dressing is dry and intact. - Labs CBC & Chem 7: 05/04/19 06:13 05/03/19 11:12 Labs: Abnormal Lab Results - Last 24 Hours (Table) 05/03/19 05/03/19 05/03/19 Range/Units 16:50 17:12 20:37 RBC 3.67 L (3.80-5.40) m/uL Hgb 10.7 L (11.4-16.0) gm/dL Hct (34.0-46.0) % RDW 16.3 H (11.5-15.5) % Neutrophils # 8.5 H (1.3-7.7) k/uL Lymphocytes # 0.9 L (1.0-4.8) k/uL APTT (22.0-30.0) sec POC Glucose (mg/dL) 114 H 157 H (75-99) mg/dL Phosphorus (2.5-4.5) mg/dL 05/04/19 05/04/19 05/04/19 Range/Units 00:15 06:13 06:13 RBC 3.58 L (3.80-5.40) m/uL Hgb 10.4 L (11.4-16.0) gm/dL Hct 32.3 L (34.0-46.0) % RDW 17.3 H (11.5-15.5) % Neutrophils # 7.8 H (1.3-7.7) k/uL Lymphocytes # (1.0-4.8) k/uL APTT >200.0 H* (22.0-30.0) sec POC Glucose (mg/dL) (75-99) mg/dL Phosphorus 2.0 L (2.5-4.5) mg/dL 05/04/19 05/04/19 Range/Units 06:13 11:18 RBC (3.80-5.40) m/uL Hgb (11.4-16.0) gm/dL Hct (34.0-46.0) % RDW (11.5-15.5) % Neutrophils # (1.3-7.7) k/uL Lymphocytes # (1.0-4.8) k/uL APTT 114.8 H* (22.0-30.0) sec POC Glucose (mg/dL) 122 H (75-99) mg/dL Phosphorus (2.5-4.5) mg/dL Microbiology - Last 24 Hours (Table) 04/29/19 00:51 Blood Culture - Preliminary Blood No Growth after 120 hours Assessment and Plan Assessment: Septic shock: Possible source of infection being urinary tract infection. Currently on flucanazole for Kate in the urine. Infectious disease is following. -Atrial fibrillation with rapid ventricular rate patient is presently on oral amiodarone. Cardiology is following. Patient is being resumed on Eliquis. Atrial fibrillation was postdated by sepsis. Patient is presently rate controlled -Toxic encephalopathy and unresponsiveness secondary to sepsis and septic shock. -Coronary artery disease -Congestive heart failure chronic systolic dysfunction EF of around 35% patient is actually hypovolemic secondary to sepsis but need to be cautious with fluids type2 diabetes mellitus off of metformin and continue with sliding scale insulin. -Gastric reflux disease -Hyperlipidemia hypertension -Patient will need GI prophylaxis because of sepsis Hypokalemia, replaced: Current potassium is 4.7 Hypomagnesemia: 1.6 Poor oral intake: Per daughter patient is a very picky eater but doesn't eat much. Magic cups and Marinol ordered. Will continue to monitor intake and output. Patient has increased her oral intake and is tolerating diet Pulmonary embolism of the right side with a smaller left lower lobe pulmonary embolism as well. Patient was briefly placed on a heparin drip and will be transitioned to Eliquis today Bilateral pleural effusions right greater than left. Pulmonary is following and is currently on IV Lasix. Recommendations and discussion Recommend continue current medications, management, and symptomatic treatment. Patient's blood sugars have been up and down and will be closely monitored. Continue coverage with sliding scale insulin. Family is at the bedside. Saad zhang is a long-term resident for [facility]. Cardiology and pulmonary are following closely as well as infectious disease. Patient is currently Diflucan as the urine culture showed Kate. Patient's potassium was replaced yesterday and is currently 4.7. Will repeat a.m. labs. Will continue to monitor vital signs and labs closely. Guarded prognosis. Further recommendations to follow. Possible discharge in 48 hours.
[2019-05-04] MEDS: THIAMINE 100 MG TAB PO SCH (16:50)
[2019-05-04] MEDS: ACETAMINOPHEN TAB 325 MG TAB PO PRN (16:57)
[2019-05-04 17:12] LABS: Glucose,Whole Blood 117 mg/dL (75-99)
--- NOTE | 2019-05-04 19:06 | PN ---
PROGRESS NOTE DATE OF SERVICE: 05/04/2019 REASON FOR FOLLOWUP: 1. Urinary tract infection. 2. Bilateral diabetic foot wound. INTERVAL HISTORY: The patient is currently afebrile. Patient has been breathing comfortably. Denies any chest pain, no cough. No abdominal pain or any worsening pain to the foot wound area. PHYSICAL EXAMINATION: Blood pressure 143/80 with a pulse of 80. Temperature 97.8. She is 97% on room air. General description is an elderly female lying in bed in no distress. Respiratory system: Unlabored breathing. Clear to auscultation anteriorly. Heart S1, S2. Regular rate and rhythm. ABDOMEN: Soft. No tenderness. Right foot wound currently dressed up, no obvious drainage on the dressing. LABS: Hemoglobin is 10.4, white count 10.4. DIAGNOSTIC IMPRESSION/PLAN: 1. Patient admitted to the hospital with sepsis, source likely urinary tract infection. The patient urine showed E coli. Patient currently covered with oral Diflucan. Meropenem has been discontinued. 2. Bilateral diabetic foot wound with cellulitis. Local wound care to continue with the [facility]. 3. Patient with a stage II sacral pressure ulcer with no evidence of any cellulitis. Continue with Aquacel silver dressing. MMODL / IJN: [id number] /
[2019-05-04 20:51] LABS: Glucose,Whole Blood 148 mg/dL (75-99)
[2019-05-04] MEDS: LISINOPRIL 5 MG TAB PO SCH (21:38)
[2019-05-05] MEDS: ACETAMINOPHEN TAB 325 MG TAB PO PRN ×2 (00:27→11:26)
[2019-05-05] MEDS: DRONABINOL 2.5 MG CAP PO SCH ×2 (06:13→18:24)
[2019-05-05 06:27] LABS: Glucose,Whole Blood 89 mg/dL (75-99)
[2019-05-05] MEDS: INSULIN ASPART (NovoLOG) 100 UNIT/ML VIAL SQ SCH ×4 (06:27→21:06)
[2019-05-05 07:17] LABS: Anisocytosis Slight; Basophils % (A) 0 %; Eosinophils # (A) 0.2 k/uL (0-0.7); Eosinophils % (A) 2 %; HCT 32.9 % (34.0-46.0); HGB 10.8 gm/dL (11.4-16.0); Lymphocytes # (A) 1.5 k/uL (1.0-4.8); Lymphocytes % (A) 17 %; MCH 29.6 pg (25.0-35.0); MCHC 32.7 g/dL (31.0-37.0); MCV 90.4 fL (80.0-100.0); Mean Platelet Volume 7.6; Monocytes # (A) 0.7 k/uL (0-1.0); Monocytes % (A) 7 %; Neutrophils # (A) 6.5 k/uL (1.3-7.7); Neutrophils % (A) 71 %; Platelet Count 249 k/uL (150-450); RBC 3.64 m/uL (3.80-5.40); RDW 17.9 % (11.5-15.5); WBC 9.1 k/uL (3.8-10.6)
[2019-05-05 07:25] LABS: African American GFR (CKD) >90 (>60 ml/min/1.73 sqM); Anion Gap 5 mmol/L; Blood Urea Nitrogen 13 mg/dL (7-17); Calcium 7.7 mg/dL (8.4-10.2); Carbon Dioxide 27 mmol/L (22-30); Chloride 104 mmol/L (98-107); Glucose 82 mg/dL (74-99); Potassium 3.6 mmol/L (3.5-5.1); Sodium 136 mmol/L (137-145)
[2019-05-05] MEDS: APIXABAN 5 MG TAB PO SCH (09:31)
[2019-05-05] MEDS: URSODIOL 300 MG CAP PO SCH ×2 (09:31→20:29)
[2019-05-05] MEDS: SIMETHICONE 80 MG CHEWABLE PO SCH ×3 (09:32→18:26)
[2019-05-05] MEDS: SPIRONOLACTONE 25 MG TAB PO SCH (09:32)
[2019-05-05] MEDS: FLUCONAZOLE 100 MG TAB PO SCH (09:32)
[2019-05-05] MEDS: PENTOXIFYLLINE 400 MG TABLET.ER PO SCH ×3 (09:32→18:26)
[2019-05-05] MEDS: METOPROLOL TARTRATE 25 MG TAB PO SCH ×2 (09:32→20:29)
[2019-05-05] MEDS: ATORVASTATIN 40 MG TAB PO SCH (09:32)
[2019-05-05] MEDS: PANTOPRAZOLE 40 MG TABLET PO SCH (09:32)
[2019-05-05] MEDS: SERTRALINE 25 MG TAB PO SCH (09:32)
[2019-05-05] MEDS: LISINOPRIL 5 MG TAB PO SCH ×2 (09:32→21:08)
[2019-05-05] MEDS: THIAMINE 100 MG TAB PO SCH (09:33)
[2019-05-05] MEDS: OXYBUTYNIN 10 MG TAB.ER.24 PO SCH (09:33)
[2019-05-05] MEDS: ASPIRIN 81 MG PO SCH (09:33)
[2019-05-05] MEDS: FUROSEMIDE 10 MG/ML 2 ML VIAL IV SCH (09:33)
[2019-05-05] MEDS: AMIODARONE 200 MG TAB PO SCH ×2 (09:33→20:29)
[2019-05-05] MEDS: DOCUSATE 100 MG CAP PO SCH ×2 (09:33→17:52)
--- NOTE | 2019-05-05 11:23 | P.PN ---
Subjective Progress Note Date: 05/05/19 This is a pleasant 83-year-old female with a known history of chronic persistent atrial fibrillation, CAD not amenable to surgical intervention, severe peripheral vascular disease, severe ischemic cardiomyopathy, status post ICD implant. She presented with urosepsis. She underwent a computed tomography s can that did reveal evidence of pulmonary embolism. She is currently on Eliquis 10 mg BID, amiodarone 200 mg by mouth twice a day, aspirin 81 mg by mouth daily, Lasix 20 mg IV push every 12 hours, lisinopril 5 mg by mouth twice a day, metoprolol titrate 25 mg by mouth twice a day and spironolactone 25 mg by mouth daily. Upon examination, patient is resting comfortably in bed. She denies any chest discomfort. Her breathing is stable. She denies any dizziness or palpitations, nausea or vomiting. Laboratory Data was reviewed and showed hemoglobin of 10.8, BUN of 13 and creatinine 0.47. Vital signs of an stable. Objective - Vital Signs Vital signs: Vital Signs Temp 98.0 F 05/05/19 08:00 Pulse 93 05/05/19 08:00 Resp 16 05/05/19 08:00 BP 119/77 05/05/19 08:00 Pulse Ox 93 L 05/05/19 08:00 Intake & Output 05/04/19 05/05/19 05/05/19 18:59 06:59 18:59 Intake Total 240 110 860 Output Total 1000 Balance -760 110 860 Weight 81.5 kg Intake: IV 60 10 20 Invasive Line 4 60 10 20 Intake, IV Titration 0 Amount Heparin Sod,Pork in 0.45% 0 NaCl 25,000 unit In 0.45 % NaCl 1 250ml.bag @ 18 UNITS/KG/HR 14.558 mls/hr IV .[id number] [facility] Rx#: [id number] Oral 180 100 840 Output: Urine 1000 Other: Voiding Method Indwelling Catheter Indwelling Catheter Indwelling Catheter # Bowel Movements 1 - Exam PHYSICAL EXAMINATION: HEENT: Head is atraumatic, normocephalic. Pupils equal, round. Neck is supple. There is no elevated jugular venous pressure. HEART EXAMINATION: Heart sounds irregularly irregular, S1 and S2. No rub. CHEST EXAMINATION: Lungs are clear to auscultation and precussion. No chest wall tenderness is noted on palpation or with deep breathing. ABDOMEN: Soft, nontender. Bowel sounds are heard. No organomegaly noted. EXTREMITIES: Evidence of trace peripheral edema. Dressings noted bilaterally with chronic stasis. - Labs CBC & Chem 7: 05/05/19 06:20 05/05/19 06:20 Labs: Abnormal Lab Results - Last 24 Hours (Table) 05/04/19 05/04/19 05/04/19 Range/Units 11:18 17:00 20:50 RBC (3.80-5.40) m/uL Hgb (11.4-16.0) gm/dL Hct (34.0-46.0) % RDW (11.5-15.5) % Sodium (137-145) mmol/L Creatinine (0.52-1.04) mg/dL POC Glucose (mg/dL) 122 H 117 H 148 H (75-99) mg/dL Calcium (8.4-10.2) mg/dL 05/05/19 05/05/19 Range/Units 06:20 06:20 RBC 3.64 L (3.80-5.40) m/uL Hgb 10.8 L (11.4-16.0) gm/dL Hct 32.9 L (34.0-46.0) % RDW 17.9 H (11.5-15.5) % Sodium 136 L (137-145) mmol/L Creatinine 0.47 L (0.52-1.04) mg/dL POC Glucose (mg/dL) (75-99) mg/dL Calcium 7.7 L (8.4-10.2) mg/dL Microbiology - Last 24 Hours (Table) 04/29/19 00:51 Blood Culture - Final Blood No Growth after 144 hours Assessment and Plan Assessment: #1 pulmonary embolism #2 persistent chronic atrial fibrillation with controlled ventricular response, anticoagulated #3 severe cardiomyopathy, status post ICD implant #4 history of CAD #5 peripheral vascular disease #6 hyperlipidemia #7 urosepsis and septic shock, resolved Plan: From cardiology perspective, we will switch the patient to by mouth Lasix. Continue to follow renal function, electrolytes, daily weights as well as intake and output. Increase her level of activity. Depending on her progress further recommendations will be made. ONCOLOGY NURSE NAVIGATOR note has been reviewed, I agree with a documented findings and plan of care. Patient was seen and examined.
[2019-05-05 11:29] LABS: Glucose,Whole Blood 129 mg/dL (75-99)
--- NOTE | 2019-05-05 12:21 | P.PN ---
Subjective Progress Note Date: 05/05/19 Principal diagnosis: Septic shock secondary to urinary tract infection This is an 83-year-old female patient with multiple medical problems and comorbidities [facility] because of altered mentation. The patient developed progressive worsening in her level of consciousness and [facility] facility. The patient was transferred to the hospital upon the request of the family. The patient apparently had some nausea and emesis prior to her coming to the hospital. Despite her altered mentation and diminished level of consciousness, she continued to move all 4 extremities. In the ED, the patient was found to be hypotensive with a systolic blood pressure in the mid 40s. The patient was found to be in atrial fibrillation with rapid ventricular response a nd the patient is known to have long-term atrial fibrillation and the patient has been on long-term and to coagulation with Eliquis. Noted the patient has congestion heart failure and the patient has an AICD in place. The patient has also severe peripheral vascular disease and the patient has diabetic foot ulcers lower extremities bilaterally at the level of the first metatarsal joint medially and this is a stage IV ulcer with draining material and previous cultures have indicated growth with pseudomonas aeruginosa, Enterobacter and stenotrophomonas. Furthermore, the patient has had previous UTIs and on 01/23/2019 urine culture was positive for pseudomonas aeruginosa and E. coli. Note that the pseudomonas was an ESBL producing organism.During this current admission, the patient got transferred to the intensive care unit. Initially there was the idea of making her hospice. Later on the family changes their mind and he wanted resuscitation. Based on this, the patient was given IV fluids and immediately 2 L was infused. She was started on pressors. Urine was obtained after a Saldivar catheter insertion and the urine was quite cloudy and dirty and purulent. The UA was consistent with infection and it included yeast. Based on this, a combination of meropenem and Diflucan was started. This morning, the patient is still in a shock state. Lactic acid is gradually climbed up from a baseline of 6.1 up to 12.6. The patient has become progressively more hypotensive. The patient become pressor dependent and norepinephrine infusion is running at 30 mcg/m. The patient also has nearly absent urine output at this point in time. Extremities are extremely cold and clammy. In fact no palpable pulses in the feet bilaterally. Posterior tibialis pulses can be obtained only by Doppler signal. No dorsalis pedis with Doppler significant and the legs bilaterally. The white cell count on today's evaluation up to 47. Despite all this, she is able to answer some simple questions. Atelectatic discussion with the daughter the bedside. We have decided to more resuscitation. Note that the chest x-ray in the emergency showed some CHF findings. CAT scan of the abdomen and pelvis showed trace fluid in the lung bases along with some compressive atelectasis in the lung bases. No other abnormalities were noted. She remains in atrial fibrillation. Amiodarone is still running at a maintenance 0.5 mg per minute to control heart rate. Patient was reevaluated today on 04/30/2019, remains in the ICU, she remains on 1.5 mcg/m of norepinephrine, and 0.03 units of vasopressin for low blood pressure. Patient is asymptomatic, she is resting in bed, does not seem to be in any form of distress. Remains on broad-spectrum antibiotics coverage for her urinary tract infection, and infectious disease consultation was initiated. She is receiving Merrem and she is back on her usual cardiac meds including amiodarone and Eliquis. Patient will likely need a PICC line, hence I will arrange for one to be done today, otherwise I would have to place a central line. Urine culture is positive for Kate, blood cultures are negative so far. CBC showed leukocytosis with WBC count of 20.4, hemoglobin of 10.8. Electrolytes and renal profile are normal. Lactic acid today is 2.2. Reevaluated today on 05/01/2019, remains in the ICU, she is presently off norepinephrine, off vasopressin, maintained on amiodarone which will be discontinued hopefully today. Patient is doing much better compared to yesterday, remains on antibiotics for presumptive sepsis and septic shock secondary to urinary tract infection. Patient is currently on 2 L/m via nasal cannula of oxygen. O2 saturation is in the low 90s. Denies any shortness of breath, no cough, no wheezing, no nausea, no abdominal discomfort. Cardiology will address her amiodarone drip. She is now in atrial fibrillation with irregular rate in the range of 120. Labs were reviewed potassium is low being corrected as per protocol. Renal profile is normal. Hemoglobin is 10.3. Blood cultures remain negative and the last 48 hours. Reevaluated today on 05/02/2019, patient remains hemodynamically stable, she had slightly drops in her blood pressure last night, but responded well to fluid boluses. Remains off vasopressors. Patient is on oral amiodarone, she is in atrial fibrillation, but rate seems to be fairly well controlled. Patient denies any specific complaints. Denies any shortness of breath no cough no wh eezing. Remains on antibiotics for her urinary tract infection, and she is followed by infectious disease on the case. Could have considered transferring the patient out of the ICU today except for her intermittent episodes of hypotension. Renal status is normal, and she has a good urine output. Patient was reevaluated today on 05/03/2019, patient is doing much better, remains hemodynamically stable, no major issues overnight, she had a bit of a low urine output responded well to diuretics. Patient remains on antibiotics, and I plan to transfer the patient out of the ICU to a monitor bed on [facility]. All labs from today were reviewed. On 05/04/2019 patient seen in follow-up on [facility] care unit, she is laying comfortably in bed, in no acute distress, denies any dyspnea, she is on room air, with a pulse ox of 98%, she is afebrile, hemodynamically stable, yesterday patient had CT of abdomen and pelvis and there was incidental finding of significant right-sided pulmonary embolism with smaller left lower lobe pulmonary embolism and a small to moderate-sized bilateral pleural effusions right greater than left. Patient was started on IV heparin for anticoagulation, clinically patient denies any pulmonary symptoms, no hemoptysis, no chest pain, she remains in A. fib with a controlled rate. She was started on IV Lasix, at 20 mg every 12 hours. And patient is making large amount of urine. We'll decrease the IV fluids to KVO, we'll continue with IV steroids, patient remains on antibiotics, urine culture was positive for Kate albicans, blood culture showed no growth. The patient is seen today 05/05/2019 in follow-up on the selective care unit. She is currently resting comfortably in bed. Awake and alert in no acute distress. She denies any worsening shortness of breath, cough or congestion. She is maintaining O2 saturations in the 90s on room air. She's afebrile. Hemodynamically stable. Blood culture reveals no growth. White count 9.1. Hemoglobin 10.8. Creatinine 0.47. She has been transitioned to oral diuretics. Anticoagulated with Eliquis. Objective - Vital Signs Vital signs: Vital Signs Temp 98.0 F 05/05/19 08:00 Pulse 93 05/05/19 08:00 Resp 16 05/05/19 08:00 BP 119/77 05/05/19 08:00 Pulse Ox 93 L 05/05/19 08:00 Intake & Output 05/04/19 05/05/19 05/05/19 18:59 06:59 18:59 Intake Total 240 110 860 Output Total 1000 Balance -760 110 860 Weight 81.5 kg Intake: IV 60 10 20 Invasive Line 4 60 10 20 Intake, IV Titration 0 Amount Heparin Sod,Pork in 0.45% 0 NaCl 25,000 unit In 0.45 % NaCl 1 250ml.bag @ 18 UNITS/KG/HR 14.558 mls/hr IV .[id number] KEVEN Rx#: [id number] Oral 180 100 840 Output: Urine 1000 Other: Voiding Method Indwelling Catheter Indwelling Catheter Indwelling Catheter # Bowel Movements 1 - Exam GENERAL EXAM: Alert, pleasant, 83-year-old female, on room air, comfortable no signs of respiratory distress. HEAD: Normocephalic/atraumatic. EYES: Normal reaction of pupils, equal size. Conjunctiva pink, sclera white. NOSE: Clear with pink turbinates. THROAT: No erythema or exudates. NECK: No masses, no JVD, no thyroid enlargement, no adenopathy. CHEST: No chest wall deformity. Symmetrical expansion. LUNGS: Diminished breath sounds at bilateral lower lobes, dullness to percu ssion, right greater than the left, no wheezes, no rhonchi CVS: Regular rate and rhythm, normal S1 and S2, no gallops, no murmurs, no rubs ABDOMEN: Soft, nontender. No hepatosplenomegaly, normal bowel sounds, no guarding or rigidity. EXTREMITIES: No clubbing, 1+ bipedal edema, no cyanosis, 2+ pulses and upper and lower extremities. Patient has multiple foot ulcers, wrapped with sterile dressing, being followed by vascular surgery and infectious disease MUSCULOSKELETAL: Muscle strength and tone normal. SPINE: No scoliosis or deformity SKIN: No rashes CENTRAL NERVOUS SYSTEM: No focal deficits, tone is normal in all 4 extremities. PSYCHIATRIC: Alert and oriented -3. Appropriate affect. Intact judgment and insight. - Labs CBC & Chem 7: 05/05/19 06:20 05/05/19 06:20 Labs: Abnormal Lab Results - Last 24 Hours (Table) 05/04/19 05/04/19 05/05/19 Range/Units 17:00 20:50 06:20 RBC 3.64 L (3.80-5.40) m/uL Hgb 10.8 L (11.4-16.0) gm/dL Hct 32.9 L (34.0-46.0) % RDW 17.9 H (11.5-15.5) % Sodium (137-145) mmol/L Creatinine (0.52-1.04) mg/dL POC Glucose (mg/dL) 117 H 148 H (75-99) mg/dL Calcium (8.4-10.2) mg/dL 05/05/19 05/05/19 Range/Units 06:20 11:28 RBC (3.80-5.40) m/uL Hgb (11.4-16.0) gm/dL Hct (34.0-46.0) % RDW (11.5-15.5) % Sodium 136 L (137-145) mmol/L Creatinine 0.47 L (0.52-1.04) mg/dL POC Glucose (mg/dL) 129 H (75-99) mg/dL Calcium 7.7 L (8.4-10.2) mg/dL Microbiology - Last 24 Hours (Table) 04/29/19 00:51 Blood Culture - Final Blood No Growth after 144 hours Assessment and Plan Assessment: Assessment: 1 septic shock secondary to urinary tract infection, felt to be most likely ESBL producing pseudomonas and E. coli unless proven otherwise 2 acute lactic acidosis secondary to sepsis and septic shock, improved 3 acute pulmonary embolism, incidental finding on the CT of abdomen and pelvis, likely patient is asymptomatic, CT abdomen and pelvis with contrast showed significant right-sided pulmonary embolism with smaller left lower lobe pulmonary embolism 4 moderately sized bilateral pleural effusions, right greater than the left, she has been started on IV diuretics 5 acute kidney injury secondary to sepsis and septic shock 6 multiple comorbidities including atrial fibrillation LV dysfunction ejection fraction of 35% and previous AICD placement, underlying coronary artery disease, type 2 diabetes, diabetic foot ulcers, history of hypertension, history of cervical cancer, history of diverticular disease, history of chronic pancreatitis, severe peripheral vessel occlusive disease involving lower extremities, and medical debility. Plan: The patient was seen and evaluated by Dr. Choe. She is stable from the pulmonary standpoint. On room air. Denies any shortness of breath. Anticoagulated with Eliquis. No plans for thoracentesis. Increase her activity as tolerated. We'll continue to follow. I, the cosigning physician, performed a history & physical examination of the patient. Lungs sounds with crackles in posterior bases right greater than left. Maintaining good O2 saturations in the 90s on room air. I discussed the assessment and plan of care with my nurse practitioner, Purvi Thompson. I attest to the above note as dictated by her.
[2019-05-05 16:44] LABS: Glucose,Whole Blood 255 mg/dL (75-99)
--- NOTE | 2019-05-05 17:14 | US ---
EXAMINATION TYPE: US venous doppler duplex LE BI DATE OF EXAM: 05/05/2019 5:01 PM COMPARISON: NONE CLINICAL HISTORY: R/O DVT; Possible Placement of IVC filter. Edema bilateral legs SIDE PERFORMED: bilateral TECHNIQUE: The lower extremity deep venous system is examined utilizing real time linear array sonog fermni with graded compression, doppler sonography and color-flow sonography. VESSELS IMAGED: External Iliac Vein (EIV) Common Femoral Vein Deep Femoral Vein Greater Saphenous Vein * Femoral Vein Popliteal Vein Small Saphenous Vein * Proximal Calf Veins (* superficial vessels) Right Leg: Technical limitations due to large amount of edema and patient's position, leaning on r ight hip, making it difficult to evaluate right groin/upper thigh vessels. No evidence of acute DVT a s visualized Left Leg: Difficult to evaluate left popliteal vein due to patient's position,unable to rotate leg a dequately. No evidence of acute DVT as visualized IMPRESSION: Limited exam. No evidence of deep venous thrombosis.
[2019-05-05] MEDS: SODIUM CHLORIDE 0.9% 1,000 ML IV SCH (17:52)
[2019-05-05] MEDS: HYDROcodone/APAP 5-325MG 1 EACH TAB PO PRN (18:24)
[2019-05-05] MEDS: FUROSEMIDE 20 MG TAB PO SCH (18:26)
--- NOTE | 2019-05-05 20:07 | PN ---
PROGRESS NOTE DATE OF SERVICE: 05/05/2019 HISTORY OF PRESENT ILLNESS: This 83-year-old woman who was admitted with septic shock and UTI is on antibiotics, antifungals. The culture showed Kate albicans. The patient also had multiple other medical issues including pulmonary embolus. The patient is currently on Eliquis, but however the patient has also had some bleeding episodes and mucousy stool per staff. The patient is confused, unable to give a coherent history. PAST MEDICAL HISTORY: Reviewed. REVIEW OF SYSTEMS: Could not be taken. CURRENT MEDICATIONS ARE: 1. Tylenol 650 q.6h p.r.n. 2. [place] 5 mg half tablets q.6h p.r.n. 3. Cordarone 200 mg p.o. b.i.d. 4. Lipitor 40 mg daily. 6. Colace 100 mg p.o. b.i.d. 7. Marinol 2.5 mg b.i.d. 8. Diflucan 100 mg p.o. daily. 9. Lasix 20 mg p.o. b.i.d. 10.Robitussin 200 mg q.4 p.r.n. 11.Zestril 5 mg p.o. b.i.d. 12.Lopressor 25 mg p.o. b.i.d. 13.Replacement protocols. 14.Narcan p.r.n. 15.Zofran. 16.Ditropan XL 10 mg. 17.Protonix 40 mg daily. 18.Trental 400 mg p.o. t.i.d. 19.Zoloft 25 mg p.o. daily. 20.Simethicone. 21.Fleet's enema p.r.n. 22.Aldactone 25 mg. 23.Vitamin B1. 24.Actigall 300 mg p.o. b.i.d. PHYSICAL EXAMINATION: Patient is conscious, confused. Pulse 69, blood pressure 103/60, respirations 16, temperature 98.2, pulse ox 97% on room air. HEENT: Conjunctivae normal. Oral mucosa moist. NECK is no jugular venous distention. No carotid bruit. No lymph node enlargement. Cardiovascular: S1, S2 muffled. Ejection systolic murmur. Respirations: Breath sounds diminished at the bases. A few scattered rhonchi and crackles. ABDOMEN: Soft, nontender. LEGS are no edema. No swelling. CENTRAL NERVOUS SYSTEM: Diffusely weak. LAB: WBC 9.2, hemoglobin 10.8, sodium 136, and glucose 129. ASSESSMENT: 1. Urinary tract infection with severe sepsis and hypotension, septic shock, present on admission with a Kate urinary tract infection. 2. Atrial fibrillation with rapid ventricular rate, on Eliquis. 3. Metabolic toxic encephalopathy, multifactorial. 4. Coronary artery disease. 5. History of congestive heart failure with chronic systolic dysfunction, ejection fraction 35%. 6. Diabetes mellitus type 2. 7. Gastroesophageal reflux disease. 8. Hyperlipidemia. 9. Hypertension. 10.Gastrointestinal prophylaxis. 11.Acute pulmonary embolism, right side and smaller on the left side. 12.Possible gastrointestinal bleed. RECOMMENDATIONS AND DISCUSSION: This 83-year-old woman who presented with multiple complex medical issues, at this time I recommend to hold the Eliquis and aspirin and other antiplatelet agents and continue to monitor. Gastroenterology has been consulted. Otherwise repeat labs today. I would also recommend consultation with vascular surgeon, Dr. Oquendo or Interventional Radiology for possible IVC placement because of the patient's bleeding and the presence of pulmonary embolism also. The overall prognosis extremely guarded because of multiple complex medical issues as mentioned earlier. See orders for details. Further recommendations to follow. Discussed with staff. MMODL / IJN: [id number] / WADE
[2019-05-05 20:56] LABS: Glucose,Whole Blood 388 mg/dL (75-99)
[2019-05-06] MEDS: HYDROcodone/APAP 5-325MG 1 EACH TAB PO PRN ×3 (00:41→15:04)
[2019-05-06] MEDS: ONDANSETRON 4 MG/2 ML VIAL IVP PRN (00:57)
[2019-05-06 01:06] LABS: Glucose,Whole Blood 111 mg/dL (75-99)
[2019-05-06 06:16] LABS: Glucose,Whole Blood 88 mg/dL (75-99)
[2019-05-06] MEDS: INSULIN ASPART (NovoLOG) 100 UNIT/ML VIAL SQ SCH ×4 (06:45→21:32)
[2019-05-06] MEDS: DRONABINOL 2.5 MG CAP PO SCH ×2 (06:46→15:00)
[2019-05-06 07:15] LABS: ALT 25 U/L (9-52); AST 13 U/L (14-36); African American GFR (CKD) >90 (>60 ml/min/1.73 sqM); Alkaline Phosphatase 91 U/L (38-126); Anion Gap 5 mmol/L; Blood Urea Nitrogen 15 mg/dL (7-17); Calcium 7.6 mg/dL (8.4-10.2); Carbon Dioxide 29 mmol/L (22-30); Chloride 102 mmol/L (98-107); Glucose 78 mg/dL (74-99); Potassium 3.5 mmol/L (3.5-5.1); Sodium 136 mmol/L (137-145); Total Bilirubin 0.4 mg/dL (0.2-1.3); Total Protein 4.5 g/dL (6.3-8.2)
[2019-05-06 07:20] LABS: Anisocytosis Slight; Basophils % (A) 0 %; Eosinophils # (A) 0.3 k/uL (0-0.7); Eosinophils % (A) 4 %; HCT 32.4 % (34.0-46.0); HGB 10.5 gm/dL (11.4-16.0); Lymphocytes # (A) 1.7 k/uL (1.0-4.8); Lymphocytes % (A) 23 %; MCH 29.1 pg (25.0-35.0); MCHC 32.3 g/dL (31.0-37.0); Mean Platelet Volume 7.5; Monocytes # (A) 0.6 k/uL (0-1.0); Monocytes % (A) 9 %; Neutrophils # (A) 4.7 k/uL (1.3-7.7); Neutrophils % (A) 63 %; Platelet Count 273 k/uL (150-450); RDW 18.1 % (11.5-15.5); WBC 7.4 k/uL (3.8-10.6)
[2019-05-06] MEDS: PANTOPRAZOLE 40 MG TABLET PO SCH (08:37)
[2019-05-06] MEDS: SPIRONOLACTONE 25 MG TAB PO SCH (08:37)
[2019-05-06] MEDS: SERTRALINE 25 MG TAB PO SCH (08:38)
[2019-05-06] MEDS: AMIODARONE 200 MG TAB PO SCH ×2 (08:38→20:02)
[2019-05-06] MEDS: METOPROLOL TARTRATE 25 MG TAB PO SCH ×2 (08:38→20:02)
[2019-05-06] MEDS: FUROSEMIDE 20 MG TAB PO SCH ×2 (08:38→15:00)
[2019-05-06] MEDS: URSODIOL 300 MG CAP PO SCH ×2 (08:38→20:02)
[2019-05-06] MEDS: LISINOPRIL 5 MG TAB PO SCH ×2 (08:38→21:32)
[2019-05-06] MEDS: PENTOXIFYLLINE 400 MG TABLET.ER PO SCH ×3 (08:38→15:01)
[2019-05-06] MEDS: ATORVASTATIN 40 MG TAB PO SCH (08:38)
[2019-05-06] MEDS: FLUCONAZOLE 100 MG TAB PO SCH (08:38)
[2019-05-06] MEDS: OXYBUTYNIN 10 MG TAB.ER.24 PO SCH (08:39)
[2019-05-06] MEDS: DOCUSATE 100 MG CAP PO SCH ×2 (08:39→16:54)
[2019-05-06] MEDS: SIMETHICONE 80 MG CHEWABLE PO SCH ×3 (08:39→15:01)
[2019-05-06 11:46] LABS: Glucose,Whole Blood 97 mg/dL (75-99)
--- NOTE | 2019-05-06 11:48 | CONS ---
DATE OF CONSULTATION: 05/06/2019 This is an 83-year-old, pleasant female, well known to me from the wound center. She has been coming on a regular basis for wound on both feet. She had a debridement and local wound care as an outpatient. The patient was hospitalized last month at the [facility]. At that time, patient had a CT of the chest and was found to have a bilateral pulmonary embolism. The patient had a CT of the abdomen and chest done on this admission and found to have a bilateral pulmonary embolism and patient also has some history of colitis in the past. The patient had an episode of lower GI bleed with some clot in the stool. Since admission, she has no further bleeding. The patient has history of atrial fibrillation on Eliquis. Patient has history of coronary artery disease, congestive heart failure, history of diabetes mellitus. I was consulted for placement of the filter because of finding on CT pulmonary embolism and with GI bleed. The patient was seen in her room, lying comfortably in bed. Neck is supple. Chest a few crackles at the lung bases. Abdomen is soft. Femoral pulses are present. The patient has a chronic wound on both lower feet. We will continue local wound care. At this point, I have discussed with her daughter. She is a nurse at [employer] and we are aware of this clot in her lung, which was a month ago, but we will get the report from the [facility] to compare. At this point, I will hold the filter till we get the report from [facility] and we can compare both CT findings and I have discussed with the daughter and she agrees. We will follow with you very closely. Patient Eliquis was stopped yesterday. She took first dose at 9:30. If she needs filter, we will place to wait for another [address] a filter, if the patient has same PE in the past 1 month, this could be old. I will discuss with Internal Medicine and follow with you. Thank you very much for the consultation. MMODL / IJN: [id number] / MTDJona
--- NOTE | 2019-05-06 12:23 | P.PN ---
Subjective Progress Note Date: 05/06/19 This is a pleasant 83-year-old female with a known history of chronic persistent atrial fibrillation, CAD not amenable to surgical intervention, severe peripheral vascular disease, severe ischemic cardiomyopathy, status post ICD implant. She presented with urosepsis. She underwent a computed tomography s can that did reveal evidence of pulmonary embolism. She is currently on Eliquis 10 mg BID, amiodarone 200 mg by mouth twice a day, aspirin 81 mg by mouth daily, Lasix 20 mg IV push every 12 hours, lisinopril 5 mg by mouth twice a day, metoprolol titrate 25 mg by mouth twice a day and spironolactone 25 mg by mouth daily. Upon examination, patient is resting comfortably in bed. She denies any chest discomfort. Her breathing is stable. She denies any dizziness or palpitations, nausea or vomiting. Laboratory Data was reviewed and showed hemoglobin of 10.8, BUN of 13 and creatinine 0.47. 05/06/19 - upon examination, patient is resting comfortable in bed. She denies complaint of chest discomfort, nausea or vomiting. She's had no palpitations or dizziness. She feels her breathing is stable. Labs today show hemoglobin of 10.5, potassium 3.5, BUN of 15 and creatinine 0.47. Her Eliquis hasn't placed on hold for possible filter placement due to recent lower GI bleed. She has had no bleeding this admission. Objective - Vital Signs Vital signs: Vital Signs Temp 98.2 F 05/06/19 08:00 Pulse 74 05/06/19 08:00 Resp 18 05/06/19 08:00 BP 109/66 05/06/19 08:00 Pulse Ox 95 05/06/19 08:00 Intake & Output 05/05/19 05/06/19 05/06/19 18:59 06:59 18:59 Intake Total 1080 700 20 Output Total 1450 200 520 Balance -370 500 -500 Weight 124.5 kg Intake: IV 40 20 Invasive Line 4 40 20 Oral 1040 700 Output: Urine 1400 200 500 Stool 50 20 Other: Voiding Method Bedpan Diaper Bedpan Diaper # Voids 2 1 # Bowel Movements 1 - Exam PHYSICAL EXAMINATION: HEENT: Head is atraumatic, normocephalic. Pupils equal, round. Neck is supple. There is no elevated jugular venous pressure. HEART EXAMINATION: Heart sounds irregularly irregular, S1 and S2. No rub. CHEST EXAMINATION: Lungs are clear to auscultation and precussion. No chest wall tenderness is noted on palpation or with deep breathing. ABDOMEN: Soft, nontender. Bowel sounds are heard. No organomegaly noted. EXTREMITIES: Evidence of mild peripheral edema. Dressings noted bilaterally with chronic stasis. - Labs CBC & Chem 7: 05/06/19 05:53 05/06/19 05:53 Labs: Abnormal Lab Results - Last 24 Hours (Table) 05/05/19 05/05/19 05/06/19 Range/Units 16:43 20:55 01:04 RBC (3.80-5.40) m/uL Hgb (11.4-16.0) gm/dL Hct (34.0-46.0) % RDW (11.5-15.5) % Sodium (137-145) mmol/L Creatinine (0.52-1.04) mg/dL POC Glucose (mg/dL) 255 H 388 H 111 H (75-99) mg/dL Calcium (8.4-10.2) mg/dL AST (14-36) U/L Total Protein (6.3-8.2) g/dL Albumin (3.5-5.0) g/dL 05/06/19 05/06/19 Range/Units 05:53 05:53 RBC 3.60 L (3.80-5.40) m/uL Hgb 10.5 L (11.4-16.0) gm/dL Hct 32.4 L (34.0-46.0) % RDW 18.1 H (11.5-15.5) % Sodium 136 L (137-145) mmol/L Creatinine 0.47 L (0.52-1.04) mg/dL POC Glucose (mg/dL) (75-99) mg/dL Calcium 7.6 L (8.4-10.2) mg/dL AST 13 L (14-36) U/L Total Protein 4.5 L (6.3-8.2) g/dL Albumin 2.0 L (3.5-5.0) g/dL Assessment and Plan Assessment: #1 pulmonary embolism #2 persistent chronic atrial fibrillation with controlled ventricular response, anticoagulated #3 severe cardiomyopathy, status post ICD implant #4 history of CAD #5 peripheral vascular disease #6 hyperlipidemia #7 urosepsis and septic shock, resolved Plan: From cardiology perspective, medications were reviewed and we will continue the same. Resume Eliquis when ok with vascular. We will continue to follow the patient and Depending on her progress further recommendations will be made. [employer] note has been reviewed, I agree with a documented findings and plan of care. Patient was seen and examined.
[2019-05-06] MEDS: THIAMINE 100 MG TAB PO SCH (15:00)
[2019-05-06 16:54] LABS: Glucose,Whole Blood 128 mg/dL (75-99)
[2019-05-06] MEDS: SODIUM CHLORIDE 0.9% 1,000 ML IV SCH (16:54)
[2019-05-06 21:01] LABS: Glucose,Whole Blood 157 mg/dL (75-99)
--- NOTE | 2019-05-06 22:45 | PN ---
PROGRESS NOTE DATE OF SERVICE: 05/06/2019 This 83-year-old woman was admitted with sepsis shock and UTI, also on antibiotic. The patient also grew Kate albicans grown from the culture. The patient also had history of pulmonary embolism. Patient is currently on Eliquis. Patient has some bleeding noted. GI bleeding at this time. The patient also had atrial fibrillation. However, because GI bleeding, Eliquis is on hold. Dr. Oquendo is evaluating the patient for possibly IVC filter placement. Patient being closely monitored at this time. PAST MEDICAL HISTORY: Reviewed. REVIEW OF SYSTEMS: CARDIOVASCULAR SYSTEM: No angina or palpitations. RESPIRATORY: As mentioned earlier. GI: As mentioned earlier. no dysuria. NERVOUS SYSTEM: No numbness or weakness. CURRENT MEDICATIONS ARE: 1. Tylenol 650 q.6h p.r.n. 2. [place] 5 mg q.6h. 3. Cordarone 200 mg p.o. b.i.d. 4. Lipitor 40 mg p.o. daily. 5. Dulcolax 10 mg p.r.n. 6. Colace 100 mg p.o. b.i.d. 7. Marinol 2.5 mg b.i.d. 8. Diflucan 100 mg p.o. daily. 9. Lasix 20 mg p.o. b.i.d. 10.Robitussin 200 mg q.4 p.r.n. 11.NovoLog scale. 12.Zestril 5 mg p.o. b.i.d. 13.Lopressor 25 mg b.i.d. 14.Replacement protocols. 15.Narcan. 16.Zofran. 17.Ditropan XL. 18.Protonix 40 mg trending. 19.Zoloft. 20.Fleet enema. 21.Aldactone. 22.Vitamin B1. 23.Active. PHYSICAL EXAM: Patient is alert, oriented x3. Pulse is 85, blood pressure 115/72, respiration 18, temperature 97.2, pulse ox 94% on room air. HEENT: Conjunctivae normal. Oral mucosa moist. NECK is no jugular venous distention. No lymph node enlargement. Cardiovascular S1 respiration the bases scattered rhonchi and crackles. ABDOMEN: Soft, nontender. No mass palpable. LEGS: Are no edema. No swelling. CENTRAL NERVOUS SYSTEM: Diffusely weak. LAB STUDIES: WBC 7.8, hemoglobin 10.5, which is down from 10.8 yesterday. Otherwise, other labs are noted. ASSESSMENT: 1. Urinary tract infection with severe sepsis, hypotension, septic shock, present on admission with Kate urinary tract infection. 2. Atrial fibrillation with rapid ventricular rate on Eliquis. 3. Gastrointestinal bleeding with acute blood loss anemia secondary to gastrointestinal bleed. 4. Metabolic toxic encephalopathy multifactorial. 5. History of recent pulmonary embolism. 6. History of congestive heart failure with chronic systolic dysfunction, ejection fraction 30 to 35%. 7. History of atrial fibrillation. 8. Diabetes mellitus type 2. 9. Gastroesophageal reflux disease. 10.Hyperlipidemia. 11.Hypertension. 12.Gastrointestinal prophylaxis. RECOMMENDATIONS AND DISCUSSION: In this 83-year-old woman who presented with multiple medical issues, at this time I recommend to continue current medication, continue symptomatic treatment. Otherwise at this time, I recommend to hold the Eliquis and discuss with Dr. Oquendo, possible IVC filter placement. Otherwise, guarded prognosis because of multiple complex medical issues. Continue the rest of medication. Monitor hemoglobin closely. Hold antiplatelet agents for now. Closely follow with Cardiology. Guarded prognosis. Further recommendations to follow. Discussed with the family and Dr. Rogers will follow tomorrow. MMODL / IJN: [id number] /
--- NOTE | 2019-05-07 01:36 | PN ---
PROGRESS NOTE DATE OF SERVICE: May 06. REASON FOR FOLLOWUP VISIT: 1. Urinary tract infection. 2. Bilateral wound diabetic foot ulcer. 3. Sacral pressure ulcer. INTERVAL HISTORY: The patient is currently afebrile. Patient has been breathing comfortably. Denies having any chest pain or any cough. No abdominal pain or any worsening pain in the foot area and no diarrhea. PHYSICAL EXAMINATION: Blood pressure 101/69 with a pulse of 67, temperature 98.2. She is 95% on room air. General description is an elderly female lying in bed in no distress. Respiratory system: Unlabored breathing. Clear to auscultation anteriorly. Heart S1, S2. Regular rate and rhythm. Abdomen soft, no tenderness. Bilateral feet wound are currently dressed up. No obvious drainage on the dressing. LABS: Hemoglobin is 10.5, white count 7.4 with a BUN of 15, creatinine 0.47. DIAGNOSTIC IMPRESSION/PLAN: 1. Patient admitted to the hospital with sepsis. Source is urinary tract infection. Urine has been finalized with Kate albicans. The patient is currently covered with Diflucan to finish a 7 to 10 day course of therapy. 2. Bilateral diabetic foot ulcers. Local would care to continue with [facility]. 3. Stage II sacral wound. Local wound care with Aquacel dressing to keep the area off the pressure. MMODL / IJN: [id number] /
[2019-05-07] MEDS: HYDROcodone/APAP 5-325MG 1 EACH TAB PO PRN ×3 (01:51→18:37)
[2019-05-07 01:57] LABS: Glucose,Whole Blood 109 mg/dL (75-99)
[2019-05-07 06:19] LABS: Glucose,Whole Blood 103 mg/dL (75-99)
[2019-05-07 06:22] LABS: Anisocytosis Slight; Basophils % (A) 0 %; Eosinophils # (A) 0.2 k/uL (0-0.7); Eosinophils % (A) 2 %; HCT 32.9 % (34.0-46.0); HGB 10.6 gm/dL (11.4-16.0); Hypochromasia Slight; Lymphocytes # (A) 1.4 k/uL (1.0-4.8); Lymphocytes % (A) 18 %; MCH 29.5 pg (25.0-35.0); MCHC 32.2 g/dL (31.0-37.0); MCV 91.6 fL (80.0-100.0); Mean Platelet Volume 7.4; Monocytes # (A) 0.5 k/uL (0-1.0); Monocytes % (A) 6 %; Neutrophils # (A) 5.7 k/uL (1.3-7.7); Neutrophils % (A) 72 %; Platelet Count 276 k/uL (150-450); RDW 18.3 % (11.5-15.5); WBC 7.9 k/uL (3.8-10.6)
[2019-05-07 06:25] LABS: ALT 20 U/L (9-52); AST 16 U/L (14-36); African American GFR (CKD) >90 (>60 ml/min/1.73 sqM); Alkaline Phosphatase 95 U/L (38-126); Anion Gap 3 mmol/L; Blood Urea Nitrogen 12 mg/dL (7-17); Calcium 7.4 mg/dL (8.4-10.2); Carbon Dioxide 30 mmol/L (22-30); Chloride 101 mmol/L (98-107); Glucose 96 mg/dL (74-99); Potassium 3.3 mmol/L (3.5-5.1); Sodium 134 mmol/L (137-145); Total Bilirubin 0.4 mg/dL (0.2-1.3); Total Protein 4.5 g/dL (6.3-8.2)
[2019-05-07] MEDS: INSULIN ASPART (NovoLOG) 100 UNIT/ML VIAL SQ SCH ×4 (06:27→22:08)
[2019-05-07] MEDS: DRONABINOL 2.5 MG CAP PO SCH ×2 (06:29→18:37)
[2019-05-07] MEDS: ONDANSETRON 4 MG/2 ML VIAL IVP PRN (06:53)
[2019-05-07] MEDS: ACETAMINOPHEN TAB 325 MG TAB PO PRN (06:53)
[2019-05-07] MEDS: METOPROLOL TARTRATE 25 MG TAB PO SCH ×2 (09:11→20:03)
[2019-05-07] MEDS: OXYBUTYNIN 10 MG TAB.ER.24 PO SCH (09:11)
[2019-05-07] MEDS: LISINOPRIL 5 MG TAB PO SCH ×2 (09:11→21:38)
[2019-05-07] MEDS: FUROSEMIDE 20 MG TAB PO SCH ×2 (09:11→18:22)
[2019-05-07] MEDS: FLUCONAZOLE 100 MG TAB PO SCH (09:11)
[2019-05-07] MEDS: AMIODARONE 200 MG TAB PO SCH ×2 (09:11→20:03)
[2019-05-07] MEDS: PANTOPRAZOLE 40 MG TABLET PO SCH (09:11)
[2019-05-07] MEDS: SERTRALINE 25 MG TAB PO SCH (09:11)
[2019-05-07] MEDS: ATORVASTATIN 40 MG TAB PO SCH (09:11)
[2019-05-07] MEDS: SPIRONOLACTONE 25 MG TAB PO SCH (09:12)
[2019-05-07] MEDS: PENTOXIFYLLINE 400 MG TABLET.ER PO SCH ×3 (09:12→18:37)
[2019-05-07] MEDS: URSODIOL 300 MG CAP PO SCH ×2 (09:12→20:03)
[2019-05-07] MEDS: DOCUSATE 100 MG CAP PO SCH ×2 (09:12→18:22)
[2019-05-07 11:23] VITALS: BMI 50.1
[2019-05-07] MEDS: SIMETHICONE 80 MG CHEWABLE PO SCH ×3 (11:27→18:37)
--- NOTE | 2019-05-07 11:44 | P.PN ---
Subjective Progress Note Date: 05/07/19 Is is an 83-year-old female with known history of chronic persistent atrial fibrillation, CAD not amendable for surgical intervention, severe PVD, severe ischemic cardiomyopathy status post seed implant, she initially presented to the hospital with urosepsis. Patient has been off her Eliquis for the past couple of days because of potential placement of a Shahana filter, patient had some GI bleeding and for this reason a [place] filter is going to be placed. All confirm whether or not the [place] will be placed today, denies patient does need to resume anticoagulation. This morning she was complaining of some discomfort in her left lower abdominal region, denies any palpitations, and her breathing overall has been stable. Objective - Vital Signs Vital signs: Vital Signs Temp 97.4 F L 05/07/19 09:00 Pulse 59 L 05/07/19 09:00 Resp 18 05/07/19 09:00 BP 105/62 05/07/19 09:00 Pulse Ox 94 L 05/07/19 09:00 Intake & Output 05/06/19 05/07/19 05/07/19 18:59 06:59 18:59 Intake Total 300 660 20 Output Total 1456 800 Balance -1156 -140 20 Weight 124.3 kg 124.3 kg Intake: IV 60 60 20 Invasive Line 4 60 60 20 Oral 240 600 0 Output: Urine 1426 800 Stool 30 Other: Voiding Method Bedpan Bedpan Bedpan # Voids 1 2 1 # Bowel Movements 1 - Exam PHYSICAL EXAMINATION: HEENT: Head is atraumatic, normocephalic. Pupils equal, round. Neck is supple. There is no elevated jugular venous pressure. HEART EXAMINATION: Heart sounds irregularly irregular, S1 and S2. No rub. CHEST EXAMINATION: Lungs are clear to auscultation and precussion. No chest wall tenderness is noted on palpation or with deep breathing. ABDOMEN: Soft, mild left upper quadrant tenderness . Bowel sounds are heard. No organomegaly noted. EXTREMITIES: Evidence of mild peripheral edema. Dressings noted bilaterally w ith chronic stasis. - Labs CBC & Chem 7: 05/07/19 05:37 05/07/19 05:37 Labs: Abnormal Lab Results - Last 24 Hours (Table) 05/06/19 05/06/19 05/07/19 Range/Units 16:42 21:00 01:54 RBC (3.80-5.40) m/uL Hgb (11.4-16.0) gm/dL Hct (34.0-46.0) % RDW (11.5-15.5) % Sodium (137-145) mmol/L Potassium (3.5-5.1) mmol/L Creatinine (0.52-1.04) mg/dL POC Glucose (mg/dL) 128 H 157 H 109 H (75-99) mg/dL Calcium (8.4-10.2) mg/dL Total Protein (6.3-8.2) g/dL Albumin (3.5-5.0) g/dL 05/07/19 05/07/19 05/07/19 Range/Units 05:37 05:37 06:18 RBC 3.60 L (3.80-5.40) m/uL Hgb 10.6 L (11.4-16.0) gm/dL Hct 32.9 L (34.0-46.0) % RDW 18.3 H (11.5-15.5) % Sodium 134 L (137-145) mmol/L Potassium 3.3 L (3.5-5.1) mmol/L Creatinine 0.40 L (0.52-1.04) mg/dL POC Glucose (mg/dL) 103 H (75-99) mg/dL Calcium 7.4 L (8.4-10.2) mg/dL Total Protein 4.5 L (6.3-8.2) g/dL Albumin 2.0 L (3.5-5.0) g/dL Assessment and Plan Plan: Assessment: #1 pulmonary embolism #2 persistent chronic atrial fibrillation with controlled ventricular response, anticoagulated #3 severe cardiomyopathy, status post ICD implant #4 history of CAD #5 peripheral vascular disease #6 hyperlipidemia #7 urosepsis and septic shock, resolved Plan We will check to see if the patient is undergoing the placement of the [place] filter today, if not she needs to be resumed on anticoagulation possible. Continue to follow. DNP note has been reviewed, I agree with a documented findings and plan of care. Patient was seen and examined.
[2019-05-07 12:04] LABS: Glucose,Whole Blood 114 mg/dL (75-99)
--- NOTE | 2019-05-07 16:37 | PN ---
PROGRESS NOTE This 83-year-old female, well known to me from the wound clinic, has bilateral foot wounds. She has been coming to the wound clinic for local wound care. Patient has bilateral PE by CT scan and also patient developed some GI bleed. The patient was evaluated. I have discussed with Dr. Lowery and the family. Her daughter is a registered nurse at [employer]. We discussed in detail about placement of a filter because the patient's Eliquis has been stopped. We will arrange for the catheter placement. Risks and complications were discussed. MMODL / IJN: [id number] /
[2019-05-07] MEDS: SODIUM CHLORIDE 0.9% 1,000 ML IV SCH (17:19)
[2019-05-07] MEDS ORDERED: LIDOCAINE 1% INJ 10MG/ML (20 ML MDV) SQ ONE (17:21)
[2019-05-07] MEDS ORDERED: SODIUM CHLORIDE 0.9% 250 ML IV ONE (17:28)
[2019-05-07] MEDS ORDERED: IOPAMIDOL-370 100ML BTL INJ ONE (18:06)
[2019-05-07] MEDS: THIAMINE 100 MG TAB PO SCH (18:37)
[2019-05-07 18:52] LABS: Glucose,Whole Blood 113 mg/dL (75-99)
--- NOTE | 2019-05-07 19:04 | IR ---
EXAMINATION TYPE: IR IVC filter placement DATE OF EXAM: 05/07/2019 COMPARISON: NONE HISTORY: Fluoroscopy time. Fluoroscopy was provided to the referring clinician. 4 minutes of fluoroscopy time provided.
--- NOTE | 2019-05-07 20:08 | P.PN ---
Progress Note - Text Progress Note Date: 05/07/19 Presenting complaint: Tired Interval history: This patient was admitted with septic shock and UTI. Also has pulmonary embolism for which she is on eliquis. Patient is found to have some GI bleeding. Hence eliquis was held. Also underlying atrial fibrillation. Vascular surgery was consulted for Shahana filter placement. Review of systems: Was done for constitutional, cardiovascular, GI, pulmonary. relevant finding as above Active Medications Acetaminophen (Tylenol Tab) 650 mg PO Q6HR PRN PRN Reason: Mild Pain or Fever > 100.5 Last Admin: 05/07/19 06:53 Dose: 650 mg Documented by: Hydrocodone Bitart/Acetaminophen ([place] 5-325) 1 each PO Q6HR PRN PRN Reason: MODERATE Pain Last Admin: 05/07/19 18:37 Dose: 1 each Documented by: Amiodarone HCl (Cordarone) 200 mg PO BID [facility] Last Admin: 05/07/19 09:11 Dose: 200 mg Documented by: Atorvastatin Calcium (Lipitor) 40 mg PO DAILY [facility] Last Admin: 05/07/19 09:11 Dose: 40 mg Documented by: Bisacodyl (Dulcolax) 10 mg RECTAL DAILY PRN PRN Reason: Constipation Docusate Sodium (Colace) 100 mg PO BID@0800,1700 [facility] Last Admin: 05/07/19 18:22 Dose: Not Given Documented by: Dronabinol (Marinol) 2.5 mg PO AC-BID [facility] Last Admin: 05/07/19 18:37 Dose: 2.5 mg Documented by: Fluconazole (Diflucan) 100 mg PO DAILY [facility] Last Admin: 05/07/19 09:11 Dose: 100 mg Documented by: Furosemide (Lasix) 20 mg PO BID@0900,1600 [facility] Last Admin: 05/07/19 18:22 Dose: Not Given Documented by: Guaifenesin (Robitussin) 200 mg PO Q4H PRN PRN Reason: Cough Sodium Chloride (Saline 0.9%) 1,000 mls @ 20 mls/hr IV .Q24H [facility] Last Admin: 05/07/19 17:19 Dose: Not Given Documented by: Insulin Aspart (Novolog) 0 unit SQ ACHS [facility]; Protocol Last Admin: 05/07/19 18:33 Dose: Not Given Documented by: Lisinopril (Zestril) 5 mg PO BID [facility] Last Admin: 05/07/19 09:11 Dose: 5 mg Documented by: Metoprolol Tartrate (Lopressor) 25 mg PO BID [facility] Last Admin: 05/07/19 09:11 Dose: 25 mg Documented by: Miscellaneous Information (Magnesium Per Protocol) 1 each MISCELLANE DAILY PRN; Protocol PRN Reason: Per Protocol Miscellaneous Information (Potassium Per Protocol) 1 each MISCELLANE DAILY PRN; Protocol PRN Reason: Per Protocol Miscellaneous Information (Phosphorus Per Protocol) 1 each MISCELLANE DAILY PRN; Protocol PRN Reason: Per Protocol Naloxone HCl (Narcan) 0.2 mg IV Q2M PRN PRN Reason: Opioid Reversal Ondansetron HCl (Zofran) 4 mg IVP Q6HR PRN PRN Reason: Nausea And Vomiting Last Admin: 05/07/19 06:53 Dose: 4 mg Documented by: Oxybutynin Chloride (Ditropan Xl) 10 mg PO DAILY@0800 [facility] Last Admin: 05/07/19 09:11 Dose: 10 mg Documented by: Pantoprazole Sodium (Protonix) 40 mg PO DAILY [facility] Last Admin: 05/07/19 09:11 Dose: 40 mg Documented by: Pentoxifylline (Trental) 400 mg PO TID@0800,1200,1700 [facility] Last Admin: 05/07/19 18:37 Dose: 400 mg Documented by: Sertraline HCl (Zoloft) 25 mg PO DAILY [facility] Last Admin: 05/07/19 09:11 Dose: 25 mg Documented by: Simethicone (Mylicon Chew) 80 mg PO TID@0800,1200,1700 [facility] Last Admin: 05/07/19 18:37 Dose: 80 mg Documented by: Sodium Biphosphate/Sodium Phosphate (Fleet Adult) 133 ml RECTAL DAILY PRN PRN Reason: Constipation Sodium Chloride (Saline Flush) 20 ml IV Q4HR PRN PRN Reason: PICC Line Sodium Chloride (Saline Flush) 10 ml IV WEEKLY [facility] Last Admin: 05/07/19 09:12 Dose: 10 ml Documented by: Sodium Chloride (Saline Flush) 10 ml IV Q4HR PRN PRN Reason: PICC Line Spironolactone (Aldactone) 25 mg PO DAILY [facility] Last Admin: 05/07/19 09:12 Dose: 25 mg Documented by: Thiamine HCl (Vitamin B-1) 100 mg PO DAILY@1700 [facility] Last Admin: 05/07/19 18:37 Dose: 100 mg Documented by: Ursodiol (Actigall) 300 mg PO BID@0800,2100 [facility] Last Admin: 05/07/19 09:12 Dose: 300 mg Documented by: On examination: VITAL SIGNS: 97.4, 77, 18, 101/59, 96% room air GENERAL APPEARANCE: Lying in bed, not in distress. HEENT: Normal external appearance of nose and ear. Oral cavity normal EYES: Pupils equal. Conjunctiva normal. NECK: JVD not raised. Mass not palpable. RESPIRATORY: Respiratory effort increased. Lungs decreased breath sounds CARDIOVASCULAR: Heart sounds muffled. Edema present. ABDOMEN: Soft. Liver and spleen not palpable. No tenderness. No mass palpable. Dermatological-wound on the medial aspect of the right foot as well as on the medial and lateral aspect of the left foot with some slough tissue PSYCHIATRY: Alert and oriented x3. Mood and affect normal. INVESTIGATIONS, reviewed in the clinical context: White count 7.9 hemoglobin 10.6 potassium 3.3 creatinine 0.4 Doppler ultrasound of lower extremities-no obvious evidence of DVT CT abdomen and pelvis with contrast-bilateral pleural effusion, atelectasis, large pulmonary embolism on the right side, some cardiomegaly, some pancreatic calcification cortical thinning with simple-appearing thin-walled cyst in both kidneys Assessment: -Acute UTI with severe sepsis, septic shock, with Kate positive in the urine, POA -Persistent atrial fibrillation -Bilateral lower extremity foot wounds secondary to diabetes -AICD -Acute GI bleed in a patient taking eliquis -Metabolic toxic encephalopathy multifactorial -Chronic congestive heart failure from systolic dysfunction EF 3035% -Diabetes mellitus type 2 -Chronic pancreatitis -GERD -Hyperlipidemia -Essential hypertension -Acute blood loss anemia from GI tract -Morbid obesity BMI 50.1 -DO NOT RESUSCITATE Plan: Continue current medication treatment plan. Oral anticoagulation has been held. Saw the patient this afternoon. Pending an IVC filter placement. No GI bleeding today as per the nurse. Discussed with Dr. Lowery who was covering my patient while I was off. In his opinion patient can resume anticoagulation if no further bleeding.
[2019-05-07 21:10] LABS: Glucose,Whole Blood 134 mg/dL (75-99)
[2019-05-07] MEDS: LACTATED RINGERS 1,000 ML IV SCH (21:50)
[2019-05-07 22:21] LABS: Anisocytosis Slight; HCT 30.9 % (34.0-46.0); HGB 9.8 gm/dL (11.4-16.0); Hypochromasia Slight; MCH 29.4 pg (25.0-35.0); MCHC 31.8 g/dL (31.0-37.0); MCV 92.6 fL (80.0-100.0); Mean Platelet Volume 7.3; Platelet Count 238 k/uL (150-450); RBC 3.34 m/uL (3.80-5.40); RDW 18.3 % (11.5-15.5); WBC 12.4 k/uL (3.8-10.6)
--- NOTE | 2019-05-07 22:50 | PN ---
PROGRESS NOTE DATE OF SERVICE: 05/07/2019. REASON FOR FOLLOWUP: 1. Urinary tract infection. 2. Bilateral diabetic foot wounds. 3. Sacral pressure ulcer. INTERVAL HISTORY: The patient is currently afebrile. The patient has been breathing comfortably. Denies having any chest pain or shortness of breath. Some abdominal discomfort but no diarrhea. PHYSICAL EXAMINATION: Her blood pressure is 102/63 with a pulse of 72, temperature 97.4. She is 95% on room air. General description is an elderly female lying in bed in no distress. RESPIRATORY SYSTEM: Unlabored breathing with decreased breath sounds at the base. HEART: S1, S2. Regular rate and rhythm. ABDOMEN: Soft. No tenderness. EXTREMITIES: Bilateral feet currently dressed up. No obvious drainage. LABS: Hemoglobin is 10.6, white count 7.9, BUN of 12, creatinine 0.40. DIAGNOSTIC IMPRESSION/PLAN: 1. Patient admitted to hospital with sepsis with evidence of urinary tract infection. cultures with donte. Patient is currently covered with Diflucan. 2. Bilateral diabetic foot wounds with no cellulitis. Local wound care to continue with [facility]. 3. Sacral pressure ulcer. Local wound care with an Aquacel Silver dressing. Continue with supportive care. MMODL / IJN: [id number] /
[2019-05-07] MEDS: LACTATED RINGERS 250 ML IV SCH (22:55)
--- NOTE | 2019-05-08 00:08 | PCN ---
PROCEDURE NOTE PREOPERATIVE DIAGNOSIS: Bilateral pulmonary embolism with gastrointestinal bleed. PROCEDURE PERFORMED: 1. Inferior vena cavogram. 2. Placement of a Albert Tulip placed infrarenal. DESCRIPTION OF PROCEDURE: This patient was brought to the worm farm laborer. The left groin was prepped and drapes applied in usual sterile manner. 1% lidocaine was infiltrated into the left groin. Ultrasound-guided micropuncture into the right common femoral vein. Micropuncture guidewire was passed and 4 -Swiss sheath were advanced on the top of the guidewire. Then we passed a regular guidewire which was parked above the renal vein and 5-Swiss sheath were advanced on the top of the guidewire. Then we placed a pigtail catheter at the vena cava and vena cavogram was performed. Both the renal veins were visualized. After that, we placed a sheath on the top of the guidewire, which the marker was visualized at the renal level. After that, we placed a Tulip Albert filter through the sheath which was deployed below the renal vein and it was in good position. Sheath was removed. Pressure held. Patient tolerated the procedure well. MMODL / IJN: [id number] /
[2019-05-08] MEDS: HYDROcodone/APAP 5-325MG 1 EACH TAB PO PRN ×3 (03:04→17:08)
[2019-05-08] MEDS: LACTATED RINGERS 250 ML IV SCH ×11 (03:05→13:50)
[2019-05-08 06:04] LABS: Glucose,Whole Blood 88 mg/dL (75-99)
[2019-05-08] MEDS: INSULIN ASPART (NovoLOG) 100 UNIT/ML VIAL SQ SCH ×4 (06:15→21:24)
[2019-05-08] MEDS: DRONABINOL 2.5 MG CAP PO SCH ×2 (06:43→17:05)
[2019-05-08] MEDS: LACTATED RINGERS 1,000 ML IV SCH ×2 (06:44→16:51)
[2019-05-08] MEDS: OXYBUTYNIN 10 MG TAB.ER.24 PO SCH (08:04)
[2019-05-08] MEDS: SIMETHICONE 80 MG CHEWABLE PO SCH ×3 (08:04→17:05)
[2019-05-08] MEDS: PENTOXIFYLLINE 400 MG TABLET.ER PO SCH ×3 (08:04→17:04)
[2019-05-08] MEDS: DOCUSATE 100 MG CAP PO SCH ×2 (08:04→17:04)
[2019-05-08] MEDS: AMIODARONE 200 MG TAB PO SCH (08:05)
[2019-05-08] MEDS: FLUCONAZOLE 100 MG TAB PO SCH (08:05)
[2019-05-08] MEDS: ATORVASTATIN 40 MG TAB PO SCH (08:05)
[2019-05-08] MEDS: FUROSEMIDE 20 MG TAB PO SCH ×2 (08:05→17:04)
[2019-05-08] MEDS: URSODIOL 300 MG CAP PO SCH ×2 (08:05→21:24)
[2019-05-08] MEDS: PANTOPRAZOLE 40 MG TABLET PO SCH (08:06)
[2019-05-08] MEDS: METOPROLOL TARTRATE 25 MG TAB PO SCH ×2 (08:06→20:11)
[2019-05-08] MEDS: SPIRONOLACTONE 25 MG TAB PO SCH (08:06)
[2019-05-08] MEDS: SERTRALINE 25 MG TAB PO SCH (08:06)
[2019-05-08] MEDS: LISINOPRIL 5 MG TAB PO SCH (08:06)
[2019-05-08 11:41] LABS: Glucose,Whole Blood 135 mg/dL (75-99)
--- NOTE | 2019-05-08 12:46 | P.PN ---
Subjective Progress Note Date: 05/08/19 Is is an 83-year-old female with known history of chronic persistent atrial fibrillation, CAD not amendable for surgical intervention, severe PVD, severe ischemic cardiomyopathy status post seed implant, she initially presented to the hospital with urosepsis. Patient has been off her Eliquis for the past couple of days because of potential placement of a [place] filter, patient had some GI bleeding and for this reason a [place] filter is going to be placed. All confirm whether or not the [place] will be placed today, denies patient does need to resume anticoagulation. This morning she was complaining of some discomfort in her left lower abdominal region, denies any palpitations, and her breathing overall has been stable. 05/08/2019 Patient was seen and examined this morning, comfortable overall. Underwent placement of the [place] filter yesterday. Blood pressure 90/60 with a heart rate in the 80s, 93% on room air. Continue the Eliquis 5 mg one tablet by mouth twice a day, decrease dose of amiodarone to 200 mg daily. Continue the rest of the patient's medication. Objective - Vital Signs Vital signs: Vital Signs Temp 97.5 F L 05/08/19 11:02 Pulse 63 05/08/19 11:02 Resp 16 05/08/19 11:02 BP 86/49 05/08/19 12:32 Pulse Ox 96 05/08/19 11:02 Intake & Output 05/07/19 05/08/19 05/08/19 18:59 06:59 18:59 Intake Total 110 930 680 Output Total 750 10 10 Balance -640 920 670 Weight 124.3 kg 75.5 kg Intake: IV 110 80 200 Invasive Line 4 60 80 40 Sodium Chloride 0.9% 1, 160 000 ml @ 20 mls/hr IV . Q24H [facility] Rx#:[id number] Intake, IV Titration 850 Amount Lactated Ringers 1,000 ml 600 @ 100 mls/hr IV .Q10H [facility] Rx#:[id number] Lactated Ringers 250 ml @ 250 999 mls/hr IV .Q16M [facility] Rx#:[id number] Oral 0 480 Output: Urine 750 Stool 10 10 Other: Voiding Method Bedpan Bedpan Bedpan # Voids 3 2 # Bowel Movements 1 2 - Exam PHYSICAL EXAMINATION: HEENT: Head is atraumatic, normocephalic. Pupils equal, round. Neck is supple. There is no elevated jugular venous pressure. HEART EXAMINATION: Heart sounds irregularly irregular, S1 and S2. No rub. CHEST EXAMINATION: Lungs are clear to auscultation and precussion. No chest wall tenderness is noted on palpation or with deep breathing. ABDOMEN: Soft, mild left upper quadrant tenderness . Bowel sounds are heard. No organomegaly noted. EXTREMITIES: Evidence of mild peripheral edema. Dressings noted bilaterally with chronic stasis. - Labs CBC & Chem 7: 05/07/19 22:07 05/07/19 05:37 Labs: Abnormal Lab Results - Last 24 Hours (Table) 05/07/19 05/07/19 05/07/19 Range/Units 18:31 21:08 22:07 WBC 12.4 H (3.8-10.6) k/uL RBC 3.34 L (3.80-5.40) m/uL Hgb 9.8 L (11.4-16.0) gm/dL Hct 30.9 L (34.0-46.0) % RDW 18.3 H (11.5-15.5) % POC Glucose (mg/dL) 113 H 134 H (75-99) mg/dL 05/08/19 Range/Units 11:29 WBC (3.8-10.6) k/uL RBC (3.80-5.40) m/uL Hgb (11.4-16.0) gm/dL Hct (34.0-46.0) % RDW (11.5-15.5) % POC Glucose (mg/dL) 135 H (75-99) mg/dL Assessment and Plan Plan: Assessment: #1 pulmonary embolism #2 persistent chronic atrial fibrillation with controlled ventricular response, anticoagulated #3 severe cardiomyopathy, status post ICD implant #4 history of CAD #5 peripheral vascular disease #6 hyperlipidemia #7 urosepsis and septic shock, resolved Plan The patient's Eliquis has been resumed, we'll decrease the dose of amiodarone to 200 mg daily. From our perspective she may be able to be discharged once cleared by primary. She can follow-up with her astronaut mission specialist post discharge. DNP note has been reviewed, I agree with a documented findings and plan of care. Patient was seen and examined.
[2019-05-08] MEDS: SODIUM CHLORIDE 0.9% 1,000 ML IV SCH (13:26)
[2019-05-08 16:33] LABS: Glucose,Whole Blood 134 mg/dL (75-99)
[2019-05-08] MEDS: APIXABAN 5 MG TAB PO SCH (17:04)
[2019-05-08] MEDS: THIAMINE 100 MG TAB PO SCH (17:05)
[2019-05-08] MEDS: ONDANSETRON 4 MG/2 ML VIAL IVP PRN (18:12)
[2019-05-08 20:47] LABS: Glucose,Whole Blood 180 mg/dL (75-99)
--- NOTE | 2019-05-08 22:45 | P.PN ---
Progress Note - Text Progress Note Date: 05/08/19 Presenting complaint: Tired Interval history: This patient was admitted with septic shock and UTI. Also has pulmonary embolism for which she is on eliquis. Patient is found to have some GI bleeding. Hence eliquis was held. Also underlying atrial fibrillation. Also had the [place] filter placement. Today-sitting up in a bit. Did tolerate her meals. Blood pressures been running low. Chronic lower extremity wounds. Did get IV fluids yesterday for low blood pressure.. Review of systems: Was done for constitutional, cardiovascular, GI, pulmonary. relevant finding as above Active Medications Acetaminophen (Tylenol Tab) 650 mg PO Q6HR PRN PRN Reason: Mild Pain or Fever > 100.5 Last Admin: 05/07/19 06:53 Dose: 650 mg Documented by: Hydrocodone Bitart/Acetaminophen (Frank[place] 5-325) 1 each PO Q6HR PRN PRN Reason: MODERATE Pain Last Admin: 05/08/19 17:08 Dose: 1 each Documented by: Amiodarone HCl (Cordarone) 200 mg PO DAILY [facility] Apixaban (Eliquis) 5 mg PO BID@0800,1700 [facility] Last Admin: 05/08/19 17:04 Dose: 5 mg Documented by: Atorvastatin Calcium (Lipitor) 40 mg PO DAILY [facility] Last Admin: 05/08/19 08:05 Dose: 40 mg Documented by: Bisacodyl (Dulcolax) 10 mg RECTAL DAILY PRN PRN Reason: Constipation Docusate Sodium (Colace) 100 mg PO BID@0800,1700 [facility] Last Admin: 05/08/19 17:04 Dose: 100 mg Documented by: Dronabinol (Marinol) 2.5 mg PO AC-BID [facility] Last Admin: 05/08/19 17:05 Dose: 2.5 mg Documented by: Fluconazole (Diflucan) 100 mg PO DAILY [facility] Last Admin: 05/08/19 08:05 Dose: 100 mg Documented by: Furosemide (Lasix) 20 mg PO BID@0900,1600 [facility] Last Admin: 05/08/19 17:04 Dose: 20 mg Documented by: Guaifenesin (Robitussin) 200 mg PO Q4H PRN PRN Reason: Cough Sodium Chloride (Saline 0.9%) 1,000 mls @ 20 mls/hr IV .Q24H [facility] Last Admin: 05/08/19 13:26 Dose: Not Given Documented by: Lactated Ringer's (Lactated Ringers) 1,000 mls @ 100 mls/hr IV .Q10H [facility] Last Admin: 05/08/19 16:51 Dose: Not Given Documented by: Insulin Aspart (Novolog) 0 unit SQ ACHS [facility]; Protocol Last Admin: 05/08/19 21:24 Dose: 2 unit Documented by: Lisinopril (Zestril) 5 mg PO DAILY [facility] Metoprolol Tartrate (Lopressor) 25 mg PO BID [facility] Last Admin: 05/08/19 20:11 Dose: Not Given Documented by: Miscellaneous Information (Magnesium Per Protocol) 1 each MISCELLANE DAILY PRN; Protocol PRN Reason: Per Protocol Miscellaneous Information (Potassium Per Protocol) 1 each MISCELLANE DAILY PRN; Protocol PRN Reason: Per Protocol Miscellaneous Information (Phosphorus Per Protocol) 1 each MISCELLANE DAILY PRN; Protocol PRN Reason: Per Protocol Naloxone HCl (Narcan) 0.2 mg IV Q2M PRN PRN Reason: Opioid Reversal Ondansetron HCl (Zofran) 4 mg IVP Q6HR PRN PRN Reason: Nausea And Vomiting Last Admin: 05/08/19 18:12 Dose: 4 mg Documented by: Oxybutynin Chloride (Ditropan Xl) 10 mg PO DAILY@0800 [facility] Last Admin: 05/08/19 08:04 Dose: 10 mg Documented by: Pantoprazole Sodium (Protonix) 40 mg PO DAILY [facility] Last Admin: 05/08/19 08:06 Dose: 40 mg Documented by: Pentoxifylline (Trental) 400 mg PO TID@0800,1200,1700 [facility] Last Admin: 05/08/19 17:04 Dose: 400 mg Documented by: Sertraline HCl (Zoloft) 25 mg PO DAILY [facility] Last Admin: 05/08/19 08:06 Dose: 25 mg Documented by: Simethicone (Mylicon Chew) 80 mg PO TID@0800,1200,1700 [facility] Last Admin: 05/08/19 17:05 Dose: 80 mg Documented by: Sodium Biphosphate/Sodium Phosphate (Fleet Adult) 133 ml RECTAL DAILY PRN PRN Reason: Constipation Sodium Chloride (Saline Flush) 20 ml IV Q4HR PRN PRN Reason: PICC Line Sodium Chloride (Saline Flush) 10 ml IV WEEKLY [facility] Last Admin: 05/07/19 09:12 Dose: 10 ml Documented by: Sodium Chloride (Saline Flush) 10 ml IV Q4HR PRN PRN Reason: PICC Line Spironolactone (Aldactone) 25 mg PO DAILY [facility] Last Admin: 05/08/19 08:06 Dose: 25 mg Documented by: Thiamine HCl (Vitamin B-1) 100 mg PO DAILY@1700 [facility] Last Admin: 05/08/19 17:05 Dose: 100 mg Documented by: Ursodiol (Actigall) 300 mg PO BID@0800,2100 [facility] Last Admin: 05/08/19 21:24 Dose: 300 mg Documented by: On examination: VITAL SIGNS: 97.8, 75, 16, 93 x 50, 91% room air GENERAL APPEARANCE: Sitting up in bed, eating. HEENT: Normal external appearance of nose and ear. Oral cavity normal EYES: Pupils equal. Conjunctiva normal. NECK: JVD not raised. Mass not palpable. RESPIRATORY: Respiratory effort increased. Lungs decreased breath sounds CARDIOVASCULAR: Heart sounds muffled. Edema present. ABDOMEN: Soft. Liver and spleen not palpable. No tenderness. No mass palpable. Dermatological-wound on the medial aspect of the right foot as well as on the medial and lateral aspect of the left foot with some slough tissue PSYCHIATRY: Alert and oriented x3. Mood and affect normal. INVESTIGATIONS, reviewed in the clinical context: Accu-Cheks noted Previous tests White count 7.9 hemoglobin 10.6 potassium 3.3 creatinine 0.4 Doppler ultrasound of lower extremities-no obvious evidence of DVT CT abdomen and pelvis with contrast-bilateral pleural effusion, atelectasis, large pulmonary embolism on the right side, some cardiomegaly, some pancreatic calcification cortical thinning with simple-appearing thin-walled cyst in both kidneys Assessment: -Acute UTI with severe sepsis, septic shock, with Kate positive in the urine, POA -Hypotension multifactorial -Persistent atrial fibrillation -Bilateral lower extremity foot wounds secondary to diabetes -AICD -Acute GI bleed in a patient taking eliquis -Metabolic toxic encephalopathy multifactorial -Chronic congestive heart failure from systolic dysfunction EF 3035% -Diabetes mellitus type 2 -Chronic pancreatitis -GERD -Hyperlipidemia -Essential hypertension -Acute blood loss anemia from GI tract -Morbid obesity BMI 50.1 -DO NOT RESUSCITATE Plan: Patient blood pressure is running rather low. We'll hold off the GABI inhibitor. Patient did get some fluids yesterday. Prognosis guarded. We will watch her for another 24 hours and because of low blood pressure. We will cut back in the afternoon dose of Lasix.
--- NOTE | 2019-05-09 05:33 | PN ---
PROGRESS NOTE DATE OF SERVICE: 05/08/2019 REASON FOR FOLLOWUP: 1. Urinary tract infection .. 2. Bilateral feet diabetic foot wound. 3. Stage II sacral pressure ulcer, no cellulitis. INTERVAL HISTORY: The patient is currently afebrile. Patient seems to have problem with low blood pressure and is being managed by the admitting cardiology service. The patient denies having any chest pain. No shortness of breath or cough. No abdominal pain or diarrhea. PHYSICAL EXAMINATION: On examination, blood pressure is 93/50 with a pulse of 75, temperature of 97.8. She is 91% on room air. General description is an elderly female lying in bed in no distress. RESPIRATORY SYSTEM: Unlabored breathing, clear to auscultation anteriorly. HEART: S1, S2. Regular rate and rhythm. ABDOMEN: Soft. No tenderness. Bilateral feet wounds currently dressed up,. No obvious drainage on the dressing. Sacral wound with no significant slough tissue or surrounding cellulitis. LABS: Hemoglobin 9.8, white count 12.4. DIAGNOSTIC IMPRESSION AND PLAN: 1. Patient with a urinary tract infection with Kate albicans. To continue with Diflucan to finish a 7-day course of therapy. 2. Bilateral diabetic foot wound. No cellulitis. Local wound care with Medihoney. 3. Stage II sacral wound. Local wound care with Aquacel Silver dressing. Keep the area off the pressure. MMODL / IJN: [id number] /
[2019-05-09 06:25] LABS: Glucose,Whole Blood 99 mg/dL (75-99)
[2019-05-09] MEDS: INSULIN ASPART (NovoLOG) 100 UNIT/ML VIAL SQ SCH ×2 (06:31→11:52)
[2019-05-09] MEDS: DRONABINOL 2.5 MG CAP PO SCH (06:37)
[2019-05-09] MEDS: PANTOPRAZOLE 40 MG TABLET PO SCH (08:56)
[2019-05-09] MEDS: FLUCONAZOLE 100 MG TAB PO SCH (08:56)
[2019-05-09] MEDS: URSODIOL 300 MG CAP PO SCH (08:56)
[2019-05-09] MEDS: APIXABAN 5 MG TAB PO SCH (08:56)
[2019-05-09] MEDS: SERTRALINE 25 MG TAB PO SCH (08:56)
[2019-05-09] MEDS: ATORVASTATIN 40 MG TAB PO SCH (08:56)
[2019-05-09] MEDS: DOCUSATE 100 MG CAP PO SCH (08:56)
[2019-05-09] MEDS: OXYBUTYNIN 10 MG TAB.ER.24 PO SCH (08:57)
[2019-05-09] MEDS: SIMETHICONE 80 MG CHEWABLE PO SCH ×2 (08:57→11:53)
[2019-05-09] MEDS: PENTOXIFYLLINE 400 MG TABLET.ER PO SCH ×2 (08:57→11:53)
[2019-05-09] MEDS: SPIRONOLACTONE 25 MG TAB PO SCH (08:58)
[2019-05-09] MEDS: HYDROcodone/APAP 5-325MG 1 EACH TAB PO PRN (08:58)
[2019-05-09] MEDS ORDERED: METOPROLOL TARTRATE 12.5 MG TAB PO SCH ×2 (09:00→21:00)
[2019-05-09] MEDS ORDERED: FUROSEMIDE 20 MG TAB PO SCH (09:00)
[2019-05-09] MEDS ORDERED: AMIODARONE 200 MG TAB PO SCH (09:00)
[2019-05-09] MEDS ORDERED: LISINOPRIL 5 MG TAB PO SCH (09:00)
[2019-05-09] MEDS: ONDANSETRON 4 MG/2 ML VIAL IVP PRN (09:09)
[2019-05-09 11:33] LABS: Glucose,Whole Blood 135 mg/dL (75-99)
[2019-05-09 11:46] VITALS: BP 105/56; PULSE 89; RESP 18; TEMP 97
--- NOTE | 2019-05-09 12:28 | P.DS ---
Providers Date of admission: 04/28/19 19:19 Expected date of discharge: 05/09/19 Attending physician: Gabino Rogers Consults: 04/28/19 23:32 Consult Physician Urgent Consulting Provider: Praneeth Hinds Consult Reason/Comments: icu management Do you want consulting provider notified?: Yes 04/30/19 10:42 Consult Physician Routine Consulting Provider: Alejandro Cheng Consult Reason/Comments: foot ulcers Do you want consulting provider notified?: Yes 05/01/19 10:42 Consult Physician Routine Consulting Provider: John Paul Tong Consult Reason/Comments: afib Do you want consulting provider notified?: Yes 05/05/19 15:15 Consult Physician Routine Consulting Provider: Edgard Oquendo Consult Reason/Comments: Possible IVC filter, bilat pe Do you want consulting provider notified?: Yes Primary care physician: Farrukh Kebede Hospital Course: Hospital course: This patient was admitted with septic shock and UTI. Also has pulmonary embolism for which she is on eliquis. Patient is found to have some GI bleeding. Hence eliquis was held. Also underlying atrial fibrillation. Also had the [place] filter placement. Patient is sitting up in the bed. Stable. Tolerating a diet. Understands the guarded prognosis. Eliquis was resumed. No further GI bleed. Consultations: Dr. cheng from ID Dr. oTng from cardiology Dr. Luciano from vascular Dr. Cameron from pulmonary On examination: VITAL SIGNS: 97, 89, 18, 105/56, 93% room air GENERAL APPEARANCE: Sitting up in bed, eating. HEENT: Normal external appearance of nose and ear. Oral cavity normal EYES: Pupils equal. Conjunctiva normal. NECK: JVD not raised. Mass not palpable. RESPIRATORY: Respiratory effort increased. Lungs decreased breath sounds CARDIOVASCULAR: Heart sounds muffled. Edema present. ABDOMEN: Soft. Liver and spleen not palpable. No tenderness. No mass palpable. Dermatological-wound on the medial aspect of the right foot as well as on the medial and lateral aspect of the left foot with some slough tissue PSYCHIATRY: Alert and oriented x3. Mood and affect normal. Previous tests White count 12.4 hemoglobin 9.8 creatinine 0.4 Doppler ultrasound of lower extremities-no obvious evidence of DVT CT abdomen and pelvis with contrast-bilateral pleural effusion, atelectasis, large pulmonary embolism on the right side, some cardiomegaly, some pancreatic calcification cortical thinning with simple-appearing thin-walled cyst in both kidneys Assessment: -Acute UTI with severe sepsis, septic shock, with Kate positive in the urine, POA -Hypotension multifactorial, improved, improved -Persistent atrial fibrillation -Bilateral lower extremity foot wounds secondary to diabetes -AICD -Acute GI bleed in a patient taking eliquis -Metabolic toxic encephalopathy multifactorial -Chronic congestive heart failure from systolic dysfunction EF 30-35% -Diabetes mellitus type 2 -Chronic pancreatitis -GERD -Hyperlipidemia -Essential hypertension -Acute blood loss anemia from GI tract -obesity BMI 31 -DO NOT RESUSCITATE Disposition: [facility] Patient Condition at Discharge: Stable Plan - Discharge Summary Discharge Rx Participant: No New Discharge Prescriptions: New Spironolactone [Aldactone] 12.5 mg PO DAILY tab Amiodarone [Cordarone] 200 mg PO DAILY tab Fluconazole [Diflucan] 100 mg PO DAILY #7 tab Atorvastatin [Lipitor] 40 mg PO DAILY tab Metoprolol Tartrate [Lopressor] 12.5 mg PO TID tab Sertraline [Zoloft] 25 mg PO DAILY tab Continue Pentoxifylline 400 mg PO TID@0800,1200,1700 metFORMIN HCL 1,000 mg PO BID@0800,1700 Vit C/E/Zn/Coppr/Lutein/Zeaxan [Preservision Areds 2 Softgel] 1 cap PO DAILY@1700 Tolterodine Tartrate [Detrol LA] 4 mg PO DAILY@0800 Thiamine [Vitamin B-1] 100 mg PO DAILY@1700 Ergocalciferol [Vitamin D2 (DRISDOL)] 50,000 unit PO WE Omeprazole 40 mg PO DAILY@0800 Magnesium Oxide [Mag-Ox] 400 mg PO BID@0800,1700 Vitamin B Complex 1 cap PO DAILY@1700 Diclofenac Sodium Gel [Voltaren Gel] 2 gm TOPICAL QID tube Sertraline HCl [Zoloft] 25 mg PO DAILY Collagenase [Santyl] 1 applic TOPICAL Q24H Ondansetron HCl [Zofran] 4 mg PO QID PRN PRN Reason: Nausea Magnesium Hydroxide [Milk of Magnesia Concentrate] 30 ml PO Q48H PRN PRN Reason: Constipation Na Phos,M-B/Na Phos,Di-Ba [Fleet Adult] 1 dose RECTAL DAILY PRN PRN Reason: Constipation Simethicone 80 mg PO TID@0800,1200,1700 Bisacodyl [Dulcolax] 10 mg RECTAL DAILY PRN PRN Reason: Constipation Ursodiol 300 mg PO BID@0800,2100 Talc-Zinc Oxide Powder 81-15% 1 applic TOPICAL BID@0800,1700 Liquacel (Amino Acids) 30 ml PO BID@0800,1700 Apixaban [Eliquis] 5 mg PO BID@0800,1700 Acetaminophen Tab [Tylenol] 325 mg PO Q6HR PRN tab PRN Reason: Mild Pain Or Fever > 100.5 INSULIN ASPART (NovoLOG) [NovoLOG (formulary)] See Protocol SQ AC-TID #1 vial Midodrine HCl [ProAmantine] 2.5 mg PO BID Changed Furosemide [Lasix] 20 mg PO DAILY #0 Gabapentin [Neurontin] 100 mg PO TID@0600,1400,2100 #9 cap traMADol HCL [Ultram] 25 mg PO Q6HR PRN #8 tab PRN Reason: Severe Pain Discontinued guaiFENesin [guaiFENesin Oral Solution] 200 mg PO Q4H PRN PRN Reason: Cough Potassium Chloride ER [K-Dur 10] 10 meq PO BID@0800,1700 Metoprolol Tartrate [Lopressor] 50 mg PO BID@0800,1700 Lisinopril [Prinivil] 20 mg PO DAILY@0800 Docusate [Colace] 100 mg PO BID@0800,1700 Aspirin 81 mg PO DAILY@1700 Discharge Medication List Pentoxifylline 400 mg PO TID@0800,1200,1700 12/13/16 [History] Vit C/E/Zn/Coppr/Lutein/Zeaxan [Preservision Areds 2 Softgel] 1 cap PO NOELLE LY@1700 11/10/17 [History] metFORMIN HCL 1,000 mg PO BID@0800,1700 11/10/17 [History] Ergocalciferol [Vitamin D2 (DRISDOL)] 50,000 unit PO WE 09/25/18 [History] Magnesium Oxide [Mag-Ox] 400 mg PO BID@0800,1700 09/25/18 [History] Omeprazole 40 mg PO DAILY@0800 09/25/18 [History] Thiamine [Vitamin B-1] 100 mg PO DAILY@1700 09/25/18 [History] Tolterodine Tartrate [Detrol LA] 4 mg PO DAILY@0800 09/25/18 [History] Vitamin B Complex 1 cap PO DAILY@1700 09/25/18 [History] Diclofenac Sodium Gel [Voltaren Gel] 2 gm TOPICAL QID tube 10/08/18 [Rx] Collagenase [Santyl] 1 applic TOPICAL Q24H 10/13/18 [History] Ondansetron HCl [Zofran] 4 mg PO QID PRN 10/13/18 [History] Sertraline HCl [Zoloft] 25 mg PO DAILY 10/13/18 [History] Magnesium Hydroxide [Milk of Magnesia Concentrate] 30 ml PO Q48H PRN 11/13/18 [History] Na Phos,M-B/Na Phos,Di-Ba [Fleet Adult] 1 dose RECTAL DAILY PRN 11/13/18 [History] Simethicone 80 mg PO TID@0800,1200,1700 11/27/18 [History] Apixaban [Eliquis] 5 mg PO BID@0800,1700 04/23/19 [History] Bisacodyl [Dulcolax] 10 mg RECTAL DAILY PRN 04/23/19 [History] Liquacel (Amino Acids) 30 ml PO BID@0800,1700 04/23/19 [History] Talc-Zinc Oxide Powder 81-15% 1 applic TOPICAL BID@0800,1700 04/23/19 [History] Ursodiol 300 mg PO BID@0800,2100 04/23/19 [History] Acetaminophen Tab [Tylenol] 325 mg PO Q6HR PRN tab 04/25/19 [Rx] INSULIN ASPART (NovoLOG) [NovoLOG (formulary)] See Protocol SQ AC-TID #1 vial 04/25/19 [Rx] Midodrine HCl [ProAmantine] 2.5 mg PO BID 04/28/19 [History] Amiodarone [Cordarone] 200 mg PO DAILY tab 05/09/19 [Rx] Atorvastatin [Lipitor] 40 mg PO DAILY tab 05/09/19 [Rx] Fluconazole [Diflucan] 100 mg PO DAILY #7 tab 05/09/19 [Rx] Furosemide [Lasix] 20 mg PO DAILY #0 05/09/19 [Rx] Gabapentin [Neurontin] 100 mg PO TID@0600,1400,2100 #9 cap 05/09/19 [Rx] Metoprolol Tartrate [Lopressor] 12.5 mg PO TID tab 05/09/19 [Rx] Sertraline [Zoloft] 25 mg PO DAILY tab 05/09/19 [Rx] Spironolactone [Aldactone] 12.5 mg PO DAILY tab 05/09/19 [Rx] traMADol HCL [Ultram] 25 mg PO Q6HR PRN #8 tab 05/09/19 [Rx] Follow up Appointment(s)/Referral(s): Farrukh Kebede MD [Primary Care Provider] - 05/10/19 cardiology, [Other] - 1 Week
--- NOTE | 2019-05-09 14:25 | P.PN ---
Subjective Progress Note Date: 05/09/19 Is is an 83-year-old female with known history of chronic persistent atrial fibrillation, CAD not amendable for surgical intervention, severe PVD, severe ischemic cardiomyopathy status post seed implant, she initially presented to the hospital with urosepsis. Patient has been off her Eliquis for the past couple of days because of potential placement of a [place] filter, patient had some GI bleeding and for this reason a [place] filter is going to be placed. All confirm whether or not the [place] will be placed today, denies patient does need to resume anticoagulation. This morning she was complaining of some discomfort in her left lower abdominal region, denies any palpitations, and her breathing overall has been stable. 05/08/2019 Patient was seen and examined this morning, comfortable overall. Underwent placement of the [place] filter yesterday. Blood pressure 90/60 with a heart rate in the 80s, 93% on room air. Continue the Eliquis 5 mg one tablet by mouth twice a day, decrease dose of amiodarone to 200 mg daily. Continue the rest of the patient's medication. 05/09/2019 Patient was seen and examined today, overall she feels well, denies any dizziness or lightheadedness, breathing is stable. At 8:00 last night it was documented that her blood pressure went down to 66/30 she was asymptomatic. She was given IV fluids, her blood pressure today is 105/56. We do need to be careful with this patient not administering too many fluids as her LV function is poor, and she may go into heart failure. Her breathing today is stable. Objective - Vital Signs Vital signs: Vital Signs Temp 97.0 F L 05/09/19 11:45 Pulse 89 05/09/19 11:45 Resp 18 05/09/19 11:45 BP 105/56 05/09/19 11:45 Pulse Ox 93 L 05/09/19 11:45 Intake & Output 05/08/19 05/09/19 05/09/19 18:59 06:59 18:59 Intake Total 940 240 Output Total 10 Balance 930 240 Weight 77 kg Intake: IV 220 Invasive Line 4 60 Sodium Chloride 0.9% 1, 160 000 ml @ 20 mls/hr IV . Q24H [facility] Rx#:[id number] Oral 720 240 Output: Stool 10 Other: Voiding Method Bedpan Bedpan Bedpan Diaper # Voids 1 - Exam PHYSICAL EXAMINATION: HEENT: Head is atraumatic, normocephalic. Pupils equal, round. Neck is supple. There is no elevated jugular venous pressure. HEART EXAMINATION: Heart sounds irregularly irregular, S1 and S2. No rub. CHEST EXAMINATION: Lungs are clear to auscultation and precussion. No chest wall tenderness is noted on palpation or with deep breathing. ABDOMEN: Soft, mild left upper quadrant tenderness . Bowel sounds are heard. No organomegaly noted. EXTREMITIES: Evidence of trace peripheral edema. Dressings noted bilaterally with chronic stasis. - Labs CBC & Chem 7: 05/07/19 22:07 05/07/19 05:37 Labs: Abnormal Lab Results - Last 24 Hours (Table) 05/08/19 05/08/19 05/09/19 Range/Units 16:31 20:45 11:31 POC Glucose (mg/dL) 134 H 180 H 135 H (75-99) mg/dL Assessment and Plan Plan: Assessment: #1 pulmonary embolism #2 persistent chronic atrial fibrillation with controlled ventricular response, anticoagulated #3 severe cardiomyopathy, status post ICD implant #4 history of CAD #5 peripheral vascular disease #6 hyperlipidemia #7 urosepsis and septic shock, resolved Plan From Cardiology's perspective, we will recommend to discontinue the IV fluids. GABI inhibitor was discontinued by primary, we will continue to monitor the blood pressure, decrease metoprolol to a twice a day dose. DNP note has been reviewed, I agree with a documented findings and plan of care. Patient was seen and examined.
--- NOTE | 2019-05-09 15:49 | PN ---
PROGRESS NOTE DATE OF SERVICE: 05/09/2019 REASON FOR FOLLOWUP: 1. Urinary tract infection. 2. Bilateral diabetic foot wounds. 3. Stage II sacral pressure ulcer. INTERVAL HISTORY: The patient is currently afebrile. She was seen on rounds this morning. Overall feeling better. Breathing comfortably. No chest pain or any cough. No nausea, no vomiting, no abdominal pain or pain to the bilateral foot wound areas. PHYSICAL EXAMINATION: Blood pressure 105/56, pulse of 89, temperature of 97. She is 93% on room air. General description is an elderly female lying in bed in no distress. RESPIRATORY SYSTEM: Unlabored breathing. Clear to auscultation anteriorly. HEART: S1, S2. Regular rate and rhythm. ABDOMEN: Soft. No tenderness. Bilateral foot wounds currently dressed up. No obvious drainage on the dressings. DIAGNOSTIC IMPRESSION AND PLAN: 1. Patient with a urinary tract infection; urine with Kate albicans. Underlying UTI has been adequately treated. 2. Patient with bilateral foot wounds. Local wound care with Medihoney. 3. Stage II sacral pressure ulcer. Local wound care with Aquacel Silver dressing. Keep the area off pressure. MMODL / IJN: [id number] /
== END 2019-05-09 14:49 | DRG 853 ==
LOC: EC 16:32 → 3SCARD 19:19 → 2SICU 23:13 → 3SCARD 05-03 22:40
PROVIDERS: ADMIT Hospitalist; ATTEND Hospitalist
PROC: 02HV33Z Insertion of Infusion Device into Superior Vena Cava, Percutaneous Approach (ICD-10-PCS; 2019-04-30)
PROC: 06H03DZ Insertion of Intraluminal Device into Inferior Vena Cava, Percutaneous Approach (ICD-10-PCS; principal; 2019-05-07 16:48)
DX: A41.9 Sepsis, unspecified organism (principal); G92 Toxic encephalopathy; I26.99 Other pulmonary embolism without acute cor pulmonale; R65.21 Severe sepsis with septic shock; B37.49 Other urogenital candidiasis; D62 Acute posthemorrhagic anemia; E87.2 Acidosis; I48.1 Persistent atrial fibrillation; I50.22 Chronic systolic (congestive) heart failure; K86.1 Other chronic pancreatitis; K92.2 Gastrointestinal hemorrhage, unspecified; N17.9 Acute kidney failure, unspecified; Z68.43 Body mass index [BMI] 50.0-59.9, adult; E11.51 Type 2 diabetes mellitus with diabetic peripheral angiopathy without gangrene; E11.621 Type 2 diabetes mellitus with foot ulcer; E66.01 Morbid (severe) obesity due to excess calories; E78.5 Hyperlipidemia, unspecified; E83.42 Hypomagnesemia; E86.1 Hypovolemia; E87.6 Hypokalemia; H91.90 Unspecified hearing loss, unspecified ear; I11.0 Hypertensive heart disease with heart failure; I25.10 Atherosclerotic heart disease of native coronary artery without angina pectoris; I25.5 Ischemic cardiomyopathy; K21.9 Gastro-esophageal reflux disease without esophagitis; K59.00 Constipation, unspecified; L89.152 Pressure ulcer of sacral region, stage 2; L97.529 Non-pressure chronic ulcer of other part of left foot with unspecified severity; L97.519 Non-pressure chronic ulcer of other part of right foot with unspecified severity; R63.3 Feeding difficulties; Z51.5 Encounter for palliative care; Z66 Do not resuscitate; Z79.01 Long term (current) use of anticoagulants; Z79.82 Long term (current) use of aspirin; Z79.4 Long term (current) use of insulin; Z79.899 Other long term (current) drug therapy; Z82.49 Family history of ischemic heart disease and other diseases of the circulatory system; Z83.3 Family history of diabetes mellitus; Z85.41 Personal history of malignant neoplasm of cervix uteri; Z87.440 Personal history of urinary (tract) infections; Z87.891 Personal history of nicotine dependence; Z90.710 Acquired absence of both cervix and uterus; Z95.810 Presence of automatic (implantable) cardiac defibrillator; Z88.1 Allergy status to other antibiotic agents; Z88.5 Allergy status to narcotic agent; Z98.49 Cataract extraction status, unspecified eye; Z90.49 Acquired absence of other specified parts of digestive tract
CPT/HCPCS: 36415; 36573; 37191; 71045; 74177; 80048; 80053; 81001; 82550; 82803; 83605; 83690; 83735; 84100; 84132; 84443; 84484; 85025; 85027; 85610; 85730; 87040; 87086; 87324; 93005; 93306; 93970; 94760; 96361; 96365; 96366; 96375; 99285

== ENCOUNTER 2019-05-23 22:20 | Inpatient (IN) | payer MEDICARE, BC ==
[2019-05-23 22:25] LABS: Glucose,Whole Blood 135 mg/dL (75-99)
[2019-05-23] MEDS ORDERED: SODIUM CHLORIDE 0.9% 1,000 ML IV ONE (22:44)
[2019-05-23 23:00] LABS: Anisocytosis Slight; Basophils # (A) 0.1 k/uL (0-0.2); Basophils % (A) 0 %; Eosinophils # (A) 0.1 k/uL (0-0.7); Eosinophils % (A) 0 %; HCT 36.4 % (34.0-46.0); HGB 11.3 gm/dL (11.4-16.0); Lymphocytes # (A) 0.6 k/uL (1.0-4.8); Lymphocytes % (A) 3 %; MCH 28.8 pg (25.0-35.0); MCHC 31.1 g/dL (31.0-37.0); MCV 92.8 fL (80.0-100.0); Mean Platelet Volume 7.7; Monocytes # (A) 0.9 k/uL (0-1.0); Monocytes % (A) 5 %; Neutrophils # (A) 16.8 k/uL (1.3-7.7); Neutrophils % (A) 91 %; Platelet Count 200 k/uL (150-450); RBC 3.92 m/uL (3.80-5.40); RDW 18.1 % (11.5-15.5); WBC 18.4 k/uL (3.8-10.6)
[2019-05-23 23:09] LABS: ALT 14 U/L (9-52); AST 19 U/L (14-36); African American GFR (CKD) >90 (>60 ml/min/1.73 sqM); Albumin 2.1 g/dL (3.5-5.0); Alkaline Phosphatase 104 U/L (38-126); Anion Gap 6 mmol/L; Blood Urea Nitrogen 19 mg/dL (7-17); Calcium 8.1 mg/dL (8.4-10.2); Carbon Dioxide 26 mmol/L (22-30); Chloride 101 mmol/L (98-107); Creatine Kinase <20 U/L (30-135); Glucose 125 mg/dL (74-99); INR 1.5 (<1.2); Partial Thromboplastin Time 33.8 sec (22.0-30.0); Potassium 4.4 mmol/L (3.5-5.1); Prothrombin Time 14.9 sec (9.0-12.0); Sodium 133 mmol/L (137-145); Total Bilirubin 0.4 mg/dL (0.2-1.3); Total Protein 4.9 g/dL (6.3-8.2)
[2019-05-23 23:36] LABS: Lactic Acid, Venous 3.6 mmol/L (0.7-2.0)
--- NOTE | 2019-05-24 00:28 | CT ---
EXAM: CT Head Without Intravenous Contrast CLINICAL HISTORY: ITS.REASON CT Reason: altered mental status TECHNIQUE: Axial computed tomography images of the head/brain without intravenous contrast. CTDI is 44 mGy and DLP is 290 0 mGy-cm. This CT exam was performed using one or more of the following dose reduction techniques: automated exposure control, adjustment of the mA and/or kV according to patient size, and/or use of iterative reconstruction technique. COMPARISON: No relevant prior studies available. FINDINGS: Limitations: Limited positioning with oblique position of the head within the CT scanner. Brain: No acute intracranial hemorrhage, mass effect or edema. No evidence of acute cortical stroke. Periventricular small vessel ischemic change. No midline shift or hydrocephalus. Diffuse parenchymal atrophy. Ventricles: See above. Bones/joints: Unremarkable. No acute fracture. Soft tissues: Unremarkable. Vasculature: Atherosclerotic calcifications of the carotid siphons and vertebrobasilar arteries. Sinuses: Unremarkable as visualized. No acute sinusitis. Mastoid air cells: Visualized sinuses and mastoid air cells are clear. IMPRESSION: 1. No evidence of acute intracranial pathology. 2. Diffuse involutional changes and chronic ischemic small vessel white matter disease.
[2019-05-24] MEDS ORDERED: VANCOMYCIN IV PER PHARMACY 1 EACH MISC MISCELLANE PRN (00:37)
--- NOTE | 2019-05-24 00:47 | CT ---
EXAM: CT Angiography Chest With Intravenous Contrast CLINICAL HISTORY: ITS.REASON CT Reason: hypotension, hx pe TECHNIQUE: Axial computed tomographic angiography images of the chest with intravenous contrast. DLP [address] exam was performed using one or more of the following dose reduction techniques: automated exposure control, adjustment of the mA and/or kV according to patient size, and/or use of iterative reconstruction technique. MIP reconstructed images were created and reviewed. COMPARISON: No relevant prior studies available. FINDINGS: Pulmonary arteries: Unremarkable. No pulmonary embolism. Aorta: No acute findings. No thoracic aortic aneurysm. Lungs: See below. Pleural space: Large pleural effusions, right larger than left. Compressive atelectasis at the posterior lungs, right also greater than left. No pneumothorax. Heart: Cardiomegaly with prominent biatrial enlargement. Multivessel coronary calcifications. No significant pericardial effusion. No evidence of RV dysfunction. Bones/joints: Exuberant healing response associate with fracture of the right proximal humerus. This is incompletely imaged on this study. No dislocation. Soft tissues: Anasarca. Lymph nodes: Unremarkable. No enlarged lymph nodes. Upper abdomen: For findings below the diaphragm, please see same day CT abdomen and pelvis. IMPRESSION: 1. Large pleural effusions and cardio megaly are concerning for congestive heart failure exacerbation. 2. No PE or aortic dissection.
[2019-05-24 00:49] LABS: Appearance,Urine Clear (Clear); Bilirubin,Urine Negative (Negative); Blood,Urine Negative (Negative); Color,Urine Yellow; Glucose,Urine (UA) Negative (Negative); Ketones,Urine Negative (Negative); Leukocyte Esterase,Urine Negative (Negative); Nitrite,Urine Negative (Negative); Protein,Urine Negative (Negative); Specific Gravity,Urine 1.014 (1.001-1.035); Urobilinogen,Urine <2.0 mg/dL (<2.0)
[2019-05-24] MEDS: PIPERACILLIN-TAZOBACTAM 3.375 GM in SODIUM CHLORIDE 0.9% 100 ML IVPB SCH ×3 (00:49→17:53)
--- NOTE | 2019-05-24 01:02 | CT ---
EXAM: CT Abdomen and Pelvis With Intravenous Contrast CLINICAL HISTORY: ITS.REASON CT Reason: ams, hypotension TECHNIQUE: Axial computed tomography images of the abdomen and pelvis with intravenous contrast. CTDI is 44 mGy and DLP is 2920 mGy-cm. This CT exam was performed using one or more of the following dose reduction techniques: automated exposure control, adjustment of the mA and/or kV according to patient size, and/or use of iterative reconstruction technique. COMPARISON: No relevant prior studies available. FINDINGS: Lung bases: Findings above the diaphragm, please see same day chest CT. ABDOMEN: Liver: Unremarkable. No mass. Gallbladder and bile ducts: Prior to this study. Pneumobilia. Portal vein is patent. No calcified stones. No ductal dilation. Pancreas: Unremarkable. No mass. No ductal dilation. Spleen: Geographic hypoattenuation involving the spleen. Consider recent splenic infarct. Adrenals: Unremarkable. No mass. Kidneys and ureters: Large exophytic left renal cyst, posterolaterally arising from the lower pole level. There is bilateral renal scarring and several other smaller renal cysts and too small to characterize hypodensities bilaterally. No obstructive uropathy. Stomach and bowel: No colitis, diverticulitis, appendicitis or bowel obstruction. PELVIS: Appendix: See above. Bladder: Unremarkable. No mass. Reproductive: Unremarkable as visualized. ABDOMEN and PELVIS: Intraperitoneal space: No free air or free fluid. Bones/joints: No acute fracture. No dislocation. Soft tissues: Large midline abdominal wall hematoma measuring 9.1 x 4. 9 cm. Anasarca. Vasculature: Infrarenal IVC filter in place. Dense calcifications of the splenic arteries, iliac arteries, and aorta without aneurysm. Lymph nodes: Unremarkable. No enlarged lymph nodes. IMPRESSION: 1. Large midline abdominal wall hematoma measuring 9.1 x 4.9 cm. 2. Geographic hypoattenuation involving the spleen. Consider recent splenic infarct.
[2019-05-24 01:06] LABS: Glucose,Whole Blood 50 mg/dL (75-99)
[2019-05-24] MEDS ORDERED: DEXTROSE 50% SYRINGE 50 ML IVP STA ×2 (01:15→04:07)
--- NOTE | 2019-05-24 01:50 | ED ---
Altered Mental Status HPI - General Source: EMS Mode of arrival: EMS Limitations: no limitations <Rachel Winter - Last Filed: 05/24/19 03:29> <Jules Martinez - Last Filed: 05/24/19 05:42> - General Chief Complaint: Altered Mental Status Stated Complaint: Evaluation - History of Present Illness Initial Comments: The patient is an 83-year-old female with past medical history of diabetes, A. fib and congestive heart failure who presents to the emergency department with hypoglycemia. EMS says provide the history as the patient is very weak. They state that it does not appear that the patient ate dinner. They were then called to the nursing facility for hypoglycemia. It is noted in the patient's chart that her sugar was 43. They did provide her with glucagon injections. Her sugar then only came up to 51. They were unable to establish an IV. EMS arrived on scene and were able to give the patient an amp of D50. She then had improvement in her blood sugars. They state that she became acutely alert and was sitting up in bed. They took her vitals are all stable. He did talk to the admitting doctor there requested the patient be transferred to the hospital for evaluation. The patient does arrive to n[facility] and is hypotensive. No family is at bedside. The patient cannot report any history. Did review the patient's recor d. She was recently hospitalized within the past month for sepsis from a urinary tract infection. The patient also has lower extremity chronic diabetic wounds. The remainder of the HPI is limited because the patient's current condition (Rachel Winter) - Related Data Home Medications Medication Instructions Recorded Confirmed Pentoxifylline 400 mg PO TID@0800,1200,1700 12/13/16 05/23/19 Vit C/E/Zn/Coppr/Lutein/Zeaxan 1 cap PO BID 11/10/17 05/23/19 [Preservision Areds 2 Softgel] metFORMIN HCL 1,000 mg PO BID@0800,1700 11/10/17 05/23/19 Ergocalciferol [Vitamin D2 50,000 unit PO WE 09/25/18 05/23/19 (DRISDOL)] Magnesium Oxide [Mag-Ox] 400 mg PO BID@0800,1700 09/25/18 05/23/19 Thiamine [Vitamin B-1] 100 mg PO DAILY@1700 09/25/18 05/23/19 Tolterodine Tartrate [Detrol LA] 4 mg PO DAILY@0800 09/25/18 05/23/19 Vitamin B Complex 1 cap PO DAILY@1700 09/25/18 05/23/19 Collagenase [Santyl] 1 applic TOPICAL DAILY 10/13/18 05/23/19 Ondansetron HCl [Zofran] 4 mg PO QID PRN 10/13/18 05/23/19 Magnesium Hydroxide [Milk of 30 ml PO Q48H PRN 11/13/18 05/23/19 Magnesia Concentrate] Na Phos,M-B/Na Phos,Di-Ba [Fleet 133 ml RECTAL DAILY PRN 11/13/18 05/23/19 Adult] Simethicone 80 mg PO TID@0800,1200,1700 11/27/18 05/23/19 Apixaban [Eliquis] 5 mg PO BID@0800,1700 04/23/19 05/23/19 Bisacodyl [Dulcolax] 10 mg RECTAL DAILY PRN 04/23/19 05/23/19 Liquacel (Amino Acids) 30 ml PO BID@0800,1700 04/23/19 05/23/19 Talc-Zinc Oxide Powder 81-15% 1 applic TOPICAL BID@0800,1700 04/23/19 05/23/19 Ursodiol 300 mg PO BID@0800,2100 04/23/19 05/23/19 Midodrine HCl [ProAmantine] 2.5 mg PO BID 04/28/19 05/23/19 Acetaminophen Tab [Tylenol] 325 mg PO Q6HR PRN 05/23/19 05/23/19 Collagenase [Santyl] 1 applic TOPICAL DAILY PRN 05/23/19 05/23/19 Esomeprazole Magnesium [NexIUM] 40 mg PO DAILY 05/23/19 05/23/19 Glucerna Shake 1 can PO TID 05/23/19 05/23/19 Menthol [Biofreeze] 1 applic TOPICAL DAILY PRN 05/23/19 05/23/19 Metoprolol Tartrate [Lopressor] 12.5 mg PO TID 05/23/19 05/23/19 Potassium Chloride ER [K-Dur 10] 10 meq PO DAILY 05/23/19 05/23/19 clonazePAM [KlonoPIN] 0.5 mg PO BID 05/23/19 05/23/19 Previous Rx's Medication Instructions Recorded Diclofenac Sodium Gel [Voltaren 2 gm TOPICAL QID tube 10/08/18 Gel] INSULIN ASPART (NovoLOG) [NovoLOG See Protocol SQ AC-TID #1 vial 04/25/19 (formulary)] Amiodarone [Cordarone] 200 mg PO DAILY tab 05/09/19 Atorvastatin [Lipitor] 40 mg PO DAILY tab 05/09/19 Furosemide [Lasix] 20 mg PO DAILY #0 05/09/19 Gabapentin [Neurontin] 100 mg PO TID@0600,1400,2100 #9 cap 05/09/19 Sertraline [Zoloft] 25 mg PO DAILY tab 05/09/19 Spironolactone [Aldactone] 12.5 mg PO DAILY tab 05/09/19 traMADol HCL [Ultram] 25 mg PO Q6HR PRN #8 tab 05/09/19 Allergies Allergy/AdvReac Type Severity Reaction Status Date / Time levofloxacin [From Levaquin] Allergy Mild Rash/Hives Verified 05/23/19 22:25 morphine AdvReac Rapid Verified 05/23/19 22:25 Heart Rate Review of Systems ROS Other: All systems not noted in ROS Statement are negative. <Rachel Winter - Last Filed: 05/24/19 03:29> ROS Other: All systems not noted in ROS Statement are negative. <Jules Martinez - Last Filed: 05/24/19 05:42> ROS Statement: Those systems with pertinent positive or pertinent negative responses have been documented in the HPI. Past Medical History Past Medical History: Atrial Fibrillation, Coronary Artery Disease (CAD), Cancer, Diabetes Mellitus, GERD/Reflux, Hearing Disorder / Deafness, Hyperlipidemia, Hypertension, Osteoarthritis (OA), Skin Disorder Additional Past Medical History / Comment(s): Coronary artery disease, congestion heart failure with an ejection fraction of 35-40%, history of AICD placement, history of chronic atrial fibrillation, diabetes mellitus, diabetic ulcers in the feet bilaterally, chronic infected diabetic wounds, recurrent UTI, hypertension, impaired hearing, hyperlipidemia, acid reflux, history of cervical cancer, history of diverticulosis/diverticulitis, history of right arm fracture, history of chronic pancreatitis, history of gallstones, severe peripheral vascular disease, history of cutaneous fungal infection/Kate, usp r esident and the patient resides at [facility]. History of Any Multi-Drug Resistant Organisms: ESBL Date of last positivie culture/infection: 01/23/19 ESBL E.coli MDRO Source:: Urine Past Surgical History: AICD, Bowel Resection, Cholecystectomy, Heart Catheterization, Hysterectomy, Orthopedic Surgery Additional Past Surgical History / Comment(s): AICD defibulator 09-15-17, LT ROTATOR CUFF X2, BUNIONECTOMY JACQUELINE,, JACQUELINE BREAST LUMPECTOMIES-BOTH NEG,, X2 ERCP, RT HAND SX PINS PLACED-BUT SINCE REMOVED, CATARACTS. 12/01/17 picc line inserted- since removed Past Anesthesia/Blood Transfusion Reactions: No Reported Reaction Type of Cardiac Device: AICD Device Placement Date:: 09-15-17 Past Psychological History: No Psychological Hx Reported Smoking Status: Former smoker Past Alcohol Use History: None Reported Past Drug Use History: None Reported - Past Family History Mother Family Medical History: No Reported History Additional Family Medical History / Comment(s): HEART DISEASE runs in the patient's family. Daughter is healthy at this point in time. has been . Father Family Medical History: Coronary Artery Disease (CAD), Diabetes Mellitus <Rachel Winter - Last Filed: 05/24/19 03:29> General Exam Limitations: no limitations <Rachel Winter - Last Filed: 05/24/19 03:29> Course <Jules Martinez - Last Filed: 05/24/19 05:42> Vital Signs 05/23/19 05/24/19 05/24/19 22:32 00:30 00:50 Temperature Pulse Rate 66 70 87 Respiratory 20 16 11 L Rate Blood Pressure 72/39 84/49 97/59 O2 Sat by Pulse 98 94 L 96 Oximetry 05/24/19 05/24/19 05/24/19 02:52 03:00 03:46 Temperature Pulse Rate 66 59 L 63 Respiratory 18 18 18 Rate Blood Pressure 76/52 97/63 96/69 O2 Sat by Pulse 96 97 98 Oximetry 05/24/19 05/24/19 04:36 05:12 Temperature 98.8 F Pulse Rate 63 66 Respiratory 18 19 Rate Blood Pressure 81/43 131/69 O2 Sat by Pulse 96 98 Oximetry - Reevaluation(s) Reevaluation #1: 05/24/19 05:39 Dr. Winter requested that I place a central line for this patient, which I did per the procedure note, with no complications. I was subsequently informed that she had discussed placing internal jugular line. I was not informed of this and had placed line in the left femoral area. I did offer to change this but the family refused. In addition the patients family refused a fecal management system when I was about to have this applied for the patient as a means of decreasing potential infection. (Jules Martinez) Procedures - Central Line Placement Left Femoral Consent Obtained: written consent Patient Placed on Monitor/Pulse Ox: Yes MD Prep: mask, gown, gloves Central Line Prep: Chlorhexidine scrub, sterile drapes applied Local Anesthesia Used: Lidocaine 1% Ultrasound Used for Placement: Yes Central Line Lumen Inserted: triple Bloods Obtained for Lab: Yes Central Line Position: good blood return, all ports aspirated, flushed, capped, sutured in place with nylon Dressing Applied: Tegaderm Patient Tolerated Procedure: well Complications: none <Jules Martinez - Last Filed: 05/24/19 05:42> Medical Decision Making - Lab Data Result diagrams: 05/23/19 22:47 05/23/19 22:47 <Rachel Winter - Last Filed: 05/24/19 03:29> - Lab Data Result diagrams: 05/23/19 22:47 05/23/19 22:47 <Jules Martinez - Last Filed: 05/24/19 05:42> - Medical Decision Making Upon arrival the patient is placed in room 4. She is hooked up to continuous pulse ox and cardiac monitoring. We did repeat an Accu-Chek which demonstrates the patient's blood glucose to be 135. She is easily arousable upon verbal stimuli however she appears to weak to answer questions. She is hypotensive. I did provide the patient with a liter bolus of normal saline. I did attempt to call the family multiple times. It was reported from EMS to the daughter was on her way to the hospital. I did call all 3 next of kin. I eventually received a call back in January do arrive to the emergency department. They state the patient has not been eating recently. They do agree to laboratory studies and imaging. Does have a history of PE I did do a CT of the chest, abdomen and pelvis. I also did a CAT scan of the patient's brain. Upon review of the results the patient does have an elevated lactic acid of 3.6 with blood cell count is 18.4. CT of the brain demonstrates no acute findings. CT of abdomen and pelvis reveals bilateral pleural effusions with the right being greater than the left. Patient also has a large cardiac silhouette. Signs of volume overload. CT of the abdomen and pelvis demonstrates an anterior wall hematoma. I did discuss results with family. The patient once again does have a drop in her blood sugar to 50. Because of this I did initiate the patient on a D5 drip. Blood cultures were obtained. The patient was started on Zosyn and Vanco. I am concerned that the white blood cell count is coming from the patient's lower extremity wounds. I discussed the results with family. As patient does remain hypotensive I did recommend treatment with pressors. Family reports the patient is a DO NOT RESUSCITATE. They do not want the patient have any chest compressions or intubation. No cardioversion. I discussed pressors with the patient. They're okay with medication administration however refusing central line. He states that the patient has previously been in the ICU and was receiving pressors through a peripheral IV. They do consent to this. They also consent to BiPAP. Because of the patient's recurrent hypoglycemia and hypotension I did recommend ICU admission. I did call discuss case with Dr. Cohen who accepted admission of the patient. He did agree to peripheral vasopressor administration. The patient was admitted to Dr. Rogers. She is remaining in critical but stable condition and awaiting a bed in the unit (Rachel Winter) - Lab Data Lab Results 05/23/19 05/23/19 05/23/19 Range/Units 22:23 22:47 22:47 WBC 18.4 H (3.8-10.6) k/uL RBC 3.92 (3.80-5.40) m/uL Hgb 11.3 L (11.4-16.0) gm/dL Hct 36.4 (34.0-46.0) % MCV 92.8 (80.0-100.0) fL MCH 28.8 (25.0-35.0) pg MCHC 31.1 (31.0-37.0) g/dL RDW 18.1 H (11.5-15.5) % Plt Count 200 (150-450) k/uL Neutrophils % 91 % Lymphocytes % 3 % Monocytes % 5 % Eosinophils % 0 % Basophils % 0 % Neutrophils # 16.8 H (1.3-7.7) k/uL Lymphocytes # 0.6 L (1.0-4.8) k/uL Monocytes # 0.9 (0-1.0) k/uL Eosinophils # 0.1 (0-0.7) k/uL Basophils # 0.1 (0-0.2) k/uL Anisocytosis Slight PT (9.0-12.0) sec INR (<1.2) APTT (22.0-30.0) sec Sodium 133 L (137-145) mmol/L Potassium 4.4 (3.5-5.1) mmol/L Chloride 101 (98-107) mmol/L Carbon Dioxide 26 (22-30) mmol/L Anion Gap 6 mmol/L BUN 19 H (7-17) mg/dL Creatinine 0.60 (0.52-1.04) mg/dL Est GFR (CKD-EPI)AfAm >90 (>60 ml/min/1.73 sqM) Est GFR (CKD-EPI)NonAf 85 (>60 ml/min/1.73 sqM) Glucose 125 H (74-99) mg/dL POC Glucose (mg/dL) 135 H (75-99) mg/dL POC Glu [employer] Instructor ID Ninfa Brooks Lactic Ac Sepsis Rflx Plasma Lactic Acid Lawrence (0.7-2.0) mmol/L Calcium 8.1 L (8.4-10.2) mg/dL Total Bilirubin 0.4 (0.2-1.3) mg/dL AST 19 (14-36) U/L ALT 14 (9-52) U/L Alkaline Phosphatase 104 (38-126) U/L Ammonia (<30) umol/L Creatine Kinase <20 L (30-135) U/L Troponin I (0.000-0.034) ng/mL NT-Pro-B Natriuret Pep pg/mL Total Protein 4.9 L (6.3-8.2) g/dL Albumin 2.1 L (3.5-5.0) g/dL Urine Color Urine Appearance (Clear) Urine pH (5.0-8.0) Ur Specific [place] (1.001-1.035) Urine Protein (Negative) Urine Glucose (UA) (Negative) Urine Ketones (Negative) Urine Blood (Negative) Urine Nitrite (Negative) Urine Bilirubin (Negative) Urine Urobilinogen (<2.0) mg/dL Ur Leukocyte Esterase (Negative) 05/23/19 05/23/19 05/23/19 Range/Units 22:47 22:47 22:47 WBC (3.8-10.6) k/uL RBC (3.80-5.40) m/uL Hgb (11.4-16.0) gm/dL Hct (34.0-46.0) % MCV (80.0-100.0) fL MCH (25.0-35.0) pg MCHC (31.0-37.0) g/dL RDW (11.5-15.5) % Plt Count (150-450) k/uL Neutrophils % % Lymphocytes % % Monocytes % % Eosinophils % % Basophils % % Neutrophils # (1.3-7.7) k/uL Lymphocytes # (1.0-4.8) k/uL Monocytes # (0-1.0) k/uL Eosinophils # (0-0.7) k/uL Basophils # (0-0.2) k/uL Anisocytosis PT 14.9 H (9.0-12.0) sec INR 1.5 H (<1.2) APTT 33.8 H (22.0-30.0) sec Sodium (137-145) mmol/L Potassium (3.5-5.1) mmol/L Chloride (98-107) mmol/L Carbon Dioxide (22-30) mmol/L Anion Gap mmol/L BUN (7-17) mg/dL Creatinine (0.52-1.04) mg/dL Est GFR (CKD-EPI)AfAm (>60 ml/min/1.73 sqM) Est GFR (CKD-EPI)NonAf (>60 ml/min/1.73 sqM) Glucose (74-99) mg/dL POC Glucose (mg/dL) (75-99) mg/dL POC Glu [employer] Instructor ID Lactic Ac Sepsis Rflx Plasma Lactic Acid Lawrence 3.6 H* (0.7-2.0) mmol/L Calcium (8.4-10.2) mg/dL Total Bilirubin (0.2-1.3) mg/dL AST (14-36) U/L ALT (9-52) U/L Alkaline Phosphatase (38-126) U/L Ammonia 42 H (<30) umol/L Creatine Kinase (30-135) U/L Troponin I <0.012 (0.000-0.034) ng/mL NT-Pro-B Natriuret Pep pg/mL Total Protein (6.3-8.2) g/dL Albumin (3.5-5.0) g/dL Urine Color Urine Appearance (Clear) Urine pH (5.0-8.0) Ur Specific [place] (1.001-1.035) Urine Protein (Negative) Urine Glucose (UA) (Negative) Urine Ketones (Negative) Urine Blood (Negative) Urine Nitrite (Negative) Urine Bilirubin (Negative) Urine Urobilinogen (<2.0) mg/dL Ur Leukocyte Esterase (Negative) 05/23/19 05/23/19 05/24/19 Range/Units 22:47 23:38 00:23 WBC (3.8-10.6) k/uL RBC (3.80-5.40) m/uL Hgb (11.4-16.0) gm/dL Hct (34.0-46.0) % MCV (80.0-100.0) fL MCH (25.0-35.0) pg MCHC (31.0-37.0) g/dL RDW (11.5-15.5) % Plt Count (150-450) k/uL Neutrophils % % Lymphocytes % % Monocytes % % Eosinophils % % Basophils % % Neutrophils # (1.3-7.7) k/uL Lymphocytes # (1.0-4.8) k/uL Monocytes # (0-1.0) k/uL Eosinophils # (0-0.7) k/uL Basophils # (0-0.2) k/uL Anisocytosis PT (9.0-12.0) sec INR (<1.2) APTT (22.0-30.0) sec Sodium (137-145) mmol/L Potassium (3.5-5.1) mmol/L Chloride (98-107) mmol/L Carbon Dioxide (22-30) mmol/L Anion Gap mmol/L BUN (7-17) mg/dL Creatinine (0.52-1.04) mg/dL Est GFR (CKD-EPI)AfAm (>60 ml/min/1.73 sqM) Est GFR (CKD-EPI)NonAf (>60 ml/min/1.73 sqM) Glucose (74-99) mg/dL POC Glucose (mg/dL) (75-99) mg/dL POC Glu [employer] Instructor ID Lactic Ac Sepsis Rflx Y Plasma Lactic Acid Lawrence (0.7-2.0) mmol/L Calcium (8.4-10.2) mg/dL Total Bilirubin (0.2-1.3) mg/dL AST (14-36) U/L ALT (9-52) U/L Alkaline Phosphatase (38-126) U/L Ammonia (<30) umol/L Creatine Kinase (30-135) U/L Troponin I (0.000-0.034) ng/mL NT-Pro-B Natriuret Pep 8330 pg/mL Total Protein (6.3-8.2) g/dL Albumin (3.5-5.0) g/dL Urine Color Yellow Urine Appearance Clear (Clear) Urine pH 8.0 (5.0-8.0) Ur Specific [place] 1.014 (1.001-1.035) Urine Protein Negative (Negative) Urine Glucose (UA) Negative (Negative) Urine Ketones Negative (Negative) Urine Blood Negative (Negative) Urine Nitrite Negative (Negative) Urine Bilirubin Negative (Negative) Urine Urobilinogen <2.0 (<2.0) mg/dL Ur Leukocyte Esterase Negative (Negative) 05/24/19 05/24/19 Range/Units 01:05 02:12 WBC (3.8-10.6) k/uL RBC (3.80-5.40) m/uL Hgb (11.4-16.0) gm/dL Hct (34.0-46.0) % MCV (80.0-100.0) fL MCH (25.0-35.0) pg MCHC (31.0-37.0) g/dL RDW (11.5-15.5) % Plt Count (150-450) k/uL Neutrophils % % Lymphocytes % % Monocytes % % Eosinophils % % Basophils % % Neutrophils # (1.3-7.7) k/uL Lymphocytes # (1.0-4.8) k/uL Monocytes # (0-1.0) k/uL Eosinophils # (0-0.7) k/uL Basophils # (0-0.2) k/uL Anisocytosis PT (9.0-12.0) sec INR (<1.2) APTT (22.0-30.0) sec Sodium (137-145) mmol/L Potassium (3.5-5.1) mmol/L Chloride (98-107) mmol/L Carbon Dioxide (22-30) mmol/L Anion Gap mmol/L BUN (7-17) mg/dL Creatinine (0.52-1.04) mg/dL Est GFR (CKD-EPI)AfAm (>60 ml/min/1.73 sqM) Est GFR (CKD-EPI)NonAf (>60 ml/min/1.73 sqM) Glucose (74-99) mg/dL POC Glucose (mg/dL) 50 L 101 H (75-99) mg/dL POC Glu [employer] Instructor ID Maria D Escalante Arft, Gurdeep Lactic Ac Sepsis Rflx Plasma Lactic Acid Lawrence (0.7-2.0) mmol/L Calcium (8.4-10.2) mg/dL Total Bilirubin (0.2-1.3) mg/dL AST (14-36) U/L ALT (9-52) U/L Alkaline Phosphatase (38-126) U/L Ammonia (<30) umol/L Creatine Kinase (30-135) U/L Troponin I (0.000-0.034) ng/mL NT-Pro-B Natriuret Pep pg/mL Total Protein (6.3-8.2) g/dL Albumin (3.5-5.0) g/dL Urine Color Urine Appearance (Clear) Urine pH (5.0-8.0) Ur Specific [place] (1.001-1.035) Urine Protein (Negative) Urine Glucose (UA) (Negative) Urine Ketones (Negative) Urine Blood (Negative) Urine Nitrite (Negative) Urine Bilirubin (Negative) Urine Urobilinogen (<2.0) mg/dL Ur Leukocyte Esterase (Negative) - EKG Data EKG Comments: EKG demonstrates atrial fibrillation with a rate of 93. HI interval 0 QRS 102. QTC 430. There is overall low voltage. This is compared the patient's last EKG and appears similar. (Rachel Winter) Disposition Is patient prescribed a controlled substance at d/c from ED?: No Decision to Admit Reason: Admit from EC Decision Date: 05/24/19 Decision Time: 01:50 <Rachel Winter - Last Filed: 05/24/19 03:29> <Jules Martinez - Last Filed: 05/24/19 05:42> Clinical Impression: Congestive heart failure, Atrial fibrillation, Sepsis, Diabetic foot ulcer, Hypoglycemia Disposition: ADMITTED IP TO THIS HOSP Condition: Serious
[2019-05-24] MEDS ORDERED: VANCOMYCIN 1,250 MG in SODIUM CHLORIDE 0.9% 250 ML IVPB ONE (02:00)
[2019-05-24 02:15] LABS: Glucose,Whole Blood 101 mg/dL (75-99)
[2019-05-24] MEDS ORDERED: NALOXONE 0.4 MG/ML 1 ML VIAL IV PRN (02:15)
[2019-05-24] MEDS ORDERED: COLLAGENASE 250 UNIT/GM OINTMENT 30 GM TUBE TOPICAL PRN (02:20)
[2019-05-24] MEDS: NOREPINEPHRINE 4 MG in SODIUM CHLORIDE 0.9% 250 ML IV SCH ×2 (02:46→21:27)
[2019-05-24 03:11] LABS: Glucose,Whole Blood 86 mg/dL (75-99)
[2019-05-24 03:44] LABS: Glucose,Whole Blood 60 mg/dL (75-99)
[2019-05-24 04:36] LABS: Glucose,Whole Blood 124 mg/dL (75-99)
[2019-05-24] MEDS: DEXTROSE 5%-0.9% NACL 1,000 ML IV SCH (05:08)
[2019-05-24 05:18] LABS: Glucose,Whole Blood 156 mg/dL (75-99)
[2019-05-24 06:16] LABS: Glucose,Whole Blood 127 mg/dL (75-99)
[2019-05-24 07:15] LABS: Glucose,Whole Blood 107 mg/dL (75-99)
[2019-05-24] MEDS ORDERED: SODIUM CHLORIDE 0.9% 1,000 ML IV ONE (08:08)
[2019-05-24 08:15] LABS: Anisocytosis Slight; Basophils % (A) 0 %; Eosinophils # (A) 0.1 k/uL (0-0.7); Eosinophils % (A) 0 %; HCT 34.7 % (34.0-46.0); HGB 10.9 gm/dL (11.4-16.0); Lymphocytes # (A) 0.9 k/uL (1.0-4.8); Lymphocytes % (A) 7 %; MCH 29.7 pg (25.0-35.0); MCHC 31.5 g/dL (31.0-37.0); MCV 94.1 fL (80.0-100.0); Macrocytosis Slight; Mean Platelet Volume 7.9; Monocytes # (A) 0.6 k/uL (0-1.0); Monocytes % (A) 5 %; Neutrophils # (A) 11.4 k/uL (1.3-7.7); Neutrophils % (A) 88 %; Platelet Count 186 k/uL (150-450); RBC 3.69 m/uL (3.80-5.40); RDW 19.1 % (11.5-15.5)
[2019-05-24 08:44] LABS: Glucose,Whole Blood 151 mg/dL (75-99)
[2019-05-24 08:52] LABS: African American GFR (CKD) >90 (>60 ml/min/1.73 sqM); Anion Gap 6 mmol/L; Blood Urea Nitrogen 19 mg/dL (7-17); Calcium 7.5 mg/dL (8.4-10.2); Carbon Dioxide 25 mmol/L (22-30); Chloride 103 mmol/L (98-107); Glucose 139 mg/dL (74-99); Magnesium 1.7 mg/dL (1.6-2.3); Potassium 4.7 mmol/L (3.5-5.1); Sodium 134 mmol/L (137-145)
[2019-05-24] MEDS ORDERED: COLLAGENASE 250 UNIT/GM OINTMENT 30 GM TUBE TOPICAL SCH (09:00)
[2019-05-24 10:35] LABS: Glucose,Whole Blood 112 mg/dL (75-99)
--- NOTE | 2019-05-24 11:17 | US ---
EXAMINATION TYPE: US chest DATE OF EXAM: 05/24/2019 COMPARISON: CT 05/23/2019 CLINICAL HISTORY: Markings for thoracentesis by pulmonary staff. Pleural effusion, exam done portable in ICU TECHNIQUE: Targeted ultrasound of the posterior lower bilateral hemithoraces EXAM MEASUREMENTS: Right Pleural Effusion pocket size: 11.5 cm Right skin surface to fluid distance: 2.5 cm Left Pleural Effusion pocket size: 9.1 cm Left skin surface to fluid distance: 4.4 cm Difficult and limited study due to immobile patient Right side MARKED for possible thoracentesis outside the dept. Left side MARKED for possible thoracentesis outside the dept. Pulmonologists are able to review the images in the patient?s EMR. IMPRESSIONS: Bilateral pleural effusions
--- NOTE | 2019-05-24 12:13 | ECHOF ---
Referral Reason:LV function MEASUREMENTS -------- HEIGHT: 167.6 cm WEIGHT: 68.0 kg BP: 90/62 RVIDd: 3.5 cm (< 3.3) IVSd: 1.3 cm (0.6 - 1.1) LVIDd: 4.3 cm (3.9 - 5.3) LVPWd: 1.3 cm (0.6 - 1.1) IVSs: 1.4 cm LVIDs: 3.2 cm LVPWs: 1.6 cm LA Diam: 5.3 cm (2.7 - 3.8) LAESV Index (A-L): 45.42 ml/m Ao Diam: 3.2 cm (2.0 - 3.7) AV Cusp: 1.7 cm (1.5 - 2.6) MV EXCURSION: 16.486 mm (> 18.000) MV EF SLOPE: 94 mm/s (70 - 150) EPSS: 1.1 cm MV E Geovani: 0.78 m/s MV DecT: 181 ms MV A Geovani: 0.30 m/s MV E/A Ratio: 2.61 AV maxP.84 mmHg AV meanP.40 mmHg RAP: 5.00 mmHg RVSP: 36.03 mmHg FINDINGS -------- Paced rhythm. This was a technically adequate study. The left ventricular size is normal. There is mild concentric left ventricular hypertrophy. Overa ll left ventricular systolic function is moderate-severely impaired with, an EF between 30 - 35 %. The right ventricle is mildly enlarged. LA is severely dilated >40 ml/m2 The right atrium is normal in size. Interatrial and interventricular septum intact. There is mild aortic valve sclerosis. The mitral valve leaflets are mildly thickened. Mild mitral annular calcification present. Mild m itral regurgitation is present. Mild tricuspid regurgitation present. There is mild pulmonary hypertension. The right ventricular systolic pressure, as measured by Doppler, is 36.03mmHg. The pulmonic valve was not well visualized. The aortic root size is normal. Normal inferior vena cava with normal inspiratory collapse consistent with estimated right atrial pre ssure of 5 mmHg. There is no pericardial effusion. Pleural Effusion with Fibrin. CONCLUSIONS -------- 1. Paced rhythm. 2. This was a technically adequate study. 3. The left ventricular size is normal. 4. There is mild concentric left ventricular hypertrophy. 5. Overall left ventricular systolic function is moderate-severely impaired with, an EF between 30 - 35 %. 6. The right ventricle is mildly enlarged. 7. LA is severely dilated >40 ml/m2 8. The right atrium is normal in size. 9. Interatrial and interventricular septum intact. 10. There is mild aortic valve sclerosis. 11. The mitral valve leaflets are mildly thickened. 12. Mild mitral annular calcification present. 13. Mild mitral regurgitation is present. 14. Mild tricuspid regurgitation present. 15. There is mild pulmonary hypertension. 16. The right ventricular systolic pressure, as measured by Doppler, is 36.03mmHg. 17. The pulmonic valve was not well visualized. 18. The aortic root size is normal. 19. Normal inferior vena cava with normal inspiratory collapse consistent with estimated right atrial pressure of 5 mmHg. 20. There is no pericardial effusion. 21. Pleural Effusion with Fibrin. INDUSTRIAL ACCOUNTANT: Vanessa Ashley RDCS
--- NOTE | 2019-05-24 12:29 | P.CNPUL ---
History of Present Illness Consult date: 05/24/19 Requesting physician: Gabino Rogers Reason for consult: pleural effusion Chief complaint: altered mental status History of present illness: this is an 83-year-old female with history of multiple medical problems including chronic atrial fibrillation, type 2 diabetes,coronary artery disease, hypertension, LV dysfunction with ejection fraction of 35%, previous AICD placement, diabetic ulcers in both feet bilaterally, recurrent urinary tract infections, previous ESBL urinary tract infection, cervical cancer, severe peripheral vessel occlusive disease, patient is a care home patient, brought in yesterday mostly with complaints of mental status change, patient was noted to be confused, weak, did not eat her dinner, and she was noted to have hypoglycemia with blood sugar about 43. Patient was given glucagon injection by the care home staff, her sugar came up to 51, and IV could not be established. EMS arrived to the scene, and she was given 1 amp of D50. Her blood sugar improved, patient became more alert, and arrangements were made to transfer the patient to the hospital ER. Upon arrival to the ER, patient was noted to be hypotensive, apparently CODE STATUS was discussed with the patient, and it was confirmed to be DO NOT RESUSCITATE. Initially the family declined having a central line placement, however as there was extreme difficulty in establishing a peripheral IV access, finally the daughter agreed to a central line which was placed by the ER physician in the left groin. Patient had a chest x-ray which showed significant pleural effusion bilaterally. And a CT of the chest read as no evidence of pulmonary embolism, however as I reviewed the CT of the chest, discussed the findings with Dr. 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 It is similar to previous CT done on her last admission. Patient has been on Eliquis for DVT and pulmonary embolism. And supposedly compliant with it. In addition the CT of the chest showed significant bilateral pleural effusions right more so than left, and this was confirmed by ultrasound today. Patient was admitted to the ICU but she did not require any norepinephrine. She was given few fluid boluses in the ER, and her blood pressure seems to be stable at this point. She was placed on vancomycin and Levaquin empirically. 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 History of Any Multi-Drug Resistant Organisms: ESBL Date of last positivie culture/infection: 01/23/19 ESBL E.coli MDRO Source:: Urine Past Surgical History: AICD, Bowel Resection, Cholecystectomy, Heart Catheterization, Hysterectomy, Orthopedic Surgery Additional Past Surgical History / Comment(s): AICD defibulator 09-15-17, LT ROTATOR CUFF X2, BUNIONECTOMY JACQUELINE,, JACQUELINE BREAST LUMPECTOMIES-BOTH NEG,, X2 ERCP, RT HAND SX PINS PLACED-BUT SINCE REMOVED, CATARACTS. 12/01/17 picc line inserted- since removed Past Anesthesia/Blood Transfusion Reactions: No Reported Reaction Type of Cardiac Device: AICD Device Placement Date:: 09-15-17 Past Psychological History: No Psychological Hx Reported Additional Psychological History / Comment(s): PT [facility] IN [facility]. PT USES [employer]. Smoking Status: Former smoker Past Alcohol Use History: None Reported Additional Past Alcohol Use History / Comment(s): Smoked sporadically from 1964 till 1967 Past Drug Use History: None Reported - Past Family History Mother Family Medical History: No Reported History Additional Family Medical History / Comment(s): HEART DISEASE runs in the patient's family. Daughter is healthy at this point in time. has been . Father Family Medical History: Coronary Artery Disease (CAD), Diabetes Mellitus Medications and Allergies Home Medications Medication Instructions Recorded Confirmed Type Pentoxifylline 400 mg PO TID@0800,1200,1700 12/13/16 05/23/19 History Vit C/E/Zn/Coppr/Lutein/Zeaxan 1 cap PO BID 11/10/17 05/23/19 History [Preservision Areds 2 Softgel] metFORMIN HCL 1,000 mg PO BID@0800,1700 11/10/17 05/23/19 History Ergocalciferol [Vitamin D2 50,000 unit PO WE 09/25/18 05/23/19 History (DRISDOL)] Magnesium Oxide [Mag-Ox] 400 mg PO BID@0800,1700 09/25/18 05/23/19 History Thiamine [Vitamin B-1] 100 mg PO DAILY@1700 09/25/18 05/23/19 History Tolterodine Tartrate [Detrol LA] 4 mg PO DAILY@0800 09/25/18 05/23/19 History Vitamin B Complex 1 cap PO DAILY@1700 09/25/18 05/23/19 History Diclofenac Sodium Gel [Voltaren 2 gm TOPICAL QID tube 10/08/18 05/23/19 Rx Gel] Collagenase [Santyl] 1 applic TOPICAL DAILY 10/13/18 05/23/19 History Ondansetron HCl [Zofran] 4 mg PO QID PRN 10/13/18 05/23/19 History Magnesium Hydroxide [Milk of 30 ml PO Q48H PRN 11/13/18 05/23/19 History Magnesia Concentrate] Na Phos,M-B/Na Phos,Di-Ba [Fleet 133 ml RECTAL DAILY PRN 11/13/18 05/23/19 History Adult] Simethicone 80 mg PO TID@0800,1200,1700 11/27/18 05/23/19 History Apixaban [Eliquis] 5 mg PO BID@0800,1700 04/23/19 05/23/19 History Bisacodyl [Dulcolax] 10 mg RECTAL DAILY PRN 04/23/19 05/23/19 History Liquacel (Amino Acids) 30 ml PO BID@0800,1700 04/23/19 05/23/19 History Talc-Zinc Oxide Powder 81-15% 1 applic TOPICAL BID@0800,1700 04/23/19 05/23/19 History Ursodiol 300 mg PO BID@0800,2100 04/23/19 05/23/19 History INSULIN ASPART (NovoLOG) [NovoLOG See Protocol SQ AC-TID #1 vial 04/25/19 05/23/19 Rx (formulary)] Midodrine HCl [ProAmantine] 2.5 mg PO BID 04/28/19 05/23/19 History Amiodarone [Cordarone] 200 mg PO DAILY tab 05/09/19 05/23/19 Rx Atorvastatin [Lipitor] 40 mg PO DAILY tab 05/09/19 05/23/19 Rx Furosemide [Lasix] 20 mg PO DAILY #0 05/09/19 05/23/19 Rx Gabapentin [Neurontin] 100 mg PO TID@0600,1400,2100 #9 cap 05/09/19 05/23/19 Rx Sertraline [Zoloft] 25 mg PO DAILY tab 05/09/19 05/23/19 Rx Spironolactone [Aldactone] 12.5 mg PO DAILY tab 05/09/19 05/23/19 Rx traMADol HCL [Ultram] 25 mg PO Q6HR PRN #8 tab 05/09/19 05/23/19 Rx Acetaminophen Tab [Tylenol] 325 mg PO Q6HR PRN 05/23/19 05/23/19 History Collagenase [Santyl] 1 applic TOPICAL DAILY PRN 05/23/19 05/23/19 History Esomeprazole Magnesium [NexIUM] 40 mg PO DAILY 05/23/19 05/23/19 History Glucerna Shake 1 can PO TID 05/23/19 05/23/19 History Menthol [Biofreeze] 1 applic TOPICAL DAILY PRN 05/23/19 05/23/19 History Metoprolol Tartrate [Lopressor] 12.5 mg PO TID 05/23/19 05/23/19 History Potassium Chloride ER [K-Dur 10] 10 meq PO DAILY 05/23/19 05/23/19 History clonazePAM [KlonoPIN] 0.5 mg PO BID 05/23/19 05/23/19 History Allergies Allergy/AdvReac Type Severity Reaction Status Date / Time levofloxacin [From Levaquin] Allergy Mild Rash/Hives Verified 05/23/19 22:25 morphine AdvReac Rapid Verified 05/23/19 22:25 Heart Rate Physical Exam Vitals: Vital Signs Temp Pulse Resp BP Pulse Ox 05/24/19 11:00 96.8 F L 65 11 L 104/61 100 05/24/19 10:45 73 17 94/69 100 05/24/19 10:30 70 22 104/63 99 05/24/19 10:15 70 14 88/53 97 05/24/19 10:00 65 16 78/58 96 05/24/19 09:45 66 15 80/51 05/24/19 09:30 62 15 90/62 97 05/24/19 09:15 82 21 85/41 97 05/24/19 09:00 65 15 102/55 98 05/24/19 08:45 65 14 108/57 05/24/19 08:30 63 15 104/54 82 L 05/24/19 08:15 61 14 76/50 05/24/19 08:00 96.4 F L 70 14 106/55 97 05/24/19 07:45 96.4 F L 62 14 97/64 97 05/24/19 07:30 62 14 110/57 05/24/19 07:15 35.7 F L 68 13 120/58 97 05/24/19 06:45 70 19 120/56 05/24/19 06:30 35.2 F L 66 21 122/56 95 05/24/19 05:12 98.8 F 66 19 131/69 98 05/24/19 04:36 63 18 81/43 96 05/24/19 03:46 63 18 96/69 98 05/24/19 03:00 59 L 18 97/63 97 05/24/19 02:52 66 18 76/52 96 05/24/19 00:50 87 11 L 97/59 96 05/24/19 00:30 70 16 84/49 94 L 05/23/19 22:32 66 20 72/39 98 Intake and Output 05/23/19 05/24/19 05/24/19 22:59 06:59 14:59 Intake Total 324.22 1180 Output Total 300 560 Balance 24.22 620 Intake: IV 270 1180 Dextrose 5%-0.9% NaCl 1, 20 80 000 ml @ 20 mls/hr IV . Q24H [facility] Rx#:[id number] Piperacillin-Tazobactam 3 100 .375 gm In Sodium Chloride 0.9% 100 ml @ 25 mls/hr IVPB Q8H [facility] Rx#: [id number] Sodium Chloride 0.9% 1, 1000 000 ml @ 999 mls/hr IV . Q1H1M [facility] Rx#:[id number] Vancomycin 1,250 mg In 250 Sodium Chloride 0.9% 250 ml @ 125 mls/hr IVPB ONCE ONE Rx#:[id number] Intake, IV Titration 54.22 Amount Norepinephrine 4 mg In 54.22 Sodium Chloride 0.9% 250 ml @ 0.05 MCG/KG/MIN 12. 961 mls/hr IV .[id number] [facility] Rx#:[id number] Output: Urine 300 560 Other: Voiding Method Indwelling Catheter # Bowel Movements 1 Weight 68.039 kg Physical Exam: Revealed 83-year-old female in no distress. arousable, cannot give adequate history. Head: Atraumatic, normocephalic. HEENT:[Neck is supple.] [No neck masses.] [No thyromegaly.] [No JVD.] PERRLA, EOMI, no icterus. Chest: [Symmetrical chest expansion, diminished breath sounds and dullness at the bases bilaterally. Cardiac Exam: Irregular irregular rhythm. [Normal S1 and S2, no S3 gallop, 2/6 systolic murmur thought the precordium.] Abdomen: [obese,Soft, nontender, no megaly, no rebound, no guarding, normal bowel sounds.] Extremities: [No clubbing, 1+ bipedal edema, no cyanosis, multiple foot ulcers were noted,on both feet. wrapped with sterile dressing, been evaluated in the past by vascular surgery and infectious disease for her ulcers. Neurological Exam: arousable, follows instruction, cannot give much history, no gross focal deficit is otherwise Psychiatric: Normal mood, affect and poor mental status. Musculoskeletal: No gross focal deficit. No limitation in range of motion skin: As noted above under extremities. Multiple deep ulcers noted on both feet bilaterally. Results - Laboratory Findings CBC and BMP: 05/24/19 07:55 05/24/19 07:55 PT/INR, D-dimer PT 14.9 sec (9.0-12.0) H 05/23/19 22:47 INR 1.5 (<1.2) H 05/23/19 22:47 D-Dimer 1.26 mg/L FEU (<0.60) H 05/24/19 08:47 Abnormal lab findings: Abnormal Labs 05/23/19 05/23/19 05/23/19 22:23 22:47 22:47 WBC 18.4 H RBC Hgb 11.3 L RDW 18.1 H Neutrophils # 16.8 H Lymphocytes # 0.6 L PT INR APTT D-Dimer Sodium 133 L BUN 19 H Glucose 125 H POC Glucose (mg/dL) 135 H Plasma Lactic Acid Lawrence Calcium 8.1 L Ammonia Creatine Kinase <20 L Total Protein 4.9 L Albumin 2.1 L 05/23/19 05/23/19 05/24/19 22:47 22:47 01:05 WBC RBC Hgb RDW Neutrophils # Lymphocytes # PT 14.9 H INR 1.5 H APTT 33.8 H D-Dimer Sodium BUN Glucose POC Glucose (mg/dL) 50 L Plasma Lactic Acid Lawrence 3.6 H* Calcium Ammonia 42 H Creatine Kinase Total Protein Albumin 05/24/19 05/24/19 05/24/19 02:12 03:42 04:26 WBC RBC Hgb RDW Neutrophils # Lymphocytes # PT INR APTT D-Dimer Sodium BUN Glucose POC Glucose (mg/dL) 101 H 60 L 124 H Plasma Lactic Acid Lawrence Calcium Ammonia Creatine Kinase Total Protein Albumin 05/24/19 05/24/19 05/24/19 04:38 05:15 06:02 WBC RBC Hgb RDW Neutrophils # Lymphocytes # PT INR APTT D-Dimer Sodium BUN Glucose POC Glucose (mg/dL) 156 H 127 H Plasma Lactic Acid Lawrence 2.5 H* Calcium Ammonia Creatine Kinase Total Protein Albumin 05/24/19 05/24/19 05/24/19 07:11 07:55 07:55 WBC 13.0 H RBC 3.69 L Hgb 10.9 L RDW 19.1 H Neutrophils # 11.4 H Lymphocytes # 0.9 L PT INR APTT D-Dimer Sodium 134 L BUN 19 H Glucose 139 H POC Glucose (mg/dL) 107 H Plasma Lactic Acid Lawrence Calcium 7.5 L Ammonia Creatine Kinase Total Protein Albumin 05/24/19 05/24/19 05/24/19 07:57 08:47 10:33 WBC RBC Hgb RDW Neutrophils # Lymphocytes # PT INR APTT D-Dimer 1.26 H Sodium BUN Glucose POC Glucose (mg/dL) 151 H 112 H Plasma Lactic Acid Lawrence Calcium Ammonia Creatine Kinase Total Protein Albumin - Diagnostic Findings Chest x-ray: image reviewed CT scan - chest: image reviewed Additional studies: as noted in HPI. Assessment and Plan Assessment: impression: 1 recurrent episodes of hypoglycemia, most likely secondary to poor oral intake, and the patient is on medications for diabetes, given to her at the care home. 2 acute metabolic encephalopathy secondary to hypoglycemia. 3 recurrent episodes of urinary tract infection secondary to ESBL E. coli and pseudomonas aeruginosa. 3 bilateral pleural effusions secondary to systolic congestive heart failure. 4 history of pulmonary embolism documented on previous admission, and noted on CT of the chest on this admission. 5 chronic atrial fibrillation 6 LV dysfunction with ejection fraction of 35% and previous AICD placement 7 underlying coronary artery disease 8 diabetic foot ulcers 9 type 2 diabetes 10 history of chronic pancreatitis 11 severe peripheral vessel occlusive disease involving lower extremities. 12 medical debility. Recommendation: Continue present treatment plan including antibiotics empirically, we will arrange for a right-sided thoracentesis, continue diuretics, continue cardiac meds, infectious disease consultation, continue anti-coag ablation therapy after right-sided thoracentesis will continue to follow. Prognosis remains poor and guarded. Patient remains DO NOT RESUSCITATE CODE STATUS. This is based on her previously expressed wishes and her daughter. Time with Patient: Greater than 30
[2019-05-24 12:54] LABS: Glucose,Whole Blood 94 mg/dL (75-99)
--- NOTE | 2019-05-24 14:33 | XR ---
EXAMINATION TYPE: XR chest 1V portable DATE OF EXAM: 05/24/2019 COMPARISON: Prior chest x-ray dated 05/01/2019 HISTORY: Status post right thoracentesis TECHNIQUE: Single frontal view of the chest is obtained. FINDINGS: Multiple old rib fractures are again noted in the right chest. Some improvement in aeratio n at the right lung base. No evident pneumothorax. Heart size is likely stable, patient is rotated, t here may be spinal curvature. Intracardiac defibrillator lead is stable. There is persistent density left lung base with obscured left hemidiaphragm. Probable posttraumatic change to the proximal right humerus is stable. IMPRESSION: No evident complication status post right thoracentesis.
[2019-05-24] MEDS ORDERED: BISACODYL 10 MG SUPP RECTAL PRN (14:41)
[2019-05-24] MEDS ORDERED: METHYL SALICYLATE/MENTHOL CREAM 5 OZ TOPICAL PRN (14:41)
[2019-05-24] MEDS ORDERED: ONDANSETRON 4 MG TAB PO PRN (14:41)
[2019-05-24 15:26] LABS: Glucose,Whole Blood 92 mg/dL (75-99)
[2019-05-24] MEDS: AMIODARONE 200 MG TAB PO SCH (15:37)
[2019-05-24] MEDS: traMADol 50 MG TAB PO PRN (15:37)
--- NOTE | 2019-05-24 15:41 | P.HPIM ---
History of Present Illness H&P Date: 05/24/19 Chief Complaint: Tired History of presenting complaint: This is a 83-year-old patient of Dr. roberto who was recently in the hospital from April 28 through May 09. Patient then was admitted with septic shock from UTI. She also has known pulmonary embolism for which she has been on eliquis. Last admission she had GI bleeding and patient was put on a [place] filter. Atelectasis was then resumed. Patient has chronic wounds on both the feet. And was cared by Dr. Cortez from [place]. Patient's chronic stable medical conditions include persistent atrial fibrillation, bilateral lower extremity foot wound secondary to diabetes, AICD, chronic congestive heart failure with EF of 30-35%, diabetes mellitus type 2, chronic peritonitis, GERD, hyperlipidemia, essential hypertension. Patient had been at the [facility] 88 patient apparently did not eat supper. Her blood sugar was 43. Patient did give glucagon injection. Sugar only came up to 51. EMS was called out to be didn't give an amp of D50. Patient was drowsy prior to that became alert after getting the D50 injection. Patient is hypotensive in the ER. CT in the ER did show bilateral pleural effusion. She was started on vancomycin and IV Zosyn for concerns for infection in the ER.. Patient has chronic wounds on lower extremity. Patient is rather weak and tired. It may be noted that patient does run a low blood pressure. When she left from there she was in the systolic 90s. Did not have much of an appetite. Today. Dr. Cameron from pulmonary did thoracentesis was 1100 mL of vahid fluid was obtained. Review of systems: GEN.: Tired EYES: None HEENT: Decreased hearing NECK: None RESPIRATORY: Some shortness of CARDIOVASCULAR: None GASTROINTESTINAL: None GENITOURINARY: None MUSCULOSKELETAL: . Joints LYMPHATICS: None HEMATOLOGICAL: None PSYCHIATRY: Bit forgetful NEUROLOGICAL: None DERMATOLOGICAL: Wounds on both the feet Social history: Visit [facility]. Uses a wheelchair. Does not smoke. No alcohol. Family history: Heart disease. Physical examination: VITAL SIGNS: Afebrile, 66, 20, 72/39, 98% room air on presentation GENERAL: BMI 24.2, laying in bed tired appearing. EYES: Pupils equal. Conjunctiva pale . HEENT: External appearance of nose and ears normal, oral cavity grossly normal, decreased hearing. NECK: JVD unable to assess; masses not palpable. HEART: First and second heart sounds are normal; no edema. LUNGS: Respiratory rate increased; decreased breath sounds. ABDOMEN: Soft, nontender, liver spleen not palpable, no masses palpable. PSYCH: Awake, answering simple questionsl. NEUROLOGICAL: Cranial nerves grossly intact; no facial asymmetry, moving all 4 limbs. LYMPHATICS: No lymph nodes palpable in the axilla and neck DERMATOLOGICAL: Wound on both the feet INVESTIGATIONS, reviewed in the clinical context: White count 18.4, hemoglobin 11.3, platelets 200, potassium 4.4, bun 19, creatinine 0.60 Lactic acid 3.6 Albumin 2.1 UA negative EKG tracing-personally reviewed by me shows atrial fibrillation rate controlled Chest x-ray film personally reviewed by [id number] pleural effusion Assessment: -Acute metabolic encephalopathy from hypoglycemia -Persistent hypoglycemia in a patient on oral hypoglycemic and poor oral oral intake -Acute on chronic congestive heart failure exacerbation from systolic dysfunction EF 30-35% -Left pleural effusion from congestive heart failure, status post thoracentesis 1100 mL removed today -Persistent atrial fibrillation, on eliquis -Coronary artery disease -GERD -Hard of hearing -Hyperlipidemia -Primary osteoarthritis -AICD -Bilateral diabetic feet ulcers with secondary infection -Colonic diverticulosis -Chronic pancolitis -Peripheral arterial disease -Chronic medical debility uses a wheelchair -DO NOT RESUSCITATE Plan: Patient admitted to the hospital. Left-sided thoracentesis was carried out. Encourage oral intake. Oral hypoglycemic are held. Accu-Cheks will be closely followed. Building Services Coordinator Dr. Cameron was consulted. Dr. Cortez from [place]. It may be noted that patient was low when a low blood pressure. He was come back unremarkable. Given her age and multiple comorbidities prognosis guarded. Patient was started on antibiotics in the ER on vancomycin and Zosyn. Follow with ID. Past Medical History Past Medical History: Atrial Fibrillation, Coronary Artery Disease (CAD), Cancer, Diabetes Mellitus, GERD/Reflux, Hearing Disorder / Deafness, Hyperl ipidemia, Hypertension, Osteoarthritis (OA), Skin Disorder Additional Past Medical History / Comment(s): Coronary artery disease, congestion heart failure with an ejection fraction of 35-40%, history of AICD placement, history of chronic atrial fibrillation, diabetes mellitus, diabetic ulcers in the feet bilaterally, chronic infected diabetic wounds, recurrent UTI, hypertension, impaired hearing, hyperlipidemia, acid reflux, history of cervical cancer, history of diverticulosis/diverticulitis, history of right arm fracture, history of chronic pancreatitis, history of gallstones, severe peripheral vascular disease, history of cutaneous fungal infection/Kate, care home resident and the patient resides at medical [place]. History of Any Multi-Drug Resistant Organisms: ESBL Date of last positivie culture/infection: 01/23/19 ESBL E.coli MDRO Source:: Urine Past Surgical History: AICD, Bowel Resection, Cholecystectomy, Heart Catheterization, Hysterectomy, Orthopedic Surgery Additional Past Surgical History / Comment(s): AICD defibulator 09-15-17, LT ROTATOR CUFF X2, BUNIONECTOMY JACQUELINE,, JACQUELINE BREAST LUMPECTOMIES-BOTH NEG,, X2 ERCP, RT HAND SX PINS PLACED-BUT SINCE REMOVED, CATARACTS. 12/01/17 picc line inserted- since removed Past Anesthesia/Blood Transfusion Reactions: No Reported Reaction Type of Cardiac Device: AICD Device Placement Date:: 09-15-17 Past Psychological History: No Psychological Hx Reported Additional Psychological History / Comment(s): PT [facility] IN [facility]. PT USES WHEEL CHAIR. Smoking Status: Former smoker Past Alcohol Use History: None Reported Additional Past Alcohol Use History / Comment(s): Smoked sporadically from 1964 till 1967 Past Drug Use History: None Reported - Past Family History Mother Family Medical History: No Reported History Additional Family Medical History / Comment(s): HEART DISEASE runs in the patient's family. Daughter is healthy at this point in time. has been . Father Family Medical History: Coronary Artery Disease (CAD), Diabetes Mellitus Medications and Allergies Home Medications Medication Instructions Recorded Confirmed Type Pentoxifylline 400 mg PO TID@0800,1200,1700 12/13/16 05/23/19 History Vit C/E/Zn/Coppr/Lutein/Zeaxan 1 cap PO BID 11/10/17 05/23/19 History [Preservision Areds 2 Softgel] metFORMIN HCL 1,000 mg PO BID@0800,1700 11/10/17 05/23/19 History Ergocalciferol [Vitamin D2 50,000 unit PO WE 09/25/18 05/23/19 History (DRISDOL)] Magnesium Oxide [Mag-Ox] 400 mg PO BID@0800,1700 09/25/18 05/23/19 History Thiamine [Vitamin B-1] 100 mg PO DAILY@1700 09/25/18 05/23/19 History Tolterodine Tartrate [Detrol LA] 4 mg PO DAILY@0800 09/25/18 05/23/19 History Vitamin B Complex 1 cap PO DAILY@1700 09/25/18 05/23/19 History Diclofenac Sodium Gel [Voltaren 2 gm TOPICAL QID tube 10/08/18 05/23/19 Rx Gel] Collagenase [Santyl] 1 applic TOPICAL DAILY 10/13/18 05/23/19 History Ondansetron HCl [Zofran] 4 mg PO QID PRN 10/13/18 05/23/19 History Magnesium Hydroxide [Milk of 30 ml PO Q48H PRN 11/13/18 05/23/19 History Magnesia Concentrate] Na Phos,M-B/Na Phos,Di-Ba [Fleet 133 ml RECTAL DAILY PRN 11/13/18 05/23/19 History Adult] Simethicone 80 mg PO TID@0800,1200,1700 11/27/18 05/23/19 History Apixaban [Eliquis] 5 mg PO BID@0800,1700 04/23/19 05/23/19 History Bisacodyl [Dulcolax] 10 mg RECTAL DAILY PRN 04/23/19 05/23/19 History Liquacel (Amino Acids) 30 ml PO BID@0800,1700 04/23/19 05/23/19 History Talc-Zinc Oxide Powder 81-15% 1 applic TOPICAL BID@0800,1700 04/23/19 05/23/19 History Ursodiol 300 mg PO BID@0800,2100 04/23/19 05/23/19 History INSULIN ASPART (NovoLOG) [NovoLOG See Protocol SQ AC-TID #1 vial 04/25/19 05/23/19 Rx (formulary)] Midodrine HCl [ProAmantine] 2.5 mg PO BID 04/28/19 05/23/19 History Amiodarone [Cordarone] 200 mg PO DAILY tab 05/09/19 05/23/19 Rx Atorvastatin [Lipitor] 40 mg PO DAILY tab 05/09/19 05/23/19 Rx Furosemide [Lasix] 20 mg PO DAILY #0 05/09/19 05/23/19 Rx Gabapentin [Neurontin] 100 mg PO TID@0600,1400,2100 #9 cap 05/09/19 05/23/19 Rx Sertraline [Zoloft] 25 mg PO DAILY tab 05/09/19 05/23/19 Rx Spironolactone [Aldactone] 12.5 mg PO DAILY tab 05/09/19 05/23/19 Rx traMADol HCL [Ultram] 25 mg PO Q6HR PRN #8 tab 05/09/19 05/23/19 Rx Acetaminophen Tab [Tylenol] 325 mg PO Q6HR PRN 05/23/19 05/23/19 History Collagenase [Santyl] 1 applic TOPICAL DAILY PRN 05/23/19 05/23/19 History Esomeprazole Magnesium [NexIUM] 40 mg PO DAILY 05/23/19 05/23/19 History Glucerna Shake 1 can PO TID 05/23/19 05/23/19 History Menthol [Biofreeze] 1 applic TOPICAL DAILY PRN 05/23/19 05/23/19 History Metoprolol Tartrate [Lopressor] 12.5 mg PO TID 05/23/19 05/23/19 History Potassium Chloride ER [K-Dur 10] 10 meq PO DAILY 05/23/19 05/23/19 History clonazePAM [KlonoPIN] 0.5 mg PO BID 05/23/19 05/23/19 History Allergies Allergy/AdvReac Type Severity Reaction Status Date / Time levofloxacin [From Levaquin] Allergy Mild Rash/Hives Verified 05/23/19 22:25 morphine AdvReac Rapid Verified 05/23/19 22:25 Heart Rate Physical Exam Vitals: Vital Signs Temp Pulse Resp BP Pulse Ox 05/24/19 13:00 71 15 107/58 98 05/24/19 12:45 67 16 96/57 05/24/19 12:30 78 15 99/57 94 L 05/24/19 12:15 72 15 83/54 98 05/24/19 12:00 96.8 F L 68 13 101/49 99 05/24/19 11:45 75 14 86/40 05/24/19 11:30 69 14 97/51 100 05/24/19 11:15 63 15 102/55 100 05/24/19 11:00 96.8 F L 65 11 L 104/61 100 05/24/19 10:45 73 17 94/69 100 05/24/19 10:30 70 22 104/63 99 05/24/19 10:15 70 14 88/53 97 05/24/19 10:00 65 16 78/58 96 05/24/19 09:45 66 15 80/51 05/24/19 09:30 62 15 90/62 97 05/24/19 09:15 82 21 85/41 97 05/24/19 09:00 65 15 102/55 98 05/24/19 08:45 65 14 108/57 05/24/19 08:30 63 15 104/54 82 L 05/24/19 08:15 61 14 76/50 05/24/19 08:00 96.4 F L 70 14 106/55 97 05/24/19 07:45 96.4 F L 62 14 97/64 97 05/24/19 07:30 62 14 110/57 05/24/19 07:15 35.7 F L 68 13 120/58 97 05/24/19 06:45 70 19 120/56 05/24/19 06:30 35.2 F L 66 21 122/56 95 05/24/19 05:12 98.8 F 66 19 131/69 98 05/24/19 04:36 63 18 81/43 96 05/24/19 03:46 63 18 96/69 98 05/24/19 03:00 59 L 18 97/63 97 05/24/19 02:52 66 18 76/52 96 05/24/19 00:50 87 11 L 97/59 96 05/24/19 00:30 70 16 84/49 94 L 05/23/19 22:32 66 20 72/39 98 Intake and Output 05/24/19 05/24/19 05/24/19 06:59 14:59 22:59 Intake Total 324.22 1240 Output Total 300 650 Balance 24.22 590 Intake: IV 270 1240 Dextrose 5%-0.9% NaCl 1, 20 140 000 ml @ 20 mls/hr IV . Q24H [facility] Rx#:[id number] Piperacillin-Tazobactam 3 100 .375 gm In Sodium Chloride 0.9% 100 ml @ 25 mls/hr IVPB Q8H [facility] Rx#: [id number] Sodium Chloride 0.9% 1, 1000 000 ml @ 999 mls/hr IV . Q1H1M [facility] Rx#:[id number] Vancomycin 1,250 mg In 250 Sodium Chloride 0.9% 250 ml @ 125 mls/hr IVPB ONCE [facility] Rx#:[id number] Intake, IV Titration 54.22 Amount Norepinephrine 4 mg In 54.22 Sodium Chloride 0.9% 250 ml @ 0.05 MCG/KG/MIN 12. 961 mls/hr IV .[id number] [facility] Rx#:[id number] Output: Urine 300 650 Other: Voiding Method Indwelling Catheter # Bowel Movements 1 Results CBC & Chem 7: 05/24/19 07:55 05/24/19 07:55 Labs: Abnormal Lab Results - Last 24 Hours (Table) 05/23/19 05/23/19 05/23/19 Range/Units 22:23 22:47 22:47 WBC 18.4 H (3.8-10.6) k/uL RBC (3.80-5.40) m/uL Hgb 11.3 L (11.4-16.0) gm/dL RDW 18.1 H (11.5-15.5) % Neutrophils # 16.8 H (1.3-7.7) k/uL Lymphocytes # 0.6 L (1.0-4.8) k/uL PT (9.0-12.0) sec INR (<1.2) APTT (22.0-30.0) sec D-Dimer (<0.60) mg/L FEU Sodium 133 L (137-145) mmol/L BUN 19 H (7-17) mg/dL Glucose 125 H (74-99) mg/dL POC Glucose (mg/dL) 135 H (75-99) mg/dL Plasma Lactic Acid Lawrence (0.7-2.0) mmol/L Calcium 8.1 L (8.4-10.2) mg/dL Ammonia (<30) umol/L Creatine Kinase <20 L (30-135) U/L Total Protein 4.9 L (6.3-8.2) g/dL Albumin 2.1 L (3.5-5.0) g/dL 05/23/19 05/23/19 05/24/19 Range/Units 22:47 22:47 01:05 WBC (3.8-10.6) k/uL RBC (3.80-5.40) m/uL Hgb (11.4-16.0) gm/dL RDW (11.5-15.5) % Neutrophils # (1.3-7.7) k/uL Lymphocytes # (1.0-4.8) k/uL PT 14.9 H (9.0-12.0) sec INR 1.5 H (<1.2) APTT 33.8 H (22.0-30.0) sec D-Dimer (<0.60) mg/L FEU Sodium (137-145) mmol/L BUN (7-17) mg/dL Glucose (74-99) mg/dL POC Glucose (mg/dL) 50 L (75-99) mg/dL Plasma Lactic Acid Lawrence 3.6 H* (0.7-2.0) mmol/L Calcium (8.4-10.2) mg/dL Ammonia 42 H (<30) umol/L Creatine Kinase (30-135) U/L Total Protein (6.3-8.2) g/dL Albumin (3.5-5.0) g/dL 05/24/19 05/24/19 05/24/19 Range/Units 02:12 03:42 04:26 WBC (3.8-10.6) k/uL RBC (3.80-5.40) m/uL Hgb (11.4-16.0) gm/dL RDW (11.5-15.5) % Neutrophils # (1.3-7.7) k/uL Lymphocytes # (1.0-4.8) k/uL PT (9.0-12.0) sec INR (<1.2) APTT (22.0-30.0) sec D-Dimer (<0.60) mg/L FEU Sodium (137-145) mmol/L BUN (7-17) mg/dL Glucose (74-99) mg/dL POC Glucose (mg/dL) 101 H 60 L 124 H (75-99) mg/dL Plasma Lactic Acid Lawrence (0.7-2.0) mmol/L Calcium (8.4-10.2) mg/dL Ammonia (<30) umol/L Creatine Kinase (30-135) U/L Total Protein (6.3-8.2) g/dL Albumin (3.5-5.0) g/dL 05/24/19 05/24/19 05/24/19 Range/Units 04:38 05:15 06:02 WBC (3.8-10.6) k/uL RBC (3.80-5.40) m/uL Hgb (11.4-16.0) gm/dL RDW (11.5-15.5) % Neutrophils # (1.3-7.7) k/uL Lymphocytes # (1.0-4.8) k/uL PT (9.0-12.0) sec INR (<1.2) APTT (22.0-30.0) sec D-Dimer (<0.60) mg/L FEU Sodium (137-145) mmol/L BUN (7-17) mg/dL Glucose (74-99) mg/dL POC Glucose (mg/dL) 156 H 127 H (75-99) mg/dL Plasma Lactic Acid Lawrence 2.5 H* (0.7-2.0) mmol/L Calcium (8.4-10.2) mg/dL Ammonia (<30) umol/L Creatine Kinase (30-135) U/L Total Protein (6.3-8.2) g/dL Albumin (3.5-5.0) g/dL 05/24/19 05/24/19 05/24/19 Range/Units 07:11 07:55 07:55 WBC 13.0 H (3.8-10.6) k/uL RBC 3.69 L (3.80-5.40) m/uL Hgb 10.9 L (11.4-16.0) gm/dL RDW 19.1 H (11.5-15.5) % Neutrophils # 11.4 H (1.3-7.7) k/uL Lymphocytes # 0.9 L (1.0-4.8) k/uL PT (9.0-12.0) sec INR (<1.2) APTT (22.0-30.0) sec D-Dimer (<0.60) mg/L FEU Sodium 134 L (137-145) mmol/L BUN 19 H (7-17) mg/dL Glucose 139 H (74-99) mg/dL POC Glucose (mg/dL) 107 H (75-99) mg/dL Plasma Lactic Acid Lawrence (0.7-2.0) mmol/L Calcium 7.5 L (8.4-10.2) mg/dL Ammonia (<30) umol/L Creatine Kinase (30-135) U/L Total Protein (6.3-8.2) g/dL Albumin (3.5-5.0) g/dL 05/24/19 05/24/19 05/24/19 Range/Units 07:57 08:47 10:33 WBC (3.8-10.6) k/uL RBC (3.80-5.40) m/uL Hgb (11.4-16.0) gm/dL RDW (11.5-15.5) % Neutrophils # (1.3-7.7) k/uL Lymphocytes # (1.0-4.8) k/uL PT (9.0-12.0) sec INR (<1.2) APTT (22.0-30.0) sec D-Dimer 1.26 H (<0.60) mg/L FEU Sodium (137-145) mmol/L BUN (7-17) mg/dL Glucose (74-99) mg/dL POC Glucose (mg/dL) 151 H 112 H (75-99) mg/dL Plasma Lactic Acid Lawrence (0.7-2.0) mmol/L Calcium (8.4-10.2) mg/dL Ammonia (<30) umol/L Creatine Kinase (30-135) U/L Total Protein (6.3-8.2) g/dL Albumin (3.5-5.0) g/dL Microbiology - Last 24 Hours (Table) 05/24/19 06:30 Urine Culture - Preliminary Urine,Catheterized
[2019-05-24] MEDS ORDERED: NON FORMULARY DRUG (Glucerna Shake 1 CAN) PO SCH (16:00)
[2019-05-24] MEDS ORDERED: [UNRECOGNIZED DRUG - OTHER] TOPICAL SCH (17:00)
[2019-05-24 17:08] LABS: Glucose,Whole Blood 74 mg/dL (75-99)
[2019-05-24] MEDS: THIAMINE 100 MG TAB PO SCH (17:49)
[2019-05-24] MEDS: MIDODRINE 5 MG TAB PO SCH (17:49)
[2019-05-24] MEDS: MAGNESIUM OXIDE 400 MG TAB PO SCH (17:49)
[2019-05-24] MEDS: PENTOXIFYLLINE 400 MG TABLET.ER PO SCH (17:49)
[2019-05-24] MEDS: SERTRALINE 25 MG TAB PO SCH (17:49)
[2019-05-24] MEDS: SIMETHICONE 80 MG CHEWABLE PO SCH (17:49)
[2019-05-24] MEDS: DICLOFENAC SODIUM GEL 100 GM TUBE TOPICAL SCH ×2 (17:50→21:24)
[2019-05-24] MEDS: METOPROLOL TARTRATE 12.5 MG TAB PO SCH ×2 (17:52→22:59)
[2019-05-24] MEDS: PANTOPRAZOLE 40 MG TABLET PO SCH (17:52)
[2019-05-24 20:59] LABS: Glucose,Whole Blood 219 mg/dL (75-99)
[2019-05-24] MEDS ORDERED: clonazePAM 0.5 MG TAB PO PRN (21:00)
[2019-05-24] MEDS: URSODIOL 300 MG CAP PO SCH (21:15)
[2019-05-24] MEDS: GABAPENTIN 100 MG CAP PO SCH (21:15)
[2019-05-24] MEDS: VANCOMYCIN 1,250 MG in SODIUM CHLORIDE 0.9% 250 ML IVPB SCH (22:46)
--- NOTE | 2019-05-24 23:19 | OP ---
OPERATIVE REPORT OPERATIVE REPORT: Right-sided thoracentesis. PREOPERATIVE DIAGNOSIS: Right pleural effusion. POSTOPERATIVE DIAGNOSIS: Right pleural effusion. ANESTHESIA USED: 2 mL of 1% lidocaine. DETAILS OF THE PROCEDURE: The patient was placed in a sitting upright position, the area below the right scapula was prepared in a sterile fashion and drapes were applied. The area of the fluid was localized by ultrasound guidance earlier. At the level of the 8th intercostal space and tip of the scapula, the area was locally anesthetized. Then a 26-gauge needle was inserted at this site, advanced into the pleural space. Fluid was localized to the needle. Then a small tiny incision was made, and a standard thoracentesis catheter and needle were used, inserted at the same site, advanced into the pleural space. The fluid was localized and this was a fluid was obtained. Then, the catheter was advanced over the needle into the pleural space and the needle was pulled out of the pleural space. Freely flowing fluid was drained roughly 1100 cc of slightly yellow fluid obtained from the right pleural space. Postoperatively, chest x-ray was ordered. No evidence of any complications. The fluid was sent for different diagnostic studies. Procedure was well tolerated and no complications. MMODL / IJN: [id number] /
--- NOTE | 2019-05-24 23:59 | P.CONS ---
History of Present Illness - Reason for Consult Consult date: 05/24/19 Diabetic foot wound Requesting physician: Cj Choe - Chief Complaint Unresponsiveness and low blood sugar x one day - History of Present Illness Patient is 83-year-old female with a past medical history significant for bilateral diabetic foot wound in this patient who also with a history of recurrent urinary tract infection, patient was noticed in the intermediate to have a low blood sugar of 43 she was given glucagon EMS was called and will give her a D50 amp and subsequently brought to [facility] ER he was hypotensive requiring some fluid resuscitation patient did have a CT angiogram that was initially reported negative for PE however the patient did have evidence of bilateral pleural effusion this patient has been afebrile and she did have elevated white count of 18,000 on presentation her UA was negative the patient has been empirically started on vancomycin and Zosyn and infectious disease was consulted today for recommendation regarding bilateral foot wound and antibiotic therapy most of the information has been obtained from review the chart and talking nursing staff as the patient is currently lethargic and unable to provide reliable history Review of Systems Positive points has been mentioned in HPI complete review could not be obtained because of the patient mental status Past Medical History Past Medical History: Atrial Fibrillation, Coronary Artery Disease (CAD), Cancer, Diabetes Mellitus, GERD/Reflux, Hearing Disorder / Deafness, Hyperlipidemia, Hypertension, Osteoarthritis (OA), Skin Disorder Additional Past Medical History / Comment(s): Coronary artery disease, congestion heart failure with an ejection fraction of 35-40%, history of AICD placement, history of chronic atrial fibrillation, diabetes mellitus, diabetic ulcers in the feet bilaterally, chronic infected diabetic wounds, recurrent UTI, hypertension, impaired hearing, hyperlipidemia, acid reflux, history of cervical cancer, history of diverticulosis/diverticulitis, history of right arm fracture, history of chronic pancreatitis, history of gallstones, severe peripheral vascular disease, history of cutaneous fungal infection/Kate, intermediate resident and the patient resides at [facility]. History of Any Multi-Drug Resistant Organisms: ESBL Year Discovered:: 01/23/19 ESBL E.coli MDRO Source:: Urine Past Surgical History: AICD, Bowel Resection, Cholecystectomy, Heart Catheterization, Hysterectomy, Orthopedic Surgery Additional Past Surgical History / Comment(s): AICD defibulator 1--18, LT ROTATOR CUFF X2, BUNIONECTOMY JACQUELINE,, JACQUELINE BREAST LUMPECTOMIES-BOTH NEG,, X2 ERCP, RT HAND SX PINS PLACED-BUT SINCE REMOVED, CATARACTS. 12/01/17 picc line inserted- since removed Past Anesthesia/Blood Transfusion Reactions: No Reported Reaction Type of Cardiac Device: AICD Device Placement Date:: 09-15-17 Past Psychological History: No Psychological Hx Reported Additional Psychological History / Comment(s): PT [facility] IN [facility]. PT USES [employer]. Smoking Status: Former smoker Past Alcohol Use History: None Reported Additional Past Alcohol Use History / Comment(s): Smoked sporadically from 1964 till 1967 Past Drug Use History: None Reported - Past Family History Mother Family Medical History: No Reported History Additional Family Medical History / Comment(s): HEART DISEASE runs in the patient's family. Daughter is healthy at this point in time. has been . Father Family Medical History: Coronary Artery Disease (CAD), Diabetes Mellitus Medications and Allergies Home Medications Medication Instructions Recorded Confirmed Type Pentoxifylline 400 mg PO TID@0800,1200,1700 12/13/16 05/23/19 History Vit C/E/Zn/Coppr/Lutein/Zeaxan 1 cap PO BID 11/10/17 05/23/19 History [Preservision Areds 2 Softgel] metFORMIN HCL 1,000 mg PO BID@0800,1700 11/10/17 05/23/19 History Ergocalciferol [Vitamin D2 50,000 unit PO WE 09/25/18 05/23/19 History (DRISDOL)] Magnesium Oxide [Mag-Ox] 400 mg PO BID@0800,1700 09/25/18 05/23/19 History Thiamine [Vitamin B-1] 100 mg PO DAILY@1700 09/25/18 05/23/19 History Tolterodine Tartrate [Detrol LA] 4 mg PO DAILY@0800 09/25/18 05/23/19 History Vitamin B Complex 1 cap PO DAILY@1700 09/25/18 05/23/19 History Diclofenac Sodium Gel [Voltaren 2 gm TOPICAL QID tube 10/08/18 05/23/19 Rx Gel] Collagenase [Santyl] 1 applic TOPICAL DAILY 10/13/18 05/23/19 History Ondansetron HCl [Zofran] 4 mg PO QID PRN 10/13/18 05/23/19 History Magnesium Hydroxide [Milk of 30 ml PO Q48H PRN 11/13/18 05/23/19 History Magnesia Concentrate] Na Phos,M-B/Na Phos,Di-Ba [Fleet 133 ml RECTAL DAILY PRN 11/13/18 05/23/19 History Adult] Simethicone 80 mg PO TID@0800,1200,1700 11/27/18 05/23/19 History Apixaban [Eliquis] 5 mg PO BID@0800,1700 04/23/19 05/23/19 History Bisacodyl [Dulcolax] 10 mg RECTAL DAILY PRN 04/23/19 05/23/19 History Liquacel (Amino Acids) 30 ml PO BID@0800,1700 04/23/19 05/23/19 History Talc-Zinc Oxide Powder 81-15% 1 applic TOPICAL BID@0800,1700 04/23/19 05/23/19 History Ursodiol 300 mg PO BID@0800,2100 04/23/19 05/23/19 History INSULIN ASPART (NovoLOG) [NovoLOG See Protocol SQ AC-TID #1 vial 04/25/19 05/23/19 Rx (formulary)] Midodrine HCl [ProAmantine] 2.5 mg PO BID 04/28/19 05/23/19 History Amiodarone [Cordarone] 200 mg PO DAILY tab 05/09/19 05/23/19 Rx Atorvastatin [Lipitor] 40 mg PO DAILY tab 05/09/19 05/23/19 Rx Furosemide [Lasix] 20 mg PO DAILY #0 05/09/19 05/23/19 Rx Gabapentin [Neurontin] 100 mg PO TID@0600,1400,2100 #9 cap 05/09/19 05/23/19 Rx Sertraline [Zoloft] 25 mg PO DAILY tab 05/09/19 05/23/19 Rx Spironolactone [Aldactone] 12.5 mg PO DAILY tab 05/09/19 05/23/19 Rx traMADol HCL [Ultram] 25 mg PO Q6HR PRN #8 tab 05/09/19 05/23/19 Rx Acetaminophen Tab [Tylenol] 325 mg PO Q6HR PRN 05/23/19 05/23/19 History Collagenase [Santyl] 1 applic TOPICAL DAILY PRN 05/23/19 05/23/19 History Esomeprazole Magnesium [NexIUM] 40 mg PO DAILY 05/23/19 05/23/19 History Glucerna Shake 1 can PO TID 05/23/19 05/23/19 History Menthol [Biofreeze] 1 applic TOPICAL DAILY PRN 05/23/19 05/23/19 History Metoprolol Tartrate [Lopressor] 12.5 mg PO TID 05/23/19 05/23/19 History Potassium Chloride ER [K-Dur 10] 10 meq PO DAILY 05/23/19 05/23/19 History clonazePAM [KlonoPIN] 0.5 mg PO BID 05/23/19 05/23/19 History Allergies Allergy/AdvReac Type Severity Reaction Status Date / Time levofloxacin [From Levaquin] Allergy Mild Rash/Hives Verified 05/23/19 22:25 morphine AdvReac Rapid Verified 05/23/19 22:25 Heart Rate Physical Exam Vitals: Vital Signs Temp Pulse Resp BP Pulse Ox 05/24/19 13:00 71 15 107/58 98 05/24/19 12:45 67 16 96/57 05/24/19 12:30 78 15 99/57 94 L 05/24/19 12:15 72 15 83/54 98 05/24/19 12:00 96.8 F L 68 13 101/49 99 05/24/19 11:45 75 14 86/40 05/24/19 11:30 69 14 97/51 100 05/24/19 11:15 63 15 102/55 100 05/24/19 11:00 96.8 F L 65 11 L 104/61 100 05/24/19 10:45 73 17 94/69 100 05/24/19 10:30 70 22 104/63 99 05/24/19 10:15 70 14 88/53 97 05/24/19 10:00 65 16 78/58 96 05/24/19 09:45 66 15 80/51 05/24/19 09:30 62 15 90/62 97 05/24/19 09:15 82 21 85/41 97 05/24/19 09:00 65 15 102/55 98 05/24/19 08:45 65 14 108/57 05/24/19 08:30 63 15 104/54 82 L 05/24/19 08:15 61 14 76/50 05/24/19 08:00 96.4 F L 70 14 106/55 97 05/24/19 07:45 96.4 F L 62 14 97/64 97 05/24/19 07:30 62 14 110/57 05/24/19 07:15 35.7 F L 68 13 120/58 97 05/24/19 06:45 70 19 120/56 05/24/19 06:30 35.2 F L 66 21 122/56 95 05/24/19 05:12 98.8 F 66 19 131/69 98 05/24/19 04:36 63 18 81/43 96 05/24/19 03:46 63 18 96/69 98 05/24/19 03:00 59 L 18 97/63 97 05/24/19 02:52 66 18 76/52 96 05/24/19 00:50 87 11 L 97/59 96 05/24/19 00:30 70 16 84/49 94 L 05/23/19 22:32 66 20 72/39 98 Intake and Output 05/24/19 05/24/19 05/24/19 06:59 14:59 22:59 Intake Total 324.22 1240 Output Total 300 650 Balance 24.22 590 Intake: IV 270 1240 Dextrose 5%-0.9% NaCl 1, 20 140 000 ml @ 20 mls/hr IV . Q24H [facility] Rx#:[id number] Piperacillin-Tazobactam 3 100 .375 gm In Sodium Chloride 0.9% 100 ml @ 25 mls/hr IVPB Q8H [facility] Rx#: [id number] Sodium Chloride 0.9% 1, 1000 000 ml @ 999 mls/hr IV . Q1H1M ONE Rx#:[id number] Vancomycin 1,250 mg In 250 Sodium Chloride 0.9% 250 ml @ 125 mls/hr IVPB ONCE ONE Rx#:[id number] Intake, IV Titration 54.22 Amount Norepinephrine 4 mg In 54.22 Sodium Chloride 0.9% 250 ml @ 0.05 MCG/KG/MIN 12. 961 mls/hr IV .[id number] [facility] Rx#:[id number] Output: Urine 300 650 Other: Voiding Method Indwelling Catheter # Bowel Movements 1 GENERAL DESCRIPTION: Elderly female lying in bed, no distress. No tachypnea or accessory muscle of respiration use. HEENT: Shows Pallor , no scleral icterus. Oral mucous membrane is dry. No pharyngeal erythema or thrush NECK: Trachea central, no thyromegaly. LUNGS: Unlabored breathing. Decreased breath sound the bases. No wheeze or crackle. HEART: S1, S2, regular rate and rhythm. No loud murmur ABDOMEN: Soft, no tenderness , guarding or rigidity, no organomegaly EXTREMITIES: Left foot medial and lateral border wound with slough tissue no significant surrounding swelling redness or any foul-smelling drainage Right foot with medial border wound at the base of first toe did have a slough tissue and some necrotic area but no surrounding redness or any foul-smelling drainage SKIN: No rash, no masses palpable. NEUROLOGICAL: The patient is lethargic and orientation could not be determined no agitation was noticed Results CBC & Chem 7: 05/24/19 07:55 05/24/19 07:55 Labs: Abnormal Lab Results - Last 24 Hours (Table) 05/23/19 05/23/19 05/23/19 Range/Units 22:23 22:47 22:47 WBC 18.4 H (3.8-10.6) k/uL RBC (3.80-5.40) m/uL Hgb 11.3 L (11.4-16.0) gm/dL RDW 18.1 H (11.5-15.5) % Neutrophils # 16.8 H (1.3-7.7) k/uL Lymphocytes # 0.6 L (1.0-4.8) k/uL PT (9.0-12.0) sec INR (<1.2) APTT (22.0-30.0) sec D-Dimer (<0.60) mg/L FEU Sodium 133 L (137-145) mmol/L BUN 19 H (7-17) mg/dL Glucose 125 H (74-99) mg/dL POC Glucose (mg/dL) 135 H (75-99) mg/dL Plasma Lactic Acid Lawrence (0.7-2.0) mmol/L Calcium 8.1 L (8.4-10.2) mg/dL Ammonia (<30) umol/L Creatine Kinase <20 L (30-135) U/L Total Protein 4.9 L (6.3-8.2) g/dL Albumin 2.1 L (3.5-5.0) g/dL 05/23/19 05/23/19 05/24/19 Range/Units 22:47 22:47 01:05 WBC (3.8-10.6) k/uL RBC (3.80-5.40) m/uL Hgb (11.4-16.0) gm/dL RDW (11.5-15.5) % Neutrophils # (1.3-7.7) k/uL Lymphocytes # (1.0-4.8) k/uL PT 14.9 H (9.0-12.0) sec INR 1.5 H (<1.2) APTT 33.8 H (22.0-30.0) sec D-Dimer (<0.60) mg/L FEU Sodium (137-145) mmol/L BUN (7-17) mg/dL Glucose (74-99) mg/dL POC Glucose (mg/dL) 50 L (75-99) mg/dL Plasma Lactic Acid Lawrence 3.6 H* (0.7-2.0) mmol/L Calcium (8.4-10.2) mg/dL Ammonia 42 H (<30) umol/L Creatine Kinase (30-135) U/L Total Protein (6.3-8.2) g/dL Albumin (3.5-5.0) g/dL 05/24/19 05/24/19 05/24/19 Range/Units 02:12 03:42 04:26 WBC (3.8-10.6) k/uL RBC (3.80-5.40) m/uL Hgb (11.4-16.0) gm/dL RDW (11.5-15.5) % Neutrophils # (1.3-7.7) k/uL Lymphocytes # (1.0-4.8) k/uL PT (9.0-12.0) sec INR (<1.2) APTT (22.0-30.0) sec D-Dimer (<0.60) mg/L FEU Sodium (137-145) mmol/L BUN (7-17) mg/dL Glucose (74-99) mg/dL POC Glucose (mg/dL) 101 H 60 L 124 H (75-99) mg/dL Plasma Lactic Acid Lawrence (0.7-2.0) mmol/L Calcium (8.4-10.2) mg/dL Ammonia (<30) umol/L Creatine Kinase (30-135) U/L Total Protein (6.3-8.2) g/dL Albumin (3.5-5.0) g/dL 05/24/19 05/24/19 05/24/19 Range/Units 04:38 05:15 06:02 WBC (3.8-10.6) k/uL RBC (3.80-5.40) m/uL Hgb (11.4-16.0) gm/dL RDW (11.5-15.5) % Neutrophils # (1.3-7.7) k/uL Lymphocytes # (1.0-4.8) k/uL PT (9.0-12.0) sec INR (<1.2) APTT (22.0-30.0) sec D-Dimer (<0.60) mg/L FEU Sodium (137-145) mmol/L BUN (7-17) mg/dL Glucose (74-99) mg/dL POC Glucose (mg/dL) 156 H 127 H (75-99) mg/dL Plasma Lactic Acid Lawrence 2.5 H* (0.7-2.0) mmol/L Calcium (8.4-10.2) mg/dL Ammonia (<30) umol/L Creatine Kinase (30-135) U/L Total Protein (6.3-8.2) g/dL Albumin (3.5-5.0) g/dL 05/24/19 05/24/19 05/24/19 Range/Units 07:11 07:55 07:55 WBC 13.0 H (3.8-10.6) k/uL RBC 3.69 L (3.80-5.40) m/uL Hgb 10.9 L (11.4-16.0) gm/dL RDW 19.1 H (11.5-15.5) % Neutrophils # 11.4 H (1.3-7.7) k/uL Lymphocytes # 0.9 L (1.0-4.8) k/uL PT (9.0-12.0) sec INR (<1.2) APTT (22.0-30.0) sec D-Dimer (<0.60) mg/L FEU Sodium 134 L (137-145) mmol/L BUN 19 H (7-17) mg/dL Glucose 139 H (74-99) mg/dL POC Glucose (mg/dL) 107 H (75-99) mg/dL Plasma Lactic Acid Lawrence (0.7-2.0) mmol/L Calcium 7.5 L (8.4-10.2) mg/dL Ammonia (<30) umol/L Creatine Kinase (30-135) U/L Total Protein (6.3-8.2) g/dL Albumin (3.5-5.0) g/dL 05/24/19 05/24/19 05/24/19 Range/Units 07:57 08:47 10:33 WBC (3.8-10.6) k/uL RBC (3.80-5.40) m/uL Hgb (11.4-16.0) gm/dL RDW (11.5-15.5) % Neutrophils # (1.3-7.7) k/uL Lymphocytes # (1.0-4.8) k/uL PT (9.0-12.0) sec INR (<1.2) APTT (22.0-30.0) sec D-Dimer 1.26 H (<0.60) mg/L FEU Sodium (137-145) mmol/L BUN (7-17) mg/dL Glucose (74-99) mg/dL POC Glucose (mg/dL) 151 H 112 H (75-99) mg/dL Plasma Lactic Acid Lawrence (0.7-2.0) mmol/L Calcium (8.4-10.2) mg/dL Ammonia (<30) umol/L Creatine Kinase (30-135) U/L Total Protein (6.3-8.2) g/dL Albumin (3.5-5.0) g/dL Microbiology - Last 24 Hours (Table) 05/24/19 06:30 Urine Culture - Preliminary Urine,Catheterized Assessment and Plan Assessment: 1-patient with bilateral foot diabetic foot wound this patient wound currently covered with a significant slough and necrotic tissue but no sniffing surrounding inflammatory changes or any foul-smelling drainage, clinically doubt deep infection 2-leukocytosis more likely reactive 3-bilateral pleural effusion with some compressive atelectasis pneumonia and less likely than not entirely excluded UA has been negative (1) Diabetic foot ulcer Current Visit: Yes Status: Acute Code(s): E11.621 - TYPE 2 DIABETES MELLITUS WITH FOOT ULCER; L97.509 - NON-PRESSURE CHRONIC ULCER OTH PRT UNSP FOOT W UNSP SEVERITY SNOMED Code(s): 679296896 Plan: 1-local wound care to bilateral diabetic foot wound with Santyl followed by moist dressing to be changed daily and keep the area off the pressure 2-continue with vancomycin however discontinue Zosyn to decrease risk of nephrotoxicity and will add cefepime to cover for the gram-negative while waiting for the cultures to finalize we will follow on clinical condition and culture to further adjust medication if needed Thank you for this consultation will follow this patient along with you Time with Patient: Greater than 30
[2019-05-25 00:40] LABS: Total Protein, Body Fluid 1390 mg/dL
[2019-05-25 01:32] LABS: Glucose, BF Source Thoracentesis Fluid; Glucose, Body Fluid 122 mg/dL
[2019-05-25 01:48] LABS: Glucose,Whole Blood 227 mg/dL (75-99)
[2019-05-25] MEDS: DEXTROSE 5%-0.9% NACL 1,000 ML IV SCH (03:17)
[2019-05-25] MEDS: NOREPINEPHRINE 4 MG in SODIUM CHLORIDE 0.9% 250 ML IV SCH ×2 (03:42→18:53)
[2019-05-25 04:40] LABS: Glucose,Whole Blood 313 mg/dL (75-99)
[2019-05-25 04:47] LABS: Anisocytosis Slight; Basophils % (A) 0 %; Eosinophils # (A) 0.1 k/uL (0-0.7); Eosinophils % (A) 1 %; HCT 35.2 % (34.0-46.0); HGB 10.7 gm/dL (11.4-16.0); Hypochromasia Slight; Lymphocytes # (A) 0.6 k/uL (1.0-4.8); Lymphocytes % (A) 5 %; MCH 29.4 pg (25.0-35.0); MCHC 30.3 g/dL (31.0-37.0); MCV 96.9 fL (80.0-100.0); Macrocytosis Slight; Monocytes # (A) 0.5 k/uL (0-1.0); Monocytes % (A) 4 %; Neutrophils # (A) 10.9 k/uL (1.3-7.7); Neutrophils % (A) 91 %; Platelet Count 188 k/uL (150-450); RBC 3.63 m/uL (3.80-5.40); RDW 18.7 % (11.5-15.5); WBC 12.1 k/uL (3.8-10.6)
[2019-05-25 05:01] LABS: African American GFR (CKD) >90 (>60 ml/min/1.73 sqM); Anion Gap 8 mmol/L; Blood Urea Nitrogen 19 mg/dL (7-17); Calcium 7.2 mg/dL (8.4-10.2); Carbon Dioxide 20 mmol/L (22-30); Chloride 106 mmol/L (98-107); Glucose 323 mg/dL (74-99); Potassium 4.7 mmol/L (3.5-5.1); Sodium 134 mmol/L (137-145)
[2019-05-25] MEDS: INSULIN ASPART (NovoLOG) 100 UNIT/ML VIAL SQ SCH ×5 (05:11→21:13)
[2019-05-25] MEDS: SODIUM CHLORIDE 0.9% 1,000 ML IV SCH (05:11)
[2019-05-25] MEDS: GABAPENTIN 100 MG CAP PO SCH ×3 (05:12→20:55)
[2019-05-25 08:53] LABS: Glucose,Whole Blood 188 mg/dL (75-99)
[2019-05-25] MEDS: CEFEPIME 2 GM in SODIUM CHLORIDE 0.9% 100 ML IVPB SCH ×2 (09:02→21:02)
[2019-05-25] MEDS: DICLOFENAC SODIUM GEL 100 GM TUBE TOPICAL SCH ×4 (09:02→21:06)
[2019-05-25] MEDS: SERTRALINE 25 MG TAB PO SCH (09:03)
[2019-05-25] MEDS: POTASSIUM CHLORIDE ER 10 MEQ TAB.ER.PRT PO SCH (09:03)
[2019-05-25] MEDS: METOPROLOL TARTRATE 12.5 MG TAB PO SCH ×2 (09:04→16:32)
[2019-05-25] MEDS: SPIRONOLACTONE 25 MG TAB PO SCH (09:04)
[2019-05-25] MEDS: MIDODRINE 5 MG TAB PO SCH ×2 (09:04→17:40)
[2019-05-25] MEDS: PANTOPRAZOLE 40 MG TABLET PO SCH (09:05)
[2019-05-25] MEDS: MAGNESIUM OXIDE 400 MG TAB PO SCH ×2 (09:05→17:40)
[2019-05-25] MEDS: OXYBUTYNIN XL 5 MG TAB.ER.24 PO SCH (09:05)
[2019-05-25] MEDS: URSODIOL 300 MG CAP PO SCH ×2 (09:06→20:55)
[2019-05-25] MEDS: SIMETHICONE 80 MG CHEWABLE PO SCH ×3 (09:06→17:40)
[2019-05-25] MEDS: ATORVASTATIN 40 MG TAB PO SCH (09:06)
[2019-05-25] MEDS: PENTOXIFYLLINE 400 MG TABLET.ER PO SCH ×3 (09:06→17:40)
[2019-05-25] MEDS: AMIODARONE 200 MG TAB PO SCH (09:06)
[2019-05-25] MEDS: FUROSEMIDE 10 MG/ML 4 ML VIAL IV SCH ×2 (09:08→20:57)
--- NOTE | 2019-05-25 09:23 | XR ---
EXAMINATION TYPE: XR chest 1V portable DATE OF EXAM: 05/25/2019 COMPARISON: Prior chest x-ray 05/24/2019 HISTORY: Shortness of breath TECHNIQUE: Single frontal view of the chest is obtained. FINDINGS: The patient is rotated. Pleural parenchymal changes are similar to prior exam. There is no evident pneumothorax. Heart is enlarged. Intracardiac defibrillator lead is stable, generator in the left pectoral region. Pulmonary artery is distended, correlate for pulmonary artery hypertension. Th ere are overlying cardiac leads. IMPRESSION: Bibasilar effusions and associated edema, correlate to exclude pneumonia versus atelecta sis. Correlate for congestive heart failure, additional findings above.
[2019-05-25] MEDS: traMADol 50 MG TAB PO PRN (10:52)
--- NOTE | 2019-05-25 11:51 | P.PN ---
Subjective This is a pleasant 83 years old female with multiple medical problems presents to the emergency room with hyperthermia, hypo-glycemia and found to have bilateral pleural effusion secondary to acute congestive heart failure. Her ejection fraction 30-35%. Status post left side thoracocentesis on 05/24/2019. Also she has history of pulmonary embolism status post IVC filter secondary to GI bleed. She is status post AICD. She has chronic bilateral feet want that been followed by Dr. dash. Also she has history of ESBL E. coli. Patient herself is poor historian. However she is sitting in chair comfortable in mild distress due to her pain and ulcers including bilateral feet ulcer and pressure ulcer, stage II. Review of systems: Non-applicable. Patient is poor historian and could not provide information Active Medications Generic Name Dose Route Start Last Admin Trade Name Freq PRN Reason Stop Dose Admin Acetaminophen 325 mg 05/24/19 02:20 Tylenol Tab PO Q6HR PRN Fever and/ or Pain Amiodarone HCl 200 mg 05/24/19 14:45 05/25/19 09:06 Cordarone PO Not Given DAILY KEVEN Atorvastatin Calcium 40 mg 05/25/19 09:00 05/25/19 09:06 Lipitor PO 40 mg DAILY KEVEN Administration Bisacodyl 10 mg 05/24/19 14:41 Dulcolax RECTAL DAILY PRN Constipation Clonazepam 0.5 mg 05/24/19 21:00 Klonopin PO BID PRN anxiety Diclofenac Sodium 2 gm 05/24/19 18:00 05/25/19 09:02 Voltaren Gel TOPICAL 2 gm QID EKVEN Administration Furosemide 40 mg 05/25/19 09:00 05/25/19 09:08 Lasix IV 40 mg Q12HR KEVEN Administration Gabapentin 100 mg 05/24/19 21:00 05/25/19 05:12 Neurontin PO 100 mg TID@0600,1400,2100 KEVEN Administration Norepinephrine Bitartrate 4 mg 254 mls @ 12.961 mls/hr 05/24/19 02:15 05/25/19 03:42 / Sodium Chloride IV 0.15 mcg/kg/min .[id number] KEVEN 38.884 mls/hr Administration Protocol 0.05 MCG/KG/MIN Vancomycin HCl 1,250 mg/ 250 mls @ 125 mls/hr 05/24/19 23:00 05/24/19 22:46 Sodium Chloride IVPB 125 mls/hr Q16H KEVEN Administration Cefepime HCl 2 gm/ Sodium 100 mls @ 200 mls/hr 05/25/19 09:00 05/25/19 09:02 Chloride IVPB 200 mls/hr Q12HR KEVEN Administration Sodium Chloride 1,000 mls @ 50 mls/hr 05/25/19 05:15 05/25/19 05:11 Saline 0.9% IV 50 mls/hr .Q20H KEVEN Administration Insulin Aspart 0 unit 05/25/19 05:03 05/25/19 09:04 Novolog SQ 2 unit ACHS KEVEN Administration Protocol Magnesium Oxide 400 mg 05/24/19 17:00 05/25/19 09:05 Mag-Ox PO 400 mg BID@0800,1700 KEVEN Administration Methyl Salicylate 1 applic 05/24/19 14:41 Thera-Gesic Cream TOPICAL DAILY PRN LEFT SHOULDER PAIN Metoprolol Tartrate 12.5 mg 05/24/19 16:00 05/25/19 09:04 Lopressor PO Not Given TID [facility] Midodrine 2.5 mg 05/24/19 17:30 05/25/19 09:04 Proamatine PO 2.5 mg AC-BID KEVEN Administration Miscellaneous Information 1 each 05/26/19 06:00 Vancomycin Trough Due MISCELLANE 05/26/19 06:01 ONCE ONE Naloxone HCl 0.2 mg 05/24/19 02:15 Narcan IV Q2M PRN Opioid Reversal Ondansetron HCl 4 mg 05/24/19 14:41 05/24/19 21:16 Zofran PO 4 mg QID PRN Administration Nausea Oxybutynin Chloride 10 mg 05/25/19 08:00 05/25/19 09:05 Ditropan Xl PO 10 mg DAILY@0800 KEVEN Administration Pantoprazole Sodium 40 mg 05/24/19 14:45 05/25/19 09:05 Protonix PO 40 mg AC-BRKFST KEVEN Administration Pentoxifylline 400 mg 05/24/19 17:00 05/25/19 09:06 Trental PO 400 mg TID@0800,1200,1700 KEVEN Administration Potassium Chloride 10 meq 05/25/19 09:00 05/25/19 09:03 K-Dur 10 PO Not Given DAILY KEVEN Sertraline HCl 25 mg 05/24/19 14:45 05/25/19 09:03 Zoloft PO 25 mg DAILY KEVEN Administration Simethicone 80 mg 05/24/19 17:00 05/25/19 09:06 Mylicon Chew PO 80 mg TID@0800,1200,1700 KEVEN Administration Spironolactone 12.5 mg 05/25/19 09:00 05/25/19 09:04 Aldactone PO Not Given DAILY KEVEN Thiamine HCl 100 mg 05/24/19 17:00 05/24/19 17:49 Vitamin B-1 PO 100 mg DAILY@1700 KEVEN Administration Tramadol HCl 25 mg 05/24/19 14:41 05/25/19 10:52 Ultram PO 25 mg Q6HR PRN Administration Severe Pain Ursodiol 300 mg 05/24/19 21:00 05/25/19 09:06 Actigall PO 300 mg BID@0800,2100 KEVEN Administration Objective - Vital Signs Vital signs: Vital Signs Temp 98.6 F 05/25/19 08:00 Pulse 79 05/25/19 11:00 Resp 14 05/25/19 10:30 BP 78/43 05/25/19 11:00 Pulse Ox 96 05/25/19 11:00 Intake & Output 05/24/19 05/25/19 05/25/19 18:59 06:59 18:59 Intake Total 1883.626 8870.063 200 Output Total 1980 285 170 Balance -084.338 5190.063 30 Weight 72.1 kg Intake: IV 1440 1330 200 Dextrose 5%-0.9% NaCl 1, 240 30 000 ml @ 20 mls/hr IV . Q24H [facility] Rx#:[id number] Piperacillin-Tazobactam 3 200 .375 gm In Sodium Chloride 0.9% 100 ml @ 25 mls/hr IVPB Q8H [facility] Rx#: [id number] Sodium Chloride 0.9% 1, 300 200 000 ml @ 50 mls/hr IV . Q20H [facility] Rx#:[id number] Sodium Chloride 0.9% 1, 1000 750 000 ml @ 999 mls/hr IV . Q1H1M ONE Rx#:[id number] Vancomycin 1,250 mg In 250 Sodium Chloride 0.9% 250 ml @ 125 mls/hr IVPB ONCE ONE Rx#:[id number] Intake, IV Titration 97.511 327.063 Amount Norepinephrine 4 mg In 97.511 327.063 Sodium Chloride 0.9% 250 ml @ 0.05 MCG/KG/MIN 12. 961 mls/hr IV .[id number] [facility] Rx#:[id number] Output: Urine 880 285 170 Other 1100 Other: Voiding Method Indwelling Catheter Indwelling Catheter Indwelling Catheter - Exam -GENERAL: The patient is alert and oriented x1-2, not in any acute distress. Well developed, well nourished. HEENT: Pupils are round and equally reacting to light. EOMI. No scleral icterus. No conjunctival pallor. Normocephalic, atraumatic. No pharyngeal erythema. No thyromegaly. CARDIOVASCULAR: S1 and S2 present. No murmurs, rubs, or gallops. PULMONARY: Chest is clear to auscultation, no wheezing or crackles. ABDOMEN: Soft, nontender, nondistended, normoactive bowel sounds. No palpable organomegaly. -MUSCULOSKELETAL: No joint swelling or deformity. Stage II decubitus sacral ulcer -EXTREMITIES: No cyanosis, clubbing,. She has swelling in all extremities. B ilateral foot wounds NEUROLOGICAL: Gross neurological examination did not reveal any focal deficits. SKIN: No rashes. - Labs CBC & Chem 7: 05/25/19 04:40 05/25/19 04:40 Labs: Abnormal Lab Results - Last 24 Hours (Table) 05/24/19 05/24/19 05/25/19 Range/Units 16:44 20:45 00:59 WBC (3.8-10.6) k/uL RBC (3.80-5.40) m/uL Hgb (11.4-16.0) gm/dL MCHC (31.0-37.0) g/dL RDW (11.5-15.5) % Neutrophils # (1.3-7.7) k/uL Lymphocytes # (1.0-4.8) k/uL Sodium (137-145) mmol/L Carbon Dioxide (22-30) mmol/L BUN (7-17) mg/dL Glucose (74-99) mg/dL POC Glucose (mg/dL) 74 L 219 H 227 H (75-99) mg/dL Calcium (8.4-10.2) mg/dL 05/25/19 05/25/19 05/25/19 Range/Units 04:38 04:40 04:40 WBC 12.1 H (3.8-10.6) k/uL RBC 3.63 L (3.80-5.40) m/uL Hgb 10.7 L (11.4-16.0) gm/dL MCHC 30.3 L (31.0-37.0) g/dL RDW 18.7 H (11.5-15.5) % Neutrophils # 10.9 H (1.3-7.7) k/uL Lymphocytes # 0.6 L (1.0-4.8) k/uL Sodium 134 L (137-145) mmol/L Carbon Dioxide 20 L (22-30) mmol/L BUN 19 H (7-17) mg/dL Glucose 323 H (74-99) mg/dL POC Glucose (mg/dL) 313 H (75-99) mg/dL Calcium 7.2 L (8.4-10.2) mg/dL 05/25/19 Range/Units 08:33 WBC (3.8-10.6) k/uL RBC (3.80-5.40) m/uL Hgb (11.4-16.0) gm/dL MCHC (31.0-37.0) g/dL RDW (11.5-15.5) % Neutrophils # (1.3-7.7) k/uL Lymphocytes # (1.0-4.8) k/uL Sodium (137-145) mmol/L Carbon Dioxide (22-30) mmol/L BUN (7-17) mg/dL Glucose (74-99) mg/dL POC Glucose (mg/dL) 188 H (75-99) mg/dL Calcium (8.4-10.2) mg/dL Microbiology - Last 24 Hours (Table) 05/24/19 13:30 Gram Stain - Preliminary Pleural Fluid Body Fluid Culture - Preliminary 05/23/19 22:47 Blood Culture - Preliminary Blood No Growth after 24 hours 05/24/19 06:30 Urine Culture - Preliminary Urine,Catheterized Assessment and Plan Assessment: -Severe sepsis secondary to pressure ulcers on bilateral feet wound. Patient might have some elements of metabolic encephalopathy as well. -Systemic inflammatory response with leukocytosis and hyperthermia, with tachycardia and tachypnea present on admission -Bilateral pleural effusion secondary to acute systolic on chronic congestive heart failure. Ejection fraction 30-35% -History of pulmonary embolism status post IVC filter secondary to GI bleed -Bilateral heel wounds that follow-up as an outpatient -History of ESBL E. coli UTI. Plan: This is a pleasant 83 years old female who presents with infection and congestive heart failure. Continue with antibiotics as per ID team recommendation. She is a status post thoracocentesis, follow-up Results. Follow-up recommendation from pulmonary/critical care team. Labs and medication were reviewed.. Continue same treatment. Continue with symptomatic treatment. Resume home medication. Monitor lytes and vitals. DVT and GI prophylaxis. Further recommendations of the clinical course of the patient Prognosis is guarded
[2019-05-25 12:03] LABS: Glucose,Whole Blood 215 mg/dL (75-99)
--- NOTE | 2019-05-25 13:05 | P.PN ---
Subjective Progress Note Date: 05/25/19 Principal diagnosis: Recurrent episodes of hypoglycemia, metabolic encephalopathy, and bilateral pleural effusions. this is an 83-year-old female with history of multiple medical problems including chronic atrial fibrillation, type 2 diabetes,coronary artery disease, hypertension, LV dysfunction with ejection fraction of 35%, previous AICD placement, diabetic ulcers in both feet bilaterally, recurrent urinary tract infections, previous ESBL urinary tract infection, cervical cancer, severe peripheral vessel occlusive disease, patient is a snf patient, brought in yesterday mostly with complaints of mental status change, patient was noted to be confused, weak, did not eat her dinner, and she was noted to have hypoglycemia with blood sugar about 43. Patient was given glucagon injection by the snf staff, her sugar came up to 51, and IV could not be esta blished. EMS arrived to the scene, and she was given 1 amp of D50. Her blood sugar improved, patient became more alert, and arrangements were made to transfer the patient to the hospital ER. Upon arrival to the ER, patient was noted to be hypotensive, apparently CODE STATUS was discussed with the patient, and it was confirmed to be DO NOT RESUSCITATE. Initially the family declined having a central line placement, however as there was extreme difficulty in establishing a peripheral IV access, finally the daughter agreed to a central line which was placed by the ER physician in the left groin. Patient had a chest x-ray which showed significant pleural effusion bilaterally. And a CT of the chest read as no evidence of pulmonary embolism, however as I reviewed the CT of the chest, discussed the findings with Dr. 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 It is similar to previous CT done on her last admission. Patient has been on Eliquis for DVT and pulmonary embolism. And supposedly compliant with it. In addition the CT of the chest showed significant bilateral pleural effusions right more so than left, and this was confirmed by ultrasound today. Patient was admitted to the ICU but she did not require any norepinephrine. She was given few fluid boluses in the ER, and her blood pressure seems to be stable at this point. She was placed on vancomycin and Levaquin empirically. Reevaluated today on 05/25/2019, patient remains in the ICU, she is presently on room air, however she is requiring 0.04 mcg/kg/m of norepinephrine. Blood pressures seems to be marginal. Patient had a follow-up chest x-ray this morning showed small bilateral pleural effusions, she underwent right sided thoracentesis yesterday, and I was able to drain about 1100 mL of free flowing fluid, most likely transudative in nature, workup is pending on the fluid. Again the patient is feeling great but since she remains on norepinephrine, I will keep in the ICU and was she is off norepinephrine we could possibly transferred to a regular medical floor. In the meantime she is receiving antibiotics, she is back on her anticoagulation therapy for pulmonary embolism, and she is on diuretics. She is being followed by many consultants. Objective - Vital Signs Vital signs: Vital Signs Temp 97.9 F 05/25/19 12:01 Pulse 86 05/25/19 12:31 Resp 11 L 05/25/19 12:31 BP 102/48 05/25/19 12:31 Pulse Ox 96 05/25/19 12:31 Intake & Output 05/24/19 05/25/19 05/25/19 18:59 06:59 18:59 Intake Total 4358.839 6731.063 250 Output Total 1980 285 420 Balance -015.597 9887.063 -170 Weight 72.1 kg 72.1 kg Intake: IV 1440 1330 250 Dextrose 5%-0.9% NaCl 1, 240 30 000 ml @ 20 mls/hr IV . Q24H [facility] Rx#:[id number] Piperacillin-Tazobactam 3 200 .375 gm In Sodium Chloride 0.9% 100 ml @ 25 mls/hr IVPB Q8H [facility] Rx#: [id number] Sodium Chloride 0.9% 1, 300 250 000 ml @ 50 mls/hr IV . Q20H [facility] Rx#:[id number] Sodium Chloride 0.9% 1, 1000 750 000 ml @ 999 mls/hr IV . Q1H1M ONE Rx#:[id number] Vancomycin 1,250 mg In 250 Sodium Chloride 0.9% 250 ml @ 125 mls/hr IVPB ONCE ONE Rx#:[id number] Intake, IV Titration 97.511 327.063 Amount Norepinephrine 4 mg In 97.511 327.063 Sodium Chloride 0.9% 250 ml @ 0.05 MCG/KG/MIN 12. 961 mls/hr IV .[id number] [facility] Rx#:[id number] Output: Urine 880 285 420 Other 1100 Other: Voiding Method Indwelling Catheter Indwelling Catheter Indwelling Catheter - Exam Physical Exam: Revealed 83-year-old female in no distress. Sitting at a bedside chair, on room air, in no distress. Head: Atraumatic, normocephalic. HEENT:[Neck is supple.] [No neck masses.] [No thyromegaly.] [No JVD.] PERRLA, EOMI, no icterus. Chest: [Symmetrical chest expansion, diminished breath sounds and dullness at the bases bilaterally. Cardiac Exam: Irregular irregular rhythm. [Normal S1 and S2, no S3 gallop, 2/6 systolic murmur thought the precordium.] Abdomen: [obese,Soft, nontender, no megaly, no rebound, no guarding, normal bowel sounds.] Extremities: [No clubbing, 1+ bipedal edema, no cyanosis, multiple foot ulcers were noted,on both feet. wrapped with sterile dressing, been evaluated in the past by vascular surgery and infectious disease for her ulcers. Neurological Exam: Alert and oriented 3, no gross focal deficits. Psychiatric: Normal mood, affect and poor mental status. Musculoskeletal: No gross focal deficit. No limitation in range of motion skin: As noted above under extremities. Multiple deep ulcers noted on both feet bilaterally. - Labs CBC & Chem 7: 05/25/19 04:40 05/25/19 04:40 Labs: Abnormal Lab Results - Last 24 Hours (Table) 05/24/19 05/24/19 05/25/19 Range/Units 16:44 20:45 00:59 WBC (3.8-10.6) k/uL RBC (3.80-5.40) m/uL Hgb (11.4-16.0) gm/dL MCHC (31.0-37.0) g/dL RDW (11.5-15.5) % Neutrophils # (1.3-7.7) k/uL Lymphocytes # (1.0-4.8) k/uL Sodium (137-145) mmol/L Carbon Dioxide (22-30) mmol/L BUN (7-17) mg/dL Glucose (74-99) mg/dL POC Glucose (mg/dL) 74 L 219 H 227 H (75-99) mg/dL Calcium (8.4-10.2) mg/dL 05/25/19 05/25/19 05/25/19 Range/Units 04:38 04:40 04:40 WBC 12.1 H (3.8-10.6) k/uL RBC 3.63 L (3.80-5.40) m/uL Hgb 10.7 L (11.4-16.0) gm/dL MCHC 30.3 L (31.0-37.0) g/dL RDW 18.7 H (11.5-15.5) % Neutrophils # 10.9 H (1.3-7.7) k/uL Lymphocytes # 0.6 L (1.0-4.8) k/uL Sodium 134 L (137-145) mmol/L Carbon Dioxide 20 L (22-30) mmol/L BUN 19 H (7-17) mg/dL Glucose 323 H (74-99) mg/dL POC Glucose (mg/dL) 313 H (75-99) mg/dL Calcium 7.2 L (8.4-10.2) mg/dL 05/25/19 05/25/19 Range/Units 08:33 12:00 WBC (3.8-10.6) k/uL RBC (3.80-5.40) m/uL Hgb (11.4-16.0) gm/dL MCHC (31.0-37.0) g/dL RDW (11.5-15.5) % Neutrophils # (1.3-7.7) k/uL Lymphocytes # (1.0-4.8) k/uL Sodium (137-145) mmol/L Carbon Dioxide (22-30) mmol/L BUN (7-17) mg/dL Glucose (74-99) mg/dL POC Glucose (mg/dL) 188 H 215 H (75-99) mg/dL Calcium (8.4-10.2) mg/dL Microbiology - Last 24 Hours (Table) 05/24/19 13:30 Gram Stain - Preliminary Pleural Fluid Body Fluid Culture - Preliminary 05/23/19 22:47 Blood Culture - Preliminary Blood No Growth after 24 hours 05/24/19 06:30 Urine Culture - Preliminary Urine,Catheterized Assessment and Plan Assessment: impression: 1 recurrent episodes of hypoglycemia, most likely secondary to poor oral intake, and the patient is on medications for diabetes, given to her at the snf. This has resolved. 2 acute metabolic encephalopathy secondary to hypoglycemia. Significantly improved since yesterday. 3 recurrent episodes of urinary tract infection secondary to ESBL E. coli and pseudomonas aeruginosa. 3 bilateral pleural effusions secondary to systolic congestive heart failure. Status post right sided thoracentesis on 05/24/2019, 1100 mL of fluid drained from the right pleural space. 4 history of pulmonary embolism documented on previous admission, and noted on CT of the chest on this admission. 5 chronic atrial fibrillation 6 LV dysfunction with ejection fraction of 35% and previous AICD placement 7 underlying coronary artery disease 8 diabetic foot ulcers 9 type 2 diabetes 10 history of chronic pancreatitis 11 severe peripheral vessel occlusive disease involving lower extremities. 12 medical debility. Recommendation: Continue antibiotics, diuretics, norepinephrine to be titrated to maintain a mean arterial pressure above 60. CODE STATUS remains the same, will continue to follow. Overall long-term prognosis is extremely poor and guarded. Considering the multiple comorbidities as noted above. CODE STATUS remains DO NOT RESUSCITATE. Time with Patient: Less than 30
--- NOTE | 2019-05-25 15:32 | PN ---
PROGRESS NOTE DATE OF SERVICE: 05/25/2019 REASON FOR FOLLOW UP: 1. Bilateral diabetic foot wounds. 2. Sacral wound. 3. Urinary tract infection. INTERVAL HISTORY: The patient is currently afebrile. Patient is status thoracentesis yesterday. The patient tolerated the procedure. She is hemodynamically stable. No nausea, no vomiting, no abdominal pain, no diarrhea. Daughter present on the bedside. PHYSICAL EXAMINATION: Blood pressure 104/50 with a pulse of 90, temperature 98, she is 95% on 2 L nasal cannula. General description is an elderly female, lying in bed in no distress. RESPIRATORY SYSTEM: Unlabored breathing with decreased breath sounds at the base, no wheeze. HEART: S1, S2. Regular rate and rhythm. ABDOMEN: Soft, no tenderness. Wounds on the foot are currently dressed up with no obvious drainage on the dressing. LABS: Hemoglobin is 10.1, white count 12.1, BUN of 19, creatinine 0.62. The pleural fluid, glucose, protein, not significantly elevated. Gram stain, cultures are so far negative. DIAGNOSTIC IMPRESSION AND PLAN: 1. Patient admitted to the hospital with low blood sugars in the 100 have significant pleural effusion, status post with thoracentesis, cultures currently pending. Patient covered with vancomycin and cefepime to monitor clinical course and culture closely. 2. Bilateral diabetic foot wound. Clinically no evidence of any cellulitis. Local wound care with Medihoney, keep the area off the pressure. Daughter at the bedside, questions were answered. MMODL / IJN: [id number] /
[2019-05-25] MEDS: VANCOMYCIN 1,250 MG in SODIUM CHLORIDE 0.9% 250 ML IVPB SCH (15:39)
[2019-05-25 17:23] LABS: Glucose,Whole Blood 186 mg/dL (75-99)
[2019-05-25] MEDS: THIAMINE 100 MG TAB PO SCH (17:40)
[2019-05-25 21:26] LABS: Glucose,Whole Blood 217 mg/dL (75-99)
[2019-05-26 00:49] LABS: Magnesium 1.5 mg/dL (1.6-2.3); Potassium 3.6 mmol/L (3.5-5.1)
[2019-05-26] MEDS: METOPROLOL TARTRATE 12.5 MG TAB PO SCH ×4 (00:56→21:19)
[2019-05-26] MEDS: MAGNESIUM SULFATE-D5W PMX 1 GM in DEXTROSE/WATER 1 100ML.BAG IVPB SCH ×2 (00:59→02:12)
[2019-05-26] MEDS: NOREPINEPHRINE 4 MG in SODIUM CHLORIDE 0.9% 250 ML IV SCH ×2 (02:13→12:46)
[2019-05-26] MEDS: SODIUM CHLORIDE 0.9% 1,000 ML IV SCH ×2 (02:14→21:21)
[2019-05-26 05:25] LABS: Anisocytosis Slight; Basophils % (A) 0 %; Eosinophils # (A) 0.1 k/uL (0-0.7); Eosinophils % (A) 1 %; HCT 35.6 % (34.0-46.0); HGB 11.2 gm/dL (11.4-16.0); Lymphocytes # (A) 1.2 k/uL (1.0-4.8); Lymphocytes % (A) 13 %; MCH 29.7 pg (25.0-35.0); MCHC 31.6 g/dL (31.0-37.0); MCV 94.2 fL (80.0-100.0); Macrocytosis Slight; Monocytes # (A) 0.5 k/uL (0-1.0); Monocytes % (A) 6 %; Neutrophils # (A) 7.6 k/uL (1.3-7.7); Neutrophils % (A) 80 %; Platelet Count 169 k/uL (150-450); RBC 3.78 m/uL (3.80-5.40); RDW 18.5 % (11.5-15.5); WBC 9.5 k/uL (3.8-10.6)
[2019-05-26 05:34] LABS: ALT 23 U/L (9-52); AST 17 U/L (14-36); African American GFR (CKD) >90 (>60 ml/min/1.73 sqM); Albumin 1.9 g/dL (3.5-5.0); Alkaline Phosphatase 106 U/L (38-126); Anion Gap 4 mmol/L; Blood Urea Nitrogen 17 mg/dL (7-17); Calcium 7.6 mg/dL (8.4-10.2); Carbon Dioxide 27 mmol/L (22-30); Chloride 105 mmol/L (98-107); Glucose 64 mg/dL (74-99); Potassium 3.6 mmol/L (3.5-5.1); Sodium 136 mmol/L (137-145); Total Bilirubin 0.4 mg/dL (0.2-1.3); Total Protein 4.4 g/dL (6.3-8.2)
[2019-05-26] MEDS ORDERED: VANCOMYCIN TROUGH DUE 1 EACH MISC MISCELLANE ONE (06:00)
[2019-05-26] MEDS: GABAPENTIN 100 MG CAP PO SCH ×3 (06:14→20:58)
[2019-05-26] MEDS: VANCOMYCIN 1,250 MG in SODIUM CHLORIDE 0.9% 250 ML IVPB SCH ×2 (06:15→23:20)
[2019-05-26] MEDS: INSULIN ASPART (NovoLOG) 100 UNIT/ML VIAL SQ SCH ×4 (06:45→20:49)
[2019-05-26 07:14] LABS: Glucose,Whole Blood 83 mg/dL (75-99)
--- NOTE | 2019-05-26 07:40 | XR ---
EXAMINATION TYPE: XR chest 1V portable DATE OF EXAM: 05/26/2019 HISTORY: CHF/effusion. REFERENCE: Previous study dated 05/25/2019. FINDINGS: There is a unipolar pacemaker place on the left. The heart is enlarged. There is bibasilar airspace disease. There are bilateral effusions. IMPRESSION: 1. CONTINUING CARDIOMEGALY. 2. WORSENING BIBASILAR AIRSPACE DISEASE. 3. BILATERAL EFFUSIONS. 4. INCIDENTAL NOTE IS MADE OF OLD RIGHT-SIDED RIB FRACTURES.
[2019-05-26] MEDS: DICLOFENAC SODIUM GEL 100 GM TUBE TOPICAL SCH ×4 (09:19→22:27)
[2019-05-26] MEDS: MIDODRINE 5 MG TAB PO SCH ×2 (09:20→16:30)
[2019-05-26] MEDS: PENTOXIFYLLINE 400 MG TABLET.ER PO SCH ×3 (09:21→16:30)
[2019-05-26] MEDS: MAGNESIUM OXIDE 400 MG TAB PO SCH ×2 (09:21→16:30)
[2019-05-26] MEDS: OXYBUTYNIN XL 5 MG TAB.ER.24 PO SCH (09:21)
[2019-05-26] MEDS: PANTOPRAZOLE 40 MG TABLET PO SCH (09:21)
[2019-05-26] MEDS: URSODIOL 300 MG CAP PO SCH ×2 (09:22→20:58)
[2019-05-26] MEDS: AMIODARONE 200 MG TAB PO SCH (09:22)
[2019-05-26] MEDS: CEFEPIME 2 GM in SODIUM CHLORIDE 0.9% 100 ML IVPB SCH ×2 (09:22→20:59)
[2019-05-26] MEDS: ATORVASTATIN 40 MG TAB PO SCH (09:22)
[2019-05-26] MEDS: SIMETHICONE 80 MG CHEWABLE PO SCH ×3 (09:22→16:30)
[2019-05-26] MEDS: POTASSIUM CHLORIDE ER 10 MEQ TAB.ER.PRT PO SCH (09:23)
[2019-05-26] MEDS: FUROSEMIDE 10 MG/ML 4 ML VIAL IV SCH ×2 (09:23→20:58)
[2019-05-26] MEDS: SERTRALINE 25 MG TAB PO SCH (09:23)
[2019-05-26] MEDS: SPIRONOLACTONE 25 MG TAB PO SCH (09:23)
--- NOTE | 2019-05-26 09:33 | P.PN ---
Subjective This is a pleasant 83 years old female with multiple medical problems presents to the emergency room with hyperthermia, hypo-glycemia and found to have bilateral pleural effusion secondary to acute congestive heart failure. Her ejection fraction 30-35%. Status post left side thoracocentesis on 05/24/2019. Also she has history of pulmonary embolism status post IVC filter secondary to GI bleed. She is status post AICD. She has chronic bilateral feet want that been followed by Dr. dash. Also she has history of ESBL E. coli. Patient herself is poor historian. However she is sitting in chair comfortable in mild distress due to her pain and ulcers including bilateral feet ulcer and pressure ulcer, stage II. 05/26/2019 Patient remains in the ICU. She is more awake and oriented today she's knows that she is at [facility] and [place] [id number] and [facility]. She was comfortable not complaining from pain. She is not interested respiratory distress. However she's hard hearing and slow to respond. She still on norepinephrine drip. Vitas looks stable with blood pressure 103/57, she is saturating 93% of oxygen on room air. She is afebrile. Labs reviewed some looks stable within WBC of 9.5K and creatinine 0.5. Patient is making good urine output after Lasix 40 mg twice a day was started yesterday. She remains on cefepime and IV vancomycin. She was also on amiodarone and small dose of metoprolol. Discussed with staff and review of records from nursing homes. Patient looks like she was taken Eliquis at correction despite history of GI bleed. The go to start her Eliquis and call cardiology consult. Patient has DO NOT RESUSCITATE order Review of systems CONSTITUTIONAL: No fever, no malaise, no fatigue. HEENT: No recent visual problems or hearing problems. Denied any sore throat. CARDIOVASCULAR: No orthopnea, PND, no palpitations, no syncope. PULMONARY: No shortness of breath, no cough, no hemoptysis. GASTROINTESTINAL: No diarrhea, no nausea, no vomiting, no abdominal pain. Normoactive bowel sounds. NEUROLOGICAL: No headaches, no weakness, no numbness. HEMATOLOGICAL: Denies any bleeding or petechiae. GENITOURINARY: Denies any burning micturition, frequency, or urgency. MUSCULOSKELETAL/RHEUMATOLOGICAL: Denies any joint pain, swelling, or any muscle pain. ENDOCRINE: Denies any polyuria or polydipsia. Active Medications Generic Name Dose Route Start Last Admin Trade Name Freq PRN Reason Stop Dose Admin Acetaminophen 325 mg 05/24/19 02:20 Tylenol Tab PO Q6HR PRN Fever and/ or Pain Amiodarone HCl 200 mg 05/24/19 14:45 05/26/19 09:22 Cordarone PO 200 mg DAILY [facility] Administration Atorvastatin Calcium 40 mg 05/25/19 09:00 05/26/19 09:22 Lipitor PO 40 mg DAILY [facility] Administration Bisacodyl 10 mg 05/24/19 14:41 Dulcolax RECTAL DAILY PRN Constipation Clonazepam 0.5 mg 05/24/19 21:00 Klonopin PO BID PRN anxiety Diclofenac Sodium 2 gm 05/24/19 18:00 05/26/19 09:19 Voltaren Gel TOPICAL 2 gm QID [facility] Administration Furosemide 40 mg 05/25/19 09:00 05/26/19 09:23 Lasix IV 40 mg Q12HR [facility] Administration Gabapentin 100 mg 05/24/19 21:00 05/26/19 06:14 Neurontin PO 100 mg TID@0600,1400,2100 [facility] Administration Norepinephrine Bitartrate 4 mg 254 mls @ 12.961 mls/hr 05/24/19 02:15 02:13 / Sodium Chloride IV 0.11 mcg/kg/min .[id number] [facility] 28.515 mls/hr Administration Protocol 0.05 MCG/KG/MIN Vancomycin HCl 1,250 mg/ 250 mls @ 125 mls/hr 05/24/19 23:00 05/26/19 06:15 Sodium Chloride IVPB 125 mls/hr Q16H [facility] Administration Cefepime HCl 2 gm/ Sodium 100 mls @ 200 mls/hr 05/25/19 09:00 05/26/19 09:22 Chloride IVPB 200 mls/hr Q12HR [facility] Administration Sodium Chloride 1,000 mls @ 50 mls/hr 05/25/19 05:15 05/26/19 02:14 Saline 0.9% IV Not Given .Q20H [facility] Insulin Aspart 0 unit 05/25/19 05:03 05/26/19 06:45 Novolog SQ Not Given ACHS [facility] Protocol Magnesium Oxide 400 mg 05/24/19 17:00 09/14/19 09:21 Mag-Ox PO 400 mg BID@0800,1700 [facility] Administration Methyl Salicylate 1 applic 05/24/19 14:41 Thera-Gesic Cream TOPICAL DAILY PRN LEFT SHOULDER PAIN Metoprolol Tartrate 12.5 mg 05/24/19 16:00 05/26/19 09:23 Lopressor PO 12.5 mg TID [facility] Administration Midodrine 2.5 mg 05/24/19 17:30 05/26/19 09:20 Proamatine PO 2.5 mg AC-BID [facility] Administration Naloxone HCl 0.2 mg 05/24/19 02:15 Narcan IV Q2M PRN Opioid Reversal Ondansetron HCl 4 mg 05/24/19 14:41 05/24/19 21:16 Zofran PO 4 mg QID PRN Administration Nausea Oxybutynin Chloride 10 mg 05/25/19 08:00 05/26/19 09:21 Ditropan Xl PO 10 mg DAILY@0800 [facility] Administration Pantoprazole Sodium 40 mg 05/24/19 14:45 05/26/19 09:21 Protonix PO 40 mg AC-BRKFST [facility] Administration Pentoxifylline 400 mg 05/24/19 17:00 05/26/19 09:21 Trental PO 400 mg TID@0800,1200,1700 [facility] Administration Potassium Chloride 10 meq 05/25/19 09:00 05/26/19 09:23 K-Dur 10 PO 10 meq DAILY [facility] Administration Sertraline HCl 25 mg 05/24/19 14:45 05/26/19 09:23 Zoloft PO 25 mg DAILY [facility] Administration Simethicone 80 mg 05/24/19 17:00 05/26/19 09:22 Mylicon Chew PO 80 mg TID@0800,1200,1700 [facility] Administration Spironolactone 12.5 mg 05/25/19 09:00 05/26/19 09:23 Aldactone PO 12.5 mg DAILY [facility] Administration Thiamine HCl 100 mg 05/24/19 17:00 05/25/19 17:40 Vitamin B-1 PO 100 mg DAILY@1700 [facility] Administration Tramadol HCl 25 mg 05/24/19 14:41 05/25/19 10:52 Ultram PO 25 mg Q6HR PRN Administration Severe Pain Ursodiol 300 mg 05/24/19 21:00 05/26/19 09:22 Actigall PO 300 mg BID@0800,2100 [facility] Administration Objective - Vital Signs Vital signs: Vital Signs Temp 97.8 F 05/26/19 04:30 Pulse 76 05/26/19 07:00 Resp 12 05/26/19 07:00 BP 103/57 05/26/19 07:00 Pulse Ox 93 L 05/26/19 07:00 Intake & Output 05/25/19 05/26/19 05/26/19 18:59 06:59 18:59 Intake Total 804 1154 50 Output Total 970 2460 150 Balance -166 1306 -100 Weight 72.1 kg 74.4 kg Intake: IV 550 900 50 Cefepime 2 gm In Sodium 100 Chloride 0.9% 100 ml @ 200 mls/hr IVPB Q12HR [facility] Rx#:[id number] Magnesium Sulfate-D5w Pmx 200 1 gm In Dextrose/Water 1 100ml.bag @ 100 mls/hr IVPB Q1H [facility] Rx#: [id number] Sodium Chloride 0.9% 1, 550 600 50 000 ml @ 50 mls/hr IV . Q20H [facility] Rx#:[id number] Intake, IV Titration 254 254 Amount Norepinephrine 4 mg In 254 254 Sodium Chloride 0.9% 250 ml @ 0.05 MCG/KG/MIN 12. 961 mls/hr IV .[id number] [facility] Rx#:[id number] Output: Urine 970 2460 150 Other: Voiding Method Indwelling Catheter Indwelling Catheter - Exam -GENERAL: The patient is alert and oriented x1-2, not in any acute distress. Well developed, well nourished. HEENT: Pupils are round and equally reacting to light. EOMI. No scleral icterus. No conjunctival pallor. Normocephalic, atraumatic. No pharyngeal erythema. No thyromegaly. CARDIOVASCULAR: S1 and S2 present. No murmurs, rubs, or gallops. PULMONARY: Chest is clear to auscultation, no wheezing or crackles. ABDOMEN: Soft, nontender, nondistended, normoactive bowel sounds. No palpable organomegaly. -MUSCULOSKELETAL: No joint swelling or deformity. Stage II decubitus sacral ulcer -EXTREMITIES: No cyanosis, clubbing,. She has swelling in all extremities. Bi lateral foot wounds NEUROLOGICAL: Gross neurological examination did not reveal any focal deficits. SKIN: No rashes. - Labs CBC & Chem 7: 05/26/19 05:14 05/26/19 05:14 Labs: Abnormal Lab Results - Last 24 Hours (Table) 05/25/19 05/25/19 05/25/19 Range/Units 12:00 17:01 21:10 RBC (3.80-5.40) m/uL Hgb (11.4-16.0) gm/dL RDW (11.5-15.5) % Sodium (137-145) mmol/L Creatinine (0.52-1.04) mg/dL Glucose (74-99) mg/dL POC Glucose (mg/dL) 215 H 186 H 217 H (75-99) mg/dL Calcium (8.4-10.2) mg/dL Magnesium (1.6-2.3) mg/dL Total Protein (6.3-8.2) g/dL Albumin (3.5-5.0) g/dL 05/26/19 05/26/19 05/26/19 Range/Units 00:25 05:14 05:14 RBC 3.78 L (3.80-5.40) m/uL Hgb 11.2 L (11.4-16.0) gm/dL RDW 18.5 H (11.5-15.5) % Sodium 136 L (137-145) mmol/L Creatinine 0.51 L (0.52-1.04) mg/dL Glucose 64 L (74-99) mg/dL POC Glucose (mg/dL) (75-99) mg/dL Calcium 7.6 L (8.4-10.2) mg/dL Magnesium 1.5 L (1.6-2.3) mg/dL Total Protein 4.4 L (6.3-8.2) g/dL Albumin 1.9 L (3.5-5.0) g/dL Microbiology - Last 24 Hours (Table) 05/24/19 13:30 Gram Stain - Preliminary Pleural Fluid Body Fluid Culture - Preliminary 05/23/19 22:47 Blood Culture - Preliminary Blood No Growth after 48 hours Assessment and Plan Assessment: -Severe sepsis secondary to pressure ulcers on bilateral feet wound. Patient m ight have some elements of metabolic encephalopathy as well. Improving -Systemic inflammatory response with leukocytosis and hyperthermia, with tachycardia and tachypnea present on admission -Bilateral pleural effusion secondary to acute systolic on chronic congestive heart failure. Ejection fraction 30-35% -History of pulmonary embolism status post IVC filter secondary to GI bleed -Bilateral heel wounds that she used to follow-up as an outpatient -History of ESBL E. coli UTI. Plan: This is a pleasant 83 years old female who presents with infection and congestive heart failure. Continue with antibiotics as per ID team recommendation. She is a status post thoracocentesis, follow-up Results. Follow-up recommendation from pulmonary/critical care team. Continue with Lasix. Her start Eliquis. Call cardiology consult and follow their recommendation. Labs and medication were reviewed.. Continue same treatment. Continue with symptomatic treatment. Resume home medication. Monitor lytes and vitals. DVT and GI prophylaxis. Further recommendations of the clinical course of the patient DVT prophylaxis: Eliquis. GI prophylaxis: Protonix Prognosis is guarded
[2019-05-26] MEDS: traMADol 50 MG TAB PO PRN ×2 (10:02→17:09)
[2019-05-26] MEDS ORDERED: Potassium Replacement Protocol 1 EACH MISC MISCELLANE PRN (11:42)
[2019-05-26] MEDS ORDERED: POTASSIUM CHLORIDE ER 20 MEQ TAB.ER PO SCH (12:00)
[2019-05-26 12:06] LABS: Glucose,Whole Blood 49 mg/dL (75-99)
[2019-05-26] MEDS: APIXABAN 5 MG TAB PO SCH ×2 (12:18→20:58)
[2019-05-26 12:43] LABS: Glucose,Whole Blood 85 mg/dL (75-99)
--- NOTE | 2019-05-26 13:45 | P.PN ---
Subjective Progress Note Date: 05/26/19 Principal diagnosis: Recurrent episodes of hypoglycemia, metabolic encephalopathy, and bilateral pleural effusions. this is an 83-year-old female with history of multiple medical problems including chronic atrial fibrillation, type 2 diabetes,coronary artery disease, hypertension, LV dysfunction with ejection fraction of 35%, previous AICD placement, diabetic ulcers in both feet bilaterally, recurrent urinary tract infections, previous ESBL urinary tract infection, cervical cancer, severe peripheral vessel occlusive disease, patient is a long-term patient, brought in yesterday mostly with complaints of mental status change, patient was noted to be confused, weak, did not eat her dinner, and she was noted to have hypoglycemia with blood sugar about 43. Patient was given glucagon injection by the long-term staff, her sugar came up to 51, and IV could not be esta blished. EMS arrived to the scene, and she was given 1 amp of D50. Her blood sugar improved, patient became more alert, and arrangements were made to transfer the patient to the hospital ER. Upon arrival to the ER, patient was noted to be hypotensive, apparently CODE STATUS was discussed with the patient, and it was confirmed to be DO NOT RESUSCITATE. Initially the family declined having a central line placement, however as there was extreme difficulty in establishing a peripheral IV access, finally the daughter agreed to a central line which was placed by the ER physician in the left groin. Patient had a chest x-ray which showed significant pleural effusion bilaterally. And a CT of the chest read as no evidence of pulmonary embolism, however as I reviewed the CT of the chest, discussed the findings with Dr. 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 It is similar to previous CT done on her last admission. Patient has been on Eliquis for DVT and pulmonary embolism. And supposedly compliant with it. In addition the CT of the chest showed significant bilateral pleural effusions right more so than left, and this was confirmed by ultrasound today. Patient was admitted to the ICU but she did not require any norepinephrine. She was given few fluid boluses in the ER, and her blood pressure seems to be stable at this point. She was placed on vancomycin and Levaquin empirically. Reevaluated today on 05/25/2019, patient remains in the ICU, she is presently on room air, however she is requiring 0.04 mcg/kg/m of norepinephrine. Blood pressures seems to be marginal. Patient had a follow-up chest x-ray this morning showed small bilateral pleural effusions, she underwent right sided thoracentesis yesterday, and I was able to drain about 1100 mL of free flowing fluid, most likely transudative in nature, workup is pending on the fluid. Again the patient is feeling great but since she remains on norepinephrine, I will keep in the ICU and was she is off norepinephrine we could possibly transferred to a regular medical floor. In the meantime she is receiving antibiotics, she is back on her anticoagulation therapy for pulmonary embolism, and she is on diuretics. She is being followed by many consultants. Reevaluated today on 05/26/2019, patient remains in the ICU, and the only reason she is in the ICU is because she is still requiring norepinephrine at 0.04 mcg/kg/m. Blood pressure remains marginal. Her urine output is excellent, chest x-ray is showing bilateral pleural effusions again, but since she had her right sided thoracentesis, the patient has been doing extremely well. The pleural effusion I drained from the right side is transudative in nature and clearly cardiogenic/related to congestive heart failure. Labs were all reviewed including CBC and electrolytes and renal profile be seen to be relatively unremarkable. Daughter is at bedside, and she was updated on her condition and why she is still in the ICU. Once we could discontinue norepinephrine, patient could be transferred to a cardiac floor or a regular medical floor with remote telemetry. Objective - Vital Signs Vital signs: Vital Signs Temp 97.6 F 05/26/19 08:00 Pulse 80 05/26/19 11:00 Resp 17 05/26/19 11:00 BP 100/68 05/26/19 11:00 Pulse Ox 97 05/26/19 11:00 Intake & Output 05/25/19 05/26/19 05/26/19 18:59 06:59 18:59 Intake Total 804 1154 704 Output Total 970 2460 1010 Balance -166 -1306 -306 Weight 72.1 kg 74.4 kg Intake: IV 550 900 330 Cefepime 2 gm In Sodium 100 100 Chloride 0.9% 100 ml @ 200 mls/hr IVPB Q12HR COUNTS INCLUDE 234 BEDS AT THE [facility] Rx#:[id number] Magnesium Sulfate-D5w Pmx 200 1 gm In Dextrose/Water 1 100ml.bag @ 100 mls/hr IVPB Q1H [facility] Rx#: [id number] Sodium Chloride 0.9% 1, 550 600 230 000 ml @ 50 mls/hr IV . Q20H [facility] Rx#:[id number] Intake, IV Titration 254 254 254 Amount Norepinephrine 4 mg In 254 254 254 Sodium Chloride 0.9% 250 ml @ 0.05 MCG/KG/MIN 12. 961 mls/hr IV .[id number] [facility] Rx#:[id number] Oral 120 Output: Urine 970 2460 1010 Other: Voiding Method Indwelling Catheter Indwelling Catheter Indwelling Catheter - Exam Physical Exam: Revealed 83-year-old female in no distress. On room air in no distress Head: Atraumatic, normocephalic. HEENT:[Neck is supple.] [No neck masses.] [No thyromegaly.] [No JVD.] PERRLA, EOMI, no icterus. Chest: [Symmetrical chest expansion, diminished breath sounds and dullness at the bases bilaterally. Cardiac Exam: Irregular irregular rhythm. [Normal S1 and S2, no S3 gallop, 2/6 systolic murmur thought the precordium.] Abdomen: [obese,Soft, nontender, no megaly, no rebound, no guarding, normal bowel sounds.] Extremities: [No clubbing, 1+ bipedal edema, no cyanosis, multiple foot ulcers were noted,on both feet. wrapped with sterile dressing, been evaluated in the past by vascular surgery and infectious disease for her ulcers. Neurological Exam: Alert and oriented 3, no gross focal deficits. Psychiatric: Normal mood, affect and poor mental status. Musculoskeletal: No gross focal deficit. No limitation in range of motion skin: As noted above under extremities. Multiple deep ulcers noted on both feet bilaterally. - Labs CBC & Chem 7: 05/26/19 05:14 05/26/19 11:00 Labs: Abnormal Lab Results - Last 24 Hours (Table) 05/25/19 05/25/19 05/26/19 Range/Units 17:01 21:10 00:25 RBC (3.80-5.40) m/uL Hgb (11.4-16.0) gm/dL RDW (11.5-15.5) % Sodium (137-145) mmol/L Creatinine (0.52-1.04) mg/dL Glucose (74-99) mg/dL POC Glucose (mg/dL) 186 H 217 H (75-99) mg/dL Calcium (8.4-10.2) mg/dL Magnesium 1.5 L (1.6-2.3) mg/dL Total Protein (6.3-8.2) g/dL Albumin (3.5-5.0) g/dL 05/26/19 05/26/19 05/26/19 Range/Units 05:14 05:14 12:04 RBC 3.78 L (3.80-5.40) m/uL Hgb 11.2 L (11.4-16.0) gm/dL RDW 18.5 H (11.5-15.5) % Sodium 136 L (137-145) mmol/L Creatinine 0.51 L (0.52-1.04) mg/dL Glucose 64 L (74-99) mg/dL POC Glucose (mg/dL) 49 L (75-99) mg/dL Calcium 7.6 L (8.4-10.2) mg/dL Magnesium (1.6-2.3) mg/dL Total Protein 4.4 L (6.3-8.2) g/dL Albumin 1.9 L (3.5-5.0) g/dL Microbiology - Last 24 Hours (Table) 05/24/19 06:30 Urine Culture - Final Urine,Catheterized 05/24/19 13:30 Gram Stain - Preliminary Pleural Fluid Body Fluid Culture - Preliminary 05/23/19 22:47 Blood Culture - Preliminary Blood No Growth after 48 hours Assessment and Plan Assessment: impression: 1 recurrent episodes of hypoglycemia, most likely secondary to poor oral intake, and the patient is on medications for diabetes, given to her at the long-term. This has resolved. 2 acute metabolic encephalopathy secondary to hypoglycemia. Significantly improved since yesterday. 3 recurrent episodes of urinary tract infection secondary to ESBL E. coli and pseudomonas aeruginosa. 3 bilateral pleural effusions secondary to systolic congestive heart failure. Status post right sided thoracentesis on 05/24/2019, 1100 mL of fluid drained from the right pleural space. 4 history of pulmonary embolism documented on previous admission, and noted on CT of the chest on this admission. 5 chronic atrial fibrillation 6 LV dysfunction with ejection fraction of 35% and previous AICD placement 7 underlying coronary artery disease 8 diabetic foot ulcers 9 type 2 diabetes 10 history of chronic pancreatitis 11 severe peripheral vessel occlusive disease involving lower extremities. 12 medical debility. Recommendation: Continue antibiotics, diuretics, continue norepinephrine and titrate hopefully discontinue over the next 24 hours.. CODE STATUS remains the same, will continue to follow. Overall long-term prognosis is extremely poor and guarded. Considering the multiple comorbidities as noted above. CODE STATUS remains DO NOT RESUSCITATE. Time with Patient: Less than 30
[2019-05-26] MEDS ORDERED: ONDANSETRON 4 MG/2 ML VIAL IVP PRN (14:19)
[2019-05-26 14:30] LABS: Glucose,Whole Blood 175 mg/dL (75-99)
[2019-05-26] MEDS: THIAMINE 100 MG TAB PO SCH (16:30)
[2019-05-26] MEDS: SALT AND SODA MOUTHWASH 1,000 ML PO PRN (16:43)
[2019-05-26 16:56] LABS: Glucose,Whole Blood 179 mg/dL (75-99)
--- NOTE | 2019-05-26 19:01 | CONS ---
CONSULTATION REFERRING PHYSICIAN: Dr. Scott. CHIEF COMPLAINT: Cardiac arrhythmia. This is an 83-year-old lady with complex and multiple medical problems including cardiomyopathy, congestive heart failure, AICD, ventricular tachyarrhythmias, hypotension and multivessel coronary artery disease who is admitted to hospital apparently with hypotension and sepsis and I have been consulted by Dr. Scott, the primary care physician of record, for frequent ventricular ectopy. An echocardiogram on this admission revealed moderate to severe LV dysfunction with an ejection fraction of 30-35 percent. The patient already has an AICD and currently follows with a network cable installer in [facility]. The patient is on Lopressor 12.5 t.i.d. She is on midodrine because of hypotension. She is on Levophed on this admission and is also on amiodarone. I am going to hold the Aldactone that she is on at this time and once she is more stable, we will reintroduce it. Her potassium is somewhat low at 3.6 and I believe she is being supplemented and magnesium is 1.5 and it had been supplemented. PAST MEDICAL HISTORY: Significant for cardiomyopathy with congestive heart failure, ventricular tachycardia, AICD, coronary artery disease. MEDICATIONS AT HOME: Include Ultram, metformin, Klonopin, Aldactone, Zoloft, K-Dur Lopressor, magnesium, insulin, Neurontin, Lipitor, Eliquis and amiodarone. ALLERGIES: The patient is allergic to MORPHINE AND LEVAQUIN. FAMILY HISTORY: Is negative for premature coronary artery disease. SOCIAL HISTORY: Negative for current smoking. REVIEW OF SYSTEMS: HEENT is unremarkable. CARDIAC: As described above. RESPIRATORY: As described above. GI: Negative. GENITOURINARY: Negative. MUSCULOSKELETAL: Significant for arthritis. PSYCHOSOCIAL: Negative. AREA FIELD MANAGER: Negative. EXAM: Patient is comfortable at rest. Heart rate is 88 beats per minute. Blood pressure is 100/68, respiratory rate is 18. Chest exam reveals diminished air entry at the bases. Heart exam reveals first and second heart sounds and a systolic murmur at the left lower sternal border. Abdomen is soft. Exam of the extremities reveals 1+ edema. Peripheral pulses are felt. LABS: Labs show that the hemoglobin is 7.2, potassium is 3.6. Magnesium was 1.5, it is 2 right now and potassium is 3.7. ASSESSMENT: 1. Complex ventricular ectopy. 2. Ischemic cardiomyopathy status post AICD. 3. Multivessel coronary artery disease for medical therapy. 4. Possible sepsis. 5. Hypotension. PLAN: I am going to review the rhythm strips. Continue patient on current medications. Stop the Aldactone. Supplement potassium and magnesium and continue to watch on telemetry. Thank you, Dr. Scott, for allowing us to participate in the care of this pleasant lady. MMJOSIAHL / CARLOSN: [id number] /
[2019-05-26 20:56] LABS: Glucose,Whole Blood 250 mg/dL (75-99)
--- NOTE | 2019-05-26 23:28 | PN ---
PROGRESS NOTE DATE OF SERVICE: 05/26/2019. REASON FOR FOLLOWUP: Bilateral diabetic foot wounds and did have pleural effusions, question of pneumonia. INTERVAL HISTORY: The patient is currently afebrile. The patient is hemodynamically stable. Denies having any chest pain. Currently breathing comfortably on room air. No vomiting. No abdominal pain. No pain in bilateral foot wound area. PHYSICAL EXAMINATION: Blood pressure 110/76, pulse of 67, temperature of 97.5. She is 98% on 2 L nasal cannula. General description is an elderly female up in the bed in no distress. Respiratory system: Unlabored breathing with decreased breath sounds in the bases. No wheeze. Heart S1, S2. Regular rate and rhythm. Abdomen soft. No tenderness. LABS: Hemoglobin is 11.2 with white count 9.5. BUN is 17, creatinine 0.51. Electrolytes have been normal. Blood cultures so far negative. The fluid cultures currently pending. DIAGNOSTIC IMPRESSION AND PLAN: 1. Patient admitted to the hospital with low blood sugar, hypertension, elevated white count with concern for sepsis in this patient who did have a large pleural effusion status post thoracocentesis. Currently covered with cefepime and vanco while waiting for the culture to finalize. 2. Patient with bilateral diabetic foot wound with no evidence of cellulitis and [facility]. Keep the area off the pressure. MMODL / IJN: [id number] /
[2019-05-27 06:03] LABS: Glucose,Whole Blood 157 mg/dL (75-99)
[2019-05-27 06:03] LABS: Anisocytosis Slight; Basophils % (A) 0 %; Eosinophils # (A) 0.1 k/uL (0-0.7); Eosinophils % (A) 1 %; HCT 33.1 % (34.0-46.0); HGB 10.5 gm/dL (11.4-16.0); Hypochromasia Slight; Lymphocytes % (A) 12 %; MCH 30.2 pg (25.0-35.0); MCHC 31.6 g/dL (31.0-37.0); MCV 95.6 fL (80.0-100.0); Macrocytosis Slight; Mean Platelet Volume 7.9; Monocytes # (A) 0.5 k/uL (0-1.0); Monocytes % (A) 6 %; Neutrophils # (A) 6.8 k/uL (1.3-7.7); Neutrophils % (A) 80 %; Platelet Count 138 k/uL (150-450); RBC 3.46 m/uL (3.80-5.40); RDW 18.5 % (11.5-15.5); WBC 8.6 k/uL (3.8-10.6)
[2019-05-27] MEDS: GABAPENTIN 100 MG CAP PO SCH ×3 (06:14→21:01)
[2019-05-27 06:18] LABS: ALT 19 U/L (9-52); AST 16 U/L (14-36); African American GFR (CKD) >90 (>60 ml/min/1.73 sqM); Albumin 1.7 g/dL (3.5-5.0); Alkaline Phosphatase 86 U/L (38-126); Anion Gap 3 mmol/L; Blood Urea Nitrogen 15 mg/dL (7-17); Calcium 7.4 mg/dL (8.4-10.2); Carbon Dioxide 27 mmol/L (22-30); Chloride 104 mmol/L (98-107); Glucose 158 mg/dL (74-99); Potassium 3.5 mmol/L (3.5-5.1); Sodium 134 mmol/L (137-145); Total Bilirubin 0.5 mg/dL (0.2-1.3); Total Protein 4.1 g/dL (6.3-8.2)
[2019-05-27 07:26] LABS: Glucose,Whole Blood 143 mg/dL (75-99)
[2019-05-27] MEDS: INSULIN ASPART (NovoLOG) 100 UNIT/ML VIAL SQ SCH ×4 (07:37→20:56)
[2019-05-27] MEDS: POTASSIUM CHLORIDE ER 10 MEQ TAB.ER.PRT PO SCH (08:08)
[2019-05-27] MEDS: PANTOPRAZOLE 40 MG TABLET PO SCH (08:29)
[2019-05-27] MEDS: MIDODRINE 5 MG TAB PO SCH ×2 (08:29→17:11)
[2019-05-27] MEDS: traMADol 50 MG TAB PO PRN ×3 (08:30→21:08)
[2019-05-27] MEDS: MAGNESIUM OXIDE 400 MG TAB PO SCH ×2 (08:30→17:10)
[2019-05-27] MEDS: AMIODARONE 200 MG TAB PO SCH (08:31)
[2019-05-27] MEDS: PENTOXIFYLLINE 400 MG TABLET.ER PO SCH ×3 (08:31→17:10)
[2019-05-27] MEDS: OXYBUTYNIN XL 5 MG TAB.ER.24 PO SCH (08:31)
[2019-05-27] MEDS: SIMETHICONE 80 MG CHEWABLE PO SCH ×3 (08:31→17:10)
[2019-05-27] MEDS: POTASSIUM CHLORIDE ER 20 MEQ TAB.ER PO SCH ×2 (08:31→12:32)
[2019-05-27] MEDS: URSODIOL 300 MG CAP PO SCH ×2 (08:31→21:01)
[2019-05-27] MEDS: CEFEPIME 2 GM in SODIUM CHLORIDE 0.9% 100 ML IVPB SCH ×2 (08:32→20:56)
[2019-05-27] MEDS: ATORVASTATIN 40 MG TAB PO SCH (08:32)
[2019-05-27] MEDS: DICLOFENAC SODIUM GEL 100 GM TUBE TOPICAL SCH ×4 (08:32→21:00)
[2019-05-27] MEDS: APIXABAN 5 MG TAB PO SCH ×2 (08:32→21:01)
[2019-05-27] MEDS: FUROSEMIDE 10 MG/ML 4 ML VIAL IV SCH ×2 (08:33→20:53)
[2019-05-27] MEDS: SERTRALINE 25 MG TAB PO SCH (08:33)
[2019-05-27] MEDS: METOPROLOL TARTRATE 12.5 MG TAB PO SCH ×3 (08:33→21:01)
--- NOTE | 2019-05-27 11:41 | P.PN ---
Subjective Progress Note Date: 05/27/19 Principal diagnosis: Recurrent episodes of hypoglycemia, metabolic encephalopathy, and bilateral pleural effusions. this is an 83-year-old female with history of multiple medical problems including chronic atrial fibrillation, type 2 diabetes,coronary artery disease, hypertension, LV dysfunction with ejection fraction of 35%, previous AICD placement, diabetic ulcers in both feet bilaterally, recurrent urinary tract infections, previous ESBL urinary tract infection, cervical cancer, severe peripheral vessel occlusive disease, patient is a long term patient, brought in yesterday mostly with complaints of mental status change, patient was noted to be confused, weak, did not eat her dinner, and she was noted to have hypoglycemia with blood sugar about 43. Patient was given glucagon injection by the long term staff, her sugar came up to 51, and IV could not be esta blished. EMS arrived to the scene, and she was given 1 amp of D50. Her blood sugar improved, patient became more alert, and arrangements were made to transfer the patient to the hospital ER. Upon arrival to the ER, patient was noted to be hypotensive, apparently CODE STATUS was discussed with the patient, and it was confirmed to be DO NOT RESUSCITATE. Initially the family declined having a central line placement, however as there was extreme difficulty in establishing a peripheral IV access, finally the daughter agreed to a central line which was placed by the ER physician in the left groin. Patient had a chest x-ray which showed significant pleural effusion bilaterally. And a CT of the chest read as no evidence of pulmonary embolism, however as I reviewed the CT of the chest, discussed the findings with Dr. 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 It is similar to previous CT done on her last admission. Patient has been on Eliquis for DVT and pulmonary embolism. And supposedly compliant with it. In addition the CT of the chest showed significant bilateral pleural effusions right more so than left, and this was confirmed by ultrasound today. Patient was admitted to the ICU but she did not require any norepinephrine. She was given few fluid boluses in the ER, and her blood pressure seems to be stable at this point. She was placed on vancomycin and Levaquin empirically. Reevaluated today on 05/25/2019, patient remains in the ICU, she is presently on room air, however she is requiring 0.04 mcg/kg/m of norepinephrine. Blood pressures seems to be marginal. Patient had a follow-up chest x-ray this morning showed small bilateral pleural effusions, she underwent right sided thoracentesis yesterday, and I was able to drain about 1100 mL of free flowing fluid, most likely transudative in nature, workup is pending on the fluid. Again the patient is feeling great but since she remains on norepinephrine, I will keep in the ICU and was she is off norepinephrine we could possibly transferred to a regular medical floor. In the meantime she is receiving antibiotics, she is back on her anticoagulation therapy for pulmonary embolism, and she is on diuretics. She is being followed by many consultants. Reevaluated today on 05/26/2019, patient remains in the ICU, and the only reason she is in the ICU is because she is still requiring norepinephrine at 0.04 mcg/kg/m. Blood pressure remains marginal. Her urine output is excellent, chest x-ray is showing bilateral pleural effusions again, but since she had her right sided thoracentesis, the patient has been doing extremely well. The pleural effusion I drained from the right side is transudative in nature and clearly cardiogenic/related to congestive heart failure. Labs were all reviewed including CBC and electrolytes and renal profile be seen to be relatively unremarkable. Daughter is at bedside, and she was updated on her condition and why she is still in the ICU. Once we could discontinue norepinephrine, patient could be transferred to a cardiac floor or a regular medical floor with remote telemetry. Reevaluated today on 05/27/2019, patient remains in the ICU, however she has been off norepinephrine and her blood pressure seems to be marginal and stable. Patient remains on room air, denies any shortness of breath cough or wheezing, she had some headache earlier, and she was given Tylenol. Her last chest x-ray was done yesterday, plan to repeat her chest x-ray tomorrow for follow-up on her pleural effusions. Patient is on diuretics, she is also on anticoagulations therapy for her underlying thromboembolic disease/pulmonary embolism. Labs today showed relatively normal CBC hemoglobin is 10.5 and lites are normal renal profile is normal. Potassium is a bit low at 3.5 being corrected as per protocol. Objective - Vital Signs Vital signs: Vital Signs Temp 97.6 F 05/27/19 08:00 Pulse 59 L 05/27/19 11:00 Resp 12 05/27/19 11:00 BP 101/58 05/27/19 11:00 Pulse Ox 100 05/27/19 11:00 Intake & Output 05/26/19 05/27/19 05/27/19 18:59 06:59 18:59 Intake Total 1957.097 615.899 371.664 Output Total 2390 1355 585 Balance -432.903 -739.101 -213.336 Weight 75.3 kg Intake: IV 680 600 250 Cefepime 2 gm In Sodium 100 Chloride 0.9% 100 ml @ 200 mls/hr IVPB Q12HR [facility] Rx#:[id number] Sodium Chloride 0.9% 1, 580 600 250 000 ml @ 50 mls/hr IV . Q20H [facility] Rx#:[id number] Intake, IV Titration 317.097 15.899 1.664 Amount Norepinephrine 4 mg In 317.097 15.899 1.664 Sodium Chloride 0.9% 250 ml @ 0.05 MCG/KG/MIN 12. 961 mls/hr IV .[id number] [facility] Rx#:[id number] Oral 960 120 Output: Urine 2240 1355 585 Emesis 150 Other: Voiding Method Indwelling Catheter Indwelling Catheter # Bowel Movements 1 1 - Exam Physical Exam: Revealed 83-year-old female in no distress. Sitting in a bedside chair, in no distress. Head: Atraumatic, normocephalic. HEENT:[Neck is supple.] [No neck masses.] [No thyromegaly.] [No JVD.] PERRLA, EOMI, no icterus. Chest: [Symmetrical chest expansion, diminished breath sounds and dullness at the bases bilaterally. Cardiac Exam: Irregular irregular rhythm. [Normal S1 and S2, no S3 gallop, 2/6 systolic murmur thought the precordium.] Abdomen: [obese,Soft, nontender, no megaly, no rebound, no guarding, normal b owel sounds.] Extremities: [No clubbing, 1+ bipedal edema, no cyanosis, multiple foot ulcers were noted,on both feet. wrapped with sterile dressing, been evaluated in the past by vascular surgery and infectious disease for her ulcers. Neurological Exam: Alert and oriented 3, no gross focal deficits. Psychiatric: Normal mood, affect, mental status seems to be improving since admission. Musculoskeletal: No gross focal deficit. No limitation in range of motion skin: As noted above under extremities. Multiple deep ulcers noted on both feet bilaterally. - Labs CBC & Chem 7: 05/27/19 05:28 05/27/19 05:28 Labs: Abnormal Lab Results - Last 24 Hours (Table) 05/26/19 05/26/19 05/26/19 Range/Units 12:04 14:29 16:55 RBC (3.80-5.40) m/uL Hgb (11.4-16.0) gm/dL Hct (34.0-46.0) % RDW (11.5-15.5) % Plt Count (150-450) k/uL Sodium (137-145) mmol/L Creatinine (0.52-1.04) mg/dL Glucose (74-99) mg/dL POC Glucose (mg/dL) 49 L 175 H 179 H (75-99) mg/dL Calcium (8.4-10.2) mg/dL Total Protein (6.3-8.2) g/dL Albumin (3.5-5.0) g/dL 05/26/19 05/27/19 05/27/19 Range/Units 20:32 05:28 05:28 RBC 3.46 L (3.80-5.40) m/uL Hgb 10.5 L (11.4-16.0) gm/dL Hct 33.1 L (34.0-46.0) % RDW 18.5 H (11.5-15.5) % Plt Count 138 L (150-450) k/uL Sodium 134 L (137-145) mmol/L Creatinine 0.43 L (0.52-1.04) mg/dL Glucose 158 H (74-99) mg/dL POC Glucose (mg/dL) 250 H (75-99) mg/dL Calcium 7.4 L (8.4-10.2) mg/dL Total Protein 4.1 L (6.3-8.2) g/dL Albumin 1.7 L (3.5-5.0) g/dL 05/27/19 05/27/19 Range/Units 06:00 07:13 RBC (3.80-5.40) m/uL Hgb (11.4-16.0) gm/dL Hct (34.0-46.0) % RDW (11.5-15.5) % Plt Count (150-450) k/uL Sodium (137-145) mmol/L Creatinine (0.52-1.04) mg/dL Glucose (74-99) mg/dL POC Glucose (mg/dL) 157 H 143 H (75-99) mg/dL Calcium (8.4-10.2) mg/dL Total Protein (6.3-8.2) g/dL Albumin (3.5-5.0) g/dL Microbiology - Last 24 Hours (Table) 05/23/19 22:47 Blood Culture - Preliminary Blood No Growth after 72 hours 05/24/19 06:30 Urine Culture - Final Urine,Catheterized 05/24/19 13:30 Gram Stain - Preliminary Pleural Fluid Body Fluid Culture - Preliminary Assessment and Plan Assessment: impression: 1 recurrent episodes of hypoglycemia, most likely secondary to poor oral intake, and the patient is on medications for diabetes, given to her at the long term. This has resolved. 2 acute metabolic encephalopathy secondary to hypoglycemia. Improved. 3 recurrent episodes of urinary tract infection secondary to ESBL E. coli and pseudomonas aeruginosa. 3 bilateral pleural effusions secondary to systolic congestive heart failure. Status post right sided thoracentesis on 05/24/2019, 1100 mL of fluid drained from the right pleural space. 4 history of pulmonary embolism documented on previous admission, and noted on CT of the chest on this admission. 5 chronic atrial fibrillation 6 LV dysfunction with ejection fraction of 35% and previous AICD placement 7 underlying coronary artery disease 8 diabetic foot ulcers 9 type 2 diabetes 10 history of chronic pancreatitis 11 severe peripheral vessel occlusive disease involving lower extremities. 12 medical debility. Recommendation: Continue present supportive care measures. Continue antibiotics. Continue diuretics. Keep patient off norepinephrine for now. Consider transferring the patient out of the ICU to a monitor bed on selective. Overall prognosis remains extremely poor and guarded. CODE STATUS remains DO NOT RESUSCITATE. Time with Patient: Less than 30
--- NOTE | 2019-05-27 11:57 | P.PN ---
Subjective This is a pleasant 83 years old female with multiple medical problems presents to the emergency room with hyperthermia, hypo-glycemia and found to have bilateral pleural effusion secondary to acute congestive heart failure. Her ejection fraction 30-35%. Status post left side thoracocentesis on 05/24/2019. Also she has history of pulmonary embolism status post IVC filter secondary to GI bleed. She is status post AICD. She has chronic bilateral feet want that been followed by Dr. dash. Also she has history of ESBL E. coli. Patient herself is poor historian. However she is sitting in chair comfortable in mild distress due to her pain and ulcers including bilateral feet ulcer and pressure ulcer, stage II. 05/26/2019 Patient remains in the ICU. She is more awake and oriented today she's knows [facility] She was comfortable not complaining from pain. She is not interested respiratory distress. However she's hard hearing and slow to respond. She still on norepinephrine drip. V itas looks stable with blood pressure 103/57, she is saturating 93% of oxygen on room air. She is afebrile. Labs reviewed some looks stable within WBC of 9.5K and creatinine 0.5. Patient is making good urine output after Lasix 40 mg twice a day was started yesterday. She remains on cefepime and IV vancomycin. She was also on amiodarone and small dose of metoprolol. Discussed with staff and ada willis of records from nursing homes. Patient looks like she was taken Eliquis at [facility] despite history of GI bleed. The go to start her Eliquis and call cardiology consult. Patient has DO NOT RESUSCITATE order 05/27/2019 Patient is still awake and oriented but lethargic. Her Levophed has stopped all her blood pressure still on the low normal side. No going to keep monitoring the ICU for a few hours and her blood pressure is stable patient can be transferred to the general medical floor upon critical care team recommendation. Keep monitoring patient and her MAP. Patient systolic on antibiotics of cefepime and Vanco for her severe infection from her wounds. Continue with wound dressing. She is currently on Lasix 40 mg twice daily. Cardiology is going to evaluate the patient. Also patient is on Eliquis which was started as her home medication. Heart rate is slightly bradycardic as 59, blood pressure currently 101/58, patient is afebrile. WBC remains stable and within normal limits at 8.6K, hemoglobin 10.5, platelets 138 on the low side. Creatinine is 0.4, sugars controlled less than 200. Review of systems CONSTITUTIONAL: No fever, no malaise, no fatigue. HEENT: No recent visual problems or hearing problems. Denied any sore throat. CARDIOVASCULAR: No orthopnea, PND, no palpitations, no syncope. PULMONARY: No shortness of breath, no cough, no hemoptysis. GASTROINTESTINAL: No diarrhea, no nausea, no vomiting, no abdominal pain. Normoactive bowel sounds. NEUROLOGICAL: No headaches, no weakness, no numbness. HEMATOLOGICAL: Denies any bleeding or petechiae. GENITOURINARY: Denies any burning micturition, frequency, or urgency. MUSCULOSKELETAL/RHEUMATOLOGICAL: Denies any joint pain, swelling, or any muscle pain. ENDOCRINE: Denies any polyuria or polydipsia. Active Medications Generic Name Dose Route Start Last Admin Trade Name Conradoq PRN Reason Stop Dose Admin Acetaminophen 325 mg 05/24/19 02:20 Tylenol Tab PO Q6HR PRN Fever and/ or Pain Amiodarone HCl 200 mg 05/24/19 14:45 05/27/19 08:31 Cordarone PO 200 mg DAILY KEVEN Administration Apixaban 5 mg 05/26/19 11:45 05/27/19 08:32 Eliquis PO 5 mg BID KEVEN Administration Atorvastatin Calcium 40 mg 05/25/19 09:00 05/27/19 08:32 Lipitor PO 40 mg DAILY KEVEN Administration Bisacodyl 10 mg 05/24/19 14:41 05/26/19 16:31 Dulcolax RECTAL 10 mg DAILY PRN Administration Constipation Clonazepam 0.5 mg 05/24/19 21:00 05/26/19 23:34 Klonopin PO 0.5 mg BID PRN Administration anxiety Diclofenac Sodium 2 gm 05/24/19 18:00 05/27/19 08:32 Voltaren Gel TOPICAL 2 gm QID KEVEN Administration Furosemide 40 mg 05/25/19 09:00 05/27/19 08:33 Lasix IV 40 mg Q12HR KEVEN Administration Gabapentin 100 mg 05/24/19 21:00 05/27/19 06:14 Neurontin PO 100 mg TID@0600,1400,2100 KEVEN Administration Norepinephrine Bitartrate 4 mg 254 mls @ 12.961 mls/hr 05/24/19 02:15 05/27/19 08:30 / Sodium Chloride IV 0 mcg/kg/min .[id number] KEVEN 0 mls/hr Titration Protocol 0.05 MCG/KG/MIN Vancomycin HCl 1,250 mg/ 250 mls @ 125 mls/hr 05/24/19 23:00 05/26/19 23:20 Sodium Chloride IVPB 125 mls/hr Q16H KEVEN Administration Cefepime HCl 2 gm/ Sodium 100 mls @ 200 mls/hr 05/25/19 09:00 05/27/19 08:32 Chloride IVPB 200 mls/hr Q12HR KEVEN Administration Sodium Chloride 1,000 mls @ 50 mls/hr 05/25/19 05:15 05/26/19 21:21 Saline 0.9% IV 50 mls/hr .Q20H KEVEN Administration Insulin Aspart 0 unit 05/25/19 05:03 05/27/19 07:37 Novolog SQ 1 unit ACHS KEVEN Administration Protocol Magnesium Oxide 400 mg 05/24/19 17:00 05/27/19 08:30 Mag-Ox PO 400 mg BID@0800,1700 KEVEN Administration Methyl Salicylate 1 applic 05/24/19 14:41 Thera-Gesic Cream TOPICAL DAILY PRN LEFT SHOULDER PAIN Metoprolol Tartrate 12.5 mg 05/24/19 16:00 05/27/19 08:33 Lopressor PO 12.5 mg TID KEVEN Administration Midodrine 2.5 mg 05/24/19 17:30 05/27/19 08:29 Proamatine PO 2.5 mg AC-BID KEVEN Administration Miscellaneous Information 1 each 05/26/19 11:42 Potassium Per Protocol MISCELLANE DAILY PRN Per Protocol Protocol Naloxone HCl 0.2 mg 05/24/19 02:15 Narcan IV Q2M PRN Opioid Reversal Ondansetron HCl 4 mg 05/26/19 14:19 05/26/19 14:30 Zofran IVP 4 mg Q6HR PRN Administration Nausea And Vomiting Oxybutynin Chloride 10 mg 05/25/19 08:00 05/27/19 08:31 Ditropan Xl PO 10 mg DAILY@0800 KEVEN Administration Pantoprazole Sodium 40 mg 05/24/19 14:45 05/27/19 08:29 Protonix PO 40 mg AC-[id number] KEVEN Administration Pentoxifylline 400 mg 05/24/19 17:00 05/27/19 08:31 Trental PO 400 mg TID@0800,1200,1700 KEVEN Administration Potassium Chloride 10 meq 05/25/19 09:00 05/27/19 08:08 K-Dur 10 PO Not Given DAILY KEVEN Sertraline HCl 25 mg 05/24/19 14:45 05/27/19 08:33 Zoloft PO 25 mg DAILY KEVEN Administration Simethicone 80 mg 05/24/19 17:00 05/27/19 08:31 Mylicon Chew PO 80 mg TID@0800,1200,1700 KEVEN Administration Sodium Bicarbonate 5 ml 05/26/19 11:00 05/26/19 16:43 PO 5 ml 5XD PRN Administration Mouth Sore Pain Thiamine HCl 100 mg 05/24/19 17:00 05/26/19 16:30 Vitamin B-1 PO 100 mg DAILY@1700 KEVEN Administration Tramadol HCl 25 mg 05/24/19 14:41 05/27/19 08:30 Ultram PO 25 mg Q6HR PRN Administration Severe Pain Ursodiol 300 mg 05/24/19 21:00 05/27/19 08:31 Actigall PO 300 mg BID@0800,2100 KEVEN Administration Objective - Vital Signs Vital signs: Vital Signs Temp 97.6 F 05/27/19 08:00 Pulse 59 L 05/27/19 11:00 Resp 12 05/27/19 11:00 BP 101/58 05/27/19 11:00 Pulse Ox 100 05/27/19 11:00 Intake & Output 05/26/19 05/27/19 05/27/19 18:59 06:59 18:59 Intake Total 8686.097 615.899 371.664 Output Total 7948 1145 585 Balance -432.903 -739.101 -213.336 Weight 75.3 kg Intake: IV 680 600 250 Cefepime 2 gm In Sodium 100 Chloride 0.9% 100 ml @ 200 mls/hr IVPB Q12HR [facility] Rx#:[id number] Sodium Chloride 0.9% 1, 580 600 250 000 ml @ 50 mls/hr IV . Q20H KEVEN Rx#:[id number] Intake, IV Titration 317.097 15.899 1.664 Amount Norepinephrine 4 mg In 317.097 15.899 1.664 Sodium Chloride 0.9% 250 ml @ 0.05 MCG/KG/MIN 12. 961 mls/hr IV .[id number] KEVEN Rx#:[id number] Oral 960 120 Output: Urine 2240 1355 585 Emesis 150 Other: Voiding Method Indwelling Catheter Indwelling Catheter Indwelling Catheter # Bowel Movements 1 1 - Exam -GENERAL: The patient is alert and oriented x1-2, not in any acute distress. Well developed, well nourished. HEENT: Pupils are round and equally reacting to light. EOMI. No scleral icterus. No conjunctival pallor. Normocephalic, atraumatic. No pharyngeal erythema. No thyromegaly. CARDIOVASCULAR: S1 and S2 present. No murmurs, rubs, or gallops. PULMONARY: Chest is clear to auscultation, no wheezing or crackles. ABDOMEN: Soft, nontender, nondistended, normoactive bowel sounds. No palpable organomegaly. -MUSCULOSKELETAL: No joint swelling or deformity. Stage II decubitus sacral ulcer -EXTREMITIES: No cyanosis, clubbing,. She has swelling in all extremities. Bilateral foot wounds NEUROLOGICAL: Gross neurological examination did not reveal any focal deficits. SKIN: No rashes. - Labs CBC & Chem 7: 05/27/19 05:28 05/27/19 05:28 Labs: Abnormal Lab Results - Last 24 Hours (Table) 05/26/19 05/26/19 05/26/19 Range/Units 12:04 14:29 16:55 RBC (3.80-5.40) m/uL Hgb (11.4-16.0) gm/dL Hct (34.0-46.0) % RDW (11.5-15.5) % Plt Count (150-450) k/uL Sodium (137-145) mmol/L Creatinine (0.52-1.04) mg/dL Glucose (74-99) mg/dL POC Glucose (mg/dL) 49 L 175 H 179 H (75-99) mg/dL Calcium (8.4-10.2) mg/dL Total Protein (6.3-8.2) g/dL Albumin (3.5-5.0) g/dL 05/26/19 05/27/19 05/27/19 Range/Units 20:32 05:28 05:28 RBC 3.46 L (3.80-5.40) m/uL Hgb 10.5 L (11.4-16.0) gm/dL Hct 33.1 L (34.0-46.0) % RDW 18.5 H (11.5-15.5) % Plt Count 138 L (150-450) k/uL Sodium 134 L (137-145) mmol/L Creatinine 0.43 L (0.52-1.04) mg/dL Glucose 158 H (74-99) mg/dL POC Glucose (mg/dL) 250 H (75-99) mg/dL Calcium 7.4 L (8.4-10.2) mg/dL Total Protein 4.1 L (6.3-8.2) g/dL Albumin 1.7 L (3.5-5.0) g/dL 05/27/19 05/27/19 Range/Units 06:00 07:13 RBC (3.80-5.40) m/uL Hgb (11.4-16.0) gm/dL Hct (34.0-46.0) % RDW (11.5-15.5) % Plt Count (150-450) k/uL Sodium (137-145) mmol/L Creatinine (0.52-1.04) mg/dL Glucose (74-99) mg/dL POC Glucose (mg/dL) 157 H 143 H (75-99) mg/dL Calcium (8.4-10.2) mg/dL Total Protein (6.3-8.2) g/dL Albumin (3.5-5.0) g/dL Microbiology - Last 24 Hours (Table) 05/23/19 22:47 Blood Culture - Preliminary Blood No Growth after 72 hours 05/24/19 06:30 Urine Culture - Final Urine,Catheterized 05/24/19 13:30 Gram Stain - Preliminary Pleural Fluid Body Fluid Culture - Preliminary Assessment and Plan Assessment: -Severe sepsis secondary to pressure ulcers on bilateral feet wound. Patient might have some elements of metabolic encephalopathy as well. Improving -Systemic inflammatory response with leukocytosis and hyperthermia, with tachycardia and tachypnea present on admission -Bilateral pleural effusion secondary to acute systolic on chronic congestive heart failure. Ejection fraction 30-35% -History of pulmonary embolism status post IVC filter secondary to GI bleed -Bilateral heel wounds that she used to follow-up as an outpatient -History of ESBL E. coli UTI. Plan: This is a pleasant 83 years old female who presents with infection and congestive heart failure. Continue with antibiotics as per ID team recommendation. She is a status post thoracocentesis, follow-up Results. Follow-up recommendation from pulmonary/critical care team. Continue with Lasix. Her start Eliquis. Call cardiology consult and follow their recommendation. Labs and medication were reviewed.. Continue same treatment. Continue with symptomatic treatment. Resume home medication. Monitor lytes and vitals. DVT and GI prophylaxis. Further recommendations of the clinical course of the patient DVT prophylaxis: Eliquis. GI prophylaxis: Protonix Prognosis is guarded
[2019-05-27 12:27] LABS: Glucose,Whole Blood 116 mg/dL (75-99)
[2019-05-27] MEDS: ACETAMINOPHEN TAB 325 MG TAB PO PRN (12:33)
[2019-05-27] MEDS: VANCOMYCIN 1,250 MG in SODIUM CHLORIDE 0.9% 250 ML IVPB SCH (14:05)
[2019-05-27] MEDS ORDERED: POTASSIUM BICARBONATE/CIT AC 20 MEQ TABLET.EFF NG-TUBE SCH (16:00)
[2019-05-27] MEDS: THIAMINE 100 MG TAB PO SCH (17:10)
[2019-05-27] MEDS: SODIUM CHLORIDE 0.9% 1,000 ML IV SCH (17:11)
[2019-05-27] MEDS: SALT AND SODA MOUTHWASH 1,000 ML PO PRN (17:12)
[2019-05-27 17:27] LABS: Glucose,Whole Blood 153 mg/dL (75-99)
--- NOTE | 2019-05-27 19:28 | PN ---
PROGRESS NOTE This is an 83-year-old lady that is admitted to hospital with possible sepsis that I was asked to evaluate by the hospitalist who admitted the patient to the hospital for cardiac arrhythmia. The patient was having frequent and complex ventricular ectopy. This morning, patient is better. Heart rate is better controlled. The ventricular ectopy had improved. The patient is currently on amiodarone 200 mg daily, apixaban 5 mg 2 times a day, Lipitor 40 daily, Lasix, Lopressor 12.5 t.i.d. On exam, comfortable at rest. Heart rate is 60 beats per minute. Blood pressure is 101/58, respiratory rate is 12. Chest exam reveals diminished air entry without any crackles. Heart exam reveals first and second heart sounds are heard and there is a grade 3/6 systolic murmur at the apex. No gallop. Exam of extremities reveals mild edema. Peripheral pulses are felt. LABS: Show a hemoglobin of 10.5, platelet count is 138, creatinine is 0.43. ASSESSMENT: 1. Chronic systolic heart failure. 2. Ischemic cardiomyopathy. 3. Ventricular tachycardia, status post AICD. 4. Coronary artery disease. PLAN: Patient will continue current medication. MMODL / IJN: [id number] /
[2019-05-27 21:10] LABS: Glucose,Whole Blood 175 mg/dL (75-99)
--- NOTE | 2019-05-27 23:16 | PN ---
PROGRESS NOTE DATE OF SERVICE: 05/27/2019. REASON FOR FOLLOWUP: 1. Bilateral diabetic foot wound. 2. Sacral pressure ulcer. 3. Question of pneumonia and pleural effusion. INTERVAL HISTORY: The patient is currently afebrile. The patient has been hemodynamically stable requiring a very low-dose pressor support. He is breathing comfortably on nasal cannula oxygen. Appetite has been low. No choking on the food. No nausea, no vomiting, diarrhea reported by the nursing staff. On examination, blood pressure 101/63 with a pulse of 70, temperature 97.8. She is 98% on 2 L nasal cannula. General description is an elderly female, lying in bed in no distress. Respiratory system: Unlabored breathing with decreased breath sounds at the bases. No wheeze. Heart S1, S2. Regular rate and rhythm. Abdomen soft, no tenderness. Bilateral feet wounds are currently dressed up. No obvious drainage on the dressing. LABS: Hemoglobin is 10.5, white count 8.6, BUN is 15, creatinine 0.43. Body fluid cultures currently pending. Blood culture negative. Urine is negative. DIAGNOSTIC IMPRESSION AND PLAN: 1. Patient admitted to the hospital with hypertension, low blood sugar and elevated white count. The patient did have a large pleural effusion status post thoracocentesis. Cultures are currently pending. The patient is covered with vancomycin that will continue while waiting for the culture to finalize. 2. Patient with bilateral left diabetic foot wound with slough tissue. Local wound care with Medihoney to keep the area off the pressure. MMODL / IJN: [id number] /
[2019-05-28 05:00] LABS: Anisocytosis Slight; Basophils % (A) 0 %; Eosinophils # (A) 0.2 k/uL (0-0.7); Eosinophils % (A) 3 %; HCT 30.2 % (34.0-46.0); HGB 9.7 gm/dL (11.4-16.0); Lymphocytes # (A) 1.2 k/uL (1.0-4.8); Lymphocytes % (A) 14 %; MCH 30.1 pg (25.0-35.0); MCHC 32.1 g/dL (31.0-37.0); MCV 93.8 fL (80.0-100.0); Mean Platelet Volume 8.1; Monocytes # (A) 0.4 k/uL (0-1.0); Monocytes % (A) 5 %; Neutrophils # (A) 6.4 k/uL (1.3-7.7); Neutrophils % (A) 77 %; Platelet Count 148 k/uL (150-450); RBC 3.22 m/uL (3.80-5.40); RDW 18.3 % (11.5-15.5); WBC 8.4 k/uL (3.8-10.6)
[2019-05-28 05:22] LABS: ALT 19 U/L (9-52); AST 14 U/L (14-36); African American GFR (CKD) >90 (>60 ml/min/1.73 sqM); Albumin 1.6 g/dL (3.5-5.0); Alkaline Phosphatase 87 U/L (38-126); Anion Gap 1 mmol/L; Blood Urea Nitrogen 15 mg/dL (7-17); Calcium 7.4 mg/dL (8.4-10.2); Carbon Dioxide 30 mmol/L (22-30); Chloride 103 mmol/L (98-107); Glucose 106 mg/dL (74-99); Potassium 4.1 mmol/L (3.5-5.1); Sodium 134 mmol/L (137-145); Total Bilirubin 0.4 mg/dL (0.2-1.3); Total Protein 3.9 g/dL (6.3-8.2)
[2019-05-28] MEDS: GABAPENTIN 100 MG CAP PO SCH ×3 (06:06→20:53)
[2019-05-28] MEDS: VANCOMYCIN 1,250 MG in SODIUM CHLORIDE 0.9% 250 ML IVPB SCH (06:07)
[2019-05-28 06:33] LABS: Glucose,Whole Blood 101 mg/dL (75-99)
[2019-05-28] MEDS: INSULIN ASPART (NovoLOG) 100 UNIT/ML VIAL SQ SCH ×4 (06:34→20:51)
--- NOTE | 2019-05-28 07:30 | XR ---
EXAMINATION TYPE: XR chest 1V portable DATE OF EXAM: 05/28/2019 COMPARISON: Prior chest x-ray dated 05/26/2019 HISTORY: Pleural effusion TECHNIQUE: Single frontal view of the chest is obtained. FINDINGS: There is similar appearance to the chest, pulmonary artery appears prominent, the heart is enlarged. Bibasilar increased density persists. There is no evident pneumothorax. Intracardiac defib rillator and generator are stable. Old traumatic changes to the right ribs are again seen. There are overlying cardiac leads. Hemidiaphragms are obscured by basilar increased density. Perihilar vascular indistinctness is present. The osseous structures are stable, chronic right proximal humeral fractur e noted with displacement. IMPRESSION: Correlate for congestive heart failure. There may be basilar effusions, atelectasis, zion ma, correlate to exclude pneumonia.
[2019-05-28] MEDS: PANTOPRAZOLE 40 MG TABLET PO SCH (08:50)
[2019-05-28] MEDS: MIDODRINE 5 MG TAB PO SCH ×3 (08:50→18:26)
[2019-05-28] MEDS: OXYBUTYNIN XL 5 MG TAB.ER.24 PO SCH (08:50)
[2019-05-28] MEDS: PENTOXIFYLLINE 400 MG TABLET.ER PO SCH ×3 (08:50→18:26)
[2019-05-28] MEDS: MAGNESIUM OXIDE 400 MG TAB PO SCH ×2 (08:50→18:25)
[2019-05-28] MEDS: CEFEPIME 2 GM in SODIUM CHLORIDE 0.9% 100 ML IVPB SCH ×2 (08:51→20:52)
[2019-05-28] MEDS: URSODIOL 300 MG CAP PO SCH ×2 (08:51→20:53)
[2019-05-28] MEDS: SIMETHICONE 80 MG CHEWABLE PO SCH ×3 (08:51→18:26)
[2019-05-28] MEDS: APIXABAN 5 MG TAB PO SCH ×2 (08:51→20:52)
[2019-05-28] MEDS: DICLOFENAC SODIUM GEL 100 GM TUBE TOPICAL SCH ×4 (08:51→20:52)
[2019-05-28] MEDS: AMIODARONE 200 MG TAB PO SCH (08:51)
[2019-05-28] MEDS: ATORVASTATIN 40 MG TAB PO SCH (08:51)
[2019-05-28] MEDS: SERTRALINE 25 MG TAB PO SCH (08:52)
[2019-05-28] MEDS: POTASSIUM CHLORIDE ER 10 MEQ TAB.ER.PRT PO SCH (08:52)
[2019-05-28] MEDS: FUROSEMIDE 10 MG/ML 4 ML VIAL IV SCH (08:52)
[2019-05-28] MEDS: METOPROLOL TARTRATE 12.5 MG TAB PO SCH ×3 (08:52→20:53)
--- NOTE | 2019-05-28 09:13 | P.PN ---
Subjective Progress Note Date: 05/28/19 This is a 83-year-old female with history of ischemic cardiomyopathy status post ACD placement and also coronary artery disease who was admitted to the hospital with hypoglycemia and cardiac arrhythmias. Patient was found to have frequent and complex ventricular ectopy. Patient is currently seemed to be stable. No significant arrhythmias are noted. Patient is currently on Lasix 40 mg IV twice daily. Her BUN/creatinine are stable. She appears to be comfortable without any orthopnea. We'll going to switch to by mouth Lasix 80 mg by mouth twice a day. Patient could be transferred to telemetry unit. Objective - Vital Signs Vital signs: Vital Signs Temp 98.3 F 05/28/19 08:00 Pulse 64 05/28/19 08:00 Resp 12 05/28/19 08:00 BP 101/63 05/28/19 08:00 Pulse Ox 99 05/28/19 08:00 Intake & Output 05/27/19 05/28/19 05/28/19 18:59 06:59 18:59 Intake Total 1511.664 850 100 Output Total 865 1295 70 Balance 646.664 -445 30 Weight 76.8 kg Intake: IV 790 850 100 Sodium Chloride 0.9% 1, 540 600 100 000 ml @ 50 mls/hr IV . Q20H [facility] Rx#:[id number] Vancomycin 1,250 mg In 250 250 Sodium Chloride 0.9% 250 ml @ 125 mls/hr IVPB ONCE ONE Rx#:[id number] Intake, IV Titration 1.664 Amount Norepinephrine 4 mg In 1.664 Sodium Chloride 0.9% 250 ml @ 0.05 MCG/KG/MIN 12. 961 mls/hr IV .[id number] [facility] Rx#:[id number] Oral 720 Output: Urine 865 1295 70 Other: Voiding Method Indwelling Catheter Indwelling Catheter - Exam GENERAL EXAM: Patient is alert and oriented and doesn't appear to be in any acute distress HEENT: Normocephalic. Normal reaction of pupils, equal size, normal range of extraocular motion. No erythema or exudates in the throat. NECK: No masses, no nuchal rigidity. CHEST: No chest wall deformity. LUNGS: Equal air entry with no crackles or wheeze. HEART: S1 and S2 normal with no audible mumurs or gallops. Regular rhythm, femorals equal on both sides.. ABDOMEN: No hepatosplenomegaly, normal bowel sounds, no guarding or rigidity. SKIN: No rashes CENTRAL NERVOUS SYSTEM: No focal deficits. EXTREMITIES: Chronic edema. Both legs are wrapped - Labs CBC & Chem 7: 05/28/19 04:50 05/28/19 04:50 Labs: Abnormal Lab Results - Last 24 Hours (Table) 05/27/19 05/27/19 05/27/19 Range/Units 12:05 17:02 20:45 RBC (3.80-5.40) m/uL Hgb (11.4-16.0) gm/dL Hct (34.0-46.0) % RDW (11.5-15.5) % Plt Count (150-450) k/uL Sodium (137-145) mmol/L Glucose (74-99) mg/dL POC Glucose (mg/dL) 116 H 153 H 175 H (75-99) mg/dL Calcium (8.4-10.2) mg/dL Total Protein (6.3-8.2) g/dL Albumin (3.5-5.0) g/dL 05/28/19 05/28/19 05/28/19 Range/Units 04:50 04:50 06:30 RBC 3.22 L (3.80-5.40) m/uL Hgb 9.7 L (11.4-16.0) gm/dL Hct 30.2 L (34.0-46.0) % RDW 18.3 H (11.5-15.5) % Plt Count 148 L (150-450) k/uL Sodium 134 L (137-145) mmol/L Glucose 106 H (74-99) mg/dL POC Glucose (mg/dL) 101 H (75-99) mg/dL Calcium 7.4 L (8.4-10.2) mg/dL Total Protein 3.9 L (6.3-8.2) g/dL Albumin 1.6 L (3.5-5.0) g/dL Microbiology - Last 24 Hours (Table) 05/23/19 22:47 Blood Culture - Preliminary Blood No Growth after 96 hours 05/24/19 13:30 Gram Stain - Preliminary Pleural Fluid Body Fluid Culture - Preliminary Assessment and Plan (1) Atrial fibrillation Current Visit: Yes Status: Acute Code(s): I48.91 - UNSPECIFIED ATRIAL FIBRILLATION SNOMED Code(s): 46489190 (2) Congestive heart failure Current Visit: Yes Status: Acute Code(s): I50.9 - HEART FAILURE, UNSPECIFIED SNOMED Code(s): 23454114 (3) Diabetic foot ulcer Current Visit: Yes Status: Acute Code(s): E11.621 - TYPE 2 DIABETES MELLITUS WITH FOOT ULCER; L97.509 - NON-PRESSURE CHRONIC ULCER OTH PRT UNSP FOOT W UNSP SEVERITY SNOMED Code(s): 094550323 (4) Hypoglycemia Current Visit: Yes Status: Acute Code(s): E16.2 - HYPOGLYCEMIA, UNSPECIFIED SNOMED Code(s): 461130689 Plan: Patient is clinically stable. Has chronic is currently myopathy and congestive heart failure. No acute arrhythmias. Continue current medical therapy. Switch to by mouth Lasix. Transfer to telemetry unit
[2019-05-28] MEDS: traMADol 50 MG TAB PO PRN ×2 (10:41→18:43)
--- NOTE | 2019-05-28 11:08 | P.PN ---
Subjective Progress Note Date: 05/28/19 Principal diagnosis: Recurrent episodes of hypoglycemia, metabolic encephalopathy, and bilateral pleural effusions this is an 83-year-old female with history of multiple medical problems including chronic atrial fibrillation, type 2 diabetes,coronary artery disease, hypertension, LV dysfunction with ejection fraction of 35%, previous AICD placement, diabetic ulcers in both feet bilaterally, recurrent urinary tract infections, previous ESBL urinary tract infection, cervical cancer, severe peripheral vessel occlusive disease, patient is a [facility] patient, brought in yesterday mostly with complaints of mental status change, patient was noted to be confused, weak, did not eat her dinner, and she was noted to have hypoglycemia with blood sugar about 43. Patient was given glucagon injection by the [facility] staff, her sugar came up to 51, and IV could not be estab lished. EMS arrived to the scene, and she was given 1 amp of D50. Her blood sugar improved, patient became more alert, and arrangements were made to transfer the patient to the hospital ER. Upon arrival to the ER, patient was noted to be hypotensive, apparently CODE STATUS was discussed with the patient, and it was confirmed to be DO NOT RESUSCITATE. Initially the family declined having a central line placement, however as there was extreme difficulty in establishing a peripheral IV access, finally the daughter agreed to a central line which was placed by the ER physician in the left groin. Patient had a chest x-ray which showed significant pleural effusion bilaterally. And a CT of the chest read as no evidence of pulmonary embolism, however as I reviewed the CT of the chest, discussed the findings with Dr. 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 It is similar to previous CT done on her last admission. Patient has been on Eliquis for DVT and pulmonary embolism. And supposedly compliant with it. In addition the CT of the chest showed significant bilateral pleural effusions right more so than left, and this was confirmed by ultrasound today. Patient was admitted to the ICU but she did not require any norepinephrine. She was given few fluid boluses in the ER, and her blood pressure seems to be stable at this point. She was placed on vancomycin and Levaquin empirically. Reevaluated today on 05/25/2019, patient remains in the ICU, she is presently on room air, however she is requiring 0.04 mcg/kg/m of norepinephrine. Blood pressures seems to be marginal. Patient had a follow-up chest x-ray this morning showed small bilateral pleural effusions, she underwent right sided thoracentesis yesterday, and I was able to drain about 1100 mL of free flowing fluid, most likely transudative in nature, workup is pending on the fluid. Again the patient is feeling great but since she remains on norepinephrine, I will keep in the ICU and was she is off norepinephrine we could possibly transferred to a regular medical floor. In the meantime she is receiving antibiotics, she is back on her anticoagulation therapy for pulmonary embolism, and she is on diuretics. She is being followed by many consultants. Reevaluated today on 05/26/2019, patient remains in the ICU, and the only reason she is in the ICU is because she is still requiring norepinephrine at 0.04 mcg/kg/m. Blood pressure remains marginal. Her urine output is excellent, chest x-ray is showing bilateral pleural effusions again, but since she had her right sided thoracentesis, the patient has been doing extremely well. The pleural effusion I drained from the right side is transudative in nature and clearly cardiogenic/related to congestive heart failure. Labs were all reviewed including CBC and electrolytes and renal profile be seen to be relatively unremarkable. Daughter is at bedside, and she was updated on her condition and why she is still in the ICU. Once we could discontinue norepinephrine, patient could be transferred to a cardiac floor or a regular medical floor with remote telemetry. Reevaluated today on 05/27/2019, patient remains in the ICU, however she has been off norepinephrine and her blood pressure seems to be marginal and stable. Patient remains on room air, denies any shortness of breath cough or wheezing, she had some headache earlier, and she was given Tylenol. Her last chest x-ray was done yesterday, plan to repeat her chest x-ray tomorrow for follow-up on her pleural effusions. Patient is on diuretics, she is also on anticoagulations therapy for her underlying thromboembolic disease/pulmonary embolism. Labs today showed relatively normal CBC hemoglobin is 10.5 and lites are normal renal profile is normal. Potassium is a bit low at 3.5 being corrected as per protocol. On 05/28/2019 patient seen in follow-up in the intensive care unit, she is awake and alert, in no acute distress, she is on room air with a pulse ox of 93-98%, afebrile, hemodynamically patient is stable, maintenance IVs 0.9 normal saline at a rate of 50, no other drips. Hemodynamically patient remains stable, he is in A. fib with a controlled rate on the monitor, patient is on oral anticoagulation for underlying chronic thromboembolic disease and chronic A. fib with a controlled rate, she denies any dyspnea, today's chest x-ray shows cardiomegaly, bibasilar increased density, bilateral pleural effusions, and adjacent atelectasis. Patient had right-sided thoracentesis with removal of 1.1 L of pleural fluid on 05/24/2019, with negative cytology and negative cultures, and the fluid was transudative in nature. Today she denies any specific complaints, she remains on IV Lasix, she is a slightly positive fluid balance over the last 24 hours, +200 mL, likely there is significant improvement in patient's dyspnea, and lower extremity edema. He will be transitioned to oral Lasix per cardiology recommendation, today's labs have been reviewed, her electrolytes and renal profile remains stable. He is receiving local wound care for her diabetic ulcers in bilateral lower extremities. She has been afebrile, abiotic coverage is in the form of cefepime and vancomycin Objective - Vital Signs Vital signs: Vital Signs Temp 98.3 F 05/28/19 08:00 Pulse 76 05/28/19 10:00 Resp 17 05/28/19 10:00 BP 109/63 05/28/19 10:00 Pulse Ox 93 L 05/28/19 10:00 Intake & Output 05/27/19 05/28/19 05/28/19 18:59 06:59 18:59 Intake Total 1511.664 850 300 Output Total 865 1295 595 Balance 646.664 -445 -295 Weight 76.8 kg Intake: IV 790 850 300 Cefepime 2 gm In Sodium 100 Chloride 0.9% 100 ml @ 200 mls/hr IVPB Q12HR [facility] Rx#:[id number] Sodium Chloride 0.9% 1, 540 600 200 000 ml @ 50 mls/hr IV . Q20H [facility] Rx#:[id number] Vancomycin 1,250 mg In 250 250 Sodium Chloride 0.9% 250 ml @ 125 mls/hr IVPB ONCE ONE Rx#:[id number] Intake, IV Titration 1.664 Amount Norepinephrine 4 mg In 1.664 Sodium Chloride 0.9% 250 ml @ 0.05 MCG/KG/MIN 12. 961 mls/hr IV .[id number] [facility] Rx#:[id number] Oral 720 Output: Urine 865 1295 595 Other: Voiding Method Indwelling Catheter Indwelling Catheter - Exam GENERAL EXAM: Alert, pleasant, 83-year-old white female, room air, with pulse ox of 93-90%, comfortable in no apparent distress. HEAD: Normocephalic/atraumatic. EYES: Normal reaction of pupils, equal size. Conjunctiva pink, sclera white. NOSE: Clear with pink turbinates. THROAT: No erythema or exudates. NECK: No masses, no JVD, no thyroid enlargement, no adenopathy. CHEST: No chest wall deformity. Symmetrical expansion. LUNGS: Equal air entry with no crackles, wheeze, rhonchi or dullness. Diminished breath sounds at bilateral bases, with minimal rales CVS: Irregular rate and rhythm, normal S1 and S2, no gallops, no murmurs, no rubs ABDOMEN: Soft, nontender. No hepatosplenomegaly, normal bowel sounds, no guarding or rigidity. EXTREMITIES: No clubbing, diabetic ulcers present to bilateral lower extremit ies, there is significant improvement in lower extremity edema, with only trace pretibial edema present to the left lower extremity, both legs are covered with dressings, no cyanosis, 2+ pulses and upper and lower extremities. MUSCULOSKELETAL: Muscle strength and tone normal. SPINE: No scoliosis or deformity SKIN: No rashes CENTRAL NERVOUS SYSTEM: Alert and oriented -3. No focal deficits, tone is normal in all 4 extremities. PSYCHIATRIC: Alert and oriented -3. Appropriate affect. Intact judgment and insight. - Labs CBC & Chem 7: 05/28/19 04:50 05/28/19 04:50 Labs: Abnormal Lab Results - Last 24 Hours (Table) 05/27/19 05/27/19 05/27/19 Range/Units 12:05 17:02 20:45 RBC (3.80-5.40) m/uL Hgb (11.4-16.0) gm/dL Hct (34.0-46.0) % RDW (11.5-15.5) % Plt Count (150-450) k/uL Sodium (137-145) mmol/L Glucose (74-99) mg/dL POC Glucose (mg/dL) 116 H 153 H 175 H (75-99) mg/dL Calcium (8.4-10.2) mg/dL Total Protein (6.3-8.2) g/dL Albumin (3.5-5.0) g/dL 05/28/19 05/28/19 05/28/19 Range/Units 04:50 04:50 06:30 RBC 3.22 L (3.80-5.40) m/uL Hgb 9.7 L (11.4-16.0) gm/dL Hct 30.2 L (34.0-46.0) % RDW 18.3 H (11.5-15.5) % Plt Count 148 L (150-450) k/uL Sodium 134 L (137-145) mmol/L Glucose 106 H (74-99) mg/dL POC Glucose (mg/dL) 101 H (75-99) mg/dL Calcium 7.4 L (8.4-10.2) mg/dL Total Protein 3.9 L (6.3-8.2) g/dL Albumin 1.6 L (3.5-5.0) g/dL Microbiology - Last 24 Hours (Table) 05/23/19 22:47 Blood Culture - Preliminary Blood No Growth after 96 hours 05/24/19 13:30 Gram Stain - Preliminary Pleural Fluid Body Fluid Culture - Preliminary Assessment and Plan Plan: 1 recurrent episodes of hypoglycemia, most likely secondary to poor oral intake, and the patient is on medications for diabetes, [facility] the [facility]. This has resolved. 2 acute metabolic encephalopathy secondary to hypoglycemia. Improved. 3 recurrent episodes of urinary tract infection secondary to ESBL E. coli and pseudomonas aeruginosa. 3 bilateral pleural effusions secondary to systolic congestive heart failure. Status post right sided thoracentesis on 05/24/2019, 1100 mL of fluid drained from the right pleural space. 4 history of pulmonary embolism documented on previous admission, and noted on CT of the chest on this admission. 5 chronic atrial fibrillation 6 LV dysfunction with ejection fraction of 35% and previous AICD placement 7 underlying coronary artery disease 8 diabetic foot ulcers 9 type 2 diabetes 10 history of chronic pancreatitis 11 severe peripheral vessel occlusive disease involving lower extremities. 12 medical debility. Plan: Continue current antibiotic coverage, cultures so far remain negative, no fever or chills, no complaints of dyspnea, or chest pain, diuretics have been transitioned to oral, continue with daily weights and accurate intake and output. Continue with oral anticoagulation, A. fib is controlled, hemodynamically patient remains stable, wound care per ID service recommendations. Chest x-ray has been reviewed showing persistence of congestive heart failure changes. Oxygenation stable on room air. Continue wi th oral Lasix. She is stable to go out of intensive care unit today to medical surgical floor with remote telemetry. I performed a history & physical examination of the patient and discussed their management with my nurse practitioner, Beatrice Fierro. I reviewed the nurse practitioner's note and agree with the documented findings and plan of care. Lung sounds are positive for diminished breath sounds at bilateral bases. The findings and the impression was discussed with the patient. I attest to the documentation by the nurse practitioner. Time with Patient: Less than 30
--- NOTE | 2019-05-28 12:15 | P.PN ---
Subjective This is a pleasant 83 years old female with multiple medical problems presents to the emergency room with hyperthermia, hypo-glycemia and found to have bilateral pleural effusion secondary to acute congestive heart failure. Her ejection fraction 30-35%. Status post left side thoracocentesis on 05/24/2019. Also she has history of pulmonary embolism status post IVC filter secondary to GI bleed. She is status post AICD. She has chronic bilateral feet want that been followed by Dr. dash. Also she has history of ESBL E. coli. Patient herself is poor historian. However she is sitting in chair comfortable in mild distress due to her pain and ulcers including bilateral feet ulcer and pressure ulcer, stage II. 05/26/2019 Patient remains in the ICU. She is more awake and oriented today she's knows [facility] She was comfortable not complaining from pain. She is not interested respiratory distress. However she's hard hearing and slow to respond. She still on norepinephrine drip. V itas looks stable with blood pressure 103/57, she is saturating 93% of oxygen on room air. She is afebrile. Labs reviewed some looks stable within WBC of 9.5K and creatinine 0.5. Patient is making good urine output after Lasix 40 mg twice a day was started yesterday. She remains on cefepime and IV vancomycin. She was also on amiodarone and small dose of metoprolol. Discussed with staff and ada willis of records from nursing homes. Patient looks like she was taken Eliquis at shelter despite history of GI bleed. The go to start her Eliquis and call cardiology consult. Patient has DO NOT RESUSCITATE order 05/27/2019 Patient is still awake and oriented but lethargic. Her Levophed has stopped all her blood pressure still on the low normal side. No going to keep monitoring the ICU for a few hours and her blood pressure is stable patient can be transferred to the general medical floor upon critical care team recommendation. Keep monitoring patient and her MAP. Patient systolic on antibiotics of cefepime and Vanco for her severe infection from her wounds. Continue with wound dressing. She is currently on Lasix 40 mg twice daily. Cardiology is going to evaluate the patient. Also patient is on Eliquis which was started as her home medication. Heart rate is slightly bradycardic as 59, blood pressure currently 101/58, patient is afebrile. WBC remains stable and within normal limits at 8.6K, hemoglobin 10.5, platelets 138 on the low side. Creatinine is 0.4, sugars controlled less than 200. 05/28/2019 Patient is weak but she is improving gradually. No need for pressors. Her blood pressure is low normal, currently 96/59, with occasionally drops sometimes, MRSA Vitas looks stable and patient is afebrile and she is saturating 91-93% on room air. Labs reviewed showing total BC 8.4K, hemoglobin 9.7, slightly low platelets at 148. Mild hyponatremia and 134, creatinine is normal 0.5. Sugars controlled. Liver enzymes not elevated. Her Lasix is wished from 40 IV twice daily to 18 by mouth twice daily. And her medial drain was increased to 5 mg 3 times a day. Continue with Eliquis 5 mg twice daily. Review of systems CONSTITUTIONAL: No fever, no malaise, no fatigue. HEENT: No recent visual problems or hearing problems. Denied any sore throat. CARDIOVASCULAR: No orthopnea, PND, no palpitations, no syncope. PULMONARY: No shortness of breath, no cough, no hemoptysis. GASTROINTESTINAL: No diarrhea, no nausea, no vomiting, no abdominal pain. Normoactive bowel sounds. NEUROLOGICAL: No headaches, no weakness, no numbness. HEMATOLOGICAL: Denies any bleeding or petechiae. GENITOURINARY: Denies any burning micturition, frequency, or urgency. MUSCULOSKELETAL/RHEUMATOLOGICAL: Denies any joint pain, swelling, or any muscle pain. ENDOCRINE: Denies any polyuria or polydipsia. Active Medications Generic Name Dose Route Start Last Admin Trade Name Freq PRN Reason Stop Dose Admin Acetaminophen 325 mg 05/24/19 02:20 05/27/19 12:33 Tylenol Tab PO 325 mg Q6HR PRN Administration Fever and/ or Pain Amiodarone HCl 200 mg 05/24/19 14:45 05/28/19 08:51 Cordarone PO 200 mg DAILY [facility] Administration Apixaban 5 mg 05/26/19 11:45 05/28/19 08:51 Eliquis PO 5 mg BID [facility] Administration Atorvastatin Calcium 40 mg 05/25/19 09:00 05/28/19 08:51 Lipitor PO 40 mg DAILY [facility] Administration Bisacodyl 10 mg 05/24/19 14:41 05/26/19 16:31 Dulcolax RECTAL 10 mg DAILY PRN Administration Constipation Clonazepam 0.5 mg 05/24/19 21:00 05/26/19 23:34 Klonopin PO 0.5 mg BID PRN Administration anxiety Diclofenac Sodium 2 gm 05/24/19 18:00 05/28/19 08:51 Voltaren Gel TOPICAL 2 gm QID [facility] Administration Furosemide 80 mg 05/28/19 16:00 Lasix PO BID@0900,1600 [facility] Gabapentin 100 mg 05/24/19 21:00 05/28/19 06:06 Neurontin PO 100 mg TID@0600,1400,2100 [facility] Administration Vancomycin HCl 1,250 mg/ 250 mls @ 125 mls/hr 05/24/19 23:00 05/28/19 06:07 Sodium Chloride IVPB 125 mls/hr Q16H [facility] Administration Cefepime HCl 2 gm/ Sodium 100 mls @ 200 mls/hr 05/25/19 09:00 05/28/19 08:51 Chloride IVPB 200 mls/hr Q12HR [facility] Administration Sodium Chloride 1,000 mls @ 20 mls/hr 05/25/19 05:15 05/27/19 17:11 Saline 0.9% IV 50 mls/hr .Q24H [facility] Administration Insulin Aspart 0 unit 05/25/19 05:03 05/28/19 06:34 Novolog SQ Not Given ACHS [facility] Protocol Magnesium Oxide 400 mg 05/24/19 17:00 05/28/19 08:50 Mag-Ox PO 400 mg BID@0800,1700 [facility] Administration Methyl Salicylate 1 applic 05/24/19 14:41 Thera-Gesic Cream TOPICAL DAILY PRN LEFT SHOULDER PAIN Metoprolol Tartrate 12.5 mg 05/24/19 16:00 05/28/19 08:52 Lopressor PO 12.5 mg TID [facility] Administration Midodrine 5 mg 05/27/19 17:30 05/28/19 08:50 Proamatine PO 5 mg AC-TID [facility] Administration Miscellaneous Information 1 each 05/26/19 11:42 Potassium Per Protocol MISCELLANE DAILY PRN Per Protocol Protocol Miscellaneous Information 1 each 05/28/19 22:00 Vancomycin Trough Due MISCELLANE 05/28/19 22:01 ONCE ONE Naloxone HCl 0.2 mg 05/24/19 02:15 Narcan IV Q2M PRN Opioid Reversal Ondansetron HCl 4 mg 05/26/19 14:19 05/26/19 14:30 Zofran IVP 4 mg Q6HR PRN Administration Nausea And Vomiting Oxybutynin Chloride 10 mg 05/25/19 08:00 05/28/19 08:50 Ditropan Xl PO 10 mg DAILY@0800 [facility] Administration Pantoprazole Sodium 40 mg 05/24/19 14:45 05/28/19 08:50 Protonix PO 40 mg AC-[id number] [facility] Administration Pentoxifylline 400 mg 05/24/19 17:00 05/28/19 08:50 Trental PO 400 mg TID@0800,1200,1700 [facility] Administration Potassium Chloride 10 meq 05/25/19 09:00 05/28/19 08:52 K-Dur 10 PO 10 meq DAILY [facility] Administration Sertraline HCl 25 mg 05/24/19 14:45 05/28/19 08:52 Zoloft PO 25 mg DAILY [facility] Administration Simethicone 80 mg 05/24/19 17:00 05/28/19 08:51 Mylicon Chew PO 80 mg TID@0800,1200,1700 [facility] Administration Sodium Bicarbonate 5 ml 05/26/19 11:00 05/27/19 17:12 PO 5 ml 5XD PRN Administration Mouth Sore Pain Thiamine HCl 100 mg 05/24/19 17:00 05/27/19 17:10 Vitamin B-1 PO 100 mg DAILY@1700 [facility] Administration Tramadol HCl 25 mg 05/24/19 14:41 05/28/19 10:41 Ultram PO 25 mg Q6HR PRN Administration Severe Pain Ursodiol 300 mg 05/24/19 21:00 05/28/19 08:51 Actigall PO 300 mg BID@0800,2100 [facility] Administration Objective - Vital Signs Vital signs: Vital Signs Temp 98.3 F 05/28/19 08:00 Pulse 69 05/28/19 11:00 Resp 14 05/28/19 11:00 BP 96/52 05/28/19 11:00 Pulse Ox 91 L 05/28/19 11:00 Intake & Output 05/27/19 05/28/19 05/28/19 18:59 06:59 18:59 Intake Total 1511.664 850 320 Output Total 865 1295 695 Balance 646.664 -445 -375 Weight 76.8 kg Intake: IV 790 850 320 Cefepime 2 gm In Sodium 100 Chloride 0.9% 100 ml @ 200 mls/hr IVPB Q12HR [facility] Rx#:[id number] Sodium Chloride 0.9% 1, 540 600 220 000 ml @ 20 mls/hr IV . Q24H [facility] Rx#:[id number] Vancomycin 1,250 mg In 250 250 Sodium Chloride 0.9% 250 ml @ 125 mls/hr IVPB ONCE ONE Rx#:[id number] Intake, IV Titration 1.664 Amount Norepinephrine 4 mg In 1.664 Sodium Chloride 0.9% 250 ml @ 0.05 MCG/KG/MIN 12. 961 mls/hr IV .[id number] [facility] Rx#:[id number] Oral 720 Output: Urine 865 1295 695 Other: Voiding Method Indwelling Catheter Indwelling Catheter Indwelling Catheter - Exam -GENERAL: The patient is alert and oriented x1-2, not in any acute distress. Well developed, well nourished. HEENT: Pupils are round and equally reacting to light. EOMI. No scleral icterus. No conjunctival pallor. Normocephalic, atraumatic. No pharyngeal erythema. No thyromegaly. CARDIOVASCULAR: S1 and S2 present. No murmurs, rubs, or gallops. PULMONARY: Chest is clear to auscultation, no wheezing or crackles. ABDOMEN: Soft, nontender, nondistended, normoactive bowel sounds. No palpable organomegaly. -MUSCULOSKELETAL: No joint swelling or deformity. Stage II decubitus sacral ulcer -EXTREMITIES: No cyanosis, clubbing,. She has swelling in all extremities. Bilateral foot wounds NEUROLOGICAL: Gross neurological examination did not reveal any focal deficits. SKIN: No rashes. - Labs CBC & Chem 7: 05/28/19 04:50 05/28/19 04:50 Labs: Abnormal Lab Results - Last 24 Hours (Table) 05/27/19 05/27/19 05/27/19 Range/Units 12:05 17:02 20:45 RBC (3.80-5.40) m/uL Hgb (11.4-16.0) gm/dL Hct (34.0-46.0) % RDW (11.5-15.5) % Plt Count (150-450) k/uL Sodium (137-145) mmol/L Glucose (74-99) mg/dL POC Glucose (mg/dL) 116 H 153 H 175 H (75-99) mg/dL Calcium (8.4-10.2) mg/dL Total Protein (6.3-8.2) g/dL Albumin (3.5-5.0) g/dL 05/28/19 05/28/19 05/28/19 Range/Units 04:50 04:50 06:30 RBC 3.22 L (3.80-5.40) m/uL Hgb 9.7 L (11.4-16.0) gm/dL Hct 30.2 L (34.0-46.0) % RDW 18.3 H (11.5-15.5) % Plt Count 148 L (150-450) k/uL Sodium 134 L (137-145) mmol/L Glucose 106 H (74-99) mg/dL POC Glucose (mg/dL) 101 H (75-99) mg/dL Calcium 7.4 L (8.4-10.2) mg/dL Total Protein 3.9 L (6.3-8.2) g/dL Albumin 1.6 L (3.5-5.0) g/dL Microbiology - Last 24 Hours (Table) 05/23/19 22:47 Blood Culture - Preliminary Blood No Growth after 96 hours 05/24/19 13:30 Gram Stain - Preliminary Pleural Fluid Body Fluid Culture - Preliminary Assessment and Plan Assessment: -Severe sepsis secondary to pressure ulcers on bilateral feet wound. Patient might have some elements of metabolic encephalopathy as well. Improving -Systemic inflammatory response with leukocytosis and hyperthermia, with tachycardia and tachypnea present on admission -Bilateral pleural effusion secondary to acute systolic on chronic congestive heart failure. Ejection fraction 30-35% -Generalized anasarca, mostly multifactorial including heart disease and infection. Improving on Lasix -History of pulmonary embolism status post IVC filter secondary to GI bleed -Bilateral heel wounds that she used to follow-up as an outpatient -History of ESBL E. coli UTI. Plan: This is a pleasant 83 years old female who presents with infection and congestive heart failure. Continue with antibiotics as per ID team recommendation. She is a status post thoracocentesis, follow-up Results. Follow-up recommendation from pulmonary/critical care team. Continue with Lasix. Continue with Eliquis. Continue with midodrine Labs and medication were reviewed.. Continue same treatment. Continue with sy mptomatic treatment. Resume home medication. Monitor lytes and vitals. DVT and GI prophylaxis. Further recommendations of the clinical course of the patient DVT prophylaxis: Eliquis. GI prophylaxis: Protonix Prognosis is guarded
[2019-05-28 12:28] LABS: Glucose,Whole Blood 129 mg/dL (75-99)
[2019-05-28] MEDS: FUROSEMIDE 80 MG TAB PO SCH (16:06)
[2019-05-28 16:57] LABS: Glucose,Whole Blood 107 mg/dL (75-99)
--- NOTE | 2019-05-28 17:53 | PN ---
PROGRESS NOTE DATE OF SERVICE: 05/28/2019. REASON FOR FOLLOWUP: 1. Pleural effusion and a question of pneumonia. 2. Bilateral diabetic foot wound. 3. Sacral pressure ulcer. INTERVAL HISTORY: The patient is currently afebrile. The patient is breathing comfortably. She is hemodynamically stable. Not on any pressor support and no worsening pain to the wound area. EXAMINATION: Blood pressure is 87/37, pulse of 77, temperature 98.2. She is 97% on room air. General description is an elderly female lying in bed in no distress. Respiratory system: Unlabored breathing with decreased breath sounds in the bases. No wheeze. Heart S1, S2. Regular rate and rhythm. Abdomen soft. No tenderness. Wounds are currently dressed up. No obvious drainage on the dressing. LABS: Hemoglobin 9.5, white count 8.4, BUN of 15, creatinine 0.54, culture so far negative. Blood culture negative. DIAGNOSTIC IMPRESSION/PLAN: 1. Patient admitted to the hospital with weakness, low blood sugar and pleural effusion status post thoracocentesis. Cultures have been negative so far. Keep the patient on Cefepime, however, discontinue vancomycin as no MRSA has been grown. 2. Patient with bilateral diabetic foot wound. Local wound care with Medihoney. Keep the area off the pressure. 3. Stage III sacral wound with no cellulitis. Local wound care with Medihoney. Keep the area off the pressure. MMODL / IJN: [id number] /
[2019-05-28] MEDS: THIAMINE 100 MG TAB PO SCH (18:26)
[2019-05-28] MEDS: SODIUM CHLORIDE 0.9% 1,000 ML IV SCH (18:28)
[2019-05-28 20:57] LABS: Glucose,Whole Blood 196 mg/dL (75-99)
[2019-05-28] MEDS ORDERED: VANCOMYCIN TROUGH DUE 1 EACH MISC MISCELLANE ONE (22:00)
[2019-05-29 04:22] LABS: Anisocytosis Slight; Basophils % (A) 0 %; Eosinophils # (A) 0.2 k/uL (0-0.7); Eosinophils % (A) 2 %; HCT 31.2 % (34.0-46.0); Lymphocytes % (A) 12 %; MCH 29.6 pg (25.0-35.0); MCHC 31.9 g/dL (31.0-37.0); MCV 92.8 fL (80.0-100.0); Mean Platelet Volume 8.3; Monocytes # (A) 0.4 k/uL (0-1.0); Monocytes % (A) 5 %; Neutrophils # (A) 6.3 k/uL (1.3-7.7); Neutrophils % (A) 80 %; Platelet Count 143 k/uL (150-450); RBC 3.36 m/uL (3.80-5.40); WBC 7.9 k/uL (3.8-10.6)
[2019-05-29 04:31] LABS: African American GFR (CKD) >90 (>60 ml/min/1.73 sqM); Anion Gap 0 mmol/L; Blood Urea Nitrogen 15 mg/dL (7-17); Calcium 7.5 mg/dL (8.4-10.2); Carbon Dioxide 32 mmol/L (22-30); Chloride 101 mmol/L (98-107); Glucose 118 mg/dL (74-99); Potassium 3.7 mmol/L (3.5-5.1); Sodium 133 mmol/L (137-145)
[2019-05-29] MEDS: POTASSIUM CHLORIDE 10 MEQ in WATER FOR INJECTION 1 100ML.BAG IVPB SCH ×2 (04:45→05:47)
[2019-05-29] MEDS: GABAPENTIN 100 MG CAP PO SCH ×3 (05:50→20:49)
[2019-05-29] MEDS: INSULIN ASPART (NovoLOG) 100 UNIT/ML VIAL SQ SCH ×4 (06:58→20:49)
[2019-05-29 07:00] LABS: Glucose,Whole Blood 103 mg/dL (75-99)
[2019-05-29] MEDS: MIDODRINE 5 MG TAB PO SCH ×3 (07:03→17:34)
[2019-05-29] MEDS: PANTOPRAZOLE 40 MG TABLET PO SCH (07:03)
[2019-05-29] MEDS: MAGNESIUM OXIDE 400 MG TAB PO SCH ×2 (09:07→17:33)
[2019-05-29] MEDS: SIMETHICONE 80 MG CHEWABLE PO SCH ×3 (09:08→17:33)
[2019-05-29] MEDS: URSODIOL 300 MG CAP PO SCH ×2 (09:08→20:50)
[2019-05-29] MEDS: OXYBUTYNIN XL 5 MG TAB.ER.24 PO SCH (09:08)
[2019-05-29] MEDS: PENTOXIFYLLINE 400 MG TABLET.ER PO SCH ×3 (09:08→17:33)
[2019-05-29] MEDS: APIXABAN 5 MG TAB PO SCH ×2 (09:09→20:49)
[2019-05-29] MEDS: AMIODARONE 200 MG TAB PO SCH (09:09)
[2019-05-29] MEDS: ATORVASTATIN 40 MG TAB PO SCH (09:09)
[2019-05-29] MEDS: CEFEPIME 2 GM in SODIUM CHLORIDE 0.9% 100 ML IVPB SCH ×2 (09:09→20:49)
[2019-05-29] MEDS: DICLOFENAC SODIUM GEL 100 GM TUBE TOPICAL SCH ×4 (09:10→20:50)
[2019-05-29] MEDS: FUROSEMIDE 80 MG TAB PO SCH ×2 (09:11→17:33)
[2019-05-29] MEDS: SERTRALINE 25 MG TAB PO SCH (09:11)
[2019-05-29] MEDS: METOPROLOL TARTRATE 12.5 MG TAB PO SCH ×3 (09:11→20:49)
[2019-05-29] MEDS: POTASSIUM CHLORIDE ER 10 MEQ TAB.ER.PRT PO SCH (09:24)
--- NOTE | 2019-05-29 10:12 | P.PN ---
Subjective Progress Note Date: 05/29/19 Principal diagnosis: Recurrent episodes of hypoglycemia, metabolic encephalopathy, and bilateral pleural effusions this is an 83-year-old female with history of multiple medical problems including chronic atrial fibrillation, type 2 diabetes,coronary artery disease, hypertension, LV dysfunction with ejection fraction of 35%, previous AICD placement, diabetic ulcers in both feet bilaterally, recurrent urinary tract infections, previous ESBL urinary tract infection, cervical cancer, severe peripheral vessel occlusive disease, patient is a alf patient, brought in yesterday mostly with complaints of mental status change, patient was noted to be confused, weak, did not eat her dinner, and she was noted to have hypoglycemia with blood sugar about 43. Patient was given glucagon injection by the alf staff, her sugar came up to 51, and IV could not be estab lished. EMS arrived to the scene, and she was given 1 amp of D50. Her blood sugar improved, patient became more alert, and arrangements were made to transfer the patient to the hospital ER. Upon arrival to the ER, patient was noted to be hypotensive, apparently CODE STATUS was discussed with the patient, and it was confirmed to be DO NOT RESUSCITATE. Initially the family declined having a central line placement, however as there was extreme difficulty in establishing a peripheral IV access, finally the daughter agreed to a central line which was placed by the ER physician in the left groin. Patient had a chest x-ray which showed significant pleural effusion bilaterally. And a CT of the chest read as no evidence of pulmonary embolism, however as I reviewed the CT of the chest, discussed the findings with Dr. 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 It is similar to previous CT done on her last admission. Patient has been on Eliquis for DVT and pulmonary embolism. And supposedly compliant with it. In addition the CT of the chest showed significant bilateral pleural effusions right more so than left, and this was confirmed by ultrasound today. Patient was admitted to the ICU but she did not require any norepinephrine. She was given few fluid boluses in the ER, and her blood pressure seems to be stable at this point. She was placed on vancomycin and Levaquin empirically. Reevaluated today on 05/25/2019, patient remains in the ICU, she is presently on room air, however she is requiring 0.04 mcg/kg/m of norepinephrine. Blood pressures seems to be marginal. Patient had a follow-up chest x-ray this morning showed small bilateral pleural effusions, she underwent right sided thoracentesis yesterday, and I was able to drain about 1100 mL of free flowing fluid, most likely transudative in nature, workup is pending on the fluid. Again the patient is feeling great but since she remains on norepinephrine, I will keep in the ICU and was she is off norepinephrine we could possibly transferred to a regular medical floor. In the meantime she is receiving antibiotics, she is back on her anticoagulation therapy for pulmonary embolism, and she is on diuretics. She is being followed by many consultants. Reevaluated today on 05/26/2019, patient remains in the ICU, and the only reason she is in the ICU is because she is still requiring norepinephrine at 0.04 mcg/kg/m. Blood pressure remains marginal. Her urine output is excellent, chest x-ray is showing bilateral pleural effusions again, but since she had her right sided thoracentesis, the patient has been doing extremely well. The pleural effusion I drained from the right side is transudative in nature and clearly cardiogenic/related to congestive heart failure. Labs were all reviewed including CBC and electrolytes and renal profile be seen to be relatively unremarkable. Daughter is at bedside, and she was updated on her condition and why she is still in the ICU. Once we could discontinue norepinephrine, patient could be transferred to a cardiac floor or a regular medical floor with remote telemetry. Reevaluated today on 05/27/2019, patient remains in the ICU, however she has been off norepinephrine and her blood pressure seems to be marginal and stable. Patient remains on room air, denies any shortness of breath cough or wheezing, she had some headache earlier, and she was given Tylenol. Her last chest x-ray was done yesterday, plan to repeat her chest x-ray tomorrow for follow-up on her pleural effusions. Patient is on diuretics, she is also on anticoagulations therapy for her underlying thromboembolic disease/pulmonary embolism. Labs today showed relatively normal CBC hemoglobin is 10.5 and lites are normal renal profile is normal. Potassium is a bit low at 3.5 being corrected as per protocol. On 05/28/2019 patient seen in follow-up in the intensive care unit, she is awake and alert, in no acute distress, she is on room air with a pulse ox of 93-98%, afebrile, hemodynamically patient is stable, maintenance IVs 0.9 normal saline at a rate of 50, no other drips. Hemodynamically patient remains stable, he is in A. fib with a controlled rate on the monitor, patient is on oral anticoagulation for underlying chronic thromboembolic disease and chronic A. fib with a controlled rate, she denies any dyspnea, today's chest x-ray shows cardiomegaly, bibasilar increased density, bilateral pleural effusions, and adjacent atelectasis. Patient had right-sided thoracentesis with removal of 1.1 L of pleural fluid on 05/24/2019, with negative cytology and negative cultures, and the fluid was transudative in nature. Today she denies any specific complaints, she remains on IV Lasix, she is a slightly positive fluid balance over the last 24 hours, +200 mL, likely there is significant improvement in patient's dyspnea, and lower extremity edema. He will be transitioned to oral Lasix per cardiology recommendation, today's labs have been reviewed, her electrolytes and renal profile remains stable. He is receiving local wound care for her diabetic ulcers in bilateral lower extremities. She has been afebrile, abiotic coverage is in the form of cefepime and vancomycin. On 05/29/2019 patient seen in follow-up in the intensive care unit, she is awake and alert, in no acute distress, signs are stable, A. fib is controlled, she is on oral anticoagulation, maintenance IV fluids 0.9 normal saline a rate of 10 ML per hour, no vasoactive drips. No specific complaints, no acute events overnig ht, denies any chest pain, denies any shortness of breath, lung sounds reveal some minimal crackles at the right lower base posteriorly, no rhonchi or wheezing. Patient is on oral Lasix 80 mg twice daily, and she is in negative fluid balance 1260 mL. Her lung status is improving, no new chest x-ray today, labs reviewed, showing low blood cell count of 7.9, hemoglobin is 10, sodium is 133, potassium 3.7, chloride is 101, CO2 32, BUN is 15 creatinine is 0.51. Lower extremity edema has improved, local wound care per ID service recommendation, microbiology results have been reviewed, negative for growth and blood urine and pleural fluid cultures. Cytology of the pleural fluid was negative. Currently on cefepime and vancomycin. From pulmonary perspective patient is stable for discharge back to the [facility] possibly in the next 24 hours. Objective - Vital Signs Vital signs: Vital Signs Temp 98.1 F 05/29/19 08:00 Pulse 80 05/29/19 09:00 Resp 15 05/29/19 09:00 BP 92/59 05/29/19 09:00 Pulse Ox 83 L 05/29/19 09:00 Intake & Output 05/28/19 05/29/19 05/29/19 18:59 06:59 18:59 Intake Total 400 460 40 Output Total 1295 825 240 Balance -895 -365 -200 Weight 72.2 kg Intake: IV 400 460 40 Cefepime 2 gm In Sodium 100 100 Chloride 0.9% 100 ml @ 200 mls/hr IVPB Q12HR [facility] Rx#:[id number] Sodium Chloride 0.9% 1, 300 360 40 000 ml @ 20 mls/hr IV . Q24H [facility] Rx#:[id number] Output: Urine 1295 825 240 Other: Voiding Method Indwelling Catheter Indwelling Catheter Indwelling Catheter - Exam GENERAL EXAM: Alert, pleasant, 83-year-old white female, room air, with pulse ox of 93-90%, comfortable in no apparent distress. HEAD: Normocephalic/atraumatic. EYES: Normal reaction of pupils, equal size. Conjunctiva pink, sclera white. NOSE: Clear with pink turbinates. THROAT: No erythema or exudates. NECK: No masses, no JVD, no thyroid enlargement, no adenopathy. CHEST: No chest wall deformity. Symmetrical expansion. LUNGS: Equal air entry with no crackles, wheeze, rhonchi or dullness. Diminished breath sounds at bilateral bases, with minimal rales CVS: Irregular rate and rhythm, normal S1 and S2, no gallops, no murmurs, no rubs ABDOMEN: Soft, nontender. No hepatosplenomegaly, normal bowel sounds, no guarding or rigidity. EXTREMITIES: No clubbing, diabetic ulcers present to bilateral lower extremities, there is significant improvement in lower extremity edema, with only trace pretibial edema present to the left lower extremity, both legs are covered with dressings, no cyanosis, 2+ pulses and upper and lower extremities. MUSCULOSKELETAL: Muscle strength and tone normal. SPINE: No scoliosis or deformity SKIN: No rashes CENTRAL NERVOUS SYSTEM: Alert and oriented -3. No focal deficits, tone is normal in all 4 extremities. PSYCHIATRIC: Alert and oriented -3. Appropriate affect. Intact judgment and insight. - Labs CBC & Chem 7: 05/29/19 04:00 05/29/19 04:00 Labs: Abnormal Lab Results - Last 24 Hours (Table) 05/28/19 05/28/19 05/28/19 Range/Units 12:02 16:55 20:31 RBC (3.80-5.40) m/uL Hgb (11.4-16.0) gm/dL Hct (34.0-46.0) % RDW (11.5-15.5) % Plt Count (150-450) k/uL Sodium (137-145) mmol/L Carbon Dioxide (22-30) mmol/L Creatinine (0.52-1.04) mg/dL Glucose (74-99) mg/dL POC Glucose (mg/dL) 129 H 107 H 196 H (75-99) mg/dL Calcium (8.4-10.2) mg/dL 05/29/19 05/29/19 05/29/19 Range/Units 04:00 04:00 06:56 RBC 3.36 L (3.80-5.40) m/uL Hgb 10.0 L (11.4-16.0) gm/dL Hct 31.2 L (34.0-46.0) % RDW 18.0 H (11.5-15.5) % Plt Count 143 L (150-450) k/uL Sodium 133 L (137-145) mmol/L Carbon Dioxide 32 H (22-30) mmol/L Creatinine 0.51 L (0.52-1.04) mg/dL Glucose 118 H (74-99) mg/dL POC Glucose (mg/dL) 103 H (75-99) mg/dL Calcium 7.5 L (8.4-10.2) mg/dL Microbiology - Last 24 Hours (Table) 05/23/19 22:47 Blood Culture - Preliminary Blood No Growth after 120 hours 05/24/19 13:30 Gram Stain - Final Pleural Fluid Body Fluid Culture - Final Assessment and Plan Plan: 1 recurrent episodes of hypoglycemia, most likely secondary to poor oral intake, and the patient is on medications for diabetes, given to her at the alf. This has resolved. 2 acute metabolic encephalopathy secondary to hypoglycemia. Improved. 3 recurrent episodes of urinary tract infection secondary to ESBL E. coli and pseudomonas aeruginosa. 3 bilateral pleural effusions secondary to systolic congestive heart failure. Status post right sided thoracentesis on 05/24/2019, 1100 mL of fluid drained from the right pleural space. 4 history of pulmonary embolism documented on previous admission, and noted on CT of the chest on this admission. 5 chronic atrial fibrillation 6 LV dysfunction with ejection fraction of 35% and previous AICD placement 7 underlying coronary artery disease 8 diabetic foot ulcers 9 type 2 diabetes 10 history of chronic pancreatitis 11 severe peripheral vessel occlusive disease involving lower extremities. 12 medical debility. Plan: No acute events overnight, breathing is stable, vitals are stable, no fever or chills, and backs per ID service recommendations, continue with oral Lasix, oral anticoagulation, fluid volume status is improving, lower extremity edema is improving, labs reviewed, no new chest x-rays, from pulmonary perspective patient is stable for [facility]CF discharge in next 24 hours. I performed a history & physical examination of the patient and discussed their management with my nurse practitioner, Beatrice Fierro. I reviewed the nurse practitioner's note and agree with the documented findings and plan of care. Lung sounds are positive for diminished breath sounds at bilateral bases. The findings and the impression was discussed with the patient. I attest to the documentation by the nurse practitioner. Time with Patient: Less than 30
--- NOTE | 2019-05-29 10:28 | P.PN ---
Subjective This is a pleasant 83 years old female with multiple medical problems presents to the emergency room with hyperthermia, hypo-glycemia and found to have bilateral pleural effusion secondary to acute congestive heart failure. Her ejection fraction 30-35%. Status post left side thoracocentesis on 05/24/2019. Also she has history of pulmonary embolism status post IVC filter secondary to GI bleed. She is status post AICD. She has chronic bilateral feet want that been followed by Dr. dash. Also she has history of ESBL E. coli. Patient herself is poor historian. However she is sitting in chair comfortable in mild distress due to her pain and ulcers including bilateral feet ulcer and pressure ulcer, stage II. 05/26/2019 Patient remains in the ICU. She is more awake and oriented today she's knows that she is at [facility]. She was comfortable not complaining from pain. She is not interested respiratory distress. However she's hard hearing and slow to respond. She still on norepinephrine drip. V itas looks stable with blood pressure 103/57, she is saturating 93% of oxygen on room air. She is afebrile. Labs reviewed some looks stable within WBC of 9.5K and creatinine 0.5. Patient is making good urine output after Lasix 40 mg twice a day was started yesterday. She remains on cefepime and IV vancomycin. She was also on amiodarone and small dose of metoprolol. Discussed with staff and ada willis of records from nursing homes. Patient looks like she was taken Eliquis at custodial despite history of GI bleed. The go to start her Eliquis and call cardiology consult. Patient has DO NOT RESUSCITATE order 05/27/2019 Patient is still awake and oriented but lethargic. Her Levophed has stopped all her blood pressure still on the low normal side. No going to keep monitoring the ICU for a few hours and her blood pressure is stable patient can be transferred to the general medical floor upon critical care team recommendation. Keep monitoring patient and her MAP. Patient systolic on antibiotics of cefepime and Vanco for her severe infection from her wounds. Continue with wound dressing. She is currently on Lasix 40 mg twice daily. Cardiology is going to evaluate the patient. Also patient is on Eliquis which was started as her home medication. Heart rate is slightly bradycardic as 59, blood pressure currently 101/58, patient is afebrile. WBC remains stable and within normal limits at 8.6K, hemoglobin 10.5, platelets 138 on the low side. Creatinine is 0.4, sugars controlled less than 200. 05/28/2019 Patient is weak but she is improving gradually. No need for pressors. Her blood pressure is low normal, currently 96/59, with occasionally drops sometimes, MRSA Vitas looks stable and patient is afebrile and she is saturating 91-93% on room air. Labs reviewed showing total BC 8.4K, hemoglobin 9.7, slightly low platelets at 148. Mild hyponatremia and 134, creatinine is normal 0.5. Sugars controlled. Liver enzymes not elevated. Her Lasix is wished from 40 IV twice daily to 18 by mouth twice daily. And her medial drain was increased to 5 mg 3 times a day. Continue with Eliquis 5 mg twice daily. 05/29/2019 Patient remains in the ICU as select overflow. She is fully awake and oriented and she complains from pain and her feet more on the left side. However she is not in distress and she is on pain medication. Pressure on the low normal side however it felt satisfactory by both pulmonary/critical care and cardiology teams, patient has good urine output about 400-600 overnight and she is currently on Lasix 80 mg by mouth twice daily. She has no symptoms of dizziness or chest pain or dyspnea. Blood pressure currently is 92/59, MRSA Vitas looks stable, CBC showing stable WBC, hemoglobin and platelets, sodium stable at 133 and creatinine is normal 0.5, sugars controlled. Patient is currently on cefepime Review of systems CONSTITUTIONAL: No fever, no malaise, no fatigue. HEENT: No recent visual problems or hearing problems. Denied any sore throat. CARDIOVASCULAR: No orthopnea, PND, no palpitations, no syncope. PULMONARY: No shortness of breath, no cough, no hemoptysis. GASTROINTESTINAL: No diarrhea, no nausea, no vomiting, no abdominal pain. Normoactive bowel sounds. NEUROLOGICAL: No headaches, no weakness, no numbness. HEMATOLOGICAL: Denies any bleeding or petechiae. GENITOURINARY: Denies any burning micturition, frequency, or urgency. MUSCULOSKELETAL/RHEUMATOLOGICAL: Denies any joint pain, swelling, or any muscle pain. ENDOCRINE: Denies any polyuria or polydipsia. Active Medications Generic Name Dose Route Start Last Admin Trade Name Conradoq PRN Reason Stop Dose Admin Acetaminophen 325 mg 05/24/19 02:20 05/27/19 12:33 Tylenol Tab PO 325 mg Q6HR PRN Administration Fever and/ or Pain Amiodarone HCl 200 mg 05/24/19 14:45 05/29/19 09:09 Cordarone PO 200 mg DAILY KEVEN Administration Apixaban 5 mg 05/26/19 11:45 05/29/19 09:09 Eliquis PO 5 mg BID KEVEN Administration Atorvastatin Calcium 40 mg 05/25/19 09:00 05/29/19 09:09 Lipitor PO 40 mg DAILY KEVEN Administration Bisacodyl 10 mg 05/24/19 14:41 05/26/19 16:31 Dulcolax RECTAL 10 mg DAILY PRN Administration Constipation Clonazepam 0.5 mg 05/24/19 21:00 05/26/19 23:34 Klonopin PO 0.5 mg BID PRN Administration anxiety Diclofenac Sodium 2 gm 05/24/19 18:00 05/29/19 09:10 Voltaren Gel TOPICAL 2 gm QID KEVEN Administration Furosemide 80 mg 05/28/19 16:00 05/29/19 09:11 Lasix PO 80 mg BID@0900,1600 KEVEN Administration Gabapentin 100 mg 05/24/19 21:00 05/29/19 05:50 Neurontin PO 100 mg TID@0600,1400,2100 KEVEN Administration Cefepime HCl 2 gm/ Sodium 100 mls @ 200 mls/hr 05/25/19 09:00 05/29/19 09:09 Chloride IVPB 200 mls/hr Q12HR KEVEN Administration Sodium Chloride 1,000 mls @ 20 mls/hr 05/25/19 05:15 05/28/19 18:28 Saline 0.9% IV 20 mls/hr .Q24H KEVEN Administration Insulin Aspart 0 unit 05/25/19 05:03 05/29/19 06:58 Novolog SQ Not Given ACHS [facility] Protocol Magnesium Oxide 400 mg 05/24/19 17:00 05/29/19 09:07 Mag-Ox PO 400 mg BID@0800,1700 KEVEN Administration Methyl Salicylate 1 applic 05/24/19 14:41 Thera-Gesic Cream TOPICAL DAILY PRN LEFT SHOULDER PAIN Metoprolol Tartrate 12.5 mg 05/24/19 16:00 05/29/19 09:11 Lopressor PO 12.5 mg TID KEVEN Administration Midodrine 5 mg 05/27/19 17:30 05/29/19 07:03 Proamatine PO 5 mg AC-TID KEVEN Administration Miscellaneous Information 1 each 05/26/19 11:42 Potassium Per Protocol MISCELLANE DAILY PRN Per Protocol Protocol Naloxone HCl 0.2 mg 05/24/19 02:15 Narcan IV Q2M PRN Opioid Reversal Ondansetron HCl 4 mg 05/26/19 14:19 05/26/19 14:30 Zofran IVP 4 mg Q6HR PRN Administration Nausea And Vomiting Oxybutynin Chloride 10 mg 05/25/19 08:00 05/29/19 09:08 Ditropan Xl PO 10 mg DAILY@0800 KEVEN Administration Pantoprazole Sodium 40 mg 05/24/19 14:45 05/29/19 07:03 Protonix PO 40 mg AC-BRKFST KEVEN Administration Pentoxifylline 400 mg 05/24/19 17:00 05/29/19 09:08 Trental PO 400 mg TID@0800,1200,1700 KEVEN Administration Potassium Chloride 10 meq 05/25/19 09:00 05/29/19 09:24 K-Dur 10 PO 10 meq DAILY KEVEN Administration Sertraline HCl 25 mg 05/24/19 14:45 05/29/19 09:11 Zoloft PO 25 mg DAILY KEVEN Administration Simethicone 80 mg 05/24/19 17:00 05/29/19 09:08 Mylicon Chew PO 80 mg TID@0800,1200,1700 KEVEN Administration Sodium Bicarbonate 5 ml 05/26/19 11:00 05/27/19 17:12 PO 5 ml 5XD PRN Administration Mouth Sore Pain Thiamine HCl 100 mg 05/24/19 17:00 05/28/19 18:26 Vitamin B-1 PO 100 mg DAILY@1700 KEVEN Administration Tramadol HCl 25 mg 05/24/19 14:41 05/28/19 18:43 Ultram PO 25 mg Q6HR PRN Administration Severe Pain Ursodiol 300 mg 05/24/19 21:00 05/29/19 09:08 Actigall PO 300 mg BID@0800,2100 KEVEN Administration Objective - Vital Signs Vital signs: Vital Signs Temp 98.1 F 05/29/19 08:00 Pulse 80 05/29/19 09:00 Resp 15 05/29/19 09:00 BP 92/59 05/29/19 09:00 Pulse Ox 83 L 05/29/19 09:00 Intake & Output 05/28/19 05/29/19 05/29/19 18:59 06:59 18:59 Intake Total 400 460 40 Output Total 1295 825 240 Balance -895 365 -200 Weight 72.2 kg Intake: IV 400 460 40 Cefepime 2 gm In Sodium 100 100 Chloride 0.9% 100 ml @ 200 mls/hr IVPB Q12HR KEVEN Rx#:[id number] Sodium Chloride 0.9% 1, 300 360 40 000 ml @ 20 mls/hr IV . Q24H KEVEN Rx#:[id number] Output: Urine 1295 825 240 Other: Voiding Method Indwelling Catheter Indwelling Catheter Indwelling Catheter - Exam -GENERAL: The patient is alert and oriented x1-2, not in any acute distress. Well developed, well nourished. HEENT: Pupils are round and equally reacting to light. EOMI. No scleral icterus. No conjunctival pallor. Normocephalic, atraumatic. No pharyngeal erythema. No t hyromegaly. CARDIOVASCULAR: S1 and S2 present. No murmurs, rubs, or gallops. PULMONARY: Chest is clear to auscultation, no wheezing or crackles. ABDOMEN: Soft, nontender, nondistended, normoactive bowel sounds. No palpable organomegaly. -MUSCULOSKELETAL: No joint swelling or deformity. Stage II decubitus sacral ulcer -EXTREMITIES: No cyanosis, clubbing,. She has swelling in all extremities. Bilateral foot wounds NEUROLOGICAL: Gross neurological examination did not reveal any focal deficits. SKIN: No rashes. - Labs CBC & Chem 7: 05/29/19 04:00 05/29/19 04:00 Labs: Abnormal Lab Results - Last 24 Hours (Table) 05/28/19 05/28/19 05/28/19 Range/Units 12:02 16:55 20:31 RBC (3.80-5.40) m/uL Hgb (11.4-16.0) gm/dL Hct (34.0-46.0) % RDW (11.5-15.5) % Plt Count (150-450) k/uL Sodium (137-145) mmol/L Carbon Dioxide (22-30) mmol/L Creatinine (0.52-1.04) mg/dL Glucose (74-99) mg/dL POC Glucose (mg/dL) 129 H 107 H 196 H (75-99) mg/dL Calcium (8.4-10.2) mg/dL 05/29/19 05/29/19 05/29/19 Range/Units 04:00 04:00 06:56 RBC 3.36 L (3.80-5.40) m/uL Hgb 10.0 L (11.4-16.0) gm/dL Hct 31.2 L (34.0-46.0) % RDW 18.0 H (11.5-15.5) % Plt Count 143 L (150-450) k/uL Sodium 133 L (137-145) mmol/L Carbon Dioxide 32 H (22-30) mmol/L Creatinine 0.51 L (0.52-1.04) mg/dL Glucose 118 H (74-99) mg/dL POC Glucose (mg/dL) 103 H (75-99) mg/dL Calcium 7.5 L (8.4-10.2) mg/dL Microbiology - Last 24 Hours (Table) 05/23/19 22:47 Blood Culture - Preliminary Blood No Growth after 120 hours 05/24/19 13:30 Gram Stain - Final Pleural Fluid Body Fluid Culture - Final Assessment and Plan Assessment: -Severe sepsis secondary to pressure ulcers on bilateral feet wound. Patient might have some elements of metabolic encephalopathy as well. Improving -Systemic inflammatory response with leukocytosis and hyperthermia, with tachycardia and tachypnea present on admission -Bilateral pleural effusion secondary to acute systolic on chronic congestive heart failure. Ejection fraction 30-35% -Generalized anasarca, mostly multifactorial including heart disease and infection. Improving on Lasix -History of pulmonary embolism status post IVC filter secondary to GI bleed -Bilateral heel wounds that she used to follow-up as an outpatient -History of ESBL E. coli UTI. Plan: This is a pleasant 83 years old female who presents with infection and congestive heart failure. Continue with antibiotics as per ID team recommendation. She is a status post thoracocentesis, follow-up Results. Follow-up recommendation from pulmonary/critical care team. Continue with L asix. Continue with Eliquis. Continue with midodrine Labs and medication were reviewed.. Continue same treatment. Continue with symptomatic treatment. Resume home medication. Monitor lytes and vitals. DVT and GI prophylaxis. Further recommendations of the clinical course of the patient DVT prophylaxis: Eliquis. GI prophylaxis: Protonix Prognosis is guarded
[2019-05-29 10:40] VITALS: BMI 25.7
[2019-05-29 12:24] LABS: Glucose,Whole Blood 162 mg/dL (75-99)
[2019-05-29] MEDS: traMADol 50 MG TAB PO PRN ×2 (12:50→17:35)
[2019-05-29] MEDS: SODIUM CHLORIDE 0.9% 1,000 ML IV SCH (12:56)
[2019-05-29 16:45] LABS: Glucose,Whole Blood 229 mg/dL (75-99)
[2019-05-29] MEDS: THIAMINE 100 MG TAB PO SCH (17:34)
--- NOTE | 2019-05-29 19:03 | PN ---
PROGRESS NOTE DATE OF SERVICE: 05/29/2019. REASON FOR FOLLOW UP: 1. /pneumonia. 2. Bilateral diabetic foot wound. 3. Stage III sacral pressure ulcer. INTERVAL HISTORY: The patient is currently afebrile. The patient is more awake and alert today. She is breathing comfortably. Minimal cough. No nausea, vomiting. No abdominal pain or any diarrhea. PHYSICAL EXAMINATION: Patient's blood pressure is 99/58 with a pulse of 80, temperature 98. She is 96% on room air. General description is an elderly female lying in bed in no distress. Respiratory system: Unlabored breathing with decreased breath sounds in the base, with no wheeze. Heart S1, S2. Regular rate and rhythm. Abdomen soft. No tenderness. Bilateral foot wound currently dressed up, no obvious drainage on the dressing. LABS: Hemoglobin is 10, with white count 7.9, BUN of 15, creatinine 0.51. Blood culture has been negative. Stool for culture has been negative as well. DIAGNOSTIC IMPRESSION/PLAN: 1. Patient admitted to the hospital with hypoglycemia and hypertension and elevated white count and mild pleural effusion status post thoracentesis. Cultures have been negative so far. Currently covered with Cefepime. Continue for short course. 2. Patient with bilateral diabetic foot wound with slough tissue. Local wound care with Medihoney, keep the area off pressure. 3. Patient has stage III sacral pressure ulcer. Local wound care with Medihoney. Keep the area off the pressure. MMODL / IJN: [id number] /
[2019-05-29 20:43] LABS: Glucose,Whole Blood 216 mg/dL (75-99)
[2019-05-30 03:26] LABS: Anisocytosis Slight; Basophils % (A) 0 %; Eosinophils # (A) 0.2 k/uL (0-0.7); Eosinophils % (A) 3 %; HGB 10.4 gm/dL (11.4-16.0); Lymphocytes # (A) 1.1 k/uL (1.0-4.8); Lymphocytes % (A) 18 %; MCHC 32.3 g/dL (31.0-37.0); MCV 92.7 fL (80.0-100.0); Mean Platelet Volume 7.9; Monocytes # (A) 0.4 k/uL (0-1.0); Monocytes % (A) 7 %; Neutrophils # (A) 4.4 k/uL (1.3-7.7); Neutrophils % (A) 71 %; Platelet Count 159 k/uL (150-450); RBC 3.46 m/uL (3.80-5.40); RDW 17.4 % (11.5-15.5); WBC 6.2 k/uL (3.8-10.6)
[2019-05-30 03:37] LABS: African American GFR (CKD) >90 (>60 ml/min/1.73 sqM); Anion Gap 1 mmol/L; Blood Urea Nitrogen 18 mg/dL (7-17); Calcium 7.6 mg/dL (8.4-10.2); Carbon Dioxide 33 mmol/L (22-30); Chloride 99 mmol/L (98-107); Glucose 113 mg/dL (74-99); Potassium 3.8 mmol/L (3.5-5.1); Sodium 133 mmol/L (137-145)
[2019-05-30] MEDS: POTASSIUM CHLORIDE 10 MEQ in WATER FOR INJECTION 1 100ML.BAG IVPB SCH ×2 (04:10→05:13)
[2019-05-30] MEDS: INSULIN ASPART (NovoLOG) 100 UNIT/ML VIAL SQ SCH ×3 (06:34→18:24)
[2019-05-30] MEDS: PANTOPRAZOLE 40 MG TABLET PO SCH (06:36)
[2019-05-30] MEDS: GABAPENTIN 100 MG CAP PO SCH ×2 (06:36→14:31)
[2019-05-30] MEDS: MIDODRINE 5 MG TAB PO SCH ×3 (06:36→18:39)
[2019-05-30 06:46] LABS: Glucose,Whole Blood 91 mg/dL (75-99)
[2019-05-30] MEDS: MAGNESIUM OXIDE 400 MG TAB PO SCH ×2 (08:59→16:13)
[2019-05-30] MEDS: PENTOXIFYLLINE 400 MG TABLET.ER PO SCH ×3 (09:00→16:14)
[2019-05-30] MEDS: SIMETHICONE 80 MG CHEWABLE PO SCH ×3 (09:00→16:14)
[2019-05-30] MEDS: URSODIOL 300 MG CAP PO SCH (09:00)
[2019-05-30] MEDS: OXYBUTYNIN XL 5 MG TAB.ER.24 PO SCH (09:00)
[2019-05-30] MEDS: ATORVASTATIN 40 MG TAB PO SCH (09:01)
[2019-05-30] MEDS: APIXABAN 5 MG TAB PO SCH (09:01)
[2019-05-30] MEDS: AMIODARONE 200 MG TAB PO SCH (09:01)
[2019-05-30] MEDS: CEFEPIME 2 GM in SODIUM CHLORIDE 0.9% 100 ML IVPB SCH (09:01)
[2019-05-30] MEDS: FUROSEMIDE 80 MG TAB PO SCH ×2 (09:02→16:13)
[2019-05-30] MEDS: POTASSIUM CHLORIDE ER 10 MEQ TAB.ER.PRT PO SCH (09:03)
[2019-05-30] MEDS: METOPROLOL TARTRATE 12.5 MG TAB PO SCH ×2 (09:03→16:13)
[2019-05-30] MEDS: SERTRALINE 25 MG TAB PO SCH (09:03)
[2019-05-30] MEDS: ACETAMINOPHEN TAB 325 MG TAB PO PRN ×2 (09:21→16:27)
--- NOTE | 2019-05-30 10:47 | P.PN ---
Subjective Progress Note Date: 05/30/19 Principal diagnosis: Recurrent episodes of hypoglycemia, metabolic encephalopathy, and bilateral pleural effusions this is an 83-year-old female with history of multiple medical problems including chronic atrial fibrillation, type 2 diabetes,coronary artery disease, hypertension, LV dysfunction with ejection fraction of 35%, previous AICD placement, diabetic ulcers in both feet bilaterally, recurrent urinary tract infections, previous ESBL urinary tract infection, cervical cancer, severe peripheral vessel occlusive disease, patient is a shelter patient, brought in yesterday mostly with complaints of mental status change, patient was noted to be confused, weak, did not eat her dinner, and she was noted to have hypoglycemia with blood sugar about 43. Patient was given glucagon injection by the shelter staff, her sugar came up to 51, and IV could not be estab lished. EMS arrived to the scene, and she was given 1 amp of D50. Her blood sugar improved, patient became more alert, and arrangements were made to transfer the patient to the hospital ER. Upon arrival to the ER, patient was noted to be hypotensive, apparently CODE STATUS was discussed with the patient, and it was confirmed to be DO NOT RESUSCITATE. Initially the family declined having a central line placement, however as there was extreme difficulty in establishing a peripheral IV access, finally the daughter agreed to a central line which was placed by the ER physician in the left groin. Patient had a chest x-ray which showed significant pleural effusion bilaterally. And a CT of the chest read as no evidence of pulmonary embolism, however as I reviewed the CT of the chest, discussed the findings with Dr. 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 It is similar to previous CT done on her last admission. Patient has been on Eliquis for DVT and pulmonary embolism. And supposedly compliant with it. In addition the CT of the chest showed significant bilateral pleural effusions right more so than left, and this was confirmed by ultrasound today. Patient was admitted to the ICU but she did not require any norepinephrine. She was given few fluid boluses in the ER, and her blood pressure seems to be stable at this point. She was placed on vancomycin and Levaquin empirically. Reevaluated today on 05/25/2019, patient remains in the ICU, she is presently on room air, however she is requiring 0.04 mcg/kg/m of norepinephrine. Blood pressures seems to be marginal. Patient had a follow-up chest x-ray this morning showed small bilateral pleural effusions, she underwent right sided thoracentesis yesterday, and I was able to drain about 1100 mL of free flowing fluid, most likely transudative in nature, workup is pending on the fluid. Again the patient is feeling great but since she remains on norepinephrine, I will keep in the ICU and was she is off norepinephrine we could possibly transferred to a regular medical floor. In the meantime she is receiving antibiotics, she is back on her anticoagulation therapy for pulmonary embolism, and she is on diuretics. She is being followed by many consultants. Reevaluated today on 05/26/2019, patient remains in the ICU, and the only reason she is in the ICU is because she is still requiring norepinephrine at 0.04 mcg/kg/m. Blood pressure remains marginal. Her urine output is excellent, chest x-ray is showing bilateral pleural effusions again, but since she had her right sided thoracentesis, the patient has been doing extremely well. The pleural effusion I drained from the right side is transudative in nature and clearly cardiogenic/related to congestive heart failure. Labs were all reviewed including CBC and electrolytes and renal profile be seen to be relatively unremarkable. Daughter is at bedside, and she was updated on her condition and why she is still in the ICU. Once we could discontinue norepinephrine, patient could be transferred to a cardiac floor or a regular medical floor with remote telemetry. Reevaluated today on 05/27/2019, patient remains in the ICU, however she has been off norepinephrine and her blood pressure seems to be marginal and stable. Patient remains on room air, denies any shortness of breath cough or wheezing, she had some headache earlier, and she was given Tylenol. Her last chest x-ray was done yesterday, plan to repeat her chest x-ray tomorrow for follow-up on her pleural effusions. Patient is on diuretics, she is also on anticoagulations therapy for her underlying thromboembolic disease/pulmonary embolism. Labs today showed relatively normal CBC hemoglobin is 10.5 and lites are normal renal profile is normal. Potassium is a bit low at 3.5 being corrected as per protocol. On 05/28/2019 patient seen in follow-up in the intensive care unit, she is awake and alert, in no acute distress, she is on room air with a pulse ox of 93-98%, afebrile, hemodynamically patient is stable, maintenance IVs 0.9 normal saline at a rate of 50, no other drips. Hemodynamically patient remains stable, he is in A. fib with a controlled rate on the monitor, patient is on oral anticoagulation for underlying chronic thromboembolic disease and chronic A. fib with a controlled rate, she denies any dyspnea, today's chest x-ray shows cardiomegaly, bibasilar increased density, bilateral pleural effusions, and adjacent atelectasis. Patient had right-sided thoracentesis with removal of 1.1 L of pleural fluid on 05/24/2019, with negative cytology and negative cultures, and the fluid was transudative in nature. Today she denies any specific complaints, she remains on IV Lasix, she is a slightly positive fluid balance over the last 24 hours, +200 mL, likely there is significant improvement in patient's dyspnea, and lower extremity edema. He will be transitioned to oral Lasix per cardiology recommendation, today's labs have been reviewed, her electrolytes and renal profile remains stable. He is receiving local wound care for her diabetic ulcers in bilateral lower extremities. She has been afebrile, abiotic coverage is in the form of cefepime and vancomycin. On 05/29/2019 patient seen in follow-up in the intensive care unit, she is awake and alert, in no acute distress, signs are stable, A. fib is controlled, she is on oral anticoagulation, maintenance IV fluids 0.9 normal saline a rate of 10 ML per hour, no vasoactive drips. No specific complaints, no acute events overnig ht, denies any chest pain, denies any shortness of breath, lung sounds reveal some minimal crackles at the right lower base posteriorly, no rhonchi or wheezing. Patient is on oral Lasix 80 mg twice daily, and she is in negative fluid balance 1260 mL. Her lung status is improving, no new chest x-ray today, labs reviewed, showing low blood cell count of 7.9, hemoglobin is 10, sodium is 133, potassium 3.7, chloride is 101, CO2 32, BUN is 15 creatinine is 0.51. Lower extremity edema has improved, local wound care per ID service recommendation, microbiology results have been reviewed, negative for growth and blood urine and pleural fluid cultures. Cytology of the pleural fluid was negative. Currently on cefepime and vancomycin. From pulmonary perspective patient is stable for discharge back to the ECF possibly in the next 24 hours. On 05/30/2019 patient seen in follow-up in intensive care unit, she is in no acute distress although she has significant generalized weakness, she states she gets exertional dyspnea, with fairly comfortable at rest, room air pulse ox is 96%, hemodynamically stable, afebrile, continues on oral diuretics and she is in negative fluid balance fluid volume status is improving, clinically patient is stable, breathing is stable, lung sounds as a for a few scattered basilar crackles, no rhonchi or wheezing, patient is on cefepime. No acute events overnight. Today's labs have been reviewed, WBC is 6.2, hemoglobin is 10.4, sodium is 133, potassium 3.8, chloride is 99, CO2 33, BUN is 18 creatinine 0.57, no new chest x-ray today. From pulmonary perspective patient has been stable, she is on appropriate antibiotic coverage, she is maintaining negative fluid balance on oral diuretics, fluid volume status has improved, she is on room air, she can be considered for discharge back to the ECF today Objective - Vital Signs Vital signs: Vital Signs Temp 97.5 F L 05/30/19 08:00 Pulse 61 05/30/19 08:00 Resp 14 05/30/19 08:00 BP 103/78 05/30/19 08:00 Pulse Ox 96 05/30/19 08:00 Intake & Output 05/29/19 05/30/19 05/30/19 18:59 06:59 18:59 Intake Total 140 220 120 Output Total 620 780 Balance -480 -560 120 Weight 72.2 kg 72.5 kg Intake: IV 140 220 120 Cefepime 2 gm In Sodium 100 100 Chloride 0.9% 100 ml @ 200 mls/hr IVPB Q12HR [facility] Rx#:[id number] Sodium Chloride 0.9% 1, 140 120 20 000 ml @ 20 mls/hr IV . Q24H [facility] Rx#:[id number] Output: Urine 620 780 Other: Voiding Method Indwelling Catheter Indwelling Catheter Indwelling Catheter # Bowel Movements 1 - Exam GENERAL EXAM: Alert, pleasant, 83-year-old white female, room air, with pulse ox of 96%, comfortable in no apparent distress. HEAD: Normocephalic/atraumatic. EYES: Normal reaction of pupils, equal size. Conjunctiva pink, sclera white. NOSE: Clear with pink turbinates. THROAT: No erythema or exudates. NECK: No masses, no JVD, no thyroid enlargement, no adenopathy. CHEST: No chest wall deformity. Symmetrical expansion. LUNGS: Equal air entry with no crackles, wheeze, rhonchi or dullness. Diminished breath sounds at bilateral bases, with minimal rales CVS: Irregular rate and rhythm, normal S1 and S2, no gallops, no murmurs, no rubs ABDOMEN: Soft, nontender. No hepatosplenomegaly, normal bowel sounds, no guarding or rigidity. EXTREMITIES: No clubbing, diabetic ulcers present to bilateral lower extremities, there is significant improvement in lower extremity edema, with only trace pretibial edema present to the left lower extremity, both legs are co larry with dressings, no cyanosis, 2+ pulses and upper and lower extremities. MUSCULOSKELETAL: Muscle strength and tone normal. SPINE: No scoliosis or deformity SKIN: No rashes CENTRAL NERVOUS SYSTEM: Alert and oriented -3. No focal deficits, tone is normal in all 4 extremities. PSYCHIATRIC: Alert and oriented -3. Appropriate affect. Intact judgment and insight. - Labs CBC & Chem 7: 05/30/19 03:00 05/30/19 03:00 Labs: Abnormal Lab Results - Last 24 Hours (Table) 05/29/19 05/29/19 05/29/19 Range/Units 12:11 16:41 20:40 RBC (3.80-5.40) m/uL Hgb (11.4-16.0) gm/dL Hct (34.0-46.0) % RDW (11.5-15.5) % Sodium (137-145) mmol/L Carbon Dioxide (22-30) mmol/L BUN (7-17) mg/dL Glucose (74-99) mg/dL POC Glucose (mg/dL) 162 H 229 H 216 H (75-99) mg/dL Calcium (8.4-10.2) mg/dL 05/30/19 05/30/19 Range/Units 03:00 03:00 RBC 3.46 L (3.80-5.40) m/uL Hgb 10.4 L (11.4-16.0) gm/dL Hct 32.0 L (34.0-46.0) % RDW 17.4 H (11.5-15.5) % Sodium 133 L (137-145) mmol/L Carbon Dioxide 33 H (22-30) mmol/L BUN 18 H (7-17) mg/dL Glucose 113 H (74-99) mg/dL POC Glucose (mg/dL) (75-99) mg/dL Calcium 7.6 L (8.4-10.2) mg/dL Microbiology - Last 24 Hours (Table) 05/23/19 22:47 Blood Culture - Final Blood No Growth after 144 hours Assessment and Plan Plan: 1 recurrent episodes of hypoglycemia, most likely secondary to poor oral intake, and the patient is on medications for diabetes, given to her at the shelter. This has resolved. 2 acute metabolic encephalopathy secondary to hypoglycemia. Improved. 3 recurrent episodes of urinary tract infection secondary to ESBL E. coli and pseudomonas aeruginosa. 3 bilateral pleural effusions secondary to systolic congestive heart failure. Status post right sided thoracentesis on 05/24/2019, 1100 mL of fluid drained from the right pleural space. 4 history of pulmonary embolism documented on previous admission, and noted on CT of the chest on this admission. 5 chronic atrial fibrillation 6 LV dysfunction with ejection fraction of 35% and previous AICD placement 7 underlying coronary artery disease 8 diabetic foot ulcers 9 type 2 diabetes 10 history of chronic pancreatitis 11 severe peripheral vessel occlusive disease involving lower extremities. 12 medical debility. Plan: Patient is stable, no acute events overnight, no fever or chills, maintaining stable saturations on room air, hemodynamically stable, she can be discharged to the ECF today from pulmonary perspective on antiemetics per ID service recommendations, oral diuretics. I performed a history & physical examination of the patient and discussed their management with my nurse practitioner, Beatrice Fierro. I reviewed the nurse practitioner's note and agree with the documented findings and plan of care. Lung sounds are positive for diminished breath sounds at bilateral bases. The findings and the impression was discussed with the patient. I attest to the documentation by the nurse practitioner. Time with Patient: Less than 30
[2019-05-30 11:44] LABS: Glucose,Whole Blood 128 mg/dL (75-99)
[2019-05-30] MEDS: THIAMINE 100 MG TAB PO SCH (16:14)
--- NOTE | 2019-05-30 16:22 | P.DS ---
Providers Date of admission: 05/24/19 02:15 Attending physician: Gabino Rogers Consults: 05/24/19 02:15 Consult Physician Stat Consulting Provider: Cj Choe Consult Reason/Comments: icu management Do you want consulting provider notified?: Already Contacted 05/24/19 10:38 Consult Physician Urgent Consulting Provider: Alejandro Cheng Consult Reason/Comments: Diabetic wounds/infectious disease Do you want consulting provider notified?: Yes 05/26/19 11:48 Consult Physician Urgent Consulting Provider: Dario Sheppard Consult Reason/Comments: h/o heart disease and acute systolic chf Do you want consulting provider notified?: Already Contacted 05/26/19 11:53 Consult Physician Urgent Consulting Provider: [facility] Consult Reason/Comments: frequent PVCs, v-runs 5-9 beats Do you want consulting provider notified?: Already Contacted Primary care physician: Farrukh Carrascoqvi [facility] Course: Diagnoses: -Severe sepsis secondary to pressure ulcers on bilateral feet wound. Patient might have some elements of metabolic encephalopathy as well. Improving -Systemic inflammatory response with leukocytosis and hyperthermia, with tachycardia and tachypnea present on admission -Bilateral pleural effusion secondary to acute systolic on chronic congestive heart failure. Ejection fraction 30-35% -Generalized anasarca, mostly multifactorial including heart disease and infection. Improving on Lasix -History of pulmonary embolism status post IVC filter secondary to GI bleed -Bilateral heel wounds that she used to follow-up as an outpatient -History of ESBL E. coli UTI. Hospital course: This is a pleasant 83 years old female with multiple medical problems presents to the emergency room with hyperthermia, hypoglycemia and found to have bilateral pleural effusion secondary to acute congestive heart failure. Her ejection fraction 30-35%. Status post left side thoracocentesis on 05/24/2019. Also she has history of pulmonary embolism status post IVC filter secondary to GI bleed. However she still on Eliquis. She is status post AICD. She has chronic bilateral feet want that been followed by Dr. cheng. Also she has history of ESBL E. coli. Patient herself is poor historian. However she is able to sit in chair comfortable in mild distress due to her pain and ulcers including bilateral feet ulcer and pressure ulcer, stage II. Patient has been treated in the ICU and needed to pressors for short-term, she's been followed by super consult us closely including critical care/pulmonary team, cardiology and infectious disease. Patient has been treated with broad-spectrum antibiotic with recommendation from infectious disease, also patient is on diuretics with Lasix 80 mg twice daily. Eliquis resumed and patient tolerated that well. Blood pressure remained in the low-normal signed however patient is asymptomatic regarding this and she has good urine output. Patient showed interval improvement and she is back close to her baseline. Patient was cleared for discharge by all consultants including pulmonary/critical care, cardiology and infectious disease team. pt is going to be discharge on ceftin as per ID recommendation Problems and management plan were discussed with the patient and he verbalized understanding and acceptance Patient was found stable and can be discharged home however he needs follow-up as an outpatient. Patient was instructed to follow up with her PCP in one week and she agrees. Gen: patient is a AAOx3, no distress. Generally weak CVS: S1-S2, RRR, no murmur Lungs: B/L CTA, no wheezing Abdomen: soft, no distention, no tenderness, positive bowel sounds Extremity: no leg edema or induration. Bilateral feet wounds, more on the left side Back: Pressure ulcers stage II Time spent more than 35 minutes Patient Condition at Discharge: Serious Plan - Discharge Summary New Discharge Prescriptions: New Furosemide [Lasix] 80 mg PO BID@0900,1600 tab Midodrine [ProAmatine] 5 mg PO AC-TID tab Pantoprazole [Protonix] 40 mg PO AC-BRKFST #15 tablet. Cefuroxime Axetil [Ceftin] 500 mg PO BID #10 tab Continue Pentoxifylline 400 mg PO TID@0800,1200,1700 Vit C/E/Zn/Coppr/Lutein/Zeaxan [Preservision Areds 2 Softgel] 1 cap PO BID Tolterodine Tartrate [Detrol LA] 4 mg PO DAILY@0800 Thiamine [Vitamin B-1] 100 mg PO DAILY@1700 Ergocalciferol [Vitamin D2 (DRISDOL)] 50,000 unit PO WE Magnesium Oxide [Mag-Ox] 400 mg PO BID@0800,1700 Vitamin B Complex 1 cap PO DAILY@1700 Diclofenac Sodium Gel [Voltaren Gel] 2 gm TOPICAL QID tube Collagenase [Santyl] 1 applic TOPICAL DAILY Ondansetron HCl [Zofran] 4 mg PO QID PRN PRN Reason: Nausea Magnesium Hydroxide [Milk of Magnesia Concentrate] 30 ml PO Q48H PRN PRN Reason: Constipation Na Phos,M-B/Na Phos,Di-Ba [Fleet Adult] 133 ml RECTAL DAILY PRN PRN Reason: Constipation Simethicone 80 mg PO TID@0800,1200,1700 Bisacodyl [Dulcolax] 10 mg RECTAL DAILY PRN PRN Reason: Constipation Ursodiol 300 mg PO BID@0800,2100 Talc-Zinc Oxide Powder 81-15% 1 applic TOPICAL BID@0800,1700 Liquacel (Amino Acids) 30 ml PO BID@0800,1700 Apixaban [Eliquis] 5 mg PO BID@0800,1700 INSULIN ASPART (NovoLOG) [NovoLOG (formulary)] See Protocol SQ AC-TID #1 vial Amiodarone [Cordarone] 200 mg PO DAILY tab Atorvastatin [Lipitor] 40 mg PO DAILY tab Sertraline [Zoloft] 25 mg PO DAILY tab Gabapentin [Neurontin] 100 mg PO TID@0600,1400,2100 #9 cap Acetaminophen Tab [Tylenol] 325 mg PO Q6HR PRN PRN Reason: Fever And/ Or Pain clonazePAM [KlonoPIN] 0.5 mg PO BID Collagenase [Santyl] 1 applic TOPICAL DAILY PRN PRN Reason: wound care both feet Esomeprazole Magnesium [NexIUM] 40 mg PO DAILY Glucerna Shake 1 can PO TID Menthol [Biofreeze] 1 applic TOPICAL DAILY PRN PRN Reason: LEFT SHOULDER PAIN Metoprolol Tartrate [Lopressor] 12.5 mg PO TID Potassium Chloride ER [K-Dur 10] 10 meq PO DAILY traMADol HCL [Ultram] 25 mg PO Q6HR PRN #8 tab PRN Reason: Severe Pain Discontinued metFORMIN HCL 1,000 mg PO BID@0800,1700 Midodrine HCl [ProAmantine] 2.5 mg PO BID Spironolactone [Aldactone] 12.5 mg PO DAILY tab Furosemide [Lasix] 20 mg PO DAILY #0 Discharge Medication List Pentoxifylline 400 mg PO TID@0800,1200,1700 12/13/16 [History] Vit C/E/Zn/Coppr/Lutein/Zeaxan [Preservision Areds 2 Softgel] 1 cap PO BID 11/10/17 [History] Ergocalciferol [Vitamin D2 (DRISDOL)] 50,000 unit PO WE 09/25/18 [History] Magnesium Oxide [Mag-Ox] 400 mg PO BID@0800,1700 09/25/18 [History] Thiamine [Vitamin B-1] 100 mg PO DAILY@1700 09/25/18 [History] Tolterodine Tartrate [Detrol LA] 4 mg PO DAILY@0800 09/25/18 [History] Vitamin B Complex 1 cap PO DAILY@1700 09/25/18 [History] Diclofenac Sodium Gel [Voltaren Gel] 2 gm TOPICAL QID tube 10/08/18 [Rx] Collagenase [Santyl] 1 applic TOPICAL DAILY 10/13/18 [History] Ondansetron HCl [Zofran] 4 mg PO QID PRN 10/13/18 [History] Magnesium Hydroxide [Milk of Magnesia Concentrate] 30 ml PO Q48H PRN 11/13/18 [History] Na Phos,M-B/Na Phos,Di-Ba [Fleet Adult] 133 ml RECTAL DAILY PRN 11/13/18 [History] Simethicone 80 mg PO TID@0800,1200,1700 11/27/18 [History] Apixaban [Eliquis] 5 mg PO BID@0800,1700 04/23/19 [History] Bisacodyl [Dulcolax] 10 mg RECTAL DAILY PRN 04/23/19 [History] Liquacel (Amino Acids) 30 ml PO BID@0800,1700 04/23/19 [History] Talc-Zinc Oxide Powder 81-15% 1 applic TOPICAL BID@0800,1700 04/23/19 [History] Ursodiol 300 mg PO BID@0800,2100 04/23/19 [History] INSULIN ASPART (NovoLOG) [NovoLOG (formulary)] See Protocol SQ AC-TID #1 vial 04/25/19 [Rx] Amiodarone [Cordarone] 200 mg PO DAILY tab 05/09/19 [Rx] Atorvastatin [Lipitor] 40 mg PO DAILY tab 05/09/19 [Rx] Gabapentin [Neurontin] 100 mg PO TID@0600,1400,2100 #9 cap 05/09/19 [Rx] Sertraline [Zoloft] 25 mg PO DAILY tab 05/09/19 [Rx] Acetaminophen Tab [Tylenol] 325 mg PO Q6HR PRN 05/23/19 [History] Collagenase [Santyl] 1 applic TOPICAL DAILY PRN 05/23/19 [History] Esomeprazole Magnesium [NexIUM] 40 mg PO DAILY 05/23/19 [History] Glucerna Shake 1 can PO TID 05/23/19 [History] Menthol [Biofreeze] 1 applic TOPICAL DAILY PRN 05/23/19 [History] Metoprolol Tartrate [Lopressor] 12.5 mg PO TID 05/23/19 [History] Potassium Chloride ER [K-Dur 10] 10 meq PO DAILY 05/23/19 [History] clonazePAM [KlonoPIN] 0.5 mg PO BID 05/23/19 [History] Cefuroxime Axetil [Ceftin] 500 mg PO BID #10 tab 05/30/19 [Rx] Furosemide [Lasix] 80 mg PO BID@0900,1600 tab 05/30/19 [Rx] Midodrine [ProAmatine] 5 mg PO AC-TID tab 05/30/19 [Rx] Pantoprazole [Protonix] 40 mg PO AC-BRKFST #15 tablet. 05/30/19 [Rx] traMADol HCL [Ultram] 25 mg PO Q6HR PRN #8 tab 05/30/19 [Rx] Follow up Appointment(s)/Referral(s): Farrukh Kebede MD [Primary Care Provider] - 1-2 days
[2019-05-30 16:45] LABS: Glucose,Whole Blood 155 mg/dL (75-99)
[2019-05-30 16:45] LABS: Glucose,Whole Blood 149 mg/dL (75-99)
[2019-05-30 18:12] VITALS: BP 96/74; PULSE 113; RESP 17; TEMP 97.6
[2019-05-30] MEDS: DICLOFENAC SODIUM GEL 100 GM TUBE TOPICAL SCH ×3 (18:19→18:41)
[2019-05-30] MEDS: SODIUM CHLORIDE 0.9% 1,000 ML IV SCH (18:42)
--- NOTE | 2019-05-30 19:13 | PN ---
PROGRESS NOTE DATE OF SERVICE: 05/30/2019. REASON FOR FOLLOWUP: 1. Possible pneumonia. 2. Bilateral diabetic foot wound. 3. Stage III sacral pressure ulcer. INTERVAL HISTORY: The patient is currently afebrile. She has been breathing comfortably. Slightly weak and lethargy though. No nausea, no vomiting. No abdominal pain. No diarrhea reported by the nursing staff. On examination, blood pressure 100/65, pulse of 71, temperature 97.8. She is 97% on room air. General description is an elderly female lying in bed in no distress. Respiratory system: Unlabored breathing. Clear to auscultation anteriorly. Heart S1, S2. Regular rate and rhythm. Abdomen soft, no tenderness. Left foot lateral border wound has mostly dry eschar with no surrounding redness. The bilateral feet medial border wound with slough tissue, more on the right side, but no secondary cellulitis. LABS: Hemoglobin 10.4, white count 6.2, BUN of 18, creatinine 0.57. Blood, urine and pleural fluid culture has been negative. DIAGNOSTIC IMPRESSION/PLAN: 1. Patient admitted to the hospital with hyperglycemia, hyperthermia and hypertension could have been multifactorial with concern for possible pneumonia initially. The patient also has pleural effusion status post thoracocentesis and culture has been negative so far. Plan at this time is to switch her over to oral Ceftin for short course. 2. the feet medial border wounds to be treated with Medihoney. The left foot lateral border wound with a dry dressing and to protect it from pressure. 3. wound. Continue local wound care as ordered. Keep the area off the pressure. MMODL / IJN: [id number] /
[2019-05-30] MEDS ORDERED: CEFDINIR 300 MG CAP PO SCH (21:00)
== END 2019-05-30 19:07 | DRG 871 ==
LOC: EC 22:20 → 2SICU 05-24 02:15
PROVIDERS: ADMIT Hospitalist; ATTEND Hospitalist
PROC: 02HV33Z Insertion of Infusion Device into Superior Vena Cava, Percutaneous Approach (ICD-10-PCS; principal; 2019-05-24)
PROC: 0W993ZX Drainage of Right Pleural Cavity, Percutaneous Approach, Diagnostic (ICD-10-PCS; 2019-05-24)
DX: A41.9 Sepsis, unspecified organism (principal); L89.153 Pressure ulcer of sacral region, stage 3; G93.41 Metabolic encephalopathy; I50.23 Acute on chronic systolic (congestive) heart failure; J18.9 Pneumonia, unspecified organism; R65.21 Severe sepsis with septic shock; I48.1 Persistent atrial fibrillation; I50.22 Chronic systolic (congestive) heart failure; J98.11 Atelectasis; K86.1 Other chronic pancreatitis; N39.0 Urinary tract infection, site not specified; J90 Pleural effusion, not elsewhere classified; Z87.440 Personal history of urinary (tract) infections; D69.6 Thrombocytopenia, unspecified; E11.51 Type 2 diabetes mellitus with diabetic peripheral angiopathy without gangrene; E11.621 Type 2 diabetes mellitus with foot ulcer; E11.649 Type 2 diabetes mellitus with hypoglycemia without coma; E78.5 Hyperlipidemia, unspecified; H91.90 Unspecified hearing loss, unspecified ear; I11.0 Hypertensive heart disease with heart failure; I25.10 Atherosclerotic heart disease of native coronary artery without angina pectoris; I25.5 Ischemic cardiomyopathy; Z86.711 Personal history of pulmonary embolism; Z79.01 Long term (current) use of anticoagulants; Z95.828 Presence of other vascular implants and grafts; I49.3 Ventricular premature depolarization; K21.9 Gastro-esophageal reflux disease without esophagitis; K57.30 Diverticulosis of large intestine without perforation or abscess without bleeding; L89.92 Pressure ulcer of unspecified site, stage 2; L97.519 Non-pressure chronic ulcer of other part of right foot with unspecified severity; L97.529 Non-pressure chronic ulcer of other part of left foot with unspecified severity; M19.90 Unspecified osteoarthritis, unspecified site; Z66 Do not resuscitate; Z79.84 Long term (current) use of oral hypoglycemic drugs; Z79.899 Other long term (current) drug therapy; Z82.49 Family history of ischemic heart disease and other diseases of the circulatory system; Z83.3 Family history of diabetes mellitus; Z85.41 Personal history of malignant neoplasm of cervix uteri; Z86.19 Personal history of other infectious and parasitic diseases; Z87.891 Personal history of nicotine dependence; Z95.810 Presence of automatic (implantable) cardiac defibrillator
CPT/HCPCS: 36415; 36556; 70450; 71045; 71275; 74177; 76604; 80048; 80053; 80202; 81003; 82140; 82533; 82550; 82945; 83605; 83615; 83735; 83880; 84132; 84157; 84484; 85025; 85379; 85610; 85730; 87040; 87070; 87086; 87205; 88108; 88305; 93005; 93306; 96361; 96365; 96366; 96368; 96375; 96376; 99285